=== PATIENT | female | born 1960 | race Two or more races ===

== ENCOUNTER 2020-08-19 09:46 | Inpatient (IN) | payer MEDICARE, SELFPAY ==
[2020-08-19] VITALS (38 sets, daily range): BP systolic 121–225; BP diastolic 56–99; PULSE 71–90; RESP 14–28; TEMP 36.4–37.2; O2SAT 90–99; BMI 33.3
--- NOTE | ~2020-08-19 | CT_ITS ---
EXAMINATION: CT CHEST WITHOUT CONTRAST CLINICAL INFORMATION: Pneumonia versus fluid overload. COMPARISON: Chest radiograph done earlier today. TECHNIQUE: Multidetector volumetric CT imaging of the chest was done. Axial MIP volume rendering provided. Sagittal and coronal reformatted images were obtained. This CT examination was performed using dose optimization techniques as appropriate, variously including the following: *Automated exposure control *Adjustment of mA and/or kV according to patient size (this includes techniques or standardized protocols for targeted exams where dose is matched to indication/reason for exam; i.e. extremities or head) *Use of iterative reconstruction technique DLP: 391.0 mGy-cm FINDINGS: COMMUNICATIONS PROFESSIONAL: Abnormal, similar to prior chest radiograph done earlier today. LUNGS: Concordant with chest radiograph done earlier today, multilobar bilateral diffuse patchy nodular as well as groundglass airspace disease is noted throughout both lung mock with relative sparing of the peripheral lung mock. The tracheobronchial tree is patent. There MEDIASTINUM: Right paratracheal 1.2 cm lymph node is noted. Atherosclerotic disease of the aorta and is branches including coronary arterial significant calcifications are noted. PLEURA: Trace amount of bilateral nondrainable pleural effusion is seen. AXILLA: No lymphadenopathy. UPPER ABDOMEN: Unremarkable. OSSEOUS STRUCTURES: Remarkable for presence of mild trilevel degenerative spondylosis and significant small Schmorl's node related endplate changes throughout the entire predominantly lower thoracic spine. Note is also made of generalized increased bony density, consistent with osteosclerosis of the entire visualized axial and appendicular skeleton. CT/CT chest wo con IMPRESSION: 1. Concordant with prior chest radiograph, multilobar bilateral diffuse patchy nodular as well as groundglass airspace disease is noted throughout both lung mock with relative sparing of the peripheral lung mock. The appearance is nonspecific, possible differential diagnostic consideration would include pneumonia versus cardiogenic as well as noncardiogenic pulmonary edema and also of pulmonary hemorrhage in the appropriate clinical setting. 2. Solitary right paratracheal 1.2 cm enlarged lymph node. 3. Significant atherosclerotic disease of the aorta and is branches including coronary arterial calcifications. 4. Trace amount of bilateral nondrainable pleural effusions. 5. The osseous skeleton is remarkable for presence of generalized diffuse increased density, consistent with osteosclerosis and superimposed multilevel Schmorl's node related endplate changes predominantly at lower thoracic spine, of indeterminate etiology. Clinical, lab correlation is recommended. Differential includes metabolic bone disease including chronic renal failure, as well as osseous metastasis.
--- NOTE | ~2020-08-19 | XR_ITS ---
EXAMINATION: XR CHEST CLINICAL INFORMATION: Fluid overload. COMPARISON: None TECHNIQUE: Frontal view of the chest was obtained. FINDINGS: Multilobar patchy airspace disease is present bilaterally with relative sparing of the peripheral lung mock. Trace amount of left-sided effusion is noted. The cardiac mediastinal silhouette is within normal limit. No evidence of any pulmonary venous congestion. The visualized upper abdomen is unremarkable. XR/XR chest 1V IMPRESSION: Multilobar patchy airspace disease is present bilaterally, may represent changes secondary to fluid overload versus pneumonia or combination thereof. Trace amount of left-sided nondrainable pleural effusion.
--- NOTE | 2020-08-19 10:03 | ED.GENADULT ---
HPI - General Adult General Chief complaint: Dyspnea Stated complaint: DIFF BREATHING Time Seen by Provider: 08/19/20 09:50 Source: patient Mode of arrival: ambulatory Limitations: no limitations History of Present Illness HPI narrative: patient presents to the ED waking up with shortness of breath. Patient states slight cough. Patient has a renal dialysis patient. patient last dialysis was Wednesday. Patient denies missing her dialysis. Patient denies any fever, chills, chest pain, swelling of legs. daughter states patient just moved from [facility] and started dialysis at [place] and has new PCP and new elementary school director she has not met yet. Patient states she is vaccinated against the COVID virus Related Data Home Medications Medication Instructions Recorded Confirmed aspirin 81 mg PO DAILY 08/19/20 08/19/20 atorvastatin 1 tab PO DAILY 08/19/20 08/19/20 cholecalciferol (vitamin D3) 1,000 unit PO DAILY 08/19/20 08/19/20 [Vitamin D3] ferrous sulfate 325 mg PO DAILY 08/19/20 08/19/20 insulin aspart U-100 [Novolog See Protocol SUBCUT 08/19/20 U-100 Insulin aspart] insulin glargine [Lantus U-100 See Rx Instructions .ROUTE .COMPLEX 08/19/20 08/19/20 Insulin] labetalol 1 tab PO BID 08/19/20 08/19/20 levothyroxine 1 tab PO DAILY 08/19/20 08/19/20 methylcellulose (laxative) [Fiber 500 mg PO DAILY 08/19/20 08/19/20 Therapy (m-cellulose)] omeprazole 1 cap PO BID 08/19/20 08/19/20 ondansetron HCl 1 tab PO DAILY PRN 08/19/20 08/19/20 vitamin [id number] acid 1,000 mcg PO DAILY 08/19/20 08/19/20 Allergies Allergy/AdvReac Type Severity Reaction Status Date / Time No Known Allergies Allergy Verified 08/19/20 09:57 Review of Systems Review of Systems: Yes all other systems are reviewed and are negative Constitutional: Constitutional: Reports as per HPI and Reports no additional constitutional complaints Eyes: Eyes: Reports as per HPI and Reports no additional eye complaints ENT: Reports system reviewed and no additional complaints, except as documented and Reports as per HPI Cardiovascular: Cardiovascular: Reports as per HPI, Reports no additional cardiovascular complaints, Denies chest pain and Reports dyspnea Respiratory: Respiratory: Reports as per HPI, Reports no additional respiratory complaints, Reports cough and Reports dyspnea Gastrointestinal: Gastrointestinal: Reports as per HPI and Reports no additional gastrointestinal complaints Genitourinary: Genitourinary: Reports no additional female genitourinary complaints and Reports as per HPI Musculoskeletal: Musculoskeletal: Reports no additional musculoskeletal complaints and Reports as per HPI Neurologic: Reports system reviewed and no additional complaints, except as documented and Reports as per HPI Psychiatric: Psychiatric: Reports no additional psychiatric complaints and Reports as per HPI [facility] Past Medical History Medical History (Updated 08/19/20 @ 14:32 by CARIN Vance) Diabetes mellitus End stage renal disease Social History Social History Patient Tobacco Use Status: Never used Tobacco Use of substances other than those prescribed or required for medical reasons: No Advance Directives: Yes Advance Directives Information Provided: Yes Advance Directives on File: No service: No Current occupational status: disabled Physical Exam Vital Signs: Vital Signs: Last Vital Signs Temp 98.9 F 08/19/20 10:43 Pulse 78 08/19/20 14:00 Resp 25 H 08/19/20 14:00 BP 169/94 H 08/19/20 14:00 Pulse Ox 97 08/19/20 14:00 Oxygen Flow Rate 4 08/19/20 09:58 Body Mass Index 33.3 Const: Other: mild distress General: cooperative, healthy appearing, comfortable, no acute distress, well developed, alert and awake Orientation/consciousness: patient oriented x3 HENMT: Head: Yes normal to inspection, Yes No palpable skull fracture present, Yes normocephalic, Yes atraumatic and No abrasion Eyes: General: appearance normal, both eyes and all related structures Neck: Neck: Yes normal visual inspection, Yes full ROM, Yes no lymphadenopathy, Yes no meningeal signs, Yes trachea midline, Yes supple and No tender Chest: Chest palpation & inspection: normal inspection of the chest and normal palpation of entire chest wall Resp: Effort & Inspection: normal respiratory effort, able to speak in complete sentences and uses accessory muscles ( mild) Cardio: Jugular venous distension: no JVD Heart sounds: S1 normal heart sound present and S2 normal heart sound present GI: Inspection: Yes normal to inspection and No abdominal wall ecchymosis Palpation (GI): Soft to palpation, not firm, nontender, no guarding and not rigid : General: No CVA tenderness and Yes no CVA tenderness Back/Spine/Pelvis: Back: no CVA tenderness, No CVA tenderness and No back tenderness Skin: General skin exam: no rashes or lesions noted and elasticity normal Neuro: General: patient oriented x3, gait normal, no meningeal signs and CN's II-XI intact bilaterally Extrem: Other: lower extremities negative for swelling, pitting edema, calf tenderness General: Yes normal to inspection and Yes full ROM Psych: Appearance: grossly normal, well kempt and not disheveled Course Course Course Narrative: patient on room air was 84%. Patient placed on 4 L oxygen and now at 94%. Ordered include troponin BNP. Chest x-ray ordered look for pneumonia and for signs of fluid overload. Lasix ordered. Type and screen ordered due to history of anemia in case patient needs blood transfusion. Patient states she received 3 L of blood transfusion last month. Pressure systolic 170. patient's daughter informed patient the need to go on BiPAP if no improvement and shows fluid overload. patient denies any history of asthma COPD. Reevaluation(s) Reevaluation #1: Patient's blood pressure increased to 190 systolic with accessory use of muscles. nitro paste ordered. will need BiPAP so Time: 10:43 Reevaluation #2: went to re-evaluate patient. Patient states feeling better oxygen nasal cannula. Lasix just given. Blood pressure does not improve nitro paste will be given. COVID swab negative. patient is a 8.4 with 29.4. Waiting for labs from for [facility] provider to compare hemoglobin from last visit at dialysis. Time: 10:50 Reevaluation #3: patient placed on BiPAP and nitro paste placed. Will contact Nephrology. Lactic and blood culture ordered. will contact elementary school director on-call Time: 11:16 Additional Reevaluation(s): spoke with elementary school director on-call he was informed patient's history, physical exam, and diagnostics. He is agreeable the patient to have dialysis. He recommends placing patient on nitroglycerin drip. He will come and evaluate patient. 11:32. Although x-ray shows pneumonia most likely this is a fluid overload as stated by radiologist. spoke with Dr. Ferro who is the covering elementary school director for patient care and he agreed with plan for elementary school director and he will organize dialysis for patient. Also spoke with Dr. zeynep Yanes of ICU he was informed patient's history physical exam and diagnostic and states he will take patient to the ICU. 12:04pm. History, and physical exam indicates fluid overload and not pneumonia. ICU doctor and elementary school director is agreeable with assessment Medical Decision Making MDM Narrative Medical decision making narrative: renal failurefluid overload Lab Data Result diagrams: 08/19/20 10:21 08/19/20 10:21 Labs: Lab Results 08/19/20 08/19/20 08/19/20 Range/Units 10:20 10:21 10:21 WBC 10.6 (4.8-10.8) X10*3/uL RBC 3.11 L (4.20-5.50) X10*6/uL Hgb 8.4 L (12.0-16.0) g/dl Hct 29.4 L (37-47) % MCV 94.5 (80-98) fL MCH 27.0 (27.0-33.0) pg MCHC 28.6 L (31.0-35.0) g/dl RDW 14.9 (11.0-16.0) % Plt Count 303 (160-400) X10*3/uL MPV 10.7 (9.4-12.3) fL Immature Gran % (Auto) 0.3 (0.0-0.4) % Neut % (Auto) 83.0 H (45-73) % Lymph % (Auto) 7.6 L (20-40) % Clayton % (Auto) 5.2 (2-11) % Eos % (Auto) 3.3 (0-4) % Baso % (Auto) 0.6 (0-2) % Lymph # (Auto) 0.8 L (1.2-4.9) X10*3/uL Clayton # (Auto) 0.6 (0.1-1.2) X10*3/uL Eos # (Auto) 0.4 (0.0-0.4) X10*3/uL Baso # (Auto) 0.1 (0.0-0.2) X10*3/uL Abs Immat Gran (auto) 0.03 (0.00-0.03) X10*3/uL Absolute Neuts (auto) 8.8 H (2.0-8.3) X10*3/uL Absolute Nucleated RBC 0.000 (0.0-0.012) X10*3/uL Nucleated RBC % (auto) 0.0 (0.0-0.2) /100WBC PT (9.9-13.0) SEC INR (0.9-1.1) APTT (24.1-38.0) SEC Sodium 143 (135-145) mmol/L Potassium 5.6 H (3.3-5.1) mmol/L Chloride 105 (96-108) mmol/L Carbon Dioxide 21 L (22-29) mmol/L Anion Gap 23 H (12-20) BUN 78 H (9-16) mg/dL Creatinine 10.00 H* (0.5-1.4) mg/dL Estim Creat Clear Calc 6.5 Estimated GFR 4 Random Glucose 232 H (60-115) mg/dL Lactic Acid (0.5-2.0) mmol/L Calcium 9.0 (8.4-10.2) mg/dL Total Bilirubin 0.7 (0.0-1.0) mg/dL AST 9 (5-31) U/L ALT < 6 (0-31) U/L Alkaline Phosphatase 145 H (39-117) U/L Troponin I High Sens < 3.5 (<3.5-17.0) ng/L B-Natriuretic Peptide 2241 H (<100) pg/mL Total Protein 6.5 (6.5-8.0) g/dL Albumin 3.6 (3.5-5.0) g/dL COVID-19 (ALFRED) (Negative) COVID-19 Clin Com Blood Type Antibody Screen 08/19/20 08/19/20 08/19/20 Range/Units 10:22 10:22 10:49 WBC (4.8-10.8) X10*3/uL RBC (4.20-5.50) X10*6/uL Hgb (12.0-16.0) g/dl Hct (37-47) % MCV (80-98) fL MCH (27.0-33.0) pg MCHC (31.0-35.0) g/dl RDW (11.0-16.0) % Plt Count (160-400) X10*3/uL MPV (9.4-12.3) fL Immature Gran % (Auto) (0.0-0.4) % Neut % (Auto) (45-73) % Lymph % (Auto) (20-40) % Clayton % (Auto) (2-11) % Eos % (Auto) (0-4) % Baso % (Auto) (0-2) % Lymph # (Auto) (1.2-4.9) X10*3/uL Clayton # (Auto) (0.1-1.2) X10*3/uL Eos # (Auto) (0.0-0.4) X10*3/uL Baso # (Auto) (0.0-0.2) X10*3/uL Abs Immat Gran (auto) (0.00-0.03) X10*3/uL Absolute Neuts (auto) (2.0-8.3) X10*3/uL Absolute Nucleated RBC (0.0-0.012) X10*3/uL Nucleated RBC % (auto) (0.0-0.2) /100WBC PT 12.1 (9.9-13.0) SEC INR 1.1 (0.9-1.1) APTT 46.1 H (24.1-38.0) SEC Sodium (135-145) mmol/L Potassium (3.3-5.1) mmol/L Chloride (96-108) mmol/L Carbon Dioxide (22-29) mmol/L Anion Gap (12-20) BUN (9-16) mg/dL Creatinine (0.5-1.4) mg/dL Estim Creat Clear Calc Estimated GFR Random Glucose (60-115) mg/dL Lactic Acid (0.5-2.0) mmol/L Calcium (8.4-10.2) mg/dL Total Bilirubin (0.0-1.0) mg/dL AST (5-31) U/L ALT (0-31) U/L Alkaline Phosphatase (39-117) U/L Troponin I High Sens (<3.5-17.0) ng/L B-Natriuretic Peptide (<100) pg/mL Total Protein (6.5-8.0) g/dL Albumin (3.5-5.0) g/dL COVID-19 (ALFRED) Negative (Negative) COVID-19 Clin Com See Note Blood Type O Negative Antibody Screen NEGATIVE 08/19/20 Range/Units 11:19 WBC (4.8-10.8) X10*3/uL RBC (4.20-5.50) X10*6/uL Hgb (12.0-16.0) g/dl Hct (37-47) % MCV (80-98) fL MCH (27.0-33.0) pg MCHC (31.0-35.0) g/dl RDW (11.0-16.0) % Plt Count (160-400) X10*3/uL MPV (9.4-12.3) fL Immature Gran % (Auto) (0.0-0.4) % Neut % (Auto) (45-73) % Lymph % (Auto) (20-40) % Clayton % (Auto) (2-11) % Eos % (Auto) (0-4) % Baso % (Auto) (0-2) % Lymph # (Auto) (1.2-4.9) X10*3/uL Clayton # (Auto) (0.1-1.2) X10*3/uL Eos # (Auto) (0.0-0.4) X10*3/uL Baso # (Auto) (0.0-0.2) X10*3/uL Abs Immat Gran (auto) (0.00-0.03) X10*3/uL Absolute Neuts (auto) (2.0-8.3) X10*3/uL Absolute Nucleated RBC (0.0-0.012) X10*3/uL Nucleated RBC % (auto) (0.0-0.2) /100WBC PT (9.9-13.0) SEC INR (0.9-1.1) APTT (24.1-38.0) SEC Sodium (135-145) mmol/L Potassium (3.3-5.1) mmol/L Chloride (96-108) mmol/L Carbon Dioxide (22-29) mmol/L Anion Gap (12-20) BUN (9-16) mg/dL Creatinine (0.5-1.4) mg/dL Estim Creat Clear Calc Estimated GFR Random Glucose (60-115) mg/dL Lactic Acid 1.1 (0.5-2.0) mmol/L Calcium (8.4-10.2) mg/dL Total Bilirubin (0.0-1.0) mg/dL AST (5-31) U/L ALT (0-31) U/L Alkaline Phosphatase (39-117) U/L Troponin I High Sens (<3.5-17.0) ng/L B-Natriuretic Peptide (<100) pg/mL Total Protein (6.5-8.0) g/dL Albumin (3.5-5.0) g/dL COVID-19 (ALFRED) (Negative) COVID-19 Clin Com Blood Type Antibody Screen ECG Data Interpretation: normal sinus rhythm. Incomplete right bundle-branch block. Ventricular rate 83. Pr interval 150. QRS 98. QTC 474 per Critical Care Time Critical Care Time Critical Care Time: Yes Total Critical Care Time: 60 Attestation: patient seems to be in fluid overload. Patient given Lasix. Nitropaste. Placed on BiPAP. Nephrology was called. Chest x-ray shows fluid overload. Patient placed on nitro drip. Patient admitted to ICU. Patient going for dialysis. Discharge Plan Discharge Clinical Impression: End stage renal disease, Fluid overload Patient Disposition: Admitted As Inpatient
--- NOTE | 2020-08-19 10:09 | ECG_ITS ---
Test Reason : DYSPNEA Blood Pressure : / mmHG Vent. Rate : 083 BPM Atrial Rate : 083 BPM P-R Int : 150 ms QRS Dur : 098 ms QT Int : 404 ms P-R-T Axes : 050 054 040 degrees QTc Int : 474 ms Normal sinus rhythm Incomplete right bundle branch block Borderline ECG No previous ECGs available Referred By: Branden Humphries Electronically Signed By:STEVE MONAHAN
[2020-08-19 10:29] LABS: MANUAL DIFF FLAG NO
[2020-08-19 10:30] LABS: Basophils Absolute Auto 0.1 X10*3/uL (0.0-0.2); Basophils Percent Auto 0.6 % (0-2); Eosinophils Absolute Auto 0.4 X10*3/uL (0.0-0.4); Eosinophils Percent Auto 3.3 % (0-4); Hematocrit 29.4 % (37-47); Hemoglobin 8.4 g/dl (12.0-16.0); Imm Gran Abs Auto 0.03 X10*3/uL (0.00-0.03); Imm Gran Pct Auto 0.3 % (0.0-0.4); Lymphocytes Absolute Auto 0.8 X10*3/uL (1.2-4.9); Lymphocytes Percent Auto 7.6 % (20-40); Mean Corpuscular HGB Conc 28.6 g/dl (31.0-35.0); Mean Corpuscular Volume 94.5 fL (80-98); Mean Platelet Volume 10.7 fL (9.4-12.3); Monocytes Absolute Auto 0.6 X10*3/uL (0.1-1.2); Monocytes Percent Auto 5.2 % (2-11); Neutrophils Absolute Auto 8.8 X10*3/uL (2.0-8.3); Platelet Count 303 X10*3/uL (160-400); Red Blood Count 3.11 X10*6/uL (4.20-5.50); Red Cell Distribution Width 14.9 % (11.0-16.0); White Blood Count 10.6 X10*3/uL (4.8-10.8)
[2020-08-19] MEDS: Furosemide 40 MG/4 ML VIAL IVPUSH (10:33)
[2020-08-19 10:37] LABS: INTERNATIONAL NORM RATIO 1.1 (0.9-1.1); Prothrombin Time 12.1 SEC (9.9-13.0)
[2020-08-19 10:39] LABS: Partial Thromboplastin Time 46.1 SEC (24.1-38.0)
[2020-08-19 10:46] LABS: COVID-19 Test Negative (Negative)
--- NOTE | 2020-08-19 10:50 | PC.NURSE ---
Pt alert and oriented x3, Pt reports sob and slight non-productive cough starting this morning when she woke up. Patient has a renal dialysis patient, last dialysis was done last Wednesday. She states she never missed any her dialysis. Patient denies any fever, chills, chest pain, swelling of legs.
[2020-08-19 10:55] LABS: Alanine Aminotransferase < 6 U/L (0-31); Albumin Level 3.6 g/dL (3.5-5.0); Alkaline Phosphatase 145 U/L (39-117); Anion Gap 23 (12-20); Aspartate Amino Transferase 9 U/L (5-31); Bilirubin Total 0.7 mg/dL (0.0-1.0); Blood Urea Nitrogen 78 mg/dL (9-16); Carbon Dioxide 21 mmol/L (22-29); Chloride 105 mmol/L (96-108); Creatinine Clr Calc Pharmacy 6.5; Estimated Glomerular Filt Rate 4; Glucose Random 232 mg/dL (60-115); Potassium 5.6 mmol/L (3.3-5.1); Sodium 143 mmol/L (135-145); Total Protein 6.5 g/dL (6.5-8.0)
[2020-08-19] MEDS: Nitroglycerin 2 % Oint 1 GM Packet 0.5 INCH TRANSDERMA (10:57)
[2020-08-19 10:58] LABS: B Type Natriuretic Peptide 2241 pg/mL (<100); Troponin-I High Sensitivity < 3.5 ng/L (<3.5-17.0)
--- NOTE | 2020-08-19 11:00 | PC.NURSE ---
BP in the high 190s. Labetolol given as documented. Pt remains hypertensive. IV nitro started at 20mcg/min and titrated per protocol. No apparent distress noted. Daughter at bedside.
--- NOTE | 2020-08-19 11:00 | PC.NURSE ---
On arrival pt's O2 sat high 80s RA. Pt satting at 97-98% with 4L O2 NC applied. Pt has dialysis schedule for 3pm this afternoon.
[2020-08-19] MEDS: Nitroglycerin 2 % Oint 1 GM Packet 1 INCH TRANSDERMA (11:11)
[2020-08-19] MEDS: Labetalol HCL 100 MG/20 ML VIAL 10 MG IVPUSH (11:28)
[2020-08-19 11:42] LABS: Lactic Acid 1.1 mmol/L (0.5-2.0)
[2020-08-19] MEDS: Nitroglycerin/D5W 100 MG/250 ML INFUS..BTL IVCONT (11:52)
--- NOTE | 2020-08-19 12:24 | PC.NURSE ---
pt/pt's daughter aware of plan of care for admission to hosp and dialysis of pt.
--- NOTE | 2020-08-19 12:28 | PC.NURSE ---
nitro drip increase from 20mcg/min to 40mcg/min to now 60mcg/min per dr. hair(icu) pt blair well
--- NOTE | 2020-08-19 12:29 | SUR.OPER ---
per dr. hair (icu) sbp goal is 180 or less.
--- NOTE | 2020-08-19 12:45 | PC.NURSE ---
eren (brenden) at bedside, explaining plan/procedures to pt/daughter. pt/daughter verbalizes understanding. pt/daughter aware of plan of care for admission to icu/dialysis.
--- NOTE | 2020-08-19 13:12 | P.HPCC_ITS ---
History of Present Illness Date of Service: 08/19/20 Chief Complaint: dyspnea 60-year-old chronic hemodialysis patient for end-stage renal disease with insulin dependent diabetes mellitus and hypertension who takes only labetalol for the latter and has never missed dialysis last treatment on Wednesday which was 3-1/2 hours yet she presents with what appears to be acute pulmonary edema troponin negative in normal sinus rhythm with no ST-T changes and no history of ischemic heart disease and my bedside echo shows mild concentric hypertrophy preserved systolic function mild to moderate AI and MR and aortic valve calcification but no critical stenosis but IVC is normal diameter with normal inspiratory collapse so this might all be malignant hypertension as the presenting blood pressure exceeded 210-220 systolic currently on BiPAP with a diminishing respiratory effort and respiratory rate no accessory muscle use and no diaphragmatic effort and IV nitro is currently being titrated to a systolic pressure of 180 or slightly less and were going to set up to do a dialysis because creatinine was unusually elevated at 10 and anion gap which does not represent either DKA or lactate and therefore probably due to renal insufficiency is significantly elevated at 23 so she the metabolically appears to be somewhat under dialyzed Review of Systems Review of Systems: Yes all other systems are reviewed and are negative [facility] Past Medical History Medical History (Updated 08/19/20 @ 13:18 by Cat Leonard MD) Diabetes mellitus End stage renal disease Social History Social History Patient Tobacco Use Status: Never used Tobacco Use of substances other than those prescribed or required for medical reasons: No Advance Directives: Yes Advance Directives Information Provided: Yes Advance Directives on File: No Meds Allergies Allergy/AdvReac Type Severity Reaction Status Date / Time No Known Allergies Allergy Verified 08/19/20 09:57 Active Medications: Current Medications Generic Name Dose Route Start Last Admin Trade Name Freq PRN Reason Stop Dose Admin Heparin Sodium (Porcine) 5,000 unit 08/19/20 13:15 Heparin Sodium,Porcine 5,000 Unit/Ml Vial SUBCUT Q12H [facility] Nitroglycerin/Dextrose 100 mg in 250 mls @ 0 mls/hr 08/19/20 11:45 08/19/20 12:52 IVCONT 100 mcg/min .Q0M [facility] 15 mls/hr Titration Protocol Per Protocol Omeprazole 40 mg 08/20/20 06:30 Omeprazole 40 Mg Capsule. PO DAILY@0630 [facility] Physical Exam Vital Signs: Vital Signs: Last Vital Signs Temp 98.9 F 08/19/20 10:43 Pulse 74 08/19/20 12:52 Resp 21 H 08/19/20 12:51 BP 199/77 H 08/19/20 12:51 Pulse Ox 96 08/19/20 12:51 Oxygen Flow Rate 4 08/19/20 09:58 Body Mass Index 33.3 awake and alert and appropriate and nonfocal neurologically diminishing respiratory effort on BiPAP with good bilateral carotid upstrokes just mild end-expiratory w heeze abdomen soft with good bowel sounds and no organomegaly trace right-sided peripheral edema but no acrocyanosis in no livedo Results Labs CBC and Chem 7: 08/19/20 10:21 08/19/20 10:21 Labs: Laboratory Results - last 24 hr 08/19/20 08/19/20 08/19/20 10:20 10:21 10:21 MCV 94.5 MCH 27.0 MCHC 28.6 L RDW 14.9 Plt Count 303 MPV 10.7 Immature Gran % (Auto) 0.3 Neut % (Auto) 83.0 H Lymph % (Auto) 7.6 L Loving % (Auto) 5.2 Eos % (Auto) 3.3 Baso % (Auto) 0.6 Lymph # (Auto) 0.8 L Loving # (Auto) 0.6 Eos # (Auto) 0.4 Baso # (Auto) 0.1 Abs Immat Gran (auto) 0.03 Absolute Neuts (auto) 8.8 H Absolute Nucleated RBC 0.000 Nucleated RBC % (auto) 0.0 PT INR APTT Anion Gap 23 H Estim Creat Clear Calc 6.5 Estimated GFR 4 Random Glucose 232 H Lactic Acid Calcium 9.0 Total Bilirubin 0.7 AST 9 ALT < 6 Alkaline Phosphatase 145 H Troponin I High Sens < 3.5 B-Natriuretic Peptide 2241 H Total Protein 6.5 Albumin 3.6 COVID-19 (ALFRED) COVID-19 Clin Com Blood Type Antibody Screen 08/19/20 08/19/20 08/19/20 10:22 10:22 10:49 MCV MCH MCHC RDW Plt Count MPV Immature Gran % (Auto) Neut % (Auto) Lymph % (Auto) Loving % (Auto) Eos % (Auto) Baso % (Auto) Lymph # (Auto) Loving # (Auto) Eos # (Auto) Baso # (Auto) Abs Immat Gran (auto) Absolute Neuts (auto) Absolute Nucleated RBC Nucleated RBC % (auto) PT 12.1 INR 1.1 APTT 46.1 H Anion Gap Estim Creat Clear Calc Estimated GFR Random Glucose Lactic Acid Calcium Total Bilirubin AST ALT Alkaline Phosphatase Troponin I High Sens B-Natriuretic Peptide Total Protein Albumin COVID-19 (ALFRED) Negative COVID-19 Clin Com See Note Blood Type O Negative Antibody Screen NEGATIVE 08/19/20 11:19 MCV MCH MCHC RDW Plt Count MPV Immature Gran % (Auto) Neut % (Auto) Lymph % (Auto) Loving % (Auto) Eos % (Auto) Baso % (Auto) Lymph # (Auto) Loving # (Auto) Eos # (Auto) Baso # (Auto) Abs Immat Gran (auto) Absolute Neuts (auto) Absolute Nucleated RBC Nucleated RBC % (auto) PT INR APTT Anion Gap Estim Creat Clear Calc Estimated GFR Random Glucose Lactic Acid 1.1 Calcium Total Bilirubin AST ALT Alkaline Phosphatase Troponin I High Sens B-Natriuretic Peptide Total Protein Albumin COVID-19 (ALFRED) COVID-19 Clin Com Blood Type Antibody Screen Imaging Radiologist's Impressions: Impressions Chest X-Ray 08/19/20 09:57 IMPRESSION: Multilobar patchy airspace disease is present bilaterally, may represent changes secondary to fluid overload versus pneumonia or combination thereof. Trace amount of left-sided nondrainable pleural effusion. Assessment and Plan (1) Acute pulmonary edema with congestive heart failure: Status: Acute (2) Hypertensive cardiovascular disease: Status: Acute (3) End stage renal disease: Status: Acute (4) Diabetes mellitus: Status: Acute (5) Malignant hypertension requiring acute intensive management: Status: Acute will continue IV nitroglycerin to keep blood pressure at or slightly below 180 systolic and then follow blood pressure as dialysis is pursued but I do not think a lot of volume needs to be removed and wean IV nitro as her blood pressure in breathing tolerate and then eventually the same to for BiPAP will consider an oral ARB and at some point she might need an MRA looking for renovascular disease ordered a CT angiogram and will discuss that with renal
--- NOTE | 2020-08-19 14:17 | MHC.CM.PN ---
Pt admitted to ICU with pulmonary edema: on BiPAP and not able to participate in conversation: Pt's dtr Mary at bedside and able to provide information: Pt is new to [facility] and resides with her spouse. She is independent with all care needs: attends Hemodialysis at [facility] in [facility] - just started this week. No services and has working diabetic supplies/meter. She is active, drives. D/C plan is for a return to home with family support/outpt HD resumption. IMM left with pt: HCP copy requested. Family will transport home when medically ready. CM to follow for changes in d/c plan
[2020-08-19] MEDS: Heparin Sodium,Porcine 5,000 UNIT/ML VIAL 5000 UNIT SUBCUT (15:20)
--- NOTE | 2020-08-19 15:30 | PC.NURSE ---
IV nitro titrated to 100mcg/min, BP remains in the high 190s. Pt remains on BIPAP fio2 at 30%. Daughter remains at bedside, awaiting bed assignment
--- NOTE | 2020-08-19 15:37 | PC.NURSE ---
Report given to receiving ICU nurse MELODY Gibbs. Pt transported to ICU by this senior writer.
[2020-08-19] MEDS: Albumin Human 25 % 100 ML 200 ML IV (16:53)
[2020-08-19 17:08] LABS: Glucose, Whole Blood 134 mg/dL (60-115)
--- NOTE | 2020-08-19 19:12 | CONS_ITS ---
DATE OF SERVICE: 08/19/2020 REASON FOR CONSULTATION: Evaluation of ESRD, admitted with volume overload. HISTORY OF PRESENT ILLNESS: Ms. Olmstead is a very pleasant 60-year-old female with history of end-stage kidney disease secondary to hypertensive disorder and diabetic nephropathy. She came to the emergency room after an episode of increased shortness of breath, which she developed last night at home. She reports dyspnea on exertion, which has progressed to dyspnea at rest. She went to her last dialysis treatment on Wednesday as per her usual regimen. She had 2 L of fluid removed. Her weight was down to 95 kg. She reports feeling very well on Wednesday night, until Wednesday night when she developed increased dyspnea as mentioned above. She denies chest pain, fevers, chills, cough, hemoptysis, or any specific symptoms. She has been drinking increased amounts of fluid as she reports her volume of water and liquids has increased since she has felt very thirsty. She denies any other symptoms. On arrival, her blood pressure was 206/84. Her pulse was 74 per minute. Her oxygen saturation is up to 97% on 4 L nasal cannula. She was started on BiPAP, nitroglycerin paste. She had a chest x-ray, which showed increased volume overload with concern for pneumonia as well, she has been seen by the ICU team as well as the Medicine team as there has been consideration for admission to the ICU. At the time of my evaluation, the patient denies any chest pain. She had a bedside echo that showed mild concentric hypertrophy with preserved systolic function with [id number] AI and MR with calcification of aortic valve. There was no critical aortic stenosis. Her IVC was normal diameter surprisingly. Since admitted to the emergency room, remains on IV nitroglycerin. Her systolic blood pressure is now down to the 170/180. PAST MEDICAL HISTORY: ESRD, on intermittent hemodialysis Wednesday, Wednesday, Wednesday at the [facility] under Dr. Tuttle's care. Hypertensive disorder. Type 2 diabetes mellitus. Gastroesophageal reflux disease. MEDICATIONS: Have been reviewed as per medical record. ALLERGIES: NO KNOWN DRUG ALLERGIES. SOCIAL HISTORY: Lives at home with her daughter. Recently moved to this area from [place], [place]. Denies history of smoking cigarettes. Drinking alcohol or illicit drugs. FAMILY HISTORY: Noncontributory. REVIEW OF SYSTEMS: Reports as mentioned above. Dyspnea on exertion overnight. She went to dialysis and remains very compliant with the treatment. Denies any nausea, vomiting, diarrhea, abdominal pain, melena, headache, visual changes, hallucinations, cough, hemoptysis, hematemesis, or bright red blood per rectum. Rest of the 10-point review of systems negative. PHYSICAL EXAMINATION: GENERAL: She is alert, presently in no apparent distress. VITAL SIGNS: Her blood pressure is down to 180/85, saturations are 97% on 4 L nasal cannula. Heart rate of 78 per minute. ORAL: Moist mucosa. NECK: Reveals no jugular venous distention. LUNGS: Decreased breath sounds bilaterally with minimal inspiratory crackles. ABDOMEN: Obese, soft, and nontender. Positive bowel sounds. EXTREMITIES: Showed no ankle edema. Her left upper extremity has a well-developed AV fistula with a positive thrill and bruit. NEUROLOGIC: Nonfocal. The patient is moving 4 extremities and able to speak in full sentences. LABORATORY DATA: Potassium 5.6, hemoglobin 8.4, white count 34188. Bicarbonate 21. Troponin less than 3.5. BNP level 2200. Albumin 3.6. Lactic acid 1.1. DIAGNOSTIC DATA: EKG shows incomplete right bundle-branch block. Heart rate of 83 per minute, QT corrected 474. QRS 98. Chest x-ray with bilateral infiltrates, multilobar patchy airspace disease bilaterally, CHF versus pneumonia. Trace amount of left-sided pleural effusion. IMPRESSION: Ms. Olmstead is a very pleasant 60-year-old female with known medical history of end stage renal disease, on intermittent hemodialysis Wednesday, Wednesday, and Wednesday at the [facility] under Dr. Tuttle's care. She had received dialysis on Wednesday, which she completed for 3.5 hours. She did well for the rest of the week and except for last night developed increased fatigue manifested as dyspnea on exertion, which subsequently developed dyspnea at rest. She is in the emergency room, where she was found to have accelerated hypertension with blood pressure in the 200s systolic. She was treated with BiPAP, IV nitroglycerin. Her systolic blood pressure has come down to the 180s. 1. End stage renal disease, due for her regular dialysis today. 2. Malignant hypertension with hypervolemia presentation/increased volume overload. 3. Type 2 diabetes mellitus/diabetic nephropathy. 4. Hyperkalemia. 5. Anemia of chronic kidney disease. RECOMMENDATIONS: The patient admits that she has been drinking excess amount of fluid over the weekend which may also trigger her volume overload. In addition, has had uncontrolled hypertension with accelerated high blood pressure since admission. Clearly, this may have been the major trigger for heart failure presentation due to noncompliant ventricle. She is receiving initial acute care in the emergency Room. She is due for dialysis today. Clearly would benefit from further fluid removal. I have made arrangements for her to be dialyzed today on her regular schedule of Wednesday, Wednesday, and Wednesday to remove 3 L to 4 L of fluid target hopefully continue to challenge her dry weight. Her treatment should be increased to 4 hours on a regular basis. We will continue to monitor her hemoglobin during hospitalization, part of it may be hemodilution. Hypertension, will need management as she is to continue with home medications, if need will increment of labetalol. Presently, she is on 300 mg twice a day. I suggest to increase to 400 mg 3 times a day. Continue with hydralazine as it is 100 mg twice a day. Amlodipine increased to 10 mg daily. Followup echocardiogram final results will benefit from the addition of angiotensin receptor shonda or LINDA inhibitor. We will continue to follow during the hospitalization and assess need for dialysis on the following days. Continue to monitor her potassium and phosphate. Keep a low-sodium renal diet and will follow during the hospital stay. Thank you for allowing us to be part of her care. MD NEVIN Espino/DREA / [phone] ASHLEY
[2020-08-19] MEDS: Acetaminophen 325 MG TABLET 650 MG PO (19:44)
[2020-08-19] MEDS: niCARdipine HCL 25 MG in 0.9 % Sodium Chloride 250 ML 52 MG IVCONT (20:27)
[2020-08-20] VITALS (21 sets, daily range): BP systolic 126–189; BP diastolic 52–88; PULSE 71–86; RESP 15–23; TEMP 36–36.7; O2SAT 92–97; BMI 30.7
[2020-08-20 01:16] LABS: Glucose, Whole Blood 116 mg/dL (60-115)
[2020-08-20] MEDS: niCARdipine HCL 25 MG in 0.9 % Sodium Chloride 250 ML 52 MG IVCONT ×2 (01:22→06:10)
[2020-08-20] MEDS: Heparin Sodium,Porcine 5,000 UNIT/ML VIAL 5000 UNIT SUBCUT ×2 (01:24→13:50)
[2020-08-20 05:39] LABS: MANUAL DIFF FLAG NO
[2020-08-20 05:42] LABS: Basophils Absolute Auto 0.1 X10*3/uL (0.0-0.2); Basophils Percent Auto 0.8 % (0-2); Eosinophils Absolute Auto 0.4 X10*3/uL (0.0-0.4); Eosinophils Percent Auto 4.4 % (0-4); Hematocrit 27.6 % (37-47); Hemoglobin 8.1 g/dl (12.0-16.0); Imm Gran Abs Auto 0.03 X10*3/uL (0.00-0.03); Imm Gran Pct Auto 0.4 % (0.0-0.4); Lymphocytes Absolute Auto 1.3 X10*3/uL (1.2-4.9); Lymphocytes Percent Auto 15.4 % (20-40); Mean Corpuscular HGB Conc 29.3 g/dl (31.0-35.0); Mean Corpuscular Hemoglobin 27.1 pg (27.0-33.0); Mean Corpuscular Volume 92.3 fL (80-98); Mean Platelet Volume 10.7 fL (9.4-12.3); Monocytes Absolute Auto 0.5 X10*3/uL (0.1-1.2); Monocytes Percent Auto 5.6 % (2-11); Neutrophils Absolute Auto 6.1 X10*3/uL (2.0-8.3); Neutrophils Percent Auto 73.4 % (45-73); Platelet Count 272 X10*3/uL (160-400); Red Blood Count 2.99 X10*6/uL (4.20-5.50); Red Cell Distribution Width 14.8 % (11.0-16.0); White Blood Count 8.4 X10*3/uL (4.8-10.8)
[2020-08-20 05:50] LABS: INTERNATIONAL NORM RATIO 1.1 (0.9-1.1); Prothrombin Time 12.5 SEC (9.9-13.0)
[2020-08-20 05:52] LABS: Partial Thromboplastin Time 39.4 SEC (24.1-38.0)
[2020-08-20 06:08] LABS: B Type Natriuretic Peptide 1066 pg/mL (<100)
[2020-08-20] MEDS: Omeprazole 40 MG CAPSULE.DR PO (06:12)
[2020-08-20 06:19] LABS: Alanine Aminotransferase < 6 U/L (0-31); Albumin Level 3.6 g/dL (3.5-5.0); Alkaline Phosphatase 123 U/L (39-117); Anion Gap 18 (12-20); Aspartate Amino Transferase 10 U/L (5-31); Bilirubin Direct 0.2 mg/dL (0.0-0.5); Bilirubin Total 0.4 mg/dL (0.0-1.0); Blood Urea Nitrogen 30 mg/dL (9-16); Calcium 8.6 mg/dL (8.4-10.2); Carbon Dioxide 22 mmol/L (22-29); Chloride 101 mmol/L (96-108); Creatinine Clr Calc Pharmacy 12.1; Estimated Glomerular Filt Rate 8; Glucose Random 104 mg/dL (60-115); Phosphorus 6.1 mg/dL (2.7-4.5); Potassium 4.5 mmol/L (3.3-5.1); Sodium 136 mmol/L (135-145); Total Protein 6.4 g/dL (6.5-8.0)
[2020-08-20] MEDS: Labetalol HCL 200 MG TABLET PO ×2 (08:15→21:24)
--- NOTE | 2020-08-20 10:06 | MHC.CLN ---
RE: CONSULT PT WITH POOR PO INTAKE NSG REPORTS 100% X 1 MEAL DIET RX: 2000DM 2GM NA LOW PHOS, LOW K+ WILL ADD GLUCERNA BID TO INCREASE KCALS R/T POOR PO MONITOR PO INTAKE CLOSELY FOLLOWING
--- NOTE | 2020-08-20 10:30 | PC.NURSE ---
Pt A&Ox3, denies pain, denies SOB, states breathing is much better compared to yesterday, currently on 2L/min NC SaO2 97%, posterior L lung mock throughout slight fine crackles. Nicardipine drip off since 0800, 200mg PO labetolol given at 0816, most recent BP 147/69. Pt is in NSR, no edema, aortic systolic cresendo mumur auscultated. Bed locked and in lowest position, call barr in reach. Last void was 300ml urine 2100 pre-dialysis of -2.8L. Pt on diabetic diet eating without issue. Daughter Mary updated by phone.
--- NOTE | 2020-08-20 10:55 | PM.CCPN ---
Subjective Subjective Date of Service: 08/20/20 Interval History: 60-year-old moderately obese female insulin-dependent diabetic and hypertensive with end-stage renal disease hemodialysis dependent who had her regularly scheduled dialysis here yesterday without difficulty presented with a malignant phase of hypertension manifested by pulmonary edema responding to IV nitroglycerin and BiPAP and she promptly came off both and just required low-dose of IV nicardipine which has since been weaned and she is back on her oral labetalol doing well eating and blood pressure 149 systolic Critical Care Time (minutes): 30 Physical Exam Vital Signs: Vital Signs: Last Vital Signs Temp 97.8 F 08/20/20 07:00 Pulse 74 08/20/20 10:00 Resp 22 H 08/20/20 10:00 BP 147/69 H 08/20/20 10:00 Pulse Ox 97 08/20/20 10:00 Oxygen Flow Rate 4 08/19/20 09:58 Body Mass Index 30.7 Const: Other: awake alert and nonfocal neurologically cardiovascular with no neck vein distension and good bilateral carotid upstrokes no gallops bedside echo showing normal LV and RV size and function chest is clear no adventitious eran nds abdomen benign with no organomegaly and good bowel sounds no edema Objective Data Labs CBC & Chem 7: 08/20/20 05:20 08/20/20 05:20 Labs: Laboratory Results - last 24 hr 08/19/20 08/19/20 08/19/20 10:20 10:21 10:49 WBC RBC Hgb Hct MCV MCH MCHC RDW Plt Count MPV Immature Gran % (Auto) Neut % (Auto) Lymph % (Auto) [place] % (Auto) Eos % (Auto) Baso % (Auto) Lymph # (Auto) [place] # (Auto) Eos # (Auto) Baso # (Auto) Abs Immat Gran (auto) Absolute Neuts (auto) Absolute Nucleated RBC Nucleated RBC % (auto) PT INR APTT Sodium 143 Potassium 5.6 H Chloride 105 Carbon Dioxide 21 L Anion Gap 23 H BUN 78 H Creatinine 10.00 H* Estim Creat Clear Calc 6.5 Estimated GFR 4 POC Glucose Random Glucose 232 H Lactic Acid Calcium 9.0 Phosphorus Magnesium Total Bilirubin 0.7 Direct Bilirubin AST 9 ALT < 6 Alkaline Phosphatase 145 H Troponin I High Sens < 3.5 B-Natriuretic Peptide 2241 H Total Protein 6.5 Albumin 3.6 Blood Type O Negative Antibody Screen NEGATIVE 08/19/20 08/19/20 08/20/20 11:19 17:04 01:12 WBC RBC Hgb Hct MCV MCH MCHC RDW Plt Count MPV Immature Gran % (Auto) Neut % (Auto) Lymph % (Auto) [place] % (Auto) Eos % (Auto) Baso % (Auto) Lymph # (Auto) [place] # (Auto) Eos # (Auto) Baso # (Auto) Abs Immat Gran (auto) Absolute Neuts (auto) Absolute Nucleated RBC Nucleated RBC % (auto) PT INR APTT Sodium Potassium Chloride Carbon Dioxide Anion Gap BUN Creatinine Estim Creat Clear Calc Estimated GFR POC Glucose 134 H 116 H Random Glucose Lactic Acid 1.1 Calcium Phosphorus Magnesium Total Bilirubin Direct Bilirubin AST ALT Alkaline Phosphatase Troponin I High Sens B-Natriuretic Peptide Total Protein Albumin Blood Type Antibody Screen 08/20/20 08/20/20 08/20/20 05:20 05:20 05:20 WBC RBC Hgb Hct MCV MCH MCHC RDW Plt Count MPV Immature Gran % (Auto) Neut % (Auto) Lymph % (Auto) [place] % (Auto) Eos % (Auto) Baso % (Auto) Lymph # (Auto) [place] # (Auto) Eos # (Auto) Baso # (Auto) Abs Immat Gran (auto) Absolute Neuts (auto) Absolute Nucleated RBC Nucleated RBC % (auto) PT 12.5 INR 1.1 APTT 39.4 H Sodium 136 Potassium 4.5 Chloride 101 Carbon Dioxide 22 Anion Gap 18 BUN 30 H D Creatinine 5.37 H* Estim Creat Clear Calc 12.1 Estimated GFR 8 POC Glucose Random Glucose 104 D Lactic Acid Calcium 8.6 Phosphorus 6.1 H Magnesium 2.0 Total Bilirubin 0.4 Direct Bilirubin 0.2 AST 10 ALT < 6 Alkaline Phosphatase 123 H Troponin I High Sens B-Natriuretic Peptide 1066 H Total Protein 6.4 L Albumin 3.6 Blood Type Antibody Screen 08/20/20 08/20/20 05:20 05:20 WBC 8.4 RBC 2.99 L Hgb 8.1 L Hct 27.6 L MCV 92.3 MCH 27.1 MCHC 29.3 L RDW 14.8 Plt Count 272 MPV 10.7 Immature Gran % (Auto) 0.4 Neut % (Auto) 73.4 H Lymph % (Auto) 15.4 L [place] % (Auto) 5.6 Eos % (Auto) 4.4 H Baso % (Auto) 0.8 Lymph # (Auto) 1.3 [place] # (Auto) 0.5 Eos # (Auto) 0.4 Baso # (Auto) 0.1 Abs Immat Gran (auto) 0.03 Absolute Neuts (auto) 6.1 Absolute Nucleated RBC 0.000 Nucleated RBC % (auto) 0.0 PT INR APTT Sodium Potassium Chloride Carbon Dioxide Anion Gap BUN Creatinine Estim Creat Clear Calc Estimated GFR POC Glucose Random Glucose Lactic Acid Calcium Phosphorus Magnesium Total Bilirubin Cancelled Direct Bilirubin Cancelled AST Cancelled ALT Cancelled Alkaline Phosphatase Cancelled Troponin I High Sens B-Natriuretic Peptide Total Protein Cancelled Albumin Cancelled Blood Type Antibody Screen Progress Note: A&P Assessment and plan (1) Malignant hypertension requiring acute intensive management: Status: Acute (2) Diabetes mellitus: Status: Acute (3) End stage renal disease: Status: Acute (4) Hypertensive cardiovascular disease: Status: Acute (5) Acute pulmonary edema with congestive heart failure: Status: Acute Assessment and Plan: so the plan is transfer to the floor with mandaeism of her labetalol at an appropriate dose I believe to keep blood pressures between 140 and 155 systolic for now and currently she is only on 200 mg twice daily and also needs mandaeism of her insulin dose and she is back on a diet again and BiPAP requirement is a removed Quality Stroke Does the patient have a stroke diagnosis?: No VTE Prior VTE?: No VTE Risk Level:: Medical - moderate - high VTE Device Contraindication: N/A - Device Ordered VTE Drug Contraindication: N/A - Med Ordered
[2020-08-20 11:55] LABS: Glucose, Whole Blood 197 mg/dL (60-115)
[2020-08-20 15:55] LABS: Glucose, Whole Blood 146 mg/dL (60-115)
[2020-08-20] MEDS: ondansetron HCL 4 MG/2 ML VIAL IVPUSH (17:29)
[2020-08-20] MEDS: Omeprazole 20 MG CAPSULE.DR PO (17:29)
--- NOTE | 2020-08-20 17:51 | P.PNNP_ITS ---
Subjective Subjective Date of Service: 08/20/20 Interval history: 60-year-old moderately obese female insulin-dependent diabetic and hypertensive with end-stage renal disease hemodialysis dependent who had her regularly scheduled dialysis here yesterday without difficulty presented with a malignant phase of hypertension manifested by pulmonary edema responding to IV nitroglycerin and BiPAP and she promptly came off both and just required low-dose of IV nicardipine which has since been weaned and she is back on her oral labetalol doing well eating and blood pressure 149-160 systolic Physical Exam Vital Signs: Vital Signs: Last Vital Signs Temp 96.8 F 08/20/20 15:07 Pulse 74 08/20/20 15:07 Resp 15 08/20/20 15:07 BP 160/88 H 08/20/20 15:07 Pulse Ox 94 08/20/20 15:07 Oxygen Flow Rate 4 08/19/20 09:58 Body Mass Index 30.7 ora moist mucosa lungs clear s1s2 abd soft +BSs ext no edema neuro awake alert Ox3 Objective Data Labs CBC & Chem 7: 08/20/20 05:20 08/20/20 05:20 Labs: Laboratory Results - last 24 hr 08/20/20 08/20/20 08/20/20 01:12 05:20 05:20 WBC RBC Hgb Hct MCV MCH MCHC RDW Plt Count MPV Immature Gran % (Auto) Neut % (Auto) Lymph % (Auto) [place] % (Auto) Eos % (Auto) Baso % (Auto) Lymph # (Auto) [place] # (Auto) Eos # (Auto) Baso # (Auto) Abs Immat Gran (auto) Absolute Neuts (auto) Absolute Nucleated RBC Nucleated RBC % (auto) PT 12.5 INR 1.1 APTT 39.4 H Sodium 136 Potassium 4.5 Chloride 101 Carbon Dioxide 22 Anion Gap 18 BUN 30 H D Creatinine 5.37 H* Estim Creat Clear Calc 12.1 Estimated GFR 8 POC Glucose 116 H Random Glucose 104 D Calcium 8.6 Phosphorus 6.1 H Magnesium 2.0 Total Bilirubin 0.4 Direct Bilirubin 0.2 AST 10 ALT < 6 Alkaline Phosphatase 123 H B-Natriuretic Peptide Total Protein 6.4 L Albumin 3.6 08/20/20 08/20/20 08/20/20 05:20 05:20 05:20 WBC 8.4 RBC 2.99 L Hgb 8.1 L Hct 27.6 L MCV 92.3 MCH 27.1 MCHC 29.3 L RDW 14.8 Plt Count 272 MPV 10.7 Immature Gran % (Auto) 0.4 Neut % (Auto) 73.4 H Lymph % (Auto) 15.4 L [place] % (Auto) 5.6 Eos % (Auto) 4.4 H Baso % (Auto) 0.8 Lymph # (Auto) 1.3 [place] # (Auto) 0.5 Eos # (Auto) 0.4 Baso # (Auto) 0.1 Abs Immat Gran (auto) 0.03 Absolute Neuts (auto) 6.1 Absolute Nucleated RBC 0.000 Nucleated RBC % (auto) 0.0 PT INR APTT Sodium Potassium Chloride Carbon Dioxide Anion Gap BUN Creatinine Estim Creat Clear Calc Estimated GFR POC Glucose Random Glucose Calcium Phosphorus Magnesium Total Bilirubin Cancelled Direct Bilirubin Cancelled AST Cancelled ALT Cancelled Alkaline Phosphatase Cancelled B-Natriuretic Peptide 1066 H Total Protein Cancelled Albumin Cancelled 08/20/20 08/20/20 11:52 15:52 WBC RBC Hgb Hct MCV MCH MCHC RDW Plt Count MPV Immature Gran % (Auto) Neut % (Auto) Lymph % (Auto) [place] % (Auto) Eos % (Auto) Baso % (Auto) Lymph # (Auto) [place] # (Auto) Eos # (Auto) Baso # (Auto) Abs Immat Gran (auto) Absolute Neuts (auto) Absolute Nucleated RBC Nucleated RBC % (auto) PT INR APTT Sodium Potassium Chloride Carbon Dioxide Anion Gap BUN Creatinine Estim Creat Clear Calc Estimated GFR POC Glucose 197 H 146 H Random Glucose Calcium Phosphorus Magnesium Total Bilirubin Direct Bilirubin AST ALT Alkaline Phosphatase B-Natriuretic Peptide Total Protein Albumin Microbiology Microbiology Results: Microbiology 08/19/20 11:19 Blood - Venous Blood Culture - Preliminary No growth after 24 hours. 08/19/20 11:19 Blood - Venous Blood Culture - Preliminary No growth after 24 hours. Assessment & Plan Assessment and plan (1) End stage renal disease: Status: Acute Assessment and Plan: next HD tomorrow on her regular regimen MWF (2) Malignant hypertension requiring acute intensive management: Status: Acute Assessment and Plan: meds reviewed, consider increase dose of Labetalol (3) Fluid overload: Status: Acute Assessment and Plan: keep strict Low Na diet, fluid restriction, pt admits to driking high amounts of water and fluids on weekend due to summer and feeling very thirsty, needs education Time Spent With Patient Time: Total time spent is greater than 50% in coordination of care (as documented) at patient's floor/unit and/or counseling patient: Procedures Date of Service Date of Service: 08/20/20 Progress Note: Quality Stroke Does the patient have a stroke diagnosis?: No
[2020-08-20 20:34] LABS: Glucose, Whole Blood 148 mg/dL (60-115)
[2020-08-21] MEDS: Heparin Sodium,Porcine 5,000 UNIT/ML VIAL 5000 UNIT SUBCUT ×2 (00:47→13:41)
[2020-08-21 04:00] VITALS: BP 153/63; PULSE 75; RESP 18; TEMP 36.7; O2SAT 93
[2020-08-21 04:52] VITALS: BMI 36.4
[2020-08-21] MEDS: Levothyroxine Sodium 75 MCG TABLET PO (06:05)
[2020-08-21] MEDS: Omeprazole 20 MG CAPSULE.DR PO ×2 (06:05→16:56)
[2020-08-21 06:59] LABS: Glucose, Whole Blood 98 mg/dL (60-115)
[2020-08-21 07:04] LABS: MANUAL DIFF FLAG NO
[2020-08-21 07:12] LABS: Basophils Absolute Auto 0.1 X10*3/uL (0.0-0.2); Basophils Percent Auto 0.9 % (0-2); Eosinophils Absolute Auto 0.5 X10*3/uL (0.0-0.4); Eosinophils Percent Auto 6.9 % (0-4); Hematocrit 26.6 % (37-47); Hemoglobin 7.9 g/dl (12.0-16.0); Imm Gran Abs Auto 0.03 X10*3/uL (0.00-0.03); Imm Gran Pct Auto 0.4 % (0.0-0.4); Lymphocytes Absolute Auto 1.5 X10*3/uL (1.2-4.9); Lymphocytes Percent Auto 22.1 % (20-40); Mean Corpuscular HGB Conc 29.7 g/dl (31.0-35.0); Mean Corpuscular Hemoglobin 27.1 pg (27.0-33.0); Mean Corpuscular Volume 91.1 fL (80-98); Monocytes Absolute Auto 0.6 X10*3/uL (0.1-1.2); Monocytes Percent Auto 8.3 % (2-11); Neutrophils Absolute Auto 4.3 X10*3/uL (2.0-8.3); Neutrophils Percent Auto 61.4 % (45-73); Platelet Count 312 X10*3/uL (160-400); Red Blood Count 2.92 X10*6/uL (4.20-5.50); Red Cell Distribution Width 14.5 % (11.0-16.0)
[2020-08-21 07:15] LABS: Prothrombin Time 11.9 SEC (9.9-13.0)
[2020-08-21 07:18] LABS: Partial Thromboplastin Time 37.7 SEC (24.1-38.0)
[2020-08-21 07:20] VITALS: BP 170/73; PULSE 71; RESP 18; TEMP 36.3; O2SAT 93
[2020-08-21 07:52] LABS: Alanine Aminotransferase 6 U/L (0-31); Albumin Level 3.4 g/dL (3.5-5.0); Alkaline Phosphatase 123 U/L (39-117); Aspartate Amino Transferase 10 U/L (5-31); Bilirubin Direct 0.2 mg/dL (0.0-0.5); Bilirubin Total 0.4 mg/dL (0.0-1.0); Total Protein 6.1 g/dL (6.5-8.0)
[2020-08-21 07:59] VITALS: BP 170/73; PULSE 71
[2020-08-21] MEDS: Labetalol HCL 200 MG TABLET PO (07:59)
[2020-08-21] MEDS: Cholecalciferol (Vitamin D3) 25 MCG TABLET PO (07:59)
[2020-08-21 08:00] LABS: Anion Gap 21 (12-20); Blood Urea Nitrogen 63 mg/dL (9-16); Calcium 8.4 mg/dL (8.4-10.2); Carbon Dioxide 19 mmol/L (22-29); Chloride 101 mmol/L (96-108); Creatinine Clr Calc Pharmacy 8.9; Estimated Glomerular Filt Rate 5; Glucose Random 100 mg/dL (60-115); Magnesium 2.2 mg/dL (1.6-2.6); Phosphorus 7.3 mg/dL (2.7-4.5); Potassium 4.8 mmol/L (3.3-5.1); Sodium 136 mmol/L (135-145)
[2020-08-21] MEDS: Aspirin 81 MG TAB.CHEW PO (08:00)
[2020-08-21] MEDS: Ferrous Sulfate 324 MG TABLET.DR PO (08:00)
[2020-08-21] MEDS: Atorvastatin Calcium 20 MG TABLET PO (08:00)
[2020-08-21 11:00] LABS: Glucose, Whole Blood 132 mg/dL (60-115)
[2020-08-21 11:25] VITALS: BP 118/72; PULSE 67; RESP 18; TEMP 36.2; O2SAT 99
--- NOTE | 2020-08-21 11:44 | PM.PNNEP ---
Subjective Subjective Date of Service: 08/21/20 Interval history: toelratingt HD well today, BP improving to the 130s Physical Exam Vital Signs: Vital Signs: Last Vital Signs Temp 97.2 F 08/21/20 11:25 Pulse 67 08/21/20 11:25 Resp 18 08/21/20 11:25 BP 118/72 08/21/20 11:25 Pulse Ox 99 08/21/20 11:25 Oxygen Flow Rate 4 08/19/20 09:58 Body Mass Index 36.4 oral m oist mucosa lungs clear s1s2 abd soft +BSs ext no edema LUE AVF+ Objective Data Labs CBC & Chem 7: 08/21/20 06:02 08/21/20 06:02 Labs: Laboratory Results - last 24 hr 08/20/20 08/20/20 08/20/20 11:52 15:52 20:31 WBC RBC Hgb Hct MCV MCH MCHC RDW Plt Count MPV Immature Gran % (Auto) Neut % (Auto) Lymph % (Auto) [place] % (Auto) Eos % (Auto) Baso % (Auto) Lymph # (Auto) [place] # (Auto) Eos # (Auto) Baso # (Auto) Abs Immat Gran (auto) Absolute Neuts (auto) Absolute Nucleated RBC Nucleated RBC % (auto) PT INR APTT Sodium Potassium Chloride Carbon Dioxide Anion Gap BUN Creatinine Estim Creat Clear Calc Estimated GFR POC Glucose 197 H 146 H 148 H Random Glucose Calcium Phosphorus Magnesium Total Bilirubin Direct Bilirubin AST ALT Alkaline Phosphatase Total Protein Albumin 08/21/20 08/21/20 08/21/20 06:02 06:02 06:02 WBC 7.0 RBC 2.92 L Hgb 7.9 L Hct 26.6 L MCV 91.1 MCH 27.1 MCHC 29.7 L RDW 14.5 Plt Count 312 MPV 11.0 Immature Gran % (Auto) 0.4 Neut % (Auto) 61.4 Lymph % (Auto) 22.1 [place] % (Auto) 8.3 Eos % (Auto) 6.9 H Baso % (Auto) 0.9 Lymph # (Auto) 1.5 [place] # (Auto) 0.6 Eos # (Auto) 0.5 H Baso # (Auto) 0.1 Abs Immat Gran (auto) 0.03 Absolute Neuts (auto) 4.3 Absolute Nucleated RBC 0.000 Nucleated RBC % (auto) 0.0 PT INR APTT Sodium 136 Potassium 4.8 Chloride 101 Carbon Dioxide 19 L Anion Gap 21 H BUN 63 H D Creatinine 7.64 H* Estim Creat Clear Calc 8.9 Estimated GFR 5 POC Glucose Random Glucose 100 Calcium 8.4 Phosphorus 7.3 H Magnesium 2.2 Total Bilirubin 0.4 Direct Bilirubin 0.2 AST 10 ALT 6 Alkaline Phosphatase 123 H Total Protein 6.1 L Albumin 3.4 L 08/21/20 08/21/20 08/21/20 06:03 06:55 10:53 WBC RBC Hgb Hct MCV MCH MCHC RDW Plt Count MPV Immature Gran % (Auto) Neut % (Auto) Lymph % (Auto) [place] % (Auto) Eos % (Auto) Baso % (Auto) Lymph # (Auto) [place] # (Auto) Eos # (Auto) Baso # (Auto) Abs Immat Gran (auto) Absolute Neuts (auto) Absolute Nucleated RBC Nucleated RBC % (auto) PT 11.9 INR 1.0 APTT 37.7 Sodium Potassium Chloride Carbon Dioxide Anion Gap BUN Creatinine Estim Creat Clear Calc Estimated GFR POC Glucose 98 132 H Random Glucose Calcium Phosphorus Magnesium Total Bilirubin Direct Bilirubin AST ALT Alkaline Phosphatase Total Protein Albumin Microbiology Microbiology Results: Microbiology 08/19/20 11:19 Blood - Venous Blood Culture - Preliminary No growth after 24 hours. 08/19/20 11:19 Blood - Venous Blood Culture - Preliminary No growth after 24 hours. Assessment & Plan Assessment and plan (1) End stage renal disease: Status: Acute Assessment and Plan: tolerating HD well goal 3.5 L fluid removal today, BP improving, plan to HD on Wednesday if DC will go to her outpt center, pls weigh patient before DC re-establish new dry weight (2) Malignant hypertension requiring acute intensive management: Status: Acute Assessment and Plan: continue with current meds, i fneed titrate up labetalol rx, goal BP<130/80 Time Spent With Patient Time: Total time spent is greater than 50% in coordination of care (as documented) at patient's floor/unit and/or counseling patient: Procedures Date of Service Date of Service: 08/21/20 Progress Note: Quality Stroke Does the patient have a stroke diagnosis?: No
[2020-08-21 13:26] VITALS: BP 118/72; PULSE 67; O2SAT 99
--- NOTE | 2020-08-21 14:04 | P.DS_ITS ---
DS: Providers Provider Date of Service: 08/22/20 Date of admission: 08/19/20 13:05 Primary care physician: Mason Lopez MD DS: Diagnosis Discharge Diagnosis (1) End stage renal disease: Status: Acute (2) Malignant hypertension requiring acute intensive management: Status: Resolved DS: Medications Discharge Medications Home Medications: Home Medications Medication Instructions Recorded Confirmed Calcium 500 500 mg PO TID 08/19/20 08/19/20 aspirin 81 mg PO DAILY 08/19/20 08/19/20 atorvastatin 1 tab PO DAILY 08/19/20 08/19/20 cholecalciferol (vitamin D3) 1,000 unit PO DAILY 08/19/20 08/19/20 [Vitamin D3] ferrous sulfate 325 mg PO DAILY 08/19/20 08/19/20 insulin aspart U-100 [Novolog See Protocol SUBCUT 08/19/20 U-100 Insulin aspart] insulin glargine [Lantus U-100 See Rx Instructions .ROUTE .COMPLEX 08/19/20 08/19/20 Insulin] labetalol 1 tab PO BID 08/19/20 08/19/20 levothyroxine 1 tab PO DAILY 08/19/20 08/19/20 methylcellulose (laxative) [Fiber 500 mg PO DAILY 08/19/20 08/19/20 Therapy (m-cellulose)] omeprazole 1 cap PO BID 08/19/20 08/19/20 ondansetron HCl 1 tab PO DAILY PRN 08/19/20 08/19/20 vitamin R64-tmasu acid 1,000 mcg PO DAILY 08/19/20 08/19/20 DS: Summary Hospital Course Hospital Course: 60-year-old moderately obese female insulin-dependent diabetic and hypertensive with end-stage renal disease hemodialysis dependent who had her regularly scheduled dialysisi the day before without difficulty and presented with a malignant phase of hypertension manifested by pulmonary edema and acute respiratory failure and was admitted to the ICU and managed with IV nitroglycerin, nicardipine and BiPAP and underwent urgent dialysis and improved rapidly with improvment in blood pressure as well. She the next day as well as today. She continues to be doing well and her blood pressure has come down to presently 118/72. When she presented, blood pressure was as high 225/91. She has been evaluated by Physical therapy and is recommended to go back home with family support. She takes Labetalol 300 bid at home and this will be restarted upon discharge. Critical Care Time (minutes): 30 Time Spent with Patient Time attestation: Total time spent providing and/or coordinating discharge services: Discharge coordination time: Greater than 30 minutes Quality: Stroke Does the patient have a stroke diagnosis?: No Physical Exam Vital Signs: Vital Signs: Last Vital Signs Temp 97.2 F 08/21/20 11:25 Pulse 67 08/21/20 13:26 Resp 18 08/21/20 11:25 BP 118/72 08/21/20 13:26 Pulse Ox 99 08/21/20 13:26 Oxygen Flow Rate 4 08/19/20 09:58 Body Mass Index 36.4 Const: Other: General: AO X 3, no acute distress Resp: CTA bilateral CVS: S1,S2,RRR GI: +BS, NT, no distention Skin: No rash Neuro: motor grossly intact Psych: appropriate affect DS: Data Data Completed and Pending Labs on day of discharge: Laboratory Results - last 24 hr 08/20/20 08/20/20 08/21/20 15:52 20:31 06:02 WBC RBC Hgb Hct MCV MCH MCHC RDW Plt Count MPV Immature Gran % (Auto) Neut % (Auto) Lymph % (Auto) [place] % (Auto) Eos % (Auto) Baso % (Auto) Lymph # (Auto) [place] # (Auto) Eos # (Auto) Baso # (Auto) Abs Immat Gran (auto) Absolute Neuts (auto) Absolute Nucleated RBC Nucleated RBC % (auto) PT INR APTT Sodium 136 Potassium 4.8 Chloride 101 Carbon Dioxide 19 L Anion Gap 21 H BUN 63 H D Creatinine 7.64 H* Estim Creat Clear Calc 8.9 Estimated GFR 5 POC Glucose 146 H 148 H Random Glucose 100 Calcium 8.4 Phosphorus 7.3 H Magnesium 2.2 Total Bilirubin Direct Bilirubin AST ALT Alkaline Phosphatase Total Protein Albumin 08/21/20 08/21/20 08/21/20 06:02 06:02 06:03 WBC 7.0 RBC 2.92 L Hgb 7.9 L Hct 26.6 L MCV 91.1 MCH 27.1 MCHC 29.7 L RDW 14.5 Plt Count 312 MPV 11.0 Immature Gran % (Auto) 0.4 Neut % (Auto) 61.4 Lymph % (Auto) 22.1 [place] % (Auto) 8.3 Eos % (Auto) 6.9 H Baso % (Auto) 0.9 Lymph # (Auto) 1.5 [place] # (Auto) 0.6 Eos # (Auto) 0.5 H Baso # (Auto) 0.1 Abs Immat Gran (auto) 0.03 Absolute Neuts (auto) 4.3 Absolute Nucleated RBC 0.000 Nucleated RBC % (auto) 0.0 PT 11.9 INR 1.0 APTT 37.7 Sodium Potassium Chloride Carbon Dioxide Anion Gap BUN Creatinine Estim Creat Clear Calc Estimated GFR POC Glucose Random Glucose Calcium Phosphorus Magnesium Total Bilirubin 0.4 Direct Bilirubin 0.2 AST 10 ALT 6 Alkaline Phosphatase 123 H Total Protein 6.1 L Albumin 3.4 L 08/21/20 08/21/20 06:55 10:53 WBC RBC Hgb Hct MCV MCH MCHC RDW Plt Count MPV Immature Gran % (Auto) Neut % (Auto) Lymph % (Auto) [place] % (Auto) Eos % (Auto) Baso % (Auto) Lymph # (Auto) [place] # (Auto) Eos # (Auto) Baso # (Auto) Abs Immat Gran (auto) Absolute Neuts (auto) Absolute Nucleated RBC Nucleated RBC % (auto) PT INR APTT Sodium Potassium Chloride Carbon Dioxide Anion Gap BUN Creatinine Estim Creat Clear Calc Estimated GFR POC Glucose 98 132 H Random Glucose Calcium Phosphorus Magnesium Total Bilirubin Direct Bilirubin AST ALT Alkaline Phosphatase Total Protein Albumin Preliminary micro results at discharge 08/19/20 11:19 Blood Culture - Preliminary Blood - Venous No growth after 48 hours. 08/19/20 11:19 Blood Culture - Preliminary Blood - Venous No growth after 48 hours. Discharge Plan Discharge Anticipated Discharge Date/Time: 08/21/20 13:58 Patient Disposition: Home, Self-Care Discharge Diagnosis: Fluid overload, Hypertension Referrals: Po,Mason Casarez MD [Primary Care Provider] - 1 Week Discharge Medications: Continued Lantus U-100 Insulin 100 unit/mL solution See Rx Instructions .ROUTE .COMPLEX RF: 0 insulin aspart U-100 [Novolog U-100 Insulin aspart] 100 unit/mL solution See Protocol sliding scale dose subcut RF: 0 ferrous sulfate 325 mg (65 mg iron) Tablet 325 mg PO DAILY RF: 0 aspirin 81 mg Tablet 81 mg PO DAILY RF: 0 vitamin C86-bksqc acid 1,000 mcg PO DAILY RF: 0 Fiber Therapy (m-cellulose) 500 mg Tablet 500 mg PO DAILY RF: 0 Calcium 500 500 mg PO TID RF: 0 atorvastatin 20 mg tablet 1 tab PO DAILY Qty: 30 RF: 0 ondansetron HCl 4 mg tablet 1 tab PO DAILY PRN (Reason: nausea/vomiting) Qty: 30 RF: 0 omeprazole 20 mg capsule,delayed release(DR/EC) 1 cap PO BID Qty: 30 RF: 0 labetalol 300 mg tablet 1 tab PO BID Qty: 60 RF: 0 cholecalciferol (vitamin D3) [Vitamin D3] 25 mcg (1,000 unit) Tablet 1,000 unit PO DAILY 30 Days Qty: 0 RF: 0 Discontinued levothyroxine 75 mcg tablet 1 tab PO DAILY RF: 0 No Action levothyroxine 75 mcg tablet 75 mcg PO DAILY Qty: 30 RF: 2 Discharge Orders: Discharge Order (Routine); Ordered 08/21/20 Ordered By: Marcin Albrecht Diet: advance to usual diet and diabetic diet Activity on Discharge: As tolerated Stand Alone Forms: Patient Portal Discharge page Care Plan Goals: Avoid rehospitalization Health Concerns: Fluid overload, uncontrolled blood pressure Plan of Treatment: Go to dialysis as usual and take all your medications as directed and follow up with your Doctor in a week Assessment: as above Discharge Date/Time: 08/21/20 17:14
--- NOTE | 2020-08-21 14:05 | MHC.CM.PN ---
Patient has been medically cleared for dc to home today, no services.Last IMM addressed on 08/19/20.
[2020-08-21 15:35] VITALS: BP 110/94; PULSE 76; RESP 15; TEMP 37.1; O2SAT 98
[2020-08-21 16:01] LABS: Glucose, Whole Blood 158 mg/dL (60-115)
== END 2020-08-21 17:14 | disposition home or self-care (01) | DRG 291 ==
LOC: HO.ED 10:17 → HO.ICU 13:24 → HO.IMC 08-20 13:38
PROVIDERS: Physician Assistant; Admitting Provider Internal Medicine Cardiovascular Disease; Emergency Provider Emergency Medicine; PCP Internal Medicine; Visit Provider Internal Medicine
DX: I13.2 Hypertensive heart and chronic kidney disease with heart failure and with stage 5 chronic kidney disease, or end stage renal disease (principal); N18.6 End stage renal disease; J96.00 Acute respiratory failure, unspecified whether with hypoxia or hypercapnia; E11.42 Type 2 diabetes mellitus with diabetic polyneuropathy; Z20.822 Contact with and (suspected) exposure to COVID-19; E11.22 Type 2 diabetes mellitus with diabetic chronic kidney disease; E66.9 Obesity, unspecified; Z68.36 Body mass index [BMI] 36.0-36.9, adult; D63.1 Anemia in chronic kidney disease; I50.9 Heart failure, unspecified; Z99.2 Dependence on renal dialysis; Z79.4 Long term (current) use of insulin; Z79.82 Long term (current) use of aspirin; Z79.890 Hormone replacement therapy; Z79.899 Other long term (current) drug therapy
CPT/HCPCS: 36415; 71045; 71250; 80048; 80053; 80076; 82947; 83605; 83735; 83880; 84100; 84484; 85025; 85610; 85730; 86850; 86900; 86901; 87040; 87635; 90999; 93005; 94660; 97161; 99285; J1940; J2405; P9047

== ENCOUNTER 2020-09-05 13:12 | Outpatient (REF) | payer MEDICARE, SELFPAY ==
[2020-09-05 14:16] LABS: MANUAL DIFF FLAG NO
[2020-09-05 14:26] LABS: Basophils Percent Auto 0.3 % (0-2); Eosinophils Absolute Auto 0.8 X10*3/uL (0.0-0.4); Hematocrit 27.7 % (37-47); Imm Gran Abs Auto 0.03 X10*3/uL (0.00-0.03); Imm Gran Pct Auto 0.3 % (0.0-0.4); Immature Retic Fraction 16.9 % (3.0-15.9); Lymphocytes Absolute Auto 1.4 X10*3/uL (1.2-4.9); Lymphocytes Percent Auto 14.5 % (20-40); Mean Corpuscular HGB Conc 28.9 g/dl (31.0-35.0); Mean Corpuscular Hemoglobin 27.2 pg (27.0-33.0); Mean Corpuscular Volume 94.2 fL (80-98); Mean Platelet Volume 10.7 fL (9.4-12.3); Monocytes Absolute Auto 0.7 X10*3/uL (0.1-1.2); Monocytes Percent Auto 7.2 % (2-11); Neutrophils Absolute Auto 6.6 X10*3/uL (2.0-8.3); Neutrophils Percent Auto 69.7 % (45-73); Platelet Count 330 X10*3/uL (160-400); Red Blood Count 2.94 X10*6/uL (4.20-5.50); Red Cell Distribution Width 15.7 % (11.0-16.0); Retic HGB Equivalent 25.2 pg (30.0-35.0); Reticulocyte Percent 1.6 % (0.5-1.8); Reticulocytes Absolute 0.047 X10*6/uL (0.026-0.095); White Blood Count 9.5 X10*3/uL (4.8-10.8)
[2020-09-05 14:46] LABS: B Type Natriuretic Peptide 426 pg/mL (<100)
[2020-09-05 14:55] LABS: Alanine Aminotransferase < 6 U/L (0-31); Albumin Level 3.7 g/dL (3.5-5.0); Alkaline Phosphatase 168 U/L (39-117); Anion Gap 17 (12-20); Aspartate Amino Transferase 9 U/L (5-31); Bilirubin Total 0.4 mg/dL (0.0-1.0); Blood Urea Nitrogen 39 mg/dL (9-16); Calcium 9.3 mg/dL (8.4-10.2); Carbon Dioxide 30 mmol/L (22-29); Chloride 102 mmol/L (96-108); Cholesterol 127 mg/dL; Estimated Glomerular Filt Rate 6; Glucose Random 161 mg/dL (60-115); HDL Cholesterol 52 mg/dL; Iron 31 mcg/dL (30-160); LDL Cholesterol Calculated 39 mg/dl; Percent Iron Saturation 13 % (15-50); Potassium 5.4 mmol/L (3.3-5.1); Sodium 144 mmol/L (135-145); Total Iron Binding Capacity 246 mcg/dL (228-428); Triglycerides 182 mg/dL; Unsaturated Iron Binding 215 ug/dL
[2020-09-05 15:02] LABS: Ferritin 796 ng/mL (10-250); Free T4 (Free Thyroxine) 0.98 ng/dL (0.71-1.85); Thyroid Stimulating Hormone 1.38 uIU/mL (0.32-4.0); Vitamin D 25-OH Total 30.2 ng/mL (>30)
[2020-09-05 15:12] LABS: Folate 6.5 ng/mL (> or = 4.0); Vitamin B12 1424 pg/mL (200-900)
[2020-09-05 15:40] LABS: Creatinine Urine 102.57 mg/dL
== END 2020-09-05 13:13 | disposition home or self-care (01) ==
LOC: HO.LAB 13:12
PROVIDERS: PCP Internal Medicine; Visit Provider Internal Medicine
DX: D12.6 Benign neoplasm of colon, unspecified (principal); E78.00 Pure hypercholesterolemia, unspecified; E11.65 Type 2 diabetes mellitus with hyperglycemia
CPT/HCPCS: 36415; 80053; 80061; 82043; 82306; 82607; 82728; 82746; 83540; 83880; 84439; 84443; 85025; 85045

== ENCOUNTER 2020-09-16 18:41 | Emergency (ER) | payer MEDICARE, SELFPAY ==
--- NOTE | ~2020-09-16 | XR_ITS ---
EXAMINATION: XR CHEST CLINICAL INFORMATION: Shortness of breath COMPARISON: 08/19/2020 TECHNIQUE: 2 views of the chest were obtained. FINDINGS: Enlarged cardiomediastinal silhouette. Low lung volumes. Blunting of the left costophrenic sulcus may reflect a small effusion. No dense consolidation. No pneumothorax. Mild degenerative changes in the spine. XR/XR chest 2V IMPRESSION: Small left effusion.
--- NOTE | ~2020-09-16 | CT_ITS ---
EXAMINATION: CT ANGIOGRAM HEAD AND NECK CLINICAL INFORMATION: Left-sided neck pain COMPARISON: None TECHNIQUE: Test bolus sequences followed by intravenous administration 70 mL of Omnipaque 300 intravenous contrast. Helical imaging was performed in the axial plane from the mediastinum to the skull vertex. Delayed postcontrast imaging of the head was also performed. The data was processed at the medical technologist hematology's workstation for generation of MIP sequences. Three-dimensional volume rendered reformatted images were also generated at an offline 3-D workstation. This CT examination was performed using dose optimization techniques as appropriate, variously including the following: *Automated exposure control *Adjustment of mA and/or kV according to patient size (this includes techniques or standardized protocols for targeted exams where dose is matched to indication/reason for exam; i.e. extremities or head) *Use of iterative reconstruction technique The degree of stenosis determined by NASCET criteria. DLP: 2355 mGy-cm FINDINGS: SOFT TISSUES AND LUNG APICES: No overt abnormality is appreciated. CTA NECK: The aortic arch has a classic configuration and the major arch vessel origins are non-stenotic. The vertebral arteries are co-dominant and both vertebral origins are widely patent. Both common carotid arteries are normal in course and caliber. Both internal carotid arteries demonstrate mild atherosclerotic plaque without significant stenosis. CTA HEAD: There is normal opacification of the major intracranial vessels. No acute proximal large vessel occlusion, focal flow-limiting stenosis, or saccular intracranial aneurysm is identified. No abnormal parenchymal enhancement or regional oligemia is visualized. HEAD (noncontrast and delayed): No intracranial mass, intercerebral edema, hemorrhage, or midline shift is evident. The ventricles and sulci are stable in size and configuration. No extra-axial collections are appreciated. Mild patchy subcortical and periventricular white matter low-attenuation changes statistically related to chronic white matter small vessel ischemic disease. No pathologic intracranial enhancement. Dural sinuses are patent. The paranasal sinuses are well-aerated and clear. CT/CT angio head neck IMPRESSION: * No large vessel occlusion or hemodynamic significant stenosis within the intracranial or extracranial arterial vasculature. * No evidence of vertebral artery dissection. * Moderate white matter small vessel ischemic changes.
[2020-09-16 19:18] VITALS: BP 151/64; PULSE 86; RESP 18; TEMP 37.6; O2SAT 96; BMI 35.9
[2020-09-16 20:00] VITALS: BP 137/66; PULSE 83; RESP 15; O2SAT 95
[2020-09-16 20:04] LABS: MANUAL DIFF FLAG NO
[2020-09-16 20:06] LABS: Basophils Absolute Auto 0.1 X10*3/uL (0.0-0.2); Basophils Percent Auto 0.4 % (0-2); Eosinophils Absolute Auto 0.4 X10*3/uL (0.0-0.4); Eosinophils Percent Auto 2.8 % (0-4); Hematocrit 28.5 % (37-47); Hemoglobin 8.4 g/dl (12.0-16.0); Imm Gran Abs Auto 0.08 X10*3/uL (0.00-0.03); Imm Gran Pct Auto 0.6 % (0.0-0.4); Lymphocytes Absolute Auto 1.1 X10*3/uL (1.2-4.9); Lymphocytes Percent Auto 8.2 % (20-40); Mean Corpuscular HGB Conc 29.5 g/dl (31.0-35.0); Mean Corpuscular Hemoglobin 26.9 pg (27.0-33.0); Mean Corpuscular Volume 91.3 fL (80-98); Mean Platelet Volume 9.4 fL (9.4-12.3); Monocytes Absolute Auto 0.8 X10*3/uL (0.1-1.2); Monocytes Percent Auto 5.9 % (2-11); Neutrophils Absolute Auto 11.2 X10*3/uL (2.0-8.3); Neutrophils Percent Auto 82.1 % (45-73); Platelet Count 351 X10*3/uL (160-400); Red Blood Count 3.12 X10*6/uL (4.20-5.50); Red Cell Distribution Width 15.9 % (11.0-16.0); White Blood Count 13.6 X10*3/uL (4.8-10.8)
[2020-09-16 20:36] LABS: Anion Gap 17 (12-20); Blood Urea Nitrogen 25 mg/dL (9-16); Calcium 9.3 mg/dL (8.4-10.2); Carbon Dioxide 29 mmol/L (22-29); Chloride 99 mmol/L (96-108); Creatinine Clr Calc Pharmacy 13.1; Estimated Glomerular Filt Rate 9; Glucose Random 163 mg/dL (60-115); Potassium 4.4 mmol/L (3.3-5.1); Sodium 141 mmol/L (135-145)
[2020-09-16 20:37] LABS: Troponin-I High Sensitivity < 3.5 ng/L (<3.5-17.0)
--- NOTE | 2020-09-16 22:18 | ED.GENADULT ---
HPI - General Adult General Chief complaint: General Medical Stated complaint: left side neck pain Time Seen by Provider: 09/16/20 22:18 Source: patient and family Mode of arrival: ambulatory Limitations: no limitations and language barrier History of Present Illness HPI narrative: Patient with ES already on dialysis had dialysis that out 13:30 just in last 17 minutes of dialysis noticed severe left neck pain and dialysis was stopped. No headache no nausea no vomiting no seizure activities no back pain patient never had similar pain in the past no chest pain no paresthesias or focal weakness also complaining of mild shortness of breath no cough fever or chills Related Data Home Medications Medication Instructions Recorded Confirmed Calcium 500 500 mg PO TID 08/19/20 09/05/20 aspirin 81 mg tablet 81 mg PO DAILY 08/19/20 09/05/20 ferrous sulfate 325 mg (65 mg 325 mg PO DAILY 08/19/20 09/05/20 iron) tablet insulin aspart U-100 100 unit/mL See Protocol SUBCUT 08/19/20 09/05/20 subcutaneous solution (Novolog U-100 Insulin aspart) insulin glargine 100 unit/mL See Rx Instructions .ROUTE .COMPLEX 08/19/20 09/05/20 subcutaneous solution (Lantus U-100 Insulin) methylcellulose (laxative) 500 mg 500 mg PO DAILY 08/19/20 09/05/20 tablet (Fiber Therapy (methylcellulose)) vitamin M06-[id number] acid 1,000 mcg PO DAILY 08/19/20 09/05/20 insulin aspart U-100 100 unit/mL 5 unit SUBCUT TID 09/05/20 09/05/20 subcutaneous solution (Novolog U-100 Insulin aspart) Previous Rx's Medication Instructions Recorded atorvastatin 20 mg tablet 1 tab PO DAILY #30 tab 08/21/20 cholecalciferol (vitamin D3) 25 1,000 unit PO DAILY 30 Days #0 tab 08/21/20 mcg (1,000 unit) tablet (Vitamin D3) labetalol 300 mg tablet 1 tab PO BID #60 tab 08/21/20 omeprazole 20 mg capsule,delayed 1 cap PO BID #30 cap 08/21/20 release ondansetron HCl 4 mg tablet 1 tab PO DAILY PRN #30 tab 08/21/20 levothyroxine 75 mcg tablet 75 mcg PO DAILY #30 tab 08/23/20 Allergies Allergy/AdvReac Type Severity Reaction Status Date / Time No Known Allergies Allergy Verified 09/16/20 19:18 Review of Systems Review of Systems: Yes all other systems are reviewed and are negative [facility] Past Medical History Medical History Congestive heart failure End stage renal disease Hypercholesterolemia Hypertension Hypertensive cardiovascular disease Hypothyroid Type 2 diabetes mellitus with hyperglycemia Surgical History S/P NADEGE-BSO Family History Family History Mother Chronic kidney disease CAD (coronary artery disease) Father No problems noted. Sister Thyroid cancer Brother No problems noted. Daughter No problems noted. Daughter No problems noted. Social History Social History Household Members: Spouse Housing: Apartment Do you presently have visiting nurse or other home services: No Alcohol intake: never Patient Tobacco Use Status: Never used Tobacco e-Cigarette/Vaping Use: Never Used Second Hand Smoke Exposure: No Use of substances other than those prescribed or required for medical reasons: No Advance Directives: Yes Advance Directives on File: Yes Advance Directives Date on File: 08/19/20 service: No Current occupational status: disabled Physical Exam Vital Signs: Vital Signs: Last Vital Signs Temp 99.6 F 09/16/20 19:18 Pulse 83 09/17/20 00:00 Resp 15 09/17/20 00:00 BP 131/68 09/17/20 00:00 Pulse Ox 97 09/17/20 00:00 Body Mass Index 35.9 Appearance: Alert. Oriented X3. No acute distress. Eyes: PERRLA, No Nystagmus ENT: Pharynx normal. Oral Mucosa moist Neck: Normal inspection. Neck supple. Left carotid bruit+ diffuse tenderness on the left side on palpation CVS: Normal heart rate and rhythm. Pulses normal. Ejection systolic murmur at base 2/6 Respiratory: No respiratory distress. Equal air entry bilateral, no wheezing/rales/rhonchi Abdomen: Soft and nontender. Bowel sounds are present, no mass palpable, no CVA tenderness Skin: Skin warm and dry. Normal skin color. Normal skin turgor. Extremities: No lower extremity edema. No calf tenderness Neuro: Oriented X 3. No motor deficit. No sensory deficit.No cerebellar signs , cranial nerves II-XII intact Medical Decision Making MDM Narrative Medical decision making narrative: Patient nonspecific pain in left side of the neck CTA head and neck was done to rule out any carotid dissection which was negative patient white count was slightly elevated without any source of infection likely secondary reaction patient advised to follow-up with PCP Lab Data Lab results reviewed: Yes I reviewed the patient's lab results. Result diagrams: 09/16/20 19:59 09/16/20 19:59 Labs: Lab Results 09/16/20 09/16/20 09/16/20 Range/Units 19:59 19:59 19:59 WBC 13.6 H (4.8-10.8) X10*3/uL RBC 3.12 L (4.20-5.50) X10*6/uL Hgb 8.4 L (12.0-16.0) g/dl Hct 28.5 L (37-47) % MCV 91.3 (80-98) fL MCH 26.9 L (27.0-33.0) pg MCHC 29.5 L (31.0-35.0) g/dl RDW 15.9 (11.0-16.0) % Plt Count 351 (160-400) X10*3/uL MPV 9.4 (9.4-12.3) fL Immature Gran % (Auto) 0.6 H (0.0-0.4) % Neut % (Auto) 82.1 H (45-73) % Lymph % (Auto) 8.2 L (20-40) % [place] % (Auto) 5.9 (2-11) % Eos % (Auto) 2.8 (0-4) % Baso % (Auto) 0.4 (0-2) % Lymph # (Auto) 1.1 L (1.2-4.9) X10*3/uL [place] # (Auto) 0.8 (0.1-1.2) X10*3/uL Eos # (Auto) 0.4 (0.0-0.4) X10*3/uL Baso # (Auto) 0.1 (0.0-0.2) X10*3/uL Abs Immat Gran (auto) 0.08 H (0.00-0.03) X10*3/uL Absolute Neuts (auto) 11.2 H (2.0-8.3) X10*3/uL Absolute Nucleated RBC 0.000 (0.0-0.012) X10*3/uL Nucleated RBC % (auto) 0.0 (0.0-0.2) /100WBC Sodium 141 (135-145) mmol/L Potassium 4.4 (3.3-5.1) mmol/L Chloride 99 (96-108) mmol/L Carbon Dioxide 29 (22-29) mmol/L Anion Gap 17 (12-20) BUN 25 H (9-16) mg/dL Creatinine 4.96 H* (0.5-1.4) mg/dL Estim Creat Clear Calc 13.1 Estimated GFR 9 Random Glucose 163 H (60-115) mg/dL Calcium 9.3 (8.4-10.2) mg/dL Troponin I High Sens < 3.5 (<3.5-17.0) ng/L Discharge Plan Discharge Prescriptions: No Action levothyroxine 75 mcg tablet 75 mcg PO DAILY Qty: 30 RF: 2 Lantus U-100 Insulin 100 unit/mL solution See Rx Instructions .ROUTE .COMPLEX RF: 0 insulin aspart U-100 [Novolog U-100 Insulin aspart] 100 unit/mL solution See Protocol sliding scale dose subcut RF: 0 ferrous sulfate 325 mg (65 mg iron) Tablet 325 mg PO DAILY RF: 0 aspirin 81 mg Tablet 81 mg PO DAILY RF: 0 vitamin F03-ydyms acid 1,000 mcg PO DAILY RF: 0 Fiber Therapy (m-cellulose) 500 mg Tablet 500 mg PO DAILY RF: 0 Calcium 500 500 mg PO TID RF: 0 atorvastatin 20 mg tablet 1 tab PO DAILY Qty: 30 RF: 0 ondansetron HCl 4 mg tablet 1 tab PO DAILY PRN (Reason: nausea/vomiting) Qty: 30 RF: 0 omeprazole 20 mg capsule,delayed release(DR/EC) 1 cap PO BID Qty: 30 RF: 0 labetalol 300 mg tablet 1 tab PO BID Qty: 60 RF: 0 cholecalciferol (vitamin D3) [Vitamin D3] 25 mcg (1,000 unit) Tablet 1,000 unit PO DAILY 30 Days Qty: 0 RF: 0 insulin aspart U-100 [Novolog U-100 Insulin aspart] 100 unit/mL solution 5 unit subcut TID RF: 0
[2020-09-17] VITALS: BP 131/68; PULSE 83; RESP 15; O2SAT 97
[2020-09-17] MEDS: iohexoL 350 MG/ML 100 ML INFUS..BTL 70 ML IV (00:36)
[2020-09-17] MEDS: oxyCODONE HCl Immed Release 5 MG TABLET PO (01:49)
== END 2020-09-17 02:09 | disposition home or self-care (01) ==
PROVIDERS: Emergency Provider Internal Medicine; PCP Internal Medicine
DX: M54.2 Cervicalgia (principal); E11.22 Type 2 diabetes mellitus with diabetic chronic kidney disease; I13.2 Hypertensive heart and chronic kidney disease with heart failure and with stage 5 chronic kidney disease, or end stage renal disease; I50.9 Heart failure, unspecified; N18.6 End stage renal disease; Z99.2 Dependence on renal dialysis; Z79.4 Long term (current) use of insulin; Z79.899 Other long term (current) drug therapy; Z79.02 Long term (current) use of antithrombotics/antiplatelets; Z79.82 Long term (current) use of aspirin
CPT/HCPCS: 36415; 70496; 70498; 71046; 80048; 84484; 85025; 99284; 99285; Q9967

== ENCOUNTER 2020-09-26 11:37 | Outpatient (REF) | payer MEDICARE, SELFPAY ==
--- NOTE | ~2020-09-26 | XR_ITS ---
EXAMINATION: XR KNEE, LEFT CLINICAL INFORMATION: Osteoarthritis. COMPARISON: None TECHNIQUE: AP and lateral views of the left knee. FINDINGS: Mild medial compartment joint space narrowing. Tiny patellofemoral and medial compartment marginal osteophytes. Patellofemoral subchondral cystic change. No acute fracture or dislocation. No abnormal soft tissue calcification. Small joint effusion. XR/XR knee LT 2V IMPRESSION: Mild medial and patellofemoral compartment osteoarthritis. Small joint effusion.
--- NOTE | ~2020-09-26 | XR_ITS ---
EXAMINATION: XR KNEE, RIGHT CLINICAL INFORMATION: Primary osteoarthritis. Pain. COMPARISON: None TECHNIQUE: Four views of the right knee. FINDINGS: There is mild reduction in the medial and patellofemoral compartment joint space. There are subchondral erosive changes along the articular patella with mild to moderate suprapatellar joint effusion. No loose bodies seen. No fracture or dislocation. XR/XR knee RT 2V IMPRESSION: Mild degenerative changes medial and patellofemoral compartment with mild suprapatellar joint effusion. No loose body or acute fracture seen.
== END 2020-09-26 11:38 | disposition home or self-care (01) ==
LOC: HO.XRAY 11:37
PROVIDERS: PCP Internal Medicine; Visit Provider Internal Medicine
DX: M17.0 Bilateral primary osteoarthritis of knee (principal)
CPT/HCPCS: 73560

== ENCOUNTER 2020-10-08 00:50 | Emergency (ER) | payer MEDICARE, SELFPAY ==
[2020-10-08] VITALS (14 sets, daily range): BP systolic 117–151; BP diastolic 50–68; PULSE 76–87; RESP 15–127; TEMP 37.1–37.4; O2SAT 94–100; BMI 34.0
--- NOTE | ~2020-10-08 | XR_ITS ---
EXAMINATION: XR CHEST CLINICAL INFORMATION: Shortness of breath COMPARISON: 09/16/2020 TECHNIQUE: 2 views of the chest were obtained. FINDINGS: Lung volumes are symmetric. Small left pleural effusion appears increased from prior, with adjacent basilar opacity favoring atelectasis. Right lung is well-expanded and clear. No evidence of pneumothorax or pulmonary edema. Cardiac silhouette remains enlarged. No acute osseous findings are seen. XR/XR chest 2V IMPRESSION: Small left pleural effusion, increased from 09/16/2020, with adjacent basilar opacity favoring atelectasis.
--- NOTE | 2020-10-08 02:07 | ED_ITS ---
HPI - General Adult General Chief complaint: Weakness Stated complaint: Flu like symptoms Time Seen by Provider: 10/08/20 01:36 Source: patient Mode of arrival: wheelchair Limitations: no limitations History of Present Illness HPI narrative: Patient comes to the emergency room complaining of fatigue, epigastric burning sensation. Patient states that today she received a phone call, yesterday when she was in dialysis she was told that her hemoglobin is 6.5. She was instructed to come to the emergency room as she may need blood transfusion. Patient states that for the last 2 days she has increased fatigue, weakness. Patient reports temperature of 100.2 degrees today at 20:00. Patient complaining of epigastric pain, states that she has had multiple endoscopies both upper and lower, all done at [facility]. Patient denies rectal bleeding or dark stool. 01/15/2020 upper endoscopy report: In the stomach where says singular 8-10 mm polyp with inflamed top covered with recent blood, treated with APC cautery. In the antrum, multiple polyps or raised lesions or both, 1 polyp being significantly ulcerated 01/15/2020 colonoscopy report: A very large quantity of blood throughout the entire colon, 1 large bruising 2 cm pedunculated polyp at 20 cm in the sigmoid, stuck clipped, 1 large a 10 mm pedunculated polyp in the mid ascending colon, stalk clipped, removed via hot cautery, diverticulosis in the sigmoid colon, internal hemorrhoids 06/24/2020 upper endoscopy report: Very mild gastritis, for 1 cm polyps removed by cold snare 06/24/2020 colonoscopy report: 1 cm multilobulated irritated lesion at 28 cm at the site of prior high-grade dysplasia polyp, diverticulosis in the sigmoid colo n, small internal hemorrhoids on retroflexion, Related Data Home Medications Medication Instructions Recorded Confirmed Calcium 500 500 mg PO TID 08/19/20 10/08/20 aspirin 81 mg tablet 81 mg PO DAILY 08/19/20 10/08/20 ferrous sulfate 325 mg (65 mg 325 mg PO Q OTHER DAY 08/19/20 10/08/20 iron) tablet methylcellulose (laxative) 500 mg 500 mg PO DAILY 08/19/20 10/08/20 tablet (Fiber Therapy (methylcellulose)) vitamin D38-stzza acid 1,000 mcg PO DAILY 08/19/20 10/08/20 sevelamer carbonate 800 mg tablet 2,400 mg PO TID 10/08/20 10/08/20 (Renvela) Previous Rx's Medication Instructions Recorded atorvastatin 20 mg tablet 1 tab PO DAILY #30 tab 08/21/20 cholecalciferol (vitamin D3) 25 1,000 unit PO DAILY 30 Days #0 tab 08/21/20 mcg (1,000 unit) tablet (Vitamin D3) labetalol 300 mg tablet 1 tab PO BID #60 tab 08/21/20 omeprazole 20 mg capsule,delayed 1 cap PO BID #30 cap 08/21/20 release levothyroxine 75 mcg tablet 75 mcg PO DAILY #30 tab 08/23/20 diclofenac sodium 1 % topical gel 4 g TOPICAL QID #100 g 09/17/20 (Voltaren Arthritis Pain) flash glucose scanning reader #1 ea 09/17/20 (FreeStyle Rusty 14 Day [place]) flash glucose sensor (FreeStyle #6 kit 09/17/20 Rusty 14 Day Sensor) insulin aspart U-100 100 unit/mL 5 unit SUBCUT TID 90 Days #10 09/17/20 (3 mL) subcutaneous pen (Novolog syringe Flexpen U-100 Insulin aspart) insulin glargine 100 unit/mL (3 18 unit SUBCUT QAM 90 Days #6 09/17/20 mL) subcutaneous pen (Lantus syringe Solostar U-100 Insulin) ondansetron HCl 4 mg tablet 4 mg PO DAILY PRN 90 Days #90 tab 09/17/20 pen needle, diabetic 31 gauge x #100 ea 09/26/20 3/16 (BD Ultra-Fine Mini Pen Needle) walker with seat and wheels #1 ea 09/27/20 ciprofloxacin HCl 250 mg tablet 250 mg PO BID #14 tab 10/08/20 Allergies Allergy/AdvReac Type Severity Reaction Status Date / Time No Known Allergies Allergy Verified 10/08/20 00:55 Review of Systems Review of Systems: Constitutional : No Weight loss, temperature of 100.2 degrees, complaining of fatigue ENT/Mouth : No Hearing loss, No Ear Pain, No Nasal Congestion, No Sinus Pain, No Hoarseness, No sore throat, No Rhinorrhea, No Swallowing Difficulty Eyes: No Eye Pain, No Swelling, No Redness, No Foreign Body, No Discharge, No Vision Changes Cardiovascular : No Chest Pain, No SOB, No Dyspnea on Exertion, No Orthopnea, No Edema, No Palpitations Respiratory : No Cough, No Sputum, No Wheezing, No Smoke Exposure, No Dyspnea Gastrointestinal : No Nausea, No Vomiting, No Diarrhea, No Constipation, No abdominal Pain, No Hematochezia, No Melena Genitourinary : no irregular bleeding, No Dysuria, No Urinary Frequency, No Hematuria, No Urinary Incontinence, No Urgency, No Flank Pain, No Urinary Flow Changes, No Hesitancy Musculoskeletal : No joint pain, No Myalgias, No Joint Swelling Skin : No Skin Lesions, No rash Neuro : No Weakness, No Numbness, No Paresthesias, No Loss of Consciousness, No Dizziness, No Headache Psych : No Anxiety/Panic, No Depression, No SI/HI/AH/VH, No Social Issues, Heme/Lymph: No Bruising, No Bleeding,No Lymphadenopathy Endocrine : No Polyuria, No Polydipsia, No Temperature Intolerance [facility] Past Medical History Medical History (Updated 10/08/20 @ 06:07 by Sita Maya MD) Congestive heart failure End stage renal disease GI bleed Hypercholesterolemia Hypertension Hypertensive cardiovascular disease Hypothyroid Type 2 diabetes mellitus with hyperglycemia Surgical History S/P NADEGE-BSO Family History Family History Mother Chronic kidney disease CAD (coronary artery disease) Father No problems noted. Sister Thyroid cancer Brother No problems noted. Daughter No problems noted. Daughter No problems noted. Social History Social History Household Members: Spouse Housing: Apartment Do you presently have visiting nurse or other home services: No Alcohol intake: never Patient Tobacco Use Status: Never used Tobacco e-Cigarette/Vaping Use: Never Used Second Hand Smoke Exposure: No Advance Directives: Yes Advance Directives on File: Yes Advance Directives Date on File: 08/19/20 service: No Current occupational status: disabled Physical Exam Vital Signs: Vital Signs: Last Vital Signs Temp 99.1 F 10/08/20 04:16 Pulse 87 10/08/20 05:40 Resp 15 10/08/20 05:40 BP 146/58 H 10/08/20 05:40 Pulse Ox 100 10/08/20 05:40 Body Mass Index 34.0 Const: Other: Appearance: Alert. Oriented X3. No acute distress. Seems weak Eyes: Pupils equal, round and reactive to light. ENT: Pharynx normal. Neck: Normal inspection. Neck supple. No lymph nodes noted. No crepitus CVS: Normal heart rate and rhythm. Pulses normal. Normal S1 and S2 Respiratory: No respiratory distress. Breath sounds normal. No Wheezing. No rales Abdomen: Soft and nontender. No rigidity. No distention. good BS x4 Skin: Skin warm and dry. Normal skin color. Normal skin turgor. Extremities: No lower extremity edema. No lower extremity edema. No Lacerations. No Rash. Palpable thrill over fistula on the left arm Neuro: Oriented X 3. No motor deficit. No sensory deficit. Moving all extermities. No slurred speech. Course Course Course Narrative: Patient is currently getting transfused. It is estimated that the blood transfusion will be done between 7 and 07:30. There was a repeat H&H at 08:00. 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 Patient also has a UTI, oral levofloxacin, ceftriaxone/cephalosporins, Macrobid contraindicated in end-stage renal disease. Sign-out given to Dr. Whitt Medical Decision Making Lab Data Result diagrams: 10/08/20 02:04 10/08/20 02:04 Labs: Lab Results 10/08/20 10/08/20 10/08/20 Range/Units 02:01 02:02 02:04 WBC 11.8 H (4.8-10.8) X10*3/uL RBC 2.40 L D (4.20-5.50) X10*6/uL Hgb 6.5 L* D (12.0-16.0) g/dl Hct 21.9 L D (37-47) % MCV 91.3 (80-98) fL MCH 27.1 (27.0-33.0) pg MCHC 29.7 L (31.0-35.0) g/dl RDW 16.2 H (11.0-16.0) % Plt Count 365 (160-400) X10*3/uL MPV 10.0 (9.4-12.3) fL Immature Gran % (Auto) 0.7 H (0.0-0.4) % Neut % (Auto) 81.7 H (45-73) % Lymph % (Auto) 7.7 L (20-40) % Bent % (Auto) 7.7 (2-11) % Eos % (Auto) 1.9 (0-4) % Baso % (Auto) 0.3 (0-2) % Lymph # (Auto) 0.9 L (1.2-4.9) X10*3/uL Bent # (Auto) 0.9 (0.1-1.2) X10*3/uL Eos # (Auto) 0.2 (0.0-0.4) X10*3/uL Baso # (Auto) 0.0 (0.0-0.2) X10*3/uL Abs Immat Gran (auto) 0.08 H (0.00-0.03) X10*3/uL Absolute Neuts (auto) 9.6 H (2.0-8.3) X10*3/uL Absolute Nucleated RBC 0.000 (0.0-0.012) X10*3/uL Nucleated RBC % (auto) 0.0 (0.0-0.2) /100WBC Sodium (135-145) mmol/L Potassium (3.3-5.1) mmol/L Chloride (96-108) mmol/L Carbon Dioxide (22-29) mmol/L Anion Gap (12-20) BUN (9-16) mg/dL Creatinine (0.5-1.4) mg/dL Estim Creat Clear Calc Estimated GFR Random Glucose (60-115) mg/dL Lactic Acid (0.5-2.0) mmol/L Calcium (8.4-10.2) mg/dL Total Bilirubin (0.0-1.0) mg/dL AST (5-31) U/L ALT (0-31) U/L Alkaline Phosphatase (39-117) U/L Total Protein (6.5-8.0) g/dL Albumin (3.5-5.0) g/dL Urine Color Urine Appearance Urine pH (5.0-8.0) Ur Specific [place] (1.005-1.025) Urine Protein (NEG-TRACE) MG/DL Urine Glucose (UA) (NEG) MG/DL Urine Ketones (NEG) MG/DL Urine Blood (NEG) Urine Nitrite (NEG) Ur Leukocyte Esterase (NEG) Urine RBC (0) /HPF Urine WBC (0-4) /HPF Ur Squamous Epith Cells /LPF Ur Renal Epithelial Cell /LPF Uric Acid Crystals /LPF Urine Bacteria /LPF Granular Casts /LPF Waxy Casts /LPF Urine Mucus /LPF Stool Occult Blood NEGATIVE (NEGATIVE) COVID-19 (ALFRED) Negative (Negative) COVID-19 Clin Com See Note Blood Type Antibody Screen Crossmatch 10/08/20 10/08/20 10/08/20 Range/Units 02:04 02:04 02:30 WBC (4.8-10.8) X10*3/uL RBC (4.20-5.50) X10*6/uL Hgb (12.0-16.0) g/dl Hct (37-47) % MCV (80-98) fL MCH (27.0-33.0) pg MCHC (31.0-35.0) g/dl RDW (11.0-16.0) % Plt Count (160-400) X10*3/uL MPV (9.4-12.3) fL Immature Gran % (Auto) (0.0-0.4) % Neut % (Auto) (45-73) % Lymph % (Auto) (20-40) % Bent % (Auto) (2-11) % Eos % (Auto) (0-4) % Baso % (Auto) (0-2) % Lymph # (Auto) (1.2-4.9) X10*3/uL Bent # (Auto) (0.1-1.2) X10*3/uL Eos # (Auto) (0.0-0.4) X10*3/uL Baso # (Auto) (0.0-0.2) X10*3/uL Abs Immat Gran (auto) (0.00-0.03) X10*3/uL Absolute Neuts (auto) (2.0-8.3) X10*3/uL Absolute Nucleated RBC (0.0-0.012) X10*3/uL Nucleated RBC % (auto) (0.0-0.2) /100WBC Sodium 141 (135-145) mmol/L Potassium 3.6 (3.3-5.1) mmol/L Chloride 100 (96-108) mmol/L Carbon Dioxide 28 (22-29) mmol/L Anion Gap 17 (12-20) BUN 26 H (9-16) mg/dL Creatinine 5.24 H* (0.5-1.4) mg/dL Estim Creat Clear Calc 12.5 Estimated GFR 8 Random Glucose 175 H (60-115) mg/dL Lactic Acid 0.9 (0.5-2.0) mmol/L Calcium 8.8 (8.4-10.2) mg/dL Total Bilirubin 0.5 (0.0-1.0) mg/dL AST 9 (5-31) U/L ALT 15 (0-31) U/L Alkaline Phosphatase 251 H D (39-117) U/L Total Protein 6.7 (6.5-8.0) g/dL Albumin 3.6 (3.5-5.0) g/dL Urine Color Urine Appearance Urine pH (5.0-8.0) Ur Specific [place] (1.005-1.025) Urine Protein (NEG-TRACE) MG/DL Urine Glucose (UA) (NEG) MG/DL Urine Ketones (NEG) MG/DL Urine Blood (NEG) Urine Nitrite (NEG) Ur Leukocyte Esterase (NEG) Urine RBC (0) /HPF Urine WBC (0-4) /HPF Ur Squamous Epith Cells /LPF Ur Renal Epithelial Cell /LPF Uric Acid Crystals /LPF Urine Bacteria /LPF Granular Casts /LPF Waxy Casts /LPF Urine Mucus /LPF Stool Occult Blood (NEGATIVE) COVID-19 (ALFRED) (Negative) COVID-19 Clin Com Blood Type O Negative Antibody Screen NEGATIVE Crossmatch See Detail 10/08/20 Range/Units 02:38 WBC (4.8-10.8) X10*3/uL RBC (4.20-5.50) X10*6/uL Hgb (12.0-16.0) g/dl Hct (37-47) % MCV (80-98) fL MCH (27.0-33.0) pg MCHC (31.0-35.0) g/dl RDW (11.0-16.0) % Plt Count (160-400) X10*3/uL MPV (9.4-12.3) fL Immature Gran % (Auto) (0.0-0.4) % Neut % (Auto) (45-73) % Lymph % (Auto) (20-40) % Bent % (Auto) (2-11) % Eos % (Auto) (0-4) % Baso % (Auto) (0-2) % Lymph # (Auto) (1.2-4.9) X10*3/uL Bent # (Auto) (0.1-1.2) X10*3/uL Eos # (Auto) (0.0-0.4) X10*3/uL Baso # (Auto) (0.0-0.2) X10*3/uL Abs Immat Gran (auto) (0.00-0.03) X10*3/uL Absolute Neuts (auto) (2.0-8.3) X10*3/uL Absolute Nucleated RBC (0.0-0.012) X10*3/uL Nucleated RBC % (auto) (0.0-0.2) /100WBC Sodium (135-145) mmol/L Potassium (3.3-5.1) mmol/L Chloride (96-108) mmol/L Carbon Dioxide (22-29) mmol/L Anion Gap (12-20) BUN (9-16) mg/dL Creatinine (0.5-1.4) mg/dL Estim Creat Clear Calc Estimated GFR Random Glucose (60-115) mg/dL Lactic Acid (0.5-2.0) mmol/L Calcium (8.4-10.2) mg/dL Total Bilirubin (0.0-1.0) mg/dL AST (5-31) U/L ALT (0-31) U/L Alkaline Phosphatase (39-117) U/L Total Protein (6.5-8.0) g/dL Albumin (3.5-5.0) g/dL Urine Color YELLOW Urine Appearance HAZY Urine pH 7.0 (5.0-8.0) Ur Specific [place] 1.010 (1.005-1.025) Urine Protein 3+ H (NEG-TRACE) MG/DL Urine Glucose (UA) 500 H (NEG) MG/DL Urine Ketones NEG (NEG) MG/DL Urine Blood 1+ H (NEG) Urine Nitrite NEG (NEG) Ur Leukocyte Esterase NEG (NEG) Urine RBC 1-4 (0) /HPF Urine WBC 15-29 H (0-4) /HPF Ur Squamous Epith Cells 4+ /LPF Ur Renal Epithelial Cell TRACE /LPF Uric Acid Crystals TRACE /LPF Urine Bacteria 3+ /LPF Granular Casts 1-4 /LPF Waxy Casts 1-4 /LPF Urine Mucus 3+ /LPF Stool Occult Blood (NEGATIVE) COVID-19 (ALFRED) (Negative) COVID-19 Clin Com Blood Type Antibody Screen Crossmatch Imaging Data Chest x-ray: Radiologist's impression: Lung volumes are symmetric. Small left pleural effusion appears increased from prior, with adjacent basilar opacity favoring atelectasis. Right lung is well-expanded and clear. No evidence of pneumothorax or pulmonary edema. Cardiac silhouette remains enlarged. No acute osseous findings are seen. XR/XR chest 2V IMPRESSION: Small left pleural effusion, increased from 09/16/2020, with adjacent basilar opacity favoring atelectasis. 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 Please follow-up with your primary care physician tomorrow. If you have any worsening or new symptoms, please return to the emergency room or call 911 Prescriptions: New ciprofloxacin HCl 250 mg tablet 250 mg PO BID Qty: 14 RF: 0 No Action levothyroxine 75 mcg tablet 75 mcg PO DAILY Qty: 30 RF: 2 (DME) pen needle, diabetic [BD Ultra-Fine Mini Pen Needle] 31 gauge x 3/16 needle See Rx Instructions .Route Qty: 100 RF: 0 ferrous sulfate 325 mg (65 mg iron) Tablet 325 mg PO Q OTHER DAY RF: 0 aspirin 81 mg Tablet 81 mg PO DAILY RF: 0 vitamin Q94-vdgvh acid 1,000 mcg PO DAILY RF: 0 Fiber Therapy (m-cellulose) 500 mg Tablet 500 mg PO DAILY RF: 0 Calcium 500 500 mg PO TID RF: 0 atorvastatin 20 mg tablet 1 tab PO DAILY Qty: 30 RF: 0 omeprazole 20 mg capsule,delayed release(DR/EC) 1 cap PO BID Qty: 30 RF: 0 labetalol 300 mg tablet 1 tab PO BID Qty: 60 RF: 0 cholecalciferol (vitamin D3) [Vitamin D3] 25 mcg (1,000 unit) Tablet 1,000 unit PO DAILY 30 Days Qty: 0 RF: 0 sevelamer carbonate [Renvela] 800 mg Tablet 2,400 mg PO TID RF: 0 (DME) walker with seat and wheels See Rx Instructions .Route .MEDSUPPLY Qty: 1 RF: 0 Lantus Solostar U-100 Insulin 100 unit/mL (3 mL) insulin pen 18 unit subcut QAM 90 Days Qty: 6 RF: 3 insulin aspart U-100 [Novolog Flexpen U-100 Insulin] 100 unit/mL (3 mL) insulin pen 5 unit subcut TID 90 Days Qty: 10 RF: 3 ondansetron HCl 4 mg tablet 4 mg PO DAILY PRN (Reason: nausea/vomiting) 90 Days Qty: 90 RF: 0 (DME) FreeStyle Rusty 14 Day Sensor Kit See Rx Instructions .ROUTE .MEDSUPPLY Qty: 6 RF: 3 (DME) FreeStyle Rusty 14 Day [place] Misc See Rx Instructions .ROUTE .MEDSUPPLY Qty: 1 RF: 0 diclofenac sodium [Voltaren Arthritis Pain] 1 % gel 4 g topical QID Qty: 100 RF: 2
[2020-10-08 02:10] LABS: MANUAL DIFF FLAG NO
[2020-10-08 02:11] LABS: Basophils Percent Auto 0.3 % (0-2); Eosinophils Absolute Auto 0.2 X10*3/uL (0.0-0.4); Eosinophils Percent Auto 1.9 % (0-4); Hematocrit 21.9 % (37-47); Imm Gran Abs Auto 0.08 X10*3/uL (0.00-0.03); Imm Gran Pct Auto 0.7 % (0.0-0.4); Lymphocytes Absolute Auto 0.9 X10*3/uL (1.2-4.9); Lymphocytes Percent Auto 7.7 % (20-40); Mean Corpuscular HGB Conc 29.7 g/dl (31.0-35.0); Mean Corpuscular Hemoglobin 27.1 pg (27.0-33.0); Mean Corpuscular Volume 91.3 fL (80-98); Monocytes Absolute Auto 0.9 X10*3/uL (0.1-1.2); Monocytes Percent Auto 7.7 % (2-11); Neutrophils Absolute Auto 9.6 X10*3/uL (2.0-8.3); Neutrophils Percent Auto 81.7 % (45-73); Platelet Count 365 X10*3/uL (160-400); Red Cell Distribution Width 16.2 % (11.0-16.0); White Blood Count 11.8 X10*3/uL (4.8-10.8)
[2020-10-08 02:17] LABS: Hemoglobin 6.5 g/dl (12.0-16.0)
[2020-10-08 02:30] LABS: OBS Int Ctl Valid YES; OBS1 NEGATIVE (NEGATIVE)
[2020-10-08 02:31] LABS: Lactic Acid 0.9 mmol/L (0.5-2.0)
[2020-10-08 02:36] LABS: COVID-19 Test Negative (Negative); IDNOW Serial# 9DD0AD1C
[2020-10-08 02:50] LABS: Glucose Urine UA 500 MG/DL (NEG); Leukocyte Esterase Urine NEG (NEG); Nitrite Urine NEG (NEG); UACC Culture Trigger NO; Urine Blood 1+ (NEG); Urine Ketones NEG (NEG); Urine Protein 3+ MG/DL (NEG-TRACE)
[2020-10-08 02:55] LABS: Creatinine Clr Calc Pharmacy 12.5; Estimated Glomerular Filt Rate 8
[2020-10-08 02:56] LABS: Alanine Aminotransferase 15 U/L (0-31); Albumin Level 3.6 g/dL (3.5-5.0); Alkaline Phosphatase 251 U/L (39-117); Anion Gap 17 (12-20); Aspartate Amino Transferase 9 U/L (5-31); Bilirubin Total 0.5 mg/dL (0.0-1.0); Blood Urea Nitrogen 26 mg/dL (9-16); Calcium 8.8 mg/dL (8.4-10.2); Carbon Dioxide 28 mmol/L (22-29); Chloride 100 mmol/L (96-108); Glucose Random 175 mg/dL (60-115); Potassium 3.6 mmol/L (3.3-5.1); Sodium 141 mmol/L (135-145); Total Protein 6.7 g/dL (6.5-8.0)
[2020-10-08 03:05] LABS: Appearance Urine HAZY; Color Urine YELLOW
[2020-10-08 03:27] LABS: Bacteria Urine 3+ /LPF; Mucus Urine 3+ /LPF; Renal Epithelial Cells Urine TRACE /LPF; Squamous Epithelial Cell Urine 4+ /LPF; UACC CULT YES; Uric Acid Crystals Urine TRACE /LPF
--- NOTE | 2020-10-08 06:39 | PC.NURSE ---
Pt's blood transfusion complete without incidence. Per Dr Maya, pt to have repeat H&H drawn 1 hour after transfusion completion. Oncoming RN to be made aware. This RN contacted pharmacy requesting levaquin to be brought to dept for pt.
--- NOTE | 2020-10-08 06:51 | PC.NURSE ---
Just prior to transfusion, pt O2 was 90% on RA. This RN placed pt on 1L NC and pt remained on O2 throughout transfusion. Pt O2 sat 97% on RA at this time and to remain off of supplemental O2 unless otherwise indicated.
[2020-10-08] MEDS: levoFLOXacin 250 MG TABLET PO (07:13)
--- NOTE | 2020-10-08 07:14 | PC.NURSE ---
Pt alert and oriented x3. vss, LSCTA, Pt satting 97-98% R/A. Pt denies sob/difficulty breathing. no c/o pain. Levaquin just received from pharmacy, med administered. Pt in no apparent distress, resting quietly.
[2020-10-08 08:45] LABS: Hematocrit 23.3 % (37-47)
[2020-10-08 08:51] LABS: Hemoglobin 6.9 g/dl (12.0-16.0)
[2020-10-08 12:02] LABS: Hemoglobin 7.8 g/dl (12.0-16.0)
== END 2020-10-08 14:43 | disposition home or self-care (01) ==
PROVIDERS: Emergency Medicine; Emergency Provider Emergency Medicine
DX: D64.9 Anemia, unspecified (principal); N39.0 Urinary tract infection, site not specified; Z20.822 Contact with and (suspected) exposure to COVID-19; R53.83 Other fatigue
CPT/HCPCS: 36415; 36430; 71046; 80053; 81001; 81003; 82272; 83605; 85014; 85018; 85025; 86850; 86900; 86901; 86923; 87040; 87086; 87635; 96365; 99284; 99291; P9016

== ENCOUNTER → 2020-10-09 09:21 | Outpatient (REF) | payer MEDICARE, SELFPAY | LOC: HO.NUCMED 09:21 | PROVIDERS: PCP Internal Medicine; Referring Provider Internal Medicine; Visit Provider Physician Assistant | DX: K59.00 Constipation, unspecified (principal); K27.9 Peptic ulcer, site unspecified, unspecified as acute or chronic, without hemorrhage or perforation; D12.6 Benign neoplasm of colon, unspecified; D64.9 Anemia, unspecified; N18.6 End stage renal disease; Z79.899 Other long term (current) drug therapy; Z99.2 Dependence on renal dialysis | CPT/HCPCS: 99202 ==

== ENCOUNTER → 2020-10-10 07:47 | Outpatient (REF) | payer MEDICARE, SELFPAY ==
--- NOTE | ~2020-10-10 | NM_ITS ---
Lexiscan Myocardial perfusion study Indication: Shortness of breath, preoperative evaluation, assess for coronary disease and ischemia Technique: The patient was brought in for a Lexiscan perfusion study on 10/10/2020 and was injected 0.4 mg of Lexiscan intravenously. Within a minute of this injection 35 mCi of sestamibi was given intravenously. Images were obtained using the SPECT gamma camera interlaced with the gating device. Images were obtained in supine position. Resting perfusion study was performed on 10/15/2020. Patient was administered 35 mCi of sestamibi intravenously at rest. Images were then obtained in supine position. Total DLP 153mGy-cm. Images were processed with the software and compared side to side in short axis, horizontal long axis and vertical long axis views. Findings: Raw acquisition was reviewed. The stress perfusion study showed diminished tracer uptake along the anterior wall from basal to mid portions. There is improvement with CT attenuation correction suggesting soft tissue attenuation artifact. The gated study shows low normal LV systolic function with calculated LVEF of 51%. LV cavity is normal in size. The gated study shows normal wall thickening and contraction of segments. Resting study shows no significant perfusion abnormality. Gating at rest reveals normal wall motion with ejection fraction at 55%. The findings are consistent with reversible anterior perfusion defect but improving with CT attenuation correction and hence could be from soft tissue attenuation artifact; less likely true ischemia. NM/NM lucio perf SPECT rest & str Impression: 1. Myocardial perfusion imaging study shows reversible anterior wall perfusion defect, but improving with CT attenuation correction and hence probably from soft tissue attenuation artifact. Less likely to be from ischemia. 2. Gated LVEF is 51% during stress and 55% during rest. 3. Transient ischemic dilatation not present. EKG component of the test reported separately.
--- NOTE | 2020-10-10 08:00 | CA_ITS ---
Acquisition Time: 2020-10-10 08:17:19 Total Exercise Time: 00:02:00 Test Indications: Dyspnea Medications: SEE H Protocol: LEXISCAN Max HR: 092 BPM 57% of Pred: 161 BPM Max BP: 146/074 mmHG Max Work Load: 1.0 METS Pharmacological stress test with Lexiscan injection, while sitting and moving her legs, without anginal symptoms, without arrythmia, with normotensive response to injection, with nondiagnostic EKG for ischemia. In recovery she reported lightheadedness that was treated with Aminophylline 75mg IVP to reverse Lexican with resolution of symptom. Nuclear images pending. Test reviewed with Dr Vazquez. Referred By: Alvin Monzon Overread By: DION DE
[2020-10-11 10:15] LABS: Glucose, Whole Blood 137 mg/dL (60-115)
== END ==
LOC: HO.CARD 07:47
PROVIDERS: PCP Internal Medicine; Visit Provider Internal Medicine Nephrology
DX: Z01.810 Encounter for preprocedural cardiovascular examination (principal); R06.00 Dyspnea, unspecified; E11.22 Type 2 diabetes mellitus with diabetic chronic kidney disease; N18.9 Chronic kidney disease, unspecified; I67.9 Cerebrovascular disease, unspecified
CPT/HCPCS: 78452; 82947; 93017; A9500; J0280; J2785

== ENCOUNTER 2020-10-17 08:05 | Outpatient (REF) | payer MEDICARE, SELFPAY ==
--- NOTE | ~2020-10-17 | XR_ITS ---
EXAMINATION: XR KNEE, LEFT XR KNEE, RIGHT XR KNEE AP STANDING, BILATERAL CLINICAL INFORMATION: Bilateral knee pain COMPARISON: 09/26/2020 TECHNIQUE: AP bilateral standing view of the knees and bilateral patella sunrise views were obtained. FINDINGS: Standing views of both knees demonstrate some mild narrowing of the medial joint space compartment of the right knee. Prominent vascular calcifications are present. No acute fracture is evident. [place] patella view of the left knee demonstrates some erosive change about the articular surface of the medial facet of the patella. Small patella spurs are present. Small effusion had been noted on study of 09/26/2020. The patella joint spaces are maintained. [place] patella view of the right knee demonstrates some diminished density and irregularity about the medial facet of the patella. There is minimal spurring present. Joint space appears maintained. Small effusion was noted on prior study of 09/26/2020. XR/XR knee RT 1V IMPRESSION: Mild narrowing medial joint space compartment of the right knee. Bilateral articular irregularity involving the medial facet joints of the patellae. Maintenance of joint space.
--- NOTE | ~2020-10-17 | XR_ITS ---
EXAMINATION: XR KNEE, LEFT XR KNEE, RIGHT XR KNEE AP STANDING, BILATERAL CLINICAL INFORMATION: Bilateral knee pain COMPARISON: 09/26/2020 TECHNIQUE: AP bilateral standing view of the knees and bilateral patella sunrise views were obtained. FINDINGS: Standing views of both knees demonstrate some mild narrowing of the medial joint space compartment of the right knee. Prominent vascular calcifications are present. No acute fracture is evident. [place] patella view of the left knee demonstrates some erosive change about the articular surface of the medial facet of the patella. Small patella spurs are present. Small effusion had been noted on study of 09/26/2020. The patella joint spaces are maintained. [place] patella view of the right knee demonstrates some diminished density and irregularity about the medial facet of the patella. There is minimal spurring present. Joint space appears maintained. Small effusion was noted on prior study of 09/26/2020. XR/XR knee LT 1V IMPRESSION: Mild narrowing medial joint space compartment of the right knee. Bilateral articular irregularity involving the medial facet joints of the patellae. Maintenance of joint space.
--- NOTE | ~2020-10-17 | XR_ITS ---
EXAMINATION: XR KNEE, LEFT XR KNEE, RIGHT XR KNEE AP STANDING, BILATERAL CLINICAL INFORMATION: Bilateral knee pain COMPARISON: 09/26/2020 TECHNIQUE: AP bilateral standing view of the knees and bilateral patella sunrise views were obtained. FINDINGS: Standing views of both knees demonstrate some mild narrowing of the medial joint space compartment of the right knee. Prominent vascular calcifications are present. No acute fracture is evident. [place] patella view of the left knee demonstrates some erosive change about the articular surface of the medial facet of the patella. Small patella spurs are present. Small effusion had been noted on study of 09/26/2020. The patella joint spaces are maintained. [place] patella view of the right knee demonstrates some diminished density and irregularity about the medial facet of the patella. There is minimal spurring present. Joint space appears maintained. Small effusion was noted on prior study of 09/26/2020. XR/XR knee standing BI IMPRESSION: Mild narrowing medial joint space compartment of the right knee. Bilateral articular irregularity involving the medial facet joints of the patellae. Maintenance of joint space.
== END 2020-10-17 08:06 | disposition home or self-care (01) ==
LOC: HO.HOSX 08:05
PROVIDERS: Visit Provider Physician Assistant
DX: M22.2X1 Patellofemoral disorders, right knee (principal); M22.2X2 Patellofemoral disorders, left knee; M25.561 Pain in right knee; M25.562 Pain in left knee
CPT/HCPCS: 20610; 73560; 73565; 99202; J1040

== ENCOUNTER → 2020-10-24 07:51 | Outpatient (BNVA) | payer MEDICARE, SELFPAY | PROVIDERS: PCP Internal Medicine; Visit Provider Internal Medicine Gastroenterology | DX: M22.2X1 Patellofemoral disorders, right knee (principal); M22.2X2 Patellofemoral disorders, left knee | CPT/HCPCS: 99212; J1020 ==

== ENCOUNTER 2020-11-04 15:59 | Inpatient (IN) | payer MEDICARE, SELFPAY ==
--- NOTE | ~2020-11-04 | XR_ITS ---
EXAMINATION: CHEST 2 VIEWS CLINICAL INFORMATION: SOB . COMPARISON: 10/08/2020. TECHNIQUE: PA and lateral views of the chest obtained. FINDINGS: Small left and tiny right-sided pleural effusions are seen with associated basilar atelectasis/consolidation, slightly increased when compared to the 10/08/2020 exam. No overt edema or pneumothorax. Cardiac silhouette remains prominent but unchanged. Vascular calcification in aorta. No acute bony abnormality. XR/XR chest 2V IMPRESSION: Small left and tiny right pleural effusions with associated basilar atelectasis.
--- NOTE | ~2020-11-04 | CT_ITS ---
EXAMINATION: CT CHEST WITHOUT CONTRAST CLINICAL INFORMATION: Dyspnea and fever. COMPARISON: None TECHNIQUE: Multidetector volumetric CT imaging of the chest was done. Axial MIP volume rendering provided. Sagittal and coronal reformatted images were obtained. This CT examination was performed using dose optimization techniques as appropriate, variously including the following: *Automated exposure control *Adjustment of mA and/or kV according to patient size (this includes techniques or standardized protocols for targeted exams where dose is matched to indication/reason for exam; i.e. extremities or head) *Use of iterative reconstruction technique DLP: 353 mGy-cm FINDINGS: QUALITY PROCESS ENGINEER: Moderate opacification left lower lobe. LUNGS: The lungs are well-expanded with left lower lobe consolidation with [id number] underlying left pleural effusion. Rest of lungs are well-expanded and clear. MEDIASTINUM: Bilateral thyroid lobes are symmetric and normal. The central trachea and the bronchi are widely patent. No abnormal size mediastinal or hilar lymph nodes seen. There is mild to moderate pericardial effusion. There are small shotty mediastinal lymph nodes measuring 7 mm in the para-aortic region and 1.0 cm in pretracheal space. PLEURA: There is small to moderate left and small right pleural effusion. AXILLA: No lymphadenopathy. UPPER ABDOMEN: Visualized liver, spleen, adrenal glands are unremarkable. OSSEOUS STRUCTURES: There are degenerative disc changes with vacuum disc phenomena lower dorsal spine. CT/CT chest wo con IMPRESSION: Moderate left and small right pleural effusions with underlying atelectasis. In addition there is moderate pericardial effusion. Reactionary lymph nodes in the mediastinum.
[2020-11-04 16:41] VITALS: BP 157/72; PULSE 84; RESP 18; TEMP 38.2; O2SAT 98; BMI 34.3
[2020-11-04] MEDS: Acetaminophen 325 MG TABLET 650 MG PO (16:51)
[2020-11-04 17:27] LABS: COVID-19 Test Negative (Negative)
--- NOTE | 2020-11-04 19:32 | ECG_ITS ---
Test Reason : DYSPNEA Blood Pressure : / mmHG Vent. Rate : 086 BPM Atrial Rate : 086 BPM P-R Int : 146 ms QRS Dur : 134 ms QT Int : 454 ms P-R-T Axes : 041 054 007 degrees QTc Int : 543 ms Normal sinus rhythm Possible Left atrial enlargement Right bundle branch block Abnormal ECG When compared with ECG of 19-AUG-2020 10:19, Right bundle branch block has replaced Incomplete right bundle branch block Referred By: Viviana Whitt Electronically Signed By:GREYSON SARAVIA
--- NOTE | 2020-11-04 19:33 | ED.SOB ---
HPI - SOB/Dyspnea General Chief Complaint: Dyspnea Stated Complaint: sob Time Seen by Provider: 11/04/20 19:31 Source: patient and plug stitcher Mode of arrival: ambulatory Limitations: no limitations Related Data Home Medications Medication Instructions Recorded Confirmed Calcium 500 500 mg PO TID 08/19/20 10/14/20 aspirin 81 mg tablet 81 mg PO DAILY 08/19/20 10/14/20 ferrous sulfate 325 mg (65 mg 325 mg PO Q OTHER DAY 08/19/20 10/14/20 iron) tablet methylcellulose (laxative) 500 mg 500 mg PO DAILY 08/19/20 10/14/20 tablet (Fiber Therapy (methylcellulose)) vitamin G76-bzjxt acid 1,000 mcg PO DAILY 08/19/20 10/14/20 sevelamer carbonate 800 mg tablet 2,400 mg PO TID 10/08/20 10/14/20 (Renvela) Previous Rx's Medication Instructions Recorded atorvastatin 20 mg tablet 1 tab PO DAILY #30 tab 08/21/20 cholecalciferol (vitamin D3) 25 1,000 unit PO DAILY 30 Days #0 tab 08/21/20 mcg (1,000 unit) tablet (Vitamin D3) labetalol 300 mg tablet 1 tab PO BID #60 tab 08/21/20 omeprazole 20 mg capsule,delayed 1 cap PO BID #30 cap 08/21/20 release levothyroxine 75 mcg tablet 75 mcg PO DAILY #30 tab 08/23/20 diclofenac sodium 1 % topical gel 4 g TOPICAL QID #100 g 09/17/20 (Voltaren Arthritis Pain) insulin aspart U-100 100 unit/mL 5 unit SUBCUT TID 90 Days #10 09/17/20 (3 mL) subcutaneous pen (Novolog syringe Flexpen U-100 Insulin aspart) insulin glargine 100 unit/mL (3 18 unit SUBCUT QAM 90 Days #6 09/17/20 mL) subcutaneous pen (Lantus syringe Solostar U-100 Insulin) ondansetron HCl 4 mg tablet 4 mg PO DAILY PRN 90 Days #90 tab 09/17/20 walker with seat and wheels #1 ea 09/27/20 ciprofloxacin HCl 250 mg tablet 250 mg PO BID #14 tab 10/08/20 bisacodyl 5 mg tablet,delayed 10 mg PO ONCE 1 Days #2 tab 10/11/20 release (Dulcolax (bisacodyl)) polyethylene glycol 3350 17 238 g PO ONCE 1 Days #238 g 10/11/20 gram/dose oral powder (Miralax) pen needle, diabetic 31 gauge x #100 ea 10/14/2004/30 (BD Ultra-Fine Mini Pen Needle) flash glucose scanning reader #1 ea 10/31/20 (FreeStyle Rusty 14 Day [place]) flash glucose sensor (FreeStyle #6 kit 10/31/20 Rusty 14 Day Sensor) Allergies Allergy/AdvReac Type Severity Reaction Status Date / Time No Known Allergies Allergy Verified 10/17/20 09:26 [facility] Past Medical History Medical History Congestive heart failure End stage renal disease GI bleed History of renal dialysis Hypercholesterolemia Hypertension Hypertensive cardiovascular disease Hypothyroid Type 2 diabetes mellitus with hyperglycemia Surgical History History of esophagogastroduodenoscopy (EGD) Hx of colonoscopy Hx of hysterectomy S/P NADEGE-BSO Family History Family History Mother Chronic kidney disease CAD (coronary artery disease) Father No problems noted. Sister Thyroid cancer Brother No problems noted. Daughter No problems noted. Daughter No problems noted. 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 Physical Exam Vital Signs: Vital Signs: Last Vital Signs Temp 100.7 F H 11/04/20 16:41 Pulse 84 11/04/20 16:41 Resp 18 11/04/20 16:41 BP 157/72 H 11/04/20 16:41 Pulse Ox 98 11/04/20 16:41 Body Mass Index 34.3 MDM - SOB/Dyspnea Lab Data Labs: Lab Results 11/04/20 Range/Units 16:49 COVID-19 ([facility]) Negative (Negative) COVID-19 Clin Com See Note Discharge Plan Discharge Prescriptions: No Action levothyroxine 75 mcg tablet 75 mcg PO DAILY Qty: 30 RF: 2 bisacodyl [Dulcolax (bisacodyl)] 5 mg tablet,delayed release (DR/EC) 10 mg PO ONCE 1 Days Qty: 2 RF: 0 polyethylene glycol 3350 [Miralax] 17 gram/dose powder 238 g PO ONCE 1 Days Qty: 238 RF: 0 (DME) pen needle, diabetic [BD Ultra-Fine Mini Pen Needle] 31 gauge x 3/16 needle See Rx Instructions .Route Qty: 100 RF: 11 (DME) FreeStyle Rusty 14 Day [place] Misc See Rx Instructions .ROUTE .MEDSUPPLY Qty: 1 RF: 0 (DME) FreeStyle Rusty 14 Day Sensor Kit See Rx Instructions .ROUTE .MEDSUPPLY Qty: 6 RF: 3 ferrous sulfate 325 mg (65 mg iron) Tablet 325 mg PO Q OTHER DAY RF: 0 aspirin 81 mg Tablet 81 mg PO DAILY RF: 0 vitamin K32-mbseu acid 1,000 mcg PO DAILY RF: 0 Fiber Therapy (m-cellulose) 500 mg Tablet 500 mg PO DAILY RF: 0 Calcium 500 500 mg PO TID RF: 0 atorvastatin 20 mg tablet 1 tab PO DAILY Qty: 30 RF: 0 omeprazole 20 mg capsule,delayed release(DR/EC) 1 cap PO BID Qty: 30 RF: 0 labetalol 300 mg tablet 1 tab PO BID Qty: 60 RF: 0 cholecalciferol (vitamin D3) [Vitamin D3] 25 mcg (1,000 unit) Tablet 1,000 unit PO DAILY 30 Days Qty: 0 RF: 0 sevelamer carbonate [Renvela] 800 mg Tablet 2,400 mg PO TID RF: 0 ciprofloxacin HCl 250 mg tablet 250 mg PO BID Qty: 14 RF: 0 (DME) walker with seat and wheels See Rx Instructions .Route .MEDSUPPLY Qty: 1 RF: 0 Lantus Solostar U-100 Insulin 100 unit/mL (3 mL) insulin pen 18 unit subcut QAM 90 Days Qty: 6 RF: 3 insulin aspart U-100 [Novolog Flexpen U-100 Insulin] 100 unit/mL (3 mL) insulin pen 5 unit subcut TID 90 Days Qty: 10 RF: 3 ondansetron HCl 4 mg tablet 4 mg PO DAILY PRN (Reason: nausea/vomiting) 90 Days Qty: 90 RF: 0 diclofenac sodium [Voltaren Arthritis Pain] 1 % gel 4 g topical QID Qty: 100 RF: 2
--- NOTE | 2020-11-04 20:04 | ED_ITS ---
HPI - SOB/Dyspnea General Chief Complaint: Dyspnea Stated Complaint: sob Time Seen by Provider: 11/04/20 19:31 Source: patient, family and business support professional Mode of arrival: ambulatory Limitations: no limitations History of Present Illness MD elicited complaint: shortness of breath Pertinent past history: congestive heart failure and pneumonia Onset (ago): day(s) (3) Timing: constant Severity: moderate Exacerbating factors: exertion Relieving factors: nothing Known history of: congestive heart failure Associated symptoms: fever and nausea/vomiting Treatment prior to arrival: none Related Data Home Medications Medication Instructions Recorded Confirmed Calcium 500 500 mg PO TID 08/19/20 11/04/20 aspirin 81 mg tablet 81 mg PO DAILY 08/19/20 11/04/20 ferrous sulfate 325 mg (65 mg 325 mg PO Q OTHER DAY 08/19/20 11/04/20 iron) tablet methylcellulose (laxative) 500 mg 500 mg PO DAILY 08/19/20 11/04/20 tablet (Fiber Therapy (methylcellulose)) vitamin S88-qskgd acid 1,000 mcg PO DAILY 08/19/20 11/04/20 sevelamer carbonate 800 mg tablet 800 mg PO TID 10/08/20 11/04/20 (Renvela) hydralazine 100 mg tablet 100 mg PO BID 11/04/20 11/04/20 Previous Rx's Medication Instructions Recorded atorvastatin 20 mg tablet 1 tab PO DAILY #30 tab 08/21/20 cholecalciferol (vitamin D3) 25 1,000 unit PO DAILY 30 Days #0 tab 08/21/20 mcg (1,000 unit) tablet (Vitamin D3) labetalol 300 mg tablet 1 tab PO BID #60 tab 08/21/20 omeprazole 20 mg capsule,delayed 1 cap PO BID #30 cap 08/21/20 release levothyroxine 75 mcg tablet 75 mcg PO DAILY #30 tab 08/23/20 diclofenac sodium 1 % topical gel 4 g TOPICAL QID #100 g 09/17/20 (Voltaren Arthritis Pain) insulin aspart U-100 100 unit/mL 5 unit SUBCUT TID 90 Days #10 09/17/20 (3 mL) subcutaneous pen (Novolog syringe Flexpen U-100 Insulin aspart) insulin glargine 100 unit/mL (3 18 unit SUBCUT QAM 90 Days #6 09/17/20 mL) subcutaneous pen (Lantus syringe Solostar U-100 Insulin) ondansetron HCl 4 mg tablet 4 mg PO DAILY PRN 90 Days #90 tab 09/17/20 walker with seat and wheels #1 ea 09/27/20 pen needle, diabetic 31 gauge x #100 ea 10/14/2004/30 (BD Ultra-Fine Mini Pen Needle) flash glucose scanning reader #1 ea 10/31/20 (FreeStyle Rusty 14 Day [place]) flash glucose sensor (FreeStyle #6 kit 10/31/20 Rusty 14 Day Sensor) Allergies Allergy/AdvReac Type Severity Reaction Status Date / Time No Known Allergies Allergy Verified 10/17/20 09:26 Review of Systems Review of Systems: Constitutional : pos Fever, No Chills ENT/Mouth : No sore throat, No Rhinorrhea, No Swallowing Difficulty Eyes: No Eye Pain, No Swelling, No Redness Cardiovascular : No Chest Pain, positive SOB, No Orthopnea, no Edema Respiratory : No Cough, No Sputum, No Wheezing, positive dyspnea Gastrointestinal : pos Nausea, No Vomiting, No Diarrhea, No abdominal Pain, No Hematochezia, No Melena Genitourinary : No Dysuria, No Urinary Frequency, No Hematuria Musculoskeletal : No joint pain, No Myalgias Skin : No Skin Lesions, No rash Neuro : No Weakness, No Numbness, No Dizziness, No Headache Psych : No Anxiety/Panic, No Depression Heme/Lymph: No Bruising, No Lymphadenopathy Endocrine : No Polyuria, No Polydipsia All other systems reviewed and are negative PMFSH Past Medical History Attestation statement: The following information was validated with the patient. Medical History Congestive heart failure End stage renal disease GI bleed History of renal dialysis Hypercholesterolemia Hypertension Hypertensive cardiovascular disease Hypothyroid Type 2 diabetes mellitus with hyperglycemia Surgical History History of esophagogastroduodenoscopy (EGD) Hx of colonoscopy Hx of hysterectomy S/P NADEGE-BSO Family History Family History Mother Chronic kidney disease CAD (coronary artery disease) Father No problems noted. Sister Thyroid cancer Brother No problems noted. Daughter No problems noted. Daughter No problems noted. 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 Oriented X3. No acute distress. Eyes: Pupils equal, round and reactive to light. ENT: Pharynx normal. Neck: Normal inspection. Neck supple. CVS: Normal heart rate and rhythm. Pulses normal. Respiratory: No respiratory distress. Breath sounds decreased with rales in bases Abdomen: Soft and non-tender. Skin: Skin warm and dry. Normal skin color. Normal skin turgor. Extremities: No lower extremity edema. No calf ttp Neuro: Oriented X 3. No motor deficit. No sensory deficit. Course Course Course Narrative: + WBC count, fever, LLL consolidation, will admit for further management MDM - SOB/Dyspnea MDM Narrative Medical decision making narrative: 60 yo female with ESRD on HD MWF, PUD, CHF, HLD here with a couple of days of dyspnea and feels a fever, she is vaccinated. At this time will need labs, CXR ? atelectasis with effusions will obtain labs, cultures, CT scan for pneumonia empiric cefepime ordered, dispo per results and findings. Lab Data Result diagrams: 11/04/20 20:27 11/04/20 20:56 Labs: Lab Results 11/04/20 11/04/20 11/04/20 Range/Units 16:49 20:27 20:27 WBC 13.4 H (4.8-10.8) X10*3/uL RBC 3.56 L D (4.20-5.50) X10*6/uL Hgb 9.2 L (12.0-16.0) g/dl Hct 31.3 L D (37-47) % MCV 87.9 (80-98) fL MCH 25.8 L (27.0-33.0) pg MCHC 29.4 L (31.0-35.0) g/dl RDW 18.7 H (11.0-16.0) % Plt Count 508 H D (160-400) X10*3/uL MPV 10.3 (9.4-12.3) fL Immature Gran % (Auto) 0.6 H (0.0-0.4) % Neut % (Auto) 82.1 H (45-73) % Lymph % (Auto) 8.3 L (20-40) % [place] % (Auto) 8.0 (2-11) % Eos % (Auto) 0.7 (0-4) % Baso % (Auto) 0.3 (0-2) % Lymph # (Auto) 1.1 L (1.2-4.9) X10*3/uL [place] # (Auto) 1.1 (0.1-1.2) X10*3/uL Eos # (Auto) 0.1 (0.0-0.4) X10*3/uL Baso # (Auto) 0.0 (0.0-0.2) X10*3/uL Abs Immat Gran (auto) 0.08 H (0.00-0.03) X10*3/uL Absolute Neuts (auto) 11.0 H (2.0-8.3) X10*3/uL Absolute Nucleated RBC 0.000 (0.0-0.012) X10*3/uL Nucleated RBC % (auto) 0.0 (0.0-0.2) /100WBC Sodium (135-145) mmol/L Potassium (3.3-5.1) mmol/L Chloride (96-108) mmol/L Carbon Dioxide (22-29) mmol/L Anion Gap (12-20) BUN (9-16) mg/dL Creatinine (0.5-1.4) mg/dL Estim Creat Clear Calc Estimated GFR POC Glucose (60-115) mg/dL Random Glucose (60-115) mg/dL Lactic Acid (0.5-2.0) mmol/L Calcium (8.4-10.2) mg/dL Troponin I High Sens < 3.5 (<3.5-17.0) ng/L B-Natriuretic Peptide 2122 H (<100) pg/mL Urine Color Urine Appearance Urine pH (5.0-8.0) Ur Specific [place] (1.005-1.025) Urine Protein (NEG-TRACE) MG/DL Urine Glucose (UA) (NEG) MG/DL Urine Ketones (NEG) MG/DL Urine Blood (NEG) Urine Nitrite (NEG) Ur Leukocyte Esterase (NEG) Urine RBC (0) /HPF Urine WBC (0-4) /HPF Ur Squamous Epith Cells /LPF Urine Bacteria /LPF COVID-19 ([facility]) Negative (Negative) COVID-19 Clin Com See Note 11/04/20 11/04/20 11/04/20 Range/Units 20:27 20:27 20:56 WBC (4.8-10.8) X10*3/uL RBC (4.20-5.50) X10*6/uL Hgb (12.0-16.0) g/dl Hct (37-47) % MCV (80-98) fL MCH (27.0-33.0) pg MCHC (31.0-35.0) g/dl RDW (11.0-16.0) % Plt Count (160-400) X10*3/uL MPV (9.4-12.3) fL Immature Gran % (Auto) (0.0-0.4) % Neut % (Auto) (45-73) % Lymph % (Auto) (20-40) % [place] % (Auto) (2-11) % Eos % (Auto) (0-4) % Baso % (Auto) (0-2) % Lymph # (Auto) (1.2-4.9) X10*3/uL [place] # (Auto) (0.1-1.2) X10*3/uL Eos # (Auto) (0.0-0.4) X10*3/uL Baso # (Auto) (0.0-0.2) X10*3/uL Abs Immat Gran (auto) (0.00-0.03) X10*3/uL Absolute Neuts (auto) (2.0-8.3) X10*3/uL Absolute Nucleated RBC (0.0-0.012) X10*3/uL Nucleated RBC % (auto) (0.0-0.2) /100WBC Sodium 139 (135-145) mmol/L Potassium 3.8 (3.3-5.1) mmol/L Chloride 98 (96-108) mmol/L Carbon Dioxide 27 (22-29) mmol/L Anion Gap 18 (12-20) BUN 19 H (9-16) mg/dL Creatinine 4.00 H* (0.5-1.4) mg/dL Estim Creat Clear Calc 16.5 Estimated GFR 11 POC Glucose (60-115) mg/dL Random Glucose 121 H (60-115) mg/dL Lactic Acid 1.6 (0.5-2.0) mmol/L Calcium 7.7 L D (8.4-10.2) mg/dL Troponin I High Sens (<3.5-17.0) ng/L B-Natriuretic Peptide (<100) pg/mL Urine Color YELLOW Urine Appearance CLEAR Urine pH 8.0 (5.0-8.0) Ur Specific [place] 1.015 (1.005-1.025) Urine Protein 3+ H (NEG-TRACE) MG/DL Urine Glucose (UA) 250 H (NEG) MG/DL Urine Ketones 5 (NEG) MG/DL Urine Blood 1+ H (NEG) Urine Nitrite NEG (NEG) Ur Leukocyte Esterase NEG (NEG) Urine RBC 1-4 (0) /HPF Urine WBC 1-4 (0-4) /HPF Ur Squamous Epith Cells 1+ /LPF Urine Bacteria 1+ /LPF COVID-19 ([facility]) (Negative) COVID-19 Clin Com 11/04/20 Range/Units 21:20 WBC (4.8-10.8) X10*3/uL RBC (4.20-5.50) X10*6/uL Hgb (12.0-16.0) g/dl Hct (37-47) % MCV (80-98) fL MCH (27.0-33.0) pg MCHC (31.0-35.0) g/dl RDW (11.0-16.0) % Plt Count (160-400) X10*3/uL MPV (9.4-12.3) fL Immature Gran % (Auto) (0.0-0.4) % Neut % (Auto) (45-73) % Lymph % (Auto) (20-40) % [place] % (Auto) (2-11) % Eos % (Auto) (0-4) % Baso % (Auto) (0-2) % Lymph # (Auto) (1.2-4.9) X10*3/uL [place] # (Auto) (0.1-1.2) X10*3/uL Eos # (Auto) (0.0-0.4) X10*3/uL Baso # (Auto) (0.0-0.2) X10*3/uL Abs Immat Gran (auto) (0.00-0.03) X10*3/uL Absolute Neuts (auto) (2.0-8.3) X10*3/uL Absolute Nucleated RBC (0.0-0.012) X10*3/uL Nucleated RBC % (auto) (0.0-0.2) /100WBC Sodium (135-145) mmol/L Potassium (3.3-5.1) mmol/L Chloride (96-108) mmol/L Carbon Dioxide (22-29) mmol/L Anion Gap (12-20) BUN (9-16) mg/dL Creatinine (0.5-1.4) mg/dL Estim Creat Clear Calc Estimated GFR POC Glucose 107 (60-115) mg/dL Random Glucose (60-115) mg/dL Lactic Acid (0.5-2.0) mmol/L Calcium (8.4-10.2) mg/dL Troponin I High Sens (<3.5-17.0) ng/L B-Natriuretic Peptide (<100) pg/mL Urine Color Urine Appearance Urine pH (5.0-8.0) Ur Specific [place] (1.005-1.025) Urine Protein (NEG-TRACE) MG/DL Urine Glucose (UA) (NEG) MG/DL Urine Ketones (NEG) MG/DL Urine Blood (NEG) Urine Nitrite (NEG) Ur Leukocyte Esterase (NEG) Urine RBC (0) /HPF Urine WBC (0-4) /HPF Ur Squamous Epith Cells /LPF Urine Bacteria /LPF COVID-19 ([facility]) (Negative) COVID-19 Clin Com Discharge Plan Discharge Clinical Impression: Leukocytosis, Fever, Pneumonia Patient Disposition: Admitted As Inpatient Prescriptions: No Action levothyroxine 75 mcg tablet 75 mcg PO DAILY Qty: 30 RF: 2 (DME) pen needle, diabetic [BD Ultra-Fine Mini Pen Needle] 31 gauge x 3/16 needle See Rx Instructions .Route Qty: 100 RF: 11 (DME) FreeStyle Rusty 14 Day [place] Misc See Rx Instructions .ROUTE .MEDSUPPLY Qty: 1 RF: 0 (DME) FreeStyle Rusty 14 Day Sensor Kit See Rx Instructions .ROUTE .MEDSUPPLY Qty: 6 RF: 3 ferrous sulfate 325 mg (65 mg iron) Tablet 325 mg PO Q OTHER DAY RF: 0 aspirin 81 mg Tablet 81 mg PO DAILY RF: 0 vitamin K54-qziyb acid 1,000 mcg PO DAILY RF: 0 Fiber Therapy (m-cellulose) 500 mg Tablet 500 mg PO DAILY RF: 0 Calcium 500 500 mg PO TID RF: 0 atorvastatin 20 mg tablet 1 tab PO DAILY Qty: 30 RF: 0 omeprazole 20 mg capsule,delayed release(DR/EC) 1 cap PO BID Qty: 30 RF: 0 labetalol 300 mg tablet 1 tab PO BID Qty: 60 RF: 0 cholecalciferol (vitamin D3) [Vitamin D3] 25 mcg (1,000 unit) Tablet 1,000 unit PO DAILY 30 Days Qty: 0 RF: 0 sevelamer carbonate [Renvela] 800 mg Tablet 800 mg PO TID RF: 0 hydralazine 100 mg tablet 100 mg PO BID RF: 0 (DME) walker with seat and wheels See Rx Instructions .Route .MEDSUPPLY Qty: 1 RF: 0 Lantus Solostar U-100 Insulin 100 unit/mL (3 mL) insulin pen 18 unit subcut QAM 90 Days Qty: 6 RF: 3 insulin aspart U-100 [Novolog Flexpen U-100 Insulin] 100 unit/mL (3 mL) insulin pen 5 unit subcut TID 90 Days Qty: 10 RF: 3 ondansetron HCl 4 mg tablet 4 mg PO DAILY PRN (Reason: nausea/vomiting) 90 Days Qty: 90 RF: 0 diclofenac sodium [Voltaren Arthritis Pain] 1 % gel 4 g topical QID Qty: 100 RF: 2
--- NOTE | 2020-11-04 20:23 | PHA.MEDREC ---
Pharmacy Consult ? Medication Reconciliation Pharmacy has completed the medication reconciliation.
[2020-11-04 20:35] LABS: MANUAL DIFF FLAG NO
[2020-11-04 20:36] LABS: Basophils Percent Auto 0.3 % (0-2); Eosinophils Absolute Auto 0.1 X10*3/uL (0.0-0.4); Eosinophils Percent Auto 0.7 % (0-4); Hematocrit 31.3 % (37-47); Hemoglobin 9.2 g/dl (12.0-16.0); Imm Gran Abs Auto 0.08 X10*3/uL (0.00-0.03); Imm Gran Pct Auto 0.6 % (0.0-0.4); Lymphocytes Absolute Auto 1.1 X10*3/uL (1.2-4.9); Lymphocytes Percent Auto 8.3 % (20-40); Mean Corpuscular HGB Conc 29.4 g/dl (31.0-35.0); Mean Corpuscular Hemoglobin 25.8 pg (27.0-33.0); Mean Corpuscular Volume 87.9 fL (80-98); Mean Platelet Volume 10.3 fL (9.4-12.3); Monocytes Absolute Auto 1.1 X10*3/uL (0.1-1.2); Neutrophils Percent Auto 82.1 % (45-73); Platelet Count 508 X10*3/uL (160-400); Red Blood Count 3.56 X10*6/uL (4.20-5.50); Red Cell Distribution Width 18.7 % (11.0-16.0); White Blood Count 13.4 X10*3/uL (4.8-10.8)
[2020-11-04 20:39] LABS: Appearance Urine CLEAR; Color Urine YELLOW; Glucose Urine UA 250 MG/DL (NEG); Leukocyte Esterase Urine NEG (NEG); Nitrite Urine NEG (NEG); Specific Gravity - Urine 1.015 (1.005-1.025); UACC Culture Trigger NO; Urine Blood 1+ (NEG); Urine Ketones 5 MG/DL (NEG); Urine Protein 3+ MG/DL (NEG-TRACE)
[2020-11-04 20:51] LABS: Lactic Acid 1.6 mmol/L (0.5-2.0)
[2020-11-04 20:52] LABS: Bacteria Urine 1+ /LPF; Squamous Epithelial Cell Urine 1+ /LPF
[2020-11-04] MEDS: cefEPime HCl 2 GM in 0.9 % Sodium Chloride 50 ML IV (20:58)
[2020-11-04 21:01] LABS: B Type Natriuretic Peptide 2122 pg/mL (<100); Troponin-I High Sensitivity < 3.5 ng/L (<3.5-17.0)
[2020-11-04] MEDS: Albuterol Sulfate (0.083%) 2.5 MG/3 ML VIAL.NEB INHALE (21:04)
[2020-11-04 21:09] VITALS: PULSE 84; O2SAT 96
[2020-11-04 21:20] LABS: Anion Gap 18 (12-20); Blood Urea Nitrogen 19 mg/dL (9-16); Calcium 7.7 mg/dL (8.4-10.2); Carbon Dioxide 27 mmol/L (22-29); Chloride 98 mmol/L (96-108); Creatinine Clr Calc Pharmacy 16.5; Estimated Glomerular Filt Rate 11; Glucose Random 121 mg/dL (60-115); Potassium 3.8 mmol/L (3.3-5.1); Sodium 139 mmol/L (135-145)
[2020-11-04 21:21] VITALS: TEMP 36.9
[2020-11-04 21:22] VITALS: PULSE 86; TEMP 36.9; O2SAT 96
[2020-11-04 21:24] LABS: Glucose, Whole Blood 107 mg/dL (60-115)
[2020-11-04 22:05] VITALS: BP 152/70; PULSE 85; O2SAT 96
[2020-11-04] MEDS: vancomycin HCL 1,000 MG in 0.9 % Sodium Chloride 250 ML 270 MG IV (22:54)
--- NOTE | 2020-11-04 23:19 | PM.IMHP ---
History of Present Illness Date of Service: 11/04/20 Chief Complaint: SOB [place] Islander-speaking, information obtained with the help of clubhouse attendant 60-year-old [place] Islander-speaking only with past medical history of end-stage renal disease on dialysis Wednesday and , diabetes, hypertension, hypothyroidism who presents to the hospital with complaints of shortness of breath for 2 weeks. Patient reports that her symptoms started 2 weeks ago, that has been worsened over the past few days, she denies any cough, denies any phlegm, she has chills and some subjective fevers, no nausea vomiting, no chest pain, no palpitations, she feels like burning in her chest mostly with coughing, denies any abdominal pain, no diarrhea constipation, no urinary symptoms and no lower extremity edema. She denies any dizziness, no headache, no numbness tingling or weakness. Patient denies missing any of her dialysis session and reports that she had dialysis earlier prior to coming to the hospital. On arrival to the ED patient home vitals significant for temp of 98.4?, heart rate of 85, respiratory rate of 18, blood pressure 152/70, satting 96% on room air For WBC count 13.4, hemoglobin of 9.2 which is significantly higher than her baseline, BUN of 19, creatinine of 4, glucose of 137, calcium 7.7, BNP of 2122, troponin less than 3.5, UA positive for protein, glucose, and blood, COVID-19 negative Left lower lobe consolidation with small to moderate underlying left and right pleural effusion. Moderate pericardial few Patient will be admitted for further management Review of Systems Review of Systems: Yes all other systems are reviewed and are negative [facility] Medical History Congestive heart failure End stage renal disease GI bleed History of renal dialysis Hypercholesterolemia Hypertension Hypertensive cardiovascular disease Hypothyroid Type 2 diabetes mellitus with hyperglycemia Family History Mother Chronic kidney disease CAD (coronary artery disease) Father No problems noted. Sister Thyroid cancer Brother No problems noted. Daughter No problems noted. Daughter No problems noted. Pertinent family history: ESRD in mother Surgical History History of esophagogastroduodenoscopy (EGD) Hx of colonoscopy Hx of hysterectomy S/P NADEGE-BSO Social History Household Members: Spouse Housing: House Do you presently have visiting nurse or other home services: No Alcohol intake: never Patient Tobacco Use Status: Never used Tobacco e-Cigarette/Vaping Use: Never Used Second Hand Smoke Exposure: No Use of substances other than those prescribed or required for medical reasons: No Have you been hit, kicked, punched, or otherwise hurt by someone within the past year? If so, by whom?: No Do you feel safe in your current relationship?: Yes Is there a partner from a previous relationship who is making you feel unsafe now?: No Are you made to feel afraid or neglected: No Advance Directives: Yes Advance Directives on File: Yes Advance Directives Date on File: 08/19/20 Do you have thoughts of harming others: None Do you have a plan to hurt others: No Plan Recently lost weight without trying: Yes How much weight loss: 2-13 pounds Eating poorly because of decreased appetite: No Nutrition screen score: 3 Nutrition Risks: No Nutritional Risk Patient : No : No Poor oral hygiene: No service: No Current occupational status: disabled 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 Meds Allergies Allergy/AdvReac Type Severity Reaction Status Date / Time No Known Allergies Allergy Verified 10/17/20 09:26 Active Medications: Current Medications Vancomycin HCl 1,000 mg/ (Sodium Chloride) 270 mls @ 270 mls/hr IV ONCE ONE Stop: 11/04/20 23:42 Last Admin: 11/04/20 22:54 Dose: 270 mls/hr Documented by: Pharmacy Consult (Consult Rx Perform Med Rec) 1 each MISCELLANE ONCE PRN PRN Reason: Consult order Pharmacy Consult (Consult Rx Vancomycin Dosing) 1 each MISCELLANE DAILY PRN PRN Reason: Consult order Home Medications Medication Instructions Recorded Confirmed Last Taken Type atorvastatin 20 mg tablet 20 mg PO DAILY 11/04/20 11/04/20 Unknown History bisacodyl 5 mg tablet,delayed 5 mg PO BID 11/04/20 Unknown History release hydralazine 100 mg tablet 100 mg PO 11/04/20 Unknown History insulin aspart U-100 100 unit/mL 5 unit SUBCUT TID 11/04/20 11/05/20 Unknown History (3 mL) subcutaneous pen (Novolog Flexpen U-100 Insulin aspart) insulin glargine 100 unit/mL (3 18 unit SUBCUT QAM 11/04/20 11/05/20 Unknown History mL) subcutaneous pen (Lantus Solostar U-100 Insulin) labetalol 300 mg tablet 300 mg PO BID 11/04/20 11/05/20 Unknown History levothyroxine 75 mcg tablet 75 mcg PO DAILY 11/04/20 11/05/20 Unknown History omeprazole 20 mg capsule,delayed 20 mg PO DAILY 11/04/20 11/05/20 Unknown History release ondansetron HCl 4 mg tablet 4 mg PO DAILY PRN 11/04/20 11/05/20 Unknown History prednisolone acetate 1 % eye 1 drp TID 11/04/20 11/05/20 Unknown History drops,suspension sevelamer carbonate 800 mg tablet 800 mg PO DAILY 11/04/20 11/05/20 Unknown History Physical Exam Vital Signs and Narrative: Vital Signs: Last Vital Signs Temp 98.4 F 11/04/20 21:22 Pulse 85 11/04/20 22:05 Resp 18 11/04/20 16:41 BP 152/70 H 11/04/20 22:05 Pulse Ox 96 11/04/20 22:05 Body Mass Index 34.3 Const: Other: Ill-appearing General: cooperative and no acute distress Orientation/consciousness: patient oriented x3 Eyes: General: appearance normal, both eyes and all related structures Pupils: Equal, round and reactive pupils present Resp: Effort & Inspection: normal respiratory effort Auscultation: clear to auscultation bilaterally Cardio: Rate: regular rate Rhythm: regular rhythm GI: Palpation (GI): Soft to palpation Auscultation: normal bowel sounds Skin: General skin exam: no rashes or lesions noted Neuro: General: patient oriented x3 Cranial nerves: Yes Equal, round and reactive pupils present Cognition (Neuro): normal cognition Extrem: General: Yes normal to inspection and Yes no pedal edema Results Labs CBC and Chem 7: 11/04/20 20:27 11/04/20 20:56 Labs: Laboratory Results - last 24 hr 11/04/20 11/04/20 11/04/20 16:49 20:27 20:27 MCV 87.9 MCH 25.8 L MCHC 29.4 L RDW 18.7 H Plt Count 508 H D MPV 10.3 Immature Gran % (Auto) 0.6 H Neut % (Auto) 82.1 H Lymph % (Auto) 8.3 L [place] % (Auto) 8.0 Eos % (Auto) 0.7 Baso % (Auto) 0.3 Lymph # (Auto) 1.1 L [place] # (Auto) 1.1 Eos # (Auto) 0.1 Baso # (Auto) 0.0 Abs Immat Gran (auto) 0.08 H Absolute Neuts (auto) 11.0 H Absolute Nucleated RBC 0.000 Nucleated RBC % (auto) 0.0 Anion Gap Estim Creat Clear Calc Estimated GFR POC Glucose Random Glucose Lactic Acid Calcium Troponin I High Sens < 3.5 B-Natriuretic Peptide 2122 H Urine Color Urine Appearance Urine pH Ur Specific [place] Urine Protein Urine Glucose (UA) Urine Ketones Urine Blood Urine Nitrite Ur Leukocyte Esterase Urine RBC Urine WBC Ur Squamous Epith Cells Urine Bacteria COVID-19 ([facility]) Negative COVID-19 Clin Com See Note 11/04/20 11/04/20 11/04/20 20:27 20:27 20:56 MCV MCH MCHC RDW Plt Count MPV Immature Gran % (Auto) Neut % (Auto) Lymph % (Auto) [place] % (Auto) Eos % (Auto) Baso % (Auto) Lymph # (Auto) [place] # (Auto) Eos # (Auto) Baso # (Auto) Abs Immat Gran (auto) Absolute Neuts (auto) Absolute Nucleated RBC Nucleated RBC % (auto) Anion Gap 18 Estim Creat Clear Calc 16.5 Estimated GFR 11 POC Glucose Random Glucose 121 H Lactic Acid 1.6 Calcium 7.7 L D Troponin I High Sens B-Natriuretic Peptide Urine Color YELLOW Urine Appearance CLEAR Urine pH 8.0 Ur Specific [place] 1.015 Urine Protein 3+ H Urine Glucose (UA) 250 H Urine Ketones 5 Urine Blood 1+ H Urine Nitrite NEG Ur Leukocyte Esterase NEG Urine RBC 1-4 Urine WBC 1-4 Ur Squamous Epith Cells 1+ Urine Bacteria 1+ COVID-19 ([facility]) COVID-19 Clin Com 11/04/20 21:20 MCV MCH MCHC RDW Plt Count MPV Immature Gran % (Auto) Neut % (Auto) Lymph % (Auto) [place] % (Auto) Eos % (Auto) Baso % (Auto) Lymph # (Auto) [place] # (Auto) Eos # (Auto) Baso # (Auto) Abs Immat Gran (auto) Absolute Neuts (auto) Absolute Nucleated RBC Nucleated RBC % (auto) Anion Gap Estim Creat Clear Calc Estimated GFR POC Glucose 107 Random Glucose Lactic Acid Calcium Troponin I High Sens B-Natriuretic Peptide Urine Color Urine Appearance Urine pH Ur Specific [place] Urine Protein Urine Glucose (UA) Urine Ketones Urine Blood Urine Nitrite Ur Leukocyte Esterase Urine RBC Urine WBC Ur Squamous Epith Cells Urine Bacteria COVID-19 ([facility]) COVID-19 Clin Com Imaging Radiologist's Impressions: Impressions Chest X-Ray 11/04/20 17:03 IMPRESSION: Small left and tiny right pleural effusions with associated basilar atelectasis. Chest CT 11/04/20 19:31 IMPRESSION: Moderate left and small right pleural effusions with underlying atelectasis. In addition there is moderate pericardial effusion. Reactionary lymph nodes in the mediastinum. Assessment and Plan (1) Pneumonia: Qualifiers: Laterality: left Lung location: lower lobe of lung Pneumonia type: due to unspecified organism Qualified Code(s): J18.9 - Pneumonia, unspecified organism Status: Acute (2) CHF exacerbation: Status: Acute (3) ESRD on dialysis: Status: Acute (4) Pericardial effusion: Status: Acute 60-year-old female with past medical history of ESRD on dialysis, diabetes and hypertension presents to the hospital with complaints of shortness of breath found to have pneumonia as well as volume overload secondary to CHF exacerbation # community-acquired pneumonia - patient has consolidation on CT chest - no cough or sputum production - has leukocytosis, afebrile - will treat her with IV antibiotic - follow culture - will rule out RSV and influenza # CHF exacerbation - has elevated BNP, and pleural effusion on chest CT - no evidence or history of CHF documented in EMR - patient not on any diuretics at home although reports that she still produces urine - had dialysis prior to coming to the hospital today - at this time will start her on laced 40 IV daily - the will add echocardiogram and consult Cardiology - low-sodium diet, daily weight, strict diet # pericardial effusion - possibly secondary to her history of ESRD - stable - will consult cardia - echo cardiac # ESRD on dialysis - Wednesday and Wednesday - complain - will consult Nephrology for dialysis while inpatient # HTN - stable - continue home medication # diarrhea - continue home and insulin - add low-dose sliding scale insulin -add diabetic diet # hypothyroidism - continue home levothyroxine DVT prophylaxis: Heparin subQ Quality Stroke Does the patient have a stroke diagnosis?: No VTE Prior VTE?: No VTE Risk Level:: Medical - moderate - high VTE Device Contraindication: Treatment Not Indicated VTE Drug Contraindication: N/A - Med Ordered
[2020-11-05] VITALS (11 sets, daily range): BP systolic 113–187; BP diastolic 59–83; PULSE 80–96; RESP 16–20; TEMP 36.4–37; O2SAT 94–97
--- NOTE | 2020-11-05 00:01 | PC.NURSE ---
Med Rec completed from APR. Pt unable to produce list for this RN. Family unsure of medications.
--- NOTE | 2020-11-05 00:56 | CA_ITS ---
Transthoracic Echocardiogram Patient (Last, First, Middle): Joseph Olmstead, Gender: Female Date of : 1960 Age: 60 Procedure Date: 11/05/2020 Procedure Type: Transthoracic Echocardiogram Location: [facility] [place] Height: 162.56 cm Weight: 90.72 kg BSA: 1.96 m2 Heart Rate: bpm BP: 181 / 81 mmHg Stone Rougher: Referring MD: Yuri Espinosa MD Spice Mixer: Sharad Vazquez MD Symptoms: CHF Study Quality: Fair ECG Rhythm: Sinus Conclusions: - 1. Normal LV systolic function with moderate LVH with pseudonormal filling pattern 2. Moderately dilated left atrium 3. Moderate aortic stenosis, paradoxical low-flow 4. Severe mitral annular calcification 5. Normal RV systolic pressure 6. Small pericardial effusion Findings Left Ventricle Normal left ventricular size and systolic function. There is moderately increased left ventricular wall thickness. The visually estimated ejection fraction is between 60-65%. Spectral Doppler is indicative of a pseudonormal filling pattern. Right Ventricle Normal right ventricular cavity size and systolic function. Atria The left atrium is moderately dilated. There is lipomatous hypertrophy of the interatrial septum. Interatrial shunt cannot be excluded. The right atrium is likely dilated. Aortic Valve There is moderate calcification of the aortic valve. There is moderate thickening of the aortic valve. There is moderate aortic valve stenosis. The peak aortic gradient is 32 mmHg.The mean gradient is 16 mmHg. The aortic valve area is 1.27 cm2. There is mild aortic valve regurgitation. Mitral Valve There is moderate anterior and severe posterior mitral leaflet thickening. There is severe mitral annular calcification. There is trace mitral valve regurgitation. There is no mitral valve stenosis. Pulmonic Valve The pulmonic valve was not well visualized. Tricuspid Valve Likely normal tricuspid valve structure and function. There is mild tricuspid valve regurgitation. The right ventricular systolic pressure is normal. The right ventricular systolic pressure is 15 mmHg. Normal right atrial pressure. There is no evidence of pulmonary hypertension. Great Vessels All visible segments of the aorta are normal in size. The pulmonary artery was not well visualized. Venous The inferior vena cava is normal in size. Pericardium/Pleural There is a small circumferential pericardial effusion. There are no definitive echocardiographic findings of tamponade physiology. Prior Study Comparison No prior study available for comparison. Measurements 2D Linear Measurements IVSd: 1.46 0.6-0.9/0.6-1.0 cm LVIDd: 4.30 3.9-5.3/4.2-5.9 cm LVIDd Index: 2.19 2.4-3.2/2.2-3.1 cm/m2 LVIDs: 2.85 2.0-3.6 cm LVPWd: 1.47 0.7-1.1 cm Ao Root: 3.10 2.1-3.5 cm LA Diam: 4.70 2.7-3.8/3.0-4.0 cm LAIDs Index: 2.40 1.5-2.3 cm/m2 LV Mass: 310.36 67-162/88-224 g LV Mass Index: 158.35 43-95/49-115 g/m2 LVOT Diam: 2.00 3.0+(-)1.3 cm Mitral Valve MV Pk E: 1.66 MV PK A: 1.72 MV Decel Time: 235.00 E/A: 1.00 E'Lateral: 7.94 E'Medial: 8.70 E/E' Med: 19.10 E/E' Lat: 20.90 PHT: 69.00 MVA PHT: 3.19 Decel [place]: 7.08 Aortic Valve AoV Pk Elías: 2.81 AoV Mn Elías: 1.81 AoV VTI: 0.56 AoV Pk Grad: 32.00 Aov Mn Grad: 16.00 SHAR Cont.VTI: 1.27 LVOT LVOT Pk Elías: 1.10 LVOT Mn Elías: 0.78 LVOT VTI: 0.23 LVOT Pk Grad: 5.00 LVOT Mn Grad: 3.00 LVOT Diam: 2.00 LVOT Area: 3.14 Diastolic Function MV Pk E: 1.66 MV Pk A: 1.72 E/A: 1.00 E'Medial: 8.70 E/E' Med: 19.10 E' Laterial: 7.94 E/E' Lat: 20.90 Tricuspid Valve TR Pk Elías: 1.74 TR Pk Grad: 12.00 RA Press: 3.00 RVSP: 15.00 Great Vessels Aorta Ao Root-2D: 3.10 2.0-3.7 cm Ao Asc: 3.10 2.1-3.4 cm Ao Arch: 3.80 Updated in Other Vendor System with Status of Final Sharad Vazquez MD electronically signed on 11/05/2020 12:18:54 PM with status of Final
--- NOTE | 2020-11-05 01:18 | PC.NURSE ---
Report given to [facility] [place]. Plan to transfer to floor.
[2020-11-05] MEDS: cefTRIAXone sodium 1 GM in 0.9 % Sodium Chloride 50 ML IV ×2 (03:27→21:11)
[2020-11-05] MEDS: Furosemide 40 MG/4 ML VIAL IVPUSH ×2 (03:27→10:35)
[2020-11-05] MEDS: 0.9 % Sodium Chloride Flush 3 ML SYRINGE IVFLUSH ×4 (03:27→23:46)
[2020-11-05] MEDS: Azithromycin 500 MG in 0.9 % Sodium Chloride 250 ML 125 MG IV ×2 (04:15→21:56)
[2020-11-05 06:10] LABS: MANUAL DIFF FLAG NO
[2020-11-05 06:26] LABS: Basophils Percent Auto 0.3 % (0-2); Eosinophils Absolute Auto 0.1 X10*3/uL (0.0-0.4); Eosinophils Percent Auto 0.7 % (0-4); Hematocrit 27.9 % (37-47); Hemoglobin 8.1 g/dl (12.0-16.0); Imm Gran Abs Auto 0.09 X10*3/uL (0.00-0.03); Imm Gran Pct Auto 0.8 % (0.0-0.4); Mean Corpuscular Hemoglobin 25.4 pg (27.0-33.0); Mean Corpuscular Volume 87.5 fL (80-98); Mean Platelet Volume 10.4 fL (9.4-12.3); Neutrophils Absolute Auto 8.8 X10*3/uL (2.0-8.3); Neutrophils Percent Auto 80.2 % (45-73); Platelet Count 462 X10*3/uL (160-400); Red Blood Count 3.19 X10*6/uL (4.20-5.50); Red Cell Distribution Width 18.7 % (11.0-16.0); White Blood Count 10.9 X10*3/uL (4.8-10.8)
[2020-11-05 06:42] LABS: Anion Gap 16 (12-20); Blood Urea Nitrogen 25 mg/dL (9-16); Calcium 7.4 mg/dL (8.4-10.2); Carbon Dioxide 28 mmol/L (22-29); Chloride 100 mmol/L (96-108); Glucose Random 127 mg/dL (60-115); Potassium 3.8 mmol/L (3.3-5.1); Sodium 140 mmol/L (135-145)
[2020-11-05 06:43] LABS: Creatinine Clr Calc Pharmacy 14.5; Estimated Glomerular Filt Rate 10
[2020-11-05 07:05] LABS: Influenza A PCR NEGATIVE (Negative); Influenza B PCR NEGATIVE (Negative); Resp Syncy Virus RNA Qual PCR NEGATIVE (Negative); SARS COV2 PCR INHOUSE NEGATIVE (Negative)
[2020-11-05 07:38] LABS: Glucose, Whole Blood 116 mg/dL (60-115)
--- NOTE | 2020-11-05 08:57 | P.CDIC_ITS ---
CDI Concurrent Query Documentation Clarification: PHYSICIAN'S DOCUMENTATION REQUEST Date of Query: 11/05/20 0858 Patient Name: Joseph Olmstead Admit Date: 11/04/20 Dear Doctor, A review of the medical record indicates additional documentation may be needed. Please review below and update the documentation accordingly. Clinical Indicators: Risk Factors/Clinical Indicators/Treatments T 100.7 WBC 13.4 H&P: Pneumonia, CHF, ESRD on hemodialysis, Pericardial Effusion Treat with IV antibiotic Please clarify which, if any, of the following is the most likely etiology of the above symptoms and treatment rendered: * Sepsis * Systemic manifestations of infection, with 2 or more SIRS criteria which include: - Fever > 100.4F or hypothermia < 96.8 F - Leukocytosis - WBC > 12,000 or leukopenia, WBC < 4,000 or > 10% bands - Tachycardia > 90 beats/minute - Tachypnea - RR > 20 breaths/minute or PaCO2 < 32mmHg (Source: Merck Manual 2013) * Indicate the known or suspected organism * Indicate the known or suspected underlying infection, such as UTI, pneumonia, or cellulitis * Indicate if a suspected bacterial infection of unknown source * Indicate if associated with an implanted device such as a F/C, PICC line, orthopedic hardware, etc. * Localized infection only, without systemic illness - indicate the site/source, such as UTI, pneumonia, etc. * Other (please specify) * Unable to determine Use of terms such as suspected, likely, concern for, or probable (associated with a specific diagnosis that is being evaluated, monitored, or treated as if it exists) are acceptable and can be coded in the inpatient setting, when documented at the time of discharge. Thank you, Ketty Delarosa , MELODY Extension: [phone] Please use your independent medical judgment in providing your response. THIS QUERY IS PART OF THE PERMANENT MEDICAL RECORD Provider Response: Other Other Diagnosis: suspected sepsis
[2020-11-05] MEDS: Ferrous Sulfate 324 MG TABLET.DR PO (10:33)
[2020-11-05] MEDS: Omeprazole 20 MG CAPSULE.DR PO ×2 (10:33→21:11)
[2020-11-05] MEDS: Aspirin 81 MG TAB.CHEW PO (10:33)
[2020-11-05] MEDS: Labetalol HCL 100 MG TABLET 300 MG PO ×2 (10:33→21:11)
[2020-11-05] MEDS: Atorvastatin Calcium 20 MG TABLET PO (10:33)
[2020-11-05] MEDS: Cholecalciferol (Vitamin D3) 25 MCG TABLET PO (10:34)
[2020-11-05] MEDS: Sevelamer Carbonate Tablet 800 MG TABLET PO ×3 (10:34→17:23)
[2020-11-05] MEDS: Cyanocobalamin (Vitamin B-12) 1,000 MCG TABLET 1000 MCG PO (10:34)
[2020-11-05] MEDS: hydrALAZINE HCl 50 MG TABLET 100 MG PO ×2 (10:34→21:12)
[2020-11-05] MEDS: Insulin Glargine,Hum.rec.anlog 100 UNIT/ML 10 ML VIAL 18 UNIT SUBCUT (10:35)
--- NOTE | 2020-11-05 10:45 | PM.CNCAR ---
History of Present Illness History of Present Illness Date of Service: 11/05/20 Requesting physician: Yuri Espinosa Consult reason: congestive heart failure Chief complaint: CHF, CAP, pericardial effusion Narrative: I was consulted on this patient for evaluation of congestive heart failure and exertional shortness of breath. Shows also noted to have pericardial effusion on CT scan. History was obtained with help of white sourer. Patient is good historian. She is on end-stage renal dialysis for about 2 years, suspected to be due to diabetes, longstanding diabetes, hypertension which as per her is not very well control as outpatient, admitted in August this year with pulmonary edema related to hypertensive crisis. No cardiology consult at that time was performed. Patient also did not have any echocardiogram at that time. Had a myocardial perfusion imaging post discharge, which suggested reversible anterior perfusion defect but was suspected to be due to attenuation artifact. Patient has no prior history of coronary artery disease and does not recall having told that she had congestive heart failure in the past. She says 4 x 2 week she started noticing increasing shortness of breath which is gradual in onset. She initially start that this might be related to not adequate fluid being taken of her dialysis. However her dry weight as per has been maintained at 91.4 kg. Her blood pressure is not been always well controlled. She then continued to have progressive shortness of breath. Gets shortness of breath also when she was changing position bed but no clear orthopnea PND. She has not developed any leg edema or abdominal distension. Yesterday during dialysis session she got chills and subsequently had fever and post dialysis despite fluid removed, she remained short of breath and therefore decided to come to the Emergency put in the emergency room she was noted to have a left lower lobe consolidation with moderate left-sided pleural effusion moderate pericardial effusion with possible congestion. Her BNP was significantly elevated at 2122 similar to her BNP on admission in August. She underwent echocardiogram this morning, results are pending. She says her breathing is somewhat better but still short of breath with exertion. No palpitations, lightheadedness, syncope. No exertional chest pain. Review of Systems Constitutional: Constitutional: Denies body ache(s), Reports chills, Reports fatigue, Reports fever(s) and Reports snoring Eyes: Eyes: Reports no additional eye complaints ENT: Reports system reviewed and no additional complaints, except as documented Cardiovascular: Cardiovascular: Denies chest pain, Denies leg edema, Denies lightheadedness, Denies Loss of Consciousness, Denies palpitations and Reports dyspnea on exertion Respiratory: Respiratory: Reports chest congestion, Reports dyspnea on exertion and Reports snoring Gastrointestinal: Gastrointestinal: Reports no additional gastrointestinal complaints Genitourinary: Genitourinary: Reports no additional female genitourinary complaints Musculoskeletal: Musculoskeletal: Reports no additional musculoskeletal complaints Integumentary/Breasts: Skin/Breast: Reports system reviewed and no additional complaints, except as docu Neurologic: Reports system reviewed and no additional complaints, except as documented Psychiatric: Psychiatric: Reports no additional psychiatric complaints Endocrine: Endocrine: Reports no additional endocrine complaints, Reports fatigue and Denies palpitations Hematologic/Lymphatic: Hematologic/Lymphatic: Reports no additional hematologic/lymphatic complaints FOR[facility]LY [facility] Past Medical History Medical History Congestive heart failure End stage renal disease GI bleed History of renal dialysis Hypercholesterolemia Hypertension Hypertensive cardiovascular disease Hypothyroid Type 2 diabetes mellitus with hyperglycemia Family History Family History Mother Chronic kidney disease CAD (coronary artery disease) Father No problems noted. Sister Thyroid cancer Brother No problems noted. Daughter No problems noted. Daughter No problems noted. Surgical History Surgical History History of esophagogastroduodenoscopy (EGD) Hx of colonoscopy Hx of hysterectomy S/P NADEGE-BSO Social History Social History Household Members: Spouse Housing: House Do you presently have visiting nurse or other home services: No Alcohol intake: never Patient Tobacco Use Status: Never used Tobacco e-Cigarette/Vaping Use: Never Used Second Hand Smoke Exposure: No Use of substances other than those prescribed or required for medical reasons: No Have you been hit, kicked, punched, or otherwise hurt by someone within the past year? If so, by whom?: No Do you feel safe in your current relationship?: Yes Is there a partner from a previous relationship who is making you feel unsafe now?: No Are you made to feel afraid or neglected: No Advance Directives: Yes Advance Directives on File: Yes Advance Directives Date on File: 08/19/20 Do you have thoughts of harming others: None Do you have a plan to hurt others: No Plan Recently lost weight without trying: Yes How much weight loss: 2-13 pounds Eating poorly because of decreased appetite: No Nutrition screen score: 3 Nutrition Risks: No Nutritional Risk Patient : No : No Poor oral hygiene: No service: No Current occupational status: disabled 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 Meds Allergies Allergy/AdvReac Type Severity Reaction Status Date / Time No Known Allergies Allergy Verified 10/17/20 09:26 Active Medications: Current Medications Acetaminophen (Acetaminophen 325 Mg Tablet) 650 mg PO Q6H PRN PRN Reason: Pain, Mild (Pain Scale 1-3) Aspirin (Aspirin 81 Mg Tab.Chew) 81 mg PO DAILY COUNT INCLUDES THE [facility] Last Admin: 11/05/20 10:33 Dose: 81 mg Documented by: Atorvastatin Calcium (Atorvastatin Calcium 20 Mg Tablet) 20 mg PO DAILY COUNT INCLUDES THE [facility] Last Admin: 11/05/20 10:33 Dose: 20 mg Documented by: Calcium Carbonate (Calcium Carbonate 500 Mg Tablet) 500 mg PO TID COUNT INCLUDES THE [facility] Last Admin: 11/05/20 10:34 Dose: 500 mg Documented by: Cyanocobalamin (Cyanocobalamin (Vitamin B-12) 1,000 Mcg Tablet) 1,000 mcg PO DAILY COUNT INCLUDES THE [facility] Last Admin: 11/05/20 10:34 Dose: 1,000 mcg Documented by: Docusate Sodium (Docusate Sodium 100 Mg Capsule) 100 mg PO DAILY PRN PRN Reason: Constipation Ferrous Sulfate (Ferrous Sulfate 324 Mg Tablet.) 324 mg PO Q48H COUNT INCLUDES THE [facility] Last Admin: 11/05/20 10:33 Dose: 324 mg Documented by: Furosemide (Furosemide 40 Mg/4 Ml Vial) 40 mg IVPUSH DAILY COUNT INCLUDES THE [facility]; Protocol Last Admin: 11/05/20 10:35 Dose: 40 mg Documented by: Heparin Sodium (Porcine) (Heparin Sodium,Porcine 5,000 Unit/Ml Vial) 5,000 unit SUBCUT Q12H COUNT INCLUDES THE [facility] Last Admin: 11/05/20 03:27 Dose: Not Given Documented by: Hydralazine HCl (Hydralazine Hcl 50 Mg Tablet) 100 mg PO BID COUNT INCLUDES THE [facility]; Protocol Last Admin: 11/05/20 10:34 Dose: 100 mg Documented by: Ceftriaxone Sodium 1 gm/ (Sodium Chloride) 50 mls @ 100 mls/hr IV Q24H COUNT INCLUDES THE [facility] Azithromycin 500 mg/ Sodium (Chloride) 250 mls @ 125 mls/hr IV Q24H COUNT INCLUDES THE [facility] Insulin Glargine (Insulin Glargine,Hum.Rec.Anlog 100 Unit/Ml 10 Ml Vial) 18 unit SUBCUT DAILY COUNT INCLUDES THE [facility] Last Admin: 11/05/20 10:35 Dose: 18 unit Documented by: Insulin Human Lispro (Insulin Lispro 100 Unit/Ml 3 Ml Vial) 5 unit SUBCUT TIDWM COUNT INCLUDES THE [facility] Last Admin: 11/05/20 07:41 Dose: Not Given Documented by: Labetalol HCl (Labetalol Hcl 100 Mg Tablet) 300 mg PO BID COUNT INCLUDES THE [facility] Last Admin: 11/05/20 10:33 Dose: 300 mg Documented by: Non-Formulary Medication (Diclofenac Sodium [Voltaren Arthritis Pain]) 4 gm TOPICAL QID COUNT INCLUDES THE [facility] Omeprazole (Omeprazole 20 Mg Capsule.Dr) 20 mg PO BID COUNT INCLUDES THE [facility] Last Admin: 11/05/20 10:33 Dose: 20 mg Documented by: Ondansetron HCl (Ondansetron Hcl 4 Mg/2 Ml Vial) 4 mg IVPUSH Q8H PRN PRN Reason: Nausea and Vomiting Pharmacy Consult (Consult Rx Perform Med Rec) 1 each MISCELLANE ONCE PRN PRN Reason: Consult order Pharmacy Consult (Consult Rx Vancomycin Dosing) 1 each MISCELLANE DAILY PRN PRN Reason: Consult order Psyllium Hydrophilic Mucilloid (Psyllium Seed 3.4 Gm Powd.Pack) 3.4 gm PO DAILY COUNT INCLUDES THE [facility] Last Admin: 11/05/20 10:38 Dose: 3.4 gm Documented by: Sevelamer Carbonate (Sevelamer Carbonate Tablet 800 Mg Tablet) 800 mg PO TIDWM COUNT INCLUDES THE [facility] Last Admin: 11/05/20 10:34 Dose: 800 mg Documented by: Sodium Chloride (0.9 % Sodium Chloride Flush 3 Ml Syringe) 3 ml IVFLUSH QSHIFT COUNT INCLUDES THE [facility] Last Admin: 11/05/20 10:34 Dose: 3 ml Documented by: Vitamin D (Cholecalciferol (Vitamin D3) 25 Mcg Tablet) 25 mcg PO DAILY COUNT INCLUDES THE [facility] Last Admin: 11/05/20 10:34 Dose: 25 mcg Documented by: Home Medications Medication Instructions Recorded Confirmed Last Taken Type atorvastatin 20 mg tablet 20 mg PO DAILY 11/04/20 11/04/20 Unknown History hydralazine 100 mg tablet 100 mg PO BID 11/04/20 11/05/20 Unknown History insulin aspart U-100 100 unit/mL 5 unit SUBCUT TID 11/04/20 11/05/20 Unknown History (3 mL) subcutaneous pen (Novolog Flexpen U-100 Insulin aspart) insulin glargine 100 unit/mL (3 18 unit SUBCUT QAM 11/04/20 11/05/20 Unknown History mL) subcutaneous pen (Lantus Solostar U-100 Insulin) labetalol 300 mg tablet 300 mg PO BID 11/04/20 11/05/20 Unknown History levothyroxine 75 mcg tablet 75 mcg PO DAILY 11/04/20 11/05/20 Unknown History omeprazole 20 mg capsule,delayed 20 mg PO DAILY 11/04/20 11/05/20 Unknown History release ondansetron HCl 4 mg tablet 4 mg PO DAILY PRN 11/04/20 11/05/20 Unknown History prednisolone acetate 1 % eye 1 drp TID 11/04/20 11/05/20 Unknown History drops,suspension sevelamer carbonate 800 mg tablet 800 mg PO DAILY 11/04/20 11/05/20 Unknown History Physical Exam Vital Signs: Vital Signs: Last Vital Signs Temp 97.6 F 11/05/20 05:37 Pulse 95 11/05/20 10:34 Resp 17 11/05/20 05:37 BP 181/81 H 11/05/20 10:34 Pulse Ox 95 11/05/20 05:37 Body Mass Index 34.3 Const: General: comfortable, no acute distress, alert and awake Nutritional Appearance: obese Orientation/consciousness: patient oriented x3 Limitations: no limitations HENMT: Head: Yes normocephalic and Yes atraumatic Neck: Neck: Yes trachea midline, Yes supple and Yes JVD (Positive abdominal jugular reflux) Resp: Effort & Inspection: normal respiratory effort Auscultation: breath sounds absent on th left (Half way up) Cardio: Jugular venous distension: JVD Rate: regular rate Rhythm: regular rhythm Heart sounds: S1 normal heart sound present, S2 normal heart sound present, no click, no gallops, Murmur heart sound present systolic decrescendo and Other heart sounds present (S4 present) GI: Inspection: Yes obesity Auscultation: normal bowel sounds Skin: General skin exam: no rashes or lesions noted Neuro: General: patient oriented x3 and no focal motor deficits Extrem: General: Yes no clubbing, cyanosis or edema Results Labs and Meds Result diagrams: 11/05/20 05:47 11/05/20 05:47 Lab results: Laboratory Results - last 24 hr 11/04/20 11/04/20 11/04/20 16:49 20:27 20:27 WBC 13.4 H RBC 3.56 L D Hgb 9.2 L Hct 31.3 L D MCV 87.9 MCH 25.8 L MCHC 29.4 L RDW 18.7 H Plt Count 508 H D MPV 10.3 Immature Gran % (Auto) 0.6 H Neut % (Auto) 82.1 H Lymph % (Auto) 8.3 L [place] % (Auto) 8.0 Eos % (Auto) 0.7 Baso % (Auto) 0.3 Lymph # (Auto) 1.1 L [place] # (Auto) 1.1 Eos # (Auto) 0.1 Baso # (Auto) 0.0 Abs Immat Gran (auto) 0.08 H Absolute Neuts (auto) 11.0 H Absolute Nucleated RBC 0.000 Nucleated RBC % (auto) 0.0 Sodium Potassium Chloride Carbon Dioxide Anion Gap BUN Creatinine Estim Creat Clear Calc Estimated GFR POC Glucose Random Glucose Lactic Acid Calcium Troponin I High Sens < 3.5 B-Natriuretic Peptide 2122 H Urine Color Urine Appearance Urine pH Ur Specific [place] Urine Protein Urine Glucose (UA) Urine Ketones Urine Blood Urine Nitrite Ur Leukocyte Esterase Urine RBC Urine WBC Ur Squamous Epith Cells Urine Bacteria Coronavirus (PCR) COVID-19 ([facility]) Negative COVID-19 Clin Com See Note Influenza Type A (PCR) Influenza Type B (PCR) RSV RNA Qual (PCR) 11/04/20 11/04/20 11/04/20 20:27 20:27 20:56 WBC RBC Hgb Hct MCV MCH MCHC RDW Plt Count MPV Immature Gran % (Auto) Neut % (Auto) Lymph % (Auto) [place] % (Auto) Eos % (Auto) Baso % (Auto) Lymph # (Auto) [place] # (Auto) Eos # (Auto) Baso # (Auto) Abs Immat Gran (auto) Absolute Neuts (auto) Absolute Nucleated RBC Nucleated RBC % (auto) Sodium 139 Potassium 3.8 Chloride 98 Carbon Dioxide 27 Anion Gap 18 BUN 19 H Creatinine 4.00 H* Estim Creat Clear Calc 16.5 Estimated GFR 11 POC Glucose Random Glucose 121 H Lactic Acid 1.6 Calcium 7.7 L D Troponin I High Sens B-Natriuretic Peptide Urine Color YELLOW Urine Appearance CLEAR Urine pH 8.0 Ur Specific [place] 1.015 Urine Protein 3+ H Urine Glucose (UA) 250 H Urine Ketones 5 Urine Blood 1+ H Urine Nitrite NEG Ur Leukocyte Esterase NEG Urine RBC 1-4 Urine WBC 1-4 Ur Squamous Epith Cells 1+ Urine Bacteria 1+ Coronavirus (PCR) COVID-19 ([facility]) COVID-19 Clin Com Influenza Type A (PCR) Influenza Type B (PCR) RSV RNA Qual (PCR) 11/04/20 11/05/20 11/05/20 21:20 05:47 05:47 WBC 10.9 H RBC 3.19 L Hgb 8.1 L Hct 27.9 L MCV 87.5 MCH 25.4 L MCHC 29.0 L RDW 18.7 H Plt Count 462 H MPV 10.4 Immature Gran % (Auto) 0.8 H Neut % (Auto) 80.2 H Lymph % (Auto) 9.0 L [place] % (Auto) 9.0 Eos % (Auto) 0.7 Baso % (Auto) 0.3 Lymph # (Auto) 1.0 L [place] # (Auto) 1.0 Eos # (Auto) 0.1 Baso # (Auto) 0.0 Abs Immat Gran (auto) 0.09 H Absolute Neuts (auto) 8.8 H Absolute Nucleated RBC 0.000 Nucleated RBC % (auto) 0.0 Sodium 140 Potassium 3.8 Chloride 100 Carbon Dioxide 28 Anion Gap 16 BUN 25 H Creatinine 4.55 H* Estim Creat Clear Calc 14.5 Estimated GFR 10 POC Glucose 107 Random Glucose 127 H Lactic Acid Calcium 7.4 L Troponin I High Sens B-Natriuretic Peptide Urine Color Urine Appearance Urine pH Ur Specific [place] Urine Protein Urine Glucose (UA) Urine Ketones Urine Blood Urine Nitrite Ur Leukocyte Esterase Urine RBC Urine WBC Ur Squamous Epith Cells Urine Bacteria Coronavirus (PCR) COVID-19 ([facility]) COVID-19 Clin Com Influenza Type A (PCR) Influenza Type B (PCR) RSV RNA Qual (PCR) 11/05/20 11/05/20 06:15 07:27 WBC RBC Hgb Hct MCV MCH MCHC RDW Plt Count MPV Immature Gran % (Auto) Neut % (Auto) Lymph % (Auto) [place] % (Auto) Eos % (Auto) Baso % (Auto) Lymph # (Auto) [place] # (Auto) Eos # (Auto) Baso # (Auto) Abs Immat Gran (auto) Absolute Neuts (auto) Absolute Nucleated RBC Nucleated RBC % (auto) Sodium Potassium Chloride Carbon Dioxide Anion Gap BUN Creatinine Estim Creat Clear Calc Estimated GFR POC Glucose 116 H Random Glucose Lactic Acid Calcium Troponin I High Sens B-Natriuretic Peptide Urine Color Urine Appearance Urine pH Ur Specific [place] Urine Protein Urine Glucose (UA) Urine Ketones Urine Blood Urine Nitrite Ur Leukocyte Esterase Urine RBC Urine WBC Ur Squamous Epith Cells Urine Bacteria Coronavirus (PCR) NEGATIVE COVID-19 ([facility]) COVID-19 Clin Com Influenza Type A (PCR) NEGATIVE Influenza Type B (PCR) NEGATIVE RSV RNA Qual (PCR) NEGATIVE EKG shows normal sinus rhythm with right bundle-branch block with no acute ST T wave changes Imaging Radiologist's impression: Impressions Chest X-Ray 11/04/20 17:03 IMPRESSION: Small left and tiny right pleural effusions with associated basilar atelectasis. Chest CT 11/04/20 19:31 IMPRESSION: Moderate left and small right pleural effusions with underlying atelectasis. In addition there is moderate pericardial effusion. Reactionary lymph nodes in the mediastinum. Assessment and Plan (1) CHF exacerbation: Status: Acute Patient presents with progressive shortness of breath which is appears to be multifactorial including fluid overload and congestive heart failure as well as pleural effusion with underlying left lower lobe consolidation consistent with pneumonia. She also has pericardial effusion which appears to be moderate on CT scan. Follow up with echocardiogram, see below. Supposedly she still has a diuretic response and appears clinically fluid overloaded. Try IV Lasix 40 mg IV b.i.d.. Strict intake and output chart needs to be pursued. However in the long run given that she was admitted in August with pulmonary edema related to hypertensive crisis and appears to be fluid overloaded with elevated BNP needs further optimization of her dry weight. I would consider dropping her dry weight to 91 kg. Discussed with Nephrology about the same. She also needs aggressive blood pressure control. Increase hydralazine to 100 mg t.i.d. and add Norvasc 2.5 mg to her regimen. Follow-up blood pressure closely with target goal blood pressure ideally less than 140/84 at all times. Workup for sleep apnea as outpatient. Will follow with echocardiogram that was done today. Eventually will require ischemic workup including cardiac catheterization hemodynamic measurement as outpatient. This was discussed with her. She was low surprising were diagnosed heart failure but understands management. (2) Pericardial effusion: Status: Acute Pericardial effusion which appears to be moderate on CT scan. This is new finding compared to CT scan from August. Appears to have no clinical hemodynamic compromise. Will review echocardiogram to see if there is any early signs of hemodynamic compromise. If so will require pericardial tap. Most likely inflammatory related to her pneumonia, could be related to renal failure although unlikely that she is on continues dialysis. Will monitor clinically. May require further workup and repeat echocardiograms as we go along. Will follow with the patient. Thank you for allowing us to partake in the care Procedures Date of Service Date of Service: 11/05/20
[2020-11-05 11:01] LABS: Glucose, Whole Blood 158 mg/dL (60-115)
--- NOTE | 2020-11-05 11:26 | HO.PM.IMPN ---
Subjective Subjective Date of Service: 11/05/20 Interval History: the patient was seen and evaluated this morning Laying in bed, feels some improvement since admission Still complaining of dyspnea on exertion Denies any fever, chills overnight No reported other overnight events. Systemic review: No fever, chills or weakness No chest pain, palpitation Dyspnea on exertion, coughing and shortness of breath No abdominal pain, nausea or vomiting No urinary symptoms No any rash or wounds Physical Exam Vital Signs: Vital Signs: Last Vital Signs Temp 97.6 F 11/05/20 05:37 Pulse 95 11/05/20 10:34 Resp 17 11/05/20 05:37 BP 181/81 H 11/05/20 10:34 Pulse Ox 95 11/05/20 05:37 Body Mass Index 34.3 Const: Other: Constitutional : Alert, oriented Neck : Normal inspection, Supple Cardiovascular : RRR, S1 S2, no lower extremity edema Respiratory : Decreased bilateral air entry, bilateral scattered wheezes, basis crackles bilaterally Gastrointestinal: soft, lax, Normal bowel sounds, Non tender Skin : Warm, Dry Neurological : Alert & oriented x3, No focal deficit Objective Data Active Medications Acetaminophen (Acetaminophen 325 Mg Tablet) 650 mg PO Q6H PRN PRN Reason: Pain, Mild (Pain Scale 1-3) Aspirin (Aspirin 81 Mg Tab.Chew) 81 mg PO DAILY ON LICENSE OF [facility] Last Admin: 11/05/20 10:33 Dose: 81 mg Documented by: SAWYER Atorvastatin Calcium (Atorvastatin Calcium 20 Mg Tablet) 20 mg PO DAILY ON LICENSE OF [facility] Last Admin: 11/05/20 10:33 Dose: 20 mg Documented by: SAWYER Calcium Carbonate (Calcium Carbonate 500 Mg Tablet) 500 mg PO TID ON LICENSE OF [facility] Last Admin: 11/05/20 10:34 Dose: 500 mg Documented by: SAWYER Cyanocobalamin (Cyanocobalamin (Vitamin B-12) 1,000 Mcg Tablet) 1,000 mcg PO DAILY ON LICENSE OF [facility] Last Admin: 11/05/20 10:34 Dose: 1,000 mcg Documented by: SAWYER Docusate Sodium (Docusate Sodium 100 Mg Capsule) 100 mg PO DAILY PRN PRN Reason: Constipation Ferrous Sulfate (Ferrous Sulfate 324 Mg Tablet.Dr) 324 mg PO Q48H ON LICENSE OF [facility] Last Admin: 11/05/20 10:33 Dose: 324 mg Documented by: SAWYER Furosemide (Furosemide 40 Mg/4 Ml Vial) 40 mg IVPUSH DAILY ON LICENSE OF [facility]; Protocol Last Admin: 11/05/20 10:35 Dose: 40 mg Documented by: SAWYER Heparin Sodium (Porcine) (Heparin Sodium,Porcine 5,000 Unit/Ml Vial) 5,000 unit SUBCUT Q12H ON LICENSE OF [facility] Last Admin: 11/05/20 03:27 Dose: Not Given Documented by: JUAN Non-Admin Reason: Patient Refused Hydralazine HCl (Hydralazine Hcl 50 Mg Tablet) 100 mg PO BID ON LICENSE OF [facility]; Protocol Last Admin: 11/05/20 10:34 Dose: 100 mg Documented by: SAWYER Ceftriaxone Sodium 1 gm/ (Sodium Chloride) 50 mls @ 100 mls/hr IV Q24H LISSETH Azithromycin 500 mg/ Sodium (Chloride) 250 mls @ 125 mls/hr IV Q24H ON LICENSE OF [facility] Insulin Glargine (Insulin Glargine,Hum.Rec.Anlog 100 Unit/Ml 10 Ml Vial) 18 unit SUBCUT DAILY ON LICENSE OF [facility] Last Admin: 11/05/20 10:35 Dose: 18 unit Documented by: SAWYER Insulin Human Lispro (Insulin Lispro 100 Unit/Ml 3 Ml Vial) 5 unit SUBCUT TIDWM ON LICENSE OF [facility] Last Admin: 11/05/20 07:41 Dose: Not Given Documented by: SAWYER Non-Admin Reason: No Insulin Coverage Labetalol HCl (Labetalol Hcl 100 Mg Tablet) 300 mg PO BID ON LICENSE OF [facility] Last Admin: 11/05/20 10:33 Dose: 300 mg Documented by: SAWYER Non-Formulary Medication (Diclofenac Sodium [Voltaren Arthritis Pain]) 4 gm TOPICAL QID ON LICENSE OF [facility] Omeprazole (Omeprazole 20 Mg Capsule.Dr) 20 mg PO BID ON LICENSE OF [facility] Last Admin: 11/05/20 10:33 Dose: 20 mg Documented by: SAWYER Ondansetron HCl (Ondansetron Hcl 4 Mg/2 Ml Vial) 4 mg IVPUSH Q8H PRN PRN Reason: Nausea and Vomiting Pharmacy Consult (Consult Rx Perform Med Rec) 1 each MISCELLANE ONCE PRN PRN Reason: Consult order Pharmacy Consult (Consult Rx Vancomycin Dosing) 1 each MISCELLANE DAILY PRN PRN Reason: Consult order Psyllium Hydrophilic Mucilloid (Psyllium Seed 3.4 Gm Powd.Pack) 3.4 gm PO DAILY ON LICENSE OF [facility] Last Admin: 11/05/20 10:38 Dose: 3.4 gm Documented by: SAWYER Sevelamer Carbonate (Sevelamer Carbonate Tablet 800 Mg Tablet) 800 mg PO TIDWM ON LICENSE OF [facility] Last Admin: 11/05/20 10:34 Dose: 800 mg Documented by: SAWYER Sodium Chloride (0.9 % Sodium Chloride Flush 3 Ml Syringe) 3 ml IVFLUSH QSHIFT ON LICENSE OF [facility] Last Admin: 11/05/20 10:34 Dose: 3 ml Documented by: SAWYER Vitamin D (Cholecalciferol (Vitamin D3) 25 Mcg Tablet) 25 mcg PO DAILY ON LICENSE OF [facility] Last Admin: 11/05/20 10:34 Dose: 25 mcg Documented by: SAWYER Labs CBC & Chem 7: 11/05/20 05:47 11/05/20 05:47 Labs: Laboratory Results - last 24 hr 11/04/20 11/04/20 11/04/20 16:49 20:27 20:27 MCV 87.9 MCH 25.8 L MCHC 29.4 L RDW 18.7 H Plt Count 508 H D MPV 10.3 Immature Gran % (Auto) 0.6 H Neut % (Auto) 82.1 H Lymph % (Auto) 8.3 L Grady % (Auto) 8.0 Eos % (Auto) 0.7 Baso % (Auto) 0.3 Lymph # (Auto) 1.1 L Grady # (Auto) 1.1 Eos # (Auto) 0.1 Baso # (Auto) 0.0 Abs Immat Gran (auto) 0.08 H Absolute Neuts (auto) 11.0 H Absolute Nucleated RBC 0.000 Nucleated RBC % (auto) 0.0 Anion Gap Estim Creat Clear Calc Estimated GFR POC Glucose Random Glucose Lactic Acid Calcium Troponin I High Sens < 3.5 B-Natriuretic Peptide 2122 H Urine Color Urine Appearance Urine pH Ur Specific [place] Urine Protein Urine Glucose (UA) Urine Ketones Urine Blood Urine Nitrite Ur Leukocyte Esterase Urine RBC Urine WBC Ur Squamous Epith Cells Urine Bacteria Coronavirus (PCR) COVID-19 ([facility]FR[facility]) Negative COVID-19 Clin Com See Note Influenza Type A (PCR) Influenza Type B (PCR) RSV RNA Qual (PCR) 11/04/20 11/04/20 11/04/20 20:27 20:27 20:56 MCV MCH MCHC RDW Plt Count MPV Immature Gran % (Auto) Neut % (Auto) Lymph % (Auto) Grady % (Auto) Eos % (Auto) Baso % (Auto) Lymph # (Auto) Grady # (Auto) Eos # (Auto) Baso # (Auto) Abs Immat Gran (auto) Absolute Neuts (auto) Absolute Nucleated RBC Nucleated RBC % (auto) Anion Gap 18 Estim Creat Clear Calc 16.5 Estimated GFR 11 POC Glucose Random Glucose 121 H Lactic Acid 1.6 Calcium 7.7 L D Troponin I High Sens B-Natriuretic Peptide Urine Color YELLOW Urine Appearance CLEAR Urine pH 8.0 Ur Specific [place] 1.015 Urine Protein 3+ H Urine Glucose (UA) 250 H Urine Ketones 5 Urine Blood 1+ H Urine Nitrite NEG Ur Leukocyte Esterase NEG Urine RBC 1-4 Urine WBC 1-4 Ur Squamous Epith Cells 1+ Urine Bacteria 1+ Coronavirus (PCR) COVID-19 ([facility]) COVID-19 Clin Com Influenza Type A (PCR) Influenza Type B (PCR) RSV RNA Qual (PCR) 11/04/20 11/05/20 11/05/20 21:20 05:47 05:47 MCV 87.5 MCH 25.4 L MCHC 29.0 L RDW 18.7 H Plt Count 462 H MPV 10.4 Immature Gran % (Auto) 0.8 H Neut % (Auto) 80.2 H Lymph % (Auto) 9.0 L Grady % (Auto) 9.0 Eos % (Auto) 0.7 Baso % (Auto) 0.3 Lymph # (Auto) 1.0 L Grady # (Auto) 1.0 Eos # (Auto) 0.1 Baso # (Auto) 0.0 Abs Immat Gran (auto) 0.09 H Absolute Neuts (auto) 8.8 H Absolute Nucleated RBC 0.000 Nucleated RBC % (auto) 0.0 Anion Gap 16 Estim Creat Clear Calc 14.5 Estimated GFR 10 POC Glucose 107 Random Glucose 127 H Lactic Acid Calcium 7.4 L Troponin I High Sens B-Natriuretic Peptide Urine Color Urine Appearance Urine pH Ur Specific [place] Urine Protein Urine Glucose (UA) Urine Ketones Urine Blood Urine Nitrite Ur Leukocyte Esterase Urine RBC Urine WBC Ur Squamous Epith Cells Urine Bacteria Coronavirus (PCR) COVID-19 ([facility]) COVID-19 Clin Com Influenza Type A (PCR) Influenza Type B (PCR) RSV RNA Qual (PCR) 11/05/20 11/05/20 11/05/20 06:15 07:27 10:51 MCV MCH MCHC RDW Plt Count MPV Immature Gran % (Auto) Neut % (Auto) Lymph % (Auto) Grady % (Auto) Eos % (Auto) Baso % (Auto) Lymph # (Auto) Grady # (Auto) Eos # (Auto) Baso # (Auto) Abs Immat Gran (auto) Absolute Neuts (auto) Absolute Nucleated RBC Nucleated RBC % (auto) Anion Gap Estim Creat Clear Calc Estimated GFR POC Glucose 116 H 158 H Random Glucose Lactic Acid Calcium Troponin I High Sens B-Natriuretic Peptide Urine Color Urine Appearance Urine pH Ur Specific [place] Urine Protein Urine Glucose (UA) Urine Ketones Urine Blood Urine Nitrite Ur Leukocyte Esterase Urine RBC Urine WBC Ur Squamous Epith Cells Urine Bacteria Coronavirus (PCR) NEGATIVE COVID-19 ([facility]) COVID-19 Clin Com Influenza Type A (PCR) NEGATIVE Influenza Type B (PCR) NEGATIVE RSV RNA Qual (PCR) NEGATIVE Assessment and Plan (1) CHF exacerbation: Status: Acute (2) Pericardial effusion: Status: Acute (3) ESRD on dialysis: Status: Acute (4) Pneumonia: Status: Acute (5) Hypertension: Status: Acute Assessment and Plan: 60-year-old female with past medical history of ESRD on dialysis, diabetes and hypertension presents to the hospital with complaints of shortness of breath found to have pneumonia as well as volume overload secondary to CHF exacerbation # community-acquired pneumonia has consolidation on CT chest has leukocytosis, afebrile IV antibiotic pending culture negative RSV and influenza # CHF exacerbation elevated BNP, and pleural effusion on chest CT no evidence or history of CHF documented in EMR she still produces urine Continue Lasix 40 IV daily Pending echocardiogram and consult Cardiology low-sodium diet, daily weight, strict diet # pericardial effusion Possibly secondary to her history of ESRD Pending Echo # ESRD on dialysis MWF Nephrology for dialysis while inpatient # HTN Elevated continue home medication Monitor # dibetes continue home and insulin low-dose sliding scale insulin diabetic diet # hypothyroidism continue home levothyroxine DVT prophylaxis: Heparin subQ Quality Stroke Does the patient have a stroke diagnosis?: No VTE Prior VTE?: No VTE Risk Level:: Medical - moderate - high VTE Device Contraindication: Treatment Not Indicated VTE Drug Contraindication: N/A - Med Ordered
--- NOTE | 2020-11-05 11:33 | W.PM.DNNEP ---
Subjective Subjective This patient was seen during dialysis. Interval history: the patient was seen and evaluated this morning Laying in bed, feels some improvement since admission Still complaining of dyspnea on exertion Denies any fever, chills overnight No reported other overnight events. Systemic review: No fever, chills or weakness No chest pain, palpitation Dyspnea on exertion, coughing and shortness of breath No abdominal pain, nausea or vomiting No urinary symptoms No any rash or wounds Physical Exam Vital Signs: Vital Signs: Last Vital Signs Temp 97.6 F 11/05/20 05:37 Pulse 95 11/05/20 10:34 Resp 17 11/05/20 05:37 BP 181/81 H 11/05/20 10:34 Pulse Ox 95 11/05/20 05:37 Body Mass Index 34.3 oral moist mucosa lungs decreased BSs on bases s1s2 no pericardial rub abd soft +BSs ext no edema, LUE AVF+thrill neuro nonfocal Assessment & Plan Assessment and plan (1) Pericardial effusion: Status: Acute (2) End stage renal disease: Status: Acute (3) Pneumonia: Status: Acute Assessment and Plan: ESRD PNA Pleuro-Pericardial effusions recs pt has been very complaint with her HD treatments, therefore doubt uremic or acute pericarditis suggest to do echocardiogram consult cards ?need pericardiocenthesis if persistent symptomatic consider diagnostic tap of other causes of pericardial effusion continue IV Antbx for CAP dose of IHD plan for HD tomorrow as per her usual regimen optimize fluid removal as much possible Time Spent With Patient Time: Total time spent is greater than 50% in coordination of care (as documented) at patient's floor/unit and/or counseling patient: Time with patient: Greater than 35 minutes Procedures Date of Service Date of Service: 11/05/20
--- NOTE | 2020-11-05 12:21 | MHC.CM.PN ---
met with pt who lives with hr family cm i ntervention is not indicated pt will arranger own transport home
--- NOTE | 2020-11-05 12:59 | CONS_ITS ---
DATE OF SERVICE: 11/05/2020 REASON FOR CONSULTATION: Management of ESRD. OUTPATIENT TOOL AND DIE ENGINEER: Dr. Remigio Garcia MD. HISTORY OF PRESENT ILLNESS: Ms. Olmstead is a very pleasant 60-year-old female with known medical history of end-stage kidney disease secondary to diabetic nephropathy, who undergoes hemodialysis at the [facility] on Wednesday, Wednesday, Wednesday. She underwent dialysis yesterday, however, she reports over the past couple of weeks, she is having increased shortness of breath with exertion, which last night exacerbated by increased shortness of breath at rest, when she came to the emergency room, she was found to have oxygen saturation 96% and a chest x-ray that showed a left lower lobe consolidation with a small to moderate left and right pleural effusions with negative COVID-19 test. She was admitted for further evaluation and management. She was started on IV antibiotic for community-acquired pneumonia and was given 1 dose of Lasix 40 mg IV. The patient had improvement in the last 12 hours as she feels her breathing has improved dramatically, she reports never missing her dialysis treatments, and she is due for dialysis tomorrow on Wednesday. Yesterday on 11/04 she only had 0.8 Kg fluid removed for unclear reasons, patients reports had no cramps or BP issues. PAST MEDICAL HISTORY: Congestive heart failure with admission a few months ago. ESRD as mentioned above. GI bleed. Hyperlipidemia. Hypertension. Hypothyroidism. Type 2 diabetes mellitus. FAMILY HISTORY: Her mother had diabetes and she from heart problems. Father, history of cardiac disease. PAST SURGICAL HISTORY: EGD and colonoscopy in the past, hysterectomy and oophorectomy. SOCIAL HISTORY: Denies history of smoking cigarettes. No alcohol intake. No illicit drugs. REVIEW OF SYSTEMS: Reports no nausea, vomiting, or diarrhea at the present time. Her shortness of breath has improved dramatically. Denies chest pain, palpitations, cough, hemoptysis, hematemesis, or bright red blood per rectum. She did have some chills and subjective fevers at home for couple of weeks off and on, denies any diarrhea or blood in the stool. Rest of the 10-point review of systems negative. PHYSICAL EXAMINATION: GENERAL: On physical evaluation, she is alert, in no apparent distress. VITAL SIGNS: Her blood pressure is 181/81, heart rate of 95 per minute, temperature 97.6, on admission 100.7, oxygen saturation is 95% on room air. HEENT: Oral moist mucosa. NECK: Reveals no jugular venous distention. LUNGS: Have decreased breath sounds on the bases. HEART: S1, S2. No S3, no S4. No murmur or rub that I can appreciate. ABDOMEN: Obese, soft, nontender. EXTREMITIES: Showed no edema. Left upper extremity AV fistula with a positive thrill and bruit. NEUROLOGIC: Nonfocal. LABORATORY DATA: CAT scan shows bilateral pleural effusions with underlying atelectases with a moderate pericardial effusion. Chest x-ray revealed a small pleural effusions with atelectasis as well. Vascular calcification in the aorta was noted. Hemoglobin of 9.2, this morning is 8.1; white count of 10,900 with a platelet count of 167,000. Potassium 3.8. IMPRESSION: Ms. Olmstead is a pleasant 60-year-old female with known medical history of ESRD, on intermittent hemodialysis 3 times a week, who was admitted to the hospital for symptoms of dyspnea on exertion, found to have left lower lobe infiltrates and a chest x-ray, COVID negative test, and bilateral pleural effusions in addition to a pericardial effusion noted on a CAT scan. 1. End-stage renal disease, very compliant with her dialysis treatments. Pneumonia. Negative COVID test. Concern for congestive heart failure, which is not evident on chest x-ray rather there is evidence of pleural pericardial effusion. 2. Hypertension. Although there is no evidence of yolanda volume overload on exam, she does have evidence of pleural effusions as well as a pericardial effusion. She does not have an acute pericarditis and I doubt that the current presentation is related to uremic pericarditis as she has received appropriate dialysis and remains very compliant. The presence of an infiltrate is consistent with pneumonia, which is very likely to be part of the problem. It may be the culprit of her symptoms. RECOMMENDATIONS: As the patient has a pericardial effusion, I think it is important Cardiology evaluates via echocardiogram if there is any evidence or concern for symptomatic effusion or evidence of cardiac tamponade physiology or pericardial drainage is appropriate although i doubt the latter. In the meantime, we will continue with regular dialysis treatments with emphasis in maximizing UFR challenge to a new EDW likely 90.5 Kg Thankfully she has been fully compliant. If no improvement there are no concerns for other potential etiologies, could consider pericardiocentesis for diagnostic purposes. I will defer to medical team and Cardiology. I will make arrangements for her regular dialysis treatment tomorrow. Resume her outpatient antihypertensive regimen. At the present time, I think there is room to increase her blood pressure medications, suggest increase labetalol to 300 mg 3 times a day. If need be for systolic blood pressure above 130, use hydralazine 10 mg IV q.6 hours p.r.n. Thank you for allowing us to be part of her care. MD NEVIN Espino/DREA / [id number] ASHLEY
[2020-11-05] MEDS: Insulin Lispro 100 UNIT/ML 3 ML VIAL SUBCUT ×2 (13:04→17:23)
[2020-11-05] MEDS: Heparin Sodium,Porcine 5,000 UNIT/ML VIAL 5000 UNIT SUBCUT (13:05)
[2020-11-05 16:35] LABS: Glucose, Whole Blood 167 mg/dL (60-115)
[2020-11-05 20:50] LABS: Glucose, Whole Blood 168 mg/dL (60-115)
[2020-11-05] MEDS: ondansetron HCL 4 MG/2 ML VIAL IVPUSH (23:46)
[2020-11-06] VITALS (11 sets, daily range): BP systolic 120–195; BP diastolic 58–87; PULSE 82–98; RESP 16–20; TEMP 36.4–37.1; O2SAT 95–97
[2020-11-06 06:12] LABS: Hematocrit 26.1 % (37-47); Hemoglobin 7.9 g/dl (12.0-16.0); Mean Corpuscular HGB Conc 30.3 g/dl (31.0-35.0); Mean Corpuscular Hemoglobin 26.1 pg (27.0-33.0); Mean Corpuscular Volume 86.1 fL (80-98); Mean Platelet Volume 9.9 fL (9.4-12.3); Platelet Count 408 X10*3/uL (160-400); Red Blood Count 3.03 X10*6/uL (4.20-5.50); Red Cell Distribution Width 18.6 % (11.0-16.0); White Blood Count 9.7 X10*3/uL (4.8-10.8)
[2020-11-06 06:34] LABS: B Type Natriuretic Peptide 1953 pg/mL (<100)
[2020-11-06 06:37] LABS: Anion Gap 19 (12-20); Blood Urea Nitrogen 39 mg/dL (9-16); Calcium 7.3 mg/dL (8.4-10.2); Carbon Dioxide 24 mmol/L (22-29); Chloride 99 mmol/L (96-108); Creatinine Clr Calc Pharmacy 10.9; Estimated Glomerular Filt Rate 7; Glucose Random 170 mg/dL (60-115); Potassium 3.7 mmol/L (3.3-5.1); Sodium 138 mmol/L (135-145)
[2020-11-06 07:29] LABS: Glucose, Whole Blood 146 mg/dL (60-115)
[2020-11-06] MEDS: Sevelamer Carbonate Tablet 800 MG TABLET PO ×2 (08:37→16:57)
[2020-11-06] MEDS: Cholecalciferol (Vitamin D3) 25 MCG TABLET PO (08:37)
[2020-11-06] MEDS: Aspirin 81 MG TAB.CHEW PO (08:37)
[2020-11-06] MEDS: Cyanocobalamin (Vitamin B-12) 1,000 MCG TABLET 1000 MCG PO (08:37)
[2020-11-06] MEDS: Omeprazole 20 MG CAPSULE.DR PO ×2 (08:38→20:19)
[2020-11-06] MEDS: Atorvastatin Calcium 20 MG TABLET PO (08:38)
[2020-11-06] MEDS: Insulin Glargine,Hum.rec.anlog 100 UNIT/ML 10 ML VIAL 18 UNIT SUBCUT (08:40)
[2020-11-06] MEDS: 0.9 % Sodium Chloride Flush 3 ML SYRINGE IVFLUSH ×3 (08:40→20:19)
--- NOTE | 2020-11-06 08:57 | PM.PNCARD ---
Subjective Subjective Date of Service: 11/06/20 <KELSEY Yan - Last Filed: 11/06/20 10:23> 11/06/20 <Sharad Vazquez MD - Last Filed: 11/06/20 10:52> Principal diagnosis: CHF, PNA, ESRD on dialysis, uncontrolled HTN, anemia <KELSEY Yan - Last Filed: 11/06/20 10:23> Interval history: Cardiology follow up for CHF, HTN, sob. Seen at 0830. Today she reports that she slept well last night with HOB mostly flat. Denies cough or waking with sob. Still has sob with walking. Denies chest pains, palpitation, dizziness. Edema has resolved. Planning for dialysis today. <KELSEY Yan - Last Filed: 11/06/20 10:23> Review of Systems Review of Systems as above <KELSEY Yan - Last Filed: 11/06/20 10:23> Physical Exam Vital Signs: Last Vital Signs Temp 97.5 F 11/06/20 03:09 Pulse 90 11/06/20 08:51 Resp 20 11/06/20 07:49 BP 173/80 H 11/06/20 08:51 Pulse Ox 96 11/06/20 07:49 Body Mass Index 34.3 <KELSEY Yan - Last Filed: 11/06/20 10:23> Const General: cooperative, no acute distress, alert and awake <KELSEY Yan - Last Filed: 11/06/20 10:23> Orientation/consciousness: patient oriented x3 <KELSEY Yan - Last Filed: 11/06/20 10:23> Neck Neck: Yes normal visual inspection and Yes JVD (mild elevation) <KELSEY Yan - Last Filed: 11/06/20 10:23> Resp Effort & Inspection: normal respiratory effort, able to speak in complete sentences and not labored <KELSEY Yan - Last Filed: 11/06/20 10:23> Auscultation: clear to auscultation bilaterally, rales (Left base), no rhonchi and no wheezes <KELSEY Yan - Last Filed: 11/06/20 10:23> Cardio Jugular venous distension: JVD present <LOYD YanC - Last Filed: 11/06/20 10:23> Palpation: normal PMI <LOYD Yan - Last Filed: 11/06/20 10:23> Rate: regular rate <LOYD Yan - Last Filed: 11/06/20 10:23> Rhythm: regular rhythm <LOYD Yan - Last Filed: 11/06/20 10:23> Heart sounds: S1 normal heart sound present and S2 normal heart sound present <LOYD Yan - Last Filed: 11/06/20 10:23> Peripheral pulses: Peripheral pulses 2+ throughout <LOYD Yan - Last Filed: 11/06/20 10:23> GI Inspection: Yes normal to inspection <LOYD Yan - Last Filed: 11/06/20 10:23> Neuro General: patient oriented x3 <LOYD Yan - Last Filed: 11/06/20 10:23> Extrem General: Yes normal to inspection and No edema <LOYD Yan - Last Filed: 11/06/20 10:23> Results Labs and Meds Result diagrams: : 11/06/20 05:56 11/06/20 05:56 <LOYD Yan - Last Filed: 11/06/20 10:23> Lab results: Laboratory Results - last 24 hr 11/05/20 11/05/20 11/05/20 10:51 16:15 20:39 WBC RBC Hgb Hct MCV MCH MCHC RDW Plt Count MPV Absolute Nucleated RBC Nucleated RBC % (auto) Sodium Potassium Chloride Carbon Dioxide Anion Gap BUN Creatinine Estim Creat Clear Calc Estimated GFR POC Glucose 158 H 167 H 168 H Random Glucose Calcium B-Natriuretic Peptide 11/06/20 11/06/20 11/06/20 05:56 05:56 05:56 WBC 9.7 RBC 3.03 L Hgb 7.9 L Hct 26.1 L MCV 86.1 MCH 26.1 L MCHC 30.3 L RDW 18.6 H Plt Count 408 H MPV 9.9 Absolute Nucleated RBC 0.000 Nucleated RBC % (auto) 0.0 Sodium 138 Potassium 3.7 Chloride 99 Carbon Dioxide 24 Anion Gap 19 BUN 39 H D Creatinine 6.05 H* Estim Creat Clear Calc 10.9 Estimated GFR 7 POC Glucose Random Glucose 170 H Calcium 7.3 L B-Natriuretic Peptide 1953 H 11/06/20 07:13 WBC RBC Hgb Hct MCV MCH MCHC RDW Plt Count MPV Absolute Nucleated RBC Nucleated RBC % (auto) Sodium Potassium Chloride Carbon Dioxide Anion Gap BUN Creatinine Estim Creat Clear Calc Estimated GFR POC Glucose 146 H Random Glucose Calcium B-Natriuretic Peptide <LOYD YanC - Last Filed: 11/06/20 10:23> Progress Note: A&P Assessment and plan (1) CHF exacerbation: Status: Acute <LOYD YanC - Last Filed: 11/06/20 10:23> Assessment and Plan: Admit with sob. CXR / CT scan show LLL PNA with effusion and mod pericardial effusion. BNP elevated at 2122. Started on IV Lasix to assist with diuresis. Dry wt goal 91kg - Dr Vazquez reviewed with nephrology. Echo yesteday showed EF 60-65%, mod dilated LA, Mod , small pericardial effusion with no tamponade, normal RVSP. Having hemodialysis today. BNP down to 1953. Still reports sob with walking. Has mild JVD, edema resolved. Can continue IV Lasix today. Fluid overload improving. Her sob is likely multifactorial with her PNA, anemia, obesity and fluid. We will follow. <LOYD YanC - Last Filed: 11/06/20 10:23> Admit with sob. CXR / CT scan show LLL PNA with effusion and mod pericardial effusion. BNP elevated at 2122. Started on IV Lasix to assist with diuresis. Dry wt goal 91kg - Dr Vazquez reviewed with nephrology. Echo yesteday showed EF 60-65%, mod dilated LA, Mod , small pericardial effusion with no tamponade, normal RVSP. Having hemodialysis today. BNP down to 1953. Still reports sob with walking. Has mild JVD, edema resolved. Can continue IV Lasix today. Fluid overload improving. Her sob is likely multifactorial with her PNA, anemia, obesity and fluid. We will follow. Patient seen and examined. Case discussed with Miley Berry. Patient shortness of breath is better. Undergoing dialysis today. Plan to remove 4 kg. Follow BMP tomorrow. Continue supportive care for her pneumonia which is also significantly contributing to her shortness of breath. Better control of blood pressure is required. Change hydralazine to 100 mg b.i.d.. Add Norvasc to her regimen. Sleep study will need to be performed. Outpatient cardiac catheterization hemodynamic monitoring will be pursued. Will follow the patient. <Sharad Vazquez MD - Last Filed: 11/06/20 10:52> (2) Pericardial effusion: Status: Acute <KELSEY Yan - Last Filed: 11/06/20 10:23> Assessment and Plan: as above. Small on echo. <KELSEY Yan - Last Filed: 11/06/20 10:23> (3) Pneumonia: Status: Acute <KELSEY Yan - Last Filed: 11/06/20 10:23> Assessment and Plan: LLL consolidate. Being tx for PNA with IV AB, managed by hospitalist <KELSEY Yan - Last Filed: 11/06/20 10:23> (4) ESRD on dialysis: Status: Acute <KELSEY Yan - Last Filed: 11/06/20 10:23> Assessment and Plan: On Hemodialysis, to recieve today. Followed by nephrology <KELSEY Yan - Last Filed: 11/06/20 10:23> (5) Anemia: Status: Acute <KELSEY Yan - Last Filed: 11/06/20 10:23> Assessment and Plan: Hx of anemia. Stool occult blood neg in September. Hgb 9.2 on admit, Hgb 7.9 this am. No signs of active bleeding. Her anemia may be contributing to her sob. May be anemia of chronic ds. Consider further eval, Heme consult. <KELSEY Yan - Last Filed: 11/06/20 10:23> (6) Uncontrolled hypertension: Status: Acute <KELSEY Yan - Last Filed: 11/06/20 10:23> Assessment and Plan: BPs elevated this admit, which can also contribute to her sob and CHF. BP this am 173/80. On her usual Hydralazine and Labetolol. Will start on Amlodipine 2.5 mg daily. Ongoing BP monitoring. <KELSEY Yan - Last Filed: 11/06/20 10:23> (7) Aortic stenosis: Status: Acute <KELSEY Yan - Last Filed: 11/06/20 10:23> Assessment and Plan: Echo yesterday shows Moderate aortic stenosis, mean gradiant 16 mmhg, SHAR 1.27 cm2. Will need to be followed as outpt <KELSEY Yan - Last Filed: 11/06/20 10:23> Fall Risk Details Current Medications: Current Medications Acetaminophen (Acetaminophen 325 Mg Tablet) 650 mg PO Q6H PRN PRN Reason: Pain, Mild (Pain Scale 1-3) Amlodipine Besylate (Amlodipine Besylate 2.5 Mg Tablet) 2.5 mg PO DAILY [facility]; Protocol Aspirin (Aspirin 81 Mg Tab.Chew) 81 mg PO DAILY [facility] Last Admin: 11/06/20 08:37 Dose: 81 mg Documented by: Atorvastatin Calcium (Atorvastatin Calcium 20 Mg Tablet) 20 mg PO DAILY [facility] Last Admin: 11/06/20 08:38 Dose: 20 mg Documented by: Calcium Carbonate (Calcium Carbonate 500 Mg Tablet) 500 mg PO TID [facility] Last Admin: 11/06/20 08:37 Dose: 500 mg Documented by: Cyanocobalamin (Cyanocobalamin (Vitamin B-12) 1,000 Mcg Tablet) 1,000 mcg PO DAILY [facility] Last Admin: 11/06/20 08:37 Dose: 1,000 mcg Documented by: Docusate Sodium (Docusate Sodium 100 Mg Capsule) 100 mg PO DAILY PRN PRN Reason: Constipation Ferrous Sulfate (Ferrous Sulfate 324 Mg Tablet.) 324 mg PO Q48H [facility] Last Admin: 11/05/20 10:33 Dose: 324 mg Documented by: Furosemide (Furosemide 40 Mg/4 Ml Vial) 40 mg IVPUSH BID@0900,1800 [facility]; Protocol Heparin Sodium (Porcine) (Heparin Sodium,Porcine 5,000 Unit/Ml Vial) 5,000 unit SUBCUT Q12H [facility] Last Admin: 11/06/20 03:30 Dose: Not Given Documented by: Hydralazine HCl (Hydralazine Hcl 50 Mg Tablet) 100 mg PO TID [facility]; Protocol Ceftriaxone Sodium 1 gm/ (Sodium Chloride) 50 mls @ 100 mls/hr IV Q24H [facility] Last Infusion: 11/05/20 21:54 Dose: Infused Documented by: Azithromycin 500 mg/ Sodium (Chloride) 250 mls @ 125 mls/hr IV Q24H [facility] Last Infusion: 11/06/20 00:00 Dose: Infused Documented by: Insulin Glargine (Insulin Glargine,Hum.Rec.Anlog 100 Unit/Ml 10 Ml Vial) 18 unit SUBCUT DAILY [facility] Last Admin: 11/06/20 08:40 Dose: 18 unit Documented by: Insulin Human Lispro (Insulin Lispro 100 Unit/Ml 3 Ml Vial) 5 unit SUBCUT TIDWM [facility] Last Admin: 11/06/20 08:51 Dose: Not Given Documented by: Labetalol HCl (Labetalol Hcl 100 Mg Tablet) 300 mg PO BID [facility] Last Admin: 11/06/20 08:51 Dose: Not Given Documented by: Lidocaine HCl (Lidocaine Hcl 1 % Mpf 2 Ml Ampul) 0.5 ml SUBCUT MOWEFR@1645 [facility] Non-Formulary Medication (Diclofenac Sodium [Voltaren Arthritis Pain]) 4 gm TOPICAL QID [facility] Omeprazole (Omeprazole 20 Mg Capsule.Dr) 20 mg PO BID [facility] Last Admin: 11/06/20 08:38 Dose: 20 mg Documented by: Ondansetron HCl (Ondansetron Hcl 4 Mg/2 Ml Vial) 4 mg IVPUSH Q8H PRN PRN Reason: Nausea and Vomiting Last Admin: 11/05/20 23:46 Dose: 4 mg Documented by: Pharmacy Consult (Consult Rx Perform Med Rec) 1 each MISCELLANE ONCE PRN PRN Reason: Consult order Pharmacy Consult (Consult Rx Vancomycin Dosing) 1 each MISCELLANE DAILY PRN PRN Reason: Consult order Psyllium Hydrophilic Mucilloid (Psyllium Seed 3.4 Gm Powd.Pack) 3.4 gm PO DAILY [facility] Last Admin: 11/06/20 08:38 Dose: 3.4 gm Documented by: Sevelamer Carbonate (Sevelamer Carbonate Tablet 800 Mg Tablet) 800 mg PO TIDWM [facility] Last Admin: 11/06/20 08:37 Dose: 800 mg Documented by: Sodium Chloride (0.9 % Sodium Chloride Flush 3 Ml Syringe) 3 ml IVFLUSH QSHIFT [facility] Last Admin: 11/06/20 08:40 Dose: 3 ml Documented by: Vitamin D (Cholecalciferol (Vitamin D3) 25 Mcg Tablet) 25 mcg PO DAILY [facility] Last Admin: 11/06/20 08:37 Dose: 25 mcg Documented by: <KELSEY Yan - Last Filed: 11/06/20 10:23> Time Spent With Patient Time: Total time spent is greater than 50% in coordination of care (as documented) at patient's floor/unit and/or counseling patient: <KELSEY Yan - Last Filed: 11/06/20 10:23> Time with patient: 25 - 35 minutes <KELSEY Yan - Last Filed: 11/06/20 10:23> Progress Note: Quality Stroke Does the patient have a stroke diagnosis?: No <KELSEY Yan - Last Filed: 11/06/20 10:23> Procedures Date of Service Date of Service: 11/06/20 <KELSEY Yan - Last Filed: 11/06/20 10:23>
--- NOTE | 2020-11-06 11:39 | P.PNNPD_ITS ---
Subjective Subjective Principal diagnosis: CHF, PNA, ESRD on dialysis, uncontrolled HTN, anemia This patient was seen during dialysis. Interval history: pt offers [place] no complaints, denies fevers cough orCP Systemic review: No fever, chills or weakness No chest pain, palpitation Dyspnea on exertion, coughing and shortness of breath No abdominal pain, nausea or vomiting No urinary symptoms No any rash or wounds Physical Exam Vital Signs: Vital Signs: Last Vital Signs Temp 97.5 F 11/06/20 03:09 Pulse 90 11/06/20 09:15 Resp 20 11/06/20 07:49 BP 173/80 H 11/06/20 09:15 Pulse Ox 96 11/06/20 07:49 Body Mass Index 34.3 oral moist mucosa lungs decreased BSs on bases s1s2 no rub abd soft nt obese ext no edema neuro nonfocal Assessment & Plan Assessment and plan (1) ESRD on dialysis: Status: Acute Assessment and Plan: Continue with current HD plan challenge UFR with goal EDW 90.5 Kg so far to lerating HD and fluid removal well (2) Pericardial effusion: Status: Acute Assessment and Plan: follow cardiology recs (3) Pneumonia: Status: Acute Assessment and Plan: continue with antbx renally IHD dosed Time Spent With Patient Time: Total time spent is greater than 50% in coordination of care (as docum ented) at patient's floor/unit and/or counseling patient: Procedures Date of Service Date of Service: 11/06/20
[2020-11-06 14:05] LABS: Glucose, Whole Blood 114 mg/dL (60-115)
--- NOTE | 2020-11-06 14:45 | HO.PM.IMPN ---
Subjective Subjective Date of Service: 11/06/20 Interval History: the patient was seen and evaluated this morning Laying in bed, feels improvement but continues to complain of dyspnea on exertion Denies any fever, chills overnight No reported other overnight events. Systemic review: No fever, chills or weakness No chest pain, palpitation Dyspnea on exertion, coughing and shortness of breath No abdominal pain, nausea or vomiting No urinary symptoms No any rash or wounds Physical Exam Vital Signs: Vital Signs: Last Vital Signs Temp 98.3 F 11/06/20 13:58 Pulse 91 11/06/20 13:58 Resp 20 11/06/20 13:58 BP 195/87 H 11/06/20 13:58 Pulse Ox 97 11/06/20 13:58 Body Mass Index 34.3 Const: Other: Constitutional : Alert, oriented Neck : Normal inspection, Supple Cardiovascular : RRR, S1 S2, no lower extremity edema Respiratory : Decreased bilateral air entry, bilateral scattered wheezes, basis crackles bilaterally Gastrointestinal: soft, lax, Normal bowel sounds, Non tender Skin : Warm, Dry Neurological : Alert & oriented x3, No focal deficit Objective Data Active Medications Acetaminophen (Acetaminophen 325 Mg Tablet) 650 mg PO Q6H PRN PRN Reason: Pain, Mild (Pain Scale 1-3) Amlodipine Besylate (Amlodipine Besylate 2.5 Mg Tablet) 2.5 mg PO DAILY [facility]; Protocol Last Admin: 11/06/20 09:14 Dose: Not Given Documented by: LOU Non-Admin Reason: Off unit: Dialysis Aspirin (Aspirin 81 Mg Tab.Chew) 81 mg PO DAILY [facility] Last Admin: 11/06/20 08:37 Dose: 81 mg Documented by: LOU Atorvastatin Calcium (Atorvastatin Calcium 20 Mg Tablet) 20 mg PO DAILY [facility] Last Admin: 11/06/20 08:38 Dose: 20 mg Documented by: LOU Calcium Carbonate (Calcium Carbonate 500 Mg Tablet) 500 mg PO TID [facility] Last Admin: 11/06/20 08:37 Dose: 500 mg Documented by: LOU Cyanocobalamin (Cyanocobalamin (Vitamin B-12) 1,000 Mcg Tablet) 1,000 mcg PO DAILY [facility] Last Admin: 11/06/20 08:37 Dose: 1,000 mcg Documented by: LOU Docusate Sodium (Docusate Sodium 100 Mg Capsule) 100 mg PO DAILY PRN PRN Reason: Constipation Ferrous Sulfate (Ferrous Sulfate 324 Mg Tablet.Dr) 324 mg PO Q48H [facility] Last Admin: 11/05/20 10:33 Dose: 324 mg Documented by: SAWYER Furosemide (Furosemide 40 Mg/4 Ml Vial) 40 mg IVPUSH BID@0900,1800 [facility]; Protocol Last Admin: 11/06/20 09:15 Dose: Not Given Documented by: LOU Non-Admin Reason: Off unit: Dialysis Heparin Sodium (Porcine) (Heparin Sodium,Porcine 5,000 Unit/Ml Vial) 5,000 unit SUBCUT Q12H [facility] Last Admin: 11/06/20 03:30 Dose: Not Given Documented by: CHRISTOFER Non-Admin Reason: Patient Refused Hydralazine HCl (Hydralazine Hcl 50 Mg Tablet) 100 mg PO TID [facility]; Protocol Last Admin: 11/06/20 09:15 Dose: Not Given Documented by: LOU Non-Admin Reason: Off unit: Dialysis Ceftriaxone Sodium 1 gm/ (Sodium Chloride) 50 mls @ 100 mls/hr IV Q24H [facility] Last Infusion: 11/05/20 21:54 Dose: 0 mls/hr Documented by: SARAH Azithromycin 500 mg/ Sodium (Chloride) 250 mls @ 125 mls/hr IV Q24H [facility] Last Infusion: 11/06/20 00:00 Dose: 0 mls/hr Documented by: CHRISTOFER Insulin Glargine (Insulin Glargine,Hum.Rec.Anlog 100 Unit/Ml 10 Ml Vial) 18 unit SUBCUT DAILY [facility] Last Admin: 11/06/20 08:40 Dose: 18 unit Documented by: LOU Insulin Human Lispro (Insulin Lispro 100 Unit/Ml 3 Ml Vial) 5 unit SUBCUT TIDWM [facility] Last Admin: 11/06/20 12:41 Dose: Not Given Documented by: LOU Non-Admin Reason: Off unit: Dialysis Labetalol HCl (Labetalol Hcl 100 Mg Tablet) 300 mg PO BID [facility] Last Admin: 11/06/20 08:51 Dose: Not Given Documented by: LOU Non-Admin Reason: Off unit: Dialysis Lidocaine HCl (Lidocaine Hcl 1 % Mpf 2 Ml Ampul) 0.5 ml SUBCUT MOWEFR@0401 [facility] Non-Formulary Medication (Diclofenac Sodium [Voltaren Arthritis Pain]) 4 gm TOPICAL QID [facility] Omeprazole (Omeprazole 20 Mg Capsule.) 20 mg PO BID [facility] Last Admin: 11/06/20 08:38 Dose: 20 mg Documented by: LOU Ondansetron HCl (Ondansetron Hcl 4 Mg/2 Ml Vial) 4 mg IVPUSH Q8H PRN PRN Reason: Nausea and Vomiting Last Admin: 11/05/20 23:46 Dose: 4 mg Documented by: CHRISTOFER Pharmacy Consult (Consult Rx Perform Med Rec) 1 each MISCELLANE ONCE PRN PRN Reason: Consult order Pharmacy Consult (Consult Rx Vancomycin Dosing) 1 each MISCELLANE DAILY PRN PRN Reason: Consult order Psyllium Hydrophilic Mucilloid (Psyllium Seed 3.4 Gm Powd.Pack) 3.4 gm PO DAILY [facility] Last Admin: 11/06/20 08:38 Dose: 3.4 gm Documented by: LOU Sevelamer Carbonate (Sevelamer Carbonate Tablet 800 Mg Tablet) 800 mg PO TIDWM [facility] Last Admin: 11/06/20 12:41 Dose: Not Given Documented by: LOU Non-Admin Reason: Off unit: Dialysis Sodium Chloride (0.9 % Sodium Chloride Flush 3 Ml Syringe) 3 ml IVFLUSH QSHIFT [facility] Last Admin: 11/06/20 08:40 Dose: 3 ml Documented by: LOU Vitamin D (Cholecalciferol (Vitamin D3) 25 Mcg Tablet) 25 mcg PO DAILY [facility] Last Admin: 11/06/20 08:37 Dose: 25 mcg Documented by: LOU Labs CBC & Chem 7: 11/06/20 05:56 11/06/20 05:56 Labs: Laboratory Results - last 24 hr 11/05/20 11/05/20 11/06/20 16:15 20:39 05:56 MCV 86.1 MCH 26.1 L MCHC 30.3 L RDW 18.6 H Plt Count 408 H MPV 9.9 Absolute Nucleated RBC 0.000 Nucleated RBC % (auto) 0.0 Anion Gap Estim Creat Clear Calc Estimated GFR POC Glucose 167 H 168 H Random Glucose Calcium B-Natriuretic Peptide 11/06/20 11/06/20 11/06/20 05:56 05:56 07:13 MCV MCH MCHC RDW Plt Count MPV Absolute Nucleated RBC Nucleated RBC % (auto) Anion Gap 19 Estim Creat Clear Calc 10.9 Estimated GFR 7 POC Glucose 146 H Random Glucose 170 H Calcium 7.3 L B-Natriuretic Peptide 1953 H 11/06/20 14:00 MCV MCH MCHC RDW Plt Count MPV Absolute Nucleated RBC Nucleated RBC % (auto) Anion Gap Estim Creat Clear Calc Estimated GFR POC Glucose 114 Random Glucose Calcium B-Natriuretic Peptide Microbiology Microbiology Results: Microbiology 11/04/20 20:56 Blood Culture - Preliminary Blood - Venous No growth after 24 hours. 11/04/20 20:27 Blood Culture - Preliminary Blood - Venous No growth after 24 hours. Assessment and Plan (1) CHF exacerbation: Status: Acute (2) Pericardial effusion: Status: Acute (3) ESRD on dialysis: Status: Acute (4) Pneumonia: Status: Acute Assessment and Plan: 60-year-old female with past medical history of ESRD on dialysis, diabetes and hypertension presents to the hospital with complaints of shortness of breath found to have pneumonia as well as volume overload secondary to CHF exacerbation # community-acquired pneumonia has consolidation on CT chest Continue IV antibiotic pending culture # CHF exacerbation elevated BNP, and pleural effusion on chest CT she still produces urine Continue Lasix 40 IV b.i.d. Echo showed moderate pericardial effusion, asymptomatic Cardiology input appreciated, treat medically and avoid interventions for now low-sodium diet, daily weight, strict diet # pericardial effusion Possibly secondary to her history of ESRD Pending Echo # ESRD on dialysis [facility] Nephrology for dialysis while inpatient # HTN Increase hydralazine to 100 t.i.d. continue home medication Monitor # dibetes continue home and insulin low-dose sliding scale insulin diabetic diet # hypothyroidism continue home levothyroxine DVT prophylaxis: Heparin subQ Quality Stroke Does the patient have a stroke diagnosis?: No VTE Prior VTE?: No VTE Risk Level:: Medical - moderate - high VTE Device Contraindication: Treatment Not Indicated VTE Drug Contraindication: N/A - Med Ordered
[2020-11-06] MEDS: hydrALAZINE HCl 50 MG TABLET 100 MG PO ×2 (15:05→20:19)
[2020-11-06] MEDS: Heparin Sodium,Porcine 5,000 UNIT/ML VIAL 5000 UNIT SUBCUT (15:08)
--- NOTE | 2020-11-06 15:32 | MHC.CM.PN ---
per rounds pt possible dc is 11/07 dc plan [facility] ins home no services
[2020-11-06 16:29] LABS: Glucose, Whole Blood 173 mg/dL (60-115)
[2020-11-06] MEDS: Insulin Lispro 100 UNIT/ML 3 ML VIAL SUBCUT (16:57)
[2020-11-06] MEDS: Furosemide 40 MG/4 ML VIAL IVPUSH (16:59)
[2020-11-06] MEDS: Labetalol HCL 100 MG TABLET 300 MG PO (20:20)
[2020-11-06] MEDS: cefTRIAXone sodium 1 GM in 0.9 % Sodium Chloride 50 ML IV (20:53)
[2020-11-06] MEDS: Azithromycin 500 MG in 0.9 % Sodium Chloride 250 ML 125 MG IV (21:27)
[2020-11-07 04:00] VITALS: BP 148/72; PULSE 86; RESP 17; TEMP 36.7; O2SAT 96
[2020-11-07 07:10] LABS: B Type Natriuretic Peptide 1647 pg/mL (<100)
[2020-11-07 07:41] VITALS: BP 195/78; PULSE 94; RESP 18; TEMP 36.9; O2SAT 97
[2020-11-07 08:00] LABS: Glucose, Whole Blood 109 mg/dL (60-115)
[2020-11-07 09:10] VITALS: BP 195/78; PULSE 94
[2020-11-07] MEDS: Cholecalciferol (Vitamin D3) 25 MCG TABLET PO (09:10)
[2020-11-07] MEDS: Atorvastatin Calcium 20 MG TABLET PO (09:10)
[2020-11-07] MEDS: Ferrous Sulfate 324 MG TABLET.DR PO (09:10)
[2020-11-07] MEDS: Sevelamer Carbonate Tablet 800 MG TABLET PO ×2 (09:10→12:56)
[2020-11-07] MEDS: Labetalol HCL 100 MG TABLET 300 MG PO (09:10)
[2020-11-07] MEDS: Cyanocobalamin (Vitamin B-12) 1,000 MCG TABLET 1000 MCG PO (09:10)
[2020-11-07] MEDS: Aspirin 81 MG TAB.CHEW PO (09:10)
[2020-11-07] MEDS: Omeprazole 20 MG CAPSULE.DR PO (09:10)
[2020-11-07 09:11] VITALS: BP 195/78; PULSE 94
[2020-11-07] MEDS: Furosemide 40 MG/4 ML VIAL IVPUSH (09:11)
[2020-11-07] MEDS: amLODIPine Besylate 2.5 MG TABLET PO (09:11)
[2020-11-07] MEDS: Insulin Glargine,Hum.rec.anlog 100 UNIT/ML 10 ML VIAL 18 UNIT SUBCUT (09:11)
[2020-11-07] MEDS: 0.9 % Sodium Chloride Flush 3 ML SYRINGE IVFLUSH (09:12)
[2020-11-07] MEDS: Insulin Lispro 100 UNIT/ML 3 ML VIAL SUBCUT ×2 (09:12→12:56)
[2020-11-07 09:26] VITALS: BP 195/78; PULSE 94
[2020-11-07] MEDS: hydrALAZINE HCl 50 MG TABLET 100 MG PO (09:26)
--- NOTE | 2020-11-07 10:12 | P.PNCA_ITS ---
Subjective Subjective Date of Service: 11/07/20 <KELSEY Yan - Last Filed: 11/07/20 10:51> 11/07/20 <Sharad Vazquez MD - Last Filed: 11/07/20 12:19> Principal diagnosis: CHF, PNA, ESRD on dialysis, uncontrolled HTN, anemia <LOYD Yan - Last Filed: 11/07/20 10:51> Interval history: Cardiology follow up for CHF. Seen today at 0815. Today she reports that she did not sleep well, but that is not unusual for her. She denies sob at rest, PND, orthopnea or edema. Has some sob when walking in the room. No cough or fever reported. Denies chest pains or palpitation. No dizziness or presyncope. Had dialysis yesterday. BP up this am, tells me it goes up and down. <KELSEY Kenyon Ch - Last Filed: 11/07/20 10:51> Review of Systems Review of Systems as above <KELSEY Yan - Last Filed: 11/07/20 10:51> Yes all other systems are reviewed and are negative <KELSEY Yan - Last Filed: 11/07/20 10:51> Physical Exam Vital Signs: Last Vital Signs Temp 98.5 F 11/07/20 07:41 Pulse 94 11/07/20 09:26 Resp 18 11/07/20 07:41 BP 195/78 H 11/07/20 09:26 Pulse Ox 97 11/07/20 07:41 Body Mass Index 34.3 <KELSEY Yan - Last Filed: 11/07/20 10:51> Const General: cooperative, no acute distress, alert and awake <KELSEY Yan - Last Filed: 11/07/20 10:51> Orientation/consciousness: patient oriented x3 <KELSEY Yan Last Filed: 11/07/20 10:51> Neck Other: JVD noted <KELSEY Yan - Last Filed: 11/07/20 10:51> Resp Other: rales in left base <KELSEY Yan - Last Filed: 11/07/20 10:51> Effort & Inspection: normal respiratory effort, able to speak in complete sentences and not labored <Miley Berry NPC - Last Filed: 11/07/20 10:51> Auscultation: clear to auscultation bilaterally, no rhonchi and no wheezes <Miley Berry NPC - Last Filed: 11/07/20 10:51> Cardio Other: systolic murmur <Miley Berry NP - Last Filed: 11/07/20 10:51> Jugular venous distension: JVD present <Miley Berry [facility] - Last Filed: 11/07/20 10:51> Palpation: normal PMI <Miley Berry NP - Last Filed: 11/07/20 10:51> Rate: regular rate <Miley Berry NP - Last Filed: 11/07/20 10:51> Rhythm: regular rhythm <Miley Berry NP - Last Filed: 11/07/20 10:51> Heart sounds: S1 normal heart sound present and S2 normal heart sound present <Miley Berry [employer]ER[employer] - Last Filed: 11/07/20 10:51> Peripheral pulses: Peripheral pulses 2+ throughout <Miley Berry NP - Last Filed: 11/07/20 10:51> GI Inspection: Yes normal to inspection <Miley Berry NP - Last Filed: 11/07/20 10 :51> Neuro General: patient oriented x3 <Miley Berry NPC - Last Filed: 11/07/20 10:51> Extrem General: Yes normal to inspection and No edema <Miley Berry [employer] CLAIMS EXAMINER-C - Last Filed: 11/07/20 10:51> Results Labs and Meds Result diagrams: : 11/06/20 05:56 11/06/20 05:56 <Miley Berry [employer] CLAIMS EXAMINER - Last Filed: 11/07/20 10:51> Lab results: Laboratory Results - last 24 hr 11/06/20 11/06/20 11/07/20 14:00 16:04 05:50 POC Glucose 114 173 H B-Natriuretic Peptide 1647 H 11/07/20 07:57 POC Glucose 109 B-Natriuretic Peptide <KELSEY Yan - Last Filed: 11/07/20 10:51> Progress Note: A&P Assessment and plan (1) Congestive heart failure: Status: Acute <KELSEY Yan - Last Filed: 11/07/20 10:51> Assessment and Plan: Admit with sob. CXR / CT scan show LLL PNA with effusion and mod pericardial effusion. BNP elevated at 2122. Was given IV Lasix to assist with diuresis. Echo 11/05 showed EF 60-65%, mod dilated LA, Mod , small pericardial effusion with no tamponade, normal RVSP. Had hemodialysis yesterday. Dry wt goal 91kg. BNP down to 1647.?Does reports sob with walking. Has mild JVD on exam. Overall CHF improving. She has ESRD and on dialysis which can be used for fluid management. Will stop IV lasix. Weight today. Her sob is likely multifactorial with her PNA, anemia, obesity and fluid. <KELSEY Yan - Last Filed: 11/07/20 10:51> Admit with sob. CXR / CT scan show LLL PNA with effusion and mod pericardial effusion. BNP elevated at 2122. Was given IV Lasix to assist with diuresis. Echo 11/05 showed EF 60-65%, mod dilated LA, Mod , small pericardial effusion with no tamponade, normal RVSP. Had hemodialysis yesterday. Dry wt goal 91kg. BNP down to 1647.?Does reports sob with walking. Has mild JVD on exam. Overall CHF improving. She has ESRD and on dialysis which can be used for fluid management. Will stop IV lasix. Weight today. Her sob is likely multifactorial with her PNA, anemia, obesity and fluid. Patient seen and examined. Case discussed with Miley Berry. Patient doing better. Dialyzed yesterday. Blood pressure is still markedly elevated, did not receive her medications yesterday prior to dialysis for fear of hypertension. Her blood pressure needs to be very aggressively control. Discuss on the phone with her daughter which is very important. She has underlying hypertensive heart disease. Also underlying of possibility of ischemic heart disease. Require cardiac catheterization which will be scheduled as outpatient in 2 weeks time given that she has to recuperated from a pneumonia. Dry weight to reduced to 91 kg as outpatient. Blood pressure goal 140/80. She may need different regimens on dialysis and non dialysis days. Low-salt diet. CHF education to be provided. Will sign of the case. Thank you for allowing us to partake in the care <Sharad Vazquez MD - Last Filed: 11/07/20 12:19> (2) Pneumonia: Status: Acute <KELSEY Yan - Last Filed: 11/07/20 10:51> Assessment and Plan: On IV antibiotics. Being followed by hospitalist. <KELSEY Yan - Last Filed: 11/07/20 10:51> (3) Hypertension: Status: Acute <KELSEY Yan - Last Filed: 11/07/20 10:51> Assessment and Plan: BPs elevated this admit, which has likely contributed to her CHF. BP this am 195/78. Did not recieve her Amlodipine yesterday or increased dose of hydralazine - due to having dialysis. No med changes at present. Continue to give meds as ordered, without skipping doses: Hydralazine, Labetolol and amlodipine. Ongoing BP monitoring. Should follow for another day. <KELSEY Yan - Last Filed: 11/07/20 10:51> (4) End stage renal disease: Status: Acute <KELSEY Yan - Last Filed: 11/07/20 10:51> Assessment and Plan: On hemodialysis. Followed by nephrology <KELSEY Yan - Last Filed: 11/07/20 10:51> (5) Anemia: Status: Acute <KELSEY Yan - Last Filed: 11/07/20 10:51> Assessment and Plan: Hx of anemia. Stool occult blood neg in September. Hgb 9.2 on admit, Hgb 7.9 yest am. No signs of active bleeding. Her anemia may be contributing to her sob. May be anemia of chronic ds. Consider further eval, Heme consult. <KELSEY Yan - Last Filed: 11/07/20 10:51> Fall Risk Details Current Medications: Current Medications Acetaminophen (Acetaminophen 325 Mg Tablet) 650 mg PO Q6H PRN PRN Reason: Pain, Mild (Pain Scale 1-3) Amlodipine Besylate (Amlodipine Besylate 2.5 Mg Tablet) 2.5 mg PO DAILY [facility]; Protocol Last Admin: 11/07/20 09:11 Dose: 2.5 mg Documented by: Aspirin (Aspirin 81 Mg Tab.Chew) 81 mg PO DAILY [facility] Last Admin: 11/07/20 09:10 Dose: 81 mg Documented by: Atorvastatin Calcium (Atorvastatin Calcium 20 Mg Tablet) 20 mg PO DAILY [facility] Last Admin: 11/07/20 09:10 Dose: 20 mg Documented by: Calcium Carbonate (Calcium Carbonate 500 Mg Tablet) 500 mg PO TID [facility] Last Admin: 11/07/20 09:10 Dose: 500 mg Documented by: Cyanocobalamin (Cyanocobalamin (Vitamin B-12) 1,000 Mcg Tablet) 1,000 mcg PO DAILY [facility] Last Admin: 11/07/20 09:10 Dose: 1,000 mcg Documented by: Docusate Sodium (Docusate Sodium 100 Mg Capsule) 100 mg PO DAILY PRN PRN Reason: Constipation Ferrous Sulfate (Ferrous Sulfate 324 Mg Tablet.Dr) 324 mg PO Q48H [facility] Last Admin: 11/07/20 09:10 Dose: 324 mg Documented by: Furosemide (Furosemide 40 Mg/4 Ml Vial) 40 mg IVPUSH BID@0900,1800 [facility]; Protocol Last Admin: 11/07/20 09:11 Dose: 40 mg Documented by: Heparin Sodium (Porcine) (Heparin Sodium,Porcine 5,000 Unit/Ml Vial) 5,000 unit SUBCUT Q12H [facility] Last Admin: 11/06/20 23:28 Dose: Not Given Documented by: Hydralazine HCl (Hydralazine Hcl 50 Mg Tablet) 100 mg PO TID [facility]; Protocol Last Admin: 11/07/20 09:26 Dose: 100 mg Documented by: Ceftriaxone Sodium 1 gm/ (Sodium Chloride) 50 mls @ 100 mls/hr IV Q24H [facility] Last Infusion: 11/06/20 21:27 Dose: Infused Documented by: Azithromycin 500 mg/ Sodium (Chloride) 250 mls @ 125 mls/hr IV Q24H [facility] Last Infusion: 11/06/20 23:28 Dose: Infused Documented by: Insulin Glargine (Insulin Glargine,Hum.Rec.Anlog 100 Unit/Ml 10 Ml Vial) 18 unit SUBCUT DAILY [facility] Last Admin: 11/07/20 09:11 Dose: 18 unit Documented by: Insulin Human Lispro (Insulin Lispro 100 Unit/Ml 3 Ml Vial) 5 unit SUBCUT TIDWM [facility] Last Admin: 11/07/20 09:12 Dose: 5 unit Documented by: Labetalol HCl (Labetalol Hcl 100 Mg Tablet) 300 mg PO BID [facility] Last Admin: 11/07/20 09:10 Dose: 300 mg Documented by: Lidocaine HCl (Lidocaine Hcl 1 % Mpf 2 Ml Ampul) 0.5 ml SUBCUT MOWEFR@0446 [facility] Last Admin: 11/06/20 17:39 Dose: Not Given Documented by: Non-Formulary Medication (Diclofenac Sodium [Voltaren Arthritis Pain]) 4 gm TOPICAL QID [facility] Omeprazole (Omeprazole 20 Mg Capsule.Dr) 20 mg PO BID [facility] Last Admin: 11/07/20 09:10 Dose: 20 mg Documented by: Ondansetron HCl (Ondansetron Hcl 4 Mg/2 Ml Vial) 4 mg IVPUSH Q8H PRN PRN Reason: Nausea and Vomiting Last Admin: 11/05/20 23:46 Dose: 4 mg Documented by: Pharmacy Consult (Consult Rx Perform Med Rec) 1 each MISCELLANE ONCE PRN PRN Reason: Consult order Pharmacy Consult (Consult Rx Vancomycin Dosing) 1 each MISCELLANE DAILY PRN PRN Reason: Consult order Psyllium Hydrophilic Mucilloid (Psyllium Seed 3.4 Gm Powd.Pack) 3.4 gm PO DAILY [facility] Last Admin: 11/07/20 09:13 Dose: 3.4 gm Documented by: Sevelamer Carbonate (Sevelamer Carbonate Tablet 800 Mg Tablet) 800 mg PO TIDWM [facility] Last Admin: 11/07/20 09:10 Dose: 800 mg Documented by: Sodium Chloride (0.9 % Sodium Chloride Flush 3 Ml Syringe) 3 ml IVFLUSH QSHIFT [facility] Last Admin: 11/07/20 09:12 Dose: 3 ml Documented by: Vitamin D (Cholecalciferol (Vitamin D3) 25 Mcg Tablet) 25 mcg PO DAILY [facility] Last Admin: 11/07/20 09:10 Dose: 25 mcg Documented by: <KELSEY Yan - Last Filed: 11/07/20 10:51> Time Spent With Patient Time: Total time spent is greater than 50% in coordination of care (as documented) at patient's floor/unit and/or counseling patient: <KELSEY Yan - Last Filed: 11/07/20 10:51> Time with patient: 25 - 35 minutes <KELSEY Yan - Last Filed: 11/07/20 10:51> Progress Note: Quality Stroke Does the patient have a stroke diagnosis?: No <KELSEY Yan - Last Filed: 11/07/20 10:51> Procedures Date of Service Date of Service: 11/07/20 <KELSEY Yan - Last Filed: 11/07/20 10:51>
[2020-11-07 11:06] LABS: Glucose, Whole Blood 151 mg/dL (60-115)
[2020-11-07 11:12] VITALS: BP 133/64; PULSE 82; RESP 18; TEMP 36.9; O2SAT 97
--- NOTE | 2020-11-07 11:49 | MHC.CM.PN ---
pt dcd home with no skilled servceis orderd by
--- NOTE | 2020-11-07 13:17 | PM.DS ---
DS: Providers Provider Date of Service: 11/07/20 Date of admission: 11/04/20 23:17 Primary care physician: Mason Lopez MD Consults: 11/05/20 00:56 Consult to Cardiology Routine Consulting Provider: Sharad Vazquez Reason for consultation: CHF, pericardial effusion Has provider been notified: No Consult to Nephrology Routine Consulting Provider: [facility] Reason for consultation: ESRD,volume overload Has provider been notified: No DS: Diagnosis Discharge Diagnosis (1) Pneumonia: Status: Acute (2) Anemia: Status: Acute (3) CHF exacerbation: Status: Acute (4) Uncontrolled hypertension: Status: Acute (5) Pericardial effusion: Status: Acute (6) ESRD on dialysis: Status: Acute DS: Summary Hospital Course Hospital Course: Admission note HPI 60-year-old Frisian-speaking only with past medical history of end-stage renal disease on dialysis Wednesday and , diabetes, hypertension, hypothyroidism who presents to the hospital with complaints of shortness of breath for 2 weeks.? Patient reports that her symptoms started 2 weeks ago, that has been worsened over the past few days, she denies any cough, denies any phlegm, she has chills and some subjective fevers, no nausea vomiting, no chest pain, no palpitations, she feels like burning in her chest mostly with coughing, denies any abdominal pain, no diarrhea constipation, no urinary symptoms and no lower extremity edema.? She denies any dizziness, no headache, no numbness tingling or weakness.? Patient denies missing any of her dialysis session and reports that she had dialysis earlier prior to coming to the hospital. On arrival to the ED patient home vitals significant for temp of 98.4?, heart rate of 85, respiratory rate of 18, blood pressure 152/70, satting 96% on room air For WBC count 13.4, hemoglobin of 9.2 which is significantly higher than her baseline, BUN of 19, creatinine of 4, glucose of 137, calcium 7.7, BNP of 2122, troponin less than 3.5, UA positive for protein, glucose, and blood, COVID-19 negative Left lower lobe consolidation with small to moderate underlying left and right pleural effusion.? Moderate pericardial few Hospital course Patient was admitted to the hospital for evaluation of difficulty breathing. CT scan of the chest was consistent with fluid overload, pericardial effusion and pneumonia. The patient was treated with IV antibiotics along with IV Lasix. His blood cultures remain negative as the shortness of breath significantly improved. Evaluated by cardiology team who did an echo which showed moderate pericardial effusion which was asymptomatic recommended medical treatment and avoid any interventions hip with recommendation to follow-up as outpatient for ischemic workup. Evaluated by Nephrology team as dialysis was resumed during the hospital stay with fair response. Blood pressure was noted to be significantly elevated. Hydralazine was increased to 100 mg t.i.d. with addition of amlodipine 2.5 mg daily. Continue azithromycin and Ceftin as prescribed Increase hydralazine to 100 mg 3 times a day Start amlodipine 2.5 mg daily, to monitor blood pressure and report readings to PCP or Nephrology Start daily Lasix To follow up with Cardiology as outpatient with a plan for ischemic workup Time Spent with Patient Time attestation: Total time spent providing and/or coordinating discharge services: Discharge coordination time: Greater than 30 minutes Quality: Stroke Does the patient have a stroke diagnosis?: No Physical Exam Vital Signs: Vital Signs: Last Vital Signs Temp 98.4 F 11/07/20 11:12 Pulse 82 11/07/20 11:12 Resp 18 11/07/20 11:12 BP 133/64 11/07/20 11:12 Pulse Ox 97 11/07/20 11:12 Body Mass Index 34.3 Const: Other: Constitutional : Alert, oriented Neck : Normal inspection, Supple Cardiovascular : RRR, S1 S2, no lower extremity edema Respiratory : Decreased bilateral air entry, no wheezes, no crackles bilaterally Gastrointestinal: soft, lax, Normal bowel sounds, Non tender Skin : Warm, Dry Neurological : Alert & oriented x3, No focal deficit DS: Data Data Completed and Pending Completed studies during hospitalization [Text1]: Procedures Assistance with Respiratory Ventilation, Less than 24 Consecutive Hours, Continuous Positive Airway Pressure (08/19/20) Performance of Urinary Filtration, Intermittent, Less than 6 Hours Per Day (08/19/20) Labs on day of discharge: Laboratory Results - last 24 hr 11/06/20 11/06/20 11/07/20 14:00 16:04 05:50 POC Glucose 114 173 H B-Natriuretic Peptide 1647 H 11/07/20 11/07/20 07:57 10:53 POC Glucose 109 151 H B-Natriuretic Peptide Preliminary micro results at discharge 11/04/20 20:56 Blood Culture - Preliminary Blood - Venous No growth after 48 hours. 11/04/20 20:27 Blood Culture - Preliminary Blood - Venous No growth after 48 hours. Discharge Plan Discharge Patient Disposition: Home, Self-Care Discharge Diagnosis: Pneumonia CHF exacerbation Referrals: John,Mason Casarez MD [Primary Care Provider] - 1 Week Discharge Medications: New amlodipine 2.5 mg Tablet 2.5 mg PO DAILY 30 Days Qty: 30 RF: 0 azithromycin 500 mg tablet 500 mg PO DAILY 4 Days Qty: 4 RF: 0 cefuroxime axetil 250 mg tablet 250 mg PO DAILY Qty: 4 RF: 0 furosemide 40 mg tablet 40 mg PO DAILY Qty: 30 RF: 0 Continued atorvastatin 20 mg tablet 20 mg PO DAILY RF: 0 ondansetron HCl 4 mg tablet 4 mg PO DAILY PRN (Reason: nausea/vomiting) RF: 0 levothyroxine 75 mcg tablet 75 mcg PO DAILY RF: 0 prednisolone acetate 1 % drops,suspension 1 drp TID RF: 0 omeprazole 20 mg capsule,delayed release(DR/EC) 20 mg PO DAILY RF: 0 labetalol 300 mg tablet 300 mg PO BID RF: 0 insulin aspart U-100 [Novolog Flexpen U-100 Insulin] 100 unit/mL (3 mL) insulin pen 5 unit subcut TID RF: 0 Lantus Solostar U-100 Insulin 100 unit/mL (3 mL) insulin pen 18 unit subcut QAM RF: 0 sevelamer carbonate 800 mg tablet 800 mg PO DAILY RF: 0 Changed hydralazine 100 mg tablet 100 mg PO TID 30 Days Qty: 90 RF: 0 Discharge Orders: Discharge Order (Routine); Ordered 11/07/20 Ordered By: Gloria Tobar Diet: advance to usual diet Activity on Discharge: As tolerated Stand Alone Forms: Patient Portal Discharge page Care Plan Goals: Read below Health Concerns: Read below Plan of Treatment: You were admitted to the hospital for evaluation of difficulty breathing. Found to be in acute exacerbation of heart failure treated with IV Lasix with good response. Evaluated by Cardiology team as small amount of fluid were noticed around your heart. A CT scan of the chest was consistent with pneumonia that was treated with IV antibiotics with good response. Your blood pressure was noted to be significantly elevated and your home medications were adjusted with better controlled. Assessment: Continue azithromycin and Ceftin as prescribed Increase hydralazine to 100 mg 3 times a day Start amlodipine 2.5 mg daily, to monitor blood pressure and report readings to PCP or Nephrology Start daily Lasix To follow up with Cardiology as outpatient with a plan for ischemic workup
--- NOTE | 2020-11-08 12:24 | P.CDIR_ITS ---
Documented by User: Ketty Delarosa RN 11/08/20 12:28 Retrospective Query PHYSICIAN'S DOCUMENTATION REQUEST Date of Query: 11/08/20 1224 Patient Name: Joseph Olmstead Admit Date: 11/04/20 Dear Doctor, A review of the medical record indicates additional documentation may be needed. Please review below and update the documentation accordingly. Clinical Indicators: Risk Factors/Clinical Indicators/Treatments Admit with SOB, fever, nausea, vomiting BNP 2121 CT Chest: pleural effusions, moderate pericardial effusion Per Discharge Summary 11/07/20: evaluated by cardiology team who did an ECHO which showed moderate pericardial effusion which was asymptomatic Please provide further specificity regarding the most likely type and acuity of CHF you are evaluating, treating, or monitoring. Examples include: Type: * Systolic * Diastolic * Combined Systolic/Diastolic * Other ? please specify * Unable to determine Acuity: * Acute * Chronic * Acute on chronic * Unable to determine Use of terms such as suspected, likely, concern for, or probable (associated with a specific diagnosis that is being evaluated, monitored, or treated as if it exists) are acceptable and can be coded in the inpatient setting, when docum ented at the time of discharge. Thank you, eKtty Delarosa RN Extension: [phone] Please use your independent medical judgment in providing your response. THIS QUERY IS PART OF THE PERMANENT MEDICAL RECORD Documented by User: Gloria Tobar MD 01/01/21 07:15 Retrospective Query Provider Response: Acute-Chronic Diastolic CHF
== END 2020-11-07 13:58 | disposition home or self-care (01) | DRG 291 ==
LOC: HO.ED 22:49 → HO.EDOVER 11-05 00:01 → HO.IMC 11-05 01:10
PROVIDERS: Admitting Provider Internal Medicine; Emergency Provider Emergency Medicine; PCP Internal Medicine; Visit Provider Student in an Organized Health Care Education/Training Program
DX: I13.2 Hypertensive heart and chronic kidney disease with heart failure and with stage 5 chronic kidney disease, or end stage renal disease (principal); J18.9 Pneumonia, unspecified organism; N18.6 End stage renal disease; I50.33 Acute on chronic diastolic (congestive) heart failure; I30.9 Acute pericarditis, unspecified; D63.1 Anemia in chronic kidney disease; E11.22 Type 2 diabetes mellitus with diabetic chronic kidney disease; E03.9 Hypothyroidism, unspecified; E66.9 Obesity, unspecified; Z68.34 Body mass index [BMI] 34.0-34.9, adult; Z99.2 Dependence on renal dialysis; R19.7 Diarrhea, unspecified; Z20.822 Contact with and (suspected) exposure to COVID-19; Z79.4 Long term (current) use of insulin; Z79.890 Hormone replacement therapy; Z79.899 Other long term (current) drug therapy
CPT/HCPCS: 0241U; 36415; 71046; 71250; 80048; 81001; 82947; 83605; 83880; 84484; 85025; 85027; 87040; 87635; 90999; 93005; 93306; 94640; 99285; J0456; J0692; J0696; J1940; J2405; J3370

== ENCOUNTER 2020-11-17 14:56 | Inpatient (IN) | payer MEDICARE, SELFPAY ==
--- NOTE | ~2020-11-17 | XR_ITS ---
EXAMINATION: XR CHEST CLINICAL INFORMATION: Pneumonia COMPARISON: Previous chest x-ray most recent 11/18/2020 TECHNIQUE: Frontal view of the chest was obtained. FINDINGS: The cardiac silhouette is slightly enlarged but stable. Hilar and mediastinal contours are unremarkable. There is multilobar right-sided airspace disease. Taking into account difference in technique this is probably not appreciably changed. The left lung is clear. There is blunting at the left lateral costophrenic angle suggestive of small left pleural effusion or pleural thickening. There is no right pleural effusion. There is no pneumothorax. Bony structures are unremarkable. XR/XR chest 1V IMPRESSION: Multilobar right-sided airspace disease probably representing pneumonia. Taking into account difference in film technique this is probably not appreciably changed from recent exams.
--- NOTE | ~2020-11-17 | XR_ITS ---
EXAMINATION: XR CHEST CLINICAL INFORMATION: Follow-up after fluid removal. COMPARISON: Chest x-ray November 17, 2020 3:[address] chest November 04, 2020 TECHNIQUE: 2 views of the chest were obtained. FINDINGS: Persistent dense consolidation in the right hemithorax. Allowing for differences in technique does not appear to be substantial change since prior study of November 17, 2020. No significant opacification in the left hemithorax. There is persistent small volume left pleural effusion. There is no right pleural effusion. Heart size is mildly enlarged. XR/XR chest 2V IMPRESSION: Persistent diffuse dense opacification in the right hemithorax. Persistent small volume left pleural effusion.
--- NOTE | ~2020-11-17 | XR_ITS ---
EXAMINATION: XR CHEST CLINICAL INFORMATION: Shortness of breath. COMPARISON: Multiple priors, most recent CT chest dated 11/04/2020. TECHNIQUE: 2 views of the chest were obtained. FINDINGS: Diffuse, patchy airspace opacities throughout the right lung, new when compared to the prior examination. Small left and trace right-sided pleural effusions. No pneumothorax. Stable cardiomegaly. XR/XR chest 2V IMPRESSION: Diffuse, patchy airspace opacities throughout the right lung, new when compared to the prior examination. Stable small left and trace right-sided pleural effusions as well as stable cardiomegaly. Findings can be seen in the setting of CHF. An underlying infectious or inflammatory process could be considered in the appropriate clinical setting.
[2020-11-17 15:14] VITALS: BP 163/76; PULSE 85; RESP 22; TEMP 37.1; O2SAT 94; BMI 33.6
--- NOTE | 2020-11-17 15:19 | ECG_ITS ---
Test Reason : DYSPNEA Blood Pressure : / mmHG Vent. Rate : 083 BPM Atrial Rate : 083 BPM P-R Int : 152 ms QRS Dur : 132 ms QT Int : 428 ms P-R-T Axes : 050 058 -11 degrees QTc Int : 502 ms Normal sinus rhythm Right bundle branch block Abnormal ECG When compared with ECG of 04-NOV-2020 20:32, No significant change was found Referred By: Generic ED Physician Electronically Signed By:GREYSON SARAVIA
--- NOTE | 2020-11-17 16:37 | ED_ITS ---
HPI - SOB/Dyspnea General Chief Complaint: Dyspnea Stated Complaint: diff breathing Time Seen by Provider: 11/17/20 16:30 History of Present Illness HPI Narrative: Patient is a 60-year-old female with a history of congestive heart failure, end-stage renal disease, due on dialysis Wednesday. History of pneumonia. Recently was in the hospital for IV antibiotics. Positive coughing, shortness of breath chest tightness. Feels like a burning sensation. This is very similar to previous bouts. Patient never had a heart attack. No nausea no vomiting no diaphoresis. Feels short of breath. Patient has been compliant with antibiotics. She got her dialysis on Wednesday. Got down a dry weight. Patient has been noticing increasing swelling to the legs. History of being on Lasix. During the last admission patient had echocardiogram shows a normal ejection fraction. Related Data Home Medications Medication Instructions Recorded Confirmed atorvastatin 20 mg tablet 20 mg PO DAILY 11/04/20 11/04/20 insulin aspart U-100 100 unit/mL 5 unit SUBCUT TID 11/04/20 11/05/20 (3 mL) subcutaneous pen (Novolog Flexpen U-100 Insulin aspart) insulin glargine 100 unit/mL (3 18 unit SUBCUT QAM 11/04/20 11/05/20 mL) subcutaneous pen (Lantus Solostar U-100 Insulin) labetalol 300 mg tablet 300 mg PO BID 11/04/20 11/05/20 levothyroxine 75 mcg tablet 75 mcg PO DAILY 11/04/20 11/05/20 omeprazole 20 mg capsule,delayed 20 mg PO DAILY 11/04/20 11/05/20 release ondansetron HCl 4 mg tablet 4 mg PO DAILY PRN 11/04/20 11/05/20 prednisolone acetate 1 % eye 1 drp TID 11/04/20 11/05/20 drops,suspension sevelamer carbonate 800 mg tablet 800 mg PO DAILY 11/04/20 11/05/20 Previous Rx's Medication Instructions Recorded amlodipine 2.5 mg tablet 2.5 mg PO DAILY 30 Days #30 tab 11/07/20 azithromycin 500 mg tablet 500 mg PO DAILY 4 Days #4 tab 11/07/20 cefuroxime axetil 250 mg tablet 250 mg PO DAILY #4 tab 11/07/20 furosemide 40 mg tablet 40 mg PO DAILY #30 tab 11/07/20 hydralazine 100 mg tablet 100 mg PO TID 30 Days #90 tab 11/07/20 Allergies Allergy/AdvReac Type Severity Reaction Status Date / Time No Known Allergies Allergy Verified 11/17/20 15:14 Review of Systems Review of Systems: Positive shortness of breath No chest pain or diaphoresis All systems reviewed otherwise negative PMFSH Past Medical History Attestation statement: The following information was validated with the patient. Medical History Anemia Aortic stenosis Congestive heart failure End stage renal disease ESRD on dialysis GI bleed History of renal dialysis Hypercholesterolemia Hypertension Hypertensive cardiovascular disease Hypothyroid Type 2 diabetes mellitus with hyperglycemia Surgical History History of esophagogastroduodenoscopy (EGD) Hx of colonoscopy Hx of hysterectomy S/P NADEGE-BSO Family History Family History Mother Chronic kidney disease CAD (coronary artery disease) Father No problems noted. Sister Thyroid cancer Brother No problems noted. Daughter No problems noted. Daughter No problems noted. 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 Oriented X3. No acute distress. Eyes: Pupils equal, round and reactive to light. ENT: Pharynx normal. Neck: Normal inspection. Neck supple. No lymph nodes noted. No crepitus CVS: Normal heart rate and rhythm. Pulses normal. Normal S1 and S2 Respiratory: Diminished breath sounds bilaterally, wheezing noted. Abdomen: Soft and nontender. No rigidity. No distention. good BS x4 Skin: Skin warm and dry. Normal skin color. Normal skin turgor. Extremities: 2+ pitting edema in the lower extremity . Neurovascular intact to all extremities. No Lacerations. No Rash Neuro: Oriented X 3. No motor deficit. No sensory deficit. Moving all extermities. No slurred speech MDM - SOB/Dyspnea MDM Narrative Medical decision making narrative: Patient's creatinine elevated consistent with end-stage renal disease. Chest x-ray showed a new left sided infiltrate. Cult ures will be obtained. Antibiotic will be started. Vancomycin and cefepime given. Lactate is less than 1. No evidence for severe sepsis. Patient also have signs of potential congestive heart failure. Last time patient had an echo shows an EF of 60-65%. Will give patient 80 mg of Lasix as she is. Normally on 40 mg at home. Currently in guarded condition. Will admit for further evaluation as patient became hypoxic satting about 90% on room air. Lab Data Result diagrams: 11/17/20 16:25 11/17/20 16:25 Labs: Lab Results 11/17/20 11/17/20 11/17/20 Range/Units 16:25 16:25 16:25 WBC 11.7 H (4.8-10.8) X10*3/uL RBC 3.42 L (4.20-5.50) X10*6/uL Hgb 8.7 L (12.0-16.0) g/dl Hct 30.0 L (37-47) % MCV 87.7 (80-98) fL MCH 25.4 L (27.0-33.0) pg MCHC 29.0 L (31.0-35.0) g/dl RDW 19.7 H (11.0-16.0) % Plt Count 413 H (160-400) X10*3/uL MPV 10.1 (9.4-12.3) fL Immature Gran % (Auto) 0.9 H (0.0-0.4) % Neut % (Auto) 81.6 H (45-73) % Lymph % (Auto) 9.6 L (20-40) % [place] % (Auto) 5.8 (2-11) % Eos % (Auto) 1.6 (0-4) % Baso % (Auto) 0.5 (0-2) % Lymph # (Auto) 1.1 L (1.2-4.9) X10*3/uL [place] # (Auto) 0.7 (0.1-1.2) X10*3/uL Eos # (Auto) 0.2 (0.0-0.4) X10*3/uL Baso # (Auto) 0.1 (0.0-0.2) X10*3/uL Abs Immat Gran (auto) 0.10 H (0.00-0.03) X10*3/uL Absolute Neuts (auto) 9.6 H (2.0-8.3) X10*3/uL Absolute Nucleated RBC 0.030 H (0.0-0.012) X10*3/uL Nucleated RBC % (auto) 0.3 H (0.0-0.2) /100WBC VBG pH (7.32-7.43) VBG pCO2 mmHg VBG pO2 mmHg VBG HCO3 (22-26) mmol/L VBG O2 Saturation % VBG Base Excess mmol/L Sodium 140 (135-145) mmol/L Potassium 4.5 D (3.3-5.1) mmol/L Chloride 102 (96-108) mmol/L Carbon Dioxide 23 (22-29) mmol/L Anion Gap 20 (12-20) BUN 39 H (9-16) mg/dL Creatinine 6.32 H* (0.5-1.4) mg/dL Estim Creat Clear Calc 9.9 Estimated GFR 7 Random Glucose 156 H (60-115) mg/dL Lactic Acid (0.5-2.0) mmol/L Calcium 8.0 L D (8.4-10.2) mg/dL Magnesium 2.0 (1.6-2.6) mg/dL Total Bilirubin < 0.2 (0.0-1.0) mg/dL AST 20 D (5-31) U/L ALT 20 (0-31) U/L Alkaline Phosphatase 260 H (39-117) U/L B-Natriuretic Peptide 3254 H (<100) pg/mL Total Protein 6.6 (6.5-8.0) g/dL Albumin 3.3 L (3.5-5.0) g/dL COVID-19 (ALFRED) (Negative) COVID-19 Clin Com 11/17/20 11/17/20 11/17/20 Range/Units 16:25 16:50 17:18 WBC (4.8-10.8) X10*3/uL RBC (4.20-5.50) X10*6/uL Hgb (12.0-16.0) g/dl Hct (37-47) % MCV (80-98) fL MCH (27.0-33.0) pg MCHC (31.0-35.0) g/dl RDW (11.0-16.0) % Plt Count (160-400) X10*3/uL MPV (9.4-12.3) fL Immature Gran % (Auto) (0.0-0.4) % Neut % (Auto) (45-73) % Lymph % (Auto) (20-40) % [place] % (Auto) (2-11) % Eos % (Auto) (0-4) % Baso % (Auto) (0-2) % Lymph # (Auto) (1.2-4.9) X10*3/uL [place] # (Auto) (0.1-1.2) X10*3/uL Eos # (Auto) (0.0-0.4) X10*3/uL Baso # (Auto) (0.0-0.2) X10*3/uL Abs Immat Gran (auto) (0.00-0.03) X10*3/uL Absolute Neuts (auto) (2.0-8.3) X10*3/uL Absolute Nucleated RBC (0.0-0.012) X10*3/uL Nucleated RBC % (auto) (0.0-0.2) /100WBC VBG pH 7.42 (7.32-7.43) VBG pCO2 43 mmHg VBG pO2 78 mmHg VBG HCO3 28 H (22-26) mmol/L VBG O2 Saturation 93.0 % VBG Base Excess 3.6 mmol/L Sodium (135-145) mmol/L Potassium (3.3-5.1) mmol/L Chloride (96-108) mmol/L Carbon Dioxide (22-29) mmol/L Anion Gap (12-20) BUN (9-16) mg/dL Creatinine (0.5-1.4) mg/dL Estim Creat Clear Calc Estimated GFR Random Glucose (60-115) mg/dL Lactic Acid 0.9 (0.5-2.0) mmol/L Calcium (8.4-10.2) mg/dL Magnesium (1.6-2.6) mg/dL Total Bilirubin (0.0-1.0) mg/dL AST (5-31) U/L ALT (0-31) U/L Alkaline Phosphatase (39-117) U/L B-Natriuretic Peptide (<100) pg/mL Total Protein (6.5-8.0) g/dL Albumin (3.5-5.0) g/dL COVID-19 ([facility]FR[facility]) Negative (Negative) COVID-19 Clin Com See Note Discharge Plan Discharge Clinical Impression: CHF (congestive heart failure), Pneumonia Patient Disposition: Admitted As Inpatient Prescriptions: No Action atorvastatin 20 mg tablet 20 mg PO DAILY RF: 0 ondansetron HCl 4 mg tablet 4 mg PO DAILY PRN (Reason: nausea/vomiting) RF: 0 levothyroxine 75 mcg tablet 75 mcg PO DAILY RF: 0 prednisolone acetate 1 % drops,suspension 1 drp TID RF: 0 omeprazole 20 mg capsule,delayed release(DR/EC) 20 mg PO DAILY RF: 0 labetalol 300 mg tablet 300 mg PO BID RF: 0 insulin aspart U-100 [Novolog Flexpen U-100 Insulin] 100 unit/mL (3 mL) insulin pen 5 unit subcut TID RF: 0 Lantus Solostar U-100 Insulin 100 unit/mL (3 mL) insulin pen 18 unit subcut QAM RF: 0 sevelamer carbonate 800 mg tablet 800 mg PO DAILY RF: 0 amlodipine 2.5 mg Tablet 2.5 mg PO DAILY 30 Days Qty: 30 RF: 0 azithromycin 500 mg tablet 500 mg PO DAILY 4 Days Qty: 4 RF: 0 cefuroxime axetil 250 mg tablet 250 mg PO DAILY Qty: 4 RF: 0 hydralazine 100 mg tablet 100 mg PO TID 30 Days Qty: 90 RF: 0 furosemide 40 mg tablet 40 mg PO DAILY Qty: 30 RF: 0
[2020-11-17 16:38] LABS: MANUAL DIFF FLAG NO
[2020-11-17 16:44] LABS: Basophils Absolute Auto 0.1 X10*3/uL (0.0-0.2); Basophils Percent Auto 0.5 % (0-2); Eosinophils Absolute Auto 0.2 X10*3/uL (0.0-0.4); Eosinophils Percent Auto 1.6 % (0-4); Hemoglobin 8.7 g/dl (12.0-16.0); Imm Gran Pct Auto 0.9 % (0.0-0.4); Lymphocytes Absolute Auto 1.1 X10*3/uL (1.2-4.9); Lymphocytes Percent Auto 9.6 % (20-40); Mean Corpuscular Hemoglobin 25.4 pg (27.0-33.0); Mean Corpuscular Volume 87.7 fL (80-98); Mean Platelet Volume 10.1 fL (9.4-12.3); Monocytes Absolute Auto 0.7 X10*3/uL (0.1-1.2); Monocytes Percent Auto 5.8 % (2-11); NRBC Pct Auto 0.3 /100WBC (0.0-0.2); Neutrophils Absolute Auto 9.6 X10*3/uL (2.0-8.3); Neutrophils Percent Auto 81.6 % (45-73); Platelet Count 413 X10*3/uL (160-400); Red Blood Count 3.42 X10*6/uL (4.20-5.50); Red Cell Distribution Width 19.7 % (11.0-16.0); White Blood Count 11.7 X10*3/uL (4.8-10.8)
[2020-11-17] MEDS: cefEPime HCl 1 GM in 0.9 % Sodium Chloride 50 ML IV (16:51)
--- NOTE | 2020-11-17 16:58 | PC.NURSE ---
pt down to 85% RA with SOB while sitting up. pt put on 2L NC at this time. SpO2 improved to 93%. work of breathing decreased. aware.
[2020-11-17 17:07] LABS: COVID-19 Test Negative (Negative)
[2020-11-17 17:17] LABS: Lactic Acid 0.9 mmol/L (0.5-2.0)
[2020-11-17 17:23] LABS: VBG Base Excess 3.6 mmol/L; VBG HCO3 28 mmol/L (22-26); VBG pCO2 43 mmHg; VBG pH 7.42 (7.32-7.43); VBG pO2 78 mmHg
[2020-11-17 17:24] LABS: B Type Natriuretic Peptide 3254 pg/mL (<100)
[2020-11-17 17:25] LABS: Alanine Aminotransferase 20 U/L (0-31); Albumin Level 3.3 g/dL (3.5-5.0); Alkaline Phosphatase 260 U/L (39-117); Anion Gap 20 (12-20); Aspartate Amino Transferase 20 U/L (5-31); Bilirubin Total < 0.2 mg/dL (0.0-1.0); Blood Urea Nitrogen 39 mg/dL (9-16); Carbon Dioxide 23 mmol/L (22-29); Chloride 102 mmol/L (96-108); Glucose Random 156 mg/dL (60-115); Potassium 4.5 mmol/L (3.3-5.1); Sodium 140 mmol/L (135-145); Total Protein 6.6 g/dL (6.5-8.0)
[2020-11-17 17:43] LABS: Creatinine Clr Calc Pharmacy 9.9; Estimated Glomerular Filt Rate 7
[2020-11-17 17:45] LABS: Venous Blood Gas Refer to POC result
[2020-11-17] MEDS: Furosemide 100 MG/10 ML VIAL 80 MG IVPUSH (18:23)
[2020-11-17] MEDS: vancomycin HCL 1,000 MG in 0.9 % Sodium Chloride 250 ML 270 MG IV (18:23)
[2020-11-17 18:34] VITALS: BP 194/97; PULSE 92; RESP 18; O2SAT 96
--- NOTE | 2020-11-17 19:31 | PM.IMHP ---
History of Present Illness Date of Service: 11/17/20 Chief Complaint: Cough And shortness of breath 60-year-old female with a past medical history of hypertension, hyperlipidemia, diabetes, ESRD on hemodialysis, CHF diastolic; hypothyroidism; osteoarthritis, aortic stenosis, anemia, recent admission to the hospital for left-sided pneumonia presented to the hospital today with a chief complaint of cough and shortness of breath; patient reports that she has been having cough associated upper respiratory symptoms over the past few days. With his symptoms were not improving. Decided to come to the hospital for further evaluation. Patient also complains of mild gain in the weight. Patient reports that she has been complaint with home medications. Denies any chest pain or palpitations Denies any numbness tingling or focal weakness Denies any GI or symptoms. Review of all other systems is negative except mentioned above ER course: Per ER team patient on presentation noted to be mildly tachypneic, has rhonchi and crackles on exam; imaging consistent with right-sided pneumonia as well as concerns for pulmonary edema;. Admitted to the hospital for further management. [facility] Medical History (Updated 11/17/20 @ 19:32 by Lloyd Adams MD) Anemia Aortic stenosis Congestive heart failure End stage renal disease ESRD on dialysis GI bleed History of renal dialysis Hypercholesterolemia Hypertension Hypertensive cardiovascular disease Hypothyroid Type 2 diabetes mellitus with hyperglycemia Family History Mother Chronic kidney disease CAD (coronary artery disease) Father No problems noted. Sister Thyroid cancer Brother No problems noted. Daughter No problems noted. Daughter No problems noted. 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 Meds Allergies Allergy/AdvReac Type Severity Reaction Status Date / Time No Known Allergies Allergy Verified 11/17/20 15:14 Active Medications: Current Medications Acetaminophen (Acetaminophen 325 Mg Tablet) 650 mg PO Q6H PRN PRN Reason: Pain, Mild (Pain Scale 1-3) Enoxaparin Sodium (Enoxaparin Sodium 40 Mg/0.4 Ml Syringe) 40 mg SUBCUT Q24H LISSETH Furosemide (Furosemide 40 Mg/4 Ml Vial) 40 mg IVPUSH DAILY LISSETH; Protocol Vancomycin HCl 1,000 mg/ (Sodium Chloride) 270 mls @ 270 mls/hr IV Q12H LISSETH Cefepime HCl 1 gm/ Sodium (Chloride) 50 mls @ 100 mls/hr IV Q24H LISSETH Melatonin (Melatonin 3 Mg Tablet) 6 mg PO BEDTIME PRN PRN Reason: Insomnia Pharmacy Consult (Consult Rx Vancomycin Dosing) 1 each MISCELLANE DAILY PRN PRN Reason: Consult order Pharmacy Consult (Consult Rx Vancomycin Dosing) 1 each MISCELLANE DAILY PRN PRN Reason: Consult order Senna (Sennosides 8.6 Mg Tablet) 17.2 mg PO BEDTIME PRN PRN Reason: Constipation Sodium Chloride (0.9 % Sodium Chloride Flush 3 Ml Syringe) 3 ml IVFLUSH QSHIFT [facility] Home Medications Medication Instructions Recorded Confirmed Last Taken Type atorvastatin 20 mg tablet 20 mg PO DAILY 11/04/20 11/04/20 Unknown History insulin aspart U-100 100 unit/mL 5 unit SUBCUT TID 11/04/20 11/05/20 Unknown History (3 mL) subcutaneous pen (Novolog Flexpen U-100 Insulin aspart) insulin glargine 100 unit/mL (3 18 unit SUBCUT QAM 11/04/20 11/05/20 Unknown History mL) subcutaneous pen (Lantus Solostar U-100 Insulin) labetalol 300 mg tablet 300 mg PO BID 11/04/20 11/05/20 Unknown History levothyroxine 75 mcg tablet 75 mcg PO DAILY 11/04/20 11/05/20 Unknown History omeprazole 20 mg capsule,delayed 20 mg PO DAILY 11/04/20 11/05/20 Unknown History release ondansetron HCl 4 mg tablet 4 mg PO DAILY PRN 11/04/20 11/05/20 Unknown History prednisolone acetate 1 % eye 1 drp TID 11/04/20 11/05/20 Unknown History drops,suspension sevelamer carbonate 800 mg tablet 800 mg PO DAILY 11/04/20 11/05/20 Unknown History Physical Exam Vital Signs and Narrative: Vital Signs: Last Vital Signs Temp 98.7 F 11/17/20 15:14 Pulse 92 11/17/20 18:34 Resp 18 11/17/20 18:34 BP 194/97 H 11/17/20 18:34 Pulse Ox 96 11/17/20 18:34 Body Mass Index 33.6 Gen: Appears be in no acute distress HEENT: NCAT, Moist mucosa. Pulmonary: Coarse breath sounds, slightly decreased at the bases; crackles heard CVS: Normal S1-S2 Abdomen: BS+, Soft, Nontender Extremities: Warm well perfused; 2+ pitting edema Neuro: Alert and awake. Results Labs CBC and Chem 7: 11/17/20 16:25 11/17/20 16:25 Labs: Laboratory Results - last 24 hr 11/17/20 11/17/20 11/17/20 16:25 16:25 16:25 MCV 87.7 MCH 25.4 L MCHC 29.0 L RDW 19.7 H Plt Count 413 H MPV 10.1 Immature Gran % (Auto) 0.9 H Neut % (Auto) 81.6 H Lymph % (Auto) 9.6 L [place] % (Auto) 5.8 Eos % (Auto) 1.6 Baso % (Auto) 0.5 Lymph # (Auto) 1.1 L [place] # (Auto) 0.7 Eos # (Auto) 0.2 Baso # (Auto) 0.1 Abs Immat Gran (auto) 0.10 H Absolute Neuts (auto) 9.6 H Absolute Nucleated RBC 0.030 H Nucleated RBC % (auto) 0.3 H VBG pH VBG pCO2 VBG pO2 VBG HCO3 VBG O2 Saturation VBG Base Excess Anion Gap 20 Estim Creat Clear Calc 9.9 Estimated GFR 7 Random Glucose 156 H Lactic Acid Calcium 8.0 L D Magnesium 2.0 Total Bilirubin < 0.2 AST 20 D ALT 20 Alkaline Phosphatase 260 H B-Natriuretic Peptide 3254 H Total Protein 6.6 Albumin 3.3 L COVID-19 (ALFRED) COVID-19 Clin Com 11/17/20 11/17/20 11/17/20 16:25 16:50 17:18 MCV MCH MCHC RDW Plt Count MPV Immature Gran % (Auto) Neut % (Auto) Lymph % (Auto) [place] % (Auto) Eos % (Auto) Baso % (Auto) Lymph # (Auto) [place] # (Auto) Eos # (Auto) Baso # (Auto) Abs Immat Gran (auto) Absolute Neuts (auto) Absolute Nucleated RBC Nucleated RBC % (auto) VBG pH 7.42 VBG pCO2 43 VBG pO2 78 VBG HCO3 28 H VBG O2 Saturation 93.0 VBG Base Excess 3.6 Anion Gap Estim Creat Clear Calc Estimated GFR Random Glucose Lactic Acid 0.9 Calcium Magnesium Total Bilirubin AST ALT Alkaline Phosphatase B-Natriuretic Peptide Total Protein Albumin COVID-19 (ALFRED) Negative COVID-19 Clin Com See Note Imaging Radiologist's Impressions: Impressions Chest X-Ray 11/17/20 15:19 IMPRESSION: Diffuse, patchy airspace opacities throughout the right lung, new when compared to the prior examination. Stable small left and trace right-sided pleural effusions as well as stable cardiomegaly. Findings can be seen in the setting of CHF. An underlying infectious or inflammatory process could be considered in the appropriate clinical setting. Assessment and Plan (1) CHF (congestive heart failure): Status: Acute (2) Pneumonia: Status: Acute (3) Type 2 diabetes mellitus with hyperglycemia: Qualifiers: Diabetes mellitus predatory animal exterminator insulin use: with predatory animal exterminator use Qualified Code(s): E11.65 - Type 2 diabetes mellitus with hyperglycemia; Z79.4 - ocean transportation intermediary (current) use of insulin Status: Acute (4) ESRD on dialysis: Status: Acute 60-year-old female with a past medical history of hypertension, hyperlipidemia, diabetes, ESRD on hemodialysis, CHF diastolic; hypothyroidism; osteoarthritis, aortic stenosis, anemia, recent admission to the hospital for left-sided pneumonia presented to the hospital today with a chief complaint of cough and shortness of breath Healthcare associated pneumonia: Continue vanc and cefepime. Supplemental oxygen p.r.n.. Patient currently not in respiratory distress. Supportive care. Follow up cultures. Acute CHF exacerbation: Recent echocardiogram showed EF of 60-65% with pericardial effusion-moderate. Currently patient blood pressure is slightly on higher side; Chest x-ray showed stable cardiomegaly, trace pleural effusions, pulmonary edema. Continue Lasix 40 mg IV daily Cardiology consult further recommendations/repeat echocardiogram. Patient also due for follow-up with the Cardiology as outpatient for further ischemic workup. Daily weights and I's and O's Telemetry Cycle cardiac enzymes Hypertensive urgency: Patient was recently started on amlodipine 2.5 mg. Increase hydralazine to 100 mg daily. Continue home labetalol. Continue home doses for now Keep the labetalol 10 mg IV p.r.n. for blood pressure greater than 180/90. Diabetes: Hold insulin regimen. Insulin sliding scale for now. Follow fingerstick glucose. Adjust insulins as needed. ESRD: Fistula on the left arm has a good thrill. Nephrology consult History of hypothyroidism: Continue home levothyroxine From other chronic conditions, home medications will be continued DVT prophylaxis: Lovenox Code status: Full code Quality Stroke Does the patient have a stroke diagnosis?: No VTE Prior VTE?: No VTE Risk Level:: Medical - moderate - high VTE Device Contraindication: Treatment Not Indicated VTE Drug Contraindication: N/A - Med Ordered
[2020-11-17 19:41] VITALS: BP 184/81; PULSE 94; RESP 29; TEMP 37.4; O2SAT 92
--- NOTE | 2020-11-17 19:50 | PHA.PROG ---
Admission Date/Time: November 17, 2020 19:19 Indication: LYONS-Pneumonia Weight in k.183 kg Adjusted body weight in K.9 kg [place] body weight in K.4 kg Obesity Dosing Indication % IBW: N/A dose by random vanco level Serum Creatinine - Last 168 Hours 11/17/20 16:25 Creatinine 6.32 H* Estimated CrCl and GFR - Last 168 Hours 11/17/20 16:25 Estim Creat Clear Calc 9.9 Estimated GFR 7 Vancomycin Loading Dose: 1000 mg on 11/17 @ 18.38 Current Vancomycin Dosing Regimen: 750 mg Q48HR starting 11/18. Dose will be revaluated daily due to HD on ESRD Date and Time for next Vancomycin Level to be drawn: Random level 11/18 @ 1600 (post dialysis if HD occurs) Pharmacist Comments on Vancomycin Plan: Vanco dose will be reviewed daily due to ESRD. Random for 11/18 will be drawn post dialysis if pat has HD to adjust vancomycin dose Vanco 750 mg Q48H gives expected AUC of 467 with a trough of 16.3 as a starting point. Tiffanie Sotelo PharmD Vancomycin dosing will take advantage of [employer] as a clinical decision support tool that uses Bayesian modeling to calculate individual patient's pharmacokinetic parameters and forecast the patient's drug concentration time course with the target goal AUC 24 range of 400 - 600 mg/L/hr.
[2020-11-17 20:11] LABS: Troponin-I High Sensitivity < 3.5 ng/L (<3.5-17.0)
[2020-11-17 22:08] LABS: Glucose, Whole Blood 105 mg/dL (60-115)
[2020-11-18] VITALS (14 sets, daily range): BP systolic 125–182; BP diastolic 59–84; PULSE 80–97; RESP 15–20; TEMP 36.6–37.6; O2SAT 92–96
[2020-11-18 06:39] LABS: MANUAL DIFF FLAG NO
[2020-11-18 06:55] LABS: Basophils Absolute Auto 0.1 X10*3/uL (0.0-0.2); Basophils Percent Auto 0.5 % (0-2); Eosinophils Absolute Auto 0.1 X10*3/uL (0.0-0.4); Eosinophils Percent Auto 0.8 % (0-4); Hematocrit 29.7 % (37-47); Hemoglobin 8.6 g/dl (12.0-16.0); Imm Gran Abs Auto 0.09 X10*3/uL (0.00-0.03); Imm Gran Pct Auto 0.7 % (0.0-0.4); Lymphocytes Percent Auto 7.1 % (20-40); Mean Corpuscular Hemoglobin 25.1 pg (27.0-33.0); Mean Corpuscular Volume 86.8 fL (80-98); Mean Platelet Volume 10.3 fL (9.4-12.3); Monocytes Absolute Auto 0.7 X10*3/uL (0.1-1.2); Monocytes Percent Auto 4.9 % (2-11); NRBC Pct Auto 0.1 /100WBC (0.0-0.2); Neutrophils Absolute Auto 11.7 X10*3/uL (2.0-8.3); Platelet Count 415 X10*3/uL (160-400); Red Blood Count 3.42 X10*6/uL (4.20-5.50); Red Cell Distribution Width 19.8 % (11.0-16.0); White Blood Count 13.6 X10*3/uL (4.8-10.8)
[2020-11-18 07:03] LABS: Anion Gap 18 (12-20); Blood Urea Nitrogen 44 mg/dL (9-16); Calcium 8.3 mg/dL (8.4-10.2); Carbon Dioxide 25 mmol/L (22-29); Chloride 103 mmol/L (96-108); Glucose Random 153 mg/dL (60-115); Magnesium 1.9 mg/dL (1.6-2.6); Potassium 5.3 mmol/L (3.3-5.1); Sodium 141 mmol/L (135-145)
[2020-11-18 07:13] LABS: Creatinine Clr Calc Pharmacy 8.9; Estimated Glomerular Filt Rate 6
[2020-11-18 07:57] LABS: Glucose, Whole Blood 131 mg/dL (60-115)
[2020-11-18] MEDS: Levothyroxine Sodium 75 MCG TABLET PO (08:24)
[2020-11-18] MEDS: Sevelamer Carbonate Tablet 800 MG TABLET PO (08:24)
[2020-11-18] MEDS: hydrALAZINE HCl 50 MG TABLET 100 MG PO ×3 (08:25→21:18)
[2020-11-18] MEDS: Omeprazole 20 MG CAPSULE.DR PO (08:25)
[2020-11-18] MEDS: Furosemide 40 MG/4 ML VIAL IVPUSH (08:25)
[2020-11-18] MEDS: Atorvastatin Calcium 20 MG TABLET PO (08:26)
[2020-11-18] MEDS: Labetalol HCL 100 MG TABLET 300 MG PO ×2 (08:26→21:19)
[2020-11-18] MEDS: amLODIPine Besylate 2.5 MG TABLET PO (08:27)
[2020-11-18] MEDS: 0.9 % Sodium Chloride Flush 3 ML SYRINGE IVFLUSH ×2 (08:29→15:52)
--- NOTE | 2020-11-18 09:08 | PC.NURSE ---
Pt alert/oriented, sitting up at egde of bed without visible SOB however pt reports increased [place]. Sat 93% on 2lpm via nc, appears comfortable at this time. EJ to right neck patent. LAVF with +bruit and thrill. Last dialysis Wednesday per pt. No insulin coverage needed POC 131.
[2020-11-18] MEDS: prednisoLONE Acetate 1 % Oph Susp 5 ML DRPBTL 1 DROP EYE-BOTH ×3 (09:15→21:33)
--- NOTE | 2020-11-18 10:31 | PC.NURSE ---
Off unit for Dialysis
--- NOTE | 2020-11-18 10:41 | P.PNIM_ITS ---
Subjective Subjective Date of Service: 11/18/20 Interval History: Seen in f/u for SOB, CHF, ? PNA, still feel sob Review of Systems Gen: no fever Resp: + sob, no cough CV: no chest, no MOROCHO, no leg edema GI: No n/v, no abd pain Neuro: No confusion Physical Exam Vital Signs: Vital Signs: Last Vital Signs Temp 98.7 F 11/18/20 09:38 Pulse 86 11/18/20 09:38 Resp 19 11/18/20 09:38 BP 148/60 H 11/18/20 09:38 Pulse Ox 93 11/18/20 09:38 Body Mass Index 33.6 General: AO X 3, no acute distress Resp: rhonchi, rales at right basel CVS: S1,S2,RRR GI: +BS, NT, no distention Skin: No rash Neuro: motor grossly intact Psych: appropriate affect Objective Data Active Medications Acetaminophen (Acetaminophen 325 Mg Tablet) 650 mg PO Q6H PRN PRN Reason: Pain, Mild (Pain Scale 1-3) Amlodipine Besylate (Amlodipine Besylate 2.5 Mg Tablet) 2.5 mg PO DAILY [facility], [facility]; Protocol Last Admin: 11/18/20 08:27 Dose: 2.5 mg Documented by: LYN Atorvastatin Calcium (Atorvastatin Calcium 20 Mg Tablet) 20 mg PO DAILY [facility], [facility]1983 Last Admin: 11/18/20 08:26 Dose: 20 mg Documented by: LYN Dextrose (Dextrose 50 % 25 Gm/50 Ml Vial) 25 gm IVPUSH Q15M PRN; Protocol PRN Reason: per Hypoglycemia Standing Ord. Enoxaparin Sodium (Enoxaparin Sodium 40 Mg/0.4 Ml Syringe) 40 mg SUBCUT Q24H [facility], [facility] Last Admin: 11/17/20 23:56 Dose: Not Given Documented by: PARAG Non-Admin Reason: Patient Refused Furosemide (Furosemide 40 Mg/4 Ml Vial) 40 mg IVPUSH DAILY [facility], [facility]; Protocol Last Admin: 11/18/20 08:25 Dose: 40 mg Documented by: LYN Glucose (Glucose Gel 15 Gm Gel..Gram.) 15 gm PO Q15M PRN; Protocol PRN Reason: per Hypoglycemia Standing Ord. Hydralazine HCl (Hydralazine Hcl 50 Mg Tablet) 100 mg PO TID [facility], [facility]; Protocol Last Admin: 11/18/20 08:25 Dose: 100 mg Documented by: LYN Cefepime HCl 1 gm/ Sodium (Chloride) 50 mls @ 100 mls/hr IV Q24H [facility], [facility] Insulin Human Lispro (Insulin Lispro 100 Unit/Ml 3 Ml Vial) 0 unit SUBCUT QIDACHS [facility], [facility]; Protocol Last Admin: 11/18/20 08:30 Dose: Not Given Documented by: LYN Non-Admin Reason: No Insulin Coverage Labetalol HCl (Labetalol Hcl 100 Mg Tablet) 300 mg PO BID [facility], [facility]; Protocol Last Admin: 11/18/20 08:26 Dose: 300 mg Documented by: LYN Labetalol HCl (Labetalol Hcl 100 Mg/20 Ml Vial) 10 mg IVPUSH Q6H PRN PRN Reason: BP>180/90 Levothyroxine Sodium (Levothyroxine Sodium 75 Mcg Tablet) 75 mcg PO DAILY@0630 [facility], [facility] Last Admin: 11/18/20 08:24 Dose: 75 mcg Documented by: LYN Melatonin (Melatonin 3 Mg Tablet) 6 mg PO BEDTIME PRN PRN Reason: Insomnia Omeprazole (Omeprazole 20 Mg Capsule.Dr) 20 mg PO DAILY [facility], [facility] Last Admin: 11/18/20 08:25 Dose: 20 mg Documented by: LYN Pharmacy Consult (Consult Rx Vancomycin Dosing) 1 each MISCELLANE DAILY PRN PRN Reason: Consult order Prednisolone Acetate (Prednisolone Acetate 1 % Oph Susp 5 Ml Drpbtl) 1 drop EYE-BOTH TID [facility], [facility] Last Admin: 11/18/20 09:15 Dose: 1 drop Documented by: LYN Senna (Sennosides 8.6 Mg Tablet) 17.2 mg PO BEDTIME PRN PRN Reason: Constipation Sevelamer Carbonate (Sevelamer Carbonate Tablet 800 Mg Tablet) 800 mg PO DAILY [facility], [facility] Last Admin: 11/18/20 08:24 Dose: 800 mg Documented by: LYN Sodium Chloride (0.9 % Sodium Chloride Flush 3 Ml Syringe) 3 ml IVFLUSH QSHIFT [facility], [facility] Last Admin: 11/18/20 08:29 Dose: 3 ml Documented by: LYN Labs CBC & Chem 7: 11/18/20 06:12 11/18/20 06:12 Assessment and Plan (1) CHF exacerbation: Status: Resolved (2) Pericardial effusion: Status: Resolved (3) ESRD on dialysis: Status: Acute (4) Pneumonia: Status: Resolved Assessment and Plan: 60-year-old female with past medical history of ESRD on dialysis, diabetes and hypertension presents to the hospital with complaints of shortness of breath found to have pneumonia as well as volume overload secondary to CHF exacerbation # community-acquired pneumonia--finding on CXR maybe d/t fluid overload from fluid overload -Continue Cefepime, hold Vancofor now, repeat imaging after dialysis to see if truly PNA # CHF exacerbation elevated BNP, and pleural effusion on chest CT she still produces urine Continue Lasix 40 IV b.i.d. Echo showed moderate pericardial effusion, asymptomatic Cardiology input appreciated, treat medically and avoid interventions for now low-sodium diet, daily weight, strict diet # pericardial effusion Possibly secondary to her history of ESRD Echo to further assess # ESRD on dialysis MWF Nephrology for dialysis while inpatient # HTN--continue Norvasc and Hydralazine # dibetes continue home and insulin low-dose sliding scale insulin diabetic diet # hypothyroidism continue home levothyroxine DVT prophylaxis: Heparin subQ Quality Stroke Does the patient have a stroke diagnosis?: No VTE Prior VTE?: No VTE Risk Level:: Medical - moderate - high VTE Device Contraindication: Treatment Not Indicated VTE Drug Contraindication: N/A - Med Ordered
--- NOTE | 2020-11-18 11:34 | W.PM.DNNEP ---
Subjective Subjective This patient was seen during dialysis. Interval history: Seen in f/u for SOB, CHF, ? PNA, still feel sob Physical Exam Vital Signs: Vital Signs: Last Vital Signs Temp 98.7 F 11/18/20 09:38 Pulse 86 11/18/20 09:38 Resp 19 11/18/20 09:38 BP 148/60 H 11/18/20 09:38 Pulse Ox 93 11/18/20 09:38 Body Mass Index 33.6 oral moist mucosa lungs decreased both sides increased wheezes R>L s1s2 abd soft nt ext + edema neuro nonfocal Assessment & Plan Assessment and plan (1) CHF (congestive heart failure): Status: Acute Assessment and Plan: HD and ultrafiltation to optmize fluid status (2) ESRD on dialysis: Status: Acute Assessment and Plan: HD and ultrafiltation to optmize fluid status (3) Pneumonia: Status: Acute Assessment and Plan: ?HCP agree with IV Antbx (4) Hypertension: Status: Acute Assessment and Plan: suggest increase labetalol to 300 mg PO TID, increase amlodipine to 5 mg daily at bedtime, keep hydralazine consider addition of isosorbide, keep diuretics on days OFF dialysis furosemide 80 mg BID on and Wednesday Assessment and Plan: HD as planned Time Spent With Patient Time: Total time spent is greater than 50% in coordination of care (as documented) at patient's floor/unit and/or counseling patient: Procedures Date of Service Date of Service: 11/18/20
--- NOTE | 2020-11-18 12:12 | CONS_ITS ---
DATE OF SERVICE: 11/18/2020 REASON FOR CONSULTATION: Evaluation of ESRD, on intermittent hemodialysis, admitted with shortness of breath. HISTORY OF PRESENT ILLNESS: Ms. Olmstead is a very pleasant 60-year-old female, who has a history of end-stage kidney disease secondary to diabetic nephropathy and hypertensive nephrosclerosis, on intermittent hemodialysis on Wednesday, Wednesday, and Wednesday, who was admitted for increased shortness of breath and cough. The patient reports that she had her regular dialysis treatment on Wednesday. She had fluid removed for an estimated dry weight of 90.5 kg. In fact, she left below her dry weight at 90.2 kg, she felt shortness of breath and cough yesterday on Wednesday, she is due for regular dialysis today. She came to the emergency room, where she was found with increased shortness of breath with chest x-ray consistent with congestive heart failure. She was given 80 mg of IV Lasix, and her oxygen saturation was 90% on room air. Chest x-ray also revealed the presence of a new left-sided infiltrate. She was given vancomycin and cefepime IV. As a result of increased shortness of breath in the setting of ESRD, the patient is due for dialysis today and Renal consultation was requested. PAST MEDICAL HISTORY: ESRD, hypertension, type 2 diabetes mellitus, hyperlipidemia, hypothyroidism, and recent discharge from the hospital after an episode of pneumonia. Recent echocardiogram showed mild aortic stenosis, LVEF of 60% to 65%. MEDICATIONS: On recent admission, her antihypertensive regimen was adjusted including labetalol and amlodipine, were added to the regimen. Rest of the medicines reviewed as per medical record. ALLERGIES: NO KNOWN DRUG ALLERGIES. SOCIAL HISTORY: Lives at home by herself. Denies history of smoking cigarettes or drinking alcohol. REVIEW OF SYSTEMS: Denies any fever, chills, hemoptysis, hematemesis, or bright red blood per rectum. Rest of the 10-point review of systems is negative. PHYSICAL EXAMINATION: GENERAL: She is alert, in minor distress. VITAL SIGNS: Her blood pressure is 188/92, heart rate of 74 per minute, and oxygen saturation is up to 96% on 2 L nasal cannula. HEENT: Oral, moist mucosa. NECK: No jugular venous distention. LUNGS: Decreased breath sounds bilaterally. Left side wheezing is noted. HEART: S1 and S2. No S3. No S4. No murmurs or rubs that I can appreciate. ABDOMEN: Soft, nontender, and nondistended. EXTREMITIES: Trace ankle edema. Left upper extremity AV fistula. NEUROLOGIC: Nonfocal. LABORATORY DATA: Her hemoglobin is 8.7. Potassium 4.5. Chest x-ray, which revealed diffuse patchy airspace opacities throughout the right lung and pleural effusions. IMPRESSIONS: Ms. Olmstead is a very pleasant 60-year-old woman with longstanding history of type 2 diabetes mellitus, hypertensive disease with end-stage renal disease, on intermittent hemodialysis, admitted to the hospital for increased shortness of breath and cough. Workup is consistent with both pneumonia and congestive heart failure along with this significant progressive hypertension. 1. Hypertensive disorder. I agree that she would need dialysis today, in addition recent doses of antihypertensives were adjusted. I would suggest to increase the dose of labetalol to 300 mg 3 times a day. Continue with hydralazine as you are doing. Increase the dose of amlodipine to 5 mg daily and consider the addition of isosorbide. Strict low-sodium diet. Continue with diuretics on the days off dialysis. Suggest furosemide 80 mg twice daily on Wednesday, , Wednesday, and Wednesday. 2. End-stage renal disease. As mentioned above, we will go ahead and arrange dialysis treatment today. Dialysis nurse and team aware of the plans. 3. Regarding pneumonia. As the patient was recently discharged from the hospital, there was concern for hospital-acquired pneumonia. I agree with IV antibiotics and consider Pulmonary consult. 4. Continue with her phosphate binders and regular outpatient medication regimen. We will continue to follow during the hospital stay. MD NEVIN Espino/DREA / [phone] ASHLEY
--- NOTE | 2020-11-18 12:27 | PM.CNCAR ---
History of Present Illness History of Present Illness Date of Service: 11/18/20 Requesting physician: Lloyd Adams Chief complaint: SOB Narrative: Pleasant 60 year female who recently had pneumonia and was discharged home from [facility]. She said she started feeling shortness of breath and decided to come back to the emergency department. Chest x-ray on admission showed right-sided infiltrate with differential monitor versus unilateral pulmonary edema. She has been started on antibiotics. She is denying any fevers or chills. She is saying off and on she gets some burning chest discomfort. She has not missed hemodialysis. She has been taking medications regularly. Blood pressure on admission was elevated. Labs and EKGs reviewed. Imaging reviewed. Review of Systems Review of Systems: Shortness of breath. [facility] Past Medical History Medical History (Updated 11/18/20 @ 11:36 by Alexander Ferro MD) Anemia Aortic stenosis Congestive heart failure End stage renal disease ESRD on dialysis GI bleed History of renal dialysis Hypercholesterolemia Hypertension Hypertensive cardiovascular disease Hypothyroid Type 2 diabetes mellitus with hyperglycemia Family History Family History Mother Chronic kidney disease CAD (coronary artery disease) Father No problems noted. Sister Thyroid cancer Brother No problems noted. Daughter No problems noted. Daughter No problems noted. Surgical History Surgical History History of esophagogastroduodenoscopy (EGD) Hx of colonoscopy Hx of hysterectomy S/P NADEGE-BSO Social History Social History Household Members: Spouse Housing: House Do you presently have visiting nurse or other home services: No Alcohol intake: never Patient Tobacco Use Status: Never used Tobacco e-Cigarette/Vaping Use: Never Used Second Hand Smoke Exposure: No Use of substances other than those prescribed or required for medical reasons: No Advance Directives: Yes Advance Directives on File: Yes Advance Directives Date on File: 08/19/20 service: No Current occupational status: disabled 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 Meds Allergies Allergy/AdvReac Type Severity Reaction Status Date / Time No Known Allergies Allergy Verified 11/17/20 15:14 Active Medications: Current Medications Acetaminophen (Acetaminophen 325 Mg Tablet) 650 mg PO Q6H PRN PRN Reason: Pain, Mild (Pain Scale 1-3) Amlodipine Besylate (Amlodipine Besylate 2.5 Mg Tablet) 2.5 mg PO DAILY [facility]; Protocol Last Admin: 11/18/20 08:27 Dose: 2.5 mg Documented by: Atorvastatin Calcium (Atorvastatin Calcium 20 Mg Tablet) 20 mg PO DAILY [facility] Last Admin: 11/18/20 08:26 Dose: 20 mg Documented by: Dextrose (Dextrose 50 % 25 Gm/50 Ml Vial) 25 gm IVPUSH Q15M PRN; Protocol PRN Reason: per Hypoglycemia Standing Ord. Enoxaparin Sodium (Enoxaparin Sodium 40 Mg/0.4 Ml Syringe) 40 mg SUBCUT Q24H [facility] Last Admin: 11/17/20 23:56 Dose: Not Given Documented by: Furosemide (Furosemide 40 Mg/4 Ml Vial) 40 mg IVPUSH DAILY [facility]; Protocol Last Admin: 11/18/20 08:25 Dose: 40 mg Documented by: Glucose (Glucose Gel 15 Gm Gel..Gram.) 15 gm PO Q15M PRN; Protocol PRN Reason: per Hypoglycemia Standing Ord. Hydralazine HCl (Hydralazine Hcl 50 Mg Tablet) 100 mg PO TID [facility]; Protocol Last Admin: 11/18/20 08:25 Dose: 100 mg Documented by: Cefepime HCl 1 gm/ Sodium (Chloride) 50 mls @ 100 mls/hr IV Q24H [facility] Insulin Human Lispro (Insulin Lispro 100 Unit/Ml 3 Ml Vial) 0 unit SUBCUT QIDACHS [facility]; Protocol Last Admin: 11/18/20 08:30 Dose: Not Given Documented by: Labetalol HCl (Labetalol Hcl 100 Mg Tablet) 300 mg PO BID [facility]; Protocol Last Admin: 11/18/20 08:26 Dose: 300 mg Documented by: Labetalol HCl (Labetalol Hcl 100 Mg/20 Ml Vial) 10 mg IVPUSH Q6H PRN PRN Reason: BP>180/90 Levothyroxine Sodium (Levothyroxine Sodium 75 Mcg Tablet) 75 mcg PO DAILY@0630 [facility] Last Admin: 11/18/20 08:24 Dose: 75 mcg Documented by: Lidocaine HCl (Lidocaine Hcl 1 % Mpf 2 Ml Ampul) 0.5 ml SUBCUT MOWEFR@1645 [facility] Melatonin (Melatonin 3 Mg Tablet) 6 mg PO BEDTIME PRN PRN Reason: Insomnia Omeprazole (Omeprazole 20 Mg Capsule.Dr) 20 mg PO DAILY [facility] Last Admin: 11/18/20 08:25 Dose: 20 mg Documented by: Pharmacy Consult (Consult Rx Vancomycin Dosing) 1 each MISCELLANE DAILY PRN PRN Reason: Consult order Prednisolone Acetate (Prednisolone Acetate 1 % Oph Susp 5 Ml Drpbtl) 1 drop EYE-BOTH TID [facility] Last Admin: 11/18/20 09:15 Dose: 1 drop Documented by: Senna (Sennosides 8.6 Mg Tablet) 17.2 mg PO BEDTIME PRN PRN Reason: Constipation Sevelamer Carbonate (Sevelamer Carbonate Tablet 800 Mg Tablet) 800 mg PO DAILY [facility] Last Admin: 11/18/20 08:24 Dose: 800 mg Documented by: Sodium Chloride (0.9 % Sodium Chloride Flush 3 Ml Syringe) 3 ml IVFLUSH QSHIFT [facility] Last Admin: 11/18/20 08:29 Dose: 3 ml Documented by: Home Medications Medication Instructions Recorded Confirmed Last Taken Type atorvastatin 20 mg tablet 20 mg PO DAILY 11/04/20 11/17/20 Unknown History insulin aspart U-100 100 unit/mL 5 unit SUBCUT TID 11/04/20 11/17/20 Unknown History (3 mL) subcutaneous pen (Novolog Flexpen U-100 Insulin aspart) insulin glargine 100 unit/mL (3 18 unit SUBCUT QAM 11/04/20 11/17/20 Unknown History mL) subcutaneous pen (Lantus Solostar U-100 Insulin) labetalol 300 mg tablet 300 mg PO BID 11/04/20 11/17/20 Unknown History levothyroxine 75 mcg tablet 75 mcg PO DAILY 11/04/20 11/17/20 Unknown History omeprazole 20 mg capsule,delayed 20 mg PO DAILY 11/04/20 11/17/20 Unknown History release ondansetron HCl 4 mg tablet 4 mg PO DAILY PRN 11/04/20 11/17/20 Unknown History prednisolone acetate 1 % eye 1 drp TID 11/04/20 11/17/20 Unknown History drops,suspension sevelamer carbonate 800 mg tablet 800 mg PO DAILY 11/04/20 11/17/20 Unknown History Physical Exam Vital Signs: Vital Signs: Last Vital Signs Temp 98.7 F 11/18/20 09:38 Pulse 86 11/18/20 09:38 Resp 19 11/18/20 09:38 BP 148/60 H 11/18/20 09:38 Pulse Ox 93 11/18/20 09:38 Body Mass Index 33.6 GENERAL APPEARANCE: in no acute distress, pleasant. NECK: no carotid bruit, no jugular venous distention. SKIN: no suspicious lesions, warm and dry. HEART: Ejection systolic murmur with preserved 2nd heart sound, regular rate and rhythm. LUNGS: Coarse breath sounds right lung with crackles at bases. ABDOMEN: soft, nontender. EXTREMITIES: no edema. PERIPHERAL PULSES: equal. NEUROLOGIC: No gross deficits, AAO X 3 Results Labs and Meds Result diagrams: 11/18/20 06:12 11/18/20 06:12 Lab results: Laboratory Results - last 24 hr 11/17/20 11/17/20 11/17/20 16:25 16:25 16:25 WBC 11.7 H RBC 3.42 L Hgb 8.7 L Hct 30.0 L MCV 87.7 MCH 25.4 L MCHC 29.0 L RDW 19.7 H Plt Count 413 H MPV 10.1 Immature Gran % (Auto) 0.9 H Neut % (Auto) 81.6 H Lymph % (Auto) 9.6 L Warren % (Auto) 5.8 Eos % (Auto) 1.6 Baso % (Auto) 0.5 Lymph # (Auto) 1.1 L Warren # (Auto) 0.7 Eos # (Auto) 0.2 Baso # (Auto) 0.1 Abs Immat Gran (auto) 0.10 H Absolute Neuts (auto) 9.6 H Absolute Nucleated RBC 0.030 H Nucleated RBC % (auto) 0.3 H VBG pH VBG pCO2 VBG pO2 VBG HCO3 VBG O2 Saturation VBG Base Excess Sodium 140 Potassium 4.5 D Chloride 102 Carbon Dioxide 23 Anion Gap 20 BUN 39 H Creatinine 6.32 H* Estim Creat Clear Calc 9.9 Estimated GFR 7 POC Glucose Random Glucose 156 H Lactic Acid Calcium 8.0 L D Magnesium 2.0 Total Bilirubin < 0.2 AST 20 D ALT 20 Alkaline Phosphatase 260 H Troponin I High Sens B-Natriuretic Peptide 3254 H Total Protein 6.6 Albumin 3.3 L COVID-19 ([facility]) COVID-19 Clin Com 11/17/20 11/17/2011/17/21 16:25 16:50 17:18 WBC RBC Hgb Hct MCV MCH MCHC RDW Plt Count MPV Immature Gran % (Auto) Neut % (Auto) Lymph % (Auto) Warren % (Auto) Eos % (Auto) Baso % (Auto) Lymph # (Auto) Warren # (Auto) Eos # (Auto) Baso # (Auto) Abs Immat Gran (auto) Absolute Neuts (auto) Absolute Nucleated RBC Nucleated RBC % (auto) VBG pH 7.42 VBG pCO2 43 VBG pO2 78 VBG HCO3 28 H VBG O2 Saturation 93.0 VBG Base Excess 3.6 Sodium Potassium Chloride Carbon Dioxide Anion Gap BUN Creatinine Estim Creat Clear Calc Estimated GFR POC Glucose Random Glucose Lactic Acid 0.9 Calcium Magnesium Total Bilirubin AST ALT Alkaline Phosphatase Troponin I High Sens B-Natriuretic Peptide Total Protein Albumin COVID-19 ([facility]) Negative COVID-19 [employer] Com See Note 11/17/20 11/17/20 11/18/20 19:41 22:04 06:12 WBC RBC Hgb Hct MCV MCH MCHC RDW Plt Count MPV Immature Gran % (Auto) Neut % (Auto) Lymph % (Auto) Warren % (Auto) Eos % (Auto) Baso % (Auto) Lymph # (Auto) Warren # (Auto) Eos # (Auto) Baso # (Auto) Abs Immat Gran (auto) Absolute Neuts (auto) Absolute Nucleated RBC Nucleated RBC % (auto) VBG pH VBG pCO2 VBG pO2 VBG HCO3 VBG O2 Saturation VBG Base Excess Sodium Potassium Chloride Carbon Dioxide Anion Gap BUN Creatinine Cancelled Estim Creat Clear Calc Cancelled Estimated GFR Cancelled POC Glucose 105 Random Glucose Lactic Acid Calcium Magnesium 1.9 Total Bilirubin AST ALT Alkaline Phosphatase Troponin I High Sens < 3.5 B-Natriuretic Peptide Total Protein Albumin COVID-19 ([facility]) COVID-19 [employer] 11/18/20 11/18/20 11/18/20 06:12 06:12 07:23 WBC 13.6 H RBC 3.42 L Hgb 8.6 L Hct 29.7 L MCV 86.8 MCH 25.1 L MCHC 29.0 L RDW 19.8 H Plt Count 415 H MPV 10.3 Immature Gran % (Auto) 0.7 H Neut % (Auto) 86.0 H Lymph % (Auto) 7.1 L Warren % (Auto) 4.9 Eos % (Auto) 0.8 Baso % (Auto) 0.5 Lymph # (Auto) 1.0 L Warren # (Auto) 0.7 Eos # (Auto) 0.1 Baso # (Auto) 0.1 Abs Immat Gran (auto) 0.09 H Absolute Neuts (auto) 11.7 H Absolute Nucleated RBC 0.020 H Nucleated RBC % (auto) 0.1 VBG pH VBG pCO2 VBG pO2 VBG HCO3 VBG O2 Saturation VBG Base Excess Sodium 141 Potassium 5.3 H Chloride 103 Carbon Dioxide 25 Anion Gap 18 BUN 44 H Creatinine 7.06 H* Estim Creat Clear Calc 8.9 Estimated GFR 6 POC Glucose 131 H Random Glucose 153 H Lactic Acid Calcium 8.3 L Magnesium Total Bilirubin AST ALT Alkaline Phosphatase Troponin I High Sens B-Natriuretic Peptide Total Protein Albumin COVID-19 ([facility]) COVID-19 Clin Com Imaging Radiologist's impression: Impressions Chest X-Ray 11/17/20 15:19 IMPRESSION: Diffuse, patchy airspace opacities throughout the right lung, new when compared to the prior examination. Stable small left and trace right-sided pleural effusions as well as stable cardiomegaly. Findings can be seen in the setting of CHF. An underlying infectious or inflammatory process could be considered in the appropriate clinical setting. Assessment and Plan (1) Hypertension: Qualifiers: Hypertension type: primary hypertension Qualified Code(s): I10 - Essential (primary) hypertension Status: Acute (2) CHF (congestive heart failure): Status: Acute (3) Pneumonia: Status: Acute Pleasant 60 female with end-stage renal disease on hemodialysis who recently was admitted at [facility] with pneumonia and congestive heart failure presenting with shortness of breath. She has infiltrates in the right lung and has been started on antibiotics. Blood pressure was elevated on admission but improving somewhat. She is due for dialysis today. I think the dialyzed her and repeat a chest x-ray to see how his infiltrates look like after dialysis. Unilateral pulmonary edema is a possibility but is usually seen with severe mitral valve regurgitation. She had recent echocardiography which did not show mitral valve regurgitation but did show moderate aortic valve stenosis. Please titrate amlodipine if the blood pressure is still elevated after hemodialysis There was a plan to do ischemic evaluation on her as outpatient. We will plan that as she improves. Thank you for allowing me to participate in the care of your patient. Please feel free to contact me if you have any questions. Procedures Date of Service Date of Service: 11/18/20
[2020-11-18 16:26] LABS: Glucose, Whole Blood 122 mg/dL (60-115)
[2020-11-18] MEDS: cefEPime HCl 1 GM in 0.9 % Sodium Chloride 50 ML IV (16:39)
[2020-11-18 17:23] LABS: Vancomycin Random 8.5 mcg/mL (15-20)
[2020-11-18 20:38] LABS: Glucose, Whole Blood 137 mg/dL (60-115)
[2020-11-18] MEDS: Enoxaparin Sodium 40 MG/0.4 ML SYRINGE SUBCUT (21:18)
[2020-11-19] VITALS (11 sets, daily range): BP systolic 109–175; BP diastolic 53–80; PULSE 75–83; RESP 16–18; TEMP 36.1–36.8; O2SAT 95–97; BMI 35.4
[2020-11-19] MEDS: 0.9 % Sodium Chloride Flush 3 ML SYRINGE IVFLUSH ×3 (03:20→17:47)
[2020-11-19] MEDS: Levothyroxine Sodium 75 MCG TABLET PO (06:06)
[2020-11-19 06:31] LABS: Creatinine Clr Calc Pharmacy 13.3; Estimated Glomerular Filt Rate 9
[2020-11-19 07:13] LABS: Glucose, Whole Blood 140 mg/dL (60-115)
[2020-11-19] MEDS: Furosemide 40 MG/4 ML VIAL IVPUSH (08:07)
[2020-11-19] MEDS: Sevelamer Carbonate Tablet 800 MG TABLET PO (08:07)
[2020-11-19] MEDS: Labetalol HCL 100 MG TABLET 300 MG PO ×2 (08:07→20:51)
[2020-11-19] MEDS: hydrALAZINE HCl 50 MG TABLET 100 MG PO ×3 (08:07→20:50)
[2020-11-19] MEDS: Atorvastatin Calcium 20 MG TABLET PO (08:08)
[2020-11-19] MEDS: Omeprazole 20 MG CAPSULE.DR PO (08:08)
[2020-11-19] MEDS: prednisoLONE Acetate 1 % Oph Susp 5 ML DRPBTL 1 DROP EYE-BOTH ×3 (08:08→21:02)
[2020-11-19] MEDS: amLODIPine Besylate 2.5 MG TABLET PO (08:08)
--- NOTE | 2020-11-19 09:01 | P.CONPL_ITS ---
History of Present Illness History of Present Illness Consult date: 11/19/20 Chief complaint: SOB Narrative: This is a inpatient Pulmonary consultation. 60-year-old female with a past medical history of hypertension, hyperlipidemia, diabetes, ESRD on hemodialysis, CHF diastolic; hypothyroidism; osteoarthritis, aortic stenosis, anemia, recent admission to the hospital for left-sided pneumonia presented to the hospital today with a chief complaint of cough and shortness of breath; veronica ent reports that she has been having cough associated upper respiratory symptoms over the past few days.? With his symptoms were not improving. The patient states that initially when she became sick several weeks ago she was having fevers and a cough. At that point she did have a CT scan of the chest demonstrating a left lower lobe pneumonia infusions. Patient also a pericardial effusion. Subsequent to that the patient started developing worsening shortness of breath. But, her cough and fevers have improved. Now she is on oxygen supplementation. She has been aggressively diuresed without any significant improvement of the right-sided fluffy opacity suggesting some component of pneumonitis or alveolar failing process. The patient is currently on cefepime. We will make sure to cover for atypical organisms. In regards of her renal failure the patient has not had a kidney biopsy that I am aware of or that she remembers. She denies any hemoptysis. She has never had anything like this before. Still pulmonary renal syndromes need to be in the differential. Therefore additional blood work will be requested. Review of Systems 2 Constitutional: Constitutional: Denies night sweats ENT: Denies change in voice, Denies lip swelling, Denies mouth pain and Denies tongue swelling Cardiovascular: Cardiovascular: Denies chest pain and Reports dyspnea Respiratory: Respiratory: Reports cough and Reports dyspnea Gastrointestinal: Gastrointestinal: Denies abdominal pain Musculoskeletal: Musculoskeletal: Denies no additional musculoskeletal complaints Neurologic: Denies Neuro-related abnormal movements Psychiatric: Psychiatric: Denies no additional psychiatric complaints Hematologic/Lymphatic: Hematologic/Lymphatic: Denies easy bleeding and Denies lymphadenopathy Allergic/Immunologic: Allergic/Immunologic: Denies lip swelling and Denies t ongue swelling PMFSH Past Medical History Medical History (Updated 11/19/20 @ 09:06 by John Blanco MD) Anemia Aortic stenosis Congestive heart failure End stage renal disease ESRD on dialysis GI bleed History of renal dialysis Hypercholesterolemia Hypertension Hypertensive cardiovascular disease Hypothyroid Type 2 diabetes mellitus with hyperglycemia Family History Family History Mother Chronic kidney disease CAD (coronary artery disease) Father No problems noted. Sister Thyroid cancer Brother No problems noted. Daughter No problems noted. Daughter No problems noted. 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 Meds Allergies Allergy/AdvReac Type Severity Reaction Status Date / Time No Known Allergies Allergy Verified 11/17/20 15:14 Active Medications: Current Medications Acetaminophen (Acetaminophen 325 Mg Tablet) 650 mg PO Q6H PRN PRN Reason: Pain, Mild (Pain Scale 1-3) Amlodipine Besylate (Amlodipine Besylate 2.5 Mg Tablet) 2.5 mg PO DAILY [facility]; Protocol Last Admin: 11/19/20 08:08 Dose: 2.5 mg Documented by: Atorvastatin Calcium (Atorvastatin Calcium 20 Mg Tablet) 20 mg PO DAILY [facility] Last Admin: 11/19/20 08:08 Dose: 20 mg Documented by: Dextrose (Dextrose 50 % 25 Gm/50 Ml Vial) 25 gm IVPUSH Q15M PRN; Protocol PRN Reason: per Hypoglycemia Standing Ord. Enoxaparin Sodium (Enoxaparin Sodium 40 Mg/0.4 Ml Syringe) 40 mg SUBCUT Q24H [facility] Last Admin: 11/18/20 21:18 Dose: 40 mg Documented by: Furosemide (Furosemide 40 Mg/4 Ml Vial) 40 mg IVPUSH DAILY [facility]; Protocol Last Admin: 11/19/20 08:07 Dose: 40 mg Documented by: Glucose (Glucose Gel 15 Gm Gel..Gram.) 15 gm PO Q15M PRN; Protocol PRN Reason: per Hypoglycemia Standing Ord. Hydralazine HCl (Hydralazine Hcl 50 Mg Tablet) 100 mg PO TID [facility]; Protocol Last Admin: 11/19/20 08:07 Dose: 100 mg Documented by: Cefepime HCl 1 gm/ Sodium (Chloride) 50 mls @ 100 mls/hr IV Q24H [facility] Last Infusion: 11/18/20 17:51 Dose: Infused Documented by: Doxycycline Hyclate 100 mg/ (Sodium Chloride) 250 mls @ 166.67 mls/hr IV Q12H [facility] Insulin Human Lispro (Insulin Lispro 100 Unit/Ml 3 Ml Vial) 0 unit SUBCUT QIDACHS [facility]; Protocol Last Admin: 11/19/20 07:56 Dose: Not Given Documented by: Labetalol HCl (Labetalol Hcl 100 Mg Tablet) 300 mg PO BID [facility]; Protocol Last Admin: 11/19/20 08:07 Dose: 300 mg Documented by: Labetalol HCl (Labetalol Hcl 100 Mg/20 Ml Vial) 10 mg IVPUSH Q6H PRN PRN Reason: BP>180/90 Levothyroxine Sodium (Levothyroxine Sodium 75 Mcg Tablet) 75 mcg PO DAILY@0630 [facility] Last Admin: 11/19/20 06:06 Dose: 75 mcg Documented by: Lidocaine HCl (Lidocaine Hcl 1 % Mpf 2 Ml Ampul) 0.5 ml SUBCUT MOWEFR@1645 [facility] Last Admin: 11/18/20 15:55 Dose: Not Given Documented by: Melatonin (Melatonin 3 Mg Tablet) 6 mg PO BEDTIME PRN PRN Reason: Insomnia Omeprazole (Omeprazole 20 Mg Capsule.Dr) 20 mg PO DAILY [facility] Last Admin: 11/19/20 08:08 Dose: 20 mg Documented by: Pharmacy Consult (Consult Rx Vancomycin Dosing) 1 each MISCELLANE DAILY PRN PRN Reason: Consult order Prednisolone Acetate (Prednisolone Acetate 1 % Oph Susp 5 Ml Drpbtl) 1 drop EYE-BOTH TID [facility] Last Admin: 11/19/20 08:08 Dose: 1 drop Documented by: Senna (Sennosides 8.6 Mg Tablet) 17.2 mg PO BEDTIME PRN PRN Reason: Constipation Sevelamer Carbonate (Sevelamer Carbonate Tablet 800 Mg Tablet) 800 mg PO DAILY [facility] Last Admin: 11/19/20 08:07 Dose: 800 mg Documented by: Sodium Chloride (0.9 % Sodium Chloride Flush 3 Ml Syringe) 3 ml IVFLUSH QSHIFT [facility] Last Admin: 11/19/20 08:07 Dose: 3 ml Documented by: Home Medications Medication Instructions Recorded Confirmed Last Taken Type atorvastatin 20 mg tablet 20 mg PO DAILY 11/04/20 11/17/20 Unknown History insulin aspart U-100 100 unit/mL 5 unit SUBCUT TID 11/04/20 11/17/20 Unknown History (3 mL) subcutaneous pen (Novolog Flexpen U-100 Insulin aspart) insulin glargine 100 unit/mL (3 18 unit SUBCUT QAM 11/04/20 11/17/20 Unknown Hi story mL) subcutaneous pen (Lantus Solostar U-100 Insulin) labetalol 300 mg tablet 300 mg PO BID 11/04/20 11/17/20 Unknown History levothyroxine 75 mcg tablet 75 mcg PO DAILY 11/04/20 11/17/20 Unknown History omeprazole 20 mg capsule,delayed 20 mg PO DAILY 11/04/20 11/17/20 Unknown History release ondansetron HCl 4 mg tablet 4 mg PO DAILY PRN 11/04/20 11/17/20 Unknown History prednisolone acetate 1 % eye 1 drp TID 11/04/20 11/17/20 Unknown History drops,suspension sevelamer carbonate 800 mg tablet 800 mg PO DAILY 11/04/20 11/17/20 Unknown History Physical Exam Vital Signs: Vital Signs: Last Vital Signs Temp 97.8 F 11/19/20 08:00 Pulse 83 11/19/20 08:08 Resp 18 11/19/20 08:00 BP 175/80 H 11/19/20 08:08 Pulse Ox 97 11/19/20 08:00 Body Mass Index 35.4 Const: General: alert Neck: Neck: Yes normal visual inspection, Yes full ROM and Yes no lymphadenopathy Chest: Chest palpation & inspection: normal inspection of the chest Resp: Auscultation: crackles on the left at the base, diminished lung sounds and bronchial breath sounds on the right Cardio: Rate: regular rate Rhythm: regular rhythm Heart sounds: S1 normal heart sound present, S2 normal heart sound present and Murmur heart sound present GI: Palpation (GI): Soft to palpation and nontender Auscultation: normal bowel sounds Skin: General skin exam: rashes and/or lesions noted Results Laboratory Findings CBC and BMP: 11/18/20 06:12 11/19/20 05:38 Abnormal lab findings: Abnormal Labs 11/17/20 11/17/20 11/17/20 16:25 16:25 16:25 WBC 11.7 H RBC 3.42 L Hgb 8.7 L Hct 30.0 L MCH 25.4 L MCHC 29.0 L RDW 19.7 H Plt Count 413 H Immature Gran % (Auto) 0.9 H Neut % (Auto) 81.6 H Lymph % (Auto) 9.6 L Lymph # (Auto) 1.1 L Abs Immat Gran (auto) 0.10 H Absolute Neuts (auto) 9.6 H Absolute Nucleated RBC 0.030 H Nucleated RBC % (auto) 0.3 H VBG HCO3 Potassium BUN 39 H Creatinine 6.32 H* POC Glucose Random Glucose 156 H Calcium 8.0 L D Alkaline Phosphatase 260 H B-Natriuretic Peptide 3254 H Albumin 3.3 L Random Vancomycin 11/17/20 11/18/20 11/18/20 17:18 06:12 06:12 WBC 13.6 H RBC 3.42 L Hgb 8.6 L Hct 29.7 L MCH 25.1 L MCHC 29.0 L RDW 19.8 H Plt Count 415 H Immature Gran % (Auto) 0.7 H Neut % (Auto) 86.0 H Lymph % (Auto) 7.1 L Lymph # (Auto) 1.0 L Abs Immat Gran (auto) 0.09 H Absolute Neuts (auto) 11.7 H Absolute Nucleated RBC 0.020 H Nucleated RBC % (auto) VBG HCO3 28 H Potassium 5.3 H BUN 44 H Creatinine 7.06 H* POC Glucose Random Glucose 153 H Calcium 8.3 L Alkaline Phosphatase B-Natriuretic Peptide Albumin Random Vancomycin 11/18/20 11/18/20 11/18/20 07:23 16:19 16:45 WBC RBC Hgb Hct MCH MCHC RDW Plt Count Immature Gran % (Auto) Neut % (Auto) Lymph % (Auto) Lymph # (Auto) Abs Immat Gran (auto) Absolute Neuts (auto) Absolute Nucleated RBC Nucleated RBC % (auto) VBG HCO3 Potassium BUN Creatinine POC Glucose 131 H 122 H Random Glucose Calcium Alkaline Phosphatase B-Natriuretic Peptide Albumin Random Vancomycin 8.5 L 11/18/20 11/19/20 11/19/20 20:34 05:38 07:09 WBC RBC Hgb Hct MCH MCHC RDW Plt Count Immature Gran % (Auto) Neut % (Auto) Lymph % (Auto) Lymph # (Auto) Abs Immat Gran (auto) Absolute Neuts (auto) Absolute Nucleated RBC Nucleated RBC % (auto) VBG HCO3 Potassium BUN Creatinine 4.83 H* POC Glucose 137 H 140 H Random Glucose Calcium Alkaline Phosphatase B-Natriuretic Peptide Albumin Random Vancomycin Microbiology: Microbiology 11/17/20 16:50 Blood - Venous Blood Culture - Preliminary No growth after 24 hours. 11/17/20 16:50 Blood - Venous Blood Culture - Preliminary No growth after 24 hours. Assessment and Plan (1) Pneumonia: Status: Acute (2) Pneumonitis: Status: Acute (3) Hypertension: Qualifiers: Hypertension type: primary hypertension Qualified Code(s): I10 - Essential (primary) hypertension Status: Acute Blood work to assess for infectious and inflammatory conditions Respiratory viral panel Continue keeping on the dry side in regards to the volume status Continue cefepime and will add doxycycline for atypical coverage. Okay to discontinue vancomycin while on doxycycline Continue oxygen supplementation to maintain a pulse ox of 90% Repeat chest x-ray tomorrow. If no better or worsening will need to have a repeat CT scan of the chest and consider bronchoscopy Procedures Date of Service Date of Service: 11/19/20
--- NOTE | 2020-11-19 09:01 | PM.PNCARD ---
Subjective Subjective Date of Service: 11/19/20 Principal diagnosis: PNA, CHF, ESRD on dialysis, HTN Interval history: Cardiology follow up for CHF eval, HTN. Seen at 0840. Today she states that she is feeling better than admit. She notices some sob with walking in room/ amor. Wearing O2 with nasal cannula. Does not wear O2 at home. No cough, sob at rest, PND. Slept with hob elevated some. No chest pains, palpitation, dizziness. Leg edema that was present on admit has resolved. Had dialysis yesterday and will have again tomorrow. Review of Systems Review of Systems as above Yes all other systems are reviewed and are negative Physical Exam Vital Signs: Last Vital Signs Temp 97.8 F 11/19/20 08:00 Pulse 83 11/19/20 08:08 Resp 18 11/19/20 08:00 BP 175/80 H 11/19/20 08:08 Pulse Ox 97 11/19/20 08:00 Body Mass Index 35.4 Const General: cooperative, no acute distress, alert and awake Orientation/consciousness: patient oriented x3 Neck Neck: Yes normal visual inspection and Yes JVD Resp Effort & Inspection: normal respiratory effort, able to speak in complete sentences and not labored Auscultation: clear to auscultation bilaterally, no rales, no rhonchi and no wheezes Cardio Jugular venous distension: JVD present Palpation: normal PMI Rate: regular rate Rhythm: regular rhythm Heart sounds: S1 normal heart sound present, S2 normal heart sound present and Murmur heart sound present (systolic) Peripheral pulses: Peripheral pulses 2+ throughout GI Inspection: Yes normal to inspection Neuro General: patient oriented x3 Extrem General: Yes normal to inspection and No edema Results Labs and Meds Result diagrams: 11/18/20 06:12 11/19/20 05:38 Lab results: Laboratory Results - last 24 hr 11/18/20 11/18/20 11/18/20 16:19 16:45 20:34 Creatinine Estim Creat Clear Calc Estimated GFR POC Glucose 122 H 137 H Random Vancomycin 8.5 L 11/19/20 11/19/20 05:38 07:09 Creatinine 4.83 H* Estim Creat Clear Calc 13.3 Estimated GFR 9 POC Glucose 140 H Random Vancomycin Imaging Radiologist's impression: Impressions Chest X-Ray 11/18/20 14:00 IMPRESSION: Persistent diffuse dense opacification in the right hemithorax. Persistent small volume left pleural effusion. Progress Note: A&P Assessment and plan (1) CHF (congestive heart failure): Status: Acute Assessment and Plan: Recent admit with PNA, CHF. Readmit with sob, edema and CXR with right infiltrate. BNP elevated at 3254. Echo 11/05/20 shows EF 60-65%, mod LVH, mod . Has been undergoing hemodialysis and had treatment yesterday with some improvement in her condition. Following with nephrology. On exam today has resolved edema and some improvement in breathing. Has JVD, which was noted last admit as well. Her CXR findings are unilateral and those findings are less likely to be CHF. Pulmonology is following for probably pulmonary condition. She can continue with hemodialysis as planned for fluid maintenance. She does need further cardiac evaluation and was already planning to have right and left heart cath done as outpt. Now with readmit for sob, CHF, PNA. We will follow along and consider transfer to [facility] for her cath when medically appropriate. (2) Pneumonia: Status: Acute (3) Hypertension: Status: Acute Assessment and Plan: Hx HTN. LVH on echo. BP elevated last admit and this admit. Amlodipine was added. BP 175/80 this am. Continue Lasix, hydralazine, labetalol and Amlodipine. Can increase Amlodipine if needed. (4) ESRD on dialysis: Status: Acute Fall Risk Details Current Medications: Current Medications Acetaminophen (Acetaminophen 325 Mg Tablet) 650 mg PO Q6H PRN PRN Reason: Pain, Mild (Pain Scale 1-3) Amlodipine Besylate (Amlodipine Besylate 2.5 Mg Tablet) 2.5 mg PO DAILY [facility]; Protocol Last Admin: 11/19/20 08:08 Dose: 2.5 mg Documented by: Atorvastatin Calcium (Atorvastatin Calcium 20 Mg Tablet) 20 mg PO DAILY [facility] Last Admin: 11/19/20 08:08 Dose: 20 mg Documented by: Dextrose (Dextrose 50 % 25 Gm/50 Ml Vial) 25 gm IVPUSH Q15M PRN; Protocol PRN Reason: per Hypoglycemia Standing Ord. Enoxaparin Sodium (Enoxaparin Sodium 40 Mg/0.4 Ml Syringe) 40 mg SUBCUT Q24H [facility] Last Admin: 11/18/20 21:18 Dose: 40 mg Documented by: Furosemide (Furosemide 40 Mg/4 Ml Vial) 40 mg IVPUSH DAILY [facility]; Protocol Last Admin: 11/19/20 08:07 Dose: 40 mg Documented by: Glucose (Glucose Gel 15 Gm Gel..Gram.) 15 gm PO Q15M PRN; Protocol PRN Reason: per Hypoglycemia Standing Ord. Hydralazine HCl (Hydralazine Hcl 50 Mg Tablet) 100 mg PO TID [facility]; Protocol Last Admin: 11/19/20 08:07 Dose: 100 mg Documented by: Cefepime HCl 1 gm/ Sodium (Chloride) 50 mls @ 100 mls/hr IV Q24H [facility] Last Infusion: 11/18/20 17:51 Dose: Infused Documented by: Doxycycline Hyclate 100 mg/ (Sodium Chloride) 250 mls @ 166.67 mls/hr IV Q12H [facility] Insulin Human Lispro (Insulin Lispro 100 Unit/Ml 3 Ml Vial) 0 unit SUBCUT QIDACHS [facility]; Protocol Last Admin: 11/19/20 07:56 Dose: Not Given Documented by: Labetalol HCl (Labetalol Hcl 100 Mg Tablet) 300 mg PO BID [facility]; Protocol Last Admin: 11/19/20 08:07 Dose: 300 mg Documented by: Labetalol HCl (Labetalol Hcl 100 Mg/20 Ml Vial) 10 mg IVPUSH Q6H PRN PRN Reason: BP>180/90 Levothyroxine Sodium (Levothyroxine Sodium 75 Mcg Tablet) 75 mcg PO DAILY@0630 [facility] Last Admin: 11/19/20 06:06 Dose: 75 mcg Documented by: Lidocaine HCl (Lidocaine Hcl 1 % Mpf 2 Ml Ampul) 0.5 ml SUBCUT MOWEFR@1645 [facility] Last Admin: 11/18/20 15:55 Dose: Not Given Documented by: Melatonin (Melatonin 3 Mg Tablet) 6 mg PO BEDTIME PRN PRN Reason: Insomnia Omeprazole (Omeprazole 20 Mg Capsule.Dr) 20 mg PO DAILY [facility] Last Admin: 11/19/20 08:08 Dose: 20 mg Documented by: Pharmacy Consult (Consult Rx Vancomycin Dosing) 1 each MISCELLANE DAILY PRN PRN Reason: Consult order Prednisolone Acetate (Prednisolone Acetate 1 % Oph Susp 5 Ml Drpbtl) 1 drop EYE-BOTH TID [facility] Last Admin: 11/19/20 08:08 Dose: 1 drop Documented by: Senna (Sennosides 8.6 Mg Tablet) 17.2 mg PO BEDTIME PRN PRN Reason: Constipation Sevelamer Carbonate (Sevelamer Carbonate Tablet 800 Mg Tablet) 800 mg PO DAILY [facility] Last Admin: 11/19/20 08:07 Dose: 800 mg Documented by: Sodium Chloride (0.9 % Sodium Chloride Flush 3 Ml Syringe) 3 ml IVFLUSH QSHIFT [facility] Last Admin: 11/19/20 08:07 Dose: 3 ml Documented by: Time Spent With Patient Time: Total time spent is greater than 50% in coordination of care (as documented) at patient's floor/unit and/or counseling patient: Time with patient: 15 - 24 minutes Progress Note: Quality Stroke Does the patient have a stroke diagnosis?: No Procedures Date of Service Date of Service: 11/19/20
--- NOTE | 2020-11-19 09:16 | MHC.CM.PN ---
CM met with Patient at bedside and addressed IMM, providing her with the original and placing a copy on the chart. Patient lives in an apartment with her and she uses a walker to assist with mobility. Patient states that she may need new O2 at time of dc; Home no services VS new [facility] is the goal and CM has initiated and will follow for dc planning.Daughter/Mary is the HCP and she transports Patient to HD at [facility] M/W/. PCP is Dr. Mason Lopez.
[2020-11-19 09:26] LABS: Erythrocyte Sedimentation Rate 66 MM/HR (0-20)
--- NOTE | 2020-11-19 10:01 | PM.PNCARD ---
Subjective Subjective Date of Service: 11/19/20 Principal diagnosis: PNA, CHF, ESRD on dialysis, HTN Interval history: Feeling better after hemodialysis yesterday. Blood pressure is elevated. No chest discomfort. Review of Systems Review of Systems No shortness of breath today Yes all other systems are reviewed and are negative Physical Exam Vital Signs: Last Vital Signs Temp 97.8 F 11/19/20 08:00 Pulse 83 11/19/20 08:08 Resp 18 11/19/20 08:00 BP 175/80 H 11/19/20 08:08 Pulse Ox 97 11/19/20 08:00 Body Mass Index 35.4 GENERAL APPEARANCE: in no acute distress, pleasant. NECK: no carotid bruit, no jugular venous distention. SKIN: no suspicious lesions, warm and dry. HEART:? Ejection systolic murmur with feeble 2nd heart sound, regular rate and rhythm. LUNGS:? Coarse breath sounds right lung with crackles at bases. ABDOMEN: soft, nontender. EXTREMITIES: no edema. PERIPHERAL PULSES: equal. NEUROLOGIC: No gross deficits, AAO X 3 Results Labs and Meds Result diagrams: 11/18/20 06:12 11/19/20 05:38 Lab results: Laboratory Results - last 24 hr 11/18/20 11/18/20 11/18/20 16:19 16:45 20:34 ESR Creatinine Estim Creat Clear Calc Estimated GFR POC Glucose 122 H 137 H Random Vancomycin 8.5 L 11/19/20 11/19/20 11/19/20 05:38 05:38 07:09 ESR 66 H Creatinine 4.83 H* Estim Creat Clear Calc 13.3 Estimated GFR 9 POC Glucose 140 H Random Vancomycin Imaging Radiologist's impression: Impressions Chest X-Ray 11/18/20 14:00 IMPRESSION: Persistent diffuse dense opacification in the right hemithorax. Persistent small volume left pleural effusion. Progress Note: A&P Assessment and plan (1) Hypertension: Status: Acute (2) ESRD on dialysis: Status: Acute (3) Pneumonitis: Status: Acute (4) CHF (congestive heart failure): Status: Acute Fall Risk Details Current Medications: Current Medications Acetaminophen (Acetaminophen 325 Mg Tablet) 650 mg PO Q6H PRN PRN Reason: Pain, Mild (Pain Scale 1-3) Amlodipine Besylate (Amlodipine Besylate 2.5 Mg Tablet) 2.5 mg PO DAILY [facility]; Protocol Last Admin: 11/19/20 08:08 Dose: 2.5 mg Documented by: Atorvastatin Calcium (Atorvastatin Calcium 20 Mg Tablet) 20 mg PO DAILY [facility] Last Admin: 11/19/20 08:08 Dose: 20 mg Documented by: Dextrose (Dextrose 50 % 25 Gm/50 Ml Vial) 25 gm IVPUSH Q15M PRN; Protocol PRN Reason: per Hypoglycemia Standing Ord. Enoxaparin Sodium (Enoxaparin Sodium 40 Mg/0.4 Ml Syringe) 40 mg SUBCUT Q24H [facility] Last Admin: 11/18/20 21:18 Dose: 40 mg Documented by: Furosemide (Furosemide 40 Mg/4 Ml Vial) 40 mg IVPUSH DAILY [facility]; Protocol Last Admin: 11/19/20 08:07 Dose: 40 mg Documented by: Glucose (Glucose Gel 15 Gm Gel..Gram.) 15 gm PO Q15M PRN; Protocol PRN Reason: per Hypoglycemia Standing Ord. Hydralazine HCl (Hydralazine Hcl 50 Mg Tablet) 100 mg PO TID [facility]; Protocol Last Admin: 11/19/20 08:07 Dose: 100 mg Documented by: Cefepime HCl 1 gm/ Sodium (Chloride) 50 mls @ 100 mls/hr IV Q24H [facility] Last Infusion: 11/18/20 17:51 Dose: Infused Documented by: Doxycycline Hyclate 100 mg/ (Sodium Chloride) 250 mls @ 166.67 mls/hr IV Q12H [facility] Insulin Human Lispro (Insulin Lispro 100 Unit/Ml 3 Ml Vial) 0 unit SUBCUT QIDACHS [facility]; Protocol Last Admin: 11/19/20 07:56 Dose: Not Given Documented by: Labetalol HCl (Labetalol Hcl 100 Mg Tablet) 300 mg PO BID [facility]; Protocol Last Admin: 11/19/20 08:07 Dose: 300 mg Documented by: Labetalol HCl (Labetalol Hcl 100 Mg/20 Ml Vial) 10 mg IVPUSH Q6H PRN PRN Reason: BP>180/90 Levothyroxine Sodium (Levothyroxine Sodium 75 Mcg Tablet) 75 mcg PO DAILY@0630 [facility] Last Admin: 11/19/20 06:06 Dose: 75 mcg Documented by: Lidocaine HCl (Lidocaine Hcl 1 % Mpf 2 Ml Ampul) 0.5 ml SUBCUT MOWEFR@1645 [facility] Last Admin: 11/18/20 15:55 Dose: Not Given Documented by: Melatonin (Melatonin 3 Mg Tablet) 6 mg PO BEDTIME PRN PRN Reason: Insomnia Omeprazole (Omeprazole 20 Mg Capsule.Dr) 20 mg PO DAILY [facility] Last Admin: 11/19/20 08:08 Dose: 20 mg Documented by: Pharmacy Consult (Consult Rx Vancomycin Dosing) 1 each MISCELLANE DAILY PRN PRN Reason: Consult order Prednisolone Acetate (Prednisolone Acetate 1 % Oph Susp 5 Ml Drpbtl) 1 drop EYE-BOTH TID [facility] Last Admin: 11/19/20 08:08 Dose: 1 drop Documented by: Senna (Sennosides 8.6 Mg Tablet) 17.2 mg PO BEDTIME PRN PRN Reason: Constipation Sevelamer Carbonate (Sevelamer Carbonate Tablet 800 Mg Tablet) 800 mg PO DAILY [facility] Last Admin: 11/19/20 08:07 Dose: 800 mg Documented by: Sodium Chloride (0.9 % Sodium Chloride Flush 3 Ml Syringe) 3 ml IVFLUSH QSHIFT [facility] Last Admin: 11/19/20 08:07 Dose: 3 ml Documented by: Time Spent With Patient Time: Total time spent is greater than 50% in coordination of care (as documented) at patient's floor/unit and/or counseling patient: Progress Note: Quality Stroke Does the patient have a stroke diagnosis?: No
--- NOTE | 2020-11-19 10:54 | PM.PNNEP ---
Subjective Subjective Date of Service: 11/19/20 Principal diagnosis: PNA, CHF, ESRD on dialysis, HTN Interval history: reports SOB slightly improved had HD near 4 L fluid removed Physical Exam Vital Signs: Vital Signs: Last Vital Signs Temp 97.8 F 11/19/20 08:00 Pulse 83 11/19/20 08:08 Resp 18 11/19/20 08:00 BP 175/80 H 11/19/20 08:08 Pulse Ox 97 11/19/20 08:00 Body Mass Index 35.4 oral moist mucosa lungs decreased in R base s1s2 abd soft +BSs ext trace edema, LUE AVF+thrill Objective Data Labs CBC & Chem 7: 11/18/20 06:12 11/19/20 05:38 Labs: Laboratory Results - last 24 hr 11/18/20 11/18/20 11/18/20 16:19 16:45 20:34 ESR Creatinine Estim Creat Clear Calc Estimated GFR POC Glucose 122 H 137 H Random Vancomycin 8.5 L 11/19/20 11/19/20 11/19/20 05:38 05:38 07:09 ESR 66 H Creatinine 4.83 H* Estim Creat Clear Calc 13.3 Estimated GFR 9 POC Glucose 140 H Random Vancomycin Microbiology Microbiology Results: Microbiology 11/17/20 16:50 Blood - Venous Blood Culture - Preliminary No growth after 24 hours. 11/17/20 16:50 Blood - Venous Blood Culture - Preliminary No growth after 24 hours. Procedures Date of Service Date of Service: 11/19/20 Assessment & Plan Assessment and plan (1) ESRD on dialysis: Status: Acute Assessment and Plan: plan for HD tomorrow (2) Hypertension: Status: Acute Assessment and Plan: suggest to adjust med regimen, increase Labetalol to 300 mg PO TID, keep amlodipine increase to 5 mg a daily add Furosemide 80 mg PO BID on days OFF dialysis consider adding BILLIE blockade or nitrate (3) CHF (congestive heart failure): Status: Acute Assessment and Plan: continue current care as above, consider add nitrate or BILLIE Blockade, will defer to cards (4) Pneumonia: Status: Acute Assessment and Plan: continue Antbx rx ?HCAP consider pulm eval if noimprovement check atypical organisms, consider bronch if no improvement Time Spent With Patient Time: Total time spent is greater than 50% in coordination of care (as documented) at patient's floor/unit and/or counseling patient: Progress Note: Quality Stroke Does the patient have a stroke diagnosis?: No
[2020-11-19] MEDS: Insulin Lispro 100 UNIT/ML 3 ML VIAL SUBCUT ×3 (11:29→21:01)
[2020-11-19] MEDS: Doxycycline Hyclate 100 MG in 0.9 % Sodium Chloride 250 ML 166.67 MG IV ×2 (11:30→22:55)
[2020-11-19 11:46] LABS: Glucose, Whole Blood 223 mg/dL (60-115)
--- NOTE | 2020-11-19 12:58 | HO.PM.IMPN ---
Subjective Subjective Date of Service: 11/19/20 Interval History: probable pneumonia Review of Systems still sob , Denies any abdominal pain or fever or chills or nausea or vomiting Physical Exam Vital Signs: Vital Signs: Last Vital Signs Temp 97.5 F 11/19/20 11:57 Pulse 78 11/19/20 11:57 Resp 16 11/19/20 11:57 BP 119/60 11/19/20 11:57 Pulse Ox 97 11/19/20 11:57 Body Mass Index 35.4 General: AO X 3, no acute distress Resp:?air entry improving but breath sounds dimindhed right>left. CVS: S1,S2,RRR GI: +BS, NT, no distention Skin: No rash Neuro:? motor grossly intact Psych: appropriate affect Objective Data Active Medications Acetaminophen (Acetaminophen 325 Mg Tablet) 650 mg PO Q6H PRN PRN Reason: Pain, Mild (Pain Scale 1-3) Amlodipine Besylate (Amlodipine Besylate 2.5 Mg Tablet) 2.5 mg PO DAILY [facility]; Protocol Last Admin: 11/19/20 08:08 Dose: 2.5 mg Documented by: YAMILETH Atorvastatin Calcium (Atorvastatin Calcium 20 Mg Tablet) 20 mg PO DAILY [facility] Last Admin: 11/19/20 08:08 Dose: 20 mg Documented by: YAMILETH Dextrose (Dextrose 50 % 25 Gm/50 Ml Vial) 25 gm IVPUSH Q15M PRN; Protocol PRN Reason: per Hypoglycemia Standing Ord. Enoxaparin Sodium (Enoxaparin Sodium 40 Mg/0.4 Ml Syringe) 40 mg SUBCUT Q24H [facility] Last Admin: 11/18/20 21:18 Dose: 40 mg Documented by: JHONATAN Furosemide (Furosemide 40 Mg/4 Ml Vial) 40 mg IVPUSH DAILY [facility]; Protocol Last Admin: 11/19/20 08:07 Dose: 40 mg Documented by: YAMILETH Glucose (Glucose Gel 15 Gm Gel..Gram.) 15 gm PO Q15M PRN; Protocol PRN Reason: per Hypoglycemia Standing Ord. Hydralazine HCl (Hydralazine Hcl 50 Mg Tablet) 100 mg PO TID [facility]; Protocol Last Admin: 11/19/20 08:07 Dose: 100 mg Documented by: AYMILETH Cefepime HCl 1 gm/ Sodium (Chloride) 50 mls @ 100 mls/hr IV Q24H [facility] Last Infusion: 11/18/20 17:51 Dose: 0 mls/hr Documented by: NEISHA Doxycycline Hyclate 100 mg/ (Sodium Chloride) 250 mls @ 166.67 mls/hr IV Q12H [facility] Last Admin: 11/19/20 11:30 Dose: 166.67 mls/hr Documented by: FRANCESCO Insulin Human Lispro (Insulin Lispro 100 Unit/Ml 3 Ml Vial) 0 unit SUBCUT QIDACHS [facility]; Protocol Last Admin: 11/19/20 11:29 Dose: 4 unit Documented by: FRANCESCO Labetalol HCl (Labetalol Hcl 100 Mg Tablet) 300 mg PO BID [facility]; Protocol Last Admin: 11/19/20 08:07 Dose: 300 mg Documented by: YAMILETH Labetalol HCl (Labetalol Hcl 100 Mg/20 Ml Vial) 10 mg IVPUSH Q6H PRN PRN Reason: BP>180/90 Levothyroxine Sodium (Levothyroxine Sodium 75 Mcg Tablet) 75 mcg PO DAILY@0600 [facility] Lidocaine HCl (Lidocaine Hcl 1 % Mpf 2 Ml Ampul) 0.5 ml SUBCUT MOWEFR@1645 [facility] Last Admin: 11/18/20 15:55 Dose: Not Given Documented by: NEISHA Non-Admin Reason: Given in Dialysis Melatonin (Melatonin 3 Mg Tablet) 6 mg PO BEDTIME PRN PRN Reason: Insomnia Omeprazole (Omeprazole 20 Mg Capsule.Dr) 20 mg PO DAILY@0630 [facility] Pharmacy Consult (Consult Rx Vancomycin Dosing) 1 each MISCELLANE DAILY PRN PRN Reason: Consult order Prednisolone Acetate (Prednisolone Acetate 1 % Oph Susp 5 Ml Drpbtl) 1 drop EYE-BOTH TID [facility] Last Admin: 11/19/20 08:08 Dose: 1 drop Documented by: YAMILETH Senna (Sennosides 8.6 Mg Tablet) 17.2 mg PO BEDTIME PRN PRN Reason: Constipation Sevelamer Carbonate (Sevelamer Carbonate Tablet 800 Mg Tablet) 800 mg PO DAILY [facility] Last Admin: 11/19/20 08:07 Dose: 800 mg Documented by: YAMILETH Sodium Chloride (0.9 % Sodium Chloride Flush 3 Ml Syringe) 3 ml IVFLUSH QSHIFT [facility] Last Admin: 11/19/20 08:07 Dose: 3 ml Documented by: YAMILETH Labs CBC & Chem 7: 11/18/20 06:12 11/19/20 05:38 Labs: Laboratory Results - last 24 hr 11/18/20 11/18/20 11/18/20 16:19 16:45 20:34 ESR Estim Creat Clear Calc Estimated GFR POC Glucose 122 H 137 H Random Vancomycin 8.5 L 11/19/20 11/19/20 11/19/20 05:38 05:38 07:09 ESR 66 H Estim Creat Clear Calc 13.3 Estimated GFR 9 POC Glucose 140 H Random Vancomycin 11/19/20 11:11 ESR Estim Creat Clear Calc Estimated GFR POC Glucose 223 H Random Vancomycin Microbiology Microbiology Results: Microbiology 11/17/20 16:50 Blood Culture - Preliminary Blood - Venous No growth after 24 hours. 11/17/20 16:50 Blood Culture - Preliminary Blood - Venous No growth after 24 hours. Assessment and Plan (1) Pneumonitis: Status: Acute (2) ESRD on dialysis: Status: Acute Assessment and Plan: 60-year-old female with past medical history of ESRD on dialysis, diabetes and hypertension presents to the hospital with complaints of shortness of breath found to have pneumonia as well as volume overload secondary to CHF exacerbation 1. community-acquired pneumonia--finding on CXR maybe d/t fluid overload from? fluid overload day Continue Cefepime day , added doxycycline day1 taper oxygen still has cxr changes post hd. 2. CHF exacerbation elevated BNP, and pleural effusion on chest CT she still produces urine Continue Lasix 40 IV b.i.d. Echo showed moderate pericardial effusion, asymptomatic Cardiology input appreciated, treat medically and avoid interventions for now low-sodium diet, daily weight, strict diet 3.pericardial effusion Possibly secondary to her history of ESRD Echo to further assess 4. ESRD on dialysis MWF Nephrology for dialysis while inpatient 5. HTN--continue Norvasc and Hydralazine 6. dibetes continue home and insulin low-dose sliding scale insulin diabetic diet 7. hypothyroidism ?continue home levothyroxine DVT prophylaxis:? Heparin subQ Quality Stroke Does the patient have a stroke diagnosis?: No VTE Prior VTE?: No VTE Risk Level:: Medical - moderate - high VTE Device Contraindication: Treatment Not Indicated VTE Drug Contraindication: N/A - Med Ordered
[2020-11-19 17:00] LABS: Glucose, Whole Blood 156 mg/dL (60-115)
[2020-11-19] MEDS: cefEPime HCl 1 GM in 0.9 % Sodium Chloride 50 ML IV (17:47)
[2020-11-19] MEDS: Enoxaparin Sodium 40 MG/0.4 ML SYRINGE SUBCUT (20:50)
[2020-11-19 21:01] LABS: Glucose, Whole Blood 182 mg/dL (60-115)
[2020-11-20] MEDS: 0.9 % Sodium Chloride Flush 3 ML SYRINGE IVFLUSH ×3 (00:34→16:04)
[2020-11-20 03:55] VITALS: BP 143/68; PULSE 76; RESP 17; TEMP 36.2; O2SAT 97
[2020-11-20] MEDS: Omeprazole 20 MG CAPSULE.DR PO (05:37)
[2020-11-20] MEDS: Levothyroxine Sodium 75 MCG TABLET PO (05:37)
[2020-11-20 06:00] VITALS: BMI 38.5
[2020-11-20 06:21] LABS: Anion Gap 17 (12-20); Blood Urea Nitrogen 52 mg/dL (9-16); Calcium 7.6 mg/dL (8.4-10.2); Carbon Dioxide 21 mmol/L (22-29); Chloride 101 mmol/L (96-108); Creatinine Clr Calc Pharmacy 10.7; Estimated Glomerular Filt Rate 7; Glucose Random 155 mg/dL (60-115); Potassium 4.8 mmol/L (3.3-5.1); Sodium 134 mmol/L (135-145)
[2020-11-20 07:12] LABS: Glucose, Whole Blood 145 mg/dL (60-115)
[2020-11-20 07:18] VITALS: BP 148/68; PULSE 77; RESP 18; TEMP 36; O2SAT 99
--- NOTE | 2020-11-20 09:00 | P.PNPL_ITS ---
Subjective Subjective Date of Service: 11/20/20 Principal diagnosis: PNA, CHF, ESRD on dialysis, HTN Interval history: The patient was seen on exam. Feeling a little better this morning. Chest x-ray was about the same demonstrating the right-sided airspace disease. She is getting dialyzed at this time. She started doxycycline last night. I did talk to Cardiology the contemplating a right and left heart catheterization. This is something that was planned previously. But, with the changes in her respiratory status the may be transferring for the procedure [facility]. I did contemplate given her steroids for inflammatory condition. However, given the patient's clinical improvement and the plan for catheterization will hold off on any additional therapies. Objective Data Labs CBC & Chem 7: 11/18/20 06:12 11/20/20 05:18 Labs: Laboratory Results - last 24 hr 11/19/20 11/19/20 11/19/20 05:38 11:11 16:47 ESR 66 H Sodium Potassium Chloride Carbon Dioxide Anion Gap BUN Creatinine Estim Creat Clear Calc Estimated GFR POC Glucose 223 H 156 H Random Glucose Calcium 11/19/20 11/20/20 11/20/20 20:37 05:18 05:18 ESR Sodium 134 L Potassium 4.8 Chloride 101 Carbon Dioxide 21 L Anion Gap 17 BUN 52 H Creatinine Cancelled 6.32 H* Estim Creat Clear Calc Cancelled 10.7 Estimated GFR Cancelled 7 POC Glucose 182 H Random Glucose 155 H Calcium 7.6 L D 11/20/20 07:07 ESR Sodium Potassium Chloride Carbon Dioxide Anion Gap BUN Creatinine Estim Creat Clear Calc Estimated GFR POC Glucose 145 H Random Glucose Calcium Microbiology Microbiology Results: Microbiology 11/17/20 16:50 Blood - Venous Blood Culture - Preliminary No growth after 48 hours. 11/17/20 16:50 Blood - Venous Blood Culture - Preliminary No growth after 48 hours. Review of Systems Constitutional: Denies night sweats Denies change in voice, Denies lip swelling, Denies mouth pain and Denies tongue swelling Cardiovascular: Denies chest pain and Reports dyspnea Respiratory: Reports cough and Reports dyspnea Gastrointestinal: Denies abdominal pain Musculoskeletal: Denies no additional musculoskeletal complaints Denies Neuro-related abnormal movements Psychiatric: Denies no additional psychiatric complaints Hematologic/Lymphatic: Denies easy bleeding and Denies lymphadenopathy Allergic/Immunologic: Denies lip swelling and Denies tongue swelling Physical Exam Vital Signs: Vital Signs: Last Vital Signs Temp 96.8 F 11/20/20 07:18 Pulse 77 11/20/20 07:18 Resp 18 11/20/20 07:18 BP 148/68 H 11/20/20 07:18 Pulse Ox 99 11/20/20 07:18 Body Mass Index 38.5 Const: General: alert Neck: Neck: Yes normal visual inspection, Yes full ROM and Yes no lym phadenopathy Chest: Chest palpation & inspection: normal inspection of the chest Resp: Auscultation: diminished lung sounds Cardio: Rate: regular rate Rhythm: regular rhythm Heart sounds: S1 normal heart sound present and S2 normal heart sound present GI: Palpation (GI): Soft to palpation and nontender Auscultation: normal bowel sounds Skin: General skin exam: rashes and/or lesions noted Procedures Date of Service Date of Service: 11/20/20 Assessment and Plan Assessment and plan (1) CHF (congestive heart failure): Status: Acute (2) Pneumonia: Status: Acute (3) ESRD on dialysis: Status: Acute Assessment and Plan: The patient has an RPR filling process which could represent asymmetrical pulmonary edema, diffuse several hemorrhage or infection. No evidence of any hemoptysis. Still waiting for the ANCA levels. Doubt a pulmonary renal syndrome. However, still on the differential. Now now treating for atypical infections with doxycycline in the patient clinically feels better. The patient will be assessed for pulmonary vascular and cardiovascular disease with potential heart catheterization Recommendations: Continue antibiotics for now Holding off on corticosteroid therapy at this time specially with the patient is clinically better Respiratory viral panel should be completed Awaiting blood work results for inflammatory noninfectious etiologies Continue oxygen supplementation to maintain a pulse ox above 90% Patient may be transferred to [facility] for right and left cardiac catheterization Time Spent With Patient Time: Total time spent is greater than 50% in coordination of care (as documented) at patient's floor/unit and/or counseling patient: Time with patient: 25 - 35 minutes Progress Note: Quality Stroke Does the patient have a stroke diagnosis?: No
--- NOTE | 2020-11-20 09:19 | PM.PNCARD ---
Subjective Subjective Date of Service: 11/20/20 <KELSEY Yan - Last Filed: 11/20/20 09:32> 11/20/20 <Ernesto Amaral MD - Last Filed: 11/20/20 12:56> Principal diagnosis: PNA, CHF, ESRD on dialysis, HTN <KELSEY Yan - Last Filed: 11/20/20 09:32> Interval history: Cardiology follow up for CHF, HTN. Seen at 0910. Today she reports further improvement in breathing. Slept well with HOB elevated about 20 degrees. Wearing O2 cannula 1 liter. Had mild sob when walking to the this am. No chest pains, palpitations, dizziness, falls. Edema fully resolved. Currently undergoing hemodialysis. <KELSEY Yan Last Filed: 11/20/20 09:32> Review of Systems Review of Systems as above <KELSEY Yan - Last Filed: 11/20/20 09:32> Yes all other systems are reviewed and are negative <KELSEY Yan - Last Filed: 11/20/20 09:32> Physical Exam Vital Signs: Last Vital Signs Temp 96.8 F 11/20/20 07:18 Pulse 77 11/20/20 07:18 Resp 18 11/20/20 07:18 BP 148/68 H 11/20/20 07:18 Pulse Ox 99 11/20/20 07:18 Body Mass Index 38.5 <KELSEY Yan - Last Filed: 11/20/20 09:32> Const General: cooperative, no acute distress, alert and awake <KELSEY Yan - Last Filed: 11/20/20 09:32> Orientation/consciousness: patient oriented x3 <KELSEY Yan Last Filed: 11/20/20 09:32> HENMT Head: Yes normal to inspection <KELSEY Yan Last Filed: 11/20/20 09:32> Neck Neck: Yes normal visual inspection <KELSEY Yan Last Filed: 11/20/20 09:32> Resp Effort & Inspection: normal respiratory effort, able to speak in complete sentences and not labored <Miley Berry LOYDC - Last Filed: 11/20/20 09:32> Auscultation: clear to auscultation bilaterally, no rales, no rhonchi and no wheezes <Miley Berry RATE CLERKMayra - Last Filed: 11/20/20 09:32> Cardio Jugular venous distension: JVD present <Miley Kristi LOYD - Last Filed: 11/20/20 09:32> Palpation: normal PMI <Miley KristiTANNER - Last Filed: 11/20/20 09:32> Rate: regular rate <Miley M TANNER Berry - Last Filed: 11/20/20 09:32> Rhythm: regular rhythm <Miley M Kristi LOYD Mayra Last Filed: 11/20/20 09:32> Heart sounds: S1 normal heart sound present and S2 normal heart sound present <Miley KristiTANNERMayra - Last Filed: 11/20/20 09:32> Peripheral pulses: Peripheral pulses 2+ throughout <Miley Berry RATE CLERK - Last Filed: 11/20/20 09:32> GI Inspection: Yes normal to inspection <[facility] Kristi LOYDC - Last Filed: 11/20/20 09:32> Neuro General: patient oriented x3 <Miley BerryTANNERMayra - Last Filed: 11/20/20 09:32> Extrem General: Yes normal to inspection and No edema <Miley KristiTANNERMayra - Last Filed: 11/20/20 09:32> Results Labs and Meds Result diagrams: : 11/18/20 06:12 11/20/20 05:18 <Miley BerryTANNER - Last Filed: 11/20/20 09:32> Lab results: Laboratory Results - last 24 hr 11/19/20 11/19/20 11/19/20 05:38 11:11 16:47 ESR 66 H Sodium Potassium Chloride Carbon Dioxide Anion Gap BUN Creatinine Estim Creat Clear Calc Estimated GFR POC Glucose 223 H 156 H Random Glucose Calcium 11/19/20 11/20/20 11/20/20 20:37 05:18 05:18 ESR Sodium 134 L Potassium 4.8 Chloride 101 Carbon Dioxide 21 L Anion Gap 17 BUN 52 H Creatinine Cancelled 6.32 H* Estim Creat Clear Calc Cancelled 10.7 Estimated GFR Cancelled 7 POC Glucose 182 H Random Glucose 155 H Calcium 7.6 L D 11/20/20 07:07 ESR Sodium Potassium Chloride Carbon Dioxide Anion Gap BUN Creatinine Estim Creat Clear Calc Estimated GFR POC Glucose 145 H Random Glucose Calcium <KELSEY Yan - Last Filed: 11/20/20 09:32> Imaging Radiologist's impression: Impressions Chest X-Ray 11/20/20 07:00 IMPRESSION: Multilobar right-sided airspace disease probably representing pneumonia. Taking into account difference in film technique this is probably not appreciably changed from recent exams. <KELSEY Yan - Last Filed: 11/20/20 09:32> Progress Note: A&P Assessment and plan (1) CHF (congestive heart failure): Status: Acute <KELSEY Yan - Last Filed: 11/20/20 09:32> Assessment and Plan: Recent admit with PNA, CHF. Plan was then for outpt Right and left heart cath which had not been done yet. She was Readmitted with sob, edema and CXR with right infiltrate. BNP elevated at 3254. Echo from 11/05/20 shows EF 60-65%, mod LVH, mod . Undergoing hemodialysis and did have improvement in breathing and resolution of edema. CXR findings did show a unilateral opacity, likely pneumonitis from recent PNA. Following with pulmonology as well. CHF seems resolved. Undergoing hemodialysis this am. Now she has had CHF X2. A nuclear stress test done on 10/10/20 showed reversible anterior wall defect which could be ischemia Vs artifact. Sneha needs further cardiac evaluation with right and left heart cath. Will discuss case with Dr Amaral, planning for possible transfer to [facility] for the cath procedure. Reviewed plan with pt and she is agreeable to proceed. <KELSEY Yan - Last Filed: 11/20/20 09:32> (2) Pneumonitis: Status: Acute <KELSEY Yan - Last Filed: 11/20/20 09:32> (3) Hypertension: Status: Acute <KELSEY Yan - Last Filed: 11/20/20 09:32> Assessment and Plan: Better controlled at this time. No med changes made presently. <Miley Jessy KELSEY Berry - Last Filed: 11/20/20 09:32> (4) ESRD on dialysis: Status: Acute <Miley Jessy KELSEY Berry Last Filed: 11/20/20 09:32> Assessment and Plan: Followed by Nephrology <KELSEY Yan - Last Filed: 11/20/20 09:32> (5) Abnormal nuclear stress test: Status: Acute <KELSEY Yan Last Filed: 11/20/20 09:32> (6) Aortic stenosis: Status: Acute <KELSEY Yan Last Filed: 11/20/20 09:32> Assessment and Plan: Moderate <KELSEY Yan Last Filed: 11/20/20 09:32> Fall Risk Details Current Medications: Current Medications Acetaminophen (Acetaminophen 325 Mg Tablet) 650 mg PO Q6H PRN PRN Reason: Pain, Mild (Pain Scale 1-3) Amlodipine Besylate (Amlodipine Besylate 2.5 Mg Tablet) 2.5 mg PO DAILY [facility]; Protocol Last Admin: 11/19/20 08:08 Dose: 2.5 mg Documented by: Atorvastatin Calcium (Atorvastatin Calcium 20 Mg Tablet) 20 mg PO DAILY [facility] Last Admin: 11/19/20 08:08 Dose: 20 mg Documented by: Dextrose (Dextrose 50 % 25 Gm/50 Ml Vial) 25 gm IVPUSH Q15M PRN; Protocol PRN Reason: per Hypoglycemia Standing Ord. Enoxaparin Sodium (Enoxaparin Sodium 40 Mg/0.4 Ml Syringe) 40 mg SUBCUT Q24H [facility] Last Admin: 11/19/20 20:50 Dose: 40 mg Documented by: Furosemide (Furosemide 40 Mg Tablet) 80 mg PO BID@0900,1800 [facility]; Protocol Glucose (Glucose Gel 15 Gm Gel..Gram.) 15 gm PO Q15M PRN; Protocol PRN Reason: per Hypoglycemia Standing Ord. Hydralazine HCl (Hydralazine Hcl 50 Mg Tablet) 100 mg PO TID [facility]; Protocol Last Admin: 11/19/20 20:50 Dose: 100 mg Documented by: Cefepime HCl 1 gm/ Sodium (Chloride) 50 mls @ 100 mls/hr IV Q24H [facility] Last Infusion: 11/19/20 19:52 Dose: Infused Documented by: Doxycycline Hyclate 100 mg/ (Sodium Chloride) 250 mls @ 166.67 mls/hr IV Q12H [facility] Last Infusion: 11/20/20 00:33 Dose: Infused Documented by: Insulin Human Lispro (Insulin Lispro 100 Unit/Ml 3 Ml Vial) 0 unit SUBCUT QIDACHS [facility]; Protocol Last Admin: 11/20/20 07:18 Dose: Not Given Documented by: Labetalol HCl (Labetalol Hcl 100 Mg Tablet) 300 mg PO TID [facility]; Protocol Levothyroxine Sodium (Levothyroxine Sodium 75 Mcg Tablet) 75 mcg PO DAILY@0600 [facility] Last Admin: 11/20/20 05:37 Dose: 75 mcg Documented by: Lidocaine HCl (Lidocaine Hcl 1 % Mpf 2 Ml Ampul) 0.5 ml SUBCUT MOWEFR@1645 [facility] Last Admin: 11/18/20 15:55 Dose: Not Given Documented by: Melatonin (Melatonin 3 Mg Tablet) 6 mg PO BEDTIME PRN PRN Reason: Insomnia Omeprazole (Omeprazole 20 Mg Capsule.Dr) 20 mg PO DAILY@0630 [facility] Last Admin: 11/20/20 05:37 Dose: 20 mg Documented by: Pharmacy Consult (Consult Rx Vancomycin Dosing) 1 each MISCELLANE DAILY PRN PRN Reason: Consult order Prednisolone Acetate (Prednisolone Acetate 1 % Oph Susp 5 Ml Drpbtl) 1 drop EYE-BOTH TID [facility] Last Admin: 11/19/20 21:02 Dose: 1 drop Documented by: Senna (Sennosides 8.6 Mg Tablet) 17.2 mg PO BEDTIME PRN PRN Reason: Constipation Sevelamer Carbonate (Sevelamer Carbonate Tablet 800 Mg Tablet) 800 mg PO DAILY [facility] Last Admin: 11/19/20 08:07 Dose: 800 mg Documented by: Sodium Chloride (0.9 % Sodium Chloride Flush 3 Ml Syringe) 3 ml IVFLUSH QSHIFT [facility] Last Admin: 11/20/20 00:34 Dose: 3 ml Documented by: <KELSEY Yan - Last Filed: 11/20/20 09:32> Time Spent With Patient Time: Total time spent is greater than 50% in coordination of care (as documented) at patient's floor/unit and/or counseling patient: 24 <KELSEY Yan - Last Filed: 11/20/20 09:32> Time with patient: 15 - 24 minutes <KELSEY Yan - Last Filed: 11/20/20 09:32> Progress Note: Quality Stroke Does the patient have a stroke diagnosis?: No <KELSEY Yan - Last Filed: 11/20/20 09:32> Procedures Date of Service Date of Service: 11/20/20 <KELSEY Yan - Last Filed: 11/20/20 09:32>
--- NOTE | 2020-11-20 10:44 | P.PNNP_ITS ---
Subjective Subjective Date of Service: 11/20/20 Principal diagnosis: PNA, CHF, ESRD on dialysis, HTN Interval history: pt feeling better this AM no complaints on HD Physical Exam Vital Signs: Vital Signs: Last Vital Signs Temp 96.8 F 11/20/20 07:18 Pulse 77 11/20/20 07:18 Resp 18 11/20/20 07:18 BP 148/68 H 11/20/20 07:18 Pulse Ox 99 11/20/20 07:18 Body Mass Index 38.5 oral moist mucosa lungs decreasedBS on both bases s1s2 abd soft +Bs ext less edema, LUE AVF+ Objective Data Labs CBC & Chem 7: 11/18/20 06:12 11/20/20 05:18 Labs: Laboratory Results - last 24 hr 11/19/20 11/19/20 11/19/20 11:11 16:47 20:37 Sodium Potassium Chloride Carbon Dioxide Anion Gap BUN Creatinine Estim Creat Clear Calc Estimated GFR POC Glucose 223 H 156 H 182 H Random Glucose Calcium 11/20/20 11/20/20 11/20/20 05:18 05:18 07:07 Sodium 134 L Potassium 4.8 Chloride 101 Carbon Dioxide 21 L Anion Gap 17 BUN 52 H Creatinine Cancelled 6.32 H* Estim Creat Clear Calc Cancelled 10.7 Estimated GFR Cancelled 7 POC Glucose 145 H Random Glucose 155 H Calcium 7.6 L D Microbiology Microbiology Results: Microbiology 11/17/20 16:50 Blood - Venous Blood Culture - Preliminary No growth after 48 hours. 11/17/20 16:50 Blood - Venous Blood Culture - Preliminary No growth after 48 hours. Procedures Date of Service Date of Service: 11/20/20 Assessment & Plan Assessment and plan (1) ESRD on dialysis: Status: Acute Assessment and Plan: COntinue with [facility] rx as is HD MWF (2) Hypertension: Status: Acute Assessment and Plan: meds reviewed appreciate medicine team following medadjustment for BP control (3) Pneumonitis: Status: Acute Assessment and Plan: as per med and Pulm (4) Abnormal nuclear stress test: Status: Acute Assessment and Plan[facility], i asked her to check with Cards on we can dialyze at [facility] if stays overnight Time Spent With Patient Time: Total time spent is greater than 50% in coordination of care (as documented) at patient's floor/unit and/or counseling patient: Progress Note: Quality Stroke Does the patient have a stroke diagnosis?: No
--- NOTE | 2020-11-20 11:49 | MHC.CM.PN ---
Patient is not yet medically cleared for dc (IV Cefepime, IV Doxycycline, ? of transfer to [facility] for Cardiac Cath). Home/? of new O2 and new HVNA was the goal for dc and CM will follow for possible need to adjust the dc plan.
--- NOTE | 2020-11-20 12:36 | MHC.CM.PN ---
Per MD, Patient will be medically cleared for dc to home today, with services. A referral had been made to [facility], who has been notified of today's dc. Last IMM addressed on 11/19/20.
[2020-11-20 12:54] VITALS: BP 154/67; PULSE 83; RESP 18; TEMP 36.3; O2SAT 97
[2020-11-20 13:00] LABS: Glucose, Whole Blood 121 mg/dL (60-115)
[2020-11-20] MEDS: Doxycycline Hyclate 100 MG in 0.9 % Sodium Chloride 250 ML 166.67 MG IV (13:11)
--- NOTE | 2020-11-20 13:35 | MHC.CM.PN ---
NA is unable top accommodate Patient.[facility] accepted Patient.
--- NOTE | 2020-11-20 15:34 | W.MHC.F2F ---
Service Date Service Date: 11/20/20 Encounter Date of encounter: 11/20/20 Encounter: pneumonia, chf Reasons for Services Homebound: Leaving the home is medically contraindicated at this time without the asist of a device and/or another person due th the listed conditions above and below. Homebound supporting statement: Patient is generally weak and has multiple comorbidities and also need help going to appointments. Certification: Based on the above findings, I certify that this patient is confined to the home and needs intermittent detention care, physical therapy and/or speech therapy, or continues to need occupational therapy. The patient is under my care, and I have initiated the establishment of the plan of care. The patient will be followed by a physician who will periodically review the plan of care.
[2020-11-20 15:35] VITALS: PULSE 82; O2SAT 96
--- NOTE | 2020-11-20 15:35 | P.DS_ITS ---
DS: Providers Provider Date of Service: 11/20/20 Date of admission: 11/17/20 19:19 Date of discharge: 11/20/20 Primary care physician: Mason Lopez MD Consults: 11/17/20 19:21 Consult to Cardiology Routine Consulting Provider: Sukhi Cochran Reason for consultation: CHF Consult to Nephrology Routine Consulting Provider: Vince Juarez Reason for consultation: ESRD 11/19/20 08:02 Consult to Pulmonology Routine Consulting Provider: John Blanco Reason for consultation: hypoxia/pneumonia Has provider been notified: No DS: Diagnosis Discharge Diagnosis (1) CHF (congestive heart failure): Status: Acute (2) Pneumonitis: Status: Acute (3) Hypertension: Status: Acute (4) ESRD on dialysis: Status: Acute (5) Abnormal nuclear stress test: Status: Acute (6) Aortic stenosis: Status: Acute DS: Summary Hospital Course Hospital Course: 60-year-old female with past medical history of ESRD on dialysis, diabetes and hypertension presents to the hospital with complaints of shortness of breath found to have pneumonia as well as volume overload secondary to CHF exacerbation. hospital course: Patient was admitted sob-getting treated for pneumonia and CHF exacerbation: Patient was started on IV antibiotics as well as given IV Lasix and dialysis-her shortness of breath clinically she is improving, upon discharge switched to p.o. antibiotics, home oxygen evaluation added-patient is saturating for fine on room air so did not qualify for home oxygen. will be on p.o. Lasix every every other day when she is not getting dialysis 3 times a week. Patient was seen by cardio and pulmonary: Patient needs right heart catheterization which will be arranged for Cardiology out patiently. echo:1. Normal LV systolic function with moderate LVH with ? pseudonormal filling pattern ? 2. Moderately dilated left atrium? 3. Moderate aortic stenosis, paradoxical low-flow? 4. Severe mitral annular calcification ? 5. Normal RV systolic pressure ? 6. Small pericardial effusion? ? ? Hypertension salazar: Adjusted amlodipine to 5 mg daily , blood pressure improving. ESRD salazar: Continue hemodialysis out patiently. Diabetes salazar: Fingersticks are running between 150-200 range, we will adjust home insulin regimen. Please follow-up with outpatient pulmonary for above pneumonia issue, also follow-up with Cardiology for cardiac catheterization in [facility]. Above management discussed with the patient in detail length she understand and in agreement with the above plan, time spent 50 minutes and 50% time spent on counseling.going home with [facility] Significant findings: As above. Procedures performed: None. Treatment and response: As above. Complications: None. Time Spent with Patient Time attestation: Total time spent providing and/or coordinating discharge services: Discharge coordination time: Greater than 30 minutes Quality: Stroke Does the patient have a stroke diagnosis?: No Physical Exam Vital Signs: Vital Signs: Last Vital Signs Temp 97.4 F 11/20/20 12:54 Pulse 83 11/20/20 12:54 Resp 18 11/20/20 12:54 BP 154/67 H 11/20/20 12:54 Pulse Ox 97 11/20/20 12:54 Body Mass Index 38.5 General: AO X 3, no acute distress Resp:?air entry improving , no rales or wheezing CVS: S1,S2,RRR GI: +BS, NT, no distention Skin: No rash Neuro:? motor grossly intact Psych: appropriate affect DS: Data Data Completed and Pending Completed studies during hospitalization [Text1]: Procedures Assistance with Respiratory Ventilation, Less than 24 Consecutive Hours, Continuous Positive Airway Pressure (08/19/20) Performance of Urinary Filtration, Intermittent, Less than 6 Hours Per Day (11/04/20) Labs on day of discharge: Laboratory Results - last 24 hr 11/19/20 11/19/20 11/20/20 16:47 20:37 05:18 Sodium Potassium Chloride Carbon Dioxide Anion Gap BUN Creatinine Cancelled Estim Creat Clear Calc Cancelled Estimated GFR Cancelled POC Glucose 156 H 182 H Random Glucose Calcium 11/20/20 11/20/20 11/20/20 05:18 07:07 12:56 Sodium 134 L Potassium 4.8 Chloride 101 Carbon Dioxide 21 L Anion Gap 17 BUN 52 H Creatinine 6.32 H* Estim Creat Clear Calc 10.7 Estimated GFR 7 POC Glucose 145 H 121 H Random Glucose 155 H Calcium 7.6 L D Preliminary micro results at discharge 11/17/20 16:50 Blood Culture - Preliminary Blood - Venous No growth after 48 hours. 11/17/20 16:50 Blood Culture - Preliminary Blood - Venous No growth after 48 hours. Discharge Plan Discharge Patient Disposition: Home Health Service Discharge Diagnosis: chf , esrd , pneumonitis Referrals: [facility] [Outside] - 1 Week Po,Mason Casarez MD [Primary Care Provider] - 1 Week Discharge Medications: New furosemide 40 mg Tablet 80 mg PO BID@0900,1800 Qty: 30 RF: 0 amoxicillin-pot clavulanate [Augmentin] 500-125 mg tablet 1 tab PO BID Qty: 12 RF: 0 doxycycline hyclate 100 mg tablet 100 mg PO DAILY Qty: 12 RF: 0 Continued atorvastatin 20 mg tablet 20 mg PO DAILY RF: 0 ondansetron HCl 4 mg tablet 4 mg PO DAILY PRN (Reason: nausea/vomiting) RF: 0 levothyroxine 75 mcg tablet 75 mcg PO DAILY RF: 0 prednisolone acetate 1 % drops,suspension 1 drp TID RF: 0 omeprazole 20 mg capsule,delayed release(DR/EC) 20 mg PO DAILY RF: 0 labetalol 300 mg tablet 300 mg PO BID RF: 0 sevelamer carbonate 800 mg tablet 800 mg PO DAILY RF: 0 hydralazine 100 mg tablet 100 mg PO TID 30 Days Qty: 90 RF: 0 furosemide 40 mg tablet 40 mg PO DAILY Qty: 30 RF: 0 Changed insulin aspart U-100 [Novolog Flexpen U-100 Insulin] 100 unit/mL (3 mL) insulin pen 3 unit subcut TID Qty: 0 RF: 0 Lantus Solostar U-100 Insulin 100 unit/mL (3 mL) insulin pen 8 unit subcut QAM Qty: 0 RF: 0 amlodipine 2.5 mg Tablet 5 mg PO DAILY 30 Days Qty: 30 RF: 0 Discharge Orders: Discharge Order (Routine); Ordered 11/20/20 Ordered By: Millie Ferrer Diet: advance to usual diet, diabetic diet and low salt diet Activity on Discharge: As tolerated Stand Alone Forms: Patient Portal Discharge page Care Plan Goals: Patient was admitted sob-getting treated for pneumonia and CHF exacerbation: Patient was started on IV antibiotics as well as given IV Lasix and dialysis-her shortness of breath clinically she is improving, upon discharge switched to p.o. antibiotics, home oxygen evaluation added. Also will be on p.o. Lasix every every other day when she is not getting dialysis 3 times a week. Hypertension salazar: Adjusted amlodipine to 5 mg daily , blood pressure improving. Patient needs right heart catheterization which will be arranged for Cardiology out patiently ESRD salazar: Continue hemodialysis out patiently. Diabetes salazar: Fingersticks are running between 150-200 range, we will adjust home insulin regimen . Health Concerns: As above. Plan of Treatment: As above. Assessment: As above.
--- NOTE | 2020-11-20 15:45 | MHC.CM.PN ---
RESPIRATORY EVAL SHOWS NO INDICATION FOR HOME O2. PATIENT OT RETURN HOME WITH [facility]. RN AWARE OF PLAN.
[2020-11-20 16:00] VITALS: BP 152/64; PULSE 81; RESP 18; TEMP 36.3; O2SAT 97
[2020-11-20] MEDS: hydrALAZINE HCl 50 MG TABLET 100 MG PO (16:04)
[2020-11-20] MEDS: Labetalol HCL 100 MG TABLET 300 MG PO (16:04)
[2020-11-20] MEDS: prednisoLONE Acetate 1 % Oph Susp 5 ML DRPBTL 1 DROP EYE-BOTH (16:05)
--- NOTE | 2020-11-20 16:07 | MHC.CM.PN ---
DAUGHTER FREDRICK IS ON HER WAY IN TO TRANSPORT PATIENT HOME. SHE ASKS THAT RN WAIT TO GO OVER DC INSTRUCTIONS UNTIL SHE ARRIVES. DAUGHTER ALSO ASKING FOR ASSISTANCE WITH [employer] A SECONDARY [employer]. INFORMATION FOR [facility] [employer] DEPARTMENT LEFT IN ROOM FOR DAUGHTER
[2020-11-20] MEDS: Insulin Lispro 100 UNIT/ML 3 ML VIAL SUBCUT (16:09)
[2020-11-20] MEDS: cefEPime HCl 1 GM in 0.9 % Sodium Chloride 50 ML IV (16:10)
[2020-11-20 16:42] LABS: Glucose, Whole Blood 222 mg/dL (60-115)
[2020-11-22 06:07] LABS: Myeloperoxidase Antibody <1.0 AI; Proteinase 3 PR3 Antibodies <1.0 AI
[2020-11-23 10:36] LABS: Immunoglobulin E 184 kU/L (<OR=114)
[2020-11-23 13:41] LABS: Anti Nuclear Antibody Screen NEGATIVE (NEGATIVE)
== END 2020-11-20 17:53 | disposition home health service (06) | DRG 193 ==
LOC: HO.ED 18:36 → HO.EDOVER 19:44 → HO.S3 11-18 12:09
PROVIDERS: Hospitalist; Internal Medicine; Admitting Provider Hospitalist; Emergency Provider Emergency Medicine Emergency Medical Services; PCP Internal Medicine; Visit Provider Internal Medicine
DX: J18.9 Pneumonia, unspecified organism (principal); N18.6 End stage renal disease; I13.2 Hypertensive heart and chronic kidney disease with heart failure and with stage 5 chronic kidney disease, or end stage renal disease; E11.65 Type 2 diabetes mellitus with hyperglycemia; E03.9 Hypothyroidism, unspecified; D63.1 Anemia in chronic kidney disease; I35.0 Nonrheumatic aortic (valve) stenosis; Z20.822 Contact with and (suspected) exposure to COVID-19; R94.39 Abnormal result of other cardiovascular function study; I16.0 Hypertensive urgency; E11.22 Type 2 diabetes mellitus with diabetic chronic kidney disease; Z99.2 Dependence on renal dialysis; Z79.4 Long term (current) use of insulin; Z79.890 Hormone replacement therapy; Z79.899 Other long term (current) drug therapy
CPT/HCPCS: 36415; 71045; 71046; 80048; 80053; 80202; 82565; 82785; 82803; 82947; 83605; 83735; 83880; 84484; 85025; 85652; 86021; 86038; 86039; 87040; 87635; 90999; 93005; 96365; 96375; 99285; J0692; J1650; J1940; J3370

== ENCOUNTER → 2020-12-12 08:33 | Outpatient (BNVA) | payer MEDICARE, SELFPAY | PROVIDERS: PCP Internal Medicine; Visit Provider Hospitalist | DX: J18.9 Pneumonia, unspecified organism (principal); J90 Pleural effusion, not elsewhere classified; G47.33 Obstructive sleep apnea (adult) (pediatric); G47.00 Insomnia, unspecified; I50.9 Heart failure, unspecified | CPT/HCPCS: 99212 ==

== ENCOUNTER 2020-12-17 14:14 | Outpatient (REF) | payer MEDICARE, SELFPAY | END 2020-12-17 14:15 | disposition home or self-care (01) | LOC: HO.SL 14:14 | PROVIDERS: Visit Provider Hospitalist | DX: G47.33 Obstructive sleep apnea (adult) (pediatric) (principal) | CPT/HCPCS: 95806 ==

== ENCOUNTER → 2020-12-19 11:15 | Outpatient (BNVA) | payer MEDICARE, MEDICAID, SELFPAY | PROVIDERS: PCP Internal Medicine; Referring Provider Internal Medicine; Visit Provider Internal Medicine Cardiovascular Disease | DX: I50.32 Chronic diastolic (congestive) heart failure (principal); I35.0 Nonrheumatic aortic (valve) stenosis; N18.6 End stage renal disease; Z99.2 Dependence on renal dialysis | CPT/HCPCS: 99212 ==

== ENCOUNTER → 2021-01-14 09:16 | Outpatient (BNVA) | payer MEDICARE, MEDICAID, SELFPAY | PROVIDERS: PCP Internal Medicine; Visit Provider Hospitalist | DX: G47.33 Obstructive sleep apnea (adult) (pediatric) (principal); J90 Pleural effusion, not elsewhere classified; G47.00 Insomnia, unspecified; I50.9 Heart failure, unspecified; N18.6 End stage renal disease; Z99.2 Dependence on renal dialysis | CPT/HCPCS: 99212 ==

== ENCOUNTER 2021-02-13 07:33 | Outpatient (REF) | payer MEDICARE, MEDICAID, SELFPAY ==
[2021-02-14 14:16] LABS: H Pylori Breath Test Negative (Negative)
== END 2021-02-13 07:34 | disposition home or self-care (01) ==
LOC: HO.LAB 07:33
PROVIDERS: PCP Internal Medicine; Referring Provider Internal Medicine; Visit Provider Internal Medicine Gastroenterology
DX: K21.9 Gastro-esophageal reflux disease without esophagitis (principal); D64.9 Anemia, unspecified
CPT/HCPCS: 36415; 83013; 99211

== ENCOUNTER → 2021-02-20 09:52 | Outpatient (BNVA) | payer MEDICARE, MEDICAID, SELFPAY | PROVIDERS: PCP Internal Medicine; Visit Provider Hospitalist | DX: G47.33 Obstructive sleep apnea (adult) (pediatric) (principal); G47.00 Insomnia, unspecified; J90 Pleural effusion, not elsewhere classified; I50.9 Heart failure, unspecified | CPT/HCPCS: 99212 ==

== ENCOUNTER 2021-05-01 10:29 | Outpatient (REF) | payer MEDICARE, MEDICAID, SELFPAY ==
--- NOTE | ~2021-05-01 | XR_ITS ---
EXAMINATION: XR LUMBOSACRAL SPINE CLINICAL INFORMATION: Low back pain. COMPARISON: None TECHNIQUE: Three views of the lumbosacral spine. FINDINGS: There is normal lumbar lordosis. The vertebral heights are normal. There is grade 1 anterolisthesis L5 over S1. Rest of the vertebral alignment is normal. There is loss of L5-S1 disc height. Rest of the disc heights are normal. There is no lytic or sclerotic process seen. No visible acute fracture. The paravertebral soft tissues are normal. XR/XR lumbar spine 2-3V IMPRESSION: Grade 1 anterolisthesis L5 over S1 with degenerative L5-S1 disc changes.
[2021-05-01 12:08] LABS: Creatinine Urine 101.96 mg/dL
== END 2021-05-01 10:30 | disposition home or self-care (01) ==
LOC: HO.XRAY 10:29
PROVIDERS: PCP Internal Medicine; Visit Provider Internal Medicine
DX: D12.6 Benign neoplasm of colon, unspecified (principal); M54.50 Low back pain, unspecified; E11.65 Type 2 diabetes mellitus with hyperglycemia
CPT/HCPCS: 72100

== ENCOUNTER → 2021-06-03 10:12 | Outpatient (BNVA) | payer MEDICARE, MEDICAID, SELFPAY | PROVIDERS: PCP Internal Medicine; Visit Provider Internal Medicine Endocrinology, Diabetes & Metabolism | DX: E11.65 Type 2 diabetes mellitus with hyperglycemia (principal); E11.22 Type 2 diabetes mellitus with diabetic chronic kidney disease; N18.6 End stage renal disease; Z79.4 Long term (current) use of insulin; Z99.2 Dependence on renal dialysis | CPT/HCPCS: 82947; 99212 ==

== ENCOUNTER 2021-07-08 11:19 | Outpatient (REF) | payer MEDICARE, MEDICAID, SELFPAY ==
--- NOTE | ~2021-07-08 | XR_ITS ---
EXAMINATION: XR CHEST CLINICAL INFORMATION: U07.1 - COVID-19; lingering laryngitis, diminishing cough. COMPARISON: Chest radiographs 11/20/2020, 11/18/2020, 09/16/2020, CT chest 11/04/2020 TECHNIQUE: 2 views of the chest were obtained. FINDINGS: There is generalized enlarged cardiopericardial silhouette similar to prior studies. There is even distribution vascularity. No overt congestion. No Ese B lines. There is no lobar or segmental airspace consolidation. Costophrenic sulci are clear. Suspect subsegmental disc atelectasis left posterior lateral base. The hilar and mediastinal contours are normal. No acute bony abnormality. XR/XR chest 2V IMPRESSION: -Enlarged cardiopericardial silhouette similar to prior studies. -Subsegmental atelectasis left posterior base. -No lobar or segmental airspace consolidation or effusion.
== END 2021-07-08 11:20 | disposition home or self-care (01) ==
LOC: HO.XRAY 11:19
PROVIDERS: PCP Internal Medicine; Visit Provider Dietitian, Registered
DX: U07.1 COVID-19 (principal); E11.65 Type 2 diabetes mellitus with hyperglycemia; Z79.4 Long term (current) use of insulin
CPT/HCPCS: 71046; 97802

== ENCOUNTER 2021-08-14 13:52 | Outpatient (REF) | payer MEDICARE, MEDICAID, SELFPAY ==
--- NOTE | ~2021-08-14 | XR_ITS ---
EXAMINATION: XR ABDOMEN COMPLETE CLINICAL INDICATION: R10.9 - Unspecified abdominal pain COMPARISON: Chest radiographs 07/08/2021, lumbar radiographs 05/01/2021 TECHNIQUE: 3 views of the abdomen. FINDINGS: [place] right diaphragm not completely included in the [id number] on upright projection. Trace amount of free air underlying may not be appreciated. Otherwise, there is no free air or abnormal collections of gas. No bowel obstruction or gaseous dilatation of bowel or pneumatosis. There is scattered stool throughout the colon. No rectal fecal impaction. The visualized lung bases are clear. No visible urinary tract calculi. No acute bony abnormality. Nonspecific otherwise benign-appearing oval calcification or sclerotic density overlying lateral proximal right femur. XR/XR abdomen 3V IMPRESSION: -No bowel obstruction or abnormal collections of gas. -No visible urinary tract calculi.
[2021-08-14 14:11] LABS: MANUAL DIFF FLAG NO
[2021-08-14 14:22] LABS: Basophils Absolute Auto 0.1 X10*3/uL (0.0-0.2); Basophils Percent Auto 0.7 % (0-2); Eosinophils Absolute Auto 0.4 X10*3/uL (0.0-0.4); Eosinophils Percent Auto 4.6 % (0-4); Hematocrit 33.4 % (37.0-47.0); Hemoglobin 10.1 g/dl (12.0-16.0); Imm Gran Abs Auto 0.04 X10*3/uL (0.00-0.03); Imm Gran Pct Auto 0.4 % (0.0-0.4); Mean Corpuscular HGB Conc 30.2 g/dl (31.0-35.0); Mean Platelet Volume 9.8 fL (9.4-12.3); Monocytes Absolute Auto 0.9 X10*3/uL (0.1-1.2); Neutrophils Percent Auto 63.3 % (45-73); Platelet Count 418 X10*3/uL (160-400); Red Blood Count 3.48 X10*6/uL (4.20-5.50); Red Cell Distribution Width 16.5 % (11.0-16.0); White Blood Count 9.4 X10*3/uL (4.8-10.8)
[2021-08-14 14:48] LABS: Alanine Aminotransferase 10 U/L (0-31); Albumin Level 4.1 g/dL (3.5-5.0); Alkaline Phosphatase 127 U/L (39-117); Aspartate Amino Transferase 11 U/L (5-31); Bilirubin Direct 0.2 mg/dL (0.0-0.5); Bilirubin Total 0.5 mg/dL (0.0-1.0); Lipase 70 U/L (8-78); Total Protein 8.1 g/dL (6.5-8.0)
[2021-08-14 14:51] LABS: Lactate Dehydrogenase 181 U/L (122-220)
[2021-08-14 15:14] LABS: Erythrocyte Sedimentation Rate 91 MM/HR (0-20)
== END 2021-08-14 13:53 | disposition home or self-care (01) ==
LOC: HO.LAB 13:52
PROVIDERS: PCP Internal Medicine; Visit Provider Hospitalist
DX: R10.9 Unspecified abdominal pain (principal); G47.33 Obstructive sleep apnea (adult) (pediatric); R06.00 Dyspnea, unspecified; J90 Pleural effusion, not elsewhere classified; I50.9 Heart failure, unspecified; U09.9 Post COVID-19 condition, unspecified; M54.2 Cervicalgia
CPT/HCPCS: 36415; 74021; 80076; 83615; 83690; 85025; 85652; 99212

== ENCOUNTER → 2021-09-02 09:34 | Outpatient (BNVA) | payer MEDICARE, MEDICAID, SELFPAY | PROVIDERS: PCP Internal Medicine; Visit Provider Internal Medicine Endocrinology, Diabetes & Metabolism | DX: E11.65 Type 2 diabetes mellitus with hyperglycemia (principal); E11.22 Type 2 diabetes mellitus with diabetic chronic kidney disease; N18.6 End stage renal disease; Z79.4 Long term (current) use of insulin; Z99.2 Dependence on renal dialysis | CPT/HCPCS: 82947; 99212 ==

== ENCOUNTER → 2021-09-04 13:36 | Outpatient (BNVA) | payer MEDICARE, MEDICAID, SELFPAY | PROVIDERS: PCP Internal Medicine; Referring Provider Internal Medicine; Visit Provider Nurse Practitioner Family | DX: I13.2 Hypertensive heart and chronic kidney disease with heart failure and with stage 5 chronic kidney disease, or end stage renal disease (principal); N18.6 End stage renal disease; I50.32 Chronic diastolic (congestive) heart failure; I25.10 Atherosclerotic heart disease of native coronary artery without angina pectoris; R09.89 Other specified symptoms and signs involving the circulatory and respiratory systems; M54.2 Cervicalgia; I35.0 Nonrheumatic aortic (valve) stenosis; Z99.2 Dependence on renal dialysis; Z98.890 Other specified postprocedural states | CPT/HCPCS: 99212 ==

== ENCOUNTER 2021-09-06 13:46 | Emergency (ER) | payer MEDICARE, MEDICAID, SELFPAY ==
--- NOTE | ~2021-09-06 | US_ITS ---
EXAMINATION: US VENOUS ULTRASOUND WITH DOPPLER LOWER EXTREMITY, RIGHT CLINICAL INFORMATION: COMPARISON: None TECHNIQUE: Ultrasound of the deep veins is performed from the hip to the calf with compression sonography and color and pulse Doppler assessment. Spectral analysis with color-flow imaging is performed. FINDINGS: There is normal venous compression and respiratory variation and augmented flow. The visualized common femoral vein, superficial femoral vein, profunda femoral vein, popliteal vein, and the trifurcation region shows no evidence of deep venous thrombosis. There is no significant popliteal fossa cyst. Thrombophlebitis within the calf vessels at the level of the anterior superficial vein. If the patient's symptoms persist, followup ultrasound in 5 days 7 days might be of value to exclude proximal propagation from a non-visualized calf vein. US/US venous duplex LE RT IMPRESSION: No DVT demonstrated in the right lower extremity. Calf superficial thrombophlebitis.
--- NOTE | ~2021-09-06 | CT_ITS ---
EXAMINATION: CT ABDOMEN AND PELVIS WITHOUT CONTRAST CLINICAL INFORMATION: Left abdominal pain. COMPARISON: No prior CT scan of the abdomen or pelvis. Chest CT dated November 04, 2020. TECHNIQUE: Multidetector volumetric imaging was performed from the superior aspect of the liver through the pubic symphysis. Sagittal and coronal reformatted images were obtained on the technologist's workstation. This CT examination was performed using dose optimization techniques as appropriate, variously including the following: *Automated exposure control *Adjustment of mA and/or kV according to patient size (this includes techniques or standardized protocols for targeted exams where dose is matched to indication/reason for exam; i.e. extremities or head) *Use of iterative reconstruction technique DLP: 601 mGy-cm FINDINGS: Limited by lack of oral and intravenous contrast. LUNG BASES: Mild to moderate cardiomegaly. Coronary arterial calcification, suboptimally evaluated. Calcification of the mitral valve. Suspect decreased blood pool density, raising suspicion for anemia. The lung bases appear clear, with no evidence of inflammation or nodules. LIVER, GALLBLADDER, AND BILIARY TREE: The liver appears unremarkable in size, shape, and attenuation. No focal hepatic lesion or biliary ductal dilatation is appreciated. Unremarkable appearance of the gallbladder. PANCREAS: Unremarkable SPLEEN: Unremarkable ADRENAL GLANDS: Unremarkable KIDNEYS AND URETERS: The kidneys appear unremarkable in size, shape, and attenuation. No hydronephrosis, hydroureter, or calculi seen. BLADDER: Well distended, therefore suboptimally evaluated. Grossly unremarkable. GASTROINTESTINAL TRACT: Small hiatus hernia. Small bowel appears unremarkable. Scattered colonic diverticula without evidence of diverticulitis.Normal-appearing distal ileum and vermiform appendix. ABDOMINAL WALL: No significant hernia is appreciated. LYMPH NODES: No evidence of adenopathy by size criteria. VASCULAR: Diffuse vascular calcification, including small peripheral arteries, raising suspicion for diabetic and/or renal atherosclerosis. PELVIC VISCERA: Uterus not visualized, suggesting prior surgical removal. OSSEOUS STRUCTURES: Wedge compression deformity of T10 with associated perivertebral soft tissue density, age indeterminate, not evident on chest CT dated November 04, 2020. Degenerative changes of lower thoracic spine with multiple Schmorl's nodes. Bilateral spondylolysis with severe disc degenerative change and grade 2 anterolisthesis at L5-S1. CT/CT abdomen pelvis wo con IMPRESSION: Wedge compression deformity of T10 with associated perivertebral soft tissue density, age indeterminate, not evident on chest CT dated November 04, 2020. Recommend clinical correlation. If further imaging is clinically desired, MRI may be of use for further evaluation. Additional findings, as above.
[2021-09-06 14:47] VITALS: BP 161/60; PULSE 75; RESP 16; TEMP 35.6; O2SAT 93; BMI 30.4
[2021-09-06 15:09] LABS: MANUAL DIFF FLAG NO
[2021-09-06 15:12] LABS: Basophils Percent Auto 0.4 % (0-2); Eosinophils Absolute Auto 0.5 X10*3/uL (0.0-0.4); Eosinophils Percent Auto 4.5 % (0-4); Hematocrit 26.6 % (37.0-47.0); Hemoglobin 7.8 g/dl (12.0-16.0); Imm Gran Abs Auto 0.05 X10*3/uL (0.00-0.03); Imm Gran Pct Auto 0.5 % (0.0-0.4); Lymphocytes Absolute Auto 1.7 X10*3/uL (1.2-4.9); Lymphocytes Percent Auto 17.6 % (20-40); Mean Corpuscular HGB Conc 29.3 g/dl (31.0-35.0); Mean Corpuscular Hemoglobin 29.1 pg (27.0-33.0); Mean Corpuscular Volume 99.3 fL (80.0-98.0); Mean Platelet Volume 9.6 fL (9.4-12.3); Monocytes Absolute Auto 0.9 X10*3/uL (0.1-1.2); Monocytes Percent Auto 8.9 % (2-11); Neutrophils Absolute Auto 6.7 x10*3/uL (2.0-8.3); Neutrophils Percent Auto 68.1 % (45-73); Platelet Count 300 X10*3/uL (160-400); Red Blood Count 2.68 X10*6/uL (4.20-5.50); Red Cell Distribution Width 17.1 % (11.0-16.0); White Blood Count 9.9 X10*3/uL (4.8-10.8)
[2021-09-06 15:45] LABS: Anion Gap 19 (12-20); Blood Urea Nitrogen 41 mg/dL (9-16); Calcium 10.1 mg/dL (8.4-10.2); Carbon Dioxide 29 mmol/L (22-29); Chloride 100 mmol/L (96-108); Estimated Glomerular Filt Rate 7; Glucose Random 237 mg/dL (60-115); Potassium 5.9 mmol/L (3.3-5.1); Sodium 142 mmol/L (135-145)
--- NOTE | 2021-09-06 17:30 | ED_ITS ---
HPI - General Adult General Chief complaint: General Medical Stated complaint: ? Clot R Leg Time Seen by Provider: 09/06/21 16:05 Source: patient, family (Daughter) and translator/interpreter Mode of arrival: ambulatory Limitations: no limitations History of Present Illness HPI narrative: 60-year-old female with a past medical history of hypertension, hyperlipidemia, diabetes, ESRD on hemodialysis, CHF diastolic; hypothyroidism; osteoarthritis, aortic stenosis, anemia. Patient walked an for evaluation of swelling in the right lower leg with concern of blood clots in the right lower leg. Patient also been having left-sided abdominal pain for several weeks patient was evaluated by her telephone triage nurse, was prescribed it pain medication muscle relaxant with no relief of the pain. Patient is known to have anemia and multiple blood transfusion in the past, no obvious blood loss patient declined any vaginal or rectal bleeding. Patient also declined any shortness of breath or chest pain patient confirmed that she has been asymptomatic in regard to her chronic anemia. Related Data Home Medications Medication Instructions Recorded Confirmed labetalol 300 mg tablet 300 mg PO BID 11/04/20 09/04/21 prednisolone acetate 1 % eye 1 drp TID 11/04/20 09/04/21 drops,suspension sevelamer carbonate 800 mg tablet 800 mg PO DAILY 12/19/20 09/04/21 hydralazine 100 mg tablet 100 mg PO BID 03/18/21 09/04/21 lisinopril 5 mg tablet mg PO DAILY 08/14/21 09/04/21 pen needle, diabetic 31 gauge x #50 ea 09/02/21 09/04/2104/30 (BD Ultra-Fine Mini Pen Needle) atorvastatin 40 mg tablet 40 mg PO DAILY 09/04/21 09/04/21 Previous Rx's Medication Instructions Recorded insulin aspart U-100 100 unit/mL 3 unit (0.03 mL) subcut TID #0 mL 11/20/20 (3 mL) subcutaneous pen (Novolog Flexpen U-100 Insulin aspart) insulin glargine 100 unit/mL (3 8 unit (0.08 mL) subcut QAM #0 mL 11/20/20 mL) subcutaneous pen (Lantus Solostar U-100 Insulin) blood sugar diagnostic (FreeStyle #300 ea 12/10/20 Lite Strips) flash glucose sensor (FreeStyle #6 kits 12/10/20 Rusty 14 Day Sensor kit) levothyroxine 75 mcg tablet 75 mcg PO DAILY 90 days #90 tabs 12/10/20 albuterol sulfate 90 mcg/actuation 2 inh inhalation Q6H PRN shortness 12/12/20 aerosol inhaler of breath or wheezing 30 days #18 grams AUTO PAP PS6-20 CM h20 humidified #1 ea 01/03/21 AIR pantoprazole 40 mg tablet,delayed 40 mg PO DAILY #90 tabs 01/24/21 release sucralfate 100 mg/mL oral 10 ml PO BID #1,000 mL 01/24/21 suspension furosemide 40 mg tablet 80 mg PO BID@0900,1800 90 days 01/28/21 #360 tabs glucagon 3 mg/actuation nasal 3 mg intranasal ONCE #1 ea 06/03/21 spray (Baqsimi) amlodipine 5 mg tablet 5 mg PO DAILY 30 days #90 tabs 06/18/21 cyclobenzaprine 5 mg tablet 5 mg PO BID PRN muscle spasm 30 06/19/21 days #60 tabs ondansetron HCl 4 mg tablet 4 mg PO DAILY PRN nausea/vomiting 07/28/21 #30 tabs lidocaine 4 % topical patch 2 patch topical DAILY PRN pain #30 08/12/21 (Aspercreme (lidocaine)) ea gabapentin 300 mg capsule 300 mg PO BEDTIME #30 caps 08/14/21 Allergies Allergy/AdvReac Type Severity Reaction Status Date / Time No Known Allergies Allergy Verified 09/06/21 14:51 Review of Systems Review of Systems: All other systems are reviewed and are negative Constitutional: Reports as per HPI and Reports no additional constitutional complaints Eyes: Reports as per HPI and Reports no additional eye complaints Reports system reviewed and no additional complaints, except as documented Cardiovascular: Reports as per HPI and Reports no additional cardiovascular complaints Respiratory: Reports as per HPI and Reports no additional respiratory complaints Gastrointestinal: Reports as per HPI and Reports no additional gastrointestinal complaints Genitourinary: Reports no additional female genitourinary complaints Musculoskeletal: Reports no additional musculoskeletal complaints Skin/Breast: Reports system reviewed and no additional complaints, except as docu Psychiatric: Reports no additional psychiatric complaints Endocrine: Reports no additional endocrine complaints Hematologic/Lymphatic: Reports no additional hematologic/lymphatic complaints Allergic/Immunologic: Reports no additional allergic/immunologic complaints Reports system reviewed and no additional complaints, except as documented and Reports Abnormal speech present [facility] Past Medical History Medical History Abnormal nuclear stress test Anemia Aortic stenosis Congestive heart failure End stage renal disease ESRD on dialysis GI bleed History of renal dialysis Hypercholesterolemia Hypertension Hypertensive cardiovascular disease Hypothyroid Insomnia SLOAN (obstructive sleep apnea) Pleural effusion Type 2 diabetes mellitus with hyperglycemia Surgical History History of colonoscopy History of esophagogastroduodenoscopy (EGD) History of total hysterectomy Family History Family History Mother Chronic kidney disease CAD (coronary artery disease) Father No problems noted. Sister Thyroid cancer Brother No problems noted. Daughter No problems noted. Daughter No problems noted. 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 Blood pressure normal. Heart rate normal. Respiration rate normal. Temperature normal. Oxygen saturation normal. Appearance: Alert. Oriented X3. No acute distress. Head: Normal external exam. Normocephalic. Atraumatic. No Finley signs noted. No raccoon eyes noted Eyes: PERRLA. EOMI. Pale Conjunctiva and sclera and eyelid. ENT: TM's Normal. Pharynx normal. Uvula midline. Moist mucous membranes. No trismus noted. No drooling noted. No muffled voice noted. Neck: Normal inspection. Neck supple. FROM. No adenopathy. Thyroid Normal. No meningeal signs. No neck mass noted. CVS: Normal heart rate and rhythm. Heart sound normal. No murmurs noted. Pulses normal throughout. Respiratory: No respiratory distress. Painless inspiration. Breath sounds normal. No wheezes/rales/rhonchi noted. Chest nontender. No accessory muscle usage noted or decreased air movement noted. Abdomen: Soft and nontender. Bowel sounds normal in all 4 quadrants. No distention noted. No organomegaly noted. No visible injury noted. Back: No CVA tenderness. Full range of motion noted. Skin: Skin warm and dry. Normal skin color. Normal skin turgor. No rashes/lesions/lacerations noted. Extremities: No lower extremity edema. Extremities exhibit normal range of motion. Extremities nontender. Neuro: Oriented X 3. Cranial nerve exam: II-XII are grossly intact No motor deficit. No sensory deficit. Reflexes normal. Course Course Course Narrative: 61-year-old female with chronic anemia found to be anemic today patient is asymptomatic no chest pain or shortness of breath, as per daughter dialysis check her H& H regularly and decide if the patient need transfusion or not. Therefore patient will need no transfusion today. Right lower extremities ultrasound shows no DVT just superficial thrombophlebitis no further intervention is needed. Chronic left-sided abdominal pain CT of the abdomen pelvis revealed wedge compression fracture of T10 of undetermined age, according to daughter this finding was old otherwise CT not revealing any other reason of patient's symptoms. Medical Decision Making Lab Data Lab results reviewed: Yes I reviewed the patient's lab results. Result diagrams: 09/06/21 15:03 09/06/21 15:03 Labs: Lab Results 09/06/21 09/06/21 Range/Units 15:03 15:03 WBC 9.9 (4.8-10.8) X10*3/uL RBC 2.68 L D (4.20-5.50) X10*6/uL Hgb 7.8 L D (12.0-16.0) g/dl Hct 26.6 L D (37.0-47.0) % MCV 99.3 H (80.0-98.0) fL MCH 29.1 (27.0-33.0) pg MCHC 29.3 L (31.0-35.0) g/dl RDW 17.1 H (11.0-16.0) % Plt Count 300 D (160-400) X10*3/uL MPV 9.6 (9.4-12.3) fL Immature Gran % (Auto) 0.5 H (0.0-0.4) % Neut % (Auto) 68.1 (45-73) % Lymph % (Auto) 17.6 L (20-40) % [place] % (Auto) 8.9 (2-11) % Eos % (Auto) 4.5 H (0-4) % Baso % (Auto) 0.4 (0-2) % Lymph # (Auto) 1.7 (1.2-4.9) X10*3/uL [place] # (Auto) 0.9 (0.1-1.2) X10*3/uL Eos # (Auto) 0.5 H (0.0-0.4) X10*3/uL Baso # (Auto) 0.0 (0.0-0.2) X10*3/uL Abs Immat Gran (auto) 0.05 H (0.00-0.03) X10*3/uL Absolute Neuts (auto) 6.7 (2.0-8.3) x10*3/uL Absolute Nucleated RBC 0.000 (0.0-0.012) X10*3/uL Nucleated RBC % (auto) 0.0 (0.0-0.2) /100WBC Sodium 142 (135-145) mmol/L Potassium 5.9 H D (3.3-5.1) mmol/L Chloride 100 (96-108) mmol/L Carbon Dioxide 29 (22-29) mmol/L Anion Gap 19 (12-20) BUN 41 H (9-16) mg/dL Creatinine 6.51 H* (0.5-1.4) mg/dL Estim Creat Clear Calc 9.0 Estimated GFR 7 Random Glucose 237 H (60-115) mg/dL Calcium 10.1 D (8.4-10.2) mg/dL Imaging Data CT abdomen and pelvis: Attestation: I personally reviewed and interpreted this imaging study as follows: Radiologist's impression: Wedge compression deformity of T10 with associated perivertebral soft tissue density, age indeterminate, not evident on chest CT dated November 04, 2020. Recommend clinical correlation. If further imaging is clinically desired, MRI may be of use for further evaluation. ? Lower extremities venous ultrasound: Attestation: I personally reviewed and interpreted this imaging study as follows: Radiologist's impression: No DVT demonstrated in the right lower extremity. Calf superficial thrombophlebitis. Discharge Plan Discharge Clinical Impression: Superficial thrombophlebitis, Abdominal wall pain, Anemia Patient Disposition: Home, Self-Care Instructions: Superficial Thrombophlebitis (ED), Anemia (ED) Prescriptions: No Action levothyroxine 75 mcg tablet 75 mcg PO DAILY 90 Days Qty: 90 3RF pantoprazole 40 mg tablet,delayed release (DR/EC) 40 mg PO DAILY Qty: 90 2RF sucralfate 100 mg/mL suspension 10 ml PO BID Qty: 1000 0RF furosemide 40 mg tablet 80 mg PO BID@0900,1800 90 Days Qty: 360 0RF Protocol: Hold for SBP< HOLD for SBP < : 90 Rx Instructions: every other day amlodipine 5 mg tablet 5 mg PO DAILY 30 Days Qty: 90 4RF Protocol: Hold for SBP< HOLD for SBP < : 90 ondansetron HCl 4 mg tablet 4 mg PO DAILY PRN (Reason: nausea/vomiting) Qty: 30 0RF prednisolone acetate 1 % drops,suspension 1 drp TID labetalol 300 mg tablet 300 mg PO BID sevelamer carbonate 800 mg tablet 800 mg PO DAILY insulin aspart U-100 [Novolog Flexpen U-100 Insulin] 100 unit/mL (3 mL) insulin pen 3 unit subcut TID Qty: 0 0RF Lantus Solostar U-100 Insulin 100 unit/mL (3 mL) insulin pen 8 unit subcut QAM Qty: 0 0RF (DME) FreeStyle Rusty 14 Day Sensor Kit See Rx Instructions .ROUTE .MEDSUPPLY Qty: 6 3RF Rx Instructions: As directed (DME) FreeStyle Lite Strips Strip See Rx Instructions .ROUTE .MEDSUPPLY Qty: 300 3RF Rx Instructions: As directed check the BS TID (DME) AUTO PAP PS6-20 CM h20 humidified AIR See Rx Instructions .Route .MEDSUPPLY Qty: 1 0RF Rx Instructions: As directed hydralazine 100 mg tablet 100 mg PO BID cyclobenzaprine 5 mg tablet 5 mg PO BID PRN (Reason: muscle spasm) 30 Days Qty: 60 1RF lidocaine [Aspercreme (lidocaine)] 4 % adhesive patch,medicated 2 patch topical DAILY PRN (Reason: pain) Qty: 30 0RF albuterol sulfate 90 mcg/actuation HFA aerosol inhaler 2 inh inhalation Q6H PRN (Reason: shortness of breath or wheezing) 30 Days Qty: 18 12RF Baqsimi 3 mg/actuation spray,non-aerosol 3 mg intranasal ONCE Qty: 1 0RF (DME) pen needle, diabetic [BD Ultra-Fine Mini Pen Needle] 31 gauge x 3/16 needle See Rx Instructions .ROUTE .MEDSUPPLY Qty: 50 Rx Instructions: As directed atorvastatin 40 mg tablet 40 mg PO DAILY lisinopril 5 mg tablet PO DAILY gabapentin 300 mg capsule 300 mg PO BEDTIME Qty: 30 6RF Referrals: Po,Mason Casarez MD [Primary Care Provider] -
[2021-09-06 17:46] VITALS: BP 170/66; PULSE 73; RESP 16; TEMP 37; O2SAT 95
[2021-09-06 18:31] VITALS: BP 170/69; PULSE 71; RESP 18; TEMP 37; O2SAT 92
== END 2021-09-06 19:53 | disposition home or self-care (01) ==
PROVIDERS: Emergency Provider Emergency Medicine; PCP Internal Medicine
DX: I80.01 Phlebitis and thrombophlebitis of superficial vessels of right lower extremity (principal); R10.9 Unspecified abdominal pain; R22.41 Localized swelling, mass and lump, right lower limb; D63.1 Anemia in chronic kidney disease; E11.22 Type 2 diabetes mellitus with diabetic chronic kidney disease; I13.2 Hypertensive heart and chronic kidney disease with heart failure and with stage 5 chronic kidney disease, or end stage renal disease; N18.6 End stage renal disease; I50.9 Heart failure, unspecified; Z99.2 Dependence on renal dialysis; E78.5 Hyperlipidemia, unspecified; Z79.02 Long term (current) use of antithrombotics/antiplatelets; Z79.899 Other long term (current) drug therapy; Z79.4 Long term (current) use of insulin
CPT/HCPCS: 36415; 74176; 80048; 85025; 93971; 99284

== ENCOUNTER → 2021-09-23 11:43 | Outpatient (BNVA) | payer MEDICARE, MEDICAID, SELFPAY | PROVIDERS: PCP Internal Medicine; Visit Provider Registered Nurse Diabetes Educator | DX: E11.65 Type 2 diabetes mellitus with hyperglycemia (principal); Z79.4 Long term (current) use of insulin; Z71.89 Other specified counseling | CPT/HCPCS: 99211 ==

== ENCOUNTER 2021-10-14 13:39 | Outpatient (REF) | payer MEDICARE, MEDICAID, SELFPAY ==
--- NOTE | ~2021-10-14 | MM_ITS ---
EXAMINATION: BONE DENSITOMETRY CLINICAL INDICATION: Age-related osteoporosis without current pathological fracture. COMPARISON: None (current study represents initial baseline exam). TECHNIQUE: Using a [employer] DXA System (software version: 13.1) manufactured by [email or web address], dual-energy x-ray absorptiometry was performed of the lumbar spine and left hip. The images are of good technical quality. Summary results are attached. FINDINGS: AP SPINE L3-L4 (excluding L1 and L2): The data of L1-L4 has been changed to exclude the L1 and L2 vertebral bodies, because degenerative changes at these levels may cause overestimation of lumbar spine density. BMD 1.136 g/cm2, Z-score 0.2, T-score -0.5, normal. LEFT FEMUR, NECK: BMD 0.898 g/cm2, Z-score 0.0, T-score -1.0, normal. LEFT FEMUR, TOTAL: BMD 0.996 g/cm2, Z-score 0.5, T-score -0.1, normal. IDENTIFIED RISK FACTORS: Early menopause, secondary osteoporosis, hysterectomy, bilateral oophorectomy, renal. HISTORY OF FRACTURE: None listed. MEDICATIONS: Calcium supplements or multivitamin, vitamin D. MM/XR DEXA axial skeleton IMPRESSION: 1. DIAGNOSIS: Normal bone density based on the lowest T-score value of -1.0 in the femoral neck applying World Health Organization criteria. 2. 10-YEAR FRACTURE RISK PREDICTION, FRAX: According to the guidelines, FRAX calculation should only be performed on patients in the osteopenia bone density category. Therefore, FRAX was not performed on this patient. 3. Treatment Recommendations: NOF guidelines recommend consideration for treatment in postmenopausal women and men age 50 and older presenting with the following: -A hip or vertebral (clinical or morphometric) fracture. -T-score less than or equal to -2.5 at the femoral neck or spine after appropriate evaluation to exclude secondary causes. -Low bone mass at the hip or spine and a 10-year fracture probability by FRAX of greater than or equal to 3% for hip fracture or greater than or equal to 20% for major osteoporotic fracture based on the [place] adapted WHO algorithm. 4. Other Recommendations: All treatment decisions require clinical judgment and consideration of individual patient factors, including patient preferences, comorbidities, previous drug use, risk factors not captured in the FRAX model (e.g. frailty, falls, vitamin D deficiency, increased bone turnover, interval significant decline in bone density) and possible under or overestimation of fracture risk by FRAX. FUTURE SCAN RECOMMENDATION: People with diagnosed cases of osteoporosis or at high risk for fracture should have regular bone mineral density tests. For patients eligible for Medicare, routine testing is allowed once every 2 years. The testing frequency can be increased to one year for patients who have rapidly progressing disease, those who are receiving or discontinuing medical therapy to restore bone mass, or have additional risk factors.
== END 2021-10-14 13:40 | disposition home or self-care (01) ==
LOC: HO.MAMMO 13:39
PROVIDERS: PCP Internal Medicine; Visit Provider Internal Medicine
DX: Z13.820 Encounter for screening for osteoporosis (principal); M81.0 Age-related osteoporosis without current pathological fracture; S22.000A Wedge compression fracture of unspecified thoracic vertebra, initial encounter for closed fracture; Z78.0 Asymptomatic menopausal state
CPT/HCPCS: 77080

== ENCOUNTER → 2021-10-23 09:04 | Outpatient (REF) | payer MEDICARE, MEDICAID, SELFPAY ==
--- NOTE | 2021-10-23 09:06 | CA_ITS ---
Transthoracic Echocardiogram Patient (Last, First, Middle): Joseph Olmstead, Gender: Female Date of : 1960 Age: 61 Procedure Date: 10/23/2021 Procedure Type: Transthoracic Echocardiogram Location: OP Height: 162. cm Weight: 78. kg BSA: 1.83 m2 Heart Rate: 72 bpm BP: 140 / 84 mmHg Cloth Washer Back Tender: HANS Referring MD: Miley Berry [employer] Outboard Motor Assembler: Sharad Vazquez MD Symptoms: I35.0 - Nonrheumatic aortic (valve) stenosis Study Quality: Adequate ECG Rhythm: Sinus Conclusions: - 1. Normal LV systolic function with mild LVH with pseudonormal filling pattern 2. Severely dilated left atrium 3. Moderate aortic stenosis with mean gradient of 37 mmHg 4. Severe mitral and calcification with possible moderate mitral stenosis 5. Mildly elevated right ventricular systolic pressure 6. No gross pericardial effusion Findings Left Ventricle Normal left ventricular size and systolic function. There is mildly increased left ventricular wall thickness. The visually estimated ejection fraction is between 60-65%. Spectral Doppler is indicative of a pseudonormal filling pattern. Right Ventricle Normal right ventricular cavity size and systolic function. Atria The left atrium is severely dilated. There is no evidence of interatrial shunt. The right atrium is mildly dilated. Aortic Valve There is moderate calcification of the aortic valve. There is moderate thickening of the aortic valve. There is moderate aortic valve stenosis. The peak aortic gradient is 68 mmHg.The mean gradient is 37 mmHg. The aortic valve area is 1.33 cm2. There is mild aortic valve regurgitation. Mitral Valve There is severe anterior and posterior mitral leaflet thickening. There is severe mitral annular calcification. There is mild mitral valve regurgitation. There is moderate mitral valve stenosis. Pulmonic Valve The pulmonic valve was not well visualized. Tricuspid Valve Likely normal tricuspid valve structure and function. There is mild tricuspid valve regurgitation. The right ventricular systolic pressure is 41 mmHg. Mildly elevated right atrial pressure. Mild pulmonary hypertension is present. Great Vessels All visible segments of the aorta are normal in size. The pulmonary artery was not well visualized. Venous The inferior vena cava is mildly dilated and collapses less than 50% with inspiration. Pericardium/Pleural There is no evidence of pericardial effusion. Prior Study Comparison Changes noted compared to prior study dated: 11/05/2020. moderate mitral stenosis is present. RV systolic pressure is mildly elevated Measurements 2D Linear Measurements IVSd: 1.47 0.6-0.9/0.6-1.0 cm LVIDd: 5.78 3.9-5.3/4.2-5.9 cm LVIDd Index: 3.16 2.4-3.2/2.2-3.1 cm/m2 LVIDs: 4.08 2.0-3.6 cm LVPWd: 1.17 0.7-1.1 cm LA Diam: 4.90 2.7-3.8/3.0-4.0 cm LAIDs Index: 2.68 1.5-2.3 cm/m2 LV Mass: 420.00 67-162/88-224 g LV Mass Index: 229.51 43-95/49-115 g/m2 LVOT Diam: 2.40 3.0+(-)1.3 cm 2D Systolic Function EF 4C: 57.40 >55% EF 2C: 63.70 >55% EF BiP: 60.70 >55% Mitral Valve MV VTI: 0.62 MV Pk Elías: 2.10 MV Mn Elías: 1.49 MV Pk Grad: 18.00 MV Mn Grad: 10.00 MV Pk E: 2.09 MV PK A: 1.65 MV Decel Time: 266.00 E/A: 1.30 E'Lateral: 5.11 E'Medial: 5.00 E/E' Med: 41.80 E/E' Lat: 40.90 PHT: 78.00 MVA PHT: 2.82 MVA Continuity: 1.89 Decel Holmes: 7.85 MR VTI: 2.12 Aortic Valve AoV Pk Elías: 4.11 AoV Mn Elías: 2.85 AoV VTI: 0.88 AoV Pk Grad: 68.00 Aov Mn Grad: 37.00 SHAR Cont.VTI: 1.33 AI Pk Elías: 4.42 AI Holmes: 2.69 LVOT LVOT Pk Elías: 1.20 LVOT Mn Elías: 0.85 LVOT VTI: 0.26 LVOT Pk Grad: 6.00 LVOT Mn Grad: 4.00 LVOT Diam: 2.40 LVOT Area: 4.52 Diastolic Function MV Pk E: 2.09 MV Pk A: 1.65 E/A: 1.30 E'Medial: 5.00 E/E' Med: 41.80 E' Laterial: 5.11 E/E' Lat: 40.90 Right Ventricle TAPSE (mm): 14.70 TVS' Elías: 9.60 Tricuspid Valve TR Pk Elías: 2.89 TR Pk Grad: 33.00 RA Press: 8.00 RVSP: 41.00 Great Vessels Aorta Sinus of Valsalva: 2.90 2.0-3.5 cm Ao Asc: 3.60 2.1-3.4 cm Updated in Other Vendor System with Status of Final Sharad Vazquez MD electronically signed on 10/23/2021 4:36:10 PM with status of Final
== END ==
LOC: HO.CARD 09:04
PROVIDERS: PCP Internal Medicine; Visit Provider Nurse Practitioner Family
DX: I11.0 Hypertensive heart disease with heart failure (principal); I50.32 Chronic diastolic (congestive) heart failure; I35.0 Nonrheumatic aortic (valve) stenosis
CPT/HCPCS: 93306

== ENCOUNTER 2021-11-04 01:10 | Emergency (ER) | payer MEDICARE, MEDICAID, SELFPAY ==
--- NOTE | ~2021-11-04 | CT_ITS ---
EXAMINATION: CT ABDOMEN AND PELVIS WITHOUT CONTRAST CLINICAL INFORMATION: Left flank pain COMPARISON: 09/06/2021 TECHNIQUE: Multidetector volumetric imaging was performed from the superior aspect of the liver through the pubic symphysis. Sagittal and coronal reformatted images were obtained on the technologist's workstation. This CT examination was performed using dose optimization techniques as appropriate, variously including the following: *Automated exposure control *Adjustment of mA and/or kV according to patient size (this includes techniques or standardized protocols for targeted exams where dose is matched to indication/reason for exam; i.e. extremities or head) *Use of iterative reconstruction technique DLP: 596 mGy-cm FINDINGS: LUNG BASES: Lung bases are clear. Dense coronary artery calcifications. Mitral annular calcification. LIVER, GALLBLADDER, AND BILIARY TREE: The liver is normal in size, shape, and attenuation. No focal hepatic lesion or biliary ductal dilatation is present. The gallbladder is unremarkable with no evidence of radiopaque gallstones, gallbladder wall thickening, or obvious pericholecystic inflammatory changes. PANCREAS: Unremarkable. SPLEEN: Unremarkable. ADRENAL GLANDS: Unremarkable. KIDNEYS AND URETERS: The kidneys are normal in size, shape, and attenuation. No hydronephrosis, hydroureter, or calculi seen. No perinephric stranding. BLADDER: Unremarkable. GASTROINTESTINAL TRACT: The stomach is decompressed. Normal caliber small bowel. There is no obstruction. Colonic diverticulosis present without diverticulitis. Normal appendix. No colonic wall thickening or inflammation. No free air or free fluid. ABDOMINAL WALL: No significant hernia is appreciated. LYMPH NODES: Normal. VASCULAR: Normal caliber aorta with moderate atherosclerotic calcification. PELVIC VISCERA: Uterus not seen. No adnexal mass. OSSEOUS STRUCTURES: No acute or suspicious osseous abnormality. Bilateral L5 pars defects with grade 2 anterolisthesis of L5 on S1. Chronic irregularity of the T10 and T11 vertebral bodies. CT/CT abdomen pelvis wo IV con IMPRESSION: No acute findings in the abdomen or pelvis. No hydronephrosis or nephrolithiasis. No inflammatory changes. Fairly extensive vascular calcifications. Fleischner guidelines were followed.
[2021-11-04 01:36] VITALS: BP 170/90; PULSE 83; RESP 16; TEMP 36.6; O2SAT 99; BMI 28.4
[2021-11-04 04:00] VITALS: BP 161/74; PULSE 73; RESP 18; TEMP 37.1; O2SAT 95
[2021-11-04 04:05] LABS: Basophils Absolute Auto 0.1 X10*3/uL (0.0-0.2); Basophils Percent Auto 0.6 % (0-2); Eosinophils Absolute Auto 0.4 X10*3/uL (0.0-0.4); Eosinophils Percent Auto 2.8 % (0-4); Hematocrit 32.8 % (37.0-47.0); Hemoglobin 10.2 g/dl (12.0-16.0); Imm Gran Abs Auto 0.06 X10*3/uL (0.00-0.03); Imm Gran Pct Auto 0.4 % (0.0-0.4); Lymphocytes Absolute Auto 1.2 X10*3/uL (1.2-4.9); MANUAL DIFF FLAG NO; Mean Corpuscular HGB Conc 31.1 g/dl (31.0-35.0); Mean Corpuscular Volume 93.2 fL (80.0-98.0); Mean Platelet Volume 10.4 fL (9.4-12.3); Monocytes Absolute Auto 1.2 X10*3/uL (0.1-1.2); Monocytes Percent Auto 8.8 % (2-11); Neutrophils Absolute Auto 10.5 x10*3/uL (2.0-8.3); Neutrophils Percent Auto 78.4 % (45-73); Platelet Count 266 X10*3/uL (160-400); Red Blood Count 3.52 X10*6/uL (4.20-5.50); Red Cell Distribution Width 17.3 % (11.0-16.0); White Blood Count 13.4 X10*3/uL (4.8-10.8)
--- NOTE | 2021-11-04 04:06 | PC.NURSE ---
pt a&ox3, vss, fistula L arm, pt reporting 10/10 mid back pain, labs drawn by tech, pending ED provider.
--- NOTE | 2021-11-04 04:18 | ED_ITS ---
HPI - General Adult General Chief complaint: Abdominal Pain Stated complaint: pain in side Time Seen by Provider: 11/04/21 04:12 Source: patient and family Limitations: no limitations History of Present Illness HPI narrative: This is a 7-year-old female with history of end-stage renal disease, last dialysis yesterday, also history of aortic stenosis, CHF, diabetes, who complains of left lower back pain radiating to her left lower abdomen for about a week, worse since yesterday. Patient has had associated vomiting. She denies any fever. She denies any constipation or diarrhea. She is essentially anuric. Pain is not worse with movement. He denies any skin rash or changes in the area of pain. Related Data Home Medications Medication Instructions Recorded Confirmed labetalol 300 mg tablet 300 mg PO BID 11/04/20 09/30/21 prednisolone acetate 1 % eye 1 drp TID 11/04/20 09/30/21 drops,suspension sevelamer carbonate 800 mg tablet 800 mg PO DAILY 12/19/20 09/30/21 hydralazine 100 mg tablet 100 mg PO BID 03/18/21 09/30/21 lisinopril 5 mg tablet mg PO DAILY 08/14/21 09/30/21 pen needle, diabetic 31 gauge x #50 ea 09/02/21 09/30/2104/30 (BD Ultra-Fine Mini Pen Needle) atorvastatin 40 mg tablet 40 mg PO DAILY 09/04/21 09/30/21 Previous Rx's Medication Instructions Recorded insulin glargine 100 unit/mL (3 8 unit (0.08 mL) subcut QAM #0 mL 11/20/20 mL) subcutaneous pen (Lantus Solostar U-100 Insulin) blood sugar diagnostic (FreeStyle #300 ea 12/10/20 Lite Strips) levothyroxine 75 mcg tablet 75 mcg PO DAILY 90 days #90 tabs 12/10/20 albuterol sulfate 90 mcg/actuation 2 inh inhalation Q6H PRN shortness 12/12/20 aerosol inhaler of breath or wheezing 30 days #18 grams AUTO PAP PS6-20 CM h20 humidified #1 ea 01/03/21 AIR pantoprazole 40 mg tablet,delayed 40 mg PO DAILY #90 tabs 01/24/21 release furosemide 40 mg tablet 80 mg PO BID@0900,1800 90 days 01/28/21 #360 tabs glucagon 3 mg/actuation nasal 3 mg intranasal ONCE #1 ea 06/03/21 spray (Baqsimi) amlodipine 5 mg tablet 5 mg PO DAILY 30 days #90 tabs 06/18/21 cyclobenzaprine 5 mg tablet 5 mg PO BID PRN muscle spasm 30 06/19/21 days #60 tabs ondansetron HCl 4 mg tablet 4 mg PO DAILY PRN nausea/vomiting 07/28/21 #30 tabs lidocaine 4 % topical patch 2 patch topical DAILY PRN pain #30 08/12/21 (Aspercreme (lidocaine)) ea pen needle, diabetic 31 gauge x #100 ea 09/23/21/ (Comfort EZ Pen [place]) insulin aspart U-100 100 unit/mL See Rx Instructions subcut TID #15 09/24/21 (3 mL) subcutaneous pen (Novolog mL Flexpen U-100 Insulin aspart) flash glucose sensor (FreeStyle #6 kits 09/30/21 Rusty 14 Day Sensor kit) gabapentin 100 mg capsule 100 mg PO BEDTIME 30 days #30 caps 09/30/21 baclofen 10 mg tablet 10 mg PO TID #20 tabs 11/04/21 Allergies Allergy/AdvReac Type Severity Reaction Status Date / Time No Known Allergies Allergy Verified 09/30/21 14:52 Review of Systems Review of Systems: Yes all other systems are reviewed and are negative Constitutional: Constitutional: Reports as per HPI and Denies fever(s) Eyes: Eyes: Reports as per HPI and Reports no additional eye complaints ENT: Reports system reviewed and no additional complaints, except as documented, Reports as per HPI, Denies nasal congestion, Denies nasal discharge and Denies sore throat Cardiovascular: Cardiovascular: Reports as per HPI, Denies chest pain and Denies dyspnea Respiratory: Respiratory: Reports as per HPI, Denies cough and Denies dyspnea Gastrointestinal: Gastrointestinal: Reports as per HPI, Denies abdominal pain, Denies diarrhea, Reports nausea and Reports vomiting Genitourinary: Genitourinary: Reports as per HPI, Denies hematuria and Denies dysuria Musculoskeletal: Musculoskeletal: Reports no additional musculoskeletal complaints, Reports back pain and Denies numbness Integumentary/Breasts: Skin/Breast: Reports as per HPI and Denies rash Neurologic: Reports as per HPI, Denies focal weakness and Denies numbness Psychiatric: Psychiatric: Reports no additional psychiatric complaints and Reports as per HPI Endocrine: Endocrine: Reports no additional endocrine complaints and Reports as per HPI Hematologic/Lymphatic: Hematologic/Lymphatic: Reports no additional hematologic/lymphatic complaints, Reports as per HPI and Reports other (No peripheral edema) [facility] Past Medical History Medical History Abnormal nuclear stress test Anemia Aortic stenosis Congestive heart failure End stage renal disease ESRD on dialysis GI bleed History of renal dialysis Hypercholesterolemia Hypertension Hypertensive cardiovascular disease Hypothyroid Insomnia SLOAN (obstructive sleep apnea) Pleural effusion Type 2 diabetes mellitus with hyperglycemia Surgical History History of colonoscopy History of esophagogastroduodenoscopy (EGD) History of total hysterectomy Family History Family History Mother Chronic kidney disease CAD (coronary artery disease) Father No problems noted. Sister Thyroid cancer Brother No problems noted. Daughter No problems noted. Daughter No problems noted. 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 Cognitive needs: Yes (walker) Hearing needs: No Vision needs: Yes (Glasses) Physical Exam ED Vital Signs: Vital Signs - 24 hr 11/04/21 01:36 11/04/21 04:00 Temperature 97.9 F 98.7 F Pulse Rate 83 73 Respiratory Rate 16 18 Blood Pressure 170/90 H 161/74 H Pulse Oximetry 99 95 Oxygen Delivery Method Room Air BMI result Body Mass Index 28.4 Const Other: Patient not acutely ill-appearing General: no acute distress Orientation/consciousness: patient oriented x3 HENMT Head: Yes normal to inspection General nose exam: Normal external nose present Mouth: moist mucous membranes Throat: Yes posterior oropharynx normal, Yes tonsils normal and Yes uvula midline Eyes Eyelids: Yes eyelids normal Conjunctivae: conjunctivae normal Pupils: Equal, round and reactive pupils present Neck Neck: Yes supple Resp Effort & Inspection: normal respiratory effort Auscultation: clear to auscultation bilaterally Cardio Rate: regular rate Rhythm: regular rhythm Heart sounds: S1 normal heart sound present, S2 normal heart sound present, no gallops, Murmur heart sound present systolic and no rubs GI Other: soft nontender nondistended Inspection: No distended Palpation (GI): Soft to palpation and nontender Auscultation: normal bowel sounds Back/Spine/Pelvis Other: left CVA tenderness; no rash or evidence of shingles in the area Skin General skin exam: other (Warm and dry) Neuro General: patient oriented x3 and CN's II-XI intact bilaterally Cranial nerves: Yes Equal, round and reactive pupils present Extrem General: Yes no pedal edema Psych Affect: normal affect Attitude: cooperative Medical Decision Making [facility] Narrative Medical decision making narrative: patient with pain which she later describes as being like cramps or spasms on her left side, causes her to catch her breath at times. No evidence of any acute renal or retroperitoneal or abdominal pathology to explain the pain. No clinical evidence of shingles. Patient may have muscle spasm. Will prescribe baclofen and the patient can follow-up with her primary care physician Lab Data Result diagrams: 11/04/21 03:58 11/04/21 03:58 Labs: Lab Results 11/04/21 11/04/21 Range/Units 03:58 03:58 WBC 13.4 H (4.8-10.8) X10*3/uL RBC 3.52 L D (4.20-5.50) X10*6/uL Hgb 10.2 L D (12.0-16.0) g/dl Hct 32.8 L D (37.0-47.0) % MCV 93.2 (80.0-98.0) fL MCH 29.0 (27.0-33.0) pg MCHC 31.1 (31.0-35.0) g/dl RDW 17.3 H (11.0-16.0) % Plt Count 266 (160-400) X10*3/uL MPV 10.4 (9.4-12.3) fL Immature Gran % (Auto) 0.4 (0.0-0.4) % Neut % (Auto) 78.4 H (45-73) % Lymph % (Auto) 9.0 L (20-40) % Real % (Auto) 8.8 (2-11) % Eos % (Auto) 2.8 (0-4) % Baso % (Auto) 0.6 (0-2) % Lymph # (Auto) 1.2 (1.2-4.9) X10*3/uL Real # (Auto) 1.2 (0.1-1.2) X10*3/uL Eos # (Auto) 0.4 (0.0-0.4) X10*3/uL Baso # (Auto) 0.1 (0.0-0.2) X10*3/uL Abs Immat Gran (auto) 0.06 H (0.00-0.03) X10*3/uL Absolute Neuts (auto) 10.5 H (2.0-8.3) x10*3/uL Absolute Nucleated RBC 0.000 (0.0-0.012) X10*3/uL Nucleated RBC % (auto) 0.0 (0.0-0.2) /100WBC Sodium 145 (135-145) mmol/L Potassium 4.4 D (3.3-5.1) mmol/L Chloride 99 (96-108) mmol/L Carbon Dioxide 29 (22-29) mmol/L Anion Gap 21 H (12-20) BUN 31 H (9-16) mg/dL Creatinine 5.46 H* (0.5-1.4) mg/dL Estim Creat Clear Calc 11.2 Estimated GFR 8 Random Glucose 143 H (60-115) mg/dL Calcium 9.7 (8.4-10.2) mg/dL Total Bilirubin 0.4 (0.0-1.0) mg/dL AST 10 (5-31) U/L ALT 12 (0-31) U/L Alkaline Phosphatase 124 H (39-117) U/L Total Protein 6.8 (6.5-8.0) g/dL Albumin 3.7 (3.5-5.0) g/dL Imaging Data CT abdomen and pelvis without contrast: Radiologist's impression: IMPRESSION: No acute findings in the abdomen or pelvis. No hydronephrosis or nephrolithiasis. No inflammatory changes. Fairly extensive vascular calcifications.? Discharge Plan Discharge Clinical Impression: Back muscle spasm Patient Disposition: Home, Self-Care Instructions: Muscle Spasm (ED), Back Pain (ED) Additional Instructions: Start the baclofen as prescribed. Follow up with your primary care physician. Return for any new or worsened symptoms. Do not use the Baclofen in addition to the cyclobenzaprine (if you are still on this medication ) Prescriptions: New baclofen 10 mg tablet 10 mg PO TID Qty: 20 0RF No Action levothyroxine 75 mcg tablet 75 mcg PO DAILY 90 Days Qty: 90 3RF pantoprazole 40 mg tablet,delayed release (DR/EC) 40 mg PO DAILY Qty: 90 2RF furosemide 40 mg tablet 80 mg PO BID@0900,1800 90 Days Qty: 360 0RF Protocol: Hold for SBP< HOLD for SBP < : 90 Rx Instructions: every other day amlodipine 5 mg tablet 5 mg PO DAILY 30 Days Qty: 90 4RF Protocol: Hold for SBP< HOLD for SBP < : 90 ondansetron HCl 4 mg tablet 4 mg PO DAILY PRN (Reason: nausea/vomiting) Qty: 30 0RF (DME) pen needle, diabetic [Comfort EZ Pen [place]] 31 gauge x 5/16 needle See Rx Instructions .Route Qty: 100 5RF Rx Instructions: uses 4X/day insulin aspart U-100 [Novolog Flexpen U-100 Insulin] 100 unit/mL (3 mL) insulin pen See Rx Instructions subcut TID Qty: 15 5RF Rx Instructions: 6-10 units subcutaneously 3 times a day; inject up to 30 units daily prednisolone acetate 1 % drops,suspension 1 drp TID labetalol 300 mg tablet 300 mg PO BID sevelamer carbonate 800 mg tablet 800 mg PO DAILY Lantus Solostar U-100 Insulin 100 unit/mL (3 mL) insulin pen 8 unit subcut QAM Qty: 0 0RF (DME) FreeStyle Lite Strips Strip See Rx Instructions .ROUTE .MEDSUPPLY Qty: 300 3RF Rx Instructions: As directed check the BS TID gabapentin 100 mg capsule 100 mg PO BEDTIME 30 Days Qty: 30 3RF (DME) FreeStyle Rusty 14 Day Sensor Kit See Rx Instructions .ROUTE .MEDSUPPLY Qty: 6 3RF Rx Instructions: As directed (DME) AUTO PAP PS6-20 CM h20 humidified AIR See Rx Instructions .Route .MEDSUPPLY Qty: 1 0RF Rx Instructions: As directed hydralazine 100 mg tablet 100 mg PO BID cyclobenzaprine 5 mg tablet 5 mg PO BID PRN (Reason: muscle spasm) 30 Days Qty: 60 1RF lidocaine [Aspercreme (lidocaine)] 4 % adhesive patch,medicated 2 patch topical DAILY PRN (Reason: pain) Qty: 30 0RF albuterol sulfate 90 mcg/actuation HFA aerosol inhaler 2 inh inhalation Q6H PRN (Reason: shortness of breath or wheezing) 30 Days Qty: 18 12RF Baqsimi 3 mg/actuation spray,non-aerosol 3 mg intranasal ONCE Qty: 1 0RF (DME) pen needle, diabetic [BD Ultra-Fine Mini Pen Needle] 31 gauge x 3/16 needle See Rx Instructions .ROUTE .MEDSUPPLY Qty: 50 Rx Instructions: As directed atorvastatin 40 mg tablet 40 mg PO DAILY lisinopril 5 mg tablet PO DAILY
[2021-11-04 04:23] LABS: Alanine Aminotransferase 12 U/L (0-31); Albumin Level 3.7 g/dL (3.5-5.0); Alkaline Phosphatase 124 U/L (39-117); Anion Gap 21 (12-20); Aspartate Amino Transferase 10 U/L (5-31); Bilirubin Total 0.4 mg/dL (0.0-1.0); Blood Urea Nitrogen 31 mg/dL (9-16); Calcium 9.7 mg/dL (8.4-10.2); Carbon Dioxide 29 mmol/L (22-29); Chloride 99 mmol/L (96-108); Creatinine Clr Calc Pharmacy 11.2; Estimated Glomerular Filt Rate 8; Glucose Random 143 mg/dL (60-115); Potassium 4.4 mmol/L (3.3-5.1); Sodium 145 mmol/L (135-145); Total Protein 6.8 g/dL (6.5-8.0)
[2021-11-04] MEDS: Morphine Sulfate 4 MG/ML CARTRIDGE IVPUSH (05:06)
[2021-11-04] MEDS: ondansetron HCL 4 MG/2 ML VIAL IVPUSH (05:06)
--- NOTE | 2021-11-04 05:15 | PC.NURSE ---
IV placed in R AC, medicated per provider order, CT results pending.
== END 2021-11-04 05:49 | disposition home or self-care (01) ==
PROVIDERS: Emergency Provider Emergency Medicine
DX: M62.830 Muscle spasm of back (principal); R10.9 Unspecified abdominal pain; M54.50 Low back pain, unspecified; I12.0 Hypertensive chronic kidney disease with stage 5 chronic kidney disease or end stage renal disease; N18.6 End stage renal disease; Z20.822 Contact with and (suspected) exposure to COVID-19; Z99.2 Dependence on renal dialysis; Z79.899 Other long term (current) drug therapy
CPT/HCPCS: 36415; 74176; 80048; 80053; 80076; 83690; 85025; 93880; 96374; 96375; 99284; J2270; J2405

== ENCOUNTER 2021-11-04 09:20 | Outpatient (REF) | payer MEDICARE, MEDICAID, SELFPAY ==
--- NOTE | ~2021-11-04 | US_ITS ---
EXAMINATION: US EXTRACRANIAL CAROTID DUPLEX, BILATERAL CLINICAL INFORMATION: Carotid bruit COMPARISON: None TECHNIQUE: Real-time ultrasound and Doppler techniques (integrating B-mode 2-D vascular images, Doppler spectral analysis and color-flow Doppler imaging) were utilized to interrogate the extracranial carotid arteries, the vertebral arteries and proximal subclavian arteries bilaterally. The degree of stenosis is determined by criteria similar to NASCET. FINDINGS: Right Side: 1. There is mild atherosclerotic plaque seen in the bifurcation/proximal ICA region. 2. The common carotid artery PSV proximally is 107 cm/s and distally 102 cm/s. 3. The proximal internal carotid artery velocities are 61 cm/s systolic and 17 cm/s diastolic. 4. The proximal external carotid artery PSV is 70 cm/s. 5. The vertebral artery shows antegrade flow. 6. The subclavian artery waveforms are normal. Left Side: 1. There is mild atherosclerotic plaque seen in the bifurcation/proximal ICA region. 2. The common carotid artery PSV proximally is 182 cm/s and distally 100 cm/s. 3. The proximal internal carotid artery velocities are 81 cm/s systolic and 15 cm/s diastolic. 4. The proximal external carotid artery PSV is 60 cm/s. 5. The vertebral artery shows antegrade flow. 6. The subclavian artery waveforms are normal, however velocities are elevated. US/US carotid duplex BI IMPRESSION: 1. RIGHT: Minimal, non-hemodynamically significant stenosis of the proximal right internal carotid artery corresponding to a 0-49% stenosis by velocity criteria. 2. LEFT: Minimal, non-hemodynamically significant stenosis of the proximal left internal carotid artery corresponding to a 0-49% stenosis by velocity criteria. 3. Elevated velocities in the left subclavian artery suggesting stenosis.
== END 2021-11-04 09:21 | disposition home or self-care (01) ==
LOC: HO.US 09:20
PROVIDERS: Visit Provider Nurse Practitioner Family
DX: Z13.89 Encounter for screening for other disorder (principal)
CPT/HCPCS: 93880

== ENCOUNTER 2021-11-04 10:21 | Emergency (ER) | payer MEDICARE, MEDICAID, SELFPAY ==
[2021-11-04 10:59] VITALS: BP 149/77; PULSE 74; RESP 16; TEMP 36.6; O2SAT 98; BMI 29.5
--- NOTE | 2021-11-04 12:48 | ED_ITS ---
HPI - General Adult General Chief complaint: General Medical Stated complaint: L flank pain Time Seen by Provider: 11/04/21 12:35 Source: patient, family and palliative medicine physician Mode of arrival: ambulatory Limitations: language barrier History of Present Illness HPI narrative: 61-year-old female with a past medical history of hypertension, hyperlipidemia, diabetes, ESRD on hemodialysis (M,W,F), CHF diastolic; hypothyroidism; osteoarthritis, aortic stenosis, anemia here with left sided back pain which radiates to left abdomen since yesterday which is worsened with movement. Patient reports intermittent pain over the last few months. Had been taking a muscle relaxant with improvement but pain more severe last night. No fevers, chills, diarrhea, constipation, nausea/vomiting. Seen last evening and had negative CT A/P. Sent home with baclofen but has not picked up the prescription or tried this yet. She woke up in pain and came here right away. She does not make urine. Related Data Home Medications Medication Instructions Recorded Confirmed labetalol 300 mg tablet 300 mg PO BID 11/04/20 09/30/21 prednisolone acetate 1 % eye 1 drp TID 11/04/20 09/30/21 drops,suspension sevelamer carbonate 800 mg tablet 800 mg PO DAILY 12/19/20 09/30/21 hydralazine 100 mg tablet 100 mg PO BID 03/18/21 09/30/21 lisinopril 5 mg tablet mg PO DAILY 08/14/21 09/30/21 pen needle, diabetic 31 gauge x #50 ea 09/02/21 09/30/2104/30 (BD Ultra-Fine Mini Pen Needle) atorvastatin 40 mg tablet 40 mg PO DAILY 09/04/21 09/30/21 Previous Rx's Medication Instructions Recorded insulin glargine 100 unit/mL (3 8 unit (0.08 mL) subcut QAM #0 mL 11/20/20 mL) subcutaneous pen (Lantus Solostar U-100 Insulin) blood sugar diagnostic (FreeStyle #300 ea 12/10/20 Lite Strips) levothyroxine 75 mcg tablet 75 mcg PO DAILY 90 days #90 tabs 12/10/20 albuterol sulfate 90 mcg/actuation 2 inh inhalation Q6H PRN shortness 12/12/20 aerosol inhaler of breath or wheezing 30 days #18 grams AUTO PAP PS6-20 CM h20 humidified #1 ea 01/03/21 AIR pantoprazole 40 mg tablet,delayed 40 mg PO DAILY #90 tabs 01/24/21 release furosemide 40 mg tablet 80 mg PO BID@0900,1800 90 days 01/28/21 #360 tabs glucagon 3 mg/actuation nasal 3 mg intranasal ONCE #1 ea 06/03/21 spray (Baqsimi) amlodipine 5 mg tablet 5 mg PO DAILY 30 days #90 tabs 06/18/21 cyclobenzaprine 5 mg tablet 5 mg PO BID PRN muscle spasm 30 06/19/21 days #60 tabs ondansetron HCl 4 mg tablet 4 mg PO DAILY PRN nausea/vomiting 07/28/21 #30 tabs lidocaine 4 % topical patch 2 patch topical DAILY PRN pain #30 08/12/21 (Aspercreme (lidocaine)) ea pen needle, diabetic 31 gauge x #100 ea 09/23/2106/30 (Comfort EZ Pen [place]) insulin aspart U-100 100 unit/mL See Rx Instructions subcut TID #15 09/24/21 (3 mL) subcutaneous pen (Novolog mL Flexpen U-100 Insulin aspart) flash glucose sensor (FreeStyle #6 kits 09/30/21 Rusty 14 Day Sensor kit) gabapentin 100 mg capsule 100 mg PO BEDTIME 30 days #30 caps 09/30/21 baclofen 10 mg tablet 10 mg PO TID #20 tabs 11/04/21 oxycodone 5 mg tablet 5 mg PO Q6H PRN pain #5 tabs 11/04/21 Allergies Allergy/AdvReac Type Severity Reaction Status Date / Time No Known Allergies Allergy Verified 09/30/21 14:52 Review of Systems Review of Systems: Yes all other systems are reviewed and are negative Constitutional: Constitutional: Reports no additional constitutional complaints, Denies body ache(s), Denies chills, Denies fever(s), Denies headache(s) and Denies weakness Eyes: Eyes: Reports no additional eye complaints and Denies change in vision ENT: Reports system reviewed and no additional complaints, except as documented, Denies dizziness, Denies headache(s), Denies nasal congestion, Denies nasal discharge and Denies neck pain Cardiovascular: Cardiovascular: Reports no additional cardiovascular complaints, Denies chest pain, Denies leg edema and Denies dyspnea Respiratory: Respiratory: Reports no additional respiratory complaints, Denies cough and Denies dyspnea Gastrointestinal: Gastrointestinal: Reports no additional gastrointestinal complaints, Reports abdominal pain, Denies diarrhea, Denies nausea and Denies vomiting Genitourinary: Genitourinary: Reports no additional female genitourinary complaints and Denies urinary incontinence Musculoskeletal: Musculoskeletal: Reports no additional musculoskeletal complaints, Reports back pain, Denies arthralgias, Denies joint swelling, Denies neck pain, Denies numbness and Denies tingling Integumentary/Breasts: Skin/Breast: Reports system reviewed and no additional complaints, except as docu and Denies rash Neurologic: Reports system reviewed and no additional complaints, except as do cumented, Denies dizziness, Denies headache(s), Denies numbness, Denies tingling and Denies weakness PMFSH Past Medical History Attestation statement: The following information was validated with the patient. Source: old records reviewed and nursing notes reviewed Medical History Abnormal nuclear stress test Anemia Aortic stenosis Congestive heart failure End stage renal disease ESRD on dialysis GI bleed History of renal dialysis Hypercholesterolemia Hypertension Hypertensive cardiovascular disease Hypothyroid Insomnia SLOAN (obstructive sleep apnea) Pleural effusion Type 2 diabetes mellitus with hyperglycemia Surgical History History of colonoscopy History of esophagogastroduodenoscopy (EGD) History of total hysterectomy Family History Family History Mother Chronic kidney disease CAD (coronary artery disease) Father No problems noted. Sister Thyroid cancer Brother No problems noted. Daughter No problems noted. Daughter No problems noted. 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 Cognitive needs: Yes (walker) Hearing needs: No Vision needs: Yes (Glasses) Physical Exam ED Vital Signs: Vital Signs - 24 hr 11/04/21 10:59 11/04/21 15:29 Temperature 98 F Pulse Rate 74 71 Respiratory Rate 16 Blood Pressure 149/77 H 145/68 H Pulse Oximetry 98 91 L Oxygen Delivery Method Room Air Room Air BMI result Body Mass Index 29.5 Const General: cooperative, healthy appearing and comfortable Orientation/consciousness: patient oriented x3 Limitations: no limitations HENMT Head: Yes normal to inspection Ears: hearing grossly normal bilaterally Eyes General: appearance normal, both eyes and all related structures Pupils: Equal, round and reactive pupils present Neck Neck: Yes normal visual inspection Chest Chest palpation & inspection: normal inspection of the chest Resp Effort & Inspection: normal respiratory effort Auscultation: clear to auscultation bilaterally Cardio Rate: regular rate Rhythm: regular rhythm Peripheral pulses: Peripheral pulses 2+ throughout GI Inspection: Yes normal to inspection Palpation (GI): Soft to palpation and Tenderness to palpation present (GI) (MILD LUQ with no rebound or guarding) Auscultation: normal bowel sounds General: Yes no CVA tenderness Back/Spine/Pelvis Other: Tenderness to left paraspinal muscle mid thoracic/upper lumbar area which is worsened with rotation of the trunk and movement. Pain worsened with left straight leg raise. Back: no CVA tenderness Skin General skin exam: no rashes or lesions noted Neuro General: patient oriented x3 and moves all extremities Cranial nerves: Yes Equal, round and reactive pupils present Cognition (Neuro): normal cognition Motor exam (neuro): 5/5 motor strength present throughout Sensory Exam: Normal double simultaneous stimulation for sensation Deep tendon reflexes (DTR's): Right patellar reflex intensity grade: 2+ and Left patellar reflex intensity grade: 2+ Extrem General: Yes normal to inspection, Yes no pedal edema and Yes no calf tenderness Course Course Course Narrative: 1450-labs at baseline. Patient woken from sleep to evaluate pain level. Improved but still 8/10. Will repeat dose of analgesia and re-assess Reevaluation(s) Reevaluation #1: 1600-Patient feels much improved. Likely MS. Plan for discharge home with several tablets of oxycodone and recommendation to burr picker baclofen and start this today. Reviewed worrisome signs/symptoms with patient and when to seek additional care. Comfortable with discharge home. Medical Decision Making MDM Narrative Medical decision making narrative: 61yo female here with intermittent left sided back pain with radiation to abdomen over months worsened in last 24 hrs with ER visit last night with negative non contrast CT A/P. Sent home with baclofen which patient has not picked up or tried yet. Woke with pain and brought herself back to the ER. On exam patient has some mild left side back tenderness which seems MS. No CVAT. Mild tenderness to LUQ with no reboound or guarding. ?radicular pain from back. Skin normal-no rash. VSS. Will repeat labs. Patient does not make urine so no need for UA. Will give anlagesia and re-assess Medical Records Medical records reviewed: Yes I reviewed the patient's medical records. Lab Data Lab results reviewed: Yes I reviewed the patient's lab results. Result diagrams: 11/04/21 13:25 11/04/21 13:25 Labs: Lab Results 11/04/21 11/04/21 Range/Units 13:25 13:25 WBC 10.3 (4.8-10.8) X10*3/uL RBC 3.65 L (4.20-5.50) X10*6/uL Hgb 10.5 L (12.0-16.0) g/dl Hct 34.7 L (37.0-47.0) % MCV 95.1 (80.0-98.0) fL MCH 28.8 (27.0-33.0) pg MCHC 30.3 L (31.0-35.0) g/dl RDW 17.2 H (11.0-16.0) % Plt Count 261 (160-400) X10*3/uL MPV 10.6 (9.4-12.3) fL Immature Gran % (Auto) 0.5 H (0.0-0.4) % Neut % (Auto) 72.9 (45-73) % Lymph % (Auto) 13.5 L (20-40) % Mower % (Auto) 9.5 (2-11) % Eos % (Auto) 2.8 (0-4) % Baso % (Auto) 0.8 (0-2) % Lymph # (Auto) 1.4 (1.2-4.9) X10*3/uL Mower # (Auto) 1.0 (0.1-1.2) X10*3/uL Eos # (Auto) 0.3 (0.0-0.4) X10*3/uL Baso # (Auto) 0.1 (0.0-0.2) X10*3/uL Abs Immat Gran (auto) 0.05 H (0.00-0.03) X10*3/uL Absolute Neuts (auto) 7.5 (2.0-8.3) x10*3/uL Absolute Nucleated RBC 0.000 (0.0-0.012) X10*3/uL Nucleated RBC % (auto) 0.0 (0.0-0.2) /100WBC Sodium 143 (135-145) mmol/L Potassium 5.0 (3.3-5.1) mmol/L Chloride 95 L (96-108) mmol/L Carbon Dioxide 29 (22-29) mmol/L Anion Gap 24 H (12-20) BUN 37 H (9-16) mg/dL Creatinine 6.29 H* (0.5-1.4) mg/dL Estim Creat Clear Calc 9.6 Estimated GFR 7 Random Glucose 200 H (60-115) mg/dL Calcium 10.3 H D (8.4-10.2) mg/dL Total Bilirubin 0.5 (0.0-1.0) mg/dL Direct Bilirubin 0.2 (0.0-0.5) mg/dL AST 9 (5-31) U/L ALT 11 (0-31) U/L Alkaline Phosphatase 104 (39-117) U/L Total Protein 7.0 (6.5-8.0) g/dL Albumin 3.8 (3.5-5.0) g/dL Lipase 23 (8-78) U/L Discharge Plan Discharge Clinical Impression: Back muscle spasm Patient Disposition: Home, Self-Care Instructions: Muscle Spasm (ED), Back Pain (ED) Additional Instructions: Heat or ice Start your baclofen Follow-up with your PCP Blood work looks good Prescriptions: New oxycodone 5 mg tablet 5 mg PO Q6H PRN (Reason: pain) Qty: 5 0RF Rx Instructions: Partial Fill upon patient request. No Action levothyroxine 75 mcg tablet 75 mcg PO DAILY 90 Days Qty: 90 3RF pantoprazole 40 mg tablet,delayed release (DR/EC) 40 mg PO DAILY Qty: 90 2RF furosemide 40 mg tablet 80 mg PO BID@0900,1800 90 Days Qty: 360 0RF Protocol: Hold for SBP< HOLD for SBP < : 90 Rx Instructions: every other day amlodipine 5 mg tablet 5 mg PO DAILY 30 Days Qty: 90 4RF Protocol: Hold for SBP< HOLD for SBP < : 90 ondansetron HCl 4 mg tablet 4 mg PO DAILY PRN (Reason: nausea/vomiting) Qty: 30 0RF (DME) pen needle, diabetic [Comfort EZ Pen [place]] 31 gauge x 5/16 needle See Rx Instructions .Route Qty: 100 5RF Rx Instructions: uses 4X/day insulin aspart U-100 [Novolog Flexpen U-100 Insulin] 100 unit/mL (3 mL) insulin pen See Rx Instructions subcut TID Qty: 15 5RF Rx Instructions: 6-10 units subcutaneously 3 times a day; inject up to 30 units daily prednisolone acetate 1 % drops,suspension 1 drp TID labetalol 300 mg tablet 300 mg PO BID sevelamer carbonate 800 mg tablet 800 mg PO DAILY Lantus Solostar U-100 Insulin 100 unit/mL (3 mL) insulin pen 8 unit subcut QAM Qty: 0 0RF baclofen 10 mg tablet 10 mg PO TID Qty: 20 0RF (DME) FreeStyle Lite Strips Strip See Rx Instructions .ROUTE .MEDSUPPLY Qty: 300 3RF Rx Instructions: As directed check the BS TID gabapentin 100 mg capsule 100 mg PO BEDTIME 30 Days Qty: 30 3RF (DME) FreeStyle Rusty 14 Day Sensor Kit See Rx Instructions .ROUTE .MEDSUPPLY Qty: 6 3RF Rx Instructions: As directed (DME) AUTO PAP PS6-20 CM h20 humidified AIR See Rx Instructions .Route .MEDSUPPLY Qty: 1 0RF Rx Instructions: As directed hydralazine 100 mg tablet 100 mg PO BID cyclobenzaprine 5 mg tablet 5 mg PO BID PRN (Reason: muscle spasm) 30 Days Qty: 60 1RF lidocaine [Aspercreme (lidocaine)] 4 % adhesive patch,medicated 2 patch topical DAILY PRN (Reason: pain) Qty: 30 0RF albuterol sulfate 90 mcg/actuation HFA aerosol inhaler 2 inh inhalation Q6H PRN (Reason: shortness of breath or wheezing) 30 Days Qty: 18 12RF Baqsimi 3 mg/actuation spray,non-aerosol 3 mg intranasal ONCE Qty: 1 0RF (DME) pen needle, diabetic [BD Ultra-Fine Mini Pen Needle] 31 gauge x 3/16 needle See Rx Instructions .ROUTE .MEDSUPPLY Qty: 50 Rx Instructions: As directed atorvastatin 40 mg tablet 40 mg PO DAILY lisinopril 5 mg tablet PO DAILY Referrals: Po,Mason Casarez MD [Primary Care Provider] - 5 days Interventions: ED Discharge Assessment Last Done: 11/04/21 16:15 Discharge Date/Time: 11/04/21 16:16 Print Language: Wolof
[2021-11-04] MEDS: diazePAM 2 MG TABLET PO ×2 (13:03→14:45)
[2021-11-04] MEDS: oxyCODONE HCl Immed Release 5 MG TABLET PO ×2 (13:03→14:45)
[2021-11-04 13:33] LABS: MANUAL DIFF FLAG NO
[2021-11-04 13:34] LABS: Basophils Absolute Auto 0.1 X10*3/uL (0.0-0.2); Basophils Percent Auto 0.8 % (0-2); Eosinophils Absolute Auto 0.3 X10*3/uL (0.0-0.4); Eosinophils Percent Auto 2.8 % (0-4); Hematocrit 34.7 % (37.0-47.0); Hemoglobin 10.5 g/dl (12.0-16.0); Imm Gran Abs Auto 0.05 X10*3/uL (0.00-0.03); Imm Gran Pct Auto 0.5 % (0.0-0.4); Lymphocytes Absolute Auto 1.4 X10*3/uL (1.2-4.9); Lymphocytes Percent Auto 13.5 % (20-40); Mean Corpuscular HGB Conc 30.3 g/dl (31.0-35.0); Mean Corpuscular Hemoglobin 28.8 pg (27.0-33.0); Mean Corpuscular Volume 95.1 fL (80.0-98.0); Mean Platelet Volume 10.6 fL (9.4-12.3); Monocytes Percent Auto 9.5 % (2-11); Neutrophils Absolute Auto 7.5 x10*3/uL (2.0-8.3); Neutrophils Percent Auto 72.9 % (45-73); Platelet Count 261 X10*3/uL (160-400); Red Blood Count 3.65 X10*6/uL (4.20-5.50); Red Cell Distribution Width 17.2 % (11.0-16.0); White Blood Count 10.3 X10*3/uL (4.8-10.8)
[2021-11-04 14:17] LABS: Alanine Aminotransferase 11 U/L (0-31); Albumin Level 3.8 g/dL (3.5-5.0); Alkaline Phosphatase 104 U/L (39-117); Anion Gap 24 (12-20); Aspartate Amino Transferase 9 U/L (5-31); Bilirubin Direct 0.2 mg/dL (0.0-0.5); Bilirubin Total 0.5 mg/dL (0.0-1.0); Blood Urea Nitrogen 37 mg/dL (9-16); Calcium 10.3 mg/dL (8.4-10.2); Carbon Dioxide 29 mmol/L (22-29); Chloride 95 mmol/L (96-108); Glucose Random 200 mg/dL (60-115); Lipase 23 U/L (8-78); Sodium 143 mmol/L (135-145)
[2021-11-04 14:20] LABS: Creatinine Clr Calc Pharmacy 9.6; Estimated Glomerular Filt Rate 7
--- NOTE | 2021-11-04 14:47 | PC.NURSE ---
pt medicated for pain per order, will continue to monitor.
[2021-11-04 15:29] VITALS: BP 145/68; PULSE 71; O2SAT 91
== END 2021-11-04 16:16 | disposition home or self-care (01) ==
PROVIDERS: Nurse Practitioner Family; Emergency Provider Emergency Medicine; PCP Internal Medicine
DX: R10.9 Unspecified abdominal pain (principal); Z79.899 Other long term (current) drug therapy
CPT/HCPCS: 36415; 80048; 80076; 83690; 85025

== ENCOUNTER 2021-11-08 18:29 | Emergency (ER) | payer MEDICARE, MEDICAID, SELFPAY ==
--- NOTE | ~2021-11-08 | CT_ITS ---
EXAMINATION: CT HEAD WITHOUT CONTRAST CLINICAL INFORMATION: Altered mental status COMPARISON: CTA head and neck September 17, 2020 TECHNIQUE: Contiguous axial imaging was performed from the skull base to vertex without intravenous administration of contrast. This CT examination was performed using dose optimization techniques as appropriate, variously including the following: *Automated exposure control *Adjustment of mA and/or kV according to patient size (this includes techniques or standardized protocols for targeted exams where dose is matched to indication/reason for exam; i.e. extremities or head) *Use of iterative reconstruction technique DLP: 846 mGy-cm FINDINGS: There is no evidence of acute intracranial hemorrhage or territorial infarction. No abnormal mass effect or midline shift is appreciated. Malcolm-white differentiation is well preserved. No extra-axial fluid collections. The ventricular system and cortical sulci are prominent, consistent with mild volume loss. There are areas of low density in the periventricular and subcortical white matter, most consistent with sequelae of microvascular ischemic change. The osseous structures and soft tissues are normal. There are calcifications of the cavernous internal carotid arteries. The visualized paranasal sinuses and mastoid air cells are well aerated. CT/CT head/brain wo IV con IMPRESSION: Chronic microvascular ischemic changes with no CT evidence of acute intracranial abnormality.
--- NOTE | ~2021-11-08 | CT_ITS ---
EXAMINATION: CT CHEST WITHOUT CONTRAST CLINICAL INFORMATION: Short of breath COMPARISON: Chest radiograph 07/08/2021. CT from 11/04/2020 and 09/06/2021. TECHNIQUE: Multidetector volumetric CT imaging of the chest was done. Axial MIP volume rendering provided. Sagittal and coronal reformatted images were obtained. This CT examination was performed using dose optimization techniques as appropriate, variously including the following: *Automated exposure control *Adjustment of mA and/or kV according to patient size (this includes techniques or standardized protocols for targeted exams where dose is matched to indication/reason for exam; i.e. extremities or head) *Use of iterative reconstruction technique DLP: 1352 mGy-cm in conjunction with head CT FINDINGS: CERTIFIED PROFESSIONAL CONTROLLER: Prominent cardiac silhouette. LUNGS: The central airways are patent. Patchy nodular opacities are seen throughout both lungs with groundglass appearance. Mild septal thickening. No pneumothorax. MEDIASTINUM: Enlarged heart. No pericardial effusion. No mediastinal lymphadenopathy. CORONARY ARTERY CALCIFICATION: Moderate coronary artery calcification. PLEURA: There is no pleural effusion. No pleural mass or thickening. AXILLA: No lymphadenopathy. UPPER ABDOMEN: Unremarkable. OSSEOUS STRUCTURES: No acute or suspicious osseous abnormality. Compared to the prior abdominal CT, similar destructive changes at the inferior endplate of the T10 vertebral body. Diffusely sclerotic appearance of the bones. CT/CT chest wo IV con IMPRESSION: Mild septal thickening. Patchy groundglass nodular opacity throughout the lungs. The appearance is most suggestive of interstitial and alveolar edema. Infectious process is less likely. Fleischner guidelines were followed.
--- NOTE | ~2021-11-08 | XR_ITS ---
EXAMINATION: XR CHEST CLINICAL INFORMATION: Assess for endotracheal tube placement. COMPARISON: 07/08/2021 chest radiographs. TECHNIQUE: Frontal view of the chest was obtained. FINDINGS: Support devices: Endotracheal tube tip terminates approximately 3.5 cm proximal to danni. Enteric tube tip not included on the study but seen below the left hemidiaphragm. No significant abnormality is noted involving the heart, lungs, mediastinum, bony thorax or soft tissues. XR/XR chest 1V IMPRESSION: 1. Endotracheal tube tip approximately 2.5 cm proximal to danni. 2. No acute cardiopulmonary process.
[2021-11-08 19:00] VITALS: BP 214/98; PULSE 121; O2SAT 95
[2021-11-08 19:02] VITALS: BP 211/123; PULSE 99; RESP 20; O2SAT 98
--- NOTE | 2021-11-08 19:16 | ECG_ITS ---
Test Reason : ams Blood Pressure : / mmHG Vent. Rate : 112 BPM Atrial Rate : 112 BPM P-R Int : 174 ms QRS Dur : 140 ms QT Int : 404 ms P-R-T Axes : 028 038 006 degrees QTc Int : 551 ms Poor data quality, interpretation may be adversely affected Sinus tachycardia with Premature supraventricular complexes Right bundle branch block Abnormal ECG When compared with ECG of 17-NOV-2020 16:47, Premature supraventricular complexes are now Present Heart rate has increased Referred By: Jose Roberto Wang Electronically Signed By:GREYSON SARAVIA
[2021-11-08 20:20] LABS: B Type Natriuretic Peptide 4809 pg/mL (<100)
[2021-11-08 20:25] LABS: Lactic Acid 2.2 mmol/L (0.5-2.0)
--- NOTE | 2021-11-08 20:25 | ED.AMS ---
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 Patient is also having some muscle twitching. Related Data Home Medications Medication Instructions Recorded Confirmed labetalol 300 mg tablet 300 mg PO BID 11/04/20 09/30/21 prednisolone acetate 1 % eye 1 drp TID 11/04/20 09/30/21 drops,suspension sevelamer carbonate 800 mg tablet 800 mg PO DAILY 12/19/20 09/30/21 hydralazine 100 mg tablet 100 mg PO BID 03/18/21 09/30/21 lisinopril 5 mg tablet mg PO DAILY 08/14/21 09/30/21 pen needle, diabetic 31 gauge x #50 ea 09/02/21 09/30/2104/30 (BD Ultra-Fine Mini Pen Needle) Previous Rx's Medication Instructions Recorded blood sugar diagnostic (FreeStyle #300 ea 12/10/20 Lite Strips) albuterol sulfate 90 mcg/actuation 2 inh inhalation Q6H PRN shortness 12/12/20 aerosol inhaler of breath or wheezing 30 days #18 grams AUTO PAP PS6-20 CM h20 humidified #1 ea 01/03/21 AIR pantoprazole 40 mg tablet,delayed 40 mg PO DAILY #90 tabs 01/24/21 release furosemide 40 mg tablet 80 mg PO BID@0900,1800 90 days 01/28/21 #360 tabs glucagon 3 mg/actuation nasal 3 mg intranasal ONCE #1 ea 06/03/21 spray (Baqsimi) amlodipine 5 mg tablet 5 mg PO DAILY 30 days #90 tabs 06/18/21 lidocaine 4 % topical patch 2 patch topical DAILY PRN pain #30 08/12/21 (Aspercreme (lidocaine)) ea pen needle, diabetic 31 gauge x #100 ea 09/23/2106/30 (Comfort EZ Pen [place]) insulin aspart U-100 100 unit/mL See Rx Instructions subcut TID #15 09/24/21 (3 mL) subcutaneous pen (Novolog mL Flexpen U-100 Insulin aspart) flash glucose sensor (FreeStyle #6 kits 09/30/21 Rusty 14 Day Sensor kit) gabapentin 100 mg capsule 100 mg PO BEDTIME 30 days #30 caps 09/30/21 baclofen 10 mg tablet 10 mg PO TID #20 tabs 11/04/21 oxycodone 5 mg tablet 5 mg PO Q6H PRN pain #5 tabs 11/04/21 atorvastatin 40 mg tablet 40 mg PO DAILY #90 tabs 11/06/21 cyclobenzaprine 5 mg tablet 5 mg PO BID PRN muscle spasm 30 11/06/21 days #60 tabs insulin glargine 100 unit/mL (3 8 unit (0.08 mL) subcut QAM #15 mL 11/06/21 mL) subcutaneous pen (Lantus Solostar U-100 Insulin) levothyroxine 75 mcg tablet 75 mcg PO DAILY 90 days #90 tabs 11/06/21 ondansetron HCl 4 mg tablet 4 mg PO DAILY PRN nausea/vomiting 11/06/21 #30 tabs Allergies Allergy/AdvReac Type Severity Reaction Status Date / Time No Known Allergies Allergy Verified 09/30/21 14:52 Review of Systems Review of Systems: Pertinent positives and negatives as stated in HPI 10 point review of systems is otherwise negative. [facility] Past Medical History Source: nursing notes reviewed Medical History Abnormal nuclear stress test Anemia Aortic stenosis Congestive heart failure End stage renal disease ESRD on dialysis GI bleed History of renal dialysis Hypercholesterolemia Hypertension Hypertensive cardiovascular disease Hypothyroid Insomnia SLOAN (obstructive sleep apnea) Pleural effusion Type 2 diabetes mellitus with hyperglycemia Surgical History History of colonoscopy History of esophagogastroduodenoscopy (EGD) History of total hysterectomy Family History Family History Mother Chronic kidney disease CAD (coronary artery disease) Father No problems noted. Sister Thyroid cancer Brother No problems noted. Daughter No problems noted. Daughter No problems noted. 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 GENERAL: Well developed, well nourished, in moderate to severe distress. HEAD: Normocephalic/atraumatic, EYES: PERRLA, EOMI EARS: Ext canals without abnormality, TMs non-bulging and non-erythematous NOSE: Nares patent bilateral OROPHARYNX: no oral lesions noted, posterior pharynx clear NECK: Supple, no adenopathy LUNGS: Normal breath sounds. No adventitious sounds or accessory muscle use. SpO2<98> CARDIOVASCULAR: Regular rate and rhythm without noted murmurs ABDOMEN: Soft, non-tender, non-distended with bowel sounds. MUSCULOSKELETAL: No tenderness, deformities, or effusions noted on gross inspection. EXTREMITIES: No cyanosis, clubbing or edema. SKIN: Inspection of the skin reveals no rashes NEUROLOGIC: Alert and oriented x 1. Strength and sensation to light touch were grossly intact x 4. Course Course Course Narrative: 61-year-old female with history and clinical presentation most consistent with back within encephalopathy as there is no clinical evidence to suggest neurologic etiology or infection. On review of all lab work the leukocytosis is likely reactive and hemoglobin is chronically stable. Patient required medications for agitation prior to obtaining CT scan. I discussed the case with inpatient hospitalist and he accepts pending CT scan and chemistries. Signed out to Dr Maya. Reevaluation(s) Reevaluation #1: I discussed the case with Dr. Uriostegui, nephrology, who agrees that this is baclofen encephalopathy and recommends admission, Narcan for any residual affects from the oxycodone. Time: 21:05 MDM - Altered Mental Status Lab Data Result diagrams: 11/08/21 20:55 11/08/21 19:50 Labs: Lab Results 11/08/21 11/08/21 11/08/21 Range/Units 19:50 19:50 20:55 WBC 13.1 H (4.8-10.8) X10*3/uL RBC 3.76 L (4.20-5.50) X10*6/uL Hgb 10.7 L (12.0-16.0) g/dl Hct 35.6 L (37.0-47.0) % MCV 94.7 (80.0-98.0) fL MCH 28.5 (27.0-33.0) pg MCHC 30.1 L (31.0-35.0) g/dl RDW 17.2 H (11.0-16.0) % Plt Count 406 H D (160-400) X10*3/uL MPV 10.6 (9.4-12.3) fL Immature Gran % (Auto) 0.5 H (0.0-0.4) % Neut % (Auto) 84.2 H (45-73) % Lymph % (Auto) 8.8 L (20-40) % [place] % (Auto) 5.4 (2-11) % Eos % (Auto) 0.5 (0-4) % Baso % (Auto) 0.6 (0-2) % Lymph # (Auto) 1.2 (1.2-4.9) X10*3/uL [place] # (Auto) 0.7 (0.1-1.2) X10*3/uL Eos # (Auto) 0.1 (0.0-0.4) X10*3/uL Baso # (Auto) 0.1 (0.0-0.2) X10*3/uL Abs Immat Gran (auto) 0.07 H (0.00-0.03) X10*3/uL Absolute Neuts (auto) 11.0 H (2.0-8.3) x10*3/uL Absolute Nucleated RBC 0.000 (0.0-0.012) X10*3/uL Nucleated RBC % (auto) 0.0 (0.0-0.2) /100WBC PT (10.0-13.1) SEC INR (0.9-1.1) VBG pH (7.32-7.43) VBG pCO2 mmHg VBG pO2 mmHg VBG HCO3 (22-26) mmol/L VBG O2 Saturation % VBG Base Excess mmol/L Lactic Acid 2.2 H* (0.5-2.0) mmol/L Troponin I High Sens < 3.5 (<3.5-17.0) ng/L B-Natriuretic Peptide 4809 H (<100) pg/mL 11/08/21 11/08/21 Range/Units 20:56 21:04 WBC (4.8-10.8) X10*3/uL RBC (4.20-5.50) X10*6/uL Hgb (12.0-16.0) g/dl Hct (37.0-47.0) % MCV (80.0-98.0) fL MCH (27.0-33.0) pg MCHC (31.0-35.0) g/dl RDW (11.0-16.0) % Plt Count (160-400) X10*3/uL MPV (9.4-12.3) fL Immature Gran % (Auto) (0.0-0.4) % Neut % (Auto) (45-73) % Lymph % (Auto) (20-40) % [place] % (Auto) (2-11) % Eos % (Auto) (0-4) % Baso % (Auto) (0-2) % Lymph # (Auto) (1.2-4.9) X10*3/uL [place] # (Auto) (0.1-1.2) X10*3/uL Eos # (Auto) (0.0-0.4) X10*3/uL Baso # (Auto) (0.0-0.2) X10*3/uL Abs Immat Gran (auto) (0.00-0.03) X10*3/uL Absolute Neuts (auto) (2.0-8.3) x10*3/uL Absolute Nucleated RBC (0.0-0.012) X10*3/uL Nucleated RBC % (auto) (0.0-0.2) /100WBC PT 11.9 (10.0-13.1) SEC INR 1.0 (0.9-1.1) VBG pH 7.38 (7.32-7.43) VBG pCO2 43 mmHg VBG pO2 51 mmHg VBG HCO3 26 (22-26) mmol/L VBG O2 Saturation 73.0 % VBG Base Excess 0.9 mmol/L Lactic Acid (0.5-2.0) mmol/L Troponin I High Sens (<3.5-17.0) ng/L B-Natriuretic Peptide (<100) pg/mL ECG Data ECG #1: Attestation: I personally reviewed and interpreted this ECG as follows: Prior ECG tracings: available for review Interpretation: Normal sinus rhythm, HR-90, RBBB, no STEMI, AR within normal limits. Critical Care Time Critical Care Time Critical Care Time: Yes Total Critical Care Time: 30 Attestation: I attest to the critical care time documented. Discharge Plan Discharge Clinical Impression: Change in mental status, ESRD (end stage renal disease) on dialysis, CHF (congestive heart failure), Hypertension, Adverse effect of baclofen, Diabetes Patient Disposition: Admitted As Inpatient Prescriptions: No Action pantoprazole 40 mg tablet,delayed release (DR/EC) 40 mg PO DAILY Qty: 90 2RF furosemide 40 mg tablet 80 mg PO BID@0900,1800 90 Days Qty: 360 0RF Protocol: Hold for SBP< HOLD for SBP < : 90 Rx Instructions: every other day amlodipine 5 mg tablet 5 mg PO DAILY 30 Days Qty: 90 4RF Protocol: Hold for SBP< HOLD for SBP < : 90 (DME) pen needle, diabetic [Comfort EZ Pen [place]] 31 gauge x 5/16 needle See Rx Instructions .Route Qty: 100 5RF Rx Instructions: uses 4X/day insulin aspart U-100 [Novolog Flexpen U-100 Insulin] 100 unit/mL (3 mL) insulin pen See Rx Instructions subcut TID Qty: 15 5RF Rx Instructions: 6-10 units subcutaneously 3 times a day; inject up to 30 units daily ondansetron HCl 4 mg tablet 4 mg PO DAILY PRN (Reason: nausea/vomiting) Qty: 30 0RF levothyroxine 75 mcg tablet 75 mcg PO DAILY 90 Days Qty: 90 3RF cyclobenzaprine 5 mg tablet 5 mg PO BID PRN (Reason: muscle spasm) 30 Days Qty: 60 1RF insulin glargine [Lantus Solostar U-100 Insulin] 100 unit/mL (3 mL) insulin pen 8 unit subcut QAM Qty: 15 11RF atorvastatin 40 mg tablet 40 mg PO DAILY Qty: 90 2RF prednisolone acetate 1 % drops,suspension 1 drp TID labetalol 300 mg tablet 300 mg PO BID sevelamer carbonate 800 mg tablet 800 mg PO DAILY baclofen 10 mg tablet 10 mg PO TID Qty: 20 0RF oxycodone 5 mg tablet 5 mg PO Q6H PRN (Reason: pain) Qty: 5 0RF Rx Instructions: Partial Fill upon patient request. (DME) FreeStyle Lite Strips Strip See Rx Instructions .ROUTE .MEDSUPPLY Qty: 300 3RF Rx Instructions: As directed check the BS TID gabapentin 100 mg capsule 100 mg PO BEDTIME 30 Days Qty: 30 3RF (DME) FreeStyle Rusty 14 Day Sensor Kit See Rx Instructions .ROUTE .MEDSUPPLY Qty: 6 3RF Rx Instructions: As directed (DME) AUTO PAP PS6-20 CM h20 humidified AIR See Rx Instructions .Route .MEDSUPPLY Qty: 1 0RF Rx Instructions: As directed hydralazine 100 mg tablet 100 mg PO BID lidocaine [Aspercreme (lidocaine)] 4 % adhesive patch,medicated 2 patch topical DAILY PRN (Reason: pain) Qty: 30 0RF albuterol sulfate 90 mcg/actuation HFA aerosol inhaler 2 inh inhalation Q6H PRN (Reason: shortness of breath or wheezing) 30 Days Qty: 18 12RF Baqsimi 3 mg/actuation spray,non-aerosol 3 mg intranasal ONCE Qty: 1 0RF (DME) pen needle, diabetic [BD Ultra-Fine Mini Pen Needle] 31 gauge x 3/16 needle See Rx Instructions .ROUTE .MEDSUPPLY Qty: 50 Rx Instructions: As directed lisinopril 5 mg tablet PO DAILY
[2021-11-08 20:28] LABS: Troponin-I High Sensitivity < 3.5 ng/L (<3.5-17.0)
--- NOTE | 2021-11-08 20:38 | PC.NURSE ---
provider and this nurse attempted IV access and to finish remaining blood work and recollects. unable to obtain access.
[2021-11-08 21:01] LABS: MANUAL DIFF FLAG NO
[2021-11-08 21:02] LABS: Basophils Absolute Auto 0.1 X10*3/uL (0.0-0.2); Basophils Percent Auto 0.6 % (0-2); Eosinophils Absolute Auto 0.1 X10*3/uL (0.0-0.4); Eosinophils Percent Auto 0.5 % (0-4); Hematocrit 35.6 % (37.0-47.0); Hemoglobin 10.7 g/dl (12.0-16.0); Imm Gran Abs Auto 0.07 X10*3/uL (0.00-0.03); Imm Gran Pct Auto 0.5 % (0.0-0.4); Lymphocytes Absolute Auto 1.2 X10*3/uL (1.2-4.9); Lymphocytes Percent Auto 8.8 % (20-40); Mean Corpuscular HGB Conc 30.1 g/dl (31.0-35.0); Mean Corpuscular Hemoglobin 28.5 pg (27.0-33.0); Mean Corpuscular Volume 94.7 fL (80.0-98.0); Mean Platelet Volume 10.6 fL (9.4-12.3); Monocytes Absolute Auto 0.7 X10*3/uL (0.1-1.2); Monocytes Percent Auto 5.4 % (2-11); Neutrophils Percent Auto 84.2 % (45-73); Platelet Count 406 X10*3/uL (160-400); Red Blood Count 3.76 X10*6/uL (4.20-5.50); Red Cell Distribution Width 17.2 % (11.0-16.0); White Blood Count 13.1 X10*3/uL (4.8-10.8)
[2021-11-08 21:10] LABS: VBG Base Excess 0.9 mmol/L; VBG HCO3 26 mmol/L (22-26); VBG pCO2 43 mmHg; VBG pH 7.38 (7.32-7.43); VBG pO2 51 mmHg
[2021-11-08 21:19] LABS: Venous Blood Gas Refer to POC result
[2021-11-08 21:19] LABS: Prothrombin Time 11.9 SEC (10.0-13.1)
[2021-11-08 21:54] LABS: Reflex Lactate? Lactic Acid Added
[2021-11-08] MEDS: LORazepam 0.5 MG TABLET PO (22:02)
--- NOTE | 2021-11-08 22:08 | PC.NURSE ---
Unable to obtain updated VS as pt. was agitated and unable to sit still long enough, complaining of tightness in the arm. Ativan given per APR.
[2021-11-08] MEDS: Naloxone HCl Nasal 4 MG SPRAY NOSTRILALT (22:21)
[2021-11-08 22:23] VITALS: BP 194/74; PULSE 95; RESP 18
[2021-11-08] MEDS: diphenhydrAMINE HCL 25 MG TABLET PO (22:48)
--- NOTE | 2021-11-08 22:51 | PC.NURSE ---
pt medicated per provider order, pt disoriented/confused, having difficulty sitting still, per daughters pt is usually a&ox4, daughters at bedside.
[2021-11-08] MEDS: Midazolam HCl/PF 2 MG/2 ML VIAL 0.5 MG IM (23:22)
--- NOTE | 2021-11-08 23:26 | PC.NURSE ---
medicated per provider order, pt remains restless, disoriented and confused.
[2021-11-09] MEDS: Midazolam HCl/PF 2 MG/2 ML VIAL 0.5 MG IM ×2 (00:05→00:43)
[2021-11-09] MEDS: OLANZapine 10 MG VIAL 2.5 MG IM (01:54)
[2021-11-09] MEDS: diphenhydrAMINE HCL 50 MG/ML VIAL 25 MG IM (01:54)
--- NOTE | 2021-11-09 01:57 | PC.NURSE ---
medicated per provider order, IM inj right deltoid, pt tolerated well.
--- NOTE | 2021-11-09 02:52 | PC.NURSE ---
attempted CT scan w pt, pt unable to tolerate due to inability to stay still.
[2021-11-09] MEDS: Haloperidol Lactate 5 MG/ML VIAL IM ×2 (05:22→06:37)
[2021-11-09] MEDS: Ziprasidone Mesylate 20 MG VIAL 10 MG IM ×2 (06:37)
[2021-11-09 07:18] LABS: Alanine Aminotransferase 14 U/L (0-31); Alkaline Phosphatase 110 U/L (39-117); Anion Gap 32 (12-20); Aspartate Amino Transferase 28 U/L (5-31); Bilirubin Total 0.5 mg/dL (0.0-1.0); Blood Urea Nitrogen 63 mg/dL (9-16); Carbon Dioxide 22 mmol/L (22-29); Chloride 102 mmol/L (96-108); Creatinine Clr Calc Pharmacy 7.3; Estimated Glomerular Filt Rate 5; Glucose Random 129 mg/dL (60-115); Potassium 6.3 mmol/L (3.3-5.1); Sodium 150 mmol/L (135-145); Total Protein 7.3 g/dL (6.5-8.0)
--- NOTE | 2021-11-09 07:35 | ECG_ITS ---
Test Reason : ams Blood Pressure : / mmHG Vent. Rate : 090 BPM Atrial Rate : 090 BPM P-R Int : 166 ms QRS Dur : 142 ms QT Int : 412 ms P-R-T Axes : 050 016 020 degrees QTc Int : 504 ms Normal sinus rhythm Right bundle branch block Abnormal ECG When compared with ECG of 08-NOV-2021 20:15, Premature supraventricular complexes are no longer Present Heart rate has decreased Referred By: Jose Roberto Wang Electronically Signed By:GREYSON SARAVIA
[2021-11-09 07:51] LABS: Ammonia 40 umol/L (13-55)
[2021-11-09 07:54] LABS: ~Lactic Acid-LAB USE ONLY 1.2 mmol/L (0.5-2.0)
[2021-11-09 08:00] VITALS: BP 116/65; PULSE 81; RESP 20; O2SAT 95
[2021-11-09] MEDS: Insulin Regular, Human 100 UNIT/ML 3 ML VIAL IVPUSH (08:07)
[2021-11-09] MEDS: Sodium Bicarbonate 8.4% 50 MEQ/50 ML SYRINGE IVPUSH (08:09)
[2021-11-09] MEDS: Calcium Gluconate/NaCl,Iso-Osm 2 GM/100 ML PLAST..BAG IV (08:17)
--- NOTE | 2021-11-09 11:25 | PHA.MEDREC ---
Pharmacy Consult ? Medication Reconciliation Pharmacy has completed the medication reconciliation. Patient is very confused (see admission note). Spoke to HCP, daughter Shahida. Went over medication list. Noticed many duplicate meds being filled from same and different classes. Daughter explains that [facility] blindly puts medication on auto refill and her PCP answers all requests. Of note, patient has filled medications from 11/06 including Gabapentin 300mg and 100mg, cyclobenzaprine, and lisinopril, ALL OF WHICH SHE IS NO LONGER TAKING. Gabapentin was stopped due to increased somnolence. Patient is now on losartan in place of lisinopril. ALSO of note, patient labetalol has been increased to 300mg, hydralazine is discontinued, and prednisolone eye drops, although not filled recently, is still an active med. Thanks Anders
[2021-11-09 13:27] VITALS: BP 135/87; PULSE 98; RESP 23; O2SAT 95
[2021-11-09] MEDS: diphenhydrAMINE HCL 50 MG/ML VIAL 25 MG IVPUSH ×2 (13:37→19:13)
[2021-11-09 14:00] VITALS: BP 126/41; PULSE 79; RESP 14; O2SAT 97
[2021-11-09] MEDS: levETIRAcetam in NaCl (iso-os) 500 MG/100 ML PIGGYBACK 400 MG IV (15:33)
[2021-11-09] MEDS: Midazolam HCl/PF 2 MG/2 ML VIAL 4 MG IVPUSH (15:43)
[2021-11-09] MEDS: cefTRIAXone sodium 1 GM in 0.9 % Sodium Chloride 50 ML IV (16:15)
[2021-11-09] MEDS: vancomycin HCL 1,250 MG in 0.9 % Sodium Chloride 250 ML 166.67 MG IV (16:23)
[2021-11-09 16:33] LABS: COVID-19 Test Negative (Negative); IDNOW Serial# 55D5AD1C
--- NOTE | 2021-11-09 16:34 | W.PM.CCCN ---
History of Present Illness Data of Consult Service Date: 11/09/21 Requesting physician: Gabby Loza Primary Care Provider: Mason Lopez MD [facility] Reason for consult: Agitated delirium 61-year-old moderately obese female hypertensive hyperlipidemic and type 2 diabetic end-stage renal disease hemodialysis dependent brought in for altered mental status and apparently for the last 24 hours has been having the same what appears to be delirious behavior where she shouts screams and is seemingly pushing people away but it is a pattern behavior with this cream comes movement of the left upper and left lower extremity with a scream relaxes the extremities relax and there are 5 rhythmic beats of the left upper extremity and a quiet. And then right back after a few seconds this is a partial complex seizure status epilepticus 5 mg of Versed shut it down she immediately started postictal breathing and we loaded with 500 mg of Keppra and the episode subsided at that point skin is warm well perfused palpable peripheral pulses palpable carotid upstrokes late peaking systolic ejection murmur radiating to both carotids and echocardiographically I got at bedside concentric left ventricular hypertrophy with 50-55% ejection fraction at least mild pulmonary hypertension with mild right ventricular prominence but heavily calcified trileaflet aortic valve velocities between 4 and 5 m/sec indicating potentially critical aortic valvular stenosis CT scan of the head did not show anything and a CT scan of the chest showed bilateral nodular infiltrate of varying degrees of attenuation no consolidation and no pleural disease this could represent either metastatic disease or metastatic infection or septic embolization so she is going to need more extensive looking at the brain possibly MRI or CT scan with contrast of the brain and extensive culturing and potentially a search for primary but will likely need a neuro ICU because in if she were to need additional medications she would have at least EEG monitoring which we can provide here noted we have bed in nursing available but this way they could enhanced treatment intubated if need be I think that would be the safest most intelligent approach she is also going to need cardia Cardiology to define the gravity of the aortic stenosis if it is critical we have to assume it is causing the abdominal squeezing and shortness of breath but she may have co associated coronary disease given all of her risk background Review of Systems Review of Systems: The discussion about the squeezing abdomen and shortness of breath etc. all came from her daughter but more specific review of systems cannot be obtained PMFSH Past Medical History Medical History Abnormal nuclear stress test Anemia Aortic stenosis Congestive heart failure End stage renal disease ESRD on dialysis GI bleed History of renal dialysis Hypercholesterolemia Hypertension Hypertensive cardiovascular disease Hypothyroid Insomnia SLOAN (obstructive sleep apnea) Pleural effusion Type 2 diabetes mellitus with hyperglycemia Family History Family History Mother Chronic kidney disease CAD (coronary artery disease) Father No problems noted. Sister Thyroid cancer Brother No problems noted. Daughter No problems noted. Daughter No problems noted. Surgical History Surgical History History of colonoscopy History of esophagogastroduodenoscopy (EGD) History of total hysterectomy 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 Cognitive needs: Yes (walker) Hearing needs: No Vision needs: Yes (Glasses) Meds Allergies Allergy/AdvReac Type Severity Reaction Status Date / Time No Known Allergies Allergy Verified 09/30/21 14:52 Active Medications: Current Medications Vancomycin HCl 1,250 mg/ (Sodium Chloride) 250 mls @ 166.667 mls/hr IV ONCE ONE Stop: 11/09/21 16:59 Last Admin: 11/09/21 16:23 Dose: 166.67 mls/hr Pharmacy Consult (Consult Rx Perform Med Rec) 1 each MISCELLANE ONCE PRN PRN Reason: Consult order Home Medications Medication Instructions Recorded Confirmed Last Taken Type labetalol 300 mg tablet 300 mg PO BID 11/04/20 11/09/21 Unknown History prednisolone acetate 1 % eye 1 drp ophthalmic (eye) TID 11/04/20 11/09/21 Unknown History drops,suspension sevelamer carbonate 800 mg tablet 800 mg PO TID 12/19/20 11/09/21 Unknown History pen needle, diabetic 31 gauge x #50 ea 09/02/21 09/30/21 Unknown History 04/30 (BD Ultra-Fine Mini Pen Needle) atorvastatin 40 mg tablet 40 mg PO BEDTIME 11/09/21 11/09/21 Unknown History calcium carbonate 500 mg calcium 1 tab PO DAILY 11/09/21 11/09/21 Unknown History (1,250 mg) tablet furosemide 40 mg tablet 80 mg PO Q2D 11/09/21 Unknown History latanoprost 0.005 % eye drops 1 drp ophthalmic (eye) QPM 11/09/21 11/09/21 Unknown History losartan 50 mg tablet 50 mg PO DAILY 11/09/21 11/09/21 Unknown History Physical Exam Vital Signs: Vital Signs: Last Vital Signs Pulse 79 11/09/21 14:00 Resp 14 11/09/21 14:00 BP 126/41 L 11/09/21 14:00 Pulse Ox 97 11/09/21 14:00 O2 Del Method 11/09/21 14:00 O2 Flow Rate 2 11/09/21 14:00 BMI result Body Mass Index 30.0 Currently pressure is 130/70 normal sinus rhythm rate under 100 with unchanged EKG with right bundle branch block She had focal movement during the seizure of the her left side including upper and lower extremity and neck is supple no palpable adenopathy pupils are small and they are reactive bilaterally to light and her tone in all 4 extremities equal Lungs without adventitious sounds no accessory muscle use no diaphragmatic effort Abdomen soft with no organomegaly Skin looks intact no acrocyanosis Results Labs CBC & Chem 7: 11/08/21 20:55 11/09/21 06:25 Labs: Short CBC 11/08/21 Range/Units 20:55 WBC 13.1 H (4.8-10.8) X10*3/uL Hgb 10.7 L (12.0-16.0) g/dl Hct 35.6 L (37.0-47.0) % Plt Count 406 H D (160-400) X10*3/uL BMP 11/09/21 06:25 Sodium 150 H Potassium 6.3 H* D Chloride 102 Carbon Dioxide 22 BUN 63 H D Creatinine 8.01 H* Calcium 11.0 H D Cardiac Enzymes 11/09/21 Range/Units 06:25 Total Creatine Kinase 794 H (26-140) U/L Liver Function 11/09/21 Range/Units 06:25 Total Bilirubin 0.5 (0.0-1.0) mg/dL AST 28 D (5-31) U/L ALT 14 (0-31) U/L Alkaline Phosphatase 110 (39-117) U/L Albumin 4.0 (3.5-5.0) g/dL Assessment and Plan (1) Change in mental status: Status: Acute (2) Status epilepticus due to complex partial seizure: Status: Acute (3) Aortic valve stenosis: Status: Acute (4) Hypernatremia: Status: Acute (5) Hyperkalemia: Status: Acute (6) ESRD (end stage renal disease) on dialysis: Status: Acute (7) Diabetes: Status: Acute (8) CAD (coronary artery disease): Status: Acute (9) S/P cardiac catheterization: Status: Acute (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 (11) Abdominal pain: Status: Acute (12) SLOAN (obstructive sleep apnea): Status: Acute (13) CHF exacerbation: Status: Acute (14) Anemia: Status: Acute (15) GERD (gastroesophageal reflux disease): Status: Acute (16) Pneumonitis: Status: Acute Plan Given the status epilepticus and the specific response to Versed and Keppra and of course she is now postictal I think she would belong in a in in an appropriate neuro ICU with EEG monitoring and monitoring of her airway should she require more medication workup for the etiology of the status epilepticus and then of course workup should include Pulmonary for the nodular infiltration of both lungs and Cardiology adjust to investigate the high velocities that are noted across the aortic valve and observation for the possibility that the abdominal complaint with dyspnea is not unstable ischemia
[2021-11-09 16:57] LABS: Creatinine Clr Calc Pharmacy 13.7; Estimated Glomerular Filt Rate 11
[2021-11-09 16:58] LABS: Anion Gap 26 (12-20); Blood Urea Nitrogen 24 mg/dL (9-16); Calcium 9.3 mg/dL (8.4-10.2); Carbon Dioxide 22 mmol/L (22-29); Chloride 98 mmol/L (96-108); Glucose Random 138 mg/dL (60-115); Potassium 5.2 mmol/L (3.3-5.1); Sodium 141 mmol/L (135-145)
--- NOTE | 2021-11-09 17:29 | PC.NURSE ---
CALL OUT [facility] TRANSFER LINE @[id number] CALL OUT TO [facility] @[phone] SPOKE TO ОЛЕГ
[2021-11-09 18:00] VITALS: BP 108/80; PULSE 90; RESP 14; O2SAT 95
[2021-11-09] MEDS: Midazolam HCl/PF 2 MG/2 ML VIAL IVPUSH ×3 (18:11→23:34)
--- NOTE | 2021-11-09 18:54 | PC.NURSE ---
patient is accepted to [facility] BED 2534 Nurse to Nurse [phone] for accepting doctor.
--- NOTE | 2021-11-09 19:45 | PC.NURSE ---
call out to [facility] @1944 spoke to REYNA who informed me there are no trucks available for ALS transfer call out to [facility] @1946 and they also have no trucks available call out to [facility] @1950 and they can not transport patient call out to [facility] @1953 and they will not accommodate transfer because patient does not have [facility] for health insurance
[2021-11-09] MEDS: Midazolam HCl/PF 2 MG/2 ML VIAL 1 MG IVPUSH (20:15)
--- NOTE | 2021-11-09 20:21 | PC.NURSE ---
Addendum entered by Reshma Contreras RN 11/10/21 04:30: Pt began to get agitated again, 2mg Versed IV ordered, administered, per APR. Pt asleep again Addendum entered by Reshma Contreras RN 11/10/21 02:36: 5mg Haldol and 1mg versed administered IV per APR. Addendum entered by Reshma Contreras RN 11/10/21 02:01: previously noted 1mg Versed administered. Addendum entered by Reshma Contreras RN 11/10/21 01:48: Pt attempting to pull out new IV. Dr Humphrey at bedside and ordered verbally 1mg Versed IV. Addendum entered by Reshma Contreras RN 11/10/21 01:42: Dr Humphrey at the bedside to insert an IV into the right foot. Placement was successful and site was wrapped securely. Dr Humphrey verbally ordered 1mg Versed which was administered with provider at the bedside. Addendum entered by Reshma Contreras RN 11/10/21 01:14: Pt staerted to get irritated again about 25 minutes ago. MD ordered 2 mg versed. Versed is now unavailable in ED, must obtain elsewhere. I went to administer IV, pt had pulled her IV out. MD changed order to IM. Dose administered. Addendum entered by Reshma Contreras RN 11/09/21 23:37: Pt began to wake up, grabbing at the mattress and screaming. 2mg versed administered per MD. Pt now resting. Addendum entered by Reshma Contreras RN 11/09/21 22:49: Daughters left the bedside. Pt is still asleep in a left lateral position. Vital signs are good: HR 75, O2 100%, BP 138/76. O2 is on 2LPM via NC Addendum entered by Reshma Contreras RN 11/09/21 21:39: Pt daughter at bedside now, pt still agitated and screaming, with periods of sleeping. Pt given 2mg versed IV and is now resting with occasional groans and whines. Pt is more calm now. O2 is on and saturation has stayed above 95%. Will continue to monitor. Original Note: This RN took over care of the pt at 1900 on 11/09. Pt has been agitated since I came in. Groaning, yelling, trying to get out of bed. Pt was given 0.25 of benadryl which worked for a short time. Pt became more agitated again and an order for 1mg of versed was put in. Pt was found to have a piece of, what appeared to be, part of a pillow in her mouth. Ptis also struggling to keep her oxygen and heart monitor on. Pt is very diaphoretic. Versed was given and monitoring will continue. Pt is currently prone in the bed, not allowing us to roll her onto her back. Pt O2 has been between 90-100% without NC on.
--- NOTE | 2021-11-09 20:41 | PC.NURSE ---
call out to [facility] @2011 with an update or an ETA on [facility] truck [facility] could not give me an update because there are no ALS trucks available call out to [facility] 2014 spoke to Gerald and asked if there are any ambulance services at [place] that can help with transport
[2021-11-09 21:42] VITALS: BP 162/67; PULSE 73; O2SAT 100
[2021-11-10] VITALS (7 sets, daily range): BP systolic 119–205; BP diastolic 34–113; PULSE 66–100; RESP 16–20; TEMP 36.5; O2SAT 94–100
[2021-11-10] MEDS: Haloperidol Lactate 5 MG/ML VIAL IM (02:31)
[2021-11-10] MEDS: Midazolam HCl/PF 2 MG/2 ML VIAL 1 MG IVPUSH (02:31)
[2021-11-10] MEDS: Midazolam HCl/PF 2 MG/2 ML VIAL IVPUSH ×3 (04:30→09:32)
--- NOTE | 2021-11-10 09:32 | PC.NURSE ---
Patient increased confusion and agitation , climbing out of bed . unable to redirect . biting at mattress and oxygen tubing . Obtained order for 2mg versed from Yoli Gaviria for patients safety . patients vitals stable blood pressure 120/53 HR 66 , breathing unlabored and regular at 18 breaths per minute . patient bed at lowest position .
--- NOTE | 2021-11-10 10:41 | PC.NURSE ---
patient changed . repositioned . patient patient obtunded moving side to side in bed r/t metabolic disorder .. awaiting transport via ambulance to [facility] . Belongings list done . One earrings given to ambulance crew and one in patients left ear .
--- NOTE | 2021-11-10 10:42 | PC.NURSE ---
THIS US/WEB OPERATIONS SPECIALIST CALLS [facility] THIS MORNING TO INQUIRE ABOUT ALS TRANSPORT FOR PATIENT TO [facility]. [facility] ALL DECLINED ALS TRANSPORT TODAY. [facility] DECLINES HELICOPTER TRANSPORT D/T WEATHER CONDITIONS. [facility] ALSO DECLINES HELICOPTER D/T WEATHER. HOWEVER, [facility] APPROVES GROUND TEAM TRANSPORT BUT SUBSEQUENTLY CANNOT ACQUIRE AMBULANCE TRANSPORT FOR THEIR GROUND TEAM AND ADVISES TO CALL BACK WHEN WEATHER CHANGES @ APPROXIMATELY 9:30. IN THE MEANWHILE THIS US/WEB OPERATIONS SPECIALIST CONTACTS RADIATION OFFICER AND BUFFING LINE SET UP WORKER TO WORK ON OTHER OPTIONS FOR TRANSPORT. AT 1012, THIS US/WEB OPERATIONS SPECIALIST IS INFORMED BY ADMINISTRATION THAT ALL OTHER PLANS HAVE FALLEN THROUGH. THIS US/WEB OPERATIONS SPECIALIST CALLS [facility] AT 1016. [facility] APPROVES HELICOPTER TRANSPORT TO ARRIVE WITHIN 12 MINUTES. THIS US/WEB OPERATIONS SPECIALIST CONTACTS [facility], AND [facility] TO ASSIST WITH HELICOPTER LANDING IN [place] FIELD,PATIENT TRANSFER, AND [facility] TO [facility].
--- NOTE | 2021-11-10 10:50 | PC.NURSE ---
Bedside report given to Krista Piedra RN and Katelyn Sewell RN . Patient very restless, obtunded and unsafe for transport by airlift . DR. Whitt at bedside .
--- NOTE | 2021-11-10 10:55 | PC.NURSE ---
Attempted contact daughter no answer . continue with plan of care for patients safety .
--- NOTE | 2021-11-10 10:55 | PC.NURSE ---
THIS US/BUN MACHINE OPERATOR ALSO REQUESTS ROCHELLE RN TO CALL JING AT [facility] [phone] TO CONFIRM PATIENT STILL HAS ICU BED AVAILABLE AND TO INFORM THEM OF THE PATIENT'S IMPENDING TRANSFER.
[2021-11-10 10:59] LABS: Glucose, Whole Blood 149 mg/dL (60-115)
--- NOTE | 2021-11-10 11:01 | PC.NURSE ---
[address] by Dr. Whitt . RT at bedside . patient agitated , obtundeded. unable to transport safely . patient on monitor car operator . 1107 150 ketamin , 100 gladys administered by Krista Guerra RN 1109 patient bagging at 100% 3l 1109 patient intubated by mari Watters vitals 97 % 7.5 21 at right lip positive color metric . 1112 100 ketamin given by Krista Guerra RN 1115 [address] Whitt 1118 og placed by Monique Montalvo RN 1118 postive placement verified by xray 1120 Krista guerra started proprafal 10mcg/kg started report given to Mari
[2021-11-10] MEDS: Rocuronium Bromide 50 MG/5 ML VIAL 100 MG IVPUSH (11:07)
--- NOTE | 2021-11-10 11:25 | PC.NURSE ---
Patient transporting out by [facility] . at bedside . Explained reasoning for need to intubation and medicating of patient for safe transportation via airlift . This RN spoke to Daughter in waiting room also was spoken to about plan of care and patient transporting to [facility] . Family aware of plan of care .
--- NOTE | 2021-11-10 11:50 | PC.NURSE ---
this rn found a yellow earring with a white bottom which was given to security ().
--- NOTE | 2021-11-10 12:17 | PC.NURSE ---
Teresa OLIVER at [facility] given report .
== END 2021-11-10 11:25 | disposition short-term general hospital (02) ==
PROVIDERS: Internal Medicine; Student in an Organized Health Care Education/Training Program; Emergency Provider Internal Medicine; PCP Internal Medicine
DX: G93.41 Metabolic encephalopathy (principal); R44.3 Hallucinations, unspecified; R45.1 Restlessness and agitation; R25.3 Fasciculation; T42.8X5A Adverse effect of antiparkinsonism drugs and other central muscle-tone depressants, initial encounter; Y92.039 Unspecified place in apartment as the place of occurrence of the external cause; Z20.822 Contact with and (suspected) exposure to COVID-19; E11.22 Type 2 diabetes mellitus with diabetic chronic kidney disease; I13.2 Hypertensive heart and chronic kidney disease with heart failure and with stage 5 chronic kidney disease, or end stage renal disease; I50.9 Heart failure, unspecified; N18.6 End stage renal disease; Z99.2 Dependence on renal dialysis; E78.5 Hyperlipidemia, unspecified; Z79.4 Long term (current) use of insulin; Z79.899 Other long term (current) drug therapy; Z79.02 Long term (current) use of antithrombotics/antiplatelets
CPT/HCPCS: 36415; 70450; 71045; 71250; 80048; 80053; 82140; 82550; 82803; 82947; 83605; 83880; 84484; 85025; 85610; 87040; 87635; 90999; 93005; 96365; 96366; 96367; 96372; 96375; 96376; 99285; J0610; J0696; J1200; J1953; J2250; J3370; J3486; Q0163

== ENCOUNTER → 2021-12-17 11:18 | Outpatient (BNVA) | payer OTHER, SELFPAY | PROVIDERS: PCP Internal Medicine; Referring Provider Internal Medicine; Visit Provider Internal Medicine Cardiovascular Disease | DX: I63.9 Cerebral infarction, unspecified (principal); I35.0 Nonrheumatic aortic (valve) stenosis; I10 Essential (primary) hypertension | CPT/HCPCS: 93005; 99212 ==

== ENCOUNTER → 2021-12-23 12:23 | Outpatient (BNVA) | payer OTHER, SELFPAY | PROVIDERS: PCP Internal Medicine; Visit Provider Registered Nurse Diabetes Educator | DX: G47.33 Obstructive sleep apnea (adult) (pediatric) (principal); J44.9 Chronic obstructive pulmonary disease, unspecified; J90 Pleural effusion, not elsewhere classified; I50.9 Heart failure, unspecified; I35.0 Nonrheumatic aortic (valve) stenosis; E11.65 Type 2 diabetes mellitus with hyperglycemia; Z79.4 Long term (current) use of insulin | CPT/HCPCS: 99211; 99212 ==

== ENCOUNTER → 2021-12-25 07:37 | Outpatient (REF) | payer OTHER, SELFPAY ==
--- NOTE | 2021-12-25 07:40 | CA_ITS ---
Transthoracic Echocardiogram Patient (Last, First, Middle): Joseph Olmstead, Gender: Female Date of : 1960 Age: 61 Procedure Date: 12/25/2021 Procedure Type: Transthoracic Echocardiogram Location: OP Height: 162. cm Weight: 79. kg BSA: 1.84 m2 Heart Rate: 74 bpm BP: 138 / 60 mmHg Non Profit Job Titles: SB Referring MD: Ernesto Amaral MD Image Scientist: Ernesto Amaral MD Symptoms: I35.0 - Nonrheumatic aortic (valve) stenosis Study Quality: Adequate ECG Rhythm: Sinus with extra beats Conclusions: - Severe aortic valve stenosis. - Severe mitral annular calcification. Findings Left Ventricle Normal left ventricular size and systolic function. There is moderately increased left ventricular wall thickness. The visually estimated ejection fraction is between 65-70%. There is no evidence of regional wall motion abnormalities. There is severe septal asymmetric hypertrophy. Right Ventricle Normal right ventricular cavity size and systolic function. Atria Mild biatrial enlargement. Aortic Valve There is severe calcification of the aortic valve. There is moderate thickening of the aortic valve. There is severe aortic valve stenosis. The peak aortic velocity is 4.80 m/s with a calculated peak gradient of 95 mmHg. The mean gradient is 53 mmHg. The aortic valve area is 0.90 cm2. There is mild aortic valve regurgitation. Mitral Valve There is severe mitral annular calcification. Flow acceleration through the mitral valve noticed. This is a limited study for reassessment. Pericardium/Pleural There is no evidence of pericardial effusion. Prior Study Comparison Changes noted compared to prior study dated: 10/23/2021. Severe is present. Previous study had overestimation of the LVOT area. Measurements 2D Linear Measurements IVSd: 1.46 0.6-0.9/0.6-1.0 cm LVIDd: 5.37 3.9-5.3/4.2-5.9 cm LVIDd Index: 2.92 2.4-3.2/2.2-3.1 cm/m2 LVIDs: 3.10 2.0-3.6 cm LVPWd: 1.22 0.7-1.1 cm LV Mass: 381.48 67-162/88-224 g LV Mass Index: 207.33 43-95/49-115 g/m2 LVOT Diam: 2.10 3.0+(-)1.3 cm 2D Systolic Function EF 4C: 60.50 >55% EF 2C: 60.60 >55% EF BiP: 59.80 >55% Aortic Valve AoV Pk Elías: 4.80 AoV Mn Elías: 3.43 AoV VTI: 1.15 AoV Pk Grad: 95.00 Aov Mn Grad: 53.00 SHAR Cont.VTI: 0.90 AI Pk Elías: 4.59 AI [place]: 2.93 LVOT LVOT Pk Elías: 1.22 LVOT Mn Elías: 0.88 LVOT VTI: 0.30 LVOT Pk Grad: 6.00 LVOT Mn Grad: 3.00 LVOT Diam: 2.10 LVOT Area: 3.46 Updated in Other Vendor System with Status of Final Ernesto Amaral MD electronically signed on 12/26/2021 12:47:09 PM with status of Final
== END ==
LOC: HO.CARD 07:37
PROVIDERS: PCP Internal Medicine; Visit Provider Internal Medicine Cardiovascular Disease
DX: I35.0 Nonrheumatic aortic (valve) stenosis (principal)
CPT/HCPCS: 93308

== ENCOUNTER → 2022-01-06 08:53 | Outpatient (BNVA) | payer OTHER, SELFPAY | PROVIDERS: PCP Internal Medicine; Visit Provider Internal Medicine Endocrinology, Diabetes & Metabolism | DX: E11.65 Type 2 diabetes mellitus with hyperglycemia (principal); Z79.4 Long term (current) use of insulin | CPT/HCPCS: 82947; 83036; 99212 ==

== ENCOUNTER 2022-01-22 12:47 | Outpatient (RCR) | payer OTHER, SELFPAY ==
--- NOTE | ~2022-01-22 | XR_ITS ---
EXAMINATION: XR FOOT, RIGHT CLINICAL INFORMATION: Right great toe wound COMPARISON: None TECHNIQUE: AP, lateral, and oblique views of the right foot. FINDINGS: There is a soft tissue defect in the medial distal great toe suggestive of a wound or ulcer. There is diffuse soft tissue swelling. No x-ray evidence of osteomyelitis. Mild arthritis at the first MTP joint and hallux valgus deformity. No fracture, or dislocation. Soft tissue arterial calcification. XR/XR foot RT 2V IMPRESSION: Soft tissue defect in the medial distal great toe suggestive of wound or ulcer. Diffuse soft tissue swelling. No x-ray evidence of osteomyelitis.
[2022-01-22 15:40] LABS: MANUAL DIFF FLAG NO
[2022-01-22 16:22] LABS: Basophils Absolute Auto 0.1 X10*3/uL (0.0-0.2); Eosinophils Absolute Auto 0.3 X10*3/uL (0.0-0.4); Eosinophils Percent Auto 2.9 % (0-4); Hematocrit 27.5 % (37.0-47.0); Hemoglobin 8.3 g/dl (12.0-16.0); Imm Gran Abs Auto 0.04 X10*3/uL (0.00-0.03); Imm Gran Pct Auto 0.4 % (0.0-0.4); Lymphocytes Absolute Auto 1.9 X10*3/uL (1.2-4.9); Lymphocytes Percent Auto 20.8 % (20-40); Mean Corpuscular HGB Conc 30.2 g/dl (31.0-35.0); Mean Corpuscular Hemoglobin 28.7 pg (27.0-33.0); Mean Corpuscular Volume 95.2 fL (80.0-98.0); Mean Platelet Volume 11.1 fL (9.4-12.3); Monocytes Absolute Auto 0.7 X10*3/uL (0.1-1.2); Monocytes Percent Auto 7.8 % (2-11); Neutrophils Percent Auto 67.1 % (45-73); Platelet Count 372 X10*3/uL (160-400); Red Blood Count 2.89 X10*6/uL (4.20-5.50); Red Cell Distribution Width 16.5 % (11.0-16.0); White Blood Count 8.9 X10*3/uL (4.8-10.8)
[2022-01-22 16:30] LABS: Estimated Average Glucose 140 mg/dL; Hemoglobin A1C 104.0024 umol/L; Hemoglobin A1c % 6.5 %
[2022-01-22 17:00] LABS: Erythrocyte Sedimentation Rate 82 MM/HR (0-20)
[2022-01-22 17:35] LABS: Estimated Glomerular Filt Rate 8
[2022-01-22 18:39] LABS: Anion Gap 18 (12-20); Blood Urea Nitrogen 24 mg/dL (9-16); C Reactive Protein 3.21 mg/dL (< or = 0.50); Calcium 10.5 mg/dL (8.4-10.2); Carbon Dioxide 29 mmol/L (22-29); Chloride 102 mmol/L (96-108); Glucose Random 134 mg/dL (60-115); Potassium 4.6 mmol/L (3.3-5.1); Sodium 144 mmol/L (135-145)
== END 2022-10-06 16:00 | disposition home or self-care (01) ==
LOC: HO.WCC 12:47
PROVIDERS: PCP Internal Medicine; Visit Provider Surgery
DX: E11.622 Type 2 diabetes mellitus with other skin ulcer (principal); L97.819 Non-pressure chronic ulcer of other part of right lower leg with unspecified severity; E11.40 Type 2 diabetes mellitus with diabetic neuropathy, unspecified; E11.29 Type 2 diabetes mellitus with other diabetic kidney complication; E11.52 Type 2 diabetes mellitus with diabetic peripheral angiopathy with gangrene; I96 Gangrene, not elsewhere classified; E11.22 Type 2 diabetes mellitus with diabetic chronic kidney disease; I13.2 Hypertensive heart and chronic kidney disease with heart failure and with stage 5 chronic kidney disease, or end stage renal disease; N18.6 End stage renal disease; I50.9 Heart failure, unspecified; E83.59 Other disorders of calcium metabolism; I35.8 Other nonrheumatic aortic valve disorders; Z99.2 Dependence on renal dialysis; Z86.73 Personal history of transient ischemic attack (TIA), and cerebral infarction without residual deficits; Z79.4 Long term (current) use of insulin; Z79.82 Long term (current) use of aspirin; Z79.01 Long term (current) use of anticoagulants; Z79.2 Long term (current) use of antibiotics; Z79.899 Other long term (current) drug therapy
CPT/HCPCS: 11042; 36415; 73620; 80048; 83036; 84134; 85025; 85652; 86140; 97597; 99212; 99213

== ENCOUNTER 2022-02-04 10:59 | Inpatient (IN) | payer OTHER, SELFPAY ==
--- NOTE | ~2022-02-04 | XR_ITS ---
EXAMINATION: XR CHEST CLINICAL INFORMATION: SOB COMPARISON: Chest 11/10/2021 TECHNIQUE: Frontal view of the chest was obtained. FINDINGS: The lungs are somewhat expanded with bibasilar haziness from effusion and underlying atelectasis/infiltrate. The heart size enlarged with increased pulmonary vascularity suggestive of mild CHF. No gross bony abnormality. XR/XR chest 1V IMPRESSION: 1. Cardiomegaly with mild CHF. 2. Bilateral pleural effusions with underlying atelectasis/infiltrate.
--- NOTE | 2022-02-04 11:09 | ED.SOB ---
HPI - SOB/Dyspnea General Chief Complaint: Dyspnea Stated Complaint: SOB Time Seen by Provider: 02/04/22 11:09 Source: patient, EMS, old records reviewed and polygraph operator Mode of arrival: EMS Limitations: language barrier History of Present Illness HPI Narrative: 62-year-old female with history of COPD, CVA, moderate aortic stenosis, seizures, CAD, SLOAN, GERD, pneumonitis, pleural effusion, HFpEF, ESRD on HD, DM2, hypothyroidism, PUD, osteoarthritis who presents to the ER from home for evaluation of shortness of breath that started yesterday. She states that her breathing difficulties came on slowly and slowly worsened throughout the night and morning today. She states it is worse with any exertion and when lying flat. She has a chronic cough for the last month it has not been productive of any phlegm. She denies any fevers, chest pain. She states she last got her dialysis on Wednesday and completed the entire session. She is due for dialysis today. Per EMS patient was found in respiratory distress, tripoding and tachypneic. She was hypoxic to 86% on room air. She was very anxious. She was placed on 4L NC and brought to the ER. En route her WOB and anxiety improved. Of note, patient is due for HD today at 11am. MD elicited complaint: shortness of breath Pertinent past history: COPD, congestive heart failure and other (ESRD) Onset (ago): day(s) (1) Timing: progressively worsening Severity: severe Exacerbating factors: lying flat and exertion Relieving factors: oxygen, rest and upright position Known history of: COPD and congestive heart failure Associated symptoms: cough and other (Anxiety) Treatment prior to arrival: oxygen Related Data Home oxygen amount: none Home Medications Medication Instructions Recorded Confirmed labetalol 300 mg tablet 300 mg PO BID 11/04/20 01/06/22 prednisolone acetate 1 % eye 1 drp ophthalmic (eye) TID 11/04/20 01/06/22 drops,suspension sevelamer carbonate 800 mg tablet 800 mg PO TID 12/19/20 01/06/22 latanoprost 0.005 % eye drops 1 drp ophthalmic (eye) BEDTIME 11/09/21 01/06/22 gabapentin 100 mg capsule 100 mg PO DAILY 12/11/21 01/06/22 furosemide 40 mg tablet 40 mg PO DAILY PRN Edema 12/17/21 01/06/22 atorvastatin 20 mg tablet 1 tab PO DAILY 02/04/22 calcium carbonate 500 mg calcium 1 tab PO DAILY 02/04/22 (1,250 mg) tablet insulin glargine 100 unit/mL 8 unit subcut DAILY 02/04/22 subcutaneous solution (Lantus U-100 Insulin) levothyroxine 75 mcg tablet 75 mcg PO DAILY@0600 02/04/22 lidocaine-prilocaine 2.5 %-2.5 % 1 appl topical DIRECTED PRN to 02/04/22 topical cream access port before dialysis losartan 50 mg tablet 1 tab PO DAILY 02/04/22 pantoprazole 40 mg tablet,delayed 1 tab PO DAILY 02/04/22 release Previous Rx's Medication Instructions Recorded blood sugar diagnostic (FreeStyle #300 ea 12/10/20 Lite Strips) albuterol sulfate 90 mcg/actuation 2 inh inhalation Q6H PRN shortness 12/12/20 aerosol inhaler of breath or wheezing 30 days #18 grams AUTO PAP PS6-20 CM h20 humidified #1 ea 01/03/21 AIR amlodipine 5 mg tablet 5 mg PO DAILY 30 days #90 tabs 06/18/21 pen needle, diabetic 31 gauge x #100 ea 09/23/21 5/16 (Comfort EZ Pen [place]) insulin aspart U-100 100 unit/mL See Rx Instructions subcut TID #15 09/24/21 (3 mL) subcutaneous pen (Novolog mL Flexpen U-100 Insulin aspart) flash glucose sensor (FreeStyle #6 kits 09/30/21 Rusty 14 Day Sensor kit) pen needle, diabetic 31 gauge x #100 ea 12/10/21 3/16 (BD Ultra-Fine Mini Pen Needle) budesonide 0.25 mg/2 mL suspension 0.25 mg (2 mL) inhalation BID 30 12/23/21 for nebulization days #120 mL levalbuterol HCl 1.25 mg/3 mL 1.25 mg (3 mL) inhalation BID #180 12/30/21 solution for nebulization mL hydralazine 100 mg tablet 100 mg PO BID 90 days #180 tabs 01/02/22 Hospital bed #1 ea 01/23/22 Shower Chair #1 ea 01/23/22 Allergies Allergy/AdvReac Type Severity Reaction Status Date / Time baclofen AdvReac Severe Confusion Verified 02/04/22 11:26 Review of Systems Review of Systems: Constitutional: No Fever, No Chills ENT/Mouth: No sore throat, No Rhinorrhea, No Swallowing Difficulty Eyes: No Eye Pain, No Swelling, No Redness Cardiovascular: No Chest Pain, + SOB, + Orthopnea, No Edema Respiratory: + Cough, No Sputum, + Wheezing, +dyspnea Musculoskeletal: No joint pain, No Myalgias Skin: No Skin Lesions, No rash Neuro: No Weakness, No Numbness, No Dizziness, No Headache Psych: + Anxiety/Panic, No Depression Heme/Lymph: No Bruising, No Lymphadenopathy Endocrine: No Polyuria, No Polydipsia [facility] Past Medical History Medical History (Updated 02/04/22 @ 13:05 by CARIN Dubon) Abnormal nuclear stress test Anemia Aortic stenosis Congestive heart failure COPD (chronic obstructive pulmonary disease) CVA (cerebral vascular accident) End stage renal disease ESRD on dialysis GI bleed History of renal dialysis Hypercholesterolemia Hypertension Hypertensive cardiovascular disease Hypothyroid Insomnia SLOAN (obstructive sleep apnea) Pleural effusion Type 2 diabetes mellitus with hyperglycemia Surgical History History of colonoscopy History of esophagogastroduodenoscopy (EGD) History of total hysterectomy Family History Family History Mother Chronic kidney disease CAD (coronary artery disease) Father No problems noted. Sister Thyroid cancer Brother No problems noted. Daughter No problems noted. Daughter No problems noted. 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 Oriented X3. Mild respiratory distress with RR low 20s. Eyes: Pupils equal, round and reactive to light. ENT: Pharynx normal. Neck: Normal inspection. Neck supple. CVS: Normal heart rate and rhythm. systolic murmur present throughout Respiratory: Mild respiratory distress. Breath sounds with faint expiratory wheezes throughout, bibasilar rales. Able to speaking complete sentences. Abdomen: Soft and nontender. +BS x4 Skin: Skin warm and dry. Normal skin color. Normal skin turgor. No rashes. Extremities: No lower extremity edema. Neuro: Oriented X 3. No motor deficit. No sensory deficit. Course Course Course Narrative: 62-year-old female with multiple medical comorbidities presenting with shortness of breath since yesterday. Dialysis compliant, due today. EMS reports he was hypoxic to 86% and tripoding, very anxious. She was placed on supplemental oxygen with improvement in her work of breathing. She arrives to the ER saturating 96% on 4 L nasal cannula. She has wheezing and rales on exam. Concern for volume overload verses some COPD exacerbation. She will need dialysis today. Will give her DuoNeb now. Will check chest x-ray and lab workup. Anticipate admission. Reevaluation(s) Reevaluation #1: Chest x-ray with bilateral pleural effusions with associated atelectasis versus infiltrate. She is afebrile with no leukocytosis. Doubt pneumonia. She has a nonproductive, chronic cough. Called for critical lab, potassium is 6.0. No EKG significant changes. Nephrology is consulted, awaiting return call. She needs dialysis today. Reevaluation #2: Dr. Oren morton texted. Dialysis has been ordered. Will admit the patient for further care. Consultations Consultation #1: Nephrology Dr. Lott Medications Administered Discontinued Medications Generic Name Dose Route Start Last Admin Trade Name Freq PRN Reason Stop Dose Admin Albuterol/Ipratropium 3 ml 02/04/22 11:16 02/04/22 11:54 Albuterol/Iprat 2.5/0.5mg 3 Ml Ampul.Neb INHALE 02/04/22 11:17 3 ml ONCE ONE Administration Medical Decision Making Consult Healthcare Provider Management of the patient was discussed with: Research Assistant Lab Data MDM Lab Attestation statement: I reviewed the patient's lab results. Result Diagrams: 02/04/22 11:40 02/04/22 11:40 Labs: Lab Results 02/04/22 02/04/22 02/04/22 Range/Units 11:32 11:39 11:40 WBC 8.4 (4.8-10.8) X10*3/uL RBC 2.92 L (4.20-5.50) X10*6/uL Hgb 8.3 L (12.0-16.0) g/dl Hct 28.4 L (37.0-47.0) % MCV 97.3 (80.0-98.0) fL MCH 28.4 (27.0-33.0) pg MCHC 29.2 L (31.0-35.0) g/dl RDW 16.1 H (11.0-16.0) % Plt Count 356 (160-400) X10*3/uL MPV 10.5 (9.4-12.3) fL Immature Gran % (Auto) 0.5 H (0.0-0.4) % Neut % (Auto) 76.7 H (45-73) % Lymph % (Auto) 13.2 L (20-40) % [place] % (Auto) 6.6 (2-11) % Eos % (Auto) 2.1 (0-4) % Baso % (Auto) 0.9 (0-2) % Lymph # (Auto) 1.1 L (1.2-4.9) X10*3/uL [place] # (Auto) 0.6 (0.1-1.2) X10*3/uL Eos # (Auto) 0.2 (0.0-0.4) X10*3/uL Baso # (Auto) 0.1 (0.0-0.2) X10*3/uL Abs Immat Gran (auto) 0.04 H (0.00-0.03) X10*3/uL Absolute Neuts (auto) 6.5 (2.0-8.3) x10*3/uL Absolute Nucleated RBC 0.000 (0.0-0.012) X10*3/uL Nucleated RBC % (auto) 0.0 (0.0-0.2) /100WBC VBG pH (7.32-7.43) VBG pCO2 mmHg VBG pO2 mmHg VBG HCO3 (22-26) mmol/L VBG O2 Saturation % VBG Base Excess mmol/L Sodium (135-145) mmol/L Potassium (3.3-5.1) mmol/L Chloride (96-108) mmol/L Carbon Dioxide (22-29) mmol/L Anion Gap (12-20) BUN (9-16) mg/dL Creatinine (0.5-1.4) mg/dL Estim Creat Clear Calc Estimated GFR Random Glucose (60-115) mg/dL Lactic Acid 2.5 H* (0.5-2.0) mmol/L Calcium (8.4-10.2) mg/dL Magnesium (1.6-2.6) mg/dL Total Bilirubin (0.0-1.0) mg/dL Direct Bilirubin (0.0-0.5) mg/dL AST (5-31) U/L ALT (0-31) U/L Alkaline Phosphatase (39-117) U/L Troponin I High Sens (<3.5-17.0) ng/L B-Natriuretic Peptide (<100) pg/mL Total Protein (6.5-8.0) g/dL Albumin (3.5-5.0) g/dL Influenza Type A (PCR) NEGATIVE (Negative) Influenza Type B (PCR) NEGATIVE (Negative) RSV RNA Qual (PCR) NEGATIVE (Negative) SARS-CoV-2 RNA (RT-PCR) NEGATIVE (Negative) 02/04/22 02/04/22 02/04/22 Range/Units 11:40 11:40 11:40 WBC (4.8-10.8) X10*3/uL RBC (4.20-5.50) X10*6/uL Hgb (12.0-16.0) g/dl Hct (37.0-47.0) % MCV (80.0-98.0) fL MCH (27.0-33.0) pg MCHC (31.0-35.0) g/dl RDW (11.0-16.0) % Plt Count (160-400) X10*3/uL MPV (9.4-12.3) fL Immature Gran % (Auto) (0.0-0.4) % Neut % (Auto) (45-73) % Lymph % (Auto) (20-40) % [place] % (Auto) (2-11) % Eos % (Auto) (0-4) % Baso % (Auto) (0-2) % Lymph # (Auto) (1.2-4.9) X10*3/uL [place] # (Auto) (0.1-1.2) X10*3/uL Eos # (Auto) (0.0-0.4) X10*3/uL Baso # (Auto) (0.0-0.2) X10*3/uL Abs Immat Gran (auto) (0.00-0.03) X10*3/uL Absolute Neuts (auto) (2.0-8.3) x10*3/uL Absolute Nucleated RBC (0.0-0.012) X10*3/uL Nucleated RBC % (auto) (0.0-0.2) /100WBC VBG pH (7.32-7.43) VBG pCO2 mmHg VBG pO2 mmHg VBG HCO3 (22-26) mmol/L VBG O2 Saturation % VBG Base Excess mmol/L Sodium 144 (135-145) mmol/L Potassium 6.0 H* D (3.3-5.1) mmol/L Chloride 102 (96-108) mmol/L Carbon Dioxide 27 (22-29) mmol/L Anion Gap 21 H (12-20) BUN 41 H (9-16) mg/dL Creatinine 7.21 H* (0.5-1.4) mg/dL Estim Creat Clear Calc 7.6 Estimated GFR 6 Random Glucose 256 H (60-115) mg/dL Lactic Acid (0.5-2.0) mmol/L Calcium 10.4 H (8.4-10.2) mg/dL Magnesium 2.3 (1.6-2.6) mg/dL Total Bilirubin 0.6 (0.0-1.0) mg/dL Direct Bilirubin 0.2 (0.0-0.5) mg/dL AST 13 (5-31) U/L ALT 10 (0-31) U/L Alkaline Phosphatase 113 (39-117) U/L Troponin I High Sens < 3.5 (<3.5-17.0) ng/L B-Natriuretic Peptide 3610 H (<100) pg/mL Total Protein 6.7 (6.5-8.0) g/dL Albumin 3.8 (3.5-5.0) g/dL Influenza Type A (PCR) (Negative) Influenza Type B (PCR) (Negative) RSV RNA Qual (PCR) (Negative) SARS-CoV-2 RNA (RT-PCR) (Negative) 02/04/22 Range/Units 11:48 WBC (4.8-10.8) X10*3/uL RBC (4.20-5.50) X10*6/uL Hgb (12.0-16.0) g/dl Hct (37.0-47.0) % MCV (80.0-98.0) fL MCH (27.0-33.0) pg MCHC (31.0-35.0) g/dl RDW (11.0-16.0) % Plt Count (160-400) X10*3/uL MPV (9.4-12.3) fL Immature Gran % (Auto) (0.0-0.4) % Neut % (Auto) (45-73) % Lymph % (Auto) (20-40) % [place] % (Auto) (2-11) % Eos % (Auto) (0-4) % Baso % (Auto) (0-2) % Lymph # (Auto) (1.2-4.9) X10*3/uL [place] # (Auto) (0.1-1.2) X10*3/uL Eos # (Auto) (0.0-0.4) X10*3/uL Baso # (Auto) (0.0-0.2) X10*3/uL Abs Immat Gran (auto) (0.00-0.03) X10*3/uL Absolute Neuts (auto) (2.0-8.3) x10*3/uL Absolute Nucleated RBC (0.0-0.012) X10*3/uL Nucleated RBC % (auto) (0.0-0.2) /100WBC VBG pH 7.34 (7.32-7.43) VBG pCO2 48 mmHg VBG pO2 51 mmHg VBG HCO3 26 (22-26) mmol/L VBG O2 Saturation 75.0 % VBG Base Excess 0.9 mmol/L Sodium (135-145) mmol/L Potassium (3.3-5.1) mmol/L Chloride (96-108) mmol/L Carbon Dioxide (22-29) mmol/L Anion Gap (12-20) BUN (9-16) mg/dL Creatinine (0.5-1.4) mg/dL Estim Creat Clear Calc Estimated GFR Random Glucose (60-115) mg/dL Lactic Acid (0.5-2.0) mmol/L Calcium (8.4-10.2) mg/dL Magnesium (1.6-2.6) mg/dL Total Bilirubin (0.0-1.0) mg/dL Direct Bilirubin (0.0-0.5) mg/dL AST (5-31) U/L ALT (0-31) U/L Alkaline Phosphatase (39-117) U/L Troponin I High Sens (<3.5-17.0) ng/L B-Natriuretic Peptide (<100) pg/mL Total Protein (6.5-8.0) g/dL Albumin (3.5-5.0) g/dL Influenza Type A (PCR) (Negative) Influenza Type B (PCR) (Negative) RSV RNA Qual (PCR) (Negative) SARS-CoV-2 RNA (RT-PCR) (Negative) Independent Interpretation I performed an independent interpretation of an: EKG Interpretation: Normal sinus rhythm, right bundle-branch block, ventricular rate 77 beats per minute, old T-wave inversions in V1 noted no major changes from prior. Radiology Impression Discussion of test interpretation with radiology: I have reviewed the radiologist's reading. Radiologist Impression: Bilateral pleural effusions. Prescription Management I considered prescription management with: Antibiotic Holding off, not septic, doubt pneumonia Critical Care Time Critical Care Time Critical Care Time: Yes Total Critical Care Time: 45 Attestation: I have personally provided critical care time exclusive of time spent on separately billable procedures. Time includes review of lab data, radiology results, discussion with consultants, and monitoring for potential decompensation. Intervention performed as documented. Discharge Plan Discharge Clinical Impression: Acute respiratory failure with hypoxia, Bilateral pleural effusion, Acute hyperkalemia Patient Disposition: Admitted As Inpatient
[2022-02-04 11:14] VITALS: BP 153/76; PULSE 90; O2SAT 99
--- NOTE | 2022-02-04 11:18 | ECG_ITS ---
Test Reason : weak Blood Pressure : / mmHG Vent. Rate : 077 BPM Atrial Rate : 077 BPM P-R Int : 168 ms QRS Dur : 144 ms QT Int : 442 ms P-R-T Axes : 058 078 029 degrees QTc Int : 500 ms Normal sinus rhythm Right bundle branch block Abnormal ECG When compared with ECG of 08-NOV-2021 20:16, No significant changes seen Referred By: Courtney Marie Electronically Signed By:Ernesto Amaral
[2022-02-04 11:26] VITALS: BP 143/65; PULSE 75; RESP 21; TEMP 36.9; O2SAT 96; BMI 31.4
--- NOTE | 2022-02-04 11:34 | PM.CNNEP ---
History of Present Illness Reason for Consult Consult date: 02/04/22 Reason for consult: QUEENIE/CKD Chief Complaint Chief complaint: ESRD, CHF History of Present Illness Narrative: The patient is a 61-year-old female with PMH DM, ESRD on HD for 5 years, HTN, HLD, cerebral infarcts, poor mobility (walker / wheelchair), who presented with chronic shortness of breath and was found to have severe aortic stenosis. Echo showed severe ; tricuspid with evidence of significant calcification with a mean gradient of 53 and a valve area of 0.9 cm? by continuity equation. She has moderate MR. and MS (gradient 8-10). LV function was normal with EF in the range of 60%. The patient underwent cardiac catheterization that revealed only mild disease without significant CAD now admitted with SOB [place] [facility] [place] this last week MWF [place] [facility] Past Medical History Medical History (Updated 02/04/22 @ 17:46 by Salome Blanco NP) Anemia Aortic stenosis Congestive heart failure COPD (chronic obstructive pulmonary disease) CVA (cerebral vascular accident) ESRD on dialysis GI bleed Hypercholesterolemia Hypertension Hypertensive cardiovascular disease Hypothyroid Insomnia SLOAN (obstructive sleep apnea) Type 2 diabetes mellitus with hyperglycemia Family History Family History Mother Chronic kidney disease CAD (coronary artery disease) Father No problems noted. Sister Thyroid cancer Brother No problems noted. Daughter No problems noted. Daughter No problems noted. Surgical History Surgical History History of colonoscopy History of esophagogastroduodenoscopy (EGD) History of total hysterectomy 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 Cognitive needs: Yes (walker) Hearing needs: No Vision needs: Yes (Glasses) Meds Allergies Allergy/AdvReac Type Severity Reaction Status Date / Time baclofen AdvReac Severe Confusion Verified 02/04/22 11:26 Active Medications: Current Medications Pharmacy Consult (Consult Rx Perform Med Rec) 1 each MISCELLANE ONCE PRN PRN Reason: Consult order Home Medications Medication Instructions Recorded Confirmed Last Taken Type labetalol 300 mg tablet 300 mg PO BID 11/04/20 02/04/22 Unknown History sevelamer carbonate 800 mg tablet 800 mg PO TID 12/19/20 02/04/22 Unknown History gabapentin 100 mg capsule 100 mg PO DAILY 12/11/21 02/04/22 Unknown History insulin glargine 100 unit/mL 8 unit subcut DAILY 02/04/22 02/04/22 Unknown History subcutaneous solution (Lantus U-100 Insulin) levothyroxine 75 mcg tablet 75 mcg PO DAILY@0600 02/04/22 02/04/22 Unknown History lisinopril 5 mg tablet 1 tab PO DAILY 02/04/22 02/04/22 Unknown History Physical Exam Vital Signs: Last Vital Signs Temp 98.4 F 02/04/22 11:26 Pulse 75 02/04/22 11:26 Resp 21 H 02/04/22 11:26 BP 143/65 H 02/04/22 11:26 Pulse Ox 96 02/04/22 11:26 O2 Del Method 02/04/22 11:26 Oxygen Flow Rate 2 02/04/22 11:26 BMI result Body Mass Index 31.4 Results Lab Results Result Diagrams: 02/05/22 04:25 02/05/22 04:25 Assessment and Plan (1) COPD (chronic obstructive pulmonary disease): Status: Acute (2) CVA (cerebral vascular accident): Status: Acute (3) ESRD on dialysis: Status: Acute seen on dialysis yesterday well tolerated next treatment in am (4) CHF (congestive heart failure): Status: Acute (5) Type 2 diabetes mellitus with hyperglycemia: Qualifiers: Diabetes mellitus prison insulin use: with manager terminal use Qualified Code(s): E11.65 - Type 2 diabetes mellitus with hyperglycemia; Z79.4 - care home (current) use of insulin Status: Acute Plan dialysis ordered for today Time Spent With Patient Time: Total time managing care of this patient today ____ minutes. Procedures Date of Service Date of Service: 02/05/22
[2022-02-04 11:50] LABS: MANUAL DIFF FLAG NO
[2022-02-04 11:51] LABS: Venous Blood Gas Refer to POC result
--- NOTE | 2022-02-04 11:52 | PM.CNNEP ---
History of Present Illness Reason for Consult Consult date: 02/04/22 Chief Complaint Chief complaint: SOB History of Present Illness Narrative: The patient is a 61-year-old female with PMH DM, ESRD on HD for 5 years, HTN, HLD, cerebral infarcts, poor mobility (walker / wheelchair), who presented with chronic shortness of breath and was found to have severe aortic stenosis. Echo showed severe ; tricuspid with evidence of significant calcification with a mean gradient of 53 and a valve area of 0.9 cm? by continuity equation. She has moderate MR. and MS (gradient 8-10). LV function was normal with EF in the range of 60%. The patient underwent cardiac catheterization that revealed only mild disease without significant CAD now admitted with SOB seen by card surg [facility] [place] this last week due for dialysis today [facility] Past Medical History Medical History (Updated 02/04/22 @ 11:46 by CARIN Dubon) Abnormal nuclear stress test Anemia Aortic stenosis Congestive heart failure COPD (chronic obstructive pulmonary disease) CVA (cerebral vascular accident) End stage renal disease ESRD on dialysis GI bleed History of renal dialysis Hypercholesterolemia Hypertension Hypertensive cardiovascular disease Hypothyroid Insomnia SLOAN (obstructive sleep apnea) Pleural effusion Type 2 diabetes mellitus with hyperglycemia Family History Family History Mother Chronic kidney disease CAD (coronary artery disease) Father No problems noted. Sister Thyroid cancer Brother No problems noted. Daughter No problems noted. Daughter No problems noted. 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 Cognitive needs: Yes (walker) Hearing needs: No Vision needs: Yes (Glasses) Meds Allergies Allergy/AdvReac Type Severity Reaction Status Date / Time baclofen AdvReac Severe Confusion Verified 02/04/22 11:26 Active Medications: Current Medications Pharmacy Consult (Consult Rx Perform Med Rec) 1 each MISCELLANE ONCE PRN PRN Reason: Consult order Home Medications Medication Instructions Recorded Confirmed Last Taken Type labetalol 300 mg tablet 300 mg PO BID 11/04/20 01/06/22 Unknown History prednisolone acetate 1 % eye 1 drp ophthalmic (eye) TID 11/04/20 01/06/22 Unknown History drops,suspension sevelamer carbonate 800 mg tablet 800 mg PO TID 12/19/20 01/06/22 Unknown History latanoprost 0.005 % eye drops 1 drp ophthalmic (eye) BEDTIME 11/09/21 01/06/22 Unknown History gabapentin 100 mg capsule 100 mg PO DAILY 12/11/21 01/06/22 Unknown History furosemide 40 mg tablet 40 mg PO DAILY PRN Edema 12/17/21 01/06/22 Unknown History atorvastatin 20 mg tablet 1 tab PO DAILY 02/04/22 Unknown History calcium carbonate 500 mg calcium 1 tab PO DAILY 02/04/22 Unknown History (1,250 mg) tablet insulin glargine 100 unit/mL 8 unit subcut DAILY 02/04/22 Unknown History subcutaneous solution (Lantus U-100 Insulin) levothyroxine 75 mcg tablet 75 mcg PO DAILY@0600 02/04/22 Unknown History lidocaine-prilocaine 2.5 %-2.5 % 1 appl topical DIRECTED PRN to 02/04/22 Unknown History topical cream access port before dialysis losartan 50 mg tablet 1 tab PO DAILY 02/04/22 Unknown History pantoprazole 40 mg tablet,delayed 1 tab PO DAILY 02/04/22 Unknown History release Physical Exam Vital Signs: Last Vital Signs Temp 98.4 F 02/04/22 11:26 Pulse 75 02/04/22 11:26 Resp 21 H 02/04/22 11:26 BP 143/65 H 02/04/22 11:26 Pulse Ox 96 02/04/22 11:26 O2 Del Method 02/04/22 11:26 Oxygen Flow Rate 2 02/04/22 11:26 BMI result Body Mass Index 31.4 Results Lab Results Result Diagrams: 02/04/22 11:40 02/04/22 11:40 Assessment and Plan (1) Type 2 diabetes mellitus with hyperglycemia: Qualifiers: Diabetes mellitus intermediate accountant insulin use: with [facility] use Qualified Code(s): E11.65 - Type 2 diabetes mellitus with hyperglycemia; Z79.4 - assisted (current) use of insulin Status: Acute (2) CHF (congestive heart failure): Status: Acute (3) ESRD on dialysis: Status: Acute Plan dialysis ordered for today Time Spent With Patient Time: Total time managing care of this patient today ____ minutes. Procedures Date of Service Date of Service: 02/04/22
[2022-02-04 11:54] LABS: VBG Base Excess 0.9 mmol/L; VBG HCO3 26 mmol/L (22-26); VBG pCO2 48 mmHg; VBG pH 7.34 (7.32-7.43); VBG pO2 51 mmHg
[2022-02-04 11:54] LABS: Basophils Absolute Auto 0.1 X10*3/uL (0.0-0.2); Basophils Percent Auto 0.9 % (0-2); Eosinophils Absolute Auto 0.2 X10*3/uL (0.0-0.4); Eosinophils Percent Auto 2.1 % (0-4); Hematocrit 28.4 % (37.0-47.0); Hemoglobin 8.3 g/dl (12.0-16.0); Imm Gran Abs Auto 0.04 X10*3/uL (0.00-0.03); Imm Gran Pct Auto 0.5 % (0.0-0.4); Lymphocytes Absolute Auto 1.1 X10*3/uL (1.2-4.9); Lymphocytes Percent Auto 13.2 % (20-40); Mean Corpuscular HGB Conc 29.2 g/dl (31.0-35.0); Mean Corpuscular Hemoglobin 28.4 pg (27.0-33.0); Mean Corpuscular Volume 97.3 fL (80.0-98.0); Mean Platelet Volume 10.5 fL (9.4-12.3); Monocytes Absolute Auto 0.6 X10*3/uL (0.1-1.2); Monocytes Percent Auto 6.6 % (2-11); Neutrophils Absolute Auto 6.5 x10*3/uL (2.0-8.3); Neutrophils Percent Auto 76.7 % (45-73); Platelet Count 356 X10*3/uL (160-400); Red Blood Count 2.92 X10*6/uL (4.20-5.50); Red Cell Distribution Width 16.1 % (11.0-16.0); White Blood Count 8.4 X10*3/uL (4.8-10.8)
[2022-02-04] MEDS: Albuterol/Iprat 2.5/0.5MG 3 ML AMPUL.NEB INHALE (11:54)
[2022-02-04 11:56] VITALS: PULSE 76; RESP 20; O2SAT 94
[2022-02-04 12:29] LABS: B Type Natriuretic Peptide 3610 pg/mL (<100)
[2022-02-04 12:34] LABS: Alanine Aminotransferase 10 U/L (0-31); Albumin Level 3.8 g/dL (3.5-5.0); Alkaline Phosphatase 113 U/L (39-117); Anion Gap 21 (12-20); Aspartate Amino Transferase 13 U/L (5-31); Bilirubin Direct 0.2 mg/dL (0.0-0.5); Bilirubin Total 0.6 mg/dL (0.0-1.0); Blood Urea Nitrogen 41 mg/dL (9-16); Calcium 10.4 mg/dL (8.4-10.2); Carbon Dioxide 27 mmol/L (22-29); Chloride 102 mmol/L (96-108); Creatinine Clr Calc Pharmacy 7.6; Estimated Glomerular Filt Rate 6; Glucose Random 256 mg/dL (60-115); Magnesium 2.3 mg/dL (1.6-2.6); Sodium 144 mmol/L (135-145); Total Protein 6.7 g/dL (6.5-8.0)
[2022-02-04 12:35] LABS: Troponin-I High Sensitivity < 3.5 ng/L (<3.5-17.0)
[2022-02-04 12:44] LABS: Influenza A PCR NEGATIVE (Negative); Influenza B PCR NEGATIVE (Negative); Resp Syncy Virus RNA Qual PCR NEGATIVE (Negative); SARS COV2 PCR INHOUSE NEGATIVE (Negative)
[2022-02-04 12:45] LABS: Lactic Acid 2.5 mmol/L (0.5-2.0)
--- NOTE | 2022-02-04 13:18 | PHA.MEDREC ---
Pharmacy Consult ? Medication Reconciliation Pharmacy has completed the medication reconciliation. Water Quality Control Engineer used; pt with list on phone. She told me she this was a full list, I asked about the many medications recently filled and she said that her heart doctor cleared the list and we started fresh.
[2022-02-04 13:47] LABS: Reflex Lactate? Lactic Acid Added
[2022-02-04 14:59] VITALS: BP 154/72; PULSE 80; RESP 20; O2SAT 91
--- NOTE | 2022-02-04 15:22 | P.HPHOSP_ITS ---
History of Present Illness Date of Service: 02/04/22 Chief Complaint: SOB 62-year-old woman with history of end-stage renal disease on dialysis presented to the ER with complaints of worsening shortness breath or cough. She missed dialysis today because she felt unwell decided to come to the ER for further evaluation. She denied chest pain, nausea, vomiting, diarrhea, fever, recent illness. She did report that she has had an increase cough over the last 24 hours. He does have a history of severe aortic stenosis and follows at [facility] and TAVR is planned for the near future. Her shortness breath worsened overnight, with exertion and while lying flat. According to the record from the emergency department EMS found her and respiratory distress, tripoding and tachypneic. Her oxygen saturation was 86% on room air, she does not wear oxygen at home. In the ER she was placed on 4 L of nasal cannula with oxygen saturation greater than 90%. Potassium 6.0, creatinine 7.21 lactic acid 2.5. COVID, flu and RSV negative, chest x-ray showing cardiomegaly with mild CHF, bilateral pleural effusions with underlying atelectasis. Blood pressure mildly elevated. In their ER she was given a DuoNeb treatment with good effect. To be admitted for further management treatment of volume overload secondary to end- stage renal disease. Review of Systems Review of Systems: Denies any recent fever chills or decrease in appetite respiratory See HPI cardiovascular Denies chest pain gastrointestinal denies any dysphagia abdominal pain nausea vomiting or diarrhea genitourinary denies any dysuria frequency or hematuria musculoskeletal denies any joint pain or swelling neuropsych denies any weakness or seizures all other systems reviewed are negative [facility] Medical History (Updated 02/04/22 @ 17:46 by Salome Blanco NP) Anemia Aortic stenosis Congestive heart failure COPD (chronic obstructive pulmonary disease) CVA (cerebral vascular accident) ESRD on dialysis GI bleed Hypercholesterolemia Hypertension Hypertensive cardiovascular disease Hypothyroid Insomnia SLOAN (obstructive sleep apnea) Type 2 diabetes mellitus with hyperglycemia Family History Mother Chronic kidney disease CAD (coronary artery disease) Father No problems noted. Sister Thyroid cancer Brother No problems noted. Daughter No problems noted. Daughter No problems noted. 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 Cognitive needs: Yes (walker) Hearing needs: No Vision needs: Yes (Glasses) Meds Allergies Allergy/AdvReac Type Severity Reaction Status Date / Time baclofen AdvReac Severe Confusion Verified 02/04/22 11:26 Active Medications: Current Medications Pharmacy Consult (Consult Rx Perform Med Rec) 1 each MISCELLANE ONCE PRN PRN Reason: Consult order Home Medications Medication Instructions Recorded Confirmed Last Taken Type labetalol 300 mg tablet 300 mg PO BID 11/04/20 02/04/22 Unknown History sevelamer carbonate 800 mg tablet 800 mg PO TID 12/19/20 02/04/22 Unknown History gabapentin 100 mg capsule 100 mg PO DAILY 12/11/21 02/04/22 Unknown History insulin glargine 100 unit/mL 8 unit subcut DAILY 02/04/22 02/04/22 Unknown History subcutaneous solution (Lantus U-100 Insulin) levothyroxine 75 mcg tablet 75 mcg PO DAILY@0600 02/04/22 02/04/22 Unknown History lisinopril 5 mg tablet 1 tab PO DAILY 02/04/22 02/04/22 Unknown History Physical Exam Vital Signs and Narrative: Vital Signs: Last Vital Signs Temp 98.4 F 02/04/22 11:26 Pulse 80 02/04/22 14:59 Resp 20 02/04/22 14:59 BP 154/72 H 02/04/22 14:59 Pulse Ox 91 L 02/04/22 14:59 O2 Del Method 02/04/22 14:59 O2 Flow Rate 2 02/04/22 14:59 Oxygen Flow Rate 2 02/04/22 11:26 BMI result Body Mass Index 31.4 Appearing in no acute distress head is normocephalic atraumatic eyes pupils are PERRLA sclera is anicteric mouth throat mucous membranes are intact and moist neck is supple no lymphadenopathy, no JVD noted lung sounds are clear to auscultation heart RR, Murmur positive bowel sounds, abdomen is soft, nontender neuro patient is alert x3, no focal deficits Results Labs CBC and Chem 7: 02/04/22 11:40 02/04/22 11:40 Labs: Laboratory Results - last 24 hr 02/04/22 02/04/22 02/04/22 11:32 11:39 11:40 MCV 97.3 MCH 28.4 MCHC 29.2 L RDW 16.1 H Plt Count 356 MPV 10.5 Immature Gran % (Auto) 0.5 H Neut % (Auto) 76.7 H Lymph % (Auto) 13.2 L [place] % (Auto) 6.6 Eos % (Auto) 2.1 Baso % (Auto) 0.9 Lymph # (Auto) 1.1 L [place] # (Auto) 0.6 Eos # (Auto) 0.2 Baso # (Auto) 0.1 Abs Immat Gran (auto) 0.04 H Absolute Neuts (auto) 6.5 Absolute Nucleated RBC 0.000 Nucleated RBC % (auto) 0.0 VBG pH VBG pCO2 VBG pO2 VBG HCO3 VBG O2 Saturation VBG Base Excess Anion Gap Estim Creat Clear Calc Estimated GFR Random Glucose Lactic Acid 2.5 H* Calcium Magnesium Total Bilirubin Direct Bilirubin AST ALT Alkaline Phosphatase Troponin I High Sens B-Natriuretic Peptide Total Protein Albumin Influenza Type A (PCR) NEGATIVE Influenza Type B (PCR) NEGATIVE RSV RNA Qual (PCR) NEGATIVE SARS-CoV-2 RNA (RT-PCR) NEGATIVE 02/04/22 02/04/22 02/04/22 11:40 11:40 11:40 MCV MCH MCHC RDW Plt Count MPV Immature Gran % (Auto) Neut % (Auto) Lymph % (Auto) [place] % (Auto) Eos % (Auto) Baso % (Auto) Lymph # (Auto) [place] # (Auto) Eos # (Auto) Baso # (Auto) Abs Immat Gran (auto) Absolute Neuts (auto) Absolute Nucleated RBC Nucleated RBC % (auto) VBG pH VBG pCO2 VBG pO2 VBG HCO3 VBG O2 Saturation VBG Base Excess Anion Gap 21 H Estim Creat Clear Calc 7.6 Estimated GFR 6 Random Glucose 256 H Lactic Acid Calcium 10.4 H Magnesium 2.3 Total Bilirubin 0.6 Direct Bilirubin 0.2 AST 13 ALT 10 Alkaline Phosphatase 113 Troponin I High Sens < 3.5 B-Natriuretic Peptide 3610 H Total Protein 6.7 Albumin 3.8 Influenza Type A (PCR) Influenza Type B (PCR) RSV RNA Qual (PCR) SARS-CoV-2 RNA (RT-PCR) 02/04/22 11:48 MCV MCH MCHC RDW Plt Count MPV Immature Gran % (Auto) Neut % (Auto) Lymph % (Auto) [place] % (Auto) Eos % (Auto) Baso % (Auto) Lymph # (Auto) [place] # (Auto) Eos # (Auto) Baso # (Auto) Abs Immat Gran (auto) Absolute Neuts (auto) Absolute Nucleated RBC Nucleated RBC % (auto) VBG pH 7.34 VBG pCO2 48 VBG pO2 51 VBG HCO3 26 VBG O2 Saturation 75.0 VBG Base Excess 0.9 Anion Gap Estim Creat Clear Calc Estimated GFR Random Glucose Lactic Acid Calcium Magnesium Total Bilirubin Direct Bilirubin AST ALT Alkaline Phosphatase Troponin I High Sens B-Natriuretic Peptide Total Protein Albumin Influenza Type A (PCR) Influenza Type B (PCR) RSV RNA Qual (PCR) SARS-CoV-2 RNA (RT-PCR) Imaging Radiologist's Impressions: Impressions Chest X-Ray 02/04/22 11:27 IMPRESSION: 1. Cardiomegaly with mild CHF. 2. Bilateral pleural effusions with underlying atelectasis/infiltrate. Assessment and Plan (1) Bilateral pleural effusion: Status: Acute Plan 62 year old women admitted with volume overload secondary to ESRD on HD Volume overload secondary to end-stage renal disease On dialysis Wednesday, Wednesday, Wednesday Missed dialysis this morning due to feeling unwell BNP 3610 Plan for dialysis this evening Nephrology consultation Monitor on telemetry conntine sevelamer Lactic acidosis Secondary to renal disease, not sepsis Normocytic anemia Secondary to ESRD Hyperkalemia secondary to ESRD plan for dialysis tonight Severe Following at [facility], plans for TAVR Follows with Dr. Amaral Diabetes type 2 ss. ada diet HTN continue home medications Hypothyroidism Continue levothyroxine SLOAN may use cpap from home COPD. Chronic. No exacerbation Albuterol Mechanical compression boots Attending Dr. Albrecht Full code Patient required 2 inpatient midnights for treatment of volume overload secondary to end-stage renal disease requiring dialysis inpatient Time Spent With Patient Time: Total time managing care of this patient today ____ minutes. Quality Stroke Does the patient have a stroke diagnosis?: No VTE Prior VTE?: No VTE Risk Level:: Medical - moderate - high VTE Device Contraindication: N/A - Device Ordered VTE Drug Contraindication: Treatment Not Indicated
[2022-02-04 17:12] VITALS: BP 156/69; PULSE 84; RESP 22; O2SAT 96
--- NOTE | 2022-02-04 19:59 | PC.NURSE ---
pt @ dialysis, plan to return to ED.
--- NOTE | 2022-02-04 20:41 | MHC.CM.PN ---
Attempted to meet with admitted patient with bed assignment pending. Pt in dialysis.
[2022-02-04 20:58] LABS: Glucose, Whole Blood 141 mg/dL (60-115)
[2022-02-04 23:45] VITALS: BP 143/59; PULSE 76; RESP 19; TEMP 36.9; O2SAT 97
--- NOTE | 2022-02-05 00:03 | PC.NURSE ---
Patient returned from dialysis, bedtime medications administered per APR.
[2022-02-05 00:05] VITALS: BP 128/55; PULSE 96; RESP 18; O2SAT 98
[2022-02-05] MEDS: Labetalol HCL 100 MG TABLET PO (00:13)
[2022-02-05] MEDS: Sevelamer Carbonate Tablet 800 MG TABLET PO (00:13)
[2022-02-05] MEDS: hydrALAZINE HCl 50 MG TABLET 100 MG PO (00:13)
[2022-02-05] MEDS: Labetalol HCL 200 MG TABLET PO (00:14)
--- NOTE | 2022-02-05 00:39 | PC.NURSE ---
Patient is alert and oriented x3, VSS. Patient denies any pain at present. O2 Sat 98% on O2 at 2 LPM NC. Patient reports cough and SOB improved after dialysis. Patient denies urinary symptoms, patient reports urinating scant amount of urine 1-2xday.
[2022-02-05 02:26] VITALS: BP 136/57; PULSE 77; RESP 18; TEMP 37.1; O2SAT 95
--- NOTE | 2022-02-05 02:31 | MHC.EDTECH ---
pt vitals were taken she is resting watching tv, water was given no issues
--- NOTE | 2022-02-05 03:26 | MHC.EDTECH ---
pt resting vitals taken
[2022-02-05 04:46] LABS: Hematocrit 28.5 % (37.0-47.0); Hemoglobin 8.8 g/dl (12.0-16.0); Mean Corpuscular HGB Conc 30.9 g/dl (31.0-35.0); Mean Corpuscular Hemoglobin 28.7 pg (27.0-33.0); Mean Corpuscular Volume 92.8 fL (80.0-98.0); Mean Platelet Volume 10.6 fL (9.4-12.3); Platelet Count 341 X10*3/uL (160-400); Red Blood Count 3.07 X10*6/uL (4.20-5.50); Red Cell Distribution Width 15.8 % (11.0-16.0)
[2022-02-05 04:47] LABS: WBC ABN SCTR FOR CBC 1; White Blood Count 10.3 X10*3/uL (4.8-10.8)
[2022-02-05 05:15] LABS: Band Neutrophils Percent 2 % (3-5); Basophils Abs Manual 0.1 X10*3/uL (0.0-0.2); Basophils Percent Manual 1 % (0-2); Large Platelet PRESENT; Lymphocytes Absolute Manual 1.1 X10*3/uL (1.2-4.9); Lymphocytes Percent Manual 11 % (20-40); Macrocytosis 1+ (5-14) /OIF; Monocytes Absolute Manual 0.6 X10*3/uL (0.1-1.2); Monocytes Percent Manual 6 % (2-11); Neutrophils Absolute Manual 8.4 X10*3/uL (2.0-8.3); Neutrophils Percent Manual 80 % (45-73); Platelet Estimate SLIGHTLY INCREASED (NORMAL); Platelet Morphology Comment NORMAL; RBC Morphology NORMAL; Smudge Cells PRESENT
[2022-02-05 05:16] LABS: Toxic Vacuolation PRESENT
[2022-02-05 05:25] LABS: Anion Gap 17 (12-20); Blood Urea Nitrogen 19 mg/dL (9-16); Calcium 9.8 mg/dL (8.4-10.2); Carbon Dioxide 25 mmol/L (22-29); Chloride 97 mmol/L (96-108); Creatinine Clr Calc Pharmacy 15.4; Estimated Glomerular Filt Rate 13; Glucose Random 152 mg/dL (60-115); Potassium 4.5 mmol/L (3.3-5.1); Sodium 134 mmol/L (135-145)
--- NOTE | 2022-02-05 05:37 | MHC.EDTECH ---
pt is resting so far she has not voided on my 11-7 shift
[2022-02-05] MEDS: Levothyroxine Sodium 75 MCG TABLET PO (06:45)
[2022-02-05 07:11] VITALS: BP 143/58; PULSE 72; RESP 19; O2SAT 97
[2022-02-05 07:24] LABS: Glucose, Whole Blood 159 mg/dL (60-115)
[2022-02-05] MEDS: Insulin Lispro 100 UNIT/ML 3 ML VIAL SUBCUT (07:50)
[2022-02-05] MEDS: 0.9 % Sodium Chloride Flush 3 ML SYRINGE IVFLUSH (07:53)
[2022-02-05 07:55] VITALS: O2SAT 93
--- NOTE | 2022-02-05 07:55 | PC.NURSE ---
Pt and daughter requesting to be d/c'd for appt in [facility] needed prior to surgery. Hospitalist aware. 02 removed and sat 93%. No diff breathing noted. +bruit and thrill to LAVF. Pt declines other meds at this time but agreeable to Insulin. Ate breakfast.
[2022-02-05] MEDS: Albuterol Sulfate (0.083%) 2.5 MG/3 ML VIAL.NEB INHALE (08:25)
[2022-02-05 08:26] VITALS: PULSE 78; RESP 18; O2SAT 95
--- NOTE | 2022-02-05 08:40 | PM.DS ---
DS: Providers Provider Date of Service: 02/05/22 Date of admission: 02/04/22 16:16 Date of discharge: 02/05/22 Primary care physician: Mason Lopez MD Attending physician on discharge: Conrad Jaeger Discharging clinician: Carmen Liao DS: Diagnosis Discharge Diagnosis (1) Bilateral pleural effusion: Status: Acute DS: Summary Hospital Course Hospital Course: From H&P on day of admission 62-year-old woman with history of end-stage renal disease on dialysis presented to the ER with complaints of worsening shortness breath or cough.? She missed dialysis today because she felt unwell decided to come to the ER for further evaluation.? She denied chest pain, nausea, vomiting, diarrhea, fever, recent illness.? She did report that she has had an increase cough over the last 24 hours.? He does have a history of severe aortic stenosis and follows at [facility] and TAVR is planned for the near future.? Her shortness breath worsened overnight, with exertion and while lying flat.? According to the record from the emergency department EMS found her and respiratory distress, tripoding and tachypneic.? Her oxygen saturation was 86% on room air, she does not wear oxygen at home.? In the ER she was placed on 4 L of nasal cannula with oxygen saturation greater than 90%.? Potassium 6.0, creatinine 7.21 lactic acid 2.5.? COVID, flu and RSV negative, chest x-ray showing cardiomegaly with mild CHF, bilateral pleural effusions with underlying atelectasis.? Blood pressure mildly elevated.? In their ER she was given a DuoNeb treatment with good effect.? To be admitted for further management treatment of volume overload secondary to end-stage renal disease. Patient was admitted for respiratory failure after missing hemodialysis, she underwent hemodialysis on the night of admission. her breathing improved, she was able to be weaned off of supplemental oxygen and feels back to baseline. She is eager to leave the hospital as she has a follow-up appointment this morning with her cardiology team to move up the timeline of her planned TAVR. She had no wbc, fever or cough suggestive of infection. 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 Discharge coordination time: Greater than 30 minutes Quality: Safe Use of Opioids Does Pt have an Active Cancer Diagnosis on the Problem List?: No Quality: Stroke Does the patient have a stroke diagnosis?: No Physical Exam Vital Signs: Vital Signs: Last Vital Signs Temp 98.7 F 02/05/22 02:26 Pulse 78 02/05/22 08:26 Resp 18 02/05/22 08:26 BP 143/58 H 02/05/22 07:11 Pulse Ox 93 02/05/22 07:55 O2 Del Method 02/05/22 07:55 O2 Flow Rate 2 02/05/22 02:26 Oxygen Flow Rate 2 02/04/22 11:26 BMI result Body Mass Index 31.4 Const: General: cooperative, comfortable, no acute distress, alert and awake Nutritional Appearance: overweight Resp: Effort & Inspection: normal respiratory effort and able to speak in complete sentences Cardio: Rate: regular rate Heart sounds: S1 normal heart sound present and S2 normal heart sound present GI: Inspection: No distended Palpation (GI): Soft to palpation Neuro: General: CN's II-XI intact bilaterally Extrem: General: Yes no pedal edema DS: Data Data Completed and Pending Completed studies during hospitalization [Text1]: Procedures Assistance with Respiratory Ventilation, Less than 24 Consecutive Hours, Continuous Positive Airway Pressure (08/19/20) Performance of Urinary Filtration, Intermittent, Less than 6 Hours Per Day (11/17/20) Labs on day of discharge: Laboratory Results - last 24 hr 02/04/22 02/04/22 02/04/22 11:32 11:39 11:40 WBC 8.4 RBC 2.92 L Hgb 8.3 L Hct 28.4 L MCV 97.3 MCH 28.4 MCHC 29.2 L RDW 16.1 H Plt Count 356 MPV 10.5 Immature Gran % (Auto) 0.5 H Neut % (Auto) 76.7 H Lymph % (Auto) 13.2 L [place] % (Auto) 6.6 Eos % (Auto) 2.1 Baso % (Auto) 0.9 Lymph # (Auto) 1.1 L [place] # (Auto) 0.6 Eos # (Auto) 0.2 Baso # (Auto) 0.1 Abs Immat Gran (auto) 0.04 H Absolute Neuts (auto) 6.5 Absolute Nucleated RBC 0.000 Nucleated RBC % (auto) 0.0 Neutrophils % (Manual) Band Neutrophils % Lymphocytes % (Manual) Monocytes % (Manual) Basophils % (Manual) Abs Neuts (Manual) Lymphocytes # (Manual) Monocytes # (Manual) Basophils # (Manual) Smudge Cells Toxic Vacuolation Platelet Estimate Large Platelets Plt Morphology Comment RBC Morphology Macrocytosis VBG pH VBG pCO2 VBG pO2 VBG HCO3 VBG O2 Saturation VBG Base Excess Sodium Potassium Chloride Carbon Dioxide Anion Gap BUN Creatinine Estim Creat Clear Calc Estimated GFR POC Glucose Random Glucose Lactic Acid 2.5 H* Lactic Acid F/U @ 2Hr Calcium Magnesium Total Bilirubin Direct Bilirubin AST ALT Alkaline Phosphatase Troponin I High Sens B-Natriuretic Peptide Total Protein Albumin Influenza Type A (PCR) NEGATIVE Influenza Type B (PCR) NEGATIVE RSV RNA Qual (PCR) NEGATIVE SARS-CoV-2 RNA (RT-PCR) NEGATIVE 02/04/22 02/04/22 02/04/22 11:40 11:40 11:40 WBC RBC Hgb Hct MCV MCH MCHC RDW Plt Count MPV Immature Gran % (Auto) Neut % (Auto) Lymph % (Auto) [place] % (Auto) Eos % (Auto) Baso % (Auto) Lymph # (Auto) [place] # (Auto) Eos # (Auto) Baso # (Auto) Abs Immat Gran (auto) Absolute Neuts (auto) Absolute Nucleated RBC Nucleated RBC % (auto) Neutrophils % (Manual) Band Neutrophils % Lymphocytes % (Manual) Monocytes % (Manual) Basophils % (Manual) Abs Neuts (Manual) Lymphocytes # (Manual) Monocytes # (Manual) Basophils # (Manual) Smudge Cells Toxic Vacuolation Platelet Estimate Large Platelets Plt Morphology Comment RBC Morphology Macrocytosis VBG pH VBG pCO2 VBG pO2 VBG HCO3 VBG O2 Saturation VBG Base Excess Sodium 144 Potassium 6.0 H* D Chloride 102 Carbon Dioxide 27 Anion Gap 21 H BUN 41 H Creatinine 7.21 H* Estim Creat Clear Calc 7.6 Estimated GFR 6 POC Glucose Random Glucose 256 H Lactic Acid Lactic Acid F/U @ 2Hr Calcium 10.4 H Magnesium 2.3 Total Bilirubin 0.6 Direct Bilirubin 0.2 AST 13 ALT 10 Alkaline Phosphatase 113 Troponin I High Sens < 3.5 B-Natriuretic Peptide 3610 H Total Protein 6.7 Albumin 3.8 Influenza Type A (PCR) Influenza Type B (PCR) RSV RNA Qual (PCR) SARS-CoV-2 RNA (RT-PCR) 02/04/22 02/04/22 02/04/22 11:48 17:46 20:35 WBC RBC Hgb Hct MCV MCH MCHC RDW Plt Count MPV Immature Gran % (Auto) Neut % (Auto) Lymph % (Auto) [place] % (Auto) Eos % (Auto) Baso % (Auto) Lymph # (Auto) [place] # (Auto) Eos # (Auto) Baso # (Auto) Abs Immat Gran (auto) Absolute Neuts (auto) Absolute Nucleated RBC Nucleated RBC % (auto) Neutrophils % (Manual) Band Neutrophils % Lymphocytes % (Manual) Monocytes % (Manual) Basophils % (Manual) Abs Neuts (Manual) Lymphocytes # (Manual) Monocytes # (Manual) Basophils # (Manual) Smudge Cells Toxic Vacuolation Platelet Estimate Large Platelets Plt Morphology Comment RBC Morphology Macrocytosis VBG pH 7.34 VBG pCO2 48 VBG pO2 51 VBG HCO3 26 VBG O2 Saturation 75.0 VBG Base Excess 0.9 Sodium Potassium Chloride Carbon Dioxide Anion Gap BUN Creatinine Estim Creat Clear Calc Estimated GFR POC Glucose 141 H Random Glucose Lactic Acid Lactic Acid F/U @ 2Hr 1.0 Calcium Magnesium Total Bilirubin Direct Bilirubin AST ALT Alkaline Phosphatase Troponin I High Sens B-Natriuretic Peptide Total Protein Albumin Influenza Type A (PCR) Influenza Type B (PCR) RSV RNA Qual (PCR) SARS-CoV-2 RNA (RT-PCR) 02/05/22 02/05/22 02/05/22 04:25 04:25 07:09 WBC 10.3 RBC 3.07 L Hgb 8.8 L Hct 28.5 L MCV 92.8 MCH 28.7 MCHC 30.9 L RDW 15.8 Plt Count 341 MPV 10.6 Immature Gran % (Auto) Cancelled Neut % (Auto) Cancelled Lymph % (Auto) Cancelled [place] % (Auto) Cancelled Eos % (Auto) Cancelled Baso % (Auto) Cancelled Lymph # (Auto) Cancelled [place] # (Auto) Cancelled Eos # (Auto) Cancelled Baso # (Auto) Cancelled Abs Immat Gran (auto) Cancelled Absolute Neuts (auto) Cancelled Absolute Nucleated RBC 0.000 Nucleated RBC % (auto) 0.0 Neutrophils % (Manual) 80 H Band Neutrophils % 2 L Lymphocytes % (Manual) 11 L Monocytes % (Manual) 6 Basophils % (Manual) 1 Abs Neuts (Manual) 8.4 H Lymphocytes # (Manual) 1.1 L Monocytes # (Manual) 0.6 Basophils # (Manual) 0.1 Smudge Cells PRESENT Toxic Vacuolation PRESENT Platelet Estimate SLIGHTLY INCREASED Large Platelets PRESENT Plt Morphology Comment NORMAL RBC Morphology NORMAL Macrocytosis 1+ (5-14) VBG pH VBG pCO2 VBG pO2 VBG HCO3 VBG O2 Saturation VBG Base Excess Sodium 134 L Potassium 4.5 D Chloride 97 Carbon Dioxide 25 Anion Gap 17 BUN 19 H Creatinine 3.56 H Estim Creat Clear Calc 15.4 Estimated GFR 13 POC Glucose 159 H Random Glucose 152 H Lactic Acid Lactic Acid F/U @ 2Hr Calcium 9.8 Magnesium Total Bilirubin Direct Bilirubin AST ALT Alkaline Phosphatase Troponin I High Sens B-Natriuretic Peptide Total Protein Albumin Influenza Type A (PCR) Influenza Type B (PCR) RSV RNA Qual (PCR) SARS-CoV-2 RNA (RT-PCR) Discharge Plan Discharge Anticipated Discharge Date/Time: 02/05/22 08:35 Patient Disposition: Home, Self-Care Discharge Diagnosis: acute respiratory failure with hypoxia Referrals: Po,Mason Casarez MD [Primary Care Provider] - 1 Week Discharge Medications: Continued amlodipine 5 mg tablet 5 mg PO DAILY 30 Days Qty: 90 4RF Protocol: Hold for SBP< HOLD for SBP < : 90 (DME) pen needle, diabetic [Comfort EZ Pen [place]] 31 gauge x 5/16 needle See Rx Instructions .Route Qty: 100 5RF Rx Instructions: uses 4X/day insulin aspart U-100 [Novolog Flexpen U-100 Insulin] 100 unit/mL (3 mL) insulin pen See Rx Instructions subcut TID Qty: 15 5RF Rx Instructions: 6-10 units subcutaneously 3 times a day; inject up to 30 units daily 100-150: 4U, 151-200: 6U >201: 8 U >300: 10U (DME) pen needle, diabetic [BD Ultra-Fine Mini Pen Needle] 31 gauge x 3/16 needle See Rx Instructions .ROUTE .MEDSUPPLY Qty: 100 11RF Rx Instructions: As directed hydralazine 100 mg tablet 100 mg PO BID 90 Days Qty: 180 0RF (DME) Hospital bed See Rx Instructions .Route .MEDSUPPLY Qty: 1 0RF Rx Instructions: As directed (DME) Shower Chair See Rx Instructions .Route .MEDSUPPLY Qty: 1 0RF Rx Instructions: As directed labetalol 300 mg tablet 300 mg PO BID sevelamer carbonate 800 mg tablet 800 mg PO TID insulin glargine [Lantus U-100 Insulin] 100 unit/mL solution 8 unit subcut DAILY levothyroxine 75 mcg tablet 75 mcg PO DAILY@0600 lisinopril 5 mg tablet 1 tab PO DAILY (DME) FreeStyle Lite Strips Strip See Rx Instructions .ROUTE .MEDSUPPLY Qty: 300 3RF Rx Instructions: As directed check the BS TID (DME) FreeStyle Rusty 14 Day Sensor Kit See Rx Instructions .ROUTE .MEDSUPPLY Qty: 6 3RF Rx Instructions: As directed ([facility]) AUTO PAP PS6-20 CM h20 humidified AIR See Rx Instructions .Route .MEDSUPPLY Qty: 1 0RF Rx Instructions: As directed gabapentin 100 mg capsule 100 mg PO DAILY albuterol sulfate 90 mcg/actuation HFA aerosol inhaler 2 inh inhalation Q6H PRN (Reason: shortness of breath or wheezing) 30 Days Qty: 18 12RF Discharge Orders: Discharge Order (Routine); Ordered 02/05/22 Ordered By: Carmen Liao Activity on Discharge: As tolerated Stand Alone Forms: Patient Portal Discharge page Care Plan Goals: see below Health Concerns: respiratory failure - resolved after dialysis CHF End stage renal dz - missed HD, had HD 02/04 aortic stenosis hypokalemia - resolved Plan of Treatment: plan for follow up appointment with cardiology at [facility] to schedule date for TAVR go to closet ER if SOB returns Assessment: see discharge summary Discharge Date/Time: 02/05/22 08:51
--- NOTE | 2022-02-05 09:01 | MHC.CM.PN ---
Patient d/c'd before being seen by case management.
== END 2022-02-05 08:51 | disposition home or self-care (01) | DRG 640 ==
LOC: HO.ED 13:06 → HO.EDOVER 16:21
PROVIDERS: Physician Assistant; Admitting Provider Nurse Practitioner Acute Care; Emergency Provider Student in an Organized Health Care Education/Training Program; PCP Internal Medicine; Visit Provider Physician Assistant Medical
DX: E87.70 Fluid overload, unspecified (principal); J96.01 Acute respiratory failure with hypoxia; N18.6 End stage renal disease; I13.2 Hypertensive heart and chronic kidney disease with heart failure and with stage 5 chronic kidney disease, or end stage renal disease; E11.65 Type 2 diabetes mellitus with hyperglycemia; I35.0 Nonrheumatic aortic (valve) stenosis; E87.5 Hyperkalemia; E78.00 Pure hypercholesterolemia, unspecified; G47.33 Obstructive sleep apnea (adult) (pediatric); E03.9 Hypothyroidism, unspecified; E87.20 Acidosis, unspecified; I50.9 Heart failure, unspecified; D63.1 Anemia in chronic kidney disease; J44.9 Chronic obstructive pulmonary disease, unspecified; E11.22 Type 2 diabetes mellitus with diabetic chronic kidney disease; Z91.15 Patient's noncompliance with renal dialysis; Z99.2 Dependence on renal dialysis; Z86.73 Personal history of transient ischemic attack (TIA), and cerebral infarction without residual deficits; Z20.822 Contact with and (suspected) exposure to COVID-19; Z79.4 Long term (current) use of insulin; Z79.890 Hormone replacement therapy; Z79.899 Other long term (current) drug therapy
CPT/HCPCS: 0241U; 36415; 71045; 80048; 80076; 82803; 82947; 83605; 83735; 83880; 84484; 85007; 85025; 85027; 87040; 90999; 93005; 94640; 99285

== ENCOUNTER → 2022-05-19 14:03 | Outpatient (BNVA) | payer OTHER, SELFPAY | PROVIDERS: PCP Internal Medicine; Visit Provider Psychiatry & Neurology Neurology | DX: I63.9 Cerebral infarction, unspecified (principal); J38.00 Paralysis of vocal cords and larynx, unspecified | CPT/HCPCS: 99202 ==

== ENCOUNTER 2022-05-26 09:00 | Outpatient (REF) | payer OTHER, SELFPAY ==
[2022-05-26 12:07] LABS: Blood Urea Nitrogen 39 mg/dL (9-16); Estimated Glomerular Filt Rate 8
== END 2022-05-26 09:01 | disposition home or self-care (01) ==
LOC: HO.LAB 09:00
PROVIDERS: Absent Provider Radiology Vascular & Interventional Radiology; PCP Internal Medicine; Visit Provider Nurse Practitioner Family
DX: R94.4 Abnormal results of kidney function studies (principal); R79.89 Other specified abnormal findings of blood chemistry
CPT/HCPCS: 36415; 82565; 84520

== ENCOUNTER 2022-06-09 13:23 | Outpatient (REF) | payer OTHER, SELFPAY ==
--- NOTE | ~2022-06-09 | US_ITS ---
EXAMINATION: US EXTRACRANIAL CAROTID DUPLEX, BILATERAL CLINICAL INFORMATION: Cerebral infarction. COMPARISON: 11/04/2021. TECHNIQUE: Real-time ultrasound and Doppler techniques (integrating B-mode 2-D vascular images, Doppler spectral analysis and color-flow Doppler imaging) were utilized to interrogate the extracranial carotid arteries, the vertebral arteries and proximal subclavian arteries bilaterally. The degree of stenosis is determined by criteria similar to NASCET. FINDINGS: Right Side: 1. There is mild atherosclerotic plaque seen in the bifurcation/proximal ICA region. 2. The common carotid artery PSV proximally is 104 cm/s and distally 88 cm/s. 3. The proximal internal carotid artery velocities are 64 cm/s systolic and 17 cm/s diastolic. 4. The proximal external carotid artery PSV is 56 cm/s. 5. The vertebral artery shows antegrade flow. 6. The subclavian artery waveforms are normal. Left Side: 1. There is mild atherosclerotic plaque seen in the bifurcation/proximal ICA region. 2. The common carotid artery PSV proximally is 107 cm/s and distally 71 cm/s. 3. The proximal internal carotid artery velocities are 74 cm/s systolic and 17 cm/s diastolic. 4. The proximal external carotid artery PSV is 71 cm/s. 5. The vertebral artery shows bidirectional flow. 6. The subclavian artery waveforms is abnormal. US/US carotid duplex BI IMPRESSION: 1. RIGHT: Minimal, non-hemodynamically significant stenosis of the proximal right internal carotid artery corresponding to a 0-49% stenosis by velocity criteria. 2. LEFT: Minimal, non-hemodynamically significant stenosis of the proximal left internal carotid artery corresponding to a 0-49% stenosis by velocity criteria. 3. There is no change in the category severity of disease when compared to the previous study dated 11/04/2021. 4. Abnormal left subclavian artery waveform consistent with a moderate proximal subclavian artery stenosis. Bidirectional flow in the left vertebral artery consistent with presteal physiology at rest, which could result in steal physiology with exercise of the left arm.
== END 2022-06-09 13:24 | disposition home or self-care (01) ==
LOC: HO.US 13:23
PROVIDERS: PCP Internal Medicine; Visit Provider Psychiatry & Neurology Neurology
DX: Z86.73 Personal history of transient ischemic attack (TIA), and cerebral infarction without residual deficits (principal)
CPT/HCPCS: 93880

== ENCOUNTER 2022-06-30 10:26 | Outpatient (REF) | payer OTHER, SELFPAY ==
[2022-06-30 10:48] LABS: MANUAL DIFF FLAG NO
[2022-06-30 11:28] LABS: Immature Retic Fraction 6.1 % (3.0-15.9); Retic HGB Equivalent 26.6 pg (30.0-35.0); Reticulocyte Percent 1.3 % (0.5-1.8); Reticulocytes Absolute 0.052 X10*6/uL (0.026-0.095)
[2022-06-30 11:30] LABS: Basophils Absolute Auto 0.1 X10*3/uL (0.0-0.2); Eosinophils Absolute Auto 0.4 X10*3/uL (0.0-0.4); Eosinophils Percent Auto 5.2 % (0-4); Hematocrit 36.5 % (37.0-47.0); Imm Gran Abs Auto 0.03 X10*3/uL (0.00-0.03); Imm Gran Pct Auto 0.4 % (0.0-0.4); Lymphocytes Percent Auto 11.5 % (20-40); Mean Corpuscular HGB Conc 30.1 g/dl (31.0-35.0); Mean Corpuscular Hemoglobin 27.4 pg (27.0-33.0); Mean Corpuscular Volume 90.8 fL (80.0-98.0); Mean Platelet Volume 11.1 fL (9.4-12.3); Monocytes Absolute Auto 0.7 X10*3/uL (0.1-1.2); Monocytes Percent Auto 7.8 % (2-11); Neutrophils Absolute Auto 6.2 x10*3/uL (2.0-8.3); Neutrophils Percent Auto 74.1 % (45-73); Platelet Count 344 X10*3/uL (160-400); Red Blood Count 4.02 X10*6/uL (4.20-5.50); Red Cell Distribution Width 18.1 % (11.0-16.0); White Blood Count 8.4 X10*3/uL (4.8-10.8)
[2022-06-30 11:37] LABS: Estimated Average Glucose 140 mg/dL; Hemoglobin A1c % 6.5 %
[2022-06-30 11:56] LABS: B Type Natriuretic Peptide 3333 pg/mL (<100)
[2022-06-30 12:08] LABS: Erythrocyte Sedimentation Rate 38 MM/HR (0-20)
[2022-06-30 12:12] LABS: C Reactive Protein 3.95 mg/dL (< or = 0.50)
[2022-06-30 12:13] LABS: Alanine Aminotransferase 18 U/L (0-31); Albumin Level 3.9 g/dL (3.5-5.0); Alkaline Phosphatase 141 U/L (39-117); Anion Gap 22 (12-20); Aspartate Amino Transferase 15 U/L (5-31); Bilirubin Total 0.6 mg/dL (0.0-1.0); Blood Urea Nitrogen 46 mg/dL (9-16); Calcium 9.9 mg/dL (8.4-10.2); Carbon Dioxide 26 mmol/L (22-29); Chloride 100 mmol/L (96-108); Cholesterol 188 mg/dL; Glucose Random 102 mg/dL (60-115); HDL Cholesterol 68 mg/dL; Iron 45 mcg/dL (30-160); LDL Cholesterol Calculated 103 mg/dl; Percent Iron Saturation 21 % (15-50); Potassium 5.3 mmol/L (3.3-5.1); Sodium 143 mmol/L (135-145); Total Iron Binding Capacity 210 mcg/dL (228-428); Total Protein 7.4 g/dL (6.5-8.0); Triglycerides 85 mg/dL; Unsaturated Iron Binding 165 ug/dL
[2022-06-30 12:15] LABS: Estimated Glomerular Filt Rate 6
[2022-06-30 12:18] LABS: Ferritin 1326 ng/mL (10-250); Free T4 (Free Thyroxine) 0.96 ng/dL (0.71-1.85); Vitamin D 25-OH Total 31.9 ng/mL (>30)
[2022-06-30 12:23] LABS: Creatinine Urine 88.08 mg/dL
[2022-06-30 12:47] LABS: Folate 8.1 ng/mL (> or = 4.0); Thyroid Stimulating Hormone 2.15 uIU/mL (0.32-4.0); Vitamin B12 268 pg/mL (200-900)
[2022-06-30 12:47] LABS: Microalbumin Urine > 2000.0 mg/L
== END 2022-06-30 10:27 | disposition home or self-care (01) ==
LOC: HO.LAB 10:26
PROVIDERS: Absent Provider Nurse Practitioner Family; PCP Internal Medicine; Referring Provider Internal Medicine Endocrinology, Diabetes & Metabolism; Visit Provider Ophthalmology
DX: E11.65 Type 2 diabetes mellitus with hyperglycemia (principal); H34.231 Retinal artery branch occlusion, right eye; E87.0 Hyperosmolality and hypernatremia; E87.5 Hyperkalemia; Z79.4 Long term (current) use of insulin; N18.6 End stage renal disease; E55.9 Vitamin D deficiency, unspecified
CPT/HCPCS: 36415; 80053; 80061; 82043; 82306; 82607; 82728; 82746; 83036; 83540; 83880; 84439; 84443; 85025; 85027; 85045; 85652; 86140

== ENCOUNTER → 2022-07-07 09:57 | Outpatient (BNVA) | payer OTHER, SELFPAY | PROVIDERS: PCP Internal Medicine; Visit Provider Internal Medicine Endocrinology, Diabetes & Metabolism | DX: E11.65 Type 2 diabetes mellitus with hyperglycemia (principal); E11.22 Type 2 diabetes mellitus with diabetic chronic kidney disease; N18.6 End stage renal disease; Z79.4 Long term (current) use of insulin; Z99.2 Dependence on renal dialysis | CPT/HCPCS: 82947; 99212 ==

== ENCOUNTER 2022-08-16 12:56 | Inpatient (IN) | payer OTHER, SELFPAY ==
[2022-08-16] VITALS (15 sets, daily range): BP systolic 124–184; BP diastolic 62–99; PULSE 51–79; RESP 14–36; TEMP 34–37.6; O2SAT 73–100; BMI 24.0; BMI 25.0
--- NOTE | 2022-08-16 13:05 | ED.GENADULT ---
HPI - General Adult General Chief complaint: Dyspnea Stated complaint: Diff breathing Time Seen by Provider: 08/16/22 14:15 Source: patient, RN notes reviewed and old records reviewed Mode of arrival: ambulatory History of Present Illness HPI narrative: 62-year-old female with a past medical history of anemia, aortic stenosis, CHF, COPD, CVA, ESRD on HD, HLD, HTN, hypothyroid, SLOAN, tracheostomy, diabetes, CAD s/p stent/pacemaker placed and TAVR Related Data Home Medications Medication Instructions Recorded Confirmed labetalol 300 mg tablet 300 mg PO BID 11/04/20 07/07/22 sevelamer carbonate 800 mg tablet 800 mg PO TID 12/19/20 07/07/22 gabapentin 100 mg capsule 100 mg PO DAILY 12/11/21 07/07/22 levothyroxine 75 mcg tablet 75 mcg PO DAILY@0600 02/04/22 07/07/22 aspirin 81 mg tablet,delayed 81 mg PO DAILY 05/19/22 07/07/22 release (Adult Aspirin Regimen) latanoprost 0.005 % eye drops 1 drp ophthalmic (eye) QPM 05/19/22 07/07/22 Previous Rx's Medication Instructions Recorded blood sugar diagnostic (FreeStyle #300 ea 12/10/20 Lite Strips) albuterol sulfate 90 mcg/actuation 2 inh inhalation Q6H PRN shortness 12/12/20 aerosol inhaler of breath or wheezing 30 days #18 grams AUTO PAP PS6-20 CM h20 humidified #1 ea 01/03/21 AIR pen needle, diabetic 31 gauge x #100 ea 09/23/21 5 (Comfort EZ Pen Northrop) flash glucose sensor (FreeStyle #6 kits 09/30/21 Rusty 14 Day Sensor kit) pen needle, diabetic 31 gauge x #100 ea 12/10/21 3/ (BD Ultra-Fine Mini Pen Needle) Hospital bed #1 ea 01/23/22 Shower Chair #1 ea 01/23/22 levalbuterol HCl 1.25 mg/3 mL 1.25 mg (3 mL) inhalation BID #540 02/27/22 solution for nebulization mL lidocaine 5 % topical patch 1 patch topical DAILY #15 ea 06/02/22 (Lidoderm) amlodipine 5 mg tablet 10 mg PO DAILY #90 tabs 07/06/22 budesonide 0.25 mg/2 mL suspension 0.25 mg (2 mL) inhalation BID #360 07/06/22 for nebulization mL glucagon 3 mg/actuation nasal 3 mg intranasal ONCE #2 ea 07/07/22 spray (Baqsimi) insulin aspart U-100 100 unit/mL See Rx Instructions subcut TID #15 07/07/22 (3 mL) subcutaneous pen (Novolog mL FlexPen U-100 Insulin aspart) insulin glargine 100 unit/mL (3 8 unit (0.08 mL) subcut QPM #15 mL 07/09/22 mL) subcutaneous pen (Lantus Solostar U-100 Insulin) pen needle, diabetic 32 gauge x #50 ea 07/09/22 (BD Ultra-Fine Nelli Pen Needle) lisinopril 5 mg tablet 10 mg PO DAILY #90 tabs 08/13/22 flash glucose scanning reader #1 ea 08/14/22 (FreeSporterpilot Rusty 2 [place]) Allergies Allergy/AdvReac Type Severity Reaction Status Date / Time baclofen AdvReac Severe Confusion Verified 08/16/22 12:58 Review of Systems Review of Systems: Yes all other systems are reviewed and are negative Constitutional: Constitutional: Reports as per [facility] Past Medical History Attestation statement: The following information was validated with the patient. Source: old records reviewed Medical History (Updated 05/19/22 @ 15:12 by Lor Zelaya MD) Anemia Aortic stenosis CHF (congestive heart failure) Congestive heart failure COPD (chronic obstructive pulmonary disease) CVA (cerebral vascular accident) End stage renal disease ESRD on dialysis GI bleed Hypercholesterolemia Hypertension Hypertensive cardiovascular disease Hypothyroid Insomnia SLOAN (obstructive sleep apnea) Right hip pain Tracheostomy in place Type 2 diabetes mellitus with hyperglycemia Vocal cord paralysis Surgical History History of colonoscopy History of esophagogastroduodenoscopy (EGD) History of total hysterectomy History of tracheostomy Family History Family History Mother Chronic kidney disease CAD (coronary artery disease) Renal failure Hypertension Father No problems noted. Sister Thyroid cancer Brother No problems noted. Daughter No problems noted. Daughter No problems noted. 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 Cognitive needs: Yes (walker) Hearing needs: No Vision needs: Yes (Glasses) Physical Exam ED Vital Signs: Vital Signs - 24 hr 08/16/22 12:58 Temperature 97.2 F Pulse Rate 79 Respiratory Rate 36 H Blood Pressure 177/90 H Pulse Oximetry 90 L Oxygen Delivery Method Room Air BMI result Body Mass Index 24.0 Const General: cooperative, healthy appearing and no acute distress Orientation/consciousness: patient oriented x3 Limitations: no limitations HENMT Head: Yes normal to inspection and Yes atraumatic Ears: hearing grossly normal bilaterally General nose exam: Normal external nose present Face and sinus: Yes normal facial exam Eyes General: appearance normal, both eyes and all related structures EOM: EOMs intact bilaterally Neck Neck: Yes normal visual inspection and Yes no meningeal signs Resp Effort & Inspection: normal respiratory effort and no respiratory distress Auscultation: clear to auscultation bilaterally Cardio Rate: regular rate Heart sounds: S1 normal heart sound present and S2 normal heart sound present GI Inspection: Yes normal to inspection Palpation (GI): Soft to palpation, nontender, no guarding and not rigid General: Yes no CVA tenderness Back/Spine/Pelvis Back: no CVA tenderness Skin Rashes: no rashes Wounds: no wounds Neuro General: patient oriented x3, tone normal and no meningeal signs Gait exam (Neuro): Normal gait present Extrem General: Yes normal to inspection Course Course Course Narrative: RME: 62 yold female with a trachea presents to the ED for SOB. patient recent discharge from [facility] this past wednesday for two heart attacks and had a stent placed. patient 90% 02. patient brought immediatley to room 9 in the ED> Medical Decision Making Medical Decision Making MDM Narrative: Please refer to course for remaining clinical decision making, interpretation of labs/imaging results, and discussions with consultants and/or family members. Differential Diagnosis Differential Diagnoses: The differential diagnosis associated with the presentation includes As above Admission/Observation Consideration of admission/observation: Escalation of care including admission/observation considered Lab Data MDM Lab Attestation statement: I reviewed the patient's lab results. 08/16/22 14:09 Radiology Impression Discussion of test interpretation with radiology: I have reviewed the radiologist's reading. External Record Review External record reviewed: Inpatient record, Office record, Outpatient record, Prior outpatient labs, Prior outpatient radiology, Primary care record and Outside ED record Tests considered The following testing was considered but not selected: As above Discharge Plan Discharge Prescriptions: No Action (DME) pen needle, diabetic [Comfort EZ Pen Northrop] 31 gauge x 5/16 needle See Rx Instructions .Route Qty: 100 5RF Rx Instructions: uses 4X/day (DME) pen needle, diabetic [BD Ultra-Fine Mini Pen Needle] 31 gauge x 3/16 needle See Rx Instructions .ROUTE .MEDSUPPLY Qty: 100 11RF Rx Instructions: As directed (DME) Hospital bed See Rx Instructions .Route .MEDSUPPLY Qty: 1 0RF Rx Instructions: As directed (DME) Shower Chair See Rx Instructions .Route .MEDSUPPLY Qty: 1 0RF Rx Instructions: As directed levalbuterol HCl 1.25 mg/3 mL solution for nebulization 1.25 mg inhalation BID Qty: 540 0RF lidocaine [Lidoderm] 5 % adhesive patch,medicated 1 patch topical DAILY Qty: 15 0RF Rx Instructions: leave on most painful area for up to 12 hrs budesonide 0.25 mg/2 mL suspension for nebulization 0.25 mg inhalation BID Qty: 360 2RF amlodipine 5 mg tablet 10 mg PO DAILY Qty: 90 0RF Protocol: Hold for SBP< HOLD for SBP < : 90 insulin glargine [Lantus Solostar U-100 Insulin] 100 unit/mL (3 mL) insulin pen 8 unit subcut QPM Qty: 15 6RF (DME) pen needle, diabetic [BD Ultra-Fine Nelli Pen Needle] 32 gauge x 5/32 needle See Rx Instructions .Route Qty: 50 5RF Rx Instructions: As directed lisinopril 5 mg tablet 10 mg PO DAILY Qty: 90 0RF (DME) FreeStyle Rusty 2 [place] Misc See Rx Instructions .Route Qty: 1 0RF Rx Instructions: As directed labetalol 300 mg tablet 300 mg PO BID sevelamer carbonate 800 mg tablet 800 mg PO TID levothyroxine 75 mcg tablet 75 mcg PO DAILY@0600 ([facility] [place]) FreeStyle Lite Strips Strip See Rx Instructions .ROUTE .MEDSUPPLY Qty: 300 3RF Rx Instructions: As directed check the BS TID ([facility] [place]) FreeStyle Rusty 14 Day Sensor Kit See Rx Instructions .ROUTE .MEDSUPPLY Qty: 6 3RF Rx Instructions: As directed ([facility] [place]) AUTO PAP PS6-20 CM h20 humidified AIR See Rx Instructions .Route .MEDSUPPLY Qty: 1 0RF Rx Instructions: As directed gabapentin 100 mg capsule 100 mg PO DAILY albuterol sulfate 90 mcg/actuation HFA aerosol inhaler 2 inh inhalation Q6H PRN (Reason: shortness of breath or wheezing) 30 Days Qty: 18 12RF insulin aspart U-100 [Novolog FlexPen U-100 Insulin] 100 unit/mL (3 mL) insulin pen See Rx Instructions subcut TID Qty: 15 5RF Rx Instructions: 6-10 units subcutaneously 3 times a day; inject up to 30 units daily 100-150: 4U, 151-200: 6U >201: 8 U >300: 10U Baqsimi 3 mg/actuation spray,non-aerosol 3 mg intranasal ONCE Qty: 2 4RF latanoprost 0.005 % drops 1 drp ophthalmic (eye) QPM aspirin [Adult Aspirin Regimen] 81 mg tablet,delayed release (DR/EC) 81 mg PO DAILY
--- NOTE | 2022-08-16 13:27 | PC.NURSE ---
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
--- NOTE | 2022-08-16 14:00 | PC.NURSE ---
provider notified of the patients difficulty breathing
--- NOTE | 2022-08-16 14:30 | PC.NURSE ---
RT at bedside to place pt on vent, pts cannula was changed by RT pt placed on vent and deep suctioned.
--- NOTE | 2022-08-16 15:00 | ED.GENADULT ---
HPI - General Adult General Chief complaint: Dyspnea Stated complaint: Diff breathing Time Seen by Provider: 08/16/22 14:15 Source: patient, family, RN notes reviewed and old records reviewed History of Present Illness HPI narrative: 62-year-old female with a past medical history of anemia, aortic stenosis, CHF, COPD, CVA, ESRD on HD (M/W/F), HLD, HTN, hypothyroid, SLOAN, vocal cord paralysis s/p tracheostomy, CAD s/p TAVR and pacemaker placement at [facility], presenting to ED with daughter complaining of chest pain and increasing SOB/dyspnea since this morning. Her daughter patient increasingly agitated which is not her baseline, baseline not on oxygen. Patient was satting 80-90% on RA in triage with tachypnea/respiratory distress and diaphoresis. Related Data Home Medications Medication Instructions Recorded Confirmed labetalol 300 mg tablet 300 mg PO BID 11/04/20 07/07/22 sevelamer carbonate 800 mg tablet 800 mg PO TID 12/19/20 07/07/22 gabapentin 100 mg capsule 100 mg PO DAILY 12/11/21 07/07/22 levothyroxine 75 mcg tablet 75 mcg PO DAILY@0600 02/04/22 07/07/22 aspirin 81 mg tablet,delayed 81 mg PO DAILY 05/19/22 07/07/22 release (Adult Aspirin Regimen) latanoprost 0.005 % eye drops 1 drp ophthalmic (eye) QPM 05/19/22 07/07/22 Previous Rx's Medication Instructions Recorded blood sugar diagnostic (FreeStyle #300 ea 12/10/20 Lite Strips) albuterol sulfate 90 mcg/actuation 2 inh inhalation Q6H PRN shortness 12/12/20 aerosol inhaler of breath or wheezing 30 days #18 grams AUTO PAP PS6-20 CM h20 humidified #1 ea 01/03/21 AIR pen needle, diabetic 31 gauge x #100 ea 09/23/2106/30 (Comfort EZ Pen Qulin) flash glucose sensor (FreeStyle #6 kits 09/30/21 Rusty 14 Day Sensor kit) pen needle, diabetic 31 gauge x #100 ea 12/10/2104/30 (BD Ultra-Fine Mini Pen Needle) Hospital bed #1 ea 01/23/22 Shower Chair #1 ea 01/23/22 levalbuterol HCl 1.25 mg/3 mL 1.25 mg (3 mL) inhalation BID #540 02/27/22 solution for nebulization mL lidocaine 5 % topical patch 1 patch topical DAILY #15 ea 06/02/22 (Lidoderm) amlodipine 5 mg tablet 10 mg PO DAILY #90 tabs 07/06/22 budesonide 0.25 mg/2 mL suspension 0.25 mg (2 mL) inhalation BID #360 07/06/22 for nebulization mL glucagon 3 mg/actuation nasal 3 mg intranasal ONCE #2 ea 07/07/22 spray (Baqsimi) insulin aspart U-100 100 unit/mL See Rx Instructions subcut TID #15 07/07/22 (3 mL) subcutaneous pen (Novolog mL FlexPen U-100 Insulin aspart) insulin glargine 100 unit/mL (3 8 unit (0.08 mL) subcut QPM #15 mL 07/09/22 mL) subcutaneous pen (Lantus Solostar U-100 Insulin) pen needle, diabetic 32 gauge x #50 ea 07/09/22 5/32 (BD Ultra-Fine Nelli Pen Needle) lisinopril 5 mg tablet 10 mg PO DAILY #90 tabs 08/13/22 flash glucose scanning reader #1 ea 08/14/22 (FreeStyle Rusty 2 [place]) Allergies Allergy/AdvReac Type Severity Reaction Status Date / Time baclofen AdvReac Severe Confusion Verified 08/16/22 12:58 Review of Systems Review of Systems: Constitutional: No Fever, No Chills Cardiovascular: + Chest Pain, + SOB, No Dyspnea on Exertion, No Orthopnea, No Edema, No Palpitations Respiratory: No Cough, No Sputum, + Dyspnea Gastrointestinal: No Nausea, No Vomiting, No Abdominal pain Musculoskeletal: No joint pain Skin: No Skin Lesions, No rash Neuro: +agitated Yes all other systems are reviewed and are negative Constitutional: Constitutional: Reports as per [facility] Past Medical History Attestation statement: The following information was validated with the patient. Source: old records reviewed Medical History Anemia Aortic stenosis CHF (congestive heart failure) Congestive heart failure COPD (chronic obstructive pulmonary disease) CVA (cerebral vascular accident) End stage renal disease ESRD on dialysis GI bleed Hypercholesterolemia Hypertension Hypertensive cardiovascular disease Hypothyroid Insomnia SLOAN (obstructive sleep apnea) Right hip pain Tracheostomy in place Type 2 diabetes mellitus with hyperglycemia Vocal cord paralysis Surgical History History of colonoscopy History of esophagogastroduodenoscopy (EGD) History of total hysterectomy History of tracheostomy Family History Family History Mother Chronic kidney disease CAD (coronary artery disease) Renal failure Hypertension Father No problems noted. Sister Thyroid cancer Brother No problems noted. Daughter No problems noted. Daughter No problems noted. 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 Cognitive needs: Yes (walker) Hearing needs: No Vision needs: Yes (Glasses) Physical Exam ED Vital Signs: Vital Signs - 24 hr 08/16/22 12:58 08/16/22 15:00 08/16/22 14:40 Temperature 97.2 F Pulse Rate 79 71 Respiratory Rate 36 H 14 Blood Pressure 177/90 H 183/87 H Pulse Oximetry 90 L 100 73 L Oxygen Delivery Method Room Air Mechanical Ventilation Humidified O2 Trach Collar Oxygen Flow Rate 9 Fraction of Inspired Oxygen 08/16/22 15:24 08/16/22 16:00 Temperature 99.4 F Pulse Rate 55 Respiratory Rate 16 Blood Pressure 169/71 H Pulse Oximetry 100 Oxygen Delivery Method Mechanical Ventilation Oxygen Flow Rate 90 Fraction of Inspired Oxygen 90 BMI result Body Mass Index 24.0 Const Other: Agitated General: acute distress respiratory HENMT Head: Yes normal to inspection and Yes atraumatic Ears: hearing grossly normal bilaterally General nose exam: Normal external nose present Face and sinus: Yes normal facial exam Eyes General: appearance normal, both eyes and all related structures EOM: EOMs intact bilaterally Neck Neck: Yes normal visual inspection and Yes no meningeal signs Resp Effort & Inspection: labored, respiratory distress and tachypneic Auscultation: rhonchi throughout Cardio Rate: regular rate Heart sounds: S1 normal heart sound present and S2 normal heart sound present GI Inspection: Yes normal to inspection Palpation (GI): Soft to palpation, nontender, no guarding and not rigid Skin Other: RLE as noted above. Open wound and surrounding erythema. No fluctuance/induration. No warmth. No crepitus Rashes: no rashes Neuro General: tone normal and no meningeal signs Course Course Course Narrative: [place] [facility] down, receiving paper readings -- cardiomegaly with bilateral disease. ?Pulmonary edema of cardiogenic or noncardiogenic etiology -1620--mild leukocytosis of 12.3. ABG with pH of 7.30, HCO3 20 -lactic acidosis of 3.3. Ammonia 40. COVID/flu/RSV negative -mild hyperkalemia to 5.3. Acute on chronic CKD. Anion gap of 31. Troponin 78.3 > will obtain 3 hour repeat >> case discussed with student success counselor, Dr. Winn and patient accepted to ICU Medications Administered Discontinued Medications Generic Name Dose Route Start Last Admin Trade Name Freq PRN Reason Stop Dose Admin Cefepime HCl 1 gm/ Sodium 50 mls @ 100 mls/hr 08/16/22 14:29 08/16/22 17:28 Chloride IV 08/16/22 14:58 Infused ONCE ONE Infusion Morphine Sulfate 2 mg 08/16/22 15:03 08/16/22 15:23 Morphine Sulfate 2 Mg/Ml Cartridge IVPUSH 08/16/22 15:04 2 mg ONCE ONE Administration Protocol Procedures Procedure Narrative Procedure Narrative: Tracheostomy to change from uncuffed to cuffed tube for ventilator community program assistant: The patient has a tracheostomy which was done in January of 2022. The patient was in acute respiratory distress therefore she needed tracheostomy changed from an uncuffed to a cuffed tube. Respiratory therapy was at the bedside with me. The patient's old tracheostomy tube was removed. A [employer] adult flexible tracheostomy cuffed tube ([id number]) 8.5 mm internal diameter, 12.2 mm outer diameter tube was used. I inserted this stylet into the endotracheal tube, lubricated the tube and the new endotracheal tube was easily inserted by me without any difficulty. The cuff was inflated with 10 cc of air. The stylet was removed. The patient was then placed on a ventilator with the following settings: AC, respiratory rate 16, tidal volume 350, FiO2 100% . Respiratory therapy also suction the patient through the new endotracheal tube and the patient had bloody, thick sputum Medical Decision Making Medical Decision Making MDM Narrative: 62-year-old female with a past medical history of anemia, aortic stenosis, CHF, COPD, CVA, ESRD on HD (M/W/F), HLD, HTN, hypothyroid, SLOAN, vocal cord paralysis s/p tracheostomy, CAD s/p TAVR and pacemaker placement at [facility], presenting to ED with daughter complaining of chest pain and increasing SOB/dyspnea since this morning. On exam patient tachypneic, in respiratory distress with labored breathing and diaphoresis, unable to obtain reliable O2 sat, diffuse rhonchi noted. Agitated/pulling at lines. RLE wound as noted above. Concern for ?Aspiration/PNA vs CHF vs COPD vs ACS & hypercapnia causing AMS. Lower suspicion for dissection or necrotizing fasciitis Case discussed with Dr. Alas who is at bedside, patient placed on ventilator > now appears more comfortable, satting 100%, CP and agitation resolved Plan: EKG, labs, CXR, lactic/blood cultures, empiric IV antibiotics, admission Obtained records from [facility], patient presented to the ED with hypoxic respiratory failure on 07/13 white into cardiac arrest x2, Clarita obtained, was initially admitted to the ICU had TAVR on 07/23 and pacemaker placement for complete AV block on 09/23. Course is complicated by right benítez wound and cellulitis. Biopsies were obtained of RLE wounds. Patient was referred to wound care Please refer to course for remaining clinical decision making, interpretation of labs/imaging results, and discussions with consultants and/or family members. Differential Diagnosis Differential Diagnoses: The differential diagnosis associated with the presentation includes As above Admission/Observation Consideration of admission/observation: Escalation of care including admission/observation considered Consult Healthcare Provider Management of the patient was discussed with: Hospitalist ([employer] Dr. Winn) Lab Data [facility] Lab Attestation statement: I reviewed the patient's lab results. 08/16/22 14:09 Labs: Lab Results 08/16/22 08/16/22 08/16/22 Range/Units 14:08 14:08 14:09 WBC 12.3 H (4.8-10.8) X10*3/uL RBC 4.50 (4.20-5.50) X10*6/uL Hgb 13.0 (12.0-16.0) g/dl Hct 42.1 (37.0-47.0) % MCV 93.6 (80.0-98.0) fL MCH 28.9 (27.0-33.0) pg MCHC 30.9 L (31.0-35.0) g/dl RDW 24.0 H (11.0-16.0) % Plt Count 283 (160-400) X10*3/uL MPV 11.7 (9.4-12.3) fL Immature Gran % (Auto) 0.5 H (0.0-0.4) % Neut % (Auto) 88.8 H (45-73) % Lymph % (Auto) 6.4 L (20-40) % Mclean % (Auto) 3.7 (2-11) % Eos % (Auto) 0.1 (0-4) % Baso % (Auto) 0.5 (0-2) % Lymph # (Auto) 0.8 L (1.2-4.9) X10*3/uL Mclean # (Auto) 0.5 (0.1-1.2) X10*3/uL Eos # (Auto) 0.0 (0.0-0.4) X10*3/uL Baso # (Auto) 0.1 (0.0-0.2) X10*3/uL Abs Immat Gran (auto) 0.06 H (0.00-0.03) X10*3/uL Absolute Neuts (auto) 10.9 H (2.0-8.3) x10*3/uL Absolute Nucleated RBC 0.050 H (0.0-0.012) X10*3/uL Nucleated RBC % (auto) 0.4 H (0.0-0.2) /100WBC PT 13.5 H (10.0-13.1) SEC INR 1.2 H (0.9-1.1) APTT 37.4 H (26.0-36.4) SEC VBG pH (7.32-7.43) VBG pCO2 mmHg VBG pO2 mmHg VBG HCO3 (22-26) mmol/L VBG O2 Saturation % VBG Base Excess mmol/L Sodium (135-145) mmol/L Potassium (3.3-5.1) mmol/L Chloride (96-108) mmol/L Carbon Dioxide (22-29) mmol/L Anion Gap (12-20) BUN (9-16) mg/dL Creatinine (0.5-1.4) mg/dL Estim Creat Clear Calc Estimated GFR Random Glucose (60-115) mg/dL Lactic Acid (0.5-2.0) mmol/L Calcium (8.4-10.2) mg/dL Magnesium (1.6-2.6) mg/dL Total Bilirubin (0.0-1.0) mg/dL AST (5-31) U/L ALT (0-31) U/L Alkaline Phosphatase (39-117) U/L Ammonia (13-55) umol/L Troponin I High Sens (<3.5-17.0) ng/L B-Natriuretic Peptide (<100) pg/mL Total Protein (6.5-8.0) g/dL Albumin (3.5-5.0) g/dL Beta-Hydroxybutyrate (0.02-0.27) mmol/L Influenza Type A (PCR) NEGATIVE (Negative) Influenza Type B (PCR) NEGATIVE (Negative) RSV RNA Qual (PCR) NEGATIVE (Negative) SARS-CoV-2 RNA (RT-PCR) NEGATIVE (Negative) 08/16/22 08/16/22 08/16/22 Range/Units 15:41 15:41 15:41 WBC (4.8-10.8) X10*3/uL RBC (4.20-5.50) X10*6/uL Hgb (12.0-16.0) g/dl Hct (37.0-47.0) % MCV (80.0-98.0) fL MCH (27.0-33.0) pg MCHC (31.0-35.0) g/dl RDW (11.0-16.0) % Plt Count (160-400) X10*3/uL MPV (9.4-12.3) fL Immature Gran % (Auto) (0.0-0.4) % Neut % (Auto) (45-73) % Lymph % (Auto) (20-40) % Mclean % (Auto) (2-11) % Eos % (Auto) (0-4) % Baso % (Auto) (0-2) % Lymph # (Auto) (1.2-4.9) X10*3/uL Mclean # (Auto) (0.1-1.2) X10*3/uL Eos # (Auto) (0.0-0.4) X10*3/uL Baso # (Auto) (0.0-0.2) X10*3/uL Abs Immat Gran (auto) (0.00-0.03) X10*3/uL Absolute Neuts (auto) (2.0-8.3) x10*3/uL Absolute Nucleated RBC (0.0-0.012) X10*3/uL Nucleated RBC % (auto) (0.0-0.2) /100WBC PT (10.0-13.1) SEC INR (0.9-1.1) APTT (26.0-36.4) SEC VBG pH (7.32-7.43) VBG pCO2 mmHg VBG pO2 mmHg VBG HCO3 (22-26) mmol/L VBG O2 Saturation % VBG Base Excess mmol/L Sodium 141 (135-145) mmol/L Potassium 5.3 H (3.3-5.1) mmol/L Chloride 96 (96-108) mmol/L Carbon Dioxide 19 L (22-29) mmol/L Anion Gap 31 H (12-20) BUN 51 H (9-16) mg/dL Creatinine 6.28 H* (0.5-1.4) mg/dL Estim Creat Clear Calc 8.1 Estimated GFR 7 Random Glucose 271 H (60-115) mg/dL Lactic Acid (0.5-2.0) mmol/L Calcium 9.4 (8.4-10.2) mg/dL Magnesium 2.2 (1.6-2.6) mg/dL Total Bilirubin 1.0 (0.0-1.0) mg/dL AST 31 (5-31) U/L ALT 7 (0-31) U/L Alkaline Phosphatase 128 H (39-117) U/L Ammonia (13-55) umol/L Troponin I High Sens 78.3 H* D (<3.5-17.0) ng/L B-Natriuretic Peptide 00070 H (<100) pg/mL Total Protein 7.3 (6.5-8.0) g/dL Albumin 3.5 (3.5-5.0) g/dL Beta-Hydroxybutyrate (0.02-0.27) mmol/L Influenza Type A (PCR) (Negative) Influenza Type B (PCR) (Negative) RSV RNA Qual (PCR) (Negative) SARS-CoV-2 RNA (RT-PCR) (Negative) 08/16/22 08/16/22 08/16/22 Range/Units 15:41 15:41 15:41 WBC (4.8-10.8) X10*3/uL RBC (4.20-5.50) X10*6/uL Hgb (12.0-16.0) g/dl Hct (37.0-47.0) % MCV (80.0-98.0) fL MCH (27.0-33.0) pg MCHC (31.0-35.0) g/dl RDW (11.0-16.0) % Plt Count (160-400) X10*3/uL MPV (9.4-12.3) fL Immature Gran % (Auto) (0.0-0.4) % Neut % (Auto) (45-73) % Lymph % (Auto) (20-40) % Mclean % (Auto) (2-11) % Eos % (Auto) (0-4) % Baso % (Auto) (0-2) % Lymph # (Auto) (1.2-4.9) X10*3/uL Mclean # (Auto) (0.1-1.2) X10*3/uL Eos # (Auto) (0.0-0.4) X10*3/uL Baso # (Auto) (0.0-0.2) X10*3/uL Abs Immat Gran (auto) (0.00-0.03) X10*3/uL Absolute Neuts (auto) (2.0-8.3) x10*3/uL Absolute Nucleated RBC (0.0-0.012) X10*3/uL Nucleated RBC % (auto) (0.0-0.2) /100WBC PT (10.0-13.1) SEC INR (0.9-1.1) APTT (26.0-36.4) SEC VBG pH 7.30 L (7.32-7.43) VBG pCO2 40 mmHg VBG pO2 90 mmHg VBG HCO3 20 L (22-26) mmol/L VBG O2 Saturation 93.0 % VBG Base Excess -5.7 mmol/L Sodium (135-145) mmol/L Potassium (3.3-5.1) mmol/L Chloride (96-108) mmol/L Carbon Dioxide (22-29) mmol/L Anion Gap (12-20) BUN (9-16) mg/dL Creatinine (0.5-1.4) mg/dL Estim Creat Clear Calc Estimated GFR Random Glucose (60-115) mg/dL Lactic Acid 3.3 H* (0.5-2.0) mmol/L Calcium (8.4-10.2) mg/dL Magnesium (1.6-2.6) mg/dL Total Bilirubin (0.0-1.0) mg/dL AST (5-31) U/L ALT (0-31) U/L Alkaline Phosphatase (39-117) U/L Ammonia 40 (13-55) umol/L Troponin I High Sens (<3.5-17.0) ng/L B-Natriuretic Peptide (<100) pg/mL Total Protein (6.5-8.0) g/dL Albumin (3.5-5.0) g/dL Beta-Hydroxybutyrate (0.02-0.27) mmol/L Influenza Type A (PCR) (Negative) Influenza Type B (PCR) (Negative) RSV RNA Qual (PCR) (Negative) SARS-CoV-2 RNA (RT-PCR) (Negative) 08/16/22 Range/Units 15:41 WBC (4.8-10.8) X10*3/uL RBC (4.20-5.50) X10*6/uL Hgb (12.0-16.0) g/dl Hct (37.0-47.0) % MCV (80.0-98.0) fL MCH (27.0-33.0) pg MCHC (31.0-35.0) g/dl RDW (11.0-16.0) % Plt Count (160-400) X10*3/uL MPV (9.4-12.3) fL Immature Gran % (Auto) (0.0-0.4) % Neut % (Auto) (45-73) % Lymph % (Auto) (20-40) % Mclean % (Auto) (2-11) % Eos % (Auto) (0-4) % Baso % (Auto) (0-2) % Lymph # (Auto) (1.2-4.9) X10*3/uL Mclean # (Auto) (0.1-1.2) X10*3/uL Eos # (Auto) (0.0-0.4) X10*3/uL Baso # (Auto) (0.0-0.2) X10*3/uL Abs Immat Gran (auto) (0.00-0.03) X10*3/uL Absolute Neuts (auto) (2.0-8.3) x10*3/uL Absolute Nucleated RBC (0.0-0.012) X10*3/uL Nucleated RBC % (auto) (0.0-0.2) /100WBC PT (10.0-13.1) SEC INR (0.9-1.1) APTT (26.0-36.4) SEC VBG pH (7.32-7.43) VBG pCO2 mmHg VBG pO2 mmHg VBG HCO3 (22-26) mmol/L VBG O2 Saturation % VBG Base Excess mmol/L Sodium (135-145) mmol/L Potassium (3.3-5.1) mmol/L Chloride (96-108) mmol/L Carbon Dioxide (22-29) mmol/L Anion Gap (12-20) BUN (9-16) mg/dL Creatinine (0.5-1.4) mg/dL Estim Creat Clear Calc Estimated GFR Random Glucose (60-115) mg/dL Lactic Acid (0.5-2.0) mmol/L Calcium (8.4-10.2) mg/dL Magnesium (1.6-2.6) mg/dL Total Bilirubin (0.0-1.0) mg/dL AST (5-31) U/L ALT (0-31) U/L Alkaline Phosphatase (39-117) U/L Ammonia (13-55) umol/L Troponin I High Sens (<3.5-17.0) ng/L B-Natriuretic Peptide (<100) pg/mL Total Protein (6.5-8.0) g/dL Albumin (3.5-5.0) g/dL Beta-Hydroxybutyrate 0.32 H (0.02-0.27) mmol/L Influenza Type A (PCR) (Negative) Influenza Type B (PCR) (Negative) RSV RNA Qual (PCR) (Negative) SARS-CoV-2 RNA (RT-PCR) (Negative) Independent Interpretation I performed an independent interpretation of an: EKG (EKG ventricular paced rhythm at a rate of 87. QRS 174. QTC 563. No STEMI ) Radiology Impression Discussion of test interpretation with radiology: I have reviewed the radiologist's reading. Independent Historian Clinical information obtained from an independent historian. History obtained from or confirmed by: Other (Daughter) External Record Review External record reviewed: Inpatient record, Office record, Outpatient record, Prior outpatient labs, Prior outpatient radiology, Primary care record and Outside ED record Tests considered The following testing was considered but not selected: As above Prescription Management I considered prescription management with: Pain Medication and Antibiotic Chronic Conditions Patient?s care impacted by: Diabetes, Hypertension and Other Critical Care Time Critical Care Time Critical Care Time: Yes Total Critical Care Time: 45 Attestation: I have personally provided critical care time exclusive of time spent on separately billable procedures. Time includes review of lab data, radiology results, discussion with consultants, and monitoring for potential decompensation. Intervention performed as documented. Discharge Plan Discharge Clinical Impression: Acute on chronic respiratory failure with hypoxia, ESRD (end stage renal disease) on dialysis, Pulmonary edema Patient Disposition: Admitted As Inpatient
--- NOTE | 2022-08-16 15:09 | PC.NURSE ---
phlebotomy to be called for labs, pt difficult stick had been stuck multiple times to attempt labs and iv site, pt only has 1 arm which they can be performed on due to lt av fistula
--- NOTE | 2022-08-16 15:30 | PC.RT ---
pt arrived with difficulty breathing. upon examination pt had a 8.5 cuffless trach. pts trach was then switched out to an 8.5 cuffed trach by and then placed on a vent with settings as followed: A/C [phone] pt blair well at the moment. Md aware of current settings
--- NOTE | 2022-08-16 16:09 | PC.NURSE ---
RT aware pt needs ABG, they spoke with ED provider who told RT that it wasnt needing to be drawn at this time.
--- NOTE | 2022-08-16 16:10 | PC.NURSE ---
phlebotomy came to the floor and boogie labs, they only boogie one set of blood cultures which has delayed the administration of iv antibiotics, charge nurse notified of this and this nurse also attempted to call phlebotomy with no answer, charge is attempting to call as well.
--- NOTE | 2022-08-16 17:04 | PC.NURSE ---
phlebotomy called to draw additional labs
--- NOTE | 2022-08-16 17:19 | PC.NURSE ---
report called to ICU, per ICU nurse she wishes to start the insulin drip herself as patient currently only has 1 iv site.
--- NOTE | 2022-08-16 17:55 | PC.NURSE ---
RT at bedside, attempting to go to ICU, pt needed repeat suctioning
--- NOTE | 2022-08-16 18:08 | PHA.MEDREC ---
Pharmacy Consult ? Medication Reconciliation Pharmacy has completed the medication reconciliation. Spoke to patient's daughter and patient to confirm meds. Patient's daughter unsure of Velphoro, filled in May for 90 day supply. Confirmed via claim history. Patient's daughter could confirm most meds and stated that the patient was recently discharged from [facility] last wednesday (08/12/22). Called [facility] pharmacy and spoke to pharmacist to figure out discharge meds, to which they stated patient was taking aspirin 81mg as well. Called patient's [facility] pharmacy and per pharmacy Patient takes amlodipine 10mg daily. Per patient's daughter, patient was recently told to stop taking lisinopril and labetalol, as well as furosemide.
[2022-08-16] MEDS: Insulin Regular/NS 100 UNIT/100 ML PLAST..BAG IVCONT (18:09)
[2022-08-16] MEDS: Heparin Sodium,Porcine 5,000 UNIT/ML VIAL 5000 UNIT SUBCUT (18:09)
--- NOTE | 2022-08-16 19:57 | PM.CCHP ---
History of Present Illness Date of Service: 08/16/22 Attending physician on admission: Bradley Winn Chief Complaint: Acute respiratory failure Ms. Olmstead is a 62-year-old? [id number]-[id number]-[id number] female with a history anemia, aortic stenosis, HF with preserved EF, COPD, CVA, ESRD on HD (M/W/F), HLD, HTN, hypothyroid, SLOAN, vocal cord paralysis s/p tracheostomy, CAD s/p TAVR and pacemaker placement at [facility] on 07/23/2022 who presented to the ER with complaint of chest pain, increasing shortness of breath/dyspnea and increasing agitation since this morning. On arrival to the? emergency room,?her blood pressure was 177/90, heart rate 79,Temp 97.2?, SpO2 90% on to room air.? Laboratory data significant for WBC 12.3, potassium 5.3, CO2 19, BUN 51, creatinine 6.28, glucose 271, lactic acid 3.3, troponin 78.3, BNP 21961, beta hydroxybutyrate 0.32.? VBG showed? pH 7.30, pCO2 40, PO2 90, HC03 20. The patient is anuric. Imaging: [facility] down, paper readings -- cardiomegaly with bilateral disease. ?Pulmonary edema of cardiogenic or noncardiogenic etiology ED COURSE: Tracheostomy was changed from an uncuffed to a Shiley adult flexible tracheostomy cuffed tube ([id number]) 8.5 mm internal diameter, 12.2 mm outer diameter tube.? She was put on a ventilator with AC settings.? She was given 2 mg of morphine and treated empirically with cefepime. Review of Systems Constitutional: Constitutional: Reports as per HPI Cardiovascular: Cardiovascular: Reports chest pain and Reports dyspnea Respiratory: Respiratory: Reports dyspnea Integumentary/Breasts: Skin/Breast: Reports wounds (RLE) Neurologic: Reports system reviewed and no additional complaints, except as documented [facility] Past Medical History Medical History Anemia Aortic stenosis CHF (congestive heart failure) Congestive heart failure COPD (chronic obstructive pulmonary disease) CVA (cerebral vascular accident) End stage renal disease ESRD on dialysis GI bleed Hypercholesterolemia Hypertension Hypertensive cardiovascular disease Hypothyroid Insomnia SLOAN (obstructive sleep apnea) Right hip pain Tracheostomy in place Type 2 diabetes mellitus with hyperglycemia Vocal cord paralysis Family History Family History Mother Chronic kidney disease CAD (coronary artery disease) Renal failure Hypertension Father No problems noted. Sister Thyroid cancer Brother No problems noted. Daughter No problems noted. Daughter No problems noted. Surgical History Surgical History History of colonoscopy History of esophagogastroduodenoscopy (EGD) History of total hysterectomy History of tracheostomy Social History Social History Household Members: Spouse Housing: Apartment Do you presently have visiting nurse or other home services: Yes ([facility]) Alcohol intake: never Patient Tobacco Use Status: Never used Tobacco Smoked in Last 30 Days: No e-Cigarette/Vaping Use: Never Used Second Hand Smoke Exposure: No Use of substances other than those prescribed or required for medical reasons: No Have you been hit, kicked, punched, or otherwise hurt by someone within the past year? If so, by whom?: No Do you feel safe in your current relationship?: Yes Is there a partner from a previous relationship who is making you feel unsafe now?: No Are you made to feel afraid or neglected: No Spiritual Healthcare Practices: none per family member Jewish Healthcare Practices: Moravian Cultural Healthcare Practices: none per family member Advance Directives: Yes Advance Directives on File: Yes Advance Directives Date on File: 11/08/20 Do you have thoughts of harming others: None Do you have a plan to hurt others: No Plan Recently lost weight without trying: Yes How much weight loss: 2-13 pounds Patient : No : No Poor oral hygiene: No service: No Current occupational status: disabled 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 Cognitive needs: Yes (walker) Hearing needs: No Vision needs: Yes (Glasses) Meds Allergies Allergy/AdvReac Type Severity Reaction Status Date / Time baclofen AdvReac Severe Confusion Verified 08/16/22 12:58 Active Medications: Current Medications Chlorhexidine Gluconate (Chlorhexidine Gluc Oral Rinse 15 Ml Mouthwash) 15 ml BUCCAL TID LISSETH Dextrose (Dextrose 50 % 25 Gm/50 Ml Syringe) 25 gm IVPUSH Q30M PRN PRN Reason: BG < 70 Heparin Sodium (Porcine) (Heparin Sodium,Porcine 5,000 Unit/Ml Vial) 5,000 unit SUBCUT Q8H [facility] Last Admin: 08/16/22 18:09 Dose: 5,000 unit Insulin Human Regular (Myxredlin) 100 unit in 100 mls @ 5 mls/hr IVCONT .Q20H [facility]; Protocol Last Admin: 08/16/22 18:09 Dose: 5 unit/hr, 5 mls/hr Omeprazole (Omeprazole 20 Mg/10 Ml Susp.Recon) 40 mg PO DAILY@0630 [facility] Home Medications Medication Instructions Recorded Confirmed Last Taken Type sevelamer carbonate 800 mg tablet 800 mg PO TID 12/19/20 08/16/22 08/16/22 08:00 History gabapentin 100 mg capsule 100 mg PO DAILY 12/11/21 08/16/22 08/16/22 08:00 History levothyroxine 75 mcg tablet 75 mcg PO DAILY@0600 02/04/22 08/16/22 08/16/22 06:00 History aspirin 81 mg tablet,delayed 81 mg PO DAILY 05/19/22 08/16/22 Unknown History release (Adult Aspirin Regimen) latanoprost 0.005 % eye drops 1 drp ophthalmic (eye) BEDTIME 05/19/22 08/16/22 08/15/22 History amlodipine 5 mg tablet 10 mg PO DAILY 08/16/22 08/16/22 08/16/22 08:00 History brimonidine 0.2 % eye drops 1 drp ophthalmic (eye) DAILY 08/16/22 08/16/22 08/16/22 08:00 History clopidogrel 75 mg tablet 75 mg PO DAILY 08/16/22 08/16/22 08/16/22 08:00 History glucagon 3 mg/actuation nasal 3 mg intranasal ONCE PRN 08/16/22 08/16/22 Unknown History spray (Baqsimi) Hypoglycemia hydromorphone 2 mg tablet 1 mg PO Q6H PRN severe pain 08/16/22 08/16/22 Unknown History insulin aspart U-100 100 unit/mL 1 sliding scale dose subcut TIDAC 08/16/22 08/16/22 08/16/22 08:00 History (3 mL) subcutaneous pen (Novolog FlexPen U-100 Insulin aspart) insulin glargine 100 unit/mL (3 6 unit subcut BEDTIME 08/16/22 08/16/22 08/15/22 History mL) subcutaneous pen (Lantus Solostar U-100 Insulin) lidocaine-prilocaine 2.5 %-2.5 % 1 appl topical MOWEFR PRN fistula 08/16/22 08/16/22 08/14/22 History topical cream pain sucroferric oxyhydroxide 500 mg 500 mg PO DAILY PRN snack 08/16/22 08/16/22 Unknown History chewable tablet (Velphoro) sucroferric oxyhydroxide 500 mg 500 mg PO TID 08/16/22 08/16/22 Unknown History chewable tablet (Velphoro) Physical Exam Vital Signs: Vital Signs: Last Vital Signs Temp 98.9 F 08/16/22 18:00 Pulse 53 08/16/22 19:00 Resp 19 08/16/22 19:00 BP 133/65 08/16/22 19:00 Pulse Ox 100 08/16/22 19:00 O2 Del Method Mechanical Ventil ation 08/16/22 19:00 O2 Flow Rate 90 08/16/22 16:58 FiO2 50 08/16/22 19:25 BMI result Body Mass Index 25.0 Const: General: cooperative, alert, awake, anxious and ill appearing Orientation/consciousness: patient oriented x3 HEENT: Head: Yes normocephalic and Yes atraumatic General nose exam: Normal external nose present (Nares patent, septum midline, sinuses nontender bilaterally.) Mouth: Normal oral and palatal mucosa present (No thrush, tongue in midline, mucosa moist.) Throat: Yes other (No erythema, no exudate.) Neck: Neck: Yes supple (no thyromegaly, trachea midline.) Carotids: normal carotid upstroke Resp: Auscultation: rhonchi (normal work of breathing, no accessory muscle use) Cardio: Jugular venous distension: no JVD Rate: regular rate Rhythm: regular rhythm Heart sounds: no gallops, no murmurs and no rubs Peripheral pulses: dorsalis pedis present bilateral 1+ GI: Palpation (GI): Soft to palpation (nondistended.) and nontender Skin: Wounds: wounds noted ulceration lower leg Neuro: General: patient oriented x3 Extrem: General: Yes full ROM and Yes other (right great toe dusky) Psych: Appearance: well kempt Affect: Anxious affect present Attitude: cooperative Results Labs 08/16/22 14:09 08/16/22 15:41 Labs: Laboratory Results - last 24 hr 08/16/22 08/16/22 08/16/22 14:08 14:08 14:09 MCV 93.6 MCH 28.9 MCHC 30.9 L RDW 24.0 H Plt Count 283 MPV 11.7 Immature Gran % (Auto) 0.5 H Neut % (Auto) 88.8 H Lymph % (Auto) 6.4 L Edgar % (Auto) 3.7 Eos % (Auto) 0.1 Baso % (Auto) 0.5 Lymph # (Auto) 0.8 L Edgar # (Auto) 0.5 Eos # (Auto) 0.0 Baso # (Auto) 0.1 Abs Immat Gran (auto) 0.06 H Absolute Neuts (auto) 10.9 H Absolute Nucleated RBC 0.050 H Nucleated RBC % (auto) 0.4 H PT 13.5 H INR 1.2 H APTT 37.4 H VBG pH VBG pCO2 VBG pO2 VBG HCO3 VBG O2 Saturation VBG Base Excess Anion Gap Estim Creat Clear Calc Estimated GFR POC Glucose Random Glucose Lactic Acid Lactic Acid F/U @ 2Hr Calcium Magnesium Total Bilirubin AST ALT Alkaline Phosphatase Ammonia Troponin I High Sens B-Natriuretic Peptide Total Protein Albumin Beta-Hydroxybutyrate Influenza Type A (PCR) NEGATIVE Influenza Type B (PCR) NEGATIVE RSV RNA Qual (PCR) NEGATIVE SARS-CoV-2 RNA (RT-PCR) NEGATIVE 08/16/22 08/16/22 08/16/22 15:41 15:41 15:41 MCV MCH MCHC RDW Plt Count MPV Immature Gran % (Auto) Neut % (Auto) Lymph % (Auto) Edgar % (Auto) Eos % (Auto) Baso % (Auto) Lymph # (Auto) Edgar # (Auto) Eos # (Auto) Baso # (Auto) Abs Immat Gran (auto) Absolute Neuts (auto) Absolute Nucleated RBC Nucleated RBC % (auto) PT INR APTT VBG pH VBG pCO2 VBG pO2 VBG HCO3 VBG O2 Saturation VBG Base Excess Anion Gap 31 H Estim Creat Clear Calc 8.1 Estimated GFR 7 POC Glucose Random Glucose 271 H Lactic Acid Lactic Acid F/U @ 2Hr Calcium 9.4 Magnesium 2.2 Total Bilirubin 1.0 AST 31 ALT 7 Alkaline Phosphatase 128 H Ammonia Troponin I High Sens 78.3 H* D B-Natriuretic Peptide 27365 H Total Protein 7.3 Albumin 3.5 Beta-Hydroxybutyrate Influenza Type A (PCR) Influenza Type B (PCR) RSV RNA Qual (PCR) SARS-CoV-2 RNA (RT-PCR) 08/16/22 08/16/22 08/16/22 15:41 15:41 15:41 MCV MCH MCHC RDW Plt Count MPV Immature Gran % (Auto) Neut % (Auto) Lymph % (Auto) Edgar % (Auto) Eos % (Auto) Baso % (Auto) Lymph # (Auto) Edgar # (Auto) Eos # (Auto) Baso # (Auto) Abs Immat Gran (auto) Absolute Neuts (auto) Absolute Nucleated RBC Nucleated RBC % (auto) PT INR APTT VBG pH 7.30 L VBG pCO2 40 VBG pO2 90 VBG HCO3 20 L VBG O2 Saturation 93.0 VBG Base Excess -5.7 Anion Gap Estim Creat Clear Calc Estimated GFR POC Glucose Random Glucose Lactic Acid 3.3 H* Lactic Acid F/U @ 2Hr Calcium Magnesium Total Bilirubin AST ALT Alkaline Phosphatase Ammonia 40 Troponin I High Sens B-Natriuretic Peptide Total Protein Albumin Beta-Hydroxybutyrate Influenza Type A (PCR) Influenza Type B (PCR) RSV RNA Qual (PCR) SARS-CoV-2 RNA (RT-PCR) 08/16/22 08/16/22 08/16/22 15:41 18:06 18:21 MCV MCH MCHC RDW Plt Count MPV Immature Gran % (Auto) Neut % (Auto) Lymph % (Auto) Edgar % (Auto) Eos % (Auto) Baso % (Auto) Lymph # (Auto) Edgar # (Auto) Eos # (Auto) Baso # (Auto) Abs Immat Gran (auto) Absolute Neuts (auto) Absolute Nucleated RBC Nucleated RBC % (auto) PT INR APTT VBG pH VBG pCO2 VBG pO2 VBG HCO3 VBG O2 Saturation VBG Base Excess Anion Gap Estim Creat Clear Calc Estimated GFR POC Glucose 206 H Random Glucose Lactic Acid Lactic Acid F/U @ 2Hr Calcium Magnesium Total Bilirubin AST ALT Alkaline Phosphatase Ammonia Troponin I High Sens 74.1 H* B-Natriuretic Peptide Total Protein Albumin Beta-Hydroxybutyrate 0.32 H Influenza Type A (PCR) Influenza Type B (PCR) RSV RNA Qual (PCR) SARS-CoV-2 RNA (RT-PCR) 08/16/22 08/16/22 18:21 19:03 MCV MCH MCHC RDW Plt Count MPV Immature Gran % (Auto) Neut % (Auto) Lymph % (Auto) Edgar % (Auto) Eos % (Auto) Baso % (Auto) Lymph # (Auto) Edgar # (Auto) Eos # (Auto) Baso # (Auto) Abs Immat Gran (auto) Absolute Neuts (auto) Absolute Nucleated RBC Nucleated RBC % (auto) PT INR APTT VBG pH VBG pCO2 VBG pO2 VBG HCO3 VBG O2 Saturation VBG Base Excess Anion Gap Estim Creat Clear Calc Estimated GFR POC Glucose 210 H Random Glucose Lactic Acid Lactic Acid F/U @ 2Hr 2.3 H* Calcium Magnesium Total Bilirubin AST ALT Alkaline Phosphatase Ammonia Troponin I High Sens B-Natriuretic Peptide Total Protein Albumin Beta-Hydroxybutyrate Influenza Type A (PCR) Influenza Type B (PCR) RSV RNA Qual (PCR) SARS-CoV-2 RNA (RT-PCR) ECG Attestation: I personally reviewed and interpreted this ECG as follows: (V-paced. HR 87) Prior ECG tracings: available for review (NSR w/R BBB (prior to pacemaker placement)) Assessment and Plan (1) Acute on chronic respiratory failure with hypoxia: Status: Acute (2) Pulmonary edema: Status: Acute (3) CHF exacerbation: Status: Acute (4) ESRD (end stage renal disease) on dialysis: Status: Acute (5) End stage renal disease: Status: Acute (6) DKA (diabetic ketoacidosis): Status: Acute (7) Type 2 diabetes mellitus with hyperglycemia: Qualifiers: Diabetes mellitus terminal operator insulin use: with senior living use Qualified Code(s): E11.65 - Type 2 diabetes mellitus with hyperglycemia; Z79.4 - long term acute care registered nurse (current) use of insulin Status: Acute (8) Tracheostomy in place: Status: Acute (9) Ulcer of right lower extremity: Status: Acute (10) Toe ulcer, right: Status: Acute Plan PLAN: 62-year-old female with a history anemia, aortic stenosis, HF with preserved EF, COPD, CVA, ESRD on HD (M/W/F), HLD, HTN, hypothyroid, SLOAN, vocal cord paralysis s/p tracheostomy, CAD s/p TAVR and pacemaker admitted with acute respiratory failure, acute heart failure, DKA.? Neuro:? no acute issues. Cardiac: ?CAD s/p TAVR and pacemaker. CHF. BNP 95995.? Pulmonary edema noted on x-ray. Trop initially 78.3, now trending down. ? Patient is currently undergoing HD. V-paced. Chest pain resolved.? Pulmonary:? Acute on chronic respiratory failure with hypoxia.? Pulmonary edema.? Currently maintained on ventilator AC settings.? Undergoing HD. Wean as tolerated. Renal:? ESRD on HD. BUN/creatinine 51/6.28.? Currently undergoing HD/ultrafiltration. Continue to check renal induces. Nephrology input appreciated. Endo: ???DKA.? Anion gap 31.? Beta hydroxybutyrate 0.32.? Insulin drip initiated.? Monitor electrolytes. GI: ? No acute issues. ID:? WBC 12.3.? Lactic 2.4.? Does not meet SIRS criteria. Patient does not appear septic at this time.? She does have a significant wound on her right lower leg.? Received cefepime in the ER.? Will add vanco for empiric coverage.? Blood cultures pending. Wound consult placed. Heme/Onc: ?No acute issues. Psych:? No acute issues. Prophylaxis:? Heparin Diet:? NPO Time Spent With Patient Time: Total time managing care of this patient today ____ minutes.
[2022-08-16] MEDS: Dextrose 50 % 25 GM/50 ML SYRINGE IVPUSH ×2 (21:05→22:16)
[2022-08-16] MEDS: Chlorhexidine Gluc Oral Rinse 15 ML MOUTHWASH BUCCAL (21:27)
[2022-08-17] VITALS (25 sets, daily range): BP systolic 119–182; BP diastolic 49–112; PULSE 52–92; RESP 12–38; TEMP 34–36.9; O2SAT 92–100; BMI 24.5
[2022-08-17] MEDS: Heparin Sodium,Porcine 5,000 UNIT/ML VIAL 5000 UNIT SUBCUT ×3 (00:40→17:13)
[2022-08-17] MEDS: Dextrose 50 % 25 GM/50 ML SYRINGE IVPUSH ×4 (00:40→05:41)
[2022-08-17 02:39] LABS: Glucose, Whole Blood 122 mg/dL (60-115)
[2022-08-17 03:39] LABS: Glucose, Whole Blood 94 mg/dL (60-115)
[2022-08-17 05:11] LABS: MANUAL DIFF FLAG NO; Venous Blood Gas Refer to POC result
[2022-08-17 05:15] LABS: Basophils Absolute Auto 0.1 X10*3/uL (0.0-0.2); Basophils Percent Auto 0.7 % (0-2); Eosinophils Absolute Auto 0.1 X10*3/uL (0.0-0.4); Eosinophils Percent Auto 0.8 % (0-4); Hematocrit 35.1 % (37.0-47.0); Hemoglobin 11.1 g/dl (12.0-16.0); Imm Gran Abs Auto 0.05 X10*3/uL (0.00-0.03); Imm Gran Pct Auto 0.4 % (0.0-0.4); Lymphocytes Absolute Auto 1.6 X10*3/uL (1.2-4.9); Lymphocytes Percent Auto 11.6 % (20-40); Mean Corpuscular HGB Conc 31.6 g/dl (31.0-35.0); Mean Corpuscular Hemoglobin 29.8 pg (27.0-33.0); Mean Corpuscular Volume 94.4 fL (80.0-98.0); Mean Platelet Volume 11.2 fL (9.4-12.3); Monocytes Absolute Auto 0.9 X10*3/uL (0.1-1.2); Monocytes Percent Auto 6.5 % (2-11); NRBC Pct Auto 0.3 /100WBC (0.0-0.2); Neutrophils Absolute Auto 11.2 x10*3/uL (2.0-8.3); Platelet Count 216 X10*3/uL (160-400); Red Blood Count 3.72 X10*6/uL (4.20-5.50); Red Cell Distribution Width 23.4 % (11.0-16.0)
[2022-08-17 05:35] LABS: Albumin Level 3.1 g/dL (3.5-5.0); Anion Gap 30 (12-20); Blood Urea Nitrogen 56 mg/dL (9-16); Calcium 9.1 mg/dL (8.4-10.2); Carbon Dioxide 17 mmol/L (22-29); Chloride 97 mmol/L (96-108); Creatinine Clr Calc Pharmacy 8.3; Estimated Glomerular Filt Rate 6; Glucose Random 111 mg/dL (60-115); Magnesium 2.2 mg/dL (1.6-2.6); Phosphorus 6.7 mg/dL (2.7-4.5); Potassium 4.7 mmol/L (3.3-5.1); Sodium 139 mmol/L (135-145)
[2022-08-17] MEDS: Chlorhexidine Gluc Oral Rinse 15 ML MOUTHWASH BUCCAL (07:47)
--- NOTE | 2022-08-17 08:41 | PM.CCPN ---
Subjective Subjective Date of Service: 08/17/22 Interval History: 62-year-old lady with underlying history ofSeizure disorder, COPD, CVA, congestive heart failure, aortic stenosis status post TAVR and pacemaker on 07/13/2022, diabetes mellitus with end-stage renal disease on hemodialysis Wednesday/Wednesday/Wednesday, obesity with obstructive sleep apnea, on nocturnal APAP, vocal cord paralysis status post tracheostomy , peripheral vascular disease with lower extremity ulceration followed by vascular surgery and [facility], admitted on 08/16/2022 with shortness of breath secondary to pulmonary edema requiring addition ultrafiltration session and initiation ventilatory support through tracheostomy , improved significantly after ultrafiltration. Further complicated by mild diabetic ketoacidosis insulin drip. Empirically covered with broad-spectrum antibiotics. Critical Care Time (minutes): 60 Physical Exam Vital Signs: Vital Signs: Last Vital Signs Temp 98.5 F 08/17/22 08:00 Pulse 53 08/17/22 08:00 Resp 14 08/17/22 08:00 BP 149/78 H 08/17/22 08:00 Pulse Ox 99 08/17/22 08:00 O2 Del Method Mechanical Ventil ation 08/17/22 08:00 O2 Flow Rate 90 08/16/22 16:58 FiO2 30 08/17/22 08:00 BMI result Body Mass Index 24.5 Const: General: no acute distress, alert and awake Nutritional Appearance: obese Eyes: Sclerae: sclerae normal EOM: EOMs intact bilaterally Neck: Neck: Yes no lymphadenopathy, Yes trachea midline, Yes supple and Yes tracheostomy present ( on tracheal collar) Resp: Effort & Inspection: normal respiratory effort and no respiratory distress Auscultation: crackles ( bilateral) Cardio: Rate: regular rate Rhythm: regular rhythm Heart sounds: no gallops, no murmurs and no rubs GI: Palpation (GI): Soft to palpation and Other GI palpation findings present ( Nontender) Auscultation: normal bowel sounds Extrem: Other: left leg with anterior ulceration General: No clubbing, No cyanosis and Yes edema ( 2+ bilateral) Objective Data Labs 08/17/22 04:59 08/17/22 04:59 Labs: Laboratory Results - last 24 hr 08/16/22 08/16/22 08/16/22 14:08 14:08 14:09 WBC 12.3 H RBC 4.50 Hgb 13.0 Hct 42.1 MCV 93.6 MCH 28.9 MCHC 30.9 L RDW 24.0 H Plt Count 283 MPV 11.7 Immature Gran % (Auto) 0.5 H Neut % (Auto) 88.8 H Lymph % (Auto) 6.4 L [place] % (Auto) 3.7 Eos % (Auto) 0.1 Baso % (Auto) 0.5 Lymph # (Auto) 0.8 L [place] # (Auto) 0.5 Eos # (Auto) 0.0 Baso # (Auto) 0.1 Abs Immat Gran (auto) 0.06 H Absolute Neuts (auto) 10.9 H Absolute Nucleated RBC 0.050 H Nucleated RBC % (auto) 0.4 H PT 13.5 H INR 1.2 H APTT 37.4 H VBG pH VBG pCO2 VBG pO2 VBG HCO3 VBG O2 Saturation VBG Base Excess Sodium Potassium Chloride Carbon Dioxide Anion Gap BUN Creatinine Estim Creat Clear Calc Estimated GFR POC Glucose Random Glucose Lactic Acid Lactic Acid F/U @ 2Hr Lactic Acid F/U @ 4Hr Calcium Phosphorus Magnesium Total Bilirubin AST ALT Alkaline Phosphatase Ammonia Troponin I High Sens B-Natriuretic Peptide Total Protein Albumin Beta-Hydroxybutyrate Influenza Type A (PCR) NEGATIVE Influenza Type B (PCR) NEGATIVE RSV RNA Qual (PCR) NEGATIVE SARS-CoV-2 RNA (RT-PCR) NEGATIVE 08/16/22 08/16/22 08/16/22 15:41 15:41 15:41 WBC RBC Hgb Hct MCV MCH MCHC RDW Plt Count MPV Immature Gran % (Auto) Neut % (Auto) Lymph % (Auto) [place] % (Auto) Eos % (Auto) Baso % (Auto) Lymph # (Auto) [place] # (Auto) Eos # (Auto) Baso # (Auto) Abs Immat Gran (auto) Absolute Neuts (auto) Absolute Nucleated RBC Nucleated RBC % (auto) PT INR APTT VBG pH VBG pCO2 VBG pO2 VBG HCO3 VBG O2 Saturation VBG Base Excess Sodium 141 Potassium 5.3 H Chloride 96 Carbon Dioxide 19 L Anion Gap 31 H BUN 51 H Creatinine 6.28 H* Estim Creat Clear Calc 8.1 Estimated GFR 7 POC Glucose Random Glucose 271 H Lactic Acid Lactic Acid F/U @ 2Hr Lactic Acid F/U @ 4Hr Calcium 9.4 Phosphorus Magnesium 2.2 Total Bilirubin 1.0 AST 31 ALT 7 Alkaline Phosphatase 128 H Ammonia Troponin I High Sens 78.3 H* D B-Natriuretic Peptide 18121 H Total Protein 7.3 Albumin 3.5 Beta-Hydroxybutyrate Influenza Type A (PCR) Influenza Type B (PCR) RSV RNA Qual (PCR) SARS-CoV-2 RNA (RT-PCR) 08/16/22 08/16/22 08/16/22 15:41 15:41 15:41 WBC RBC Hgb Hct MCV MCH MCHC RDW Plt Count MPV Immature Gran % (Auto) Neut % (Auto) Lymph % (Auto) [place] % (Auto) Eos % (Auto) Baso % (Auto) Lymph # (Auto) [place] # (Auto) Eos # (Auto) Baso # (Auto) Abs Immat Gran (auto) Absolute Neuts (auto) Absolute Nucleated RBC Nucleated RBC % (auto) PT INR APTT VBG pH 7.30 L VBG pCO2 40 VBG pO2 90 VBG HCO3 20 L VBG O2 Saturation 93.0 VBG Base Excess -5.7 Sodium Potassium Chloride Carbon Dioxide Anion Gap BUN Creatinine Estim Creat Clear Calc Estimated GFR POC Glucose Random Glucose Lactic Acid 3.3 H* Lactic Acid F/U @ 2Hr Lactic Acid F/U @ 4Hr Calcium Phosphorus Magnesium Total Bilirubin AST ALT Alkaline Phosphatase Ammonia 40 Troponin I High Sens B-Natriuretic Peptide Total Protein Albumin Beta-Hydroxybutyrate Influenza Type A (PCR) Influenza Type B (PCR) RSV RNA Qual (PCR) SARS-CoV-2 RNA (RT-PCR) 08/16/22 08/16/22 08/16/22 15:41 18:06 18:21 WBC RBC Hgb Hct MCV MCH MCHC RDW Plt Count MPV Immature Gran % (Auto) Neut % (Auto) Lymph % (Auto) [place] % (Auto) Eos % (Auto) Baso % (Auto) Lymph # (Auto) [place] # (Auto) Eos # (Auto) Baso # (Auto) Abs Immat Gran (auto) Absolute Neuts (auto) Absolute Nucleated RBC Nucleated RBC % (auto) PT INR APTT VBG pH VBG pCO2 VBG pO2 VBG HCO3 VBG O2 Saturation VBG Base Excess Sodium Potassium Chloride Carbon Dioxide Anion Gap BUN Creatinine Estim Creat Clear Calc Estimated GFR POC Glucose 206 H Random Glucose Lactic Acid Lactic Acid F/U @ 2Hr Lactic Acid F/U @ 4Hr Calcium Phosphorus Magnesium Total Bilirubin AST ALT Alkaline Phosphatase Ammonia Troponin I High Sens 74.1 H* B-Natriuretic Peptide Total Protein Albumin Beta-Hydroxybutyrate 0.32 H Influenza Type A (PCR) Influenza Type B (PCR) RSV RNA Qual (PCR) SARS-CoV-2 RNA (RT-PCR) 08/16/22 08/16/22 08/16/22 18:21 19:03 20:03 WBC RBC Hgb Hct MCV MCH MCHC RDW Plt Count MPV Immature Gran % (Auto) Neut % (Auto) Lymph % (Auto) [place] % (Auto) Eos % (Auto) Baso % (Auto) Lymph # (Auto) [place] # (Auto) Eos # (Auto) Baso # (Auto) Abs Immat Gran (auto) Absolute Neuts (auto) Absolute Nucleated RBC Nucleated RBC % (auto) PT INR APTT VBG pH VBG pCO2 VBG pO2 VBG HCO3 VBG O2 Saturation VBG Base Excess Sodium Potassium Chloride Carbon Dioxide Anion Gap BUN Creatinine Estim Creat Clear Calc Estimated GFR POC Glucose 210 H 110 Random Glucose Lactic Acid Lactic Acid F/U @ 2Hr 2.3 H* Lactic Acid F/U @ 4Hr Calcium Phosphorus Magnesium Total Bilirubin AST ALT Alkaline Phosphatase Ammonia Troponin I High Sens B-Natriuretic Peptide Total Protein Albumin Beta-Hydroxybutyrate Influenza Type A (PCR) Influenza Type B (PCR) RSV RNA Qual (PCR) SARS-CoV-2 RNA (RT-PCR) 08/16/22 08/16/22 08/16/22 21:01 21:01 21:02 WBC RBC Hgb Hct MCV MCH MCHC RDW Plt Count MPV Immature Gran % (Auto) Neut % (Auto) Lymph % (Auto) [place] % (Auto) Eos % (Auto) Baso % (Auto) Lymph # (Auto) [place] # (Auto) Eos # (Auto) Baso # (Auto) Abs Immat Gran (auto) Absolute Neuts (auto) Absolute Nucleated RBC Nucleated RBC % (auto) PT INR APTT VBG pH VBG pCO2 VBG pO2 VBG HCO3 VBG O2 Saturation VBG Base Excess Sodium 141 Potassium 4.6 Chloride 97 Carbon Dioxide 18 L Anion Gap 31 H BUN 53 H Creatinine 6.19 H* Estim Creat Clear Calc 8.8 Estimated GFR 7 POC Glucose 57 L* Random Glucose 63 Lactic Acid Lactic Acid F/U @ 2Hr Lactic Acid F/U @ 4Hr 2.4 H* Calcium 9.0 Phosphorus Magnesium Total Bilirubin AST ALT Alkaline Phosphatase Ammonia Troponin I High Sens B-Natriuretic Peptide Total Protein Albumin Beta-Hydroxybutyrate Influenza Type A (PCR) Influenza Type B (PCR) RSV RNA Qual (PCR) SARS-CoV-2 RNA (RT-PCR) 08/16/22 08/16/22 08/16/22 21:20 21:25 22:14 WBC RBC Hgb Hct MCV MCH MCHC RDW Plt Count MPV Immature Gran % (Auto) Neut % (Auto) Lymph % (Auto) [place] % (Auto) Eos % (Auto) Baso % (Auto) Lymph # (Auto) [place] # (Auto) Eos # (Auto) Baso # (Auto) Abs Immat Gran (auto) Absolute Neuts (auto) Absolute Nucleated RBC Nucleated RBC % (auto) PT INR APTT VBG pH 7.48 H VBG pCO2 26 VBG pO2 255 VBG HCO3 19 L VBG O2 Saturation 99.0 VBG Base Excess -2.4 Sodium Potassium Chloride Carbon Dioxide Anion Gap BUN Creatinine Estim Creat Clear Calc Estimated GFR POC Glucose 178 H 112 Random Glucose Lactic Acid Lactic Acid F/U @ 2Hr Lactic Acid F/U @ 4Hr Calcium Phosphorus Magnesium Total Bilirubin AST ALT Alkaline Phosphatase Ammonia Troponin I High Sens B-Natriuretic Peptide Total Protein Albumin Beta-Hydroxybutyrate Influenza Type A (PCR) Influenza Type B (PCR) RSV RNA Qual (PCR) SARS-CoV-2 RNA (RT-PCR) 08/16/22 08/17/22 08/17/22 23:29 00:37 01:31 WBC RBC Hgb Hct MCV MCH MCHC RDW Plt Count MPV Immature Gran % (Auto) Neut % (Auto) Lymph % (Auto) [place] % (Auto) Eos % (Auto) Baso % (Auto) Lymph # (Auto) [place] # (Auto) Eos # (Auto) Baso # (Auto) Abs Immat Gran (auto) Absolute Neuts (auto) Absolute Nucleated RBC Nucleated RBC % (auto) PT INR APTT VBG pH VBG pCO2 VBG pO2 VBG HCO3 VBG O2 Saturation VBG Base Excess Sodium Potassium Chloride Carbon Dioxide Anion Gap BUN Creatinine Estim Creat Clear Calc Estimated GFR POC Glucose 169 H 103 116 H Random Glucose Lactic Acid Lactic Acid F/U @ 2Hr Lactic Acid F/U @ 4Hr Calcium Phosphorus Magnesium Total Bilirubin AST ALT Alkaline Phosphatase Ammonia Troponin I High Sens B-Natriuretic Peptide Total Protein Albumin Beta-Hydroxybutyrate Influenza Type A (PCR) Influenza Type B (PCR) RSV RNA Qual (PCR) SARS-CoV-2 RNA (RT-PCR) 08/17/22 08/17/22 08/17/22 02:35 03:35 04:25 WBC RBC Hgb Hct MCV MCH MCHC RDW Plt Count MPV Immature Gran % (Auto) Neut % (Auto) Lymph % (Auto) [place] % (Auto) Eos % (Auto) Baso % (Auto) Lymph # (Auto) [place] # (Auto) Eos # (Auto) Baso # (Auto) Abs Immat Gran (auto) Absolute Neuts (auto) Absolute Nucleated RBC Nucleated RBC % (auto) PT INR APTT VBG pH VBG pCO2 VBG pO2 VBG HCO3 VBG O2 Saturation VBG Base Excess Sodium Potassium Chloride Carbon Dioxide Anion Gap BUN Creatinine Estim Creat Clear Calc Estimated GFR POC Glucose 122 H 94 146 H Random Glucose Lactic Acid Lactic Acid F/U @ 2Hr Lactic Acid F/U @ 4Hr Calcium Phosphorus Magnesium Total Bilirubin AST ALT Alkaline Phosphatase Ammonia Troponin I High Sens B-Natriuretic Peptide Total Protein Albumin Beta-Hydroxybutyrate Influenza Type A (PCR) Influenza Type B (PCR) RSV RNA Qual (PCR) SARS-CoV-2 RNA (RT-PCR) 08/17/22 08/17/22 08/17/22 04:59 04:59 04:59 WBC 14.0 H RBC 3.72 L Hgb 11.1 L Hct 35.1 L MCV 94.4 MCH 29.8 MCHC 31.6 RDW 23.4 H Plt Count 216 MPV 11.2 Immature Gran % (Auto) 0.4 Neut % (Auto) 80.0 H Lymph % (Auto) 11.6 L [place] % (Auto) 6.5 Eos % (Auto) 0.8 Baso % (Auto) 0.7 Lymph # (Auto) 1.6 [place] # (Auto) 0.9 Eos # (Auto) 0.1 Baso # (Auto) 0.1 Abs Immat Gran (auto) 0.05 H Absolute Neuts (auto) 11.2 H Absolute Nucleated RBC 0.040 H Nucleated RBC % (auto) 0.3 H PT INR APTT VBG pH 7.48 H VBG pCO2 27 VBG pO2 159 VBG HCO3 20 L VBG O2 Saturation 99.0 VBG Base Excess 0.1 Sodium 139 Potassium 4.7 Chloride 97 Carbon Dioxide 17 L Anion Gap 30 H BUN 56 H Creatinine 6.62 H* Estim Creat Clear Calc 8.3 Estimated GFR 6 POC Glucose Random Glucose 111 Lactic Acid Lactic Acid F/U @ 2Hr Lactic Acid F/U @ 4Hr Calcium 9.1 Phosphorus 6.7 H Magnesium 2.2 Total Bilirubin AST ALT Alkaline Phosphatase Ammonia Troponin I High Sens B-Natriuretic Peptide Total Protein Albumin 3.1 L Beta-Hydroxybutyrate Influenza Type A (PCR) Influenza Type B (PCR) RSV RNA Qual (PCR) SARS-CoV-2 RNA (RT-PCR) 08/17/22 08/17/22 08/17/22 05:23 06:23 07:30 WBC RBC Hgb Hct MCV MCH MCHC RDW Plt Count MPV Immature Gran % (Auto) Neut % (Auto) Lymph % (Auto) [place] % (Auto) Eos % (Auto) Baso % (Auto) Lymph # (Auto) [place] # (Auto) Eos # (Auto) Baso # (Auto) Abs Immat Gran (auto) Absolute Neuts (auto) Absolute Nucleated RBC Nucleated RBC % (auto) PT INR APTT VBG pH VBG pCO2 VBG pO2 VBG HCO3 VBG O2 Saturation VBG Base Excess Sodium Potassium Chloride Carbon Dioxide Anion Gap BUN Creatinine Estim Creat Clear Calc Estimated GFR POC Glucose 92 130 H 82 Random Glucose Lactic Acid Lactic Acid F/U @ 2Hr Lactic Acid F/U @ 4Hr Calcium Phosphorus Magnesium Total Bilirubin AST ALT Alkaline Phosphatase Ammonia Troponin I High Sens B-Natriuretic Peptide Total Protein Albumin Beta-Hydroxybutyrate Influenza Type A (PCR) Influenza Type B (PCR) RSV RNA Qual (PCR) SARS-CoV-2 RNA (RT-PCR) 08/17/22 08:03 WBC RBC Hgb Hct MCV MCH MCHC RDW Plt Count MPV Immature Gran % (Auto) Neut % (Auto) Lymph % (Auto) [place] % (Auto) Eos % (Auto) Baso % (Auto) Lymph # (Auto) [place] # (Auto) Eos # (Auto) Baso # (Auto) Abs Immat Gran (auto) Absolute Neuts (auto) Absolute Nucleated RBC Nucleated RBC % (auto) PT INR APTT VBG pH VBG pCO2 VBG pO2 VBG HCO3 VBG O2 Saturation VBG Base Excess Sodium Potassium Chloride Carbon Dioxide Anion Gap BUN Creatinine Estim Creat Clear Calc Estimated GFR POC Glucose 77 Random Glucose Lactic Acid Lactic Acid F/U @ 2Hr Lactic Acid F/U @ 4Hr Calcium Phosphorus Magnesium Total Bilirubin AST ALT Alkaline Phosphatase Ammonia Troponin I High Sens B-Natriuretic Peptide Total Protein Albumin Beta-Hydroxybutyrate Influenza Type A (PCR) Influenza Type B (PCR) RSV RNA Qual (PCR) SARS-CoV-2 RNA (RT-PCR) Progress Note: A&P Assessment and plan (1) Acute on chronic respiratory failure with hypoxia: Status: Acute (2) ESRD (end stage renal disease) on dialysis: Status: Acute (3) Pulmonary edema: Status: Acute (4) Tracheostomy in place: Status: Acute (5) Type 2 diabetes mellitus with hyperglycemia: Status: Acute (6) DKA (diabetic ketoacidosis): Status: Acute (7) CHF exacerbation: Status: Acute Plan Assessment: 62-year-old lady with multiple medical issues admitted with acute hypoxic respiratory failure secondary to pulmonary edema secondary to acute chronic congestive heart failure on the background of end-stage renal disease on hemodialysis with history of recent TAVR. Plan: Neuro: No acute issues. Cardiac: Acute on chronic congestive heart failure with pulmonary edema improving with additional ultrafiltration. Recent TAVR for aortic stenosis. Underlying peripheral vascular disease with lower extremity ulceration. Underlying CAD. Pulmonary: acute hypoxic respiratory failure secondary to pulmonary edema briefly requiring ventilatory support, now titrated off. Underlying tracheostomy flow cord paralysis. Underlying SLOAN on CPAP. Renal: End-stage renal disease on hemodialysis requiring additional ultrafiltration. Nephrology service care appreciated. Endo: Diabetic ketoacidosis, titrate off insulin drip to subcutaneous insulin. GI: No acute issues. ID: Empirically covered with broad-spectrum antibiotics. Heme/Onc: No acute issues. Psych: No acute issues. Miscellaneous: No acute issues. Prophylaxis: Heparin Diet: renal Critical care time spent: 60 minutes Quality Stroke Does the patient have a stroke diagnosis?: No VTE Prior VTE?: No VTE Risk Level:: Medical - moderate - high VTE Device Contraindication: N/A - Device Ordered VTE Drug Contraindication: N/A - Med Ordered
--- NOTE | 2022-08-17 12:19 | PM.PNNEP ---
Subjective Subjective Date of Service: 08/17/22 Interval history: 62-year-old lady with underlying history ofSeizure disorder, COPD, CVA, congestive heart failure, aortic stenosis status post TAVR and pacemaker on 07/13/2022, diabetes mellitus with end-stage renal disease on hemodialysis Wednesday/Wednesday/Wednesday, obesity with obstructive sleep apnea, on nocturnal APAP, vocal cord paralysis status post tracheostomy Now in ICU Seen on HD Pt had ultrafiltration lat night session and initiation ventilatory support through tracheostomy , improved significantly after ultrafiltration. Physical Exam Vital Signs: Vital Signs: Last Vital Signs Temp 97.5 F 08/17/22 12:00 Pulse 77 08/17/22 12:00 Resp 19 08/17/22 12:00 BP 147/69 H 08/17/22 12:00 Pulse Ox 97 08/17/22 12:00 O2 Del Method Trach Collar 08/17/22 12:00 O2 Flow Rate 90 08/16/22 16:58 FiO2 28 08/17/22 12:00 BMI result Body Mass Index 24.5 Const: General: no acute distress, alert and awake Nutritional Appearance: obese Eyes: Sclerae: sclerae normal EOM: EOMs intact bilaterally Neck: Neck: Yes no lymphadenopathy, Yes trachea midline, Yes supple and Yes tracheostomy present ( on tracheal collar) Resp: Effort & Inspection: normal respiratory effort and no respiratory distress Auscultation: crackles ( bilateral) Cardio: Rate: regular rate Rhythm: regular rhythm Heart sounds: no gallops, no murmurs and no rubs GI: Palpation (GI): Soft to palpation and Other GI palpation findings present ( Nontender) Auscultation: normal bowel sounds Extrem: Other: left leg with anterior ulceration General: No clubbing, No cyanosis and Yes edema ( 2+ bilateral) Objective Data Labs 08/17/22 04:59 08/17/22 04:59 Labs: Laboratory Results - last 24 hr 08/16/22 08/16/22 08/16/22 14:08 14:08 14:09 WBC 12.3 H RBC 4.50 Hgb 13.0 Hct 42.1 MCV 93.6 MCH 28.9 MCHC 30.9 L RDW 24.0 H Plt Count 283 MPV 11.7 Immature Gran % (Auto) 0.5 H Neut % (Auto) 88.8 H Lymph % (Auto) 6.4 L [place] % (Auto) 3.7 Eos % (Auto) 0.1 Baso % (Auto) 0.5 Lymph # (Auto) 0.8 L [place] # (Auto) 0.5 Eos # (Auto) 0.0 Baso # (Auto) 0.1 Abs Immat Gran (auto) 0.06 H Absolute Neuts (auto) 10.9 H Absolute Nucleated RBC 0.050 H Nucleated RBC % (auto) 0.4 H PT 13.5 H INR 1.2 H APTT 37.4 H VBG pH VBG pCO2 VBG pO2 VBG HCO3 VBG O2 Saturation VBG Base Excess Sodium Potassium Chloride Carbon Dioxide Anion Gap BUN Creatinine Estim Creat Clear Calc Estimated GFR POC Glucose Random Glucose Lactic Acid Lactic Acid F/U @ 2Hr Lactic Acid F/U @ 4Hr Calcium Phosphorus Magnesium Total Bilirubin AST ALT Alkaline Phosphatase Ammonia Troponin I High Sens B-Natriuretic Peptide Total Protein Albumin Beta-Hydroxybutyrate Influenza Type A (PCR) NEGATIVE Influenza Type B (PCR) NEGATIVE RSV RNA Qual (PCR) NEGATIVE SARS-CoV-2 RNA (RT-PCR) NEGATIVE 08/16/22 08/16/22 08/16/22 15:41 15:41 15:41 WBC RBC Hgb Hct MCV MCH MCHC RDW Plt Count MPV Immature Gran % (Auto) Neut % (Auto) Lymph % (Auto) [place] % (Auto) Eos % (Auto) Baso % (Auto) Lymph # (Auto) [place] # (Auto) Eos # (Auto) Baso # (Auto) Abs Immat Gran (auto) Absolute Neuts (auto) Absolute Nucleated RBC Nucleated RBC % (auto) PT INR APTT VBG pH VBG pCO2 VBG pO2 VBG HCO3 VBG O2 Saturation VBG Base Excess Sodium 141 Potassium 5.3 H Chloride 96 Carbon Dioxide 19 L Anion Gap 31 H BUN 51 H Creatinine 6.28 H* Estim Creat Clear Calc 8.1 Estimated GFR 7 POC Glucose Random Glucose 271 H Lactic Acid Lactic Acid F/U @ 2Hr Lactic Acid F/U @ 4Hr Calcium 9.4 Phosphorus Magnesium 2.2 Total Bilirubin 1.0 AST 31 ALT 7 Alkaline Phosphatase 128 H Ammonia Troponin I High Sens 78.3 H* D B-Natriuretic Peptide 22049 H Total Protein 7.3 Albumin 3.5 Beta-Hydroxybutyrate Influenza Type A (PCR) Influenza Type B (PCR) RSV RNA Qual (PCR) SARS-CoV-2 RNA (RT-PCR) 08/16/22 08/16/22 08/16/22 15:41 15:41 15:41 WBC RBC Hgb Hct MCV MCH MCHC RDW Plt Count MPV Immature Gran % (Auto) Neut % (Auto) Lymph % (Auto) [place] % (Auto) Eos % (Auto) Baso % (Auto) Lymph # (Auto) [place] # (Auto) Eos # (Auto) Baso # (Auto) Abs Immat Gran (auto) Absolute Neuts (auto) Absolute Nucleated RBC Nucleated RBC % (auto) PT INR APTT VBG pH 7.30 L VBG pCO2 40 VBG pO2 90 VBG HCO3 20 L VBG O2 Saturation 93.0 VBG Base Excess -5.7 Sodium Potassium Chloride Carbon Dioxide Anion Gap BUN Creatinine Estim Creat Clear Calc Estimated GFR POC Glucose Random Glucose Lactic Acid 3.3 H* Lactic Acid F/U @ 2Hr Lactic Acid F/U @ 4Hr Calcium Phosphorus Magnesium Total Bilirubin AST ALT Alkaline Phosphatase Ammonia 40 Troponin I High Sens B-Natriuretic Peptide Total Protein Albumin Beta-Hydroxybutyrate Influenza Type A (PCR) Influenza Type B (PCR) RSV RNA Qual (PCR) SARS-CoV-2 RNA (RT-PCR) 08/16/22 08/16/22 08/16/22 15:41 18:06 18:21 WBC RBC Hgb Hct MCV MCH MCHC RDW Plt Count MPV Immature Gran % (Auto) Neut % (Auto) Lymph % (Auto) [place] % (Auto) Eos % (Auto) Baso % (Auto) Lymph # (Auto) [place] # (Auto) Eos # (Auto) Baso # (Auto) Abs Immat Gran (auto) Absolute Neuts (auto) Absolute Nucleated RBC Nucleated RBC % (auto) PT INR APTT VBG pH VBG pCO2 VBG pO2 VBG HCO3 VBG O2 Saturation VBG Base Excess Sodium Potassium Chloride Carbon Dioxide Anion Gap BUN Creatinine Estim Creat Clear Calc Estimated GFR POC Glucose 206 H Random Glucose Lactic Acid Lactic Acid F/U @ 2Hr Lactic Acid F/U @ 4Hr Calcium Phosphorus Magnesium Total Bilirubin AST ALT Alkaline Phosphatase Ammonia Troponin I High Sens 74.1 H* B-Natriuretic Peptide Total Protein Albumin Beta-Hydroxybutyrate 0.32 H Influenza Type A (PCR) Influenza Type B (PCR) RSV RNA Qual (PCR) SARS-CoV-2 RNA (RT-PCR) 08/16/22 08/16/22 08/16/22 18:21 19:03 20:03 WBC RBC Hgb Hct MCV MCH MCHC RDW Plt Count MPV Immature Gran % (Auto) Neut % (Auto) Lymph % (Auto) [place] % (Auto) Eos % (Auto) Baso % (Auto) Lymph # (Auto) [place] # (Auto) Eos # (Auto) Baso # (Auto) Abs Immat Gran (auto) Absolute Neuts (auto) Absolute Nucleated RBC Nucleated RBC % (auto) PT INR APTT VBG pH VBG pCO2 VBG pO2 VBG HCO3 VBG O2 Saturation VBG Base Excess Sodium Potassium Chloride Carbon Dioxide Anion Gap BUN Creatinine Estim Creat Clear Calc Estimated GFR POC Glucose 210 H 110 Random Glucose Lactic Acid Lactic Acid F/U @ 2Hr 2.3 H* Lactic Acid F/U @ 4Hr Calcium Phosphorus Magnesium Total Bilirubin AST ALT Alkaline Phosphatase Ammonia Troponin I High Sens B-Natriuretic Peptide Total Protein Albumin Beta-Hydroxybutyrate Influenza Type A (PCR) Influenza Type B (PCR) RSV RNA Qual (PCR) SARS-CoV-2 RNA (RT-PCR) 08/16/22 08/16/22 08/16/22 21:01 21:01 21:02 WBC RBC Hgb Hct MCV MCH MCHC RDW Plt Count MPV Immature Gran % (Auto) Neut % (Auto) Lymph % (Auto) [place] % (Auto) Eos % (Auto) Baso % (Auto) Lymph # (Auto) [place] # (Auto) Eos # (Auto) Baso # (Auto) Abs Immat Gran (auto) Absolute Neuts (auto) Absolute Nucleated RBC Nucleated RBC % (auto) PT INR APTT VBG pH VBG pCO2 VBG pO2 VBG HCO3 VBG O2 Saturation VBG Base Excess Sodium 141 Potassium 4.6 Chloride 97 Carbon Dioxide 18 L Anion Gap 31 H BUN 53 H Creatinine 6.19 H* Estim Creat Clear Calc 8.8 Estimated GFR 7 POC Glucose 57 L* Random Glucose 63 Lactic Acid Lactic Acid F/U @ 2Hr Lactic Acid F/U @ 4Hr 2.4 H* Calcium 9.0 Phosphorus Magnesium Total Bilirubin AST ALT Alkaline Phosphatase Ammonia Troponin I High Sens B-Natriuretic Peptide Total Protein Albumin Beta-Hydroxybutyrate Influenza Type A (PCR) Influenza Type B (PCR) RSV RNA Qual (PCR) SARS-CoV-2 RNA (RT-PCR) 08/16/22 08/16/22 08/16/22 21:20 21:25 22:14 WBC RBC Hgb Hct MCV MCH MCHC RDW Plt Count MPV Immature Gran % (Auto) Neut % (Auto) Lymph % (Auto) [place] % (Auto) Eos % (Auto) Baso % (Auto) Lymph # (Auto) [place] # (Auto) Eos # (Auto) Baso # (Auto) Abs Immat Gran (auto) Absolute Neuts (auto) Absolute Nucleated RBC Nucleated RBC % (auto) PT INR APTT VBG pH 7.48 H VBG pCO2 26 VBG pO2 255 VBG HCO3 19 L VBG O2 Saturation 99.0 VBG Base Excess -2.4 Sodium Potassium Chloride Carbon Dioxide Anion Gap BUN Creatinine Estim Creat Clear Calc Estimated GFR POC Glucose 178 H 112 Random Glucose Lactic Acid Lactic Acid F/U @ 2Hr Lactic Acid F/U @ 4Hr Calcium Phosphorus Magnesium Total Bilirubin AST ALT Alkaline Phosphatase Ammonia Troponin I High Sens B-Natriuretic Peptide Total Protein Albumin Beta-Hydroxybutyrate Influenza Type A (PCR) Influenza Type B (PCR) RSV RNA Qual (PCR) SARS-CoV-2 RNA (RT-PCR) 08/16/22 08/17/22 08/17/22 23:29 00:37 01:31 WBC RBC Hgb Hct MCV MCH MCHC RDW Plt Count MPV Immature Gran % (Auto) Neut % (Auto) Lymph % (Auto) [place] % (Auto) Eos % (Auto) Baso % (Auto) Lymph # (Auto) [place] # (Auto) Eos # (Auto) Baso # (Auto) Abs Immat Gran (auto) Absolute Neuts (auto) Absolute Nucleated RBC Nucleated RBC % (auto) PT INR APTT VBG pH VBG pCO2 VBG pO2 VBG HCO3 VBG O2 Saturation VBG Base Excess Sodium Potassium Chloride Carbon Dioxide Anion Gap BUN Creatinine Estim Creat Clear Calc Estimated GFR POC Glucose 169 H 103 116 H Random Glucose Lactic Acid Lactic Acid F/U @ 2Hr Lactic Acid F/U @ 4Hr Calcium Phosphorus Magnesium Total Bilirubin AST ALT Alkaline Phosphatase Ammonia Troponin I High Sens B-Natriuretic Peptide Total Protein Albumin Beta-Hydroxybutyrate Influenza Type A (PCR) Influenza Type B (PCR) RSV RNA Qual (PCR) SARS-CoV-2 RNA (RT-PCR) 08/17/22 08/17/22 08/17/22 02:35 03:35 04:25 WBC RBC Hgb Hct MCV MCH MCHC RDW Plt Count MPV Immature Gran % (Auto) Neut % (Auto) Lymph % (Auto) [place] % (Auto) Eos % (Auto) Baso % (Auto) Lymph # (Auto) [place] # (Auto) Eos # (Auto) Baso # (Auto) Abs Immat Gran (auto) Absolute Neuts (auto) Absolute Nucleated RBC Nucleated RBC % (auto) PT INR APTT VBG pH VBG pCO2 VBG pO2 VBG HCO3 VBG O2 Saturation VBG Base Excess Sodium Potassium Chloride Carbon Dioxide Anion Gap BUN Creatinine Estim Creat Clear Calc Estimated GFR POC Glucose 122 H 94 146 H Random Glucose Lactic Acid Lactic Acid F/U @ 2Hr Lactic Acid F/U @ 4Hr Calcium Phosphorus Magnesium Total Bilirubin AST ALT Alkaline Phosphatase Ammonia Troponin I High Sens B-Natriuretic Peptide Total Protein Albumin Beta-Hydroxybutyrate Influenza Type A (PCR) Influenza Type B (PCR) RSV RNA Qual (PCR) SARS-CoV-2 RNA (RT-PCR) 08/17/22 08/17/22 08/17/22 04:59 04:59 04:59 WBC 14.0 H RBC 3.72 L Hgb 11.1 L Hct 35.1 L MCV 94.4 MCH 29.8 MCHC 31.6 RDW 23.4 H Plt Count 216 MPV 11.2 Immature Gran % (Auto) 0.4 Neut % (Auto) 80.0 H Lymph % (Auto) 11.6 L [place] % (Auto) 6.5 Eos % (Auto) 0.8 Baso % (Auto) 0.7 Lymph # (Auto) 1.6 [place] # (Auto) 0.9 Eos # (Auto) 0.1 Baso # (Auto) 0.1 Abs Immat Gran (auto) 0.05 H Absolute Neuts (auto) 11.2 H Absolute Nucleated RBC 0.040 H Nucleated RBC % (auto) 0.3 H PT INR APTT VBG pH 7.48 H VBG pCO2 27 VBG pO2 159 VBG HCO3 20 L VBG O2 Saturation 99.0 VBG Base Excess 0.1 Sodium 139 Potassium 4.7 Chloride 97 Carbon Dioxide 17 L Anion Gap 30 H BUN 56 H Creatinine 6.62 H* Estim Creat Clear Calc 8.3 Estimated GFR 6 POC Glucose Random Glucose 111 Lactic Acid Lactic Acid F/U @ 2Hr Lactic Acid F/U @ 4Hr Calcium 9.1 Phosphorus 6.7 H Magnesium 2.2 Total Bilirubin AST ALT Alkaline Phosphatase Ammonia Troponin I High Sens B-Natriuretic Peptide Total Protein Albumin 3.1 L Beta-Hydroxybutyrate Influenza Type A (PCR) Influenza Type B (PCR) RSV RNA Qual (PCR) SARS-CoV-2 RNA (RT-PCR) 08/17/22 08/17/22 08/17/22 05:23 06:23 07:30 WBC RBC Hgb Hct MCV MCH MCHC RDW Plt Count MPV Immature Gran % (Auto) Neut % (Auto) Lymph % (Auto) [place] % (Auto) Eos % (Auto) Baso % (Auto) Lymph # (Auto) [place] # (Auto) Eos # (Auto) Baso # (Auto) Abs Immat Gran (auto) Absolute Neuts (auto) Absolute Nucleated RBC Nucleated RBC % (auto) PT INR APTT VBG pH VBG pCO2 VBG pO2 VBG HCO3 VBG O2 Saturation VBG Base Excess Sodium Potassium Chloride Carbon Dioxide Anion Gap BUN Creatinine Estim Creat Clear Calc Estimated GFR POC Glucose 92 130 H 82 Random Glucose Lactic Acid Lactic Acid F/U @ 2Hr Lactic Acid F/U @ 4Hr Calcium Phosphorus Magnesium Total Bilirubin AST ALT Alkaline Phosphatase Ammonia Troponin I High Sens B-Natriuretic Peptide Total Protein Albumin Beta-Hydroxybutyrate Influenza Type A (PCR) Influenza Type B (PCR) RSV RNA Qual (PCR) SARS-CoV-2 RNA (RT-PCR) 08/17/22 08/17/22 08:03 11:21 WBC RBC Hgb Hct MCV MCH MCHC RDW Plt Count MPV Immature Gran % (Auto) Neut % (Auto) Lymph % (Auto) [place] % (Auto) Eos % (Auto) Baso % (Auto) Lymph # (Auto) [place] # (Auto) Eos # (Auto) Baso # (Auto) Abs Immat Gran (auto) Absolute Neuts (auto) Absolute Nucleated RBC Nucleated RBC % (auto) PT INR APTT VBG pH VBG pCO2 VBG pO2 VBG HCO3 VBG O2 Saturation VBG Base Excess Sodium Potassium Chloride Carbon Dioxide Anion Gap BUN Creatinine Estim Creat Clear Calc Estimated GFR POC Glucose 77 87 Random Glucose Lactic Acid Lactic Acid F/U @ 2Hr Lactic Acid F/U @ 4Hr Calcium Phosphorus Magnesium Total Bilirubin AST ALT Alkaline Phosphatase Ammonia Troponin I High Sens B-Natriuretic Peptide Total Protein Albumin Beta-Hydroxybutyrate Influenza Type A (PCR) Influenza Type B (PCR) RSV RNA Qual (PCR) SARS-CoV-2 RNA (RT-PCR) Procedures Date of Service Date of Service: 08/17/22 Assessment & Plan Assessment and plan (1) End stage renal disease: Status: Acute Assessment and Plan: PLAN:?62-year-old female with a history?anemia, aortic stenosis, HF with preserved EF, COPD, CVA, ESRD on HD (M/W/F), HLD, HTN, hypothyroid, SLOAN, vocal cord paralysis s/p tracheostomy, CAD s/p TAVR and pacemaker admitted with acute respiratory failure, acute heart failure, DKA.? 1. ESRD on HD 2. Vol over load 3. Resp failure 4, DKA Continue Hd Vol removal; as tolerated HD MWF DKA rx is IV insulin - No need to give fluids in HD pts Full consult to follow Thx Dr. Yang (2) DKA (diabetic ketoacidosis): Status: Acute (3) Acute on chronic respiratory failure with hypoxia: Status: Acute Time Spent With Patient Time: Total time managing care of this patient today ____ minutes. Progress Note: Quality Stroke Does the patient have a stroke diagnosis?: No
--- NOTE | 2022-08-17 13:16 | PC.RT ---
Pts trach tube changed by Dr. Winn. A 7.5 cuffless shiley trach tube was placed in a sterile fashion over a bougie into a patent stoma with no resistance. One attempt, no bleeding or trauma noted, pt blair well, spo2 100, hr 59. spare 7.5 cuffless and 7.5 cuffed at bedside. RN present.
--- NOTE | 2022-08-17 13:31 | MHC.CM.PN ---
Met with pt and spoke with dtr/HCP Mary via phone to review d/c planning needs: pt had a recent prolonged hospital stay (30 days) following TAVR w/complications: d/c'd to home w/VNA but declined requiring rehospitalization. Mary states family advocated for STR but was told pt could return to home: Pt receives HD on M, W, F at [facility] in [place]: shuttle transports. She also has [facility] and [facility] follow up in the community. Her trach needs are managed by [facility]. Both pt's dtrs assist with transportation and any other care needs pt has. Pt would benefit from STR - receptive to broad referrals - CM to follow for finalization of d/c planning needs.
--- NOTE | 2022-08-17 18:55 | HO.WOUNDCONS ---
History of Present Illness Data of Consult Service Date: 08/17/22 Requesting physician: Tracie Barrow Primary Care Provider: Mason Lopez MD [facility] Reason for consult: Right leg wounds This is a 62-year-old female with a history of chronic renal failure on hemodialysis, peripheral vascular disease, aortic stenosis recently status post TAVR and pacemaker placement at [facility], type 2 diabetes mellitus, vocal cord paralysis with tracheostomy who presented to the emergency department yesterday with worsening shortness of breath. Workup was consistent with volume overload. She required intubation and was treated with ultrafiltration and hemodialysis with improvement and has since been extubated. On admission, she was noted to have multiple wounds of her right lower leg. Etiology is unclear. She was undergoing dialysis at the time of my visit and although alert was not able to provide any clear information regarding the wounds. She [facility] on [facility]2022 and did not have these wounds at the time of her last visit. She has undergone vascular evaluation with Dr. Nuñez. Results of that evaluation are not currently available. Review of Systems Review of Systems: Full system review was not obtained. Tracheostomy in place. She denied shortness of breath, chest pain, and pain in the right lower leg. [facility] Medical History Anemia Aortic stenosis CHF (congestive heart failure) Congestive heart failure COPD (chronic obstructive pulmonary disease) CVA (cerebral vascular accident) End stage renal disease ESRD on dialysis GI bleed Hypercholesterolemia Hypertension Hypertensive cardiovascular disease Hypothyroid Insomnia SLOAN (obstructive sleep apnea) Right hip pain Tracheostomy in place Type 2 diabetes mellitus with hyperglycemia Vocal cord paralysis Family History Mother Chronic kidney disease CAD (coronary artery disease) Renal failure Hypertension Father No problems noted. Sister Thyroid cancer Brother No problems noted. Daughter No problems noted. Daughter No problems noted. Surgical History History of colonoscopy History of esophagogastroduodenoscopy (EGD) History of total hysterectomy History of tracheostomy Social History Household Members: Spouse Housing: Apartment Do you presently have visiting nurse or other home services: Yes ([facility]) Alcohol intake: never Patient Tobacco Use Status: Never used Tobacco Smoked in Last 30 Days: No e-Cigarette/Vaping Use: Never Used Second Hand Smoke Exposure: No Use of substances other than those prescribed or required for medical reasons: No Currently Displaying Signs/Symptoms of Drug Intoxication Withdrawal: No Have you been hit, kicked, punched, or otherwise hurt by someone within the past year? If so, by whom?: No Do you feel safe in your current relationship?: Yes Is there a partner from a previous relationship who is making you feel unsafe now?: No Are you made to feel afraid or neglected: No Spiritual Healthcare Practices: none per family member Yazdanism Healthcare Practices: Oriental [employer] Cultural Healthcare Practices: none per family member Advance Directives: Yes Advance Directives on File: Yes Advance Directives Date on File: 11/08/20 Do you have thoughts of harming others: None Do you have a plan to hurt others: No Plan Recently lost weight without trying: Yes How much weight loss: 2-13 pounds Patient : No : No Poor oral hygiene: No service: No Current occupational status: disabled 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 Cognitive needs: Yes (walker) Hearing needs: No Vision needs: Yes (Glasses) Meds Allergies Allergy/AdvReac Type Severity Reaction Status Date / Time baclofen AdvReac Severe Confusion Verified 08/16/22 12:58 Active Medications: Current Medications Dextrose (Dextrose 50 % 25 Gm/50 Ml Syringe) 25 gm IVPUSH Q30M PRN PRN Reason: BG < 70 Last Admin: 08/17/22 05:41 Dose: 25 gm Heparin Sodium (Porcine) (Heparin Sodium,Porcine 5,000 Unit/Ml Vial) 5,000 unit SUBCUT Q8H [facility] Last Admin: 08/17/22 17:13 Dose: 5,000 unit Insulin Human Lispro (Insulin Lispro 100 Unit/Ml 3 Ml Vial) 0 unit SUBCUT QIDACHS [facility]; Protocol Last Admin: 08/17/22 16:39 Dose: Not Given Morphine Sulfate (Morphine Sulfate 2 Mg/Ml Cartridge) 2 mg IVPUSH Q3H PRN; Protocol PRN Reason: Pain, Moderate(Pain Scale 4-6) Last Admin: 08/17/22 18:15 Dose: 2 mg Omeprazole (Omeprazole/Na Bicarb Oral Susp 20 Mg/10 Ml Ud Cup) 40 mg PO DAILY@0630 [facility] Home Medications Medication Instructions Recorded Confirmed Last Taken Type sevelamer carbonate 800 mg tablet 800 mg PO TID 12/19/20 08/16/22 08/16/22 08:00 History gabapentin 100 mg capsule 100 mg PO DAILY 12/11/21 08/16/22 08/16/22 08:00 History levothyroxine 75 mcg tablet 75 mcg PO DAILY@0600 02/04/22 08/16/22 08/16/22 06:00 History aspirin 81 mg tablet,delayed 81 mg PO DAILY 05/19/22 08/16/22 Unknown History release (Adult Aspirin Regimen) latanoprost 0.005 % eye drops 1 drp ophthalmic (eye) BEDTIME 05/19/22 08/16/22 08/15/22 History amlodipine 5 mg tablet 10 mg PO DAILY 08/16/22 08/16/22 08/16/22 08:00 History brimonidine 0.2 % eye drops 1 drp ophthalmic (eye) DAILY 08/16/22 08/16/22 08/16/22 08:00 History clopidogrel 75 mg tablet 75 mg PO DAILY 08/16/22 08/16/22 08/16/22 08:00 History glucagon 3 mg/actuation nasal 3 mg intranasal ONCE PRN 08/16/22 08/16/22 Unknown History spray (Baqsimi) Hypoglycemia hydromorphone 2 mg tablet 1 mg PO Q6H PRN severe pain 08/16/22 08/16/22 Unknown History insulin aspart U-100 100 unit/mL 1 sliding scale dose subcut TIDAC 08/16/22 08/16/22 08/16/22 08:00 History (3 mL) subcutaneous pen (Novolog FlexPen U-100 Insulin aspart) insulin glargine 100 unit/mL (3 6 unit subcut BEDTIME 08/16/22 08/16/22 08/15/22 History mL) subcutaneous pen (Lantus Solostar U-100 Insulin) lidocaine-prilocaine 2.5 %-2.5 % 1 appl topical MOWEFR PRN fistula 08/16/22 08/16/22 08/14/22 History topical cream pain sucroferric oxyhydroxide 500 mg 500 mg PO DAILY PRN snack 08/16/22 08/16/22 Unknown History chewable tablet (Velphoro) sucroferric oxyhydroxide 500 mg 500 mg PO TID 08/16/22 08/16/22 Unknown History chewable tablet (Velphoro) Physical Exam Vital Signs and Narrative: Vital Signs: Last Vital Signs Temp 98.0 F 08/17/22 17:49 Pulse 60 08/17/22 17:49 Resp 16 08/17/22 17:49 BP 144/72 H 08/17/22 17:49 Pulse Ox 95 08/17/22 17:49 O2 Del Method Trach Collar 08/17/22 17:49 O2 Flow Rate 5 08/17/22 17:49 FiO2 28 08/17/22 17:49 BMI result Body Mass Index 24.5 Const: Other: Alert, cooperative, in no apparent distress Skin: Other: data:image/jpg;base64,/9j/4AAQSkZJRgABAQEAYABgAAD/2wBDAAEBAQEBAQEBAQEBAQEBAQEBAQEBAQEBAQEBAQEBAQEBAQEBAQEBAQEBAQEBAQEBAQEBAQEBAQEBAQEBAQEBAQH/2wBDAQEBAQEBAQEBAQEBAQEBAQEBAQEBAQEBAQEBAQEBAQEBAQEBAQEBAQEBAQEBAQEBAQEBAQEBAQEBAQEBAQEBAQH/jRIISJKhF4DOUPUC [file] LYyNu/fuGGA/i+c7Y+oNlqRxYwrtMonlsmPxomj9CqKEk5ygbfOq5OaTkm18pl8aasBY7wNTLhcW0NO9YajmVQI1kVLwQLK2RluErgxXQjSolcf30qGyypyLwidLQ386eF3QTjye85n2XRrX88DaKYbrs63nu5GNDhK0jVNvcI9Us2jkkEHJrrsHJYvosXfQRRLMEXohbEx5Sm1N0GWG79u2hw4d55o+1nT1615apEm33lpeFY/wax room supervisor/wWfa fwS+Wvz7EDS6lxb+MHw3/6WUsXl2gMS5e1dclRaBjbdq0KsauOgZNTmcWQZI4JS/Qvdn4uPmpae/D+c5rfwZqeni3L1fYIqxhmvbC0Y7O/A05zZ00bU/Quan/Dj4+6/+zHc/DYNck5SoWxx5puesW+JZmhN2EzB2C+H4YmPMe3HblzeUdeY5WFf4FuPizjEPEAo4lg41ZC3xHWnUDo1Wiv/yeeZxt3bc87z6gMMgQtpgYeSyyQaXCkeRYSo [file] egBboJVnR6XrIt18s3Fh5bFX2ma+JBnM4ufFhWjdgDF+TolJ0a9bb3KpAeqUYvC1OeFf7EYsW+1gF2FchovXEhUy3uvvlXVgchrU7l5M94K+ordering box operator+I/Cfw/7OyoAPUbwul0gN6DaGkeDFxOZRH8iF3r+Dsk4Ulyh/PvJ0FXldB9cPAGDTFhad5qtRA9ON40W7cQ99/ZI/al8KeF/2VHqk2EtDxn99yQ4W696W7sE/MzkF69nDdEug5KaqZ [file] ACx+7W8hFqrSe9rtw1XEIGjdN1ki33MT7O7sY1srbSJQmBw0xAWOHB/sy3gqFl+gj90FTMHLEsCGxoIFCxsmpC1caeUET0MVh2KAZ9n7vbol3/wax room supervisor/xMK225doS39bYb5T8jpLIRlE2Til3VwsBG0AigxJ9pYSqfntm1nzVBGKY7JcCF0P6j8JlC+n1g5VR3B7n2xvHsLDqERj39Cs42OXVvqZzMciLc1NzWLyy87QMFrtPCkgIWdOES2SP [file] zfGa2yJdmpVrtG9mxb2574m45wHSq9zMsb1zV42U0yu6v5syvu4gezj0G4bmP6ao32rY/RnQjm3yCGDo6Ath+ZcQuB8DoZ16rRDIgBCo1R2XEAR32RVzP+h+NcWvjuTZHNBNDw6odpVlS3C/SZviOY0QEfXoVxNAKp/0/wALeFtW0+/vp public relations/OPo6kqxoc6nGlpMLyMnhXGytBTYT34KXyRubFvyOubDLbmgh8OzjqQwBrA20BQagfQBhNhTI [file] ciZ5I6SC0dnd20/W+u22+senior microsoft net developer+IlO6Kukh+tsOrrwbBpvPgR3zBmY873pD24W0J8hoa8bknBNJYy2isNuK0nhKT2jk/YP7Q1a++03aWZkku/V/FXiTw/mDsec5JXj+SLA6HWCbL5EZpKJp9tgwgCK5cISbPmXDbyXelaseFWMb2J+Iozp+h6pgKj6j7wBrmoQ4wgGuIhmSorHk1LI+xjD8RgEAqb83AnQ6dTCe8y6n5febjJdhMbE9DkeKdj [file] Lh3QELA0WIMK8yIsk/kKXArGxnxcqbNXCSJYFhzxvYHy4Bvarq8g1sk6/12/XvSGD0Lm1s/l2/Px4Vnx8SaiH08dPFLy0M3l9Zh+azNG/Jz1ifiZAKbLJTVzwz5tcl+O/Vq5r6P7X7sgo8bBExu0ferC37B4SK9o6TFqhgVt2QZHORHkY3WeYeof0QpFe26ZGFjM0TaqK18ss43SAqtxypMn42vAKS0zsRMQUNfwiBCEUZyxzVWPgh/credit counselor [file] vp public relations/oxXEt1T3N1CjLOLNA2/IX0pQEcuVkTZVc2hBzTBHT3zy5bYathP6ReOzcdKHXCsREOWDPiMK02+Sp6JaSFnldI8bxoP/XZlmG3sGULMyhSzb8+X5W/mXWazAx1wru6dYrSO1vpnRxf6MyBCaHMVgUOJWYvbCyvBjrhVQUXQMYweZrIVcS4Mo8PPKknxsMy7QGC1qvGotOuFfeFuUiK86Ua+VE6ASSRwDTyp13hAIDAAQ+14nj759k03 [file] mF9NcS7iPqHQHS40GW3q0NCkBb4AtQ2aGP3jHiCpv4oIHB6NP+l4i1u1GGdfy6f0QY9Sjz8C8zfd47CrmZuOG26wrn19j17blotEn/wax room supervisor+Aq4Xrf2nRCzSW0k9kb/k0740M17H2jJ1qScUVzDB4dTl029gX7bzyqOhILPUTxx5Ercsq5yrypqbpR1nr6c+7oRopypiIcfP2ZGjnZXl95UAWxTxMqk/zAQc5PqO5IKNDZbUi4U23sl01FJ2o [file] uFVfZrEcHnsfXuPTQHVjCgY5pnqTfDMptzezjxIm2zqGi/VALENTÍN+scawX4qMW3oH+4UUzVNa3Oggu5KD3XG8cS1/5c0r/J2/C5T2spCz6umMl2ZDef9/1+f4H0R+9f047l7I+FRyCq4c/QhY85t9K/sn/LB5ccEnv1ZfnuhQkkN3PguLcbm6cxWTqRfo8fH5Gntid0yGi6iEg9okHDkEJ7RqW/g1bVao4hVHsHP178wNOxkw2BvXqLfxwZ81 [file] aGAIrtyrQAnVGbDR3uiaGKEFM6yOAb1HVuSbfGy9kZkQXt3WCkAd+vFog4x7ZBk5anTQHAzrvvyaoWzYr52qYArTQbv3i51b0ItevbSO7l39unfaxZplNdT2G3eTtkkiaSFUAItvLMJ1ELpWP89bmfIaMnrbZHYbyNmZSfAnhagE1AIFEJJoFvjBdIPfrRmjJaPf9fV1As7sT3qCXXCjRxnEMk5P+Maria A/b7xV7ShOhgmTukyKS8nmGy9wA [file] PT9Q/tG+gKa5xHfxS4kaTP15BKqdl5CdvBnxrA3igs8Q4u8EH1JsrBE2ho6mbw08fR0CJuQpyFPwAiZDtFrMVr+NQ4eop1UBlbZtJoEV2cay+9n3zx2u4osimqN7GrI/o7+primer press operator/39+s5cKf5y4Irc4Imbeqxz+nl7U0ia3ORoveDQvfnguQc+nK6oMNCXHdYfw2rqlLKOjwLrPro7gb4U9GoelY7Ol4MYBM4gLtYE9vv2raZVVSqBlFI3W [file] P62/aE+B2xvUwZMTNcI/hhqXxD/Rf6KWFn+EVsv+En0jQY/tAya4x3OtR0qiF1Jx6hWNQEjvYlWxdlpU/M5TidxEUfryNtv/HKd0gbnxvS7SdZ0j5jVaCi2twYbINH5pv1r77Vst2pActajzNtfweUplB4nOAo+X3S72W5OtNoi8DmA7W4oOxw1d/ZWqLdQW/wBgXUba Results Labs 08/17/22 04:59 08/17/22 13:16 Labs: Laboratory Results - last 24 hr 08/16/22 08/16/22 08/16/22 18:21 18:21 19:03 MCV MCH MCHC RDW Plt Count MPV Immature Gran % (Auto) Neut % (Auto) Lymph % (Auto) [place] % (Auto) Eos % (Auto) Baso % (Auto) Lymph # (Auto) [place] # (Auto) Eos # (Auto) Baso # (Auto) Abs Immat Gran (auto) Absolute Neuts (auto) Absolute Nucleated RBC Nucleated RBC % (auto) VBG pH VBG pCO2 VBG pO2 VBG HCO3 VBG O2 Saturation VBG Base Excess Anion Gap Estim Creat Clear Calc Estimated GFR POC Glucose 210 H Random Glucose Lactic Acid F/U @ 2Hr 2.3 H* Lactic Acid F/U @ 4Hr Calcium Phosphorus Magnesium Troponin I High Sens 74.1 H* Albumin 08/16/22 08/16/22 08/16/22 20:03 21:01 21:01 MCV MCH MCHC RDW Plt Count MPV Immature Gran % (Auto) Neut % (Auto) Lymph % (Auto) [place] % (Auto) Eos % (Auto) Baso % (Auto) Lymph # (Auto) [place] # (Auto) Eos # (Auto) Baso # (Auto) Abs Immat Gran (auto) Absolute Neuts (auto) Absolute Nucleated RBC Nucleated RBC % (auto) VBG pH VBG pCO2 VBG pO2 VBG HCO3 VBG O2 Saturation VBG Base Excess Anion Gap 31 H Estim Creat Clear Calc 8.8 Estimated GFR 7 POC Glucose 110 Random Glucose 63 Lactic Acid F/U @ 2Hr Lactic Acid F/U @ 4Hr 2.4 H* Calcium 9.0 Phosphorus Magnesium Troponin I High Sens Albumin 08/16/22 08/16/22 08/16/22 21:02 21:20 21:25 MCV MCH MCHC RDW Plt Count MPV Immature Gran % (Auto) Neut % (Auto) Lymph % (Auto) [place] % (Auto) Eos % (Auto) Baso % (Auto) Lymph # (Auto) [place] # (Auto) Eos # (Auto) Baso # (Auto) Abs Immat Gran (auto) Absolute Neuts (auto) Absolute Nucleated RBC Nucleated RBC % (auto) VBG pH 7.48 H VBG pCO2 26 VBG pO2 255 VBG HCO3 19 L VBG O2 Saturation 99.0 VBG Base Excess -2.4 Anion Gap Estim Creat Clear Calc Estimated GFR POC Glucose 57 L* 178 H Random Glucose Lactic Acid F/U @ 2Hr Lactic Acid F/U @ 4Hr Calcium Phosphorus Magnesium Troponin I High Sens Albumin 08/16/22 08/16/22 08/17/22 22:14 23:29 00:37 MCV MCH MCHC RDW Plt Count MPV Immature Gran % (Auto) Neut % (Auto) Lymph % (Auto) [place] % (Auto) Eos % (Auto) Baso % (Auto) Lymph # (Auto) [place] # (Auto) Eos # (Auto) Baso # (Auto) Abs Immat Gran (auto) Absolute Neuts (auto) Absolute Nucleated RBC Nucleated RBC % (auto) VBG pH VBG pCO2 VBG pO2 VBG HCO3 VBG O2 Saturation VBG Base Excess Anion Gap Estim Creat Clear Calc Estimated GFR POC Glucose 112 169 H 103 Random Glucose Lactic Acid F/U @ 2Hr Lactic Acid F/U @ 4Hr Calcium Phosphorus Magnesium Troponin I High Sens Albumin 08/17/22 08/17/22 08/17/22 01:31 02:35 03:35 MCV MCH MCHC RDW Plt Count MPV Immature Gran % (Auto) Neut % (Auto) Lymph % (Auto) [place] % (Auto) Eos % (Auto) Baso % (Auto) Lymph # (Auto) [place] # (Auto) Eos # (Auto) Baso # (Auto) Abs Immat Gran (auto) Absolute Neuts (auto) Absolute Nucleated RBC Nucleated RBC % (auto) VBG pH VBG pCO2 VBG pO2 VBG HCO3 VBG O2 Saturation VBG Base Excess Anion Gap Estim Creat Clear Calc Estimated GFR POC Glucose 116 H 122 H 94 Random Glucose Lactic Acid F/U @ 2Hr Lactic Acid F/U @ 4Hr Calcium Phosphorus Magnesium Troponin I High Sens Albumin 08/17/22 08/17/22 08/17/22 04:25 04:59 04:59 MCV 94.4 MCH 29.8 MCHC 31.6 RDW 23.4 H Plt Count 216 MPV 11.2 Immature Gran % (Auto) 0.4 Neut % (Auto) 80.0 H Lymph % (Auto) 11.6 L [place] % (Auto) 6.5 Eos % (Auto) 0.8 Baso % (Auto) 0.7 Lymph # (Auto) 1.6 [place] # (Auto) 0.9 Eos # (Auto) 0.1 Baso # (Auto) 0.1 Abs Immat Gran (auto) 0.05 H Absolute Neuts (auto) 11.2 H Absolute Nucleated RBC 0.040 H Nucleated RBC % (auto) 0.3 H VBG pH VBG pCO2 VBG pO2 VBG HCO3 VBG O2 Saturation VBG Base Excess Anion Gap 30 H Estim Creat Clear Calc 8.3 Estimated GFR 6 POC Glucose 146 H Random Glucose 111 Lactic Acid F/U @ 2Hr Lactic Acid F/U @ 4Hr Calcium 9.1 Phosphorus 6.7 H Magnesium 2.2 Troponin I High Sens Albumin 3.1 L 08/17/22 08/17/22 08/17/22 04:59 05:23 06:23 MCV MCH MCHC RDW Plt Count MPV Immature Gran % (Auto) Neut % (Auto) Lymph % (Auto) [place] % (Auto) Eos % (Auto) Baso % (Auto) Lymph # (Auto) [place] # (Auto) Eos # (Auto) Baso # (Auto) Abs Immat Gran (auto) Absolute Neuts (auto) Absolute Nucleated RBC Nucleated RBC % (auto) VBG pH 7.48 H VBG pCO2 27 VBG pO2 159 VBG HCO3 20 L VBG O2 Saturation 99.0 VBG Base Excess 0.1 Anion Gap Estim Creat Clear Calc Estimated GFR POC Glucose 92 130 H Random Glucose Lactic Acid F/U @ 2Hr Lactic Acid F/U @ 4Hr Calcium Phosphorus Magnesium Troponin I High Sens Albumin 08/17/22 08/17/22 08/17/22 07:30 08:03 11:21 MCV MCH MCHC RDW Plt Count MPV Immature Gran % (Auto) Neut % (Auto) Lymph % (Auto) [place] % (Auto) Eos % (Auto) Baso % (Auto) Lymph # (Auto) [place] # (Auto) Eos # (Auto) Baso # (Auto) Abs Immat Gran (auto) Absolute Neuts (auto) Absolute Nucleated RBC Nucleated RBC % (auto) VBG pH VBG pCO2 VBG pO2 VBG HCO3 VBG O2 Saturation VBG Base Excess Anion Gap Estim Creat Clear Calc Estimated GFR POC Glucose 82 77 87 Random Glucose Lactic Acid F/U @ 2Hr Lactic Acid F/U @ 4Hr Calcium Phosphorus Magnesium Troponin I High Sens Albumin 08/17/22 08/17/22 08/17/22 13:16 16:19 17:35 MCV MCH MCHC RDW Plt Count MPV Immature Gran % (Auto) Neut % (Auto) Lymph % (Auto) [place] % (Auto) Eos % (Auto) Baso % (Auto) Lymph # (Auto) [place] # (Auto) Eos # (Auto) Baso # (Auto) Abs Immat Gran (auto) Absolute Neuts (auto) Absolute Nucleated RBC Nucleated RBC % (auto) VBG pH VBG pCO2 VBG pO2 VBG HCO3 VBG O2 Saturation VBG Base Excess Anion Gap 24 H Estim Creat Clear Calc 16.7 Estimated GFR 16 POC Glucose 146 H 145 H Random Glucose 147 H Lactic Acid F/U @ 2Hr Lactic Acid F/U @ 4Hr Calcium 8.8 Phosphorus Magnesium Troponin I High Sens Albumin Imaging Radiologist's Impressions: Impressions Chest X-Ray 08/16/22 14:08 IMPRESSION: 1. New tracheostomy tube in satisfactory position. 2. Hypoexpanded lungs with bilateral prominent pulmonary hilar vascular structures and perihilar haziness suggestive of CHF/congestion. No major change from previous exam except for tracheostomy tube. Assessment and Plan Time Spent With Patient Time: Total time managing care of this patient today ____ minutes.
[2022-08-17 19:05] LABS: Vancomycin Random 13.2 mcg/mL (15-20)
--- NOTE | 2022-08-17 19:29 | HO.WOUNDCONS ---
History of Present Illness Data of Consult Service Date: 08/17/22 Requesting physician: Tracie Barrow Primary Care Provider: MD DORIS Kumar Reason for consult: wounds right lower leg This is a 62-year-old female with a history of chronic renal failure on hemodialysis, peripheral vascular disease, aortic stenosis recently status post TAVR and pacemaker placement at [facility], type 2 diabetes mellitus, vocal cord paralysis with tracheostomy who presented to the emergency department yesterday with worsening shortness of breath. Workup was consistent with volume overload. She required intubation and was treated with ultrafiltration and hemodialysis with improvement and has since been extubated. On admission, she was noted to have multiple wounds of her right lower leg. Etiology is unclear. She was undergoing dialysis at the time of my visit and although alert was not able to provide any clear information regarding the wounds. She was last seen in the [facility] on 05/19/2022 and did not have these wounds at the time of her last visit. She has undergone vascular evaluation with Dr. Nuñez. Results of that evaluation are not currently available. Review of Systems Review of Systems: No current complaints of shortness of breaths, chest pain, right leg pain PMFSH Medical History Anemia Aortic stenosis CHF (congestive heart failure) Congestive heart failure COPD (chronic obstructive pulmonary disease) CVA (cerebral vascular accident) End stage renal disease ESRD on dialysis GI bleed Hypercholesterolemia Hypertension Hypertensive cardiovascular disease Hypothyroid Insomnia SLOAN (obstructive sleep apnea) Right hip pain Tracheostomy in place Type 2 diabetes mellitus with hyperglycemia Vocal cord paralysis Family History Mother Chronic kidney disease CAD (coronary artery disease) Renal failure Hypertension Father No problems noted. Sister Thyroid cancer Brother No problems noted. Daughter No problems noted. Daughter No problems noted. Surgical History History of colonoscopy History of esophagogastroduodenoscopy (EGD) History of total hysterectomy History of tracheostomy Social History Household Members: Spouse Housing: Apartment Do you presently have visiting nurse or other home services: Yes ([facility]) Alcohol intake: never Patient Tobacco Use Status: Never used Tobacco Smoked in Last 30 Days: No e-Cigarette/Vaping Use: Never Used Second Hand Smoke Exposure: No Use of substances other than those prescribed or required for medical reasons: No Currently Displaying Signs/Symptoms of Drug Intoxication Withdrawal: No Have you been hit, kicked, punched, or otherwise hurt by someone within the past year? If so, by whom?: No Do you feel safe in your current relationship?: Yes Is there a partner from a previous relationship who is making you feel unsafe now?: No Are you made to feel afraid or neglected: No Spiritual Healthcare Practices: none per family member Catholic Healthcare Practices: Synagogue Cultural Healthcare Practices: none per family member Advance Directives: Yes Advance Directives on File: Yes Advance Directives Date on File: 11/08/20 Do you have thoughts of harming others: None Do you have a plan to hurt others: No Plan Recently lost weight without trying: Yes How much weight loss: 2-13 pounds Patient : No : No Poor oral hygiene: No service: No Current occupational status: disabled 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 Cognitive needs: Yes (walker) Hearing needs: No Vision needs: Yes (Glasses) Meds Allergies Allergy/AdvReac Type Severity Reaction Status Date / Time baclofen AdvReac Severe Confusion Verified 08/16/22 12:58 Active Medications: Current Medications Dextrose (Dextrose 50 % 25 Gm/50 Ml Syringe) 25 gm IVPUSH Q30M PRN PRN Reason: BG < 70 Last Admin: 08/17/22 05:41 Dose: 25 gm Heparin Sodium (Porcine) (Heparin Sodium,Porcine 5,000 Unit/Ml Vial) 5,000 unit SUBCUT Q8H [facility] Last Admin: 08/17/22 17:13 Dose: 5,000 unit Insulin Human Lispro (Insulin Lispro 100 Unit/Ml 3 Ml Vial) 0 unit SUBCUT QIDACHS [facility]; Protocol Last Admin: 08/17/22 16:39 Dose: Not Given Morphine Sulfate (Morphine Sulfate 2 Mg/Ml Cartridge) 2 mg IVPUSH Q3H PRN; Protocol PRN Reason: Pain, Moderate(Pain Scale 4-6) Last Admin: 08/17/22 18:15 Dose: 2 mg Omeprazole (Omeprazole/Na Bicarb Oral Susp 20 Mg/10 Ml Ud Cup) 40 mg PO DAILY@0630 [facility] Home Medications Medication Instructions Recorded Confirmed Last Taken Type sevelamer carbonate 800 mg tablet 800 mg PO TID 12/19/20 08/16/22 08/16/22 08:00 History gabapentin 100 mg capsule 100 mg PO DAILY 12/11/21 08/16/22 08/16/22 08:00 History levothyroxine 75 mcg tablet 75 mcg PO DAILY@0600 02/04/22 08/16/22 08/16/22 06:00 History aspirin 81 mg tablet,delayed 81 mg PO DAILY 05/19/22 08/16/22 Unknown History release (Adult Aspirin Regimen) latanoprost 0.005 % eye drops 1 drp ophthalmic (eye) BEDTIME 05/19/22 08/16/22 08/15/22 History amlodipine 5 mg tablet 10 mg PO DAILY 08/16/22 08/16/22 08/16/22 08:00 History brimonidine 0.2 % eye drops 1 drp ophthalmic (eye) DAILY 08/16/22 08/16/22 08/16/22 08:00 History clopidogrel 75 mg tablet 75 mg PO DAILY 08/16/22 08/16/22 08/16/22 08:00 History glucagon 3 mg/actuation nasal 3 mg intranasal ONCE PRN 08/16/22 08/16/22 Unknown History spray (Baqsimi) Hypoglycemia hydromorphone 2 mg tablet 1 mg PO Q6H PRN severe pain 08/16/22 08/16/22 Unknown History insulin aspart U-100 100 unit/mL 1 sliding scale dose subcut TIDAC 08/16/22 08/16/22 08/16/22 08:00 History (3 mL) subcutaneous pen (Novolog FlexPen U-100 Insulin aspart) insulin glargine 100 unit/mL (3 6 unit subcut BEDTIME 08/16/22 08/16/22 08/15/22 History mL) subcutaneous pen (Lantus Solostar U-100 Insulin) lidocaine-prilocaine 2.5 %-2.5 % 1 appl topical MOWEFR PRN fistula 08/16/22 08/16/22 08/14/22 History topical cream pain sucroferric oxyhydroxide 500 mg 500 mg PO DAILY PRN snack 08/16/22 08/16/22 Unknown History chewable tablet (Velphoro) sucroferric oxyhydroxide 500 mg 500 mg PO TID 08/16/22 08/16/22 Unknown History chewable tablet (Velphoro) Physical Exam Vital Signs and Narrative: Vital Signs: Last Vital Signs Temp 98.0 F 08/17/22 19:23 Pulse 58 08/17/22 19:23 Resp 18 08/17/22 19:23 BP 171/74 H 08/17/22 19:23 Pulse Ox 95 08/17/22 19:23 O2 Del Method Trach Collar 08/17/22 19:23 O2 Flow Rate 5 08/17/22 19:23 FiO2 25 08/17/22 19:23 BMI result Body Mass Index 24.5 Const: General: cooperative, no acute distress and alert Skin: Other: Multiple eschars anterior aspect right lower leg, no drainage, no surrounding erythema. Pedal pulses are not palpable. Results Labs 08/17/22 04:59 08/17/22 18:32 Labs: Laboratory Results - last 24 hr 08/16/22 08/16/22 08/16/22 20:03 21:01 21:01 MCV MCH MCHC RDW Plt Count MPV Immature Gran % (Auto) Neut % (Auto) Lymph % (Auto) Glynn % (Auto) Eos % (Auto) Baso % (Auto) Lymph # (Auto) Glynn # (Auto) Eos # (Auto) Baso # (Auto) Abs Immat Gran (auto) Absolute Neuts (auto) Absolute Nucleated RBC Nucleated RBC % (auto) VBG pH VBG pCO2 VBG pO2 VBG HCO3 VBG O2 Saturation VBG Base Excess Anion Gap 31 H Estim Creat Clear Calc 8.8 Estimated GFR 7 POC Glucose 110 Random Glucose 63 Lactic Acid F/U @ 4Hr 2.4 H* Calcium 9.0 Phosphorus Magnesium Albumin Random Vancomycin 08/16/22 08/16/22 08/16/22 21:02 21:20 21:25 MCV MCH MCHC RDW Plt Count MPV Immature Gran % (Auto) Neut % (Auto) Lymph % (Auto) Glynn % (Auto) Eos % (Auto) Baso % (Auto) Lymph # (Auto) Glynn # (Auto) Eos # (Auto) Baso # (Auto) Abs Immat Gran (auto) Absolute Neuts (auto) Absolute Nucleated RBC Nucleated RBC % (auto) VBG pH 7.48 H VBG pCO2 26 VBG pO2 255 VBG HCO3 19 L VBG O2 Saturation 99.0 VBG Base Excess -2.4 Anion Gap Estim Creat Clear Calc Estimated GFR POC Glucose 57 L* 178 H Random Glucose Lactic Acid F/U @ 4Hr Calcium Phosphorus Magnesium Albumin Random Vancomycin 08/16/22 08/16/22 08/17/22 22:14 23:29 00:37 MCV MCH MCHC RDW Plt Count MPV Immature Gran % (Auto) Neut % (Auto) Lymph % (Auto) Glynn % (Auto) Eos % (Auto) Baso % (Auto) Lymph # (Auto) Glynn # (Auto) Eos # (Auto) Baso # (Auto) Abs Immat Gran (auto) Absolute Neuts (auto) Absolute Nucleated RBC Nucleated RBC % (auto) VBG pH VBG pCO2 VBG pO2 VBG HCO3 VBG O2 Saturation VBG Base Excess Anion Gap Estim Creat Clear Calc Estimated GFR POC Glucose 112 169 H 103 Random Glucose Lactic Acid F/U @ 4Hr Calcium Phosphorus Magnesium Albumin Random Vancomycin 08/17/22 08/17/22 08/17/22 01:31 02:35 03:35 MCV MCH MCHC RDW Plt Count MPV Immature Gran % (Auto) Neut % (Auto) Lymph % (Auto) Glynn % (Auto) Eos % (Auto) Baso % (Auto) Lymph # (Auto) Glynn # (Auto) Eos # (Auto) Baso # (Auto) Abs Immat Gran (auto) Absolute Neuts (auto) Absolute Nucleated RBC Nucleated RBC % (auto) VBG pH VBG pCO2 VBG pO2 VBG HCO3 VBG O2 Saturation VBG Base Excess Anion Gap Estim Creat Clear Calc Estimated GFR POC Glucose 116 H 122 H 94 Random Glucose Lactic Acid F/U @ 4Hr Calcium Phosphorus Magnesium Albumin Random Vancomycin 08/17/22 08/17/22 08/17/22 04:25 04:59 04:59 MCV 94.4 MCH 29.8 MCHC 31.6 RDW 23.4 H Plt Count 216 MPV 11.2 Immature Gran % (Auto) 0.4 Neut % (Auto) 80.0 H Lymph % (Auto) 11.6 L Glynn % (Auto) 6.5 Eos % (Auto) 0.8 Baso % (Auto) 0.7 Lymph # (Auto) 1.6 Glynn # (Auto) 0.9 Eos # (Auto) 0.1 Baso # (Auto) 0.1 Abs Immat Gran (auto) 0.05 H Absolute Neuts (auto) 11.2 H Absolute Nucleated RBC 0.040 H Nucleated RBC % (auto) 0.3 H VBG pH VBG pCO2 VBG pO2 VBG HCO3 VBG O2 Saturation VBG Base Excess Anion Gap 30 H Estim Creat Clear Calc 8.3 Estimated GFR 6 POC Glucose 146 H Random Glucose 111 Lactic Acid F/U @ 4Hr Calcium 9.1 Phosphorus 6.7 H Magnesium 2.2 Albumin 3.1 L Random Vancomycin 08/17/22 08/17/22 08/17/22 04:59 05:23 06:23 MCV MCH MCHC RDW Plt Count MPV Immature Gran % (Auto) Neut % (Auto) Lymph % (Auto) Glynn % (Auto) Eos % (Auto) Baso % (Auto) Lymph # (Auto) Glynn # (Auto) Eos # (Auto) Baso # (Auto) Abs Immat Gran (auto) Absolute Neuts (auto) Absolute Nucleated RBC Nucleated RBC % (auto) VBG pH 7.48 H VBG pCO2 27 VBG pO2 159 VBG HCO3 20 L VBG O2 Saturation 99.0 VBG Base Excess 0.1 Anion Gap Estim Creat Clear Calc Estimated GFR POC Glucose 92 130 H Random Glucose Lactic Acid F/U @ 4Hr Calcium Phosphorus Magnesium Albumin Random Vancomycin 08/17/22 08/17/22 08/17/22 07:30 08:03 11:21 MCV MCH MCHC RDW Plt Count MPV Immature Gran % (Auto) Neut % (Auto) Lymph % (Auto) Glynn % (Auto) Eos % (Auto) Baso % (Auto) Lymph # (Auto) Glynn # (Auto) Eos # (Auto) Baso # (Auto) Abs Immat Gran (auto) Absolute Neuts (auto) Absolute Nucleated RBC Nucleated RBC % (auto) VBG pH VBG pCO2 VBG pO2 VBG HCO3 VBG O2 Saturation VBG Base Excess Anion Gap Estim Creat Clear Calc Estimated GFR POC Glucose 82 77 87 Random Glucose Lactic Acid F/U @ 4Hr Calcium Phosphorus Magnesium Albumin Random Vancomycin 08/17/22 08/17/22 08/17/22 13:16 16:19 17:35 MCV MCH MCHC RDW Plt Count MPV Immature Gran % (Auto) Neut % (Auto) Lymph % (Auto) Glynn % (Auto) Eos % (Auto) Baso % (Auto) Lymph # (Auto) Glynn # (Auto) Eos # (Auto) Baso # (Auto) Abs Immat Gran (auto) Absolute Neuts (auto) Absolute Nucleated RBC Nucleated RBC % (auto) VBG pH VBG pCO2 VBG pO2 VBG HCO3 VBG O2 Saturation VBG Base Excess Anion Gap 24 H Estim Creat Clear Calc 16.7 Estimated GFR 16 POC Glucose 146 H 145 H Random Glucose 147 H Lactic Acid F/U @ 4Hr Calcium 8.8 Phosphorus Magnesium Albumin Random Vancomycin 08/17/22 08/17/22 18:32 18:32 MCV MCH MCHC RDW Plt Count MPV Immature Gran % (Auto) Neut % (Auto) Lymph % (Auto) Glynn % (Auto) Eos % (Auto) Baso % (Auto) Lymph # (Auto) Glynn # (Auto) Eos # (Auto) Baso # (Auto) Abs Immat Gran (auto) Absolute Neuts (auto) Absolute Nucleated RBC Nucleated RBC % (auto) VBG pH VBG pCO2 VBG pO2 VBG HCO3 VBG O2 Saturation VBG Base Excess Anion Gap 21 H Estim Creat Clear Calc 13.6 Estimated GFR 12 POC Glucose Random Glucose 206 H Lactic Acid F/U @ 4Hr Calcium 8.9 Phosphorus Magnesium Albumin Random Vancomycin 13.2 L Imaging Radiologist's Impressions: Impressions Chest X-Ray 08/16/22 14:08 IMPRESSION: 1. New tracheostomy tube in satisfactory position. 2. Hypoexpanded lungs with bilateral prominent pulmonary hilar vascular structures and perihilar haziness suggestive of CHF/congestion. No major change from previous exam except for tracheostomy tube. Assessment and Plan (1) PAD (peripheral artery disease): Status: Acute (2) Ulcer of right lower extremity: Status: Acute Plan 62-year-old female with complicated past medical history including chronic renal failure on hemodialysis, severe peripheral arterial disease with multiple eschars anterior aspect right lower leg. Recommend Xeroform and dry sterile dressings. Follow-up with her vascular specialist, Dr. Nuñez, on discharge and with wound care clinic. Please call the wound care clinic if re-evaluation is needed. Time Spent With Patient Time: Total time managing care of this patient today ____ minutes.
[2022-08-18] VITALS (7 sets, daily range): BP systolic 128–155; BP diastolic 54–88; PULSE 51–62; RESP 14–20; TEMP 36–36.4; O2SAT 92–100
[2022-08-18] MEDS: Heparin Sodium,Porcine 5,000 UNIT/ML VIAL 5000 UNIT SUBCUT ×3 (00:52→17:10)
--- NOTE | 2022-08-18 13:03 | HO.PM.IMPN ---
Subjective Subjective Date of Service: 08/18/22 Interval History: stepped down from ICU yesterday on 28% fiO2 via trach collar denies dyspnea eating OK pain + swelling around wounds on L benítez Review of Systems Review of Systems: Yes all other systems are reviewed and are negative Physical Exam Vital Signs: Vital Signs: Last Vital Signs Temp 97.2 F 08/18/22 11:10 Pulse 60 08/18/22 11:10 Resp 20 08/18/22 11:10 BP 138/64 08/18/22 11:10 Pulse Ox 100 08/18/22 11:10 O2 Del Method Trach Collar 08/18/22 11:10 O2 Flow Rate 5 08/18/22 11:10 FiO2 25 08/18/22 11:10 BMI result Body Mass Index 24.5 Gen: in no acute distress HEENT: sclera anicteric, moist mucus membranes Neck: supple, tracheostomy on collar Lungs: soft insp crackles Heart: regular rate and rhythm, no murmurs Abd: soft, non-tender, non-distended Ext: no edema Skin: L benítez with ulcerations surrounded by erythema + induration, no purulence Neuro: alert, no focal findings Psych: appropriate affect Objective Data Active Medications Albuterol Sulfate (Albuterol Sulfate 90 Mcg 8 Gm Inhaler) 2 puff INHALE RQ6H PRN PRN Reason: shortness of breath or wheezing Amlodipine Besylate (Amlodipine Besylate 10 Mg Tablet) 10 mg PO DAILY [facility]; Protocol Last Admin: 08/18/22 09:07 Dose: 10 mg Documented By: JAVED Aspirin (Aspirin Enteric Coated 81 Mg Tablet.) 81 mg PO DAILY [facility] Last Admin: 08/18/22 09:07 Dose: 81 mg Documented By: JAVED Brimonidine Tartrate (Brimonidine Tartrate 0.2% Oph 5 Ml Bottle) 1 drop EYE-BOTH DAILY [facility] Budesonide (Budesonide 180 Mcg Aer.Pow.Ba) 1 puff INHALE BID [facility] Clopidogrel Bisulfate (Clopidogrel Bisulfate 75 Mg Tablet) 75 mg PO DAILY [facility] Last Admin: 08/18/22 09:07 Dose: 75 mg Documented By: JAVED Dextrose (Dextrose 50 % 25 Gm/50 Ml Syringe) 25 gm IVPUSH Q30M PRN PRN Reason: BG < 70 Last Admin: 08/17/22 05:41 Dose: 25 gm Documented By: SUHA Gabapentin (Gabapentin 100 Mg Capsule) 100 mg PO DAILY [facility] Last Admin: 08/18/22 09:07 Dose: 100 mg Documented By: JAVED Heparin Sodium (Porcine) (Heparin Sodium,Porcine 5,000 Unit/Ml Vial) 5,000 unit SUBCUT Q8H [facility] Last Admin: 08/18/22 09:07 Dose: 5,000 unit Documented By: JAVED Hydromorphone HCl (Hydromorphone Hcl 2 Mg Tablet) 1 mg PO Q6H PRN PRN Reason: severe pain Insulin Glargine (Insulin Glargine,Hum.Rec.Anlog 100 Unit/Ml 10 Ml Vial) 6 unit SUBCUT BEDTIME [facility] Insulin Human Lispro (Insulin Lispro 100 Unit/Ml 3 Ml Vial) 0 unit SUBCUT QIDACHS [facility]; Protocol Last Admin: 08/18/22 12:20 Dose: 4 unit Documented By: JAVED Latanoprost (Latanoprost 0.005 % Ophth Carli 2.5 Ml Drops) 1 drop EYE-BOTH BEDTIME [facility] Levalbuterol HCl (Levalbuterol Hcl 1.25 Mg/3 Ml Vial.Neb) 1.25 mg INHALE BID [facility] Last Admin: 08/18/22 08:44 Dose: 1.25 mg Documented By: SHASHI Levothyroxine Sodium (Levothyroxine Sodium 75 Mcg Tablet) 75 mcg PO DAILY@0600 [facility] Lidocaine (Lidocaine 4 % Patch Adh..Patch) 1 patch TRANSDERMA DAILY [facility] Last Admin: 08/18/22 09:08 Dose: 1 patch Documented By: JAVED Lidocaine HCl (Lidocaine 4 % Cream Kit) 1 appl TOPICAL MOWEFR ONE Stop: 08/19/22 08:17 Morphine Sulfate (Morphine Sulfate 2 Mg/Ml Cartridge) 2 mg IVPUSH Q3H PRN; Protocol PRN Reason: Pain, Moderate(Pain Scale 4-6) Last Admin: 08/18/22 05:49 Dose: 2 mg Documented By: CHRIS Non-Formulary Medication (Sucroferric Oxyhydroxide [Velphoro]) 500 mg PO DAILY PRN PRN Reason: snack Non-Formulary Medication (Sucroferric Oxyhydroxide [Velphoro]) 500 mg PO TID [facility] Omeprazole (Omeprazole/Na Bicarb Oral Susp 20 Mg/10 Ml Ud Cup) 40 mg PO DAILY@0630 [facility] Last Admin: 08/18/22 05:49 Dose: 40 mg Documented By: CHRIS Sevelamer Carbonate (Sevelamer Carbonate Tablet 800 Mg Tablet) 800 mg PO TID [facility] Last Admin: 08/18/22 09:07 Dose: 800 mg Documented By: JAVED Labs 08/18/22 06:27 08/18/22 06:27 Labs: Laboratory Results - last 24 hr 08/17/22 08/17/22 08/17/22 13:16 16:19 17:35 MCV MCH MCHC RDW Plt Count MPV Immature Gran % (Auto) Neut % (Auto) Lymph % (Auto) Wake % (Auto) Eos % (Auto) Baso % (Auto) Lymph # (Auto) Wake # (Auto) Eos # (Auto) Baso # (Auto) Abs Immat Gran (auto) Absolute Neuts (auto) Absolute Nucleated RBC Nucleated RBC % (auto) VBG pH VBG pCO2 VBG pO2 VBG HCO3 VBG O2 Saturation VBG Base Excess Anion Gap 24 H Estim Creat Clear Calc 16.7 Estimated GFR 16 POC Glucose 146 H 145 H Random Glucose 147 H Calcium 8.8 Phosphorus Magnesium Total Bilirubin AST ALT Alkaline Phosphatase Total Protein Albumin Random Vancomycin 08/17/22 08/17/22 08/17/22 18:32 18:32 19:29 MCV MCH MCHC RDW Plt Count MPV Immature Gran % (Auto) Neut % (Auto) Lymph % (Auto) Wake % (Auto) Eos % (Auto) Baso % (Auto) Lymph # (Auto) Wake # (Auto) Eos # (Auto) Baso # (Auto) Abs Immat Gran (auto) Absolute Neuts (auto) Absolute Nucleated RBC Nucleated RBC % (auto) VBG pH VBG pCO2 VBG pO2 VBG HCO3 VBG O2 Saturation VBG Base Excess Anion Gap 21 H Estim Creat Clear Calc 13.6 Estimated GFR 12 POC Glucose 209 H Random Glucose 206 H Calcium 8.9 Phosphorus Magnesium Total Bilirubin AST ALT Alkaline Phosphatase Total Protein Albumin Random Vancomycin 13.2 L 08/18/22 08/18/22 08/18/22 06:27 06:27 06:29 MCV 95.3 MCH 28.7 MCHC 30.1 L RDW 22.8 H Plt Count 233 MPV 11.7 Immature Gran % (Auto) 0.5 H Neut % (Auto) 76.4 H Lymph % (Auto) 13.7 L Wake % (Auto) 7.1 Eos % (Auto) 1.4 Baso % (Auto) 0.9 Lymph # (Auto) 1.5 Wake # (Auto) 0.8 Eos # (Auto) 0.2 Baso # (Auto) 0.1 Abs Immat Gran (auto) 0.05 H Absolute Neuts (auto) 8.4 H Absolute Nucleated RBC 0.020 H Nucleated RBC % (auto) 0.2 VBG pH 7.38 VBG pCO2 41 VBG pO2 54 VBG HCO3 24 VBG O2 Saturation 77.0 VBG Base Excess -0.3 Anion Gap 26 H Estim Creat Clear Calc 10.8 Estimated GFR 9 POC Glucose Random Glucose 143 H Calcium 9.2 Phosphorus 6.4 H Magnesium 2.1 Total Bilirubin 1.0 AST 30 ALT 8 Alkaline Phosphatase 110 Total Protein 6.7 Albumin 3.1 L Random Vancomycin 08/18/22 08/18/22 07:14 11:14 MCV MCH MCHC RDW Plt Count MPV Immature Gran % (Auto) Neut % (Auto) Lymph % (Auto) Wake % (Auto) Eos % (Auto) Baso % (Auto) Lymph # (Auto) Wake # (Auto) Eos # (Auto) Baso # (Auto) Abs Immat Gran (auto) Absolute Neuts (auto) Absolute Nucleated RBC Nucleated RBC % (auto) VBG pH VBG pCO2 VBG pO2 VBG HCO3 VBG O2 Saturation VBG Base Excess Anion Gap Estim Creat Clear Calc Estimated GFR POC Glucose 125 H 210 H Random Glucose Calcium Phosphorus Magnesium Total Bilirubin AST ALT Alkaline Phosphatase Total Protein Albumin Random Vancomycin Microbiology Microbiology Results: Microbiology 08/16/22 15:50 Blood Culture - Preliminary Blood - Venous No growth after 24 hours. 08/16/22 15:41 Blood Culture - Preliminary Blood - Venous No growth after 24 hours. Assessment and Plan (1) Respiratory arrest: Status: Acute Plan d#3 62yo F with aortic stenosis s/p TAVR + PPM 07/23/22, CAD, HFpEF, ESRD on HD, hx CVA, COPD, HLD, HTN, SLOAN< hypothyroidism, vocal cord paralysis s/p tracheostomy presenting with dyspnea admitted to ICU for acute hypoxic resp failure due to volume overload, DKA resolved s/p UF and stepped down to C 08/17/22 # acute hypoxic resp failure due to volume overload/acute-chronic HFpEF - s/p UF, wean O2 as tolerated # ESRD - HD MWF # CAD - DAPT # HTN - amlodipine # COPD not in acute exac - nebulized budesonide, bronchodilators # hypothyroidism - LT4 # infected LLE wound - Wound Care consultation: Cleanse wounds right lower leg daily with wound wash or normal saline, pat dry, apply Xeroform and dry sterile dressing - start doxy + pip-dain # DKA, resolved # DM2 - basal-bolus insulin # VTE ppx: UFH # dispo: TBD In my clinical judgment, the patient requires continued inpatient hospitalization for the following reasons: resp failure, ICU downgrade Time Spent With Patient Time: Total time managing care of this patient today __35__ minutes. Quality Stroke Does the patient have a stroke diagnosis?: No VTE Prior VTE?: No VTE Risk Level:: Medical - moderate - high VTE Device Contraindication: N/A - Device Ordered VTE Drug Contraindication: N/A - Med Ordered
--- NOTE | 2022-08-18 14:50 | P.PNNP_ITS ---
Subjective Subjective Date of Service: 08/18/22 Interval history: Even is noted Physical Exam Vital Signs: Vital Signs: Last Vital Signs Temp 97.2 F 08/18/22 11:10 Pulse 60 08/18/22 11:10 Resp 20 08/18/22 11:10 BP 138/64 08/18/22 11:10 Pulse Ox 100 08/18/22 11:10 O2 Del Method Trach Collar 08/18/22 11:10 O2 Flow Rate 5 08/18/22 11:10 FiO2 25 08/18/22 11:10 BMI result Body Mass Index 24.5 Comfortable Neck is supple ; trach ostomy in place Lung: Air entry equal Heart: S1,S2, normal. No rub Abd: Soft. BS + NS : Alert.No asterexis Ext: No edema Wound in the left leg with eschar - highly suspicious for calciphylaxis Av fistula left arm with Kasi bruit Objective Data Labs 08/18/22 06:27 08/18/22 06:27 Labs: Laboratory Results - last 24 hr 08/17/22 08/17/22 08/17/22 16:19 17:35 18:32 WBC RBC Hgb Hct MCV MCH MCHC RDW Plt Count MPV Immature Gran % (Auto) Neut % (Auto) Lymph % (Auto) [place] % (Auto) Eos % (Auto) Baso % (Auto) Lymph # (Auto) [place] # (Auto) Eos # (Auto) Baso # (Auto) Abs Immat Gran (auto) Absolute Neuts (auto) Absolute Nucleated RBC Nucleated RBC % (auto) VBG pH VBG pCO2 VBG pO2 VBG HCO3 VBG O2 Saturation VBG Base Excess Sodium Potassium Chloride Carbon Dioxide Anion Gap BUN Creatinine Estim Creat Clear Calc Estimated GFR POC Glucose 146 H 145 H Random Glucose Calcium Phosphorus Magnesium Total Bilirubin AST ALT Alkaline Phosphatase Total Protein Albumin Random Vancomycin 13.2 L 08/17/22 08/17/22 08/18/22 18:32 19:29 06:27 WBC 10.9 H RBC 4.08 L Hgb 11.7 L Hct 38.9 MCV 95.3 MCH 28.7 MCHC 30.1 L RDW 22.8 H Plt Count 233 MPV 11.7 Immature Gran % (Auto) 0.5 H Neut % (Auto) 76.4 H Lymph % (Auto) 13.7 L [place] % (Auto) 7.1 Eos % (Auto) 1.4 Baso % (Auto) 0.9 Lymph # (Auto) 1.5 [place] # (Auto) 0.8 Eos # (Auto) 0.2 Baso # (Auto) 0.1 Abs Immat Gran (auto) 0.05 H Absolute Neuts (auto) 8.4 H Absolute Nucleated RBC 0.020 H Nucleated RBC % (auto) 0.2 VBG pH VBG pCO2 VBG pO2 VBG HCO3 VBG O2 Saturation VBG Base Excess Sodium 135 Potassium 4.1 Chloride 95 L Carbon Dioxide 23 Anion Gap 21 H BUN 26 H Creatinine 3.74 H Estim Creat Clear Calc 13.6 Estimated GFR 12 POC Glucose 209 H Random Glucose 206 H Calcium 8.9 Phosphorus Magnesium Total Bilirubin AST ALT Alkaline Phosphatase Total Protein Albumin Random Vancomycin 08/18/22 08/18/22 08/18/22 06:27 06:29 07:14 WBC RBC Hgb Hct MCV MCH MCHC RDW Plt Count MPV Immature Gran % (Auto) Neut % (Auto) Lymph % (Auto) [place] % (Auto) Eos % (Auto) Baso % (Auto) Lymph # (Auto) [place] # (Auto) Eos # (Auto) Baso # (Auto) Abs Immat Gran (auto) Absolute Neuts (auto) Absolute Nucleated RBC Nucleated RBC % (auto) VBG pH 7.38 VBG pCO2 41 VBG pO2 54 VBG HCO3 24 VBG O2 Saturation 77.0 VBG Base Excess -0.3 Sodium 137 Potassium 4.5 Chloride 93 L Carbon Dioxide 23 Anion Gap 26 H BUN 41 H Creatinine 4.71 H* Estim Creat Clear Calc 10.8 Estimated GFR 9 POC Glucose 125 H Random Glucose 143 H Calcium 9.2 Phosphorus 6.4 H Magnesium 2.1 Total Bilirubin 1.0 AST 30 ALT 8 Alkaline Phosphatase 110 Total Protein 6.7 Albumin 3.1 L Random Vancomycin 08/18/22 11:14 WBC RBC Hgb Hct MCV MCH MCHC RDW Plt Count MPV Immature Gran % (Auto) Neut % (Auto) Lymph % (Auto) [place] % (Auto) Eos % (Auto) Baso % (Auto) Lymph # (Auto) [place] # (Auto) Eos # (Auto) Baso # (Auto) Abs Immat Gran (auto) Absolute Neuts (auto) Absolute Nucleated RBC Nucleated RBC % (auto) VBG pH VBG pCO2 VBG pO2 VBG HCO3 VBG O2 Saturation VBG Base Excess Sodium Potassium Chloride Carbon Dioxide Anion Gap BUN Creatinine Estim Creat Clear Calc Estimated GFR POC Glucose 210 H Random Glucose Calcium Phosphorus Magnesium Total Bilirubin AST ALT Alkaline Phosphatase Total Protein Albumin Random Vancomycin Microbiology Microbiology Results: Microbiology 08/16/22 15:50 Blood - Venous Blood Culture - Preliminary No growth after 24 hours. 08/16/22 15:41 Blood - Venous Blood Culture - Preliminary No growth after 24 hours. Procedures Date of Service Date of Service: 08/18/22 Assessment & Plan Assessment and plan (1) ESRD (end stage renal disease) on dialysis: Status: Acute Plan 62-year-old man with multiple medical problems with ESRD. Continue hemodialysis 3 times a week. No overt sinus symptoms of anemia. Next dialysis will be tomorrow. Right leg wound. Scabbing with Eschar Highly suspicious for calciphylaxis. Recommend a biopsy and she will require sodium thiosulfate. Keep on phosphate binders Follow-up calcium, phosphorus, intact PTH. Time Spent With Patient Time: Total time managing care of this patient today ____ minutes. Progress Note: Quality Stroke Does the patient have a stroke diagnosis?: No
[2022-08-19] VITALS (9 sets, daily range): BP systolic 123–163; BP diastolic 61–90; PULSE 53–66; RESP 16–20; TEMP 35.7–36.9; O2SAT 91–100
[2022-08-19] MEDS: Heparin Sodium,Porcine 5,000 UNIT/ML VIAL 5000 UNIT SUBCUT ×3 (00:20→16:32)
[2022-08-19 06:20] LABS: Anion Gap 24 (12-20); Blood Urea Nitrogen 57 mg/dL (9-16); Calcium 8.5 mg/dL (8.4-10.2); Carbon Dioxide 21 mmol/L (22-29); Chloride 95 mmol/L (96-108); Creatinine Clr Calc Pharmacy 8.4; Estimated Glomerular Filt Rate 7; Glucose Random 175 mg/dL (60-115); Sodium 136 mmol/L (135-145)
[2022-08-19 08:23] LABS: C Reactive Protein 4.88 mg/dL (< or = 0.50)
--- NOTE | 2022-08-19 10:53 | HO.PM.IMPN ---
Subjective Subjective Date of Service: 08/19/22 Interval History: wounds improved no dyspnea to HD today Review of Systems Review of Systems: Yes all other systems are reviewed and are negative Physical Exam Vital Signs: Vital Signs: Last Vital Signs Temp 97.2 F 08/19/22 10:47 Pulse 63 08/19/22 10:47 Resp 20 08/19/22 10:47 BP 163/78 H 08/19/22 10:47 Pulse Ox 92 08/19/22 10:47 O2 Del Method Trach Collar 08/19/22 10:47 O2 Flow Rate 5 08/19/22 10:47 FiO2 28 08/19/22 10:47 BMI result Body Mass Index 24.5 Gen: in no acute distress HEENT: sclera anicteric, moist mucus membranes Neck: supple, tracheostomy on collar Lungs: clear bilaterally Heart: regular rate and rhythm, no murmurs Abd: soft, non-tender, non-distended Ext: no edema Skin: L benítez with ulcerations, no purulence, surrounding erythema improved Neuro: alert, no focal findings Psych: appropriate affect Objective Data Active Medications Albuterol Sulfate (Albuterol Sulfate 90 Mcg 8 Gm Inhaler) 2 puff INHALE RQ6H PRN PRN Reason: shortness of breath or wheezing Amlodipine Besylate (Amlodipine Besylate 10 Mg Tablet) 10 mg PO DAILY [facility]; Protocol Last Admin: 08/18/22 09:07 Dose: 10 mg Documented By: JAVED Aspirin (Aspirin Enteric Coated 81 Mg Tablet.) 81 mg PO DAILY [facility] Last Admin: 08/18/22 09:07 Dose: 81 mg Documented By: JAVED Brimonidine Tartrate (Brimonidine Tartrate 0.2% Oph 5 Ml Bottle) 1 drop EYE-BOTH DAILY [facility] Last Admin: 08/18/22 15:28 Dose: 1 drop Documented By: JAVED Clopidogrel Bisulfate (Clopidogrel Bisulfate 75 Mg Tablet) 75 mg PO DAILY [facility] Last Admin: 08/18/22 09:07 Dose: 75 mg Documented By: JAVED Dextrose (Dextrose 50 % 25 Gm/50 Ml Syringe) 25 gm IVPUSH Q30M PRN PRN Reason: BG < 70 Last Admin: 08/17/22 05:41 Dose: 25 gm Documented By: SUHA Gabapentin (Gabapentin 100 Mg Capsule) 100 mg PO DAILY [facility] Last Admin: 08/18/22 09:07 Dose: 100 mg Documented By: JAVED Heparin Sodium (Porcine) (Heparin Sodium,Porcine 5,000 Unit/Ml Vial) 5,000 unit SUBCUT Q8H [facility] Last Admin: 08/19/22 00:20 Dose: 5,000 unit Documented By: RODGER Hydromorphone HCl (Hydromorphone Hcl 2 Mg Tablet) 1 mg PO Q6H PRN PRN Reason: severe pain Last Admin: 08/19/22 08:33 Dose: 1 mg Documented By: JAVED Piperacillin Sod/Tazobactam (Sod 2.25 gm/ Sodium Chloride) 50 mls @ 100 mls/hr IV Q8H [facility] Last Infusion: 08/18/22 23:58 Dose: 0 mls/hr Documented By: RODGER Doxycycline Hyclate 100 mg/ (Sodium Chloride) 250 mls @ 166.67 mls/hr IV Q12H [facility] Last Infusion: 08/19/22 01:55 Dose: 0 mls/hr Documented By: RODGER Insulin Glargine (Insulin Glargine,Hum.Rec.Anlog 100 Unit/Ml 10 Ml Vial) 6 unit SUBCUT BEDTIME [facility] Last Admin: 08/18/22 21:10 Dose: 6 unit Documented By: RODGER Insulin Human Lispro (Insulin Lispro 100 Unit/Ml 3 Ml Vial) 0 unit SUBCUT QIDACHS [facility]; Protocol Last Admin: 08/19/22 10:34 Dose: Not Given Documented By: JAVED Non-Admin Reason: in dilalysis Latanoprost (Latanoprost 0.005 % Ophth Carli 2.5 Ml Drops) 1 drop EYE-BOTH BEDTIME [facility] Last Admin: 08/18/22 21:10 Dose: 1 drop Documented By: RODGER Levalbuterol HCl (Levalbuterol Hcl 1.25 Mg/3 Ml Vial.Neb) 1.25 mg INHALE BID [facility] Last Admin: 08/19/22 07:50 Dose: Not Given Documented By: SHASHI Non-Admin Reason: Off unit: Dialysis Levothyroxine Sodium (Levothyroxine Sodium 75 Mcg Tablet) 75 mcg PO DAILY@0600 [facility] Last Admin: 08/19/22 05:49 Dose: 75 mcg Documented By: RODGER Lidocaine (Lidocaine 4 % Patch Adh..Patch) 1 patch TRANSDERMA DAILY [facility] Last Admin: 08/18/22 09:08 Dose: 1 patch Documented By: JAVED Morphine Sulfate (Morphine Sulfate 2 Mg/Ml Cartridge) 2 mg IVPUSH Q3H PRN; Protocol PRN Reason: Pain, Moderate(Pain Scale 4-6) Last Admin: 08/18/22 05:49 Dose: 2 mg Documented By: CHRIS Non-Formulary Medication (Sucroferric Oxyhydroxide [Velphoro]) 500 mg PO DAILY PRN PRN Reason: snack Non-Formulary Medication (Sucroferric Oxyhydroxide [Velphoro]) 500 mg PO TID [facility] Non-Formulary Medication (Budesonide) 0.25 mg INHALE BID [facility] Omeprazole (Omeprazole/Na Bicarb Oral Susp 20 Mg/10 Ml Ud Cup) 40 mg PO DAILY@0630 [facility] Last Admin: 08/19/22 05:49 Dose: 40 mg Documented By: RODGER Sevelamer Carbonate (Sevelamer Carbonate Tablet 800 Mg Tablet) 800 mg PO TID [facility] Last Admin: 08/18/22 21:11 Dose: 800 mg Documented By: RODGER Labs 08/19/22 05:14 08/19/22 05:14 Labs: Laboratory Results - last 24 hr 08/18/22 08/18/22 08/18/22 11:14 15:42 19:39 MCV MCH MCHC RDW Plt Count MPV Absolute Nucleated RBC Nucleated RBC % (auto) Anion Gap Estim Creat Clear Calc Estimated GFR POC Glucose 210 H 162 H 137 H Random Glucose Calcium C-Reactive Protein 08/19/22 08/19/22 05:14 05:14 MCV 95.1 MCH 29.1 MCHC 30.6 L RDW 22.0 H Plt Count 228 MPV 12.3 Absolute Nucleated RBC 0.000 Nucleated RBC % (auto) 0.0 Anion Gap 24 H Estim Creat Clear Calc 8.4 Estimated GFR 7 POC Glucose Random Glucose 175 H Calcium 8.5 D C-Reactive Protein 4.88 H Microbiology Microbiology Results: Microbiology 08/16/22 15:50 Blood Culture - Preliminary Blood - Venous No growth after 48 hours. 08/16/22 15:41 Blood Culture - Preliminary Blood - Venous No growth after 48 hours. Assessment and Plan (1) Respiratory arrest: Status: Acute Plan d#3 62yo F with aortic stenosis s/p TAVR + PPM 07/23/22, CAD, HFpEF, ESRD on HD, hx CVA, COPD, HLD, HTN, SLOAN, hypothyroidism, vocal cord paralysis s/p tracheostomy presenting with dyspnea admitted to ICU for acute hypoxic resp failure due to volume overload, DKA resolved s/p UF and stepped down to [facility] [place] 08/17/22 # acute hypoxic resp failure due to volume overload/acute-chronic HFpEF - s/p UF, wean O2 as tolerated - TTE 08/17/22 - Normal left ventricular cavity size.? There is severely? increased left ventricular wall thickness.? The left ventricular systolic function is low normal.? The visually estimated ejection fraction is between 50-55%.? - Moderately increased right ventricular cavity size.? There is? moderate to severely decreased right ventricular systolic? function.? - The left atrium is severely dilated.? The right atrium is? ? ? moderately dilated.? - A bioprosthetic aortic valve is present.? The prosthetic aortic valve appears to be functioning normally.? - There is severe mitral annular calcification.? There is mild to moderate mitral valve regurgitation.? There is moderate mitral ? valve stenosis.? The mean mitral valve gradient is 7.00 mmHg.? ? - Significantly elevated right atrial pressure.? Mild pulmonary? hypertension is present.? ? # infected LLE wound - Wound Care consultation: Cleanse wounds right lower leg daily with wound wash or normal saline, pat dry, apply Xeroform and dry sterile dressing - d#2 doxy + pip-dain # ESRD - HD MWF # CAD - DAPT # HTN - amlodipine # COPD not in acute exac - nebulized budesonide, bronchodilators # hypothyroidism - LT4 # DKA, resolved # DM2 - basal-bolus insulin # VTE ppx: UFH # dispo: TBD In my clinical judgment, the patient requires continued inpatient hospitalization for the following reasons: IV ABX Time Spent With Patient Time: Total time managing care of this patient today __35__ minutes. Quality Stroke Does the patient have a stroke diagnosis?: No VTE Prior VTE?: No VTE Risk Level:: Medical - moderate - high VTE Device Contraindication: N/A - Device Ordered VTE Drug Contraindication: N/A - Med Ordered
--- NOTE | 2022-08-19 11:20 | PM.PNNEP ---
Subjective Subjective Date of Service: 08/19/22 Interval history: wounds improved no dyspnea Seen on Hd HD today Physical Exam Vital Signs: Vital Signs: Last Vital Signs Temp 97.2 F 08/19/22 10:47 Pulse 63 08/19/22 10:47 Resp 20 08/19/22 10:47 BP 163/78 H 08/19/22 10:47 Pulse Ox 92 08/19/22 10:47 O2 Del Method Trach Collar 08/19/22 10:47 O2 Flow Rate 5 08/19/22 10:47 FiO2 28 08/19/22 10:47 BMI result Body Mass Index 24.5 Comfortable Neck is supple ; trach ostomy in place Lung: Air entry equal Heart: S1,S2, normal. No rub Abd: Soft. BS + NS : Alert.No asterexis Ext: No edema Wound in the left leg with eschar - highly suspicious for calciphylaxis Av fistula left arm with Kasi bruit Objective Data Labs 08/19/22 05:14 08/19/22 05:14 Labs: Laboratory Results - last 24 hr 08/18/22 08/18/22 08/18/22 11:14 15:42 19:39 WBC RBC Hgb Hct MCV MCH MCHC RDW Plt Count MPV Absolute Nucleated RBC Nucleated RBC % (auto) Sodium Potassium Chloride Carbon Dioxide Anion Gap BUN Creatinine Estim Creat Clear Calc Estimated GFR POC Glucose 210 H 162 H 137 H Random Glucose Calcium C-Reactive Protein 08/19/22 08/19/22 08/19/22 05:14 05:14 10:45 WBC 8.6 RBC 3.68 L Hgb 10.7 L Hct 35.0 L MCV 95.1 MCH 29.1 MCHC 30.6 L RDW 22.0 H Plt Count 228 MPV 12.3 Absolute Nucleated RBC 0.000 Nucleated RBC % (auto) 0.0 Sodium 136 Potassium 4.0 Chloride 95 L Carbon Dioxide 21 L Anion Gap 24 H BUN 57 H Creatinine 6.05 H* Estim Creat Clear Calc 8.4 Estimated GFR 7 POC Glucose 130 H Random Glucose 175 H Calcium 8.5 D C-Reactive Protein 4.88 H Microbiology Microbiology Results: Microbiology 08/16/22 15:50 Blood - Venous Blood Culture - Preliminary No growth after 48 hours. 08/16/22 15:41 Blood - Venous Blood Culture - Preliminary No growth after 48 hours. Procedures Date of Service Date of Service: 08/19/22 Assessment & Plan Assessment and plan (1) ESRD (end stage renal disease) on dialysis: Status: Acute Plan 62-year-old man with multiple medical problems with ESRD. Continue hemodialysis 3 times a week. No overt sinus symptoms of anemia. Next dialysis will be tomorrow. Right leg wound. Scabbing with Eschar Highly suspicious for calciphylaxis. Recommend a biopsy and she will require sodium thiosulfate. Can be done as out pt Keep on phosphate binders Follow-up calcium, phosphorus, intact PTH. Time Spent With Patient Time: Total time managing care of this patient today ____ minutes. Progress Note: Quality Stroke Does the patient have a stroke diagnosis?: No
--- NOTE | 2022-08-19 13:29 | MHC.CM.PN ---
EMR reviewed and per MD rounds, pt is not medically cleared for D/C, PT eval pending, referrals sent to a few SNF's who are following for D/C. CM will continue to monitor.
--- NOTE | 2022-08-19 18:05 | PC.NURSE ---
Pt. now compliant with wound dressing. Cleansed would with wound spray, dried and applied xeroform followed by gauze and wrapped in gauze roll.
[2022-08-20] VITALS (9 sets, daily range): BP systolic 116–152; BP diastolic 62–72; PULSE 56–64; RESP 16–20; TEMP 36.2–36.9; O2SAT 90–100
[2022-08-20] MEDS: Heparin Sodium,Porcine 5,000 UNIT/ML VIAL 5000 UNIT SUBCUT ×2 (07:43→17:38)
--- NOTE | 2022-08-20 10:43 | PM.DS ---
DS: Providers Provider Date of Service: 08/20/22 Date of admission: 08/16/22 16:48 Date of discharge: 08/20/22 Primary care physician: Mason Lopez MD Consults: 08/16/22 16:45 Consult to Nephrology Stat Consulting Provider: [facility] Reason for consultation: Additional hemodialysis for pulmonary edema Has provider been notified: No 08/16/22 22:00 Consult to Wound Care Routine Consulting Provider: [facility] [place] Wound Care Management Reason for consultation: RLE ulcer Has provider been notified: No DS: Diagnosis Discharge Diagnosis (1) ESRD (end stage renal disease) on dialysis: Status: Acute (2) Acute on chronic respiratory failure with hypoxia: Status: Acute (3) Tracheostomy in place: Status: Acute (4) Acute on chronic heart failure with preserved ejection fraction (HFpEF): Status: Acute (5) DKA (diabetic ketoacidosis): Status: Acute (6) Peripheral vascular disease of lower extremity with ulceration: Status: Acute (7) Wound infection: Status: Acute DS: Summary Hospital Course Hospital Course: from admission H+P by supervisory air intercept controller Tracie Barrow NP, 08/16/22: Ms. Olmstead is a 62-year-old? [id number] female with a history?anemia, aortic stenosis, HF with preserved EF, COPD, CVA, ESRD on HD (M/W/F), HLD, HTN, hypothyroid, SLOAN, vocal cord paralysis s/p tracheostomy, CAD s/p TAVR and pacemaker placement at [facility] on 07/23/2022 who presented to the ER with complaint of chest pain, increasing shortness of breath/dyspnea and increasing agitation since this morning. On arrival to the? emergency room,?her blood pressure was 177/90, heart rate 79,Temp 97.2?, SpO2 90% on to room air.? Laboratory data significant for WBC 12.3, potassium 5.3, CO2 19, BUN 51, creatinine 6.28, glucose 271, lactic acid 3.3, troponin 78.3, BNP 96535, beta hydroxybutyrate 0.32.? VBG showed? pH 7.30, pCO2 40, PO2 90, HC03 20. The patient is anuric. Imaging:?[facility] down, paper readings -- cardiomegaly with bilateral disease. ?Pulmonary edema of cardiogenic or noncardiogenic etiology ED COURSE: Tracheostomy was changed from an uncuffed to a Shiley adult flexible tracheostomy cuffed tube ([id number]) 8.5 mm internal diameter, 12.2 mm outer diameter tube.? She was put on a ventilator with AC settings.? She was given 2 mg of morphine and treated empirically with cefepime. Ms Olmstead is a 62yo F with aortic stenosis s/p TAVR + PPM 07/23/22, CAD, HFpEF, ESRD on HD, hx CVA, COPD, HLD, HTN, SLOAN, hypothyroidism, vocal cord paralysis s/p tracheostomy' presenting with dyspnea and admitted to ICU for acute hypoxic resp failure due to volume overload, DKA; resolved s/p UF and stepped down to IMC 08/17/22. Post-ICU course by problem: # acute hypoxic resp failure due to volume overload/acute-chronic HFpEF - s/p UF, weaned to trach collar then to room air - TTE 08/17/22: - Normal left ventricular cavity size.? There is severely? increased left ventricular wall thickness.? The left ventricular systolic function is low normal.? The visually estimated ejection fraction is between 50-55%.? - Moderately increased right ventricular cavity size.? There is? moderate to severely decreased right ventricular systolic? function.? - The left atrium is severely dilated.? The right atrium is? ? ? moderately dilated.? - A bioprosthetic aortic valve is present.? The prosthetic aortic valve appears to be functioning normally.? - There is severe mitral annular calcification.? There is mild to moderate mitral valve regurgitation.? There is moderate mitral ? valve stenosis.? The mean mitral valve gradient is 7.00 mmHg.? ? - Significantly elevated right atrial pressure.? Mild pulmonary? hypertension is present.? ? # infected LLE wound - Wound Care consultation: Cleanse wounds right lower leg daily with wound wash or normal saline, pat dry, apply Xeroform and dry sterile dressing - given 3 days of IV doxy + pip-dain, change to doxy + amox-clav [renally dose the later] for 7 days upon discharge - outpt f/u with her vascular surgeon Dr Nuñez as well as with [facility] Wound Care # ESRD - HD MWF continued Discharged home with VNA services. Time Spent with Patient Time attestation: Total time managing care of this patient today ___45_ minutes. Discharge coordination time: Greater than 30 minutes Quality: Safe Use of Opioids Does Pt have an Active Cancer Diagnosis on the Problem List?: No Quality: Stroke Does the patient have a stroke diagnosis?: No Physical Exam Vital Signs: Vital Signs: Last Vital Signs Temp 98.2 F 08/20/22 07:09 Pulse 60 08/20/22 07:09 Resp 20 08/20/22 07:09 BP 152/72 H 08/20/22 07:09 Pulse Ox 100 08/20/22 07:09 O2 Del Method Trach Collar 08/20/22 07:09 O2 Flow Rate 5 08/20/22 07:09 FiO2 28 08/20/22 07:09 BMI result Body Mass Index 24.5 Gen: in no acute distress HEENT: sclera anicteric, moist mucus membranes Neck: supple, tracheostomy on room air Lungs: clear bilaterally Heart: regular rate and rhythm, no murmurs Abd: soft, non-tender, non-distended Ext: no edema Skin: L benítze with ulcerations, no purulence, surrounding erythema improved Neuro: alert, no focal findings Psych: appropriate affect DS: Data Data Completed and Pending Completed studies during hospitalization [Text1]: ?TTE 08/17/22 - Normal left ventricular cavity size.? There is severely? increased left ventricular wall thickness.? The left ventricular systolic function is low normal.? The visually estimated ejection fraction is between 50-55%.? - Moderately increased right ventricular cavity size.? There is? moderate to severely decreased right ventricular systolic? function.? - The left atrium is severely dilated.? The right atrium is? ? ? moderately dilated.? - A bioprosthetic aortic valve is present.? The prosthetic aortic valve appears to be functioning normally.? - There is severe mitral annular calcification.? There is mild to moderate mitral valve regurgitation.? There is moderate mitral ? valve stenosis.? The mean mitral valve gradient is 7.00 mmHg.? ? - Significantly elevated right atrial pressure.? Mild pulmonary? hypertension is present.? ? Laboratory Results WBC 8.6 X10*3/uL (4.8-10.8) 08/19/22 05:14 RBC 3.68 X10*6/uL (4.20-5.50) L 08/19/22 05:14 Hgb 10.7 g/dl (12.0-16.0) L 08/19/22 05:14 Hct 35.0 % (37.0-47.0) L 08/19/22 05:14 MCV 95.1 fL (80.0-98.0) 08/19/22 05:14 MCH 29.1 pg (27.0-33.0) 08/19/22 05:14 MCHC 30.6 g/dl (31.0-35.0) L 08/19/22 05:14 RDW 22.0 % (11.0-16.0) H 08/19/22 05:14 Plt Count 228 X10*3/uL (160-400) 08/19/22 05:14 MPV 12.3 fL (9.4-12.3) 08/19/22 05:14 Immature Gran % (Auto) 0.5 % (0.0-0.4) H 08/18/22 06:27 Neut % (Auto) 76.4 % (45-73) H 08/18/22 06:27 Lymph % (Auto) 13.7 % (20-40) L 08/18/22 06:27 Bates % (Auto) 7.1 % (2-11) 08/18/22 06:27 Eos % (Auto) 1.4 % (0-4) 08/18/22 06:27 Baso % (Auto) 0.9 % (0-2) 08/18/22 06:27 Lymph # (Auto) 1.5 X10*3/uL (1.2-4.9) 08/18/22 06:27 Bates # (Auto) 0.8 X10*3/uL (0.1-1.2) 08/18/22 06:27 Eos # (Auto) 0.2 X10*3/uL (0.0-0.4) 08/18/22 06:27 Baso # (Auto) 0.1 X10*3/uL (0.0-0.2) 08/18/22 06:27 Abs Immat Gran (auto) 0.05 X10*3/uL (0.00-0.03) H 08/18/22 06:27 Absolute Neuts (auto) 8.4 x10*3/uL (2.0-8.3) H 08/18/22 06:27 Absolute Nucleated RBC 0.000 X10*3/uL (0.0-0.012) 08/19/22 05:14 Nucleated RBC % (auto) 0.0 /100WBC (0.0-0.2) 08/19/22 05:14 PT 13.5 SEC (10.0-13.1) H 08/16/22 14:08 INR 1.2 (0.9-1.1) H 08/16/22 14:08 APTT 37.4 SEC (26.0-36.4) H 08/16/22 14:08 VBG pH 7.38 (7.32-7.43) 08/18/22 06:29 VBG pCO2 41 mmHg 08/18/22 06:29 VBG pO2 54 mmHg 08/18/22 06:29 VBG HCO3 24 mmol/L (22-26) 08/18/22 06:29 VBG O2 Saturation 77.0 % 08/18/22 06:29 VBG Base Excess -0.3 mmol/L 08/18/22 06:29 Sodium 136 mmol/L (135-145) 08/19/22 05:14 Potassium 4.0 mmol/L (3.3-5.1) 08/19/22 05:14 Chloride 95 mmol/L (96-108) L 08/19/22 05:14 Carbon Dioxide 21 mmol/L (22-29) L 08/19/22 05:14 Anion Gap 24 (12-20) H 08/19/22 05:14 BUN 57 mg/dL (9-16) H 08/19/22 05:14 Creatinine 6.05 mg/dL (0.5-1.4) H* 08/19/22 05:14 Estim Creat Clear Calc 8.4 08/19/22 05:14 Estimated GFR 7 08/19/22 05:14 POC Glucose 172 mg/dL (60-115) H 08/21/22 10:48 Random Glucose 175 mg/dL (60-115) H 08/19/22 05:14 Lactic Acid 3.3 mmol/L (0.5-2.0) H* 08/16/22 15:41 Lactic Acid F/U @ 2Hr 2.3 mmol/L (0.5-2.0) H* 08/16/22 18:21 Lactic Acid F/U @ 4Hr 2.4 mmol/L (0.5-2.0) H* 08/16/22 21:01 Calcium 8.5 mg/dL (8.4-10.2) D 08/19/22 05:14 Phosphorus 6.4 mg/dL (2.7-4.5) H 08/18/22 06:27 Magnesium 2.1 mg/dL (1.6-2.6) 08/18/22 06:27 Total Bilirubin 1.0 mg/dL (0.0-1.0) 08/18/22 06:27 AST 30 U/L (5-31) 08/18/22 06:27 ALT 8 U/L (0-31) 08/18/22 06:27 Alkaline Phosphatase 110 U/L (39-117) 08/18/22 06:27 Ammonia 40 umol/L (13-55) 08/16/22 15:41 Troponin I High Sens 74.1 ng/L (<3.5-17.0) H* 08/16/22 18:21 C-Reactive Protein 4.88 mg/dL (< or = 0.50) H 08/19/22 05:14 B-Natriuretic Peptide 75043 pg/mL (<100) H 08/16/22 15:41 Total Protein 6.7 g/dL (6.5-8.0) 08/18/22 06:27 Albumin 3.1 g/dL (3.5-5.0) L 08/18/22 06:27 Beta-Hydroxybutyrate 0.32 mmol/L (0.02-0.27) H 08/16/22 15:41 Random Vancomycin 13.2 mcg/mL (15-20) L 08/17/22 18:32 Influenza Type A (PCR) NEGATIVE (Negative) 08/16/22 14:08 Influenza Type B (PCR) NEGATIVE (Negative) 08/16/22 14:08 RSV RNA Qual (PCR) NEGATIVE (Negative) 08/16/22 14:08 SARS-CoV-2 RNA (RT-PCR) NEGATIVE (Negative) 08/16/22 14:08 Impressions Chest X-Ray 08/16/22 14:08 IMPRESSION: 1. New tracheostomy tube in satisfactory position. 2. Hypoexpanded lungs with bilateral prominent pulmonary hilar vascular structures and perihilar haziness suggestive of CHF/congestion. No major change from previous exam except for tracheostomy tube. Discharge Plan Discharge Anticipated Discharge Date/Time: 08/20/22 14:33 Patient Disposition: Home Health Service Discharge Diagnosis: # acute hypoxic resp failure due to volume overload/acute-chronic HFpEF # infected LLE wound # ESRD on HD Referrals: [facility] [place] Wound Care Management [Provider Group] - 1 Week Pipo Nuñez MD [Physician] - 2 Weeks Po,Mason Casarez MD [Primary Care Provider] - 1 Week Discharge Medications: New doxycycline monohydrate 100 mg tablet 100 mg PO BID Qty: 14 0RF amoxicillin-pot clavulanate 500-125 mg tablet 1 tab PO BID Qty: 14 0RF Continued (DME) pen needle, diabetic [Comfort EZ Pen Paris] 31 gauge x 5/16 needle See Rx Instructions .Route Qty: 100 5RF Rx Instructions: uses 4X/day (DME) pen needle, diabetic [BD Ultra-Fine Mini Pen Needle] 31 gauge x 3/16 needle See Rx Instructions .ROUTE .MEDSUPPLY Qty: 100 11RF Rx Instructions: As directed (DME) Hospital bed See Rx Instructions .Route .MEDSUPPLY Qty: 1 0RF Rx Instructions: As directed (DME) Shower Chair See Rx Instructions .Route .MEDSUPPLY Qty: 1 0RF Rx Instructions: As directed levalbuterol HCl 1.25 mg/3 mL solution for nebulization 1.25 mg inhalation BID Qty: 540 0RF lidocaine [Lidoderm] 5 % adhesive patch,medicated 1 patch topical DAILY Qty: 15 0RF Rx Instructions: leave on most painful area for up to 12 hrs (DME) pen needle, diabetic [BD Ultra-Fine Nelli Pen Needle] 32 gauge x 5/32 needle See Rx Instructions .Route Qty: 50 5RF Rx Instructions: As directed (DME) FreeStyle Rusty 2 Ennice Misc See Rx Instructions .Route Qty: 1 0RF Rx Instructions: As directed sevelamer carbonate 800 mg tablet 800 mg PO TID levothyroxine 75 mcg tablet 75 mcg PO DAILY@0600 brimonidine 0.2 % drops 1 drp ophthalmic (eye) DAILY clopidogrel 75 mg tablet 75 mg PO DAILY lidocaine-prilocaine 2.5-2.5 % cream 1 appl topical MOWEFR PRN (Reason: fistula pain) Rx Instructions: 1-2 HOURS BEFORE DIALYSIS hydromorphone 2 mg tablet 1 mg PO Q6H PRN (Reason: severe pain) amlodipine 5 mg tablet 10 mg PO DAILY Protocol: Hold for SBP< HOLD for SBP < : 90 insulin aspart U-100 [Novolog FlexPen U-100 Insulin] 100 unit/mL (3 mL) insulin pen 1 sliding scale dose subcut TIDAC insulin glargine [Lantus Solostar U-100 Insulin] 100 unit/mL (3 mL) insulin pen 6 unit subcut BEDTIME Baqsimi 3 mg/actuation spray,non-aerosol 3 mg intranasal ONCE PRN (Reason: Hypoglycemia) Velphoro 500 mg tablet,chewable 500 mg PO TID Velphoro 500 mg tablet,chewable 500 mg PO DAILY PRN (Reason: snack) budesonide 0.25 mg/2 mL suspension for nebulization 0.25 mg inhalation BID (DME) FreeStyle Lite Strips Strip See Rx Instructions .ROUTE .MEDSUPPLY Qty: 300 3RF Rx Instructions: As directed [place] [place] FreeStyle Rusty 14 Day Sensor Kit See Rx Instructions .ROUTE .MEDSUPPLY Qty: 6 3RF Rx Instructions: As directed [place] AUTO PAP PS6-20 CM h20 humidified AIR See Rx Instructions .Route .MEDSUPPLY Qty: 1 0RF Rx Instructions: As directed gabapentin 100 mg capsule 100 mg PO DAILY albuterol sulfate 90 mcg/actuation HFA aerosol inhaler 2 inh inhalation Q6H PRN (Reason: shortness of breath or wheezing) 30 Days Qty: 18 12RF latanoprost 0.005 % drops 1 drp ophthalmic (eye) BEDTIME aspirin [Adult Aspirin Regimen] 81 mg tablet,delayed release (DR/EC) 81 mg PO DAILY Discharge Orders: Discharge Order (Routine); Ordered 08/21/22 Ordered By: Vaughn Oakley Diet: Diabetic diet Activity on Discharge: As tolerated Stand Alone Forms: Patient Portal Discharge page Care Plan Goals: respiratory health treatment of wound infection Health Concerns: # acute hypoxic resp failure due to volume overload/acute-chronic HFpEF # infected LLE wound # ESRD on HD Plan of Treatment: antibiotics: amoxicillin-clavulanate 500-125 mg twice daily PLUS doxycycline monohydrate 100 mg twice daily for total 7 days follow up with your vascular surgeon Dr Donald Nuñez as well as the [facility] [place] Wound Care Clinic wound care instructions: Cleanse wounds right lower leg daily with wound wash or normal saline, pat dry, apply Xeroform and dry sterile dressing continue dialysis MWF Please follow up with your primary care doctor within 1 week. Return to the hospital if you experience recurrent or worsening symptoms. Assessment: See Discharge Summary.
--- NOTE | 2022-08-20 10:48 | HO.PM.IMPN ---
Subjective Subjective Date of Service: 08/20/22 Interval History: wound pain/redness improving no dyspnea Review of Systems Review of Systems: Yes all other systems are reviewed and are negative Physical Exam Vital Signs: Vital Signs: Last Vital Signs Temp 98.2 F 08/20/22 07:09 Pulse 60 08/20/22 07:09 Resp 20 08/20/22 07:09 BP 152/72 H 08/20/22 07:09 Pulse Ox 100 08/20/22 07:09 O2 Del Method Trach Collar 08/20/22 07:09 O2 Flow Rate 5 08/20/22 07:09 FiO2 28 08/20/22 07:09 BMI result Body Mass Index 24.5 Gen: in no acute distress HEENT: sclera anicteric, moist mucus membranes Neck: supple, tracheostomy on collar Lungs: clear bilaterally Heart: regular rate and rhythm, no murmurs Abd: soft, non-tender, non-distended Ext: no edema Skin: L benítez with ulcerations, no purulence, surrounding erythema improved Neuro: alert, no focal findings Psych: appropriate affect Objective Data Active Medications Albuterol Sulfate (Albuterol Sulfate 90 Mcg 8 Gm Inhaler) 2 puff INHALE RQ6H PRN PRN Reason: shortness of breath or wheezing Amlodipine Besylate (Amlodipine Besylate 10 Mg Tablet) 10 mg PO DAILY [facility]; Protocol Last Admin: 08/20/22 07:42 Dose: 10 mg Documented By: GABINO Aspirin (Aspirin Enteric Coated 81 Mg Tablet.) 81 mg PO DAILY [facility] Last Admin: 08/20/22 07:42 Dose: 81 mg Documented By: GABINO Brimonidine Tartrate (Brimonidine Tartrate 0.2% Oph 5 Ml Bottle) 1 drop EYE-BOTH DAILY [facility] Last Admin: 08/20/22 08:13 Dose: 1 drop Documented By: GABINO Clopidogrel Bisulfate (Clopidogrel Bisulfate 75 Mg Tablet) 75 mg PO DAILY [facility] Last Admin: 08/20/22 07:43 Dose: 75 mg Documented By: GABINO Dextrose (Dextrose 50 % 25 Gm/50 Ml Syringe) 25 gm IVPUSH Q30M PRN PRN Reason: BG < 70 Last Admin: 08/17/22 05:41 Dose: 25 gm Documented By: SUHA Gabapentin (Gabapentin 100 Mg Capsule) 100 mg PO DAILY [facility] Last Admin: 08/20/22 07:42 Dose: 100 mg Documented By: GABINO Heparin Sodium (Porcine) (Heparin Sodium,Porcine 5,000 Unit/Ml Vial) 5,000 unit SUBCUT Q8H [facility] Last Admin: 08/20/22 07:43 Dose: 5,000 unit Documented By: GABINO Hydromorphone HCl (Hydromorphone Hcl 2 Mg Tablet) 1 mg PO Q6H PRN PRN Reason: severe pain Last Admin: 08/19/22 16:31 Dose: 1 mg Documented By: JAVED Piperacillin Sod/Tazobactam (Sod 2.25 gm/ Sodium Chloride) 50 mls @ 100 mls/hr IV Q8H [facility] Last Infusion: 08/20/22 09:20 Dose: 0 mls/hr Documented By: GABINO Doxycycline Hyclate 100 mg/ (Sodium Chloride) 250 mls @ 166.67 mls/hr IV Q12H [facility] Last Infusion: 08/20/22 02:28 Dose: 0 mls/hr Documented By: ABIEL Insulin Glargine (Insulin Glargine,Hum.Rec.Anlog 100 Unit/Ml 10 Ml Vial) 6 unit SUBCUT BEDTIME [facility] Last Admin: 08/19/22 20:30 Dose: 6 unit Documented By: ABIEL Insulin Human Lispro (Insulin Lispro 100 Unit/Ml 3 Ml Vial) 0 unit SUBCUT QIDACHS [facility]; Protocol Last Admin: 08/20/22 07:25 Dose: Not Given Documented By: GABINO Non-Admin Reason: No Insulin Coverage Latanoprost (Latanoprost 0.005 % Ophth Carli 2.5 Ml Drops) 1 drop EYE-BOTH BEDTIME [facility] Last Admin: 08/19/22 21:21 Dose: 1 drop Documented By: ABIEL Levalbuterol HCl (Levalbuterol Hcl 1.25 Mg/3 Ml Vial.Neb) 1.25 mg INHALE BID [facility] Last Admin: 08/20/22 08:00 Dose: Not Given Documented By: SHANKAR Non-Admin Reason: Patient Refused Levothyroxine Sodium (Levothyroxine Sodium 75 Mcg Tablet) 75 mcg PO DAILY@0600 [facility] Last Admin: 08/20/22 05:09 Dose: 75 mcg Documented By: ABIEL Lidocaine (Lidocaine 4 % Patch Adh..Patch) 1 patch TRANSDERMA DAILY [facility] Last Admin: 08/20/22 07:42 Dose: 1 patch Documented By: GABINO Morphine Sulfate (Morphine Sulfate 2 Mg/Ml Cartridge) 2 mg IVPUSH Q3H PRN; Protocol PRN Reason: Pain, Moderate(Pain Scale 4-6) Last Admin: 08/18/22 05:49 Dose: 2 mg Documented By: CHRIS Non-Formulary Medication (Sucroferric Oxyhydroxide [Velphoro]) 500 mg PO DAILY PRN PRN Reason: snack Non-Formulary Medication (Sucroferric Oxyhydroxide [Velphoro]) 500 mg PO TID [facility] Non-Formulary Medication (Budesonide) 0.25 mg INHALE BID [facility] Omeprazole (Omeprazole/Na Bicarb Oral Susp 20 Mg/10 Ml Ud Cup) 40 mg PO DAILY@0630 [facility] Last Admin: 08/20/22 05:09 Dose: 40 mg Documented By: ABIEL Sevelamer Carbonate (Sevelamer Carbonate Tablet 800 Mg Tablet) 800 mg PO TID [facility] Last Admin: 08/20/22 07:43 Dose: 800 mg Documented By: GABINO Labs 08/19/22 05:14 08/19/22 05:14 Labs: Laboratory Results - last 24 hr 08/19/22 08/19/22 08/19/22 10:45 15:53 20:25 POC Glucose 130 H 338 H 106 08/20/22 07:12 POC Glucose 145 H Assessment and Plan (1) Respiratory arrest: Status: Acute Plan d#4 62yo F with aortic stenosis s/p TAVR + PPM 07/23/22, CAD, HFpEF, ESRD on HD, hx CVA, COPD, HLD, HTN, SLOAN, hypothyroidism, vocal cord paralysis s/p tracheostomy presenting with dyspnea admitted to ICU for acute hypoxic resp failure due to volume overload, DKA resolved s/p UF and stepped down to IMC 08/17/22 # acute hypoxic resp failure due to volume overload/acute-chronic HFpEF - s/p UF, wean O2 as tolerated - TTE 08/17/22 - Normal left ventricular cavity size.? There is severely? increased left ventricular wall thickness.? The left ventricular systolic function is low normal.? The visually estimated ejection fraction is between 50-55%.? - Moderately increased right ventricular cavity size.? There is? moderate to severely decreased right ventricular systolic? function.? - The left atrium is severely dilated.? The right atrium is? ? ? moderately dilated.? - A bioprosthetic aortic valve is present.? The prosthetic aortic valve appears to be functioning normally.? - There is severe mitral annular calcification.? There is mild to moderate mitral valve regurgitation.? There is moderate mitral ? valve stenosis.? The mean mitral valve gradient is 7.00 mmHg.? ? - Significantly elevated right atrial pressure.? Mild pulmonary? hypertension is present.? ? # infected LLE wound - Wound Care consultation: Cleanse wounds right lower leg daily with wound wash or normal saline, pat dry, apply Xeroform and dry sterile dressing - d#3 doxy + pip-dain, change to doxy + amox-clav [renally dose the later] upon discharge, total 10d - outpt f/u with her vascular surgeon Dr Nuñez as well as with [facility] Wound Care # ESRD - HD MWF # CAD - DAPT # HTN - amlodipine # COPD not in acute exac - nebulized budesonide, bronchodilators # hypothyroidism - LT4 # DKA, resolved # DM2 - basal-bolus insulin # VTE ppx: UFH # dispo: STR planned In my clinical judgment, the patient requires continued inpatient hospitalization for the following reasons: STR placement Time Spent With Patient Time: Total time managing care of this patient today _40___ minutes. Quality Stroke Does the patient have a stroke diagnosis?: No VTE Prior VTE?: No VTE Risk Level:: Medical - moderate - high VTE Device Contraindication: N/A - Device Ordered VTE Drug Contraindication: N/A - Med Ordered
--- NOTE | 2022-08-20 22:38 | PM.PNNEP ---
Subjective Subjective Date of Service: 08/20/22 Interval history: wound pain/redness improving no dyspnea Physical Exam Vital Signs: Vital Signs: Last Vital Signs Temp 97.3 F 08/20/22 19:17 Pulse 64 08/20/22 19:26 Resp 16 08/20/22 19:26 BP 143/63 H 08/20/22 19:17 Pulse Ox 93 08/20/22 19:17 O2 Del Method Trach Collar 08/20/22 19:17 O2 Flow Rate 5 08/20/22 07:09 FiO2 28 08/20/22 07:09 BMI result Body Mass Index 24.5 Comfortable Neck is supple ; trach ostomy in place Lung: Air entry equal Heart: S1,S2, normal. No rub Abd: Soft. BS + NS : Alert.No asterexis Ext: No edema Wound in the left leg with eschar - highly suspicious for calciphylaxis Av fistula left arm with Kasi bruit Objective Data Labs 08/19/22 05:14 08/19/22 05:14 Labs: Laboratory Results - last 24 hr 08/20/22 08/20/22 08/20/22 07:12 11:02 16:16 POC Glucose 145 H 222 H 125 H 08/20/22 20:32 POC Glucose 242 H Microbiology Microbiology Results: Microbiology 08/16/22 15:50 Blood - Venous Blood Culture - Preliminary No growth after 48 hours. 08/16/22 15:41 Blood - Venous Blood Culture - Preliminary No growth after 48 hours. Procedures Date of Service Date of Service: 08/20/22 Assessment & Plan Assessment and plan (1) ESRD (end stage renal disease) on dialysis: Status: Acute Plan 62-year-old man with multiple medical problems with ESRD. Continue hemodialysis 3 times a week. No overt sinus symptoms of anemia. Next dialysis will be tomorrow. HD in AM Right leg wound. Highly suspicious for calciphylaxis. Recommend a biopsy and she will require sodium thiosulfate. Keep on phosphate binders Follow-up calcium, phosphorus, intact PTH. Time Spent With Patient Time: Total time managing care of this patient today ____ minutes. Progress Note: Quality Stroke Does the patient have a stroke diagnosis?: No
[2022-08-21 03:36] VITALS: BP 127/67; PULSE 60; RESP 18; TEMP 36.6; O2SAT 100
[2022-08-21 07:23] VITALS: BP 135/61; PULSE 56; RESP 20; TEMP 36.3; O2SAT 97
[2022-08-21 08:31] VITALS: PULSE 56; RESP 16; O2SAT 97
[2022-08-21] MEDS: Heparin Sodium,Porcine 5,000 UNIT/ML VIAL 5000 UNIT SUBCUT ×2 (09:12→16:12)
--- NOTE | 2022-08-21 09:48 | MHC.CM.PN ---
CM spoke with Daughter/HCP/Mary @ [phone] regarding PT's new recommendation for home/resume VNA. Patient is active with [facility] (RN, PT,OT), presently has 15 ROUTE CLERK hours/week, [employer]io Mcgill for trach supplies (never had O2 @ home), HD. Mary is open to consider Patient returning home rather than STR. CM will follow.
--- NOTE | 2022-08-21 09:52 | MHC.CM.PN ---
Patient lives with her who can provide some support (i.e. helping Patient into the shower, but not meds).
[2022-08-21 11:13] VITALS: BP 131/70; PULSE 60; RESP 20; TEMP 36.1; O2SAT 96
--- NOTE | 2022-08-21 13:29 | MHC.CM.PN ---
Patient has been medically cleared for dc to home today, with services.Patient is active with [facility], who has been notified of today's dc. CM attempted to meet with Patient at bedside to address IMM, but Patient was unavailable/not in the room. IMM, in Montenegrin was left on Patient's bed, for her review and a copy has been placed on the chart.MD has indicated thast he spoke with Daughter/HCP/Mary regarding the dc plan to home.
== END 2022-08-21 17:29 | disposition home health service (06) | DRG 291 ==
LOC: HO.ED 16:34 → HO.EDOVER 17:01 → HO.ICU 17:25 → HO.IMC 08-17 15:44
PROVIDERS: Nurse Practitioner Family; Admitting Provider Internal Medicine Pulmonary Disease; Emergency Provider Emergency Medicine Emergency Medical Services; PCP Internal Medicine; Visit Provider Family Medicine
DX: I13.2 Hypertensive heart and chronic kidney disease with heart failure and with stage 5 chronic kidney disease, or end stage renal disease (principal); E11.10 Type 2 diabetes mellitus with ketoacidosis without coma; J96.21 Acute and chronic respiratory failure with hypoxia; N18.6 End stage renal disease; I50.33 Acute on chronic diastolic (congestive) heart failure; N25.81 Secondary hyperparathyroidism of renal origin; L97.829 Non-pressure chronic ulcer of other part of left lower leg with unspecified severity; G47.33 Obstructive sleep apnea (adult) (pediatric); I25.10 Atherosclerotic heart disease of native coronary artery without angina pectoris; E03.9 Hypothyroidism, unspecified; E83.59 Other disorders of calcium metabolism; L08.9 Local infection of the skin and subcutaneous tissue, unspecified; J38.00 Paralysis of vocal cords and larynx, unspecified; J44.9 Chronic obstructive pulmonary disease, unspecified; E11.22 Type 2 diabetes mellitus with diabetic chronic kidney disease; Z95.2 Presence of prosthetic heart valve; Z86.73 Personal history of transient ischemic attack (TIA), and cerebral infarction without residual deficits; Z93.0 Tracheostomy status; Z20.822 Contact with and (suspected) exposure to COVID-19; Z99.2 Dependence on renal dialysis; Z95.0 Presence of cardiac pacemaker; Z79.4 Long term (current) use of insulin; Z79.82 Long term (current) use of aspirin; Z79.890 Hormone replacement therapy; Z79.899 Other long term (current) drug therapy
CPT/HCPCS: 0241U; 36415; 71045; 80048; 80053; 80202; 82010; 82040; 82140; 82803; 82947; 83605; 83735; 83880; 84100; 84484; 85025; 85027; 85610; 85730; 86140; 87040; 90999; 93005; 93306; 94002; 94003; 94640; 97116; 97162; 99285; J0692; J1643; J2250; J2270; J2543; J3371

== ENCOUNTER 2022-09-23 07:35 | Outpatient (AMB) | payer OTHER, SELFPAY ==
[2022-09-23 07:39] VITALS: BP 124/68; PULSE 52; O2SAT 97; BMI 21.5
--- NOTE | 2022-09-23 07:39 | A.OFFPC_ITS ---
Vital Signs 09/23/22 07:39 Height 5 ft 4 in Weight 56.8 kg BMI 21.5 BP 124/68 Blood Pressure Location Lt brachial Position Sitting Pulse 52 Pulse Source Pulse Oximeter Pulse Oximetry (%) 97 Oxygen Delivery Method Room Air Intake Visit Reasons: HD fu 07/13-09/01 [facility] due to mass heart attack Allergies baclofen Adverse Reaction (Severe, Verified 09/23/22 07:40) Confusion Tobacco use date assessed: 05/14/22 Dental Screening Dental Screen Date: 09/23/22 Did you have a dental visit in the last 12 months?: No Did you have a dental problem in the last 6 months where you did not have access to dental care?: No Was dental information given to patient?: No HPI HPI Comments History of Present Illness Details 62 year old female with history of CHF, severe aortic stenosis s/p TAVR placed at [facility] on 07/23/22 at [facility], COPD, vocal cord dysfunction s/p tracheostomy, hx CVA, SLOAN, ESRD on dialysis, and type 2 diabetes presents to the office for hospital follow up. She has had multiple admission in the last 3 months. Admitted at [facility] 07/13-08/11 following respiratory/cardiac arrest x 2, ROSC ob tained and was admitted to ICU. She underwent TAVR on 07/23 and developed complete heart block post-op with pacemaker subsequently placed. She was started on asa and plavix and advised to follow up with cardiology. She has IO placed which was treated with IV abx and discharged. Unfortunately, discharge summary from initial [facility] visit is unavailable for review at this time. She was admitted to [facility] from 08/16- for management of acute hypoxemic respiratory failure secondary to acute CHF exacerbation. She was initially admitted to the ICU after tracheostomy was changed from uncuffed to a Shiley adult flexible tracheostomy cuffed tube and was placed on a ventilator. She was initially empirically treated with cefepime. She was stepped down to medical floors on day 2 of admission. She was weaned to tracheostomy collar and then to room air. She was diuresed with IV Lasix and echocardiogram showed severely increased left ventricular wall thickness with left ventricular systolic function in the low normal range between 50-55% with moderate to severely decreased right ventricular systolic function. Bioprosthetic aortic valve present and functioning normally. There is also severe mitral annular calcification with [id number] regurgitation and moderate mitral valve stenosis as well as significantly elevated right atrial pressures and mild pulmonary hypertension. She was also had town to have infected left lower extremity wound which was secondary to an IO placed by EMS during her arrest. She was again treated with antibiotics with IV doxycycline and Zosyn changed to doxycycline and Augmentin for 7 days upon discharge and has been following with see wound clinic. Hemodialysis was continued during admission. She was discharged from [facility] with VNA services. She was again admitted to [facility] from 08/26- due to chest pain. CTA chest showed suspected subsegmental filling defects within 1 of the peripheral apical branches of the right upper lobe without any focal airspace consolidation. Subsequent bilateral lower extremity venous duplex ultrasound found several tiny foci of nonocclusive thrombus in the right common femoral and popliteal veins in the left femoral and popliteal veins 1 or more which represented old clot. She was evaluated by Cardiology given recent cardiac arrest and chest pain was not felt to be cardiac in nature. She was continued on Eliquis for PE/DVT along with Plavix and aspirin was discharged continued. She was followed by Wound Care and Nephrology for the previously mentioned wound of the right lower extremity and for hemodialysis. She was discharged home with [facility] with follow-up scheduled for tracheostomy care, cardiology. Today she is here with her daughter and father. She lives with her father and VNA remains in the house for both nursing and physical therapy. Her daughter reports that she has been very repetitive and forgetful since the cardiac arrest. She has been compliant with suctioning her tracheostomy. She does continue to experience some bilateral anterior rib pain due to rib fractures sustained in CPR. She has follow-up echocardiogram scheduled on 10/01 as well as appointment with endocrinology to manage her diabetes. She continues following with Nephrology with dialysis on Wednesday, Wednesday, and Wednesday. She is also going to pulmonary rehab. She otherwise has no complaints. [facility] Medical History (Updated 10/01/22 @ 18:08 by CARIN Devlin) Anemia Aortic stenosis CHF (congestive heart failure) CHF exacerbation Complete heart block Congestive heart failure COPD (chronic obstructive pulmonary disease) CVA (cerebral vascular accident) DVT of lower extremity, bilateral End stage renal disease ESRD (end stage renal disease) on dialysis ESRD on dialysis GI bleed Hypercholesterolemia Hypertension Hypertensive cardiovascular disease Hypothyroid Insomnia SLOAN (obstructive sleep apnea) PAD (peripheral artery disease) Right hip pain Toe ulcer, right Tracheostomy in place Type 2 diabetes mellitus with hyperglycemia Vocal cord paralysis Surgical History (Updated 10/01/22 @ 18:07 by CARIN Devlin) History of colonoscopy History of esophagogastroduodenoscopy (EGD) History of total hysterectomy History of tracheostomy S/P cardiac pacemaker procedure Family History Mother Chronic kidney disease CAD (coronary artery disease) Renal failure Hypertension Father No problems noted. Sister Thyroid cancer Brother No problems noted. Daughter No problems noted. Daughter No problems noted. 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 1. Little interest or pleasure in doing things: several days 2. Feeling down, depressed, or hopeless: several days 3. Trouble falling or staying asleep, or sleeping too much: several days 4. Feeling tired or having little energy: several days 5. Poor appetite or overeating: not at all 6. Feeling bad about yourself - or that you are a failure or have let yourself or your family down: not at all 7. Trouble concentrating on things, such as reading the newspaper or watching television: not at all 8. Moving or speaking so slowly that other people could have noticed. Or the opposite - being so fidgety or restless that you have been moving around a lot more than usual: not at all 9. Thoughts that you would be better off or of hurting yourself in some way: not at all Total score: 4 Depression Screening Interpretation: Positive Source: Developed by Drs. Ray Salguero, Sol B.W. Wiley Melendez and colleagues, with an educational riccardo from [employer]. Thrive Questionnaire Date Thrive assessed: 08/17/22 AUDIT C Alcohol Use Questionnaire (AUDIT-C) 1. How often do you have a drink containing alcohol?: Never 2. How many drinks containing alcohol do you have on a typical day when you are drinking?: 1 or 2 (0) 3. How often do you have six or more drinks on one occasion?: Never Total Score: 0 LEYDI-7 AMB Questionnaire LEYDI-7 Date LEYDI - 7 assessed: 09/23/22 Feeling nervous, anxious, or on edge: 0 = Not at all Not being able to stop or control worryin = Not at all Worrying too much about different things: 0 = Not at all Trouble relaxin = Not at all Being so restless that it is hard to sit still: 0 = Not at all Becoming easily annoyed or irritable: 0 = Not at all Feeling afraid as if something awful might happen: 0 = Not at all Total LEYDI-7 score (0-4 normal; 5-9 mild; 10-14 moderate; 15-21 severe): 0 Source: Developed by Drs. Ray Salguero, Wiley Martins and colleagues, with an educational riccardo from [employer]. Review of Systems Const All systems reviewed & are unremarkable except as noted in HPI and below Physical exam (Primary Care) Vital Signs: Last Vital Signs Pulse 52 09/23/22 07:39 BP 124/68 09/23/22 07:39 Pulse Ox 97 09/23/22 07:39 Oxygen Delivery Method Room Air 09/23/22 07:39 BMI result Body Mass Index 21.5 Tobacco/Smoking Status: Tobacco use Status Tobacco use date assessed 05/14/22 09/23/22 07:48 Patient Tobacco Use Status Never used Tobacco 09/23/22 07:48 e-Cigarette/Vaping Use Never Used 09/23/22 07:48 PHQ-9: PHQ-9 Score PHQ-9: Total score 4 09/28/22 17:39 Depression Screening Interpretation: Positive Thrive Assessment: Date of Thrive Assessment Date Thrive assessed 08/17/22 09/23/22 07:48 Const Other: Constitutional - Awake and Alert, No apparent distress Eyes - PERRLA, EOMI Cardiovascular - S1S2, RRR, No edema Respiratory - Normal lung expansion, Normal respiratory effort, No respiratory distress, scattered expiratory wheezes Extremities - no calf tenderness bilaterally, no swelling Skin - Warm/Dry. Large (about) 14cm x 3cm linear unstageable ulceration along the right anterior tibia with eschar and scant purulent drainage at the lower medial aspect of the wound without any surrounding erythema or warmth Neurological - Alert & oriented x3 Psychological - Appropriate affect Results AMB Hemoglobin A1c AMB Hemoglobin A1c 6.7 % Last Edit by Carmen Busch CMA on 09/23/22 07 :52 Results Reviewed Results Reviewed: Laboratory Last Values Hgb A1c (Clinic) 6.7 % (4.0-6.0) H 09/23/22 07:52 Reviewed discharge summary x 2, ct chest, cta chest, cxr, bnp, trops, cbc, bmp, echo x 2 Assessment and Plan Assessment & Plan (1) Wound infection: Code(s): T14.8XXA - Other injury of unspecified body region, initial encounter; L08.9 - Local infection of the skin and subcutaneous tissue, unspecified Plan: Spoke with Dr. Taylor due to concern for infection who does not feel patient needs ED evaluation for IV abx at this time. Picture sent. Follow up at wound care tomorrow as scheduled for further evaluation and possible debridement. No evidence of surrounding tissue infection at this time and vitals stable. (2) Acute hypoxemic respiratory failure: Code(s): J96.01 - Acute respiratory failure with hypoxia Plan: Initial respiratory arrest led to cardiac arrest with ROSC achieved. Continue with routine suctioning twice daily as directed. Tracheostomy appears clean without any labored breathing or distress. Follow up with tacheostomy care at [facility] as scheduled. (3) Cardiac arrest due to respiratory disorder: Code(s): J98.9 - Respiratory disorder, unspecified; I46.8 - Cardiac arrest due to other underlying condition Plan: ROSC. As above (4) Tracheostomy in place: Code(s): Z93.0 - Tracheostomy status Plan: As above (5) Acute on chronic heart failure with preserved ejection fraction (HFpEF): Comment: August 2022Normal left ventricular cavity size. There is severely increased left ventricular wall thickness. The left ventricular systolic function is low normal. The visually estimated ejection fraction is between 50-55%. - Moderately increased right ventricular cavity size. There is moderate to severely decreased right ventricular systolic function. - The left atrium is severely dilated. The right atrium is moderately dilated. - A bioprosthetic aortic valve is present. The prosthetic aortic valve appears to be functioning normally. - There is severe mitral annular calcification. There is mild to moderate mitral valve regurgitation. There is moderate mitral valve stenosis. The mean mitral valve gradient is 7.00 mmHg. - Significantly elevated right atrial pressure. Mild pulmonary hypertension is present. Code(s): I50.33 - Acute on chronic diastolic (congestive) heart failure Plan: Euvolemic on exam. Echo reviewed. Follow up echo 10/01. Follow up with [facility] cardiology as scheduled (6) Wound of right lower extremity: Code(s): S81.801A - Unspecified open wound, right lower leg, initial encounter (7) Complete heart block: Comment: Following TAVR procedure. Pacemaker in place Code(s): I44.2 - Atrioventricular block, complete Plan: Following TAVR . s/p permanent pacemaker. Resolved. (8) S/P cardiac pacemaker procedure: Code(s): Z95.0 - Presence of cardiac pacemaker Plan: Follow up with cardiology as scheduled (9) Pulmonary embolism: Code(s): I26.99 - Other pulmonary embolism without acute cor pulmonale Plan: Continue on eliquis. Follow up with cardiology and vascular surgery. (10) DVT of lower extremity, bilateral: Code(s): I82.403 - Acute embolism and thrombosis of unspecified deep veins of lower extremity, bilateral Plan: As above Orders: Orders AMB Hemoglobin A1c 09/23/22 Z13.9 - Encounter for screening, unspecified Medications: Discontinued amlodipine 10 mg See Protocol PO DAILY 90 tabs 0RF insulin aspart U-100 6-10 units subcutaneously 3 times a day; inject up to 30 units daily 100-150: 4U, 151-200: 6U >201: 8 U >300: 10U 15 mL 5RF glucagon 3 mg/actuation 3 mg intranasal ONCE 2 ea 4RF insulin glargine 8 units (0.08 mL) subcut QPM 15 mL 6RF Coding Level of Care Code Tele New Pt Level 5 (39265) Diagnoses Wound infection T14.8XXA; L08.9 Acute hypoxemic respiratory failure J96.01 Cardiac arrest due to respiratory disorder J98.9; I46.[address] Z93.0 Acute on chronic heart failure with preserved ejection fraction (HFpEF) I50.33 Wound of right lower extremity S81.801A Complete heart block I44.2 S/P cardiac pacemaker procedure Z95.0 Pulmonary embolism I26.99 DVT of lower extremity, bilateral I82.403 Additional Codes PHQ-9 - 86278 - PHQ-9 Billing: Y ([id number]) Time Spent (min) 60 Comment time spent reviewing above, with patient, and documentation
== END 2022-09-23 08:34 | disposition home or self-care (01) ==
PROVIDERS: PCP Internal Medicine; Visit Provider Physician Assistant
DX: T14.8XXA Other injury of unspecified body region, initial encounter (principal); L08.9 Local infection of the skin and subcutaneous tissue, unspecified; J96.01 Acute respiratory failure with hypoxia; I46.8 Cardiac arrest due to other underlying condition; Z93.0 Tracheostomy status; I50.33 Acute on chronic diastolic (congestive) heart failure; S81.801A Unspecified open wound, right lower leg, initial encounter; I44.2 Atrioventricular block, complete; Z95.0 Presence of cardiac pacemaker; I26.99 Other pulmonary embolism without acute cor pulmonale; I82.403 Acute embolism and thrombosis of unspecified deep veins of lower extremity, bilateral
CPT/HCPCS: 83036; 99215

== ENCOUNTER → 2022-10-01 10:08 | Outpatient (REF) | payer OTHER, SELFPAY ==
--- NOTE | 2022-10-01 10:16 | CA_ITS ---
Transthoracic Echocardiogram Patient (Last, First, Middle): Joseph Olmstead, Gender: Female Date of : 1960 Age: 62 Procedure Date: 10/01/2022 Procedure Type: Transthoracic Echocardiogram Location: OP Height: 162.56 cm Weight: 55.79 kg BSA: 1.59 m2 Heart Rate: 64 bpm BP: 130 / 70 mmHg Residential Sales Consultant: NELLIE Castellano MD: Aure Lozano MD Banquet Set Up Person: Sharad Vazquez MD Symptoms: S/P TRANSAORTIC VALVE REPLACEMENT Study Quality: Fair ECG Rhythm: Arrhythmia Conclusions: - 1. Low normal LV systolic function with LVEF of 50-55% 2. Severely dilated left atrium 3. Mildly dilated right ventricle with low normal RV systolic function 4. Bioprosthetic aortic valve seems to be functioning normally with mean gradient of 19 mmHg 5. Thickened mitral valves with [id number] mitral regurgitation at least moderate mitral stenosis 6. Normal RV systolic pressure 7. No gross pericardial effusion Findings Left Ventricle Normal left ventricular cavity size. There is mildly increased left ventricular wall thickness. The left ventricular systolic function is low normal. The visually estimated ejection fraction is between 50-55%. Right Ventricle Mildly increased right ventricular cavity size. There is low normal right ventricular systolic function. Atria The left atrium is severely dilated. Interatrial shunt cannot be excluded. The right atrium is mildly dilated. Aortic Valve A bioprosthetic aortic valve is present. The mean gradient is 19 mmHg. There is no aortic valve regurgitation. the mean gradient across bioprosthetic aortic valve is elevated at 19 mmHg, however calculated effective orifice area is 1.6 centimeters sq probably suggesting high stroke volume , mild patient prosthesis mismatch cannot be entirely ruled out Mitral Valve There is severe anterior and posterior mitral leaflet thickening. The anterior mitral leaflet has restricted mobility and the posterior mitral leaflet has restricted mobility. There is moderate anterior and moderate posterior mitral annular calcification. There is mild to moderate mitral valve regurgitation. There is moderate mitral valve stenosis. Pulmonic Valve The pulmonic valve is likely normal. There is mild pulmonic valve regurgitation. Tricuspid Valve Normal tricuspid valve structure. There is mild tricuspid valve regurgitation. The right ventricular systolic pressure is normal. The right ventricular systolic pressure is 26 mmHg. Normal right atrial pressure. There is no evidence of pulmonary hypertension. Great Vessels All visible segments of the aorta are normal in size. The pulmonary artery was not well visualized. There is no dilatation of the ascending aorta. Venous The inferior vena cava is normal in size and collapses greater than 50% with inspiration. Pericardium/Pleural There is no evidence of pericardial effusion. Prior Study Comparison Changes noted compared to prior study dated: 08/17/2022. RV systolic pressure is measured to be normal on this study Measurements 2D Linear Measurements IVSd: 1.37 0.6-0.9/0.6-1.0 cm LVIDd: 5.42 3.9-5.3/4.2-5.9 cm LVIDd Index: 3.41 2.4-3.2/2.2-3.1 cm/m2 LVIDs: 3.80 2.0-3.6 cm LVPWd: 1.24 0.7-1.1 cm LA Diam: 5.20 2.7-3.8/3.0-4.0 cm LAIDs Index: 3.27 1.5-2.3 cm/m2 LV Mass: 372.90 67-162/88-224 g LV Mass Index: 234.53 43-95/49-115 g/m2 LVOT Diam: 2.20 3.0+(-)1.3 cm 2D Systolic Function EF 4C: 51.40 >55% EF 2C: 58.90 >55% EF BiP: 54.50 >55% Mitral Valve MV VTI: 0.85 MV Pk Elías: 2.70 MV Mn Elías: 1.40 MV Pk Grad: 29.00 MV Mn Grad: 11.00 MV Pk E: 2.44 MV PK A: 1.30 MV Decel Time: 443.00 E/A: 1.90 E'Lateral: 7.62 E'Medial: 6.85 E/E' Med: 35.60 E/E' Lat: 32.00 PHT: 130.00 MVA PHT: 1.69 MVA Continuity: 1.18 Decel Weston: 5.51 MR Vol - PW Dopp: 19.47 MR VTI: 1.77 MR ERO: 11.00 MR Alias Elías: 0.39 MR RAD: 0.50 Aortic Valve AoV Pk Elías: 2.91 AoV Mn Elías: 2.04 AoV VTI: 0.63 AoV Pk Grad: 34.00 Aov Mn Grad: 19.00 SHAR Cont.VTI: 1.60 LVOT LVOT Pk Elías: 1.39 LVOT Mn Elías: 0.96 LVOT VTI: 0.27 LVOT Pk Grad: 8.00 LVOT Mn Grad: 4.00 LVOT Diam: 2.20 LVOT Area: 3.80 Diastolic Function MV Pk E: 2.44 MV Pk A: 1.30 E/A: 1.90 E'Medial: 6.85 E/E' Med: 35.60 E' Laterial: 7.62 E/E' Lat: 32.00 Right Ventricle TAPSE (mm): 18.70 TVS' Elías: 9.46 Tricuspid Valve TR Pk Elías: 2.42 TR Pk Grad: 23.00 RA Press: 3.00 RVSP: 26.00 Great Vessels Aorta Sinus of Valsalva: 3.50 2.0-3.5 cm Ao Asc: 3.40 2.1-3.4 cm Pulmonary Valve PV Pk Elías: 1.28 Peak PV Grad: 7.00 Updated in Other Vendor System with Status of Final Sharad Vazquez MD electronically signed on 10/02/2022 2:40:10 PM with status of Final
== END ==
LOC: HO.CARD 10:08
PROVIDERS: PCP Internal Medicine; Visit Provider Internal Medicine Cardiovascular Disease
DX: Z95.4 Presence of other heart-valve replacement (principal)
CPT/HCPCS: 93306

== ENCOUNTER → 2022-10-01 10:16 | Outpatient (BNV) | payer OTHER, SELFPAY | PROVIDERS: PCP Internal Medicine; Visit Provider Internal Medicine Cardiovascular Disease | DX: I34.0 Nonrheumatic mitral (valve) insufficiency (principal); I34.81 Nonrheumatic mitral (valve) annulus calcification | CPT/HCPCS: 93306 ==

== ENCOUNTER 2022-10-07 19:38 | Emergency (ER) | payer OTHER, SELFPAY ==
--- NOTE | 2022-10-07 20:05 | ED_ITS ---
HPI - CPR General Chief Complaint: Cardiac Arrest/CPR Stated Complaint: Found unresponsive after dialysis, cardiac arrest Time Seen by Provider: 10/07/22 19:45 Source: EMS Mode of arrival: EMS Limitations: other History of Present Illness HPI narrative: Patient comes to the emergency room in cardiac arrest. Patient had a witnessed cardiac arrest approximately 18:45. According to the family in EMS, patient had dialysis earlier today. When patient got home, patient said that she was not feeling well. At 18:45, patient was found unresponsive by the patient's daughter, who lowered the patient to the ground to start CPR. EMS arrived at 650. Per EMS, between their arrival to the patient's residence and hospital, patient was in ventricular fibrillation, shocked 3 times, given 300 mg of amiodarone, multiple doses of epinephrine, calcium gluconate, magnesium and bicarbonate. Patient arrived to emergency room approximately at 19:35. Patient was still in cardiac arrest, by then, patient had been in cardiac arrest and CPR in progress for 50 minutes. Related Data Home Medications Medication Instructions Recorded Confirmed sevelamer carbonate 800 mg tablet 800 mg PO TID 12/19/20 08/16/22 gabapentin 100 mg capsule 100 mg PO DAILY 12/11/21 08/16/22 levothyroxine 75 mcg tablet 75 mcg PO DAILY@0600 02/04/22 08/16/22 aspirin 81 mg tablet,delayed 81 mg PO DAILY 05/19/22 08/16/22 release (Adult Aspirin Regimen) latanoprost 0.005 % eye drops 1 drp ophthalmic (eye) BEDTIME 05/19/22 08/16/22 brimonidine 0.2 % eye drops 1 drp ophthalmic (eye) DAILY 08/16/22 08/16/22 glucagon 3 mg/actuation nasal 3 mg intranasal ONCE PRN 08/16/22 08/16/22 spray (Baqsimi) Hypoglycemia lidocaine-prilocaine 2.5 %-2.5 % 1 appl topical MOWEFR PRN fistula 08/16/22 08/16/22 topical cream pain sucroferric oxyhydroxide 500 mg 500 mg PO DAILY PRN snack 08/16/22 08/16/22 chewable tablet (Velphoro) budesonide 0.25 mg/2 mL suspension 0.25 mg inhalation BID 08/18/22 08/18/22 for nebulization Previous Rx's Medication Instructions Recorded blood sugar diagnostic (FreeStyle #300 ea 12/10/20 Lite Strips) AUTO PAP PS6-20 CM h20 humidified #1 ea 01/03/21 AIR pen needle, diabetic 31 gauge x #100 ea 09/23/21 5/16 (Comfort EZ Pen [place]) flash glucose sensor (FreeStyle #6 kits 09/30/21 Rusty 14 Day Sensor kit) pen needle, diabetic 31 gauge x #100 ea 12/10/21 3/16 (BD Ultra-Fine Mini Pen Needle) Hospital bed #1 ea 01/23/22 Shower Chair #1 ea 01/23/22 levalbuterol HCl 1.25 mg/3 mL 1.25 mg (3 mL) inhalation BID #540 02/27/22 solution for nebulization mL lidocaine 5 % topical patch 1 patch topical DAILY #15 ea 06/02/22 (Lidoderm) pen needle, diabetic 32 gauge x #50 ea 07/09/22 (BD Ultra-Fine Nelli Pen Needle) flash glucose scanning reader #1 ea 08/14/22 (FreeStyle Rusty 2 [place]) amoxicillin 500 mg-potassium 1 tab PO BID #14 tabs 08/20/22 clavulanate 125 mg tablet doxycycline monohydrate 100 mg 100 mg PO BID #14 tabs 08/20/22 tablet amlodipine 5 mg tablet 10 mg PO DAILY #90 tabs 09/02/22 clopidogrel 75 mg tablet 75 mg PO DAILY #30 tabs 09/03/22 insulin aspart U-100 100 unit/mL 1 sliding scale dose subcut TIDAC 09/03/22 (3 mL) subcutaneous pen (Novolog #15 mL FlexPen U-100 Insulin aspart) insulin glargine 100 unit/mL (3 6 unit (0.06 mL) subcut BEDTIME 09/03/22 mL) subcutaneous pen (Lantus #15 mL Solostar U-100 Insulin) albuterol sulfate 90 mcg/actuation 2 inh inhalation Q6H PRN shortness 10/05/22 aerosol inhaler of breath or wheezing 30 days #18 grams gabapentin 100 mg capsule 100 mg PO BEDTIME 30 days #30 caps 10/05/22 Allergies Allergy/AdvReac Type Severity Reaction Status Date / Time baclofen AdvReac Severe Confusion Verified 09/23/22 07:40 Review of Systems Review of Systems: Yes Unobtainable due to mental condition [facility] Past Medical History Medical History Anemia Aortic stenosis CHF (congestive heart failure) CHF exacerbation Complete heart block Congestive heart failure COPD (chronic obstructive pulmonary disease) CVA (cerebral vascular accident) DVT of lower extremity, bilateral End stage renal disease ESRD (end stage renal disease) on dialysis ESRD on dialysis GI bleed Hypercholesterolemia Hypertension Hypertensive cardiovascular disease Hypothyroid Insomnia SLOAN (obstructive sleep apnea) PAD (peripheral artery disease) Right hip pain Toe ulcer, right Tracheostomy in place Type 2 diabetes mellitus with hyperglycemia Vocal cord paralysis Surgical History (Updated 10/01/22 @ 18:07 by CARIN Devlin) History of colonoscopy History of esophagogastroduodenoscopy (EGD) History of total hysterectomy History of tracheostomy S/P cardiac pacemaker procedure Family History Family History Mother Chronic kidney disease CAD (coronary artery disease) Renal failure Hypertension Father No problems noted. Sister Thyroid cancer Brother No problems noted. Daughter No problems noted. Daughter No problems noted. 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 We did 2 more cycles of CPR and then called time of at 19:42 -I reviewed patient's inpatient medical records, patient had an extensive and complicated medical history. -the primary cause of is unclear, which led to cardiac arrest. -I discussed the patient with the medical social consultant, case was declined, case Differential Diagnosis Differential Diagnoses: The differential diagnosis associated with the presentation includes (Cardiac arrest, respiratory distress, arrhythmias, severe electrolyte imbalance) Independent Historian Clinical information obtained from an independent historian. History obtained from or confirmed by: Spouse and Other (Daughters) External Record Review External record reviewed: Inpatient record Discharge Plan Discharge Clinical Impression: Cardiac arrest Patient Disposition: Prescriptions: No Action (DME) pen needle, diabetic [Comfort EZ Pen [place]] 31 gauge x 5/16 needle See Rx Instructions .Route Qty: 100 5RF Rx Instructions: uses 4X/day (DME) pen needle, diabetic [BD Ultra-Fine Mini Pen Needle] 31 gauge x 3/16 needle See Rx Instructions .ROUTE .MEDSUPPLY Qty: 100 11RF Rx Instructions: As directed (DME) Hospital bed See Rx Instructions .Route .MEDSUPPLY Qty: 1 0RF Rx Instructions: As directed (DME) Shower Chair See Rx Instructions .Route .MEDSUPPLY Qty: 1 0RF Rx Instructions: As directed levalbuterol HCl 1.25 mg/3 mL solution for nebulization 1.25 mg inhalation BID Qty: 540 0RF lidocaine [Lidoderm] 5 % adhesive patch,medicated 1 patch topical DAILY Qty: 15 0RF Rx Instructions: leave on most painful area for up to 12 hrs (DME) pen needle, diabetic [BD Ultra-Fine Nelli Pen Needle] 32 gauge x 5/32 needle See Rx Instructions .Route Qty: 50 5RF Rx Instructions: As directed (DME) FreeStyle Rusty 2 [place] Misc See Rx Instructions .Route Qty: 1 0RF Rx Instructions: As directed amlodipine 5 mg tablet 10 mg PO DAILY Qty: 90 0RF Protocol: Hold for SBP< HOLD for SBP < : 90 insulin aspart U-100 [Novolog FlexPen U-100 Insulin] 100 unit/mL (3 mL) insuli n pen 1 sliding scale dose subcut TIDAC Qty: 15 11RF Rx Instructions: Less than 80 give 2 glucose pill, 81-150 no coverage, 151-230 2 units, 231- 280 4 units, 281-330 6 units, 331-380 8 units, more than 380 10 units insulin glargine [Lantus Solostar U-100 Insulin] 100 unit/mL (3 mL) insulin pen 6 unit subcut BEDTIME Qty: 15 0RF clopidogrel 75 mg tablet 75 mg PO DAILY Qty: 30 2RF albuterol sulfate 90 mcg/actuation HFA aerosol inhaler 2 inh inhalation Q6H PRN (Reason: shortness of breath or wheezing) 30 Days Qty: 18 12RF gabapentin 100 mg capsule 100 mg PO BEDTIME 30 Days Qty: 30 0RF sevelamer carbonate 800 mg tablet 800 mg PO TID levothyroxine 75 mcg tablet 75 mcg PO DAILY@0600 brimonidine 0.2 % drops 1 drp ophthalmic (eye) DAILY lidocaine-prilocaine 2.5-2.5 % cream 1 appl topical MOWEFR PRN (Reason: fistula pain) Rx Instructions: 1-2 HOURS BEFORE DIALYSIS Baqsimi 3 mg/actuation spray,non-aerosol 3 mg intranasal ONCE PRN (Reason: Hypoglycemia) Velphoro 500 mg tablet,chewable 500 mg PO DAILY PRN (Reason: snack) budesonide 0.25 mg/2 mL suspension for nebulization 0.25 mg inhalation BID doxycycline monohydrate 100 mg tablet 100 mg PO BID Qty: 14 0RF amoxicillin-pot clavulanate 500-125 mg tablet 1 tab PO BID Qty: 14 0RF (DME) FreeStyle Lite Strips Strip See Rx Instructions .ROUTE .MEDSUPPLY Qty: 300 3RF Rx Instructions: As directed check the BS TID (DME) FreeStyle Rusty 14 Day Sensor Kit See Rx Instructions .ROUTE .MEDSUPPLY Qty: 6 3RF Rx Instructions: As directed (DME) AUTO PAP PS6-20 CM h20 humidified AIR See Rx Instructions .Route .MEDSUPPLY Qty: 1 0RF Rx Instructions: As directed gabapentin 100 mg capsule 100 mg PO DAILY latanoprost 0.005 % drops 1 drp ophthalmic (eye) BEDTIME aspirin [Adult Aspirin Regimen] 81 mg tablet,delayed release (DR/EC) 81 mg PO DAILY
--- NOTE | 2022-10-07 20:15 | MHC.EDTECH ---
Called [facility] @1952, spoke with Verna and was placed personal carer back list Recieved call back @ 1904, spoke with verna again. Call given to .
--- NOTE | 2022-10-07 21:04 | PC.NURSE ---
EMS: Pt had dialysis today, came home. reported to family that she was feeling unwell. At approximately 1845- family found her apneic and pulseless and began cpr. EMS took over CPR at 1850. ACLS initiated. Ventilated through 7.5 uncuffed shiley trach. Opening rhythm was Vfib. Pt received 3 shocks- 7 doses of epi 1mg 1;10,000, 300mg amioderone, 2g Mag, 50 MEq Sodium Bicarb, 1g calcium. 1938-ems arrived at [facility]. Pt brought to ED5. 1st pulse check at that time. No pulse noted. Asystolic on the quality assurance monitor final. CPR resumed via Ja. 1939, 1amp of bicarb given and 1amp of epi 1;10,000 given. POC 334. 1940-Pulse rechecked. No pulse felt. Asystole on the quality assurance monitor final. POCUS applied. No cardiac activity detected via US. 1941-Time of . 1954- [facility] contacted ; rules examiner contacted . Gold color rings x 2 given to daughter Gay Hyatt [phone].
--- NOTE | 2022-10-07 21:16 | PC.NURSE ---
2116: Zena from [facility] contacted back. Declined at this time.
--- NOTE | 2022-10-07 21:22 | PC.NURSE ---
Per daughter at this time family to use [facility]
[2022-10-08 06:57] LABS: Glucose, Whole Blood 334 mg/dL (60-115)
== END 2022-10-07 22:16 | disposition expired ==
PROVIDERS: Emergency Provider Emergency Medicine
DX: I46.9 Cardiac arrest, cause unspecified (principal); Z79.899 Other long term (current) drug therapy
CPT/HCPCS: 82947; 96374; 96375; 99283; 99285; J0171